=== PATIENT | female | born 1955 | race Caucasian/White ===

== ENCOUNTER 2017-04-30 16:00 | Outpatient (RCR) | payer MEDICAID, SELFPAY ==
[2017-03-31 00:25] VITALS: BP 134/72; PULSE 59; RESP 18; TEMP 36.1
[2017-04-23 16:08] VITALS: BP 136/89; PULSE 63; RESP 16; TEMP 35.7
--- NOTE | 2017-04-23 23:35 | PN.PCM_ITS ---
(1) Localized edema Status: Chronic Code(s): R60.0 - Localized edema (2) Chronic ulcer of left lower extremity with fat layer exposed Status: Resolved Code(s): L97.922 - Non-pressure chronic ulcer of unspecified part of left lower leg with fat layer exposed (3) Venous insufficiency Status: Chronic Code(s): I87.2 - Venous insufficiency (chronic) (peripheral) Type of Wound Date of Service: 04/26/17 Chief Complaint: Chronic ulcer to the left lower extremity History of Wound: This 61 year old patient returns to the wound healing center for follow up of her chronic ulcer to her left ellison that has returned this past week. She has continued bilateral lower extremity edema. She denies fever, chills, nausea, vomiting, leg pain, shortness of breath, chest pain. She had venous ablation procedure performed with . She admits she has not been wearing compression dressing since her last visit. She denies trauma. Progress of Wound: Wound return - Physical Exam Vital Signs Temp Pulse Resp BP 96.2 F L 63 16 136/89 H 04/23/17 16:08 04/23/17 16:08 04/23/17 16:08 04/23/17 16:08 General: Alert, Oriented x3, Cooperative Extremities: No cyanosis, Capillary Refill Less than 3 Seconds, No Calf Tenderness - Negative [place] and Castillo sign bilateral, Diminished Peripheral Pulses, Edema Skin: Ulcer/ Wound - No purulence, no erythema, no streaking, no odor, no infection bilateral. The skin is atrophic bilateral Wound Measurements and Assessment - Nurse 1 - General Ulcer Measurement Start: 04/23/17 16:01 Freq: Status: Active Protocol: Activity Type Activity Date Activity User E-Sign Co-Sign Detail Recorded Client Recorded Date Recorded By Document 04/23/17 16:01 MW [id number] 04/23/17 16:07 MW 04/23/17 16:01 Wound Center Nurse 1 [Ulcer Assessment Protocol: MINDY.WD.LOC] #3 Left [place] -Combined with other wound No -Current Size (cm) - Length 2.5 -Current Size (cm) - Width 2.1 -Current Size (cm) - Depth 0.1 -Total Square Cm 5.25 -Date of Last Picture (Recall this 04/23/17 field) -Photo Taken Yes -Epithelialization None Present -Tunneling No -Undermining/Tunneling No -Circular Undermining No -Exudate Amt Small (1-33%) -Exudate Type Serosanguineous -Wound Margin Flat & Intact -Granulation Amt Medium (34-66%) -Granulation Quality Red -Slough/Fibrin Yes -Necrosis Amt Small (1-33%) -Necrotic Tissue Type Adherent Slough -Structure Exposed N/A -Texture (Jenny-wound Skin Appearance) Assessed Localized Edema Scarring -Moisture (Jenny-wound Skin Appearance Assessed ) Dry/Scaly -Color (Jenny-wound Skin Appearance) Assessed Erythema Hemosiderin Staining -Temperature (Jenny-wound Skin No Abnormality Appearance) (Pt Warm) -Tenderness on Palpation (Jenny-wound No Skin Appearance) -Ulcer Cleansing Rinsed/ Irrigated with Saline -Foul Odor after Cleansing No -Anesthetic Used 4% Lidocaine Solution [Edema Assessment] -Lower Limb Edema Present Yes -Left Calf (cm) 50.2 -Left Ankle (cm) 30.6 WC - Nurse 2 - General Ulcer CM Notes Start: 04/23/17 16:01 Freq: Status: Active Protocol: Activity Type Activity Date Activity User E-Sign Co-Sign Detail Recorded Client Recorded Date Recorded By Document 04/23/17 16:45 [id number] 04/23/17 16:45 04/23/17 16:45 Wound Center Nurse 2 [Procedure/Treatment] #3 Left [place] -Time 16:45 -Correct Patient Yes -Correct Side, Site, Position Yes -Correct Procedure Yes -Procedure Performed Yes -Type of Procedure Debridement -Clinical Debridement Subcutaneous -Post Debridement Size (cm) - Length 2.5 -Post Debridement Size (cm) - Width 2.2 -Post Debridement Size (cm) - Depth 0.1 -Total Square Cm 5.50 -Wound/Ulcer Outcome Not Healed -Ulcer Cleansing Rinsed/ Irrigated with Saline -Foul Odor after Cleansing No -Bioengineered Tissue No -Cetacaine [place] No -Bleeding Controlled with Pressure -Treatment Response Procedure Tolerated Well [See Physician Procedure note for Specifics] Pain Scale: 0-10 Numeric [Pain] -Is Patient Pain Free? Yes Musculoskeletal: No Tenderness to Palpation of Joints or Extremities, Muscle Wasting Neurological: - - Lack of epicritic sensation to light touch bilateral Psych/Mental Status: Normal Affect, Appropriate Debridement Note Post-Debridement Measurements/Treatment WC - Nurse 2 - General Ulcer CM Notes Start: 04/23/17 16:01 Freq: Status: Active Protocol: Activity Type Activity Date Activity User E-Sign Co-Sign Detail Recorded Client Recorded Date Recorded By Document 04/23/17 16:45 JEFF [id number] 04/23/17 16:45 JEFF 04/23/17 16:45 Wound Center Nurse 2 #3 Left [place] -Time 16:45 -Correct Patient Yes -Correct Side, Site, Position Yes -Correct Procedure Yes -Procedure Performed Yes -Type of Procedure Debridement -Clinical Debridement Subcutaneous -Post Debridement Size (cm) - Length 2.5 -Post Debridement Size (cm) - Width 2.2 -Post Debridement Size (cm) - Depth 0.1 -Total Square Cm 5.50 -Wound/Ulcer Outcome Not Healed -Ulcer Cleansing Rinsed/ Irrigated with Saline -Foul Odor after Cleansing No -Bioengineered Tissue No -Cetacaine [place] No -Bleeding Controlled with Pressure -Treatment Response Procedure Tolerated Well Pain Scale: 0-10 Numeric Is Patient Pain Free? Yes Wound debrided: Leg Laterality: Left Type of Debridement: Excisional debridement Anesthesia Used: 4% Lidocaine Solution Depth: in the subcutaneous layer Percentage of wound debrided: 100 Instrument Used: #15 blade Tissue Removed: Fibrous, devitalized subcutaneous, biofilm, slough Severity: Fat Layer Exposed Amount of bleeding with debridement: Mild Bleeding Controlled with: Pressure Patient tolerated procedure well Assessment/Plan Assessment: Chronic ulcer to the left ellison -healed today. Bilateral lower extremity edema / venous insufficiency now status post intervention. acute deep venous thrombosis left lower extremity treated and now resolved Plan: I reviewed and discussed the case with the patient today. Her ulcer site has returned today. The ulcer site was debrided subcutaneously as noted in the clinical panel. A dressing of [place] was applied. An additional compression dressing, 3M2L was applied. To return for a wound center nurse visit midweek to change his compression dressing. Compliance was reiterated today and she has recently been adherent. A new prescription for CircAid compression wraps were provided. . We discussed long-term compression options including compression stockings with zippers, Circaid wraps, or utilizing a compression stocking donning device. She is unable to make a decision at this time and elects to think about it the next week.
[2017-04-30 15:54] VITALS: BP 140/72; PULSE 69; RESP 18; TEMP 36.6
--- NOTE | 2017-04-30 16:07 | PCM.WC.PN ---
(1) Chronic ulcer of left lower extremity with fat layer exposed Status: Chronic Current Visit: Yes Code(s): L97.922 - Non-pressure chronic ulcer of unspecified part of left lower leg with fat layer exposed (2) Localized edema Status: Chronic Current Visit: Yes Code(s): R60.0 - Localized edema (3) Venous insufficiency Status: Chronic Current Visit: Yes Code(s): I87.2 - Venous insufficiency (chronic) (peripheral) Type of Wound Date of Service: 04/30/17 Chief Complaint: Chronic ulcer to the left lower extremity History of Wound: This 61 year old patient returns to the wound healing center for follow up of her chronic ulcer to her left ellison that has returned recently. She has continued bilateral lower extremity edema. She had venous ablation procedure performed with . She admits she has not been wearing compression dressing since her last visit as advised and has difficulty placing his on. She she did think about which type of compression device would work best for her and elects to proceed forward with the CircAid Velcro wraps. She denies fever, chill, nausea, vomiting, loss of appetite. Progress of Wound: Stable - Physical Exam Vital Signs Temp Pulse Resp BP 97.8 F 69 18 140/72 H 04/30/17 15:54 04/30/17 15:54 04/30/17 15:54 04/30/17 15:54 General: Alert, Oriented x3, Cooperative Extremities: No cyanosis, Capillary Refill Less than 3 Seconds, No Calf Tenderness - Negative Castillo sign bilateral, Diminished Peripheral Pulses, Edema - +3 bilateral lower extremities Skin: Ulcer/ Wound - No purulence, no erythema, no streaking, no odor, no infection left lower extremity. The peripheral skin is atrophic. Wound Measurements and Assessment WC - Nurse 1 - General Ulcer Measurement Start: 04/23/17 16:01 Freq: Status: Active Protocol: Activity Type Activity Date Activity User E-Sign Co-Sign Detail Recorded Client Recorded Date Recorded By Document 04/30/17 15:54 RB [id number] 04/30/17 15:57 RB 04/30/17 15:54 Wound Center Nurse 1 [Ulcer Assessment Protocol: MINDY.WD.LOC] #3 Left [place] -Combined with other wound No -Current Size (cm) - Length 3.1 -Current Size (cm) - Width 2.6 -Current Size (cm) - Depth 0.1 -Total Square Cm 8.06 -Photo Taken No -Tunneling No -Undermining/Tunneling No -Circular Undermining No -Classification - Thickness Full Thickness without Exposed Support Structure -Exudate Amt Small (1-33%) -Exudate Type Serosanguineous -Wound Margin Distinct, Outline Attached -Granulation Amt Medium (34-66%) -Granulation Quality Red -Slough/Fibrin Yes -Necrosis Amt Medium (34-66%) -Necrotic Tissue Type Adherent Slough -Structure Exposed N/A -Texture (Jenny-wound Skin Appearance) Assessed -Moisture (Jenny-wound Skin Appearance Assessed ) -Color (Jenny-wound Skin Appearance) Hemosiderin Staining -Temperature (Jenny-wound Skin No Abnormality Appearance) (Pt Warm) -Tenderness on Palpation (Jenny-wound No Skin Appearance) -Ulcer Cleansing Wound Cleanser -Foul Odor after Cleansing No -Anesthetic Used 4% Lidocaine Solution [Edema Assessment] -Lower Limb Edema Present Yes -Left Calf (cm) 45 -Left Ankle (cm) 27 WC - Nurse 2 - General Ulcer CM Notes Start: 04/23/17 16:01 Freq: Status: Active Protocol: Activity Type Activity Date Activity User E-Sign Co-Sign Detail Recorded Client Recorded Date Recorded By Document 04/30/17 16:04 [id number] 04/30/17 16:05 JEFF 04/30/17 16:04 Wound Center Nurse 2 [Procedure/Treatment] #3 Left [place] -Time 16:05 -Correct Patient Yes -Correct Side, Site, Position Yes -Correct Procedure Yes -Procedure Performed Yes -Type of Procedure Debridement -Clinical Debridement Subcutaneous -Post Debridement Size (cm) - Length 3.2 -Post Debridement Size (cm) - Width 2.6 -Post Debridement Size (cm) - Depth 0.1 -Total Square Cm 8.32 -Wound/Ulcer Outcome Not Healed -Ulcer Cleansing Rinsed/ Irrigated with Saline -Foul Odor after Cleansing No -Bioengineered Tissue No -Cetacaine [place] No -Bleeding Controlled with Pressure -Treatment Response Procedure Tolerated Well [See Physician Procedure note for Specifics] Pain Scale: 0-10 Numeric [Pain] -Is Patient Pain Free? Yes Musculoskeletal: No Tenderness to Palpation of Joints or Extremities, Muscle Wasting, Tenderness - Pain with wound manipulation, - - Compartment left lower extremity are soft Neurological: - - Lack of sensation to light touch periwound and intact with wound debridement discomfort Psych/Mental Status: Normal Affect, Appropriate Debridement Note Post-Debridement Measurements/Treatment WC - Nurse 2 - General Ulcer CM Notes Start: 04/23/17 16:01 Freq: Status: Active Protocol: Activity Type Activity Date Activity User E-Sign Co-Sign Detail Recorded Client Recorded Date Recorded By Document 04/23/17 16:45 [id number] 04/23/17 16:45 Document 04/30/17 16:04 [id number] 04/30/17 16:05 04/23/17 04/30/17 16:45 16:04 Wound Center Nurse 2 #3 Left [place] -Time 16:45 16:05 -Correct Patient Yes Yes -Correct Side, Site, Position Yes Yes -Correct Procedure Yes Yes -Procedure Performed Yes Yes -Type of Procedure Debridement Debridement -Clinical Debridement Subcutaneous Subcutaneous -Post Debridement Size (cm) - Length 2.5 3.2 -Post Debridement Size (cm) - Width 2.2 2.6 -Post Debridement Size (cm) - Depth 0.1 0.1 -Total Square Cm 5.50 8.32 -Wound/Ulcer Outcome Not Healed Not Healed -Ulcer Cleansing Rinsed/ Rinsed/ Irrigated with Irrigated with Saline Saline -Foul Odor after Cleansing No No -Bioengineered Tissue No No -Cetacaine [place] No No -Bleeding Controlled with Pressure Pressure -Treatment Response Procedure Procedure Tolerated Well Tolerated Well Pain Scale: 0-10 Numeric Is Patient Pain Free? Yes Yes Wound debrided: Leg Laterality: Left Type of Debridement: Excisional debridement Anesthesia Used: 4% Lidocaine Solution Depth: in the subcutaneous layer Percentage of wound debrided: 100 Instrument Used: 5mm curette Tissue Removed: Fibrous, devitalized subcutaneous, biofilm, slough Severity: Fat Layer Exposed Amount of bleeding with debridement: Mild Bleeding Controlled with: Pressure Patient tolerated procedure well Assessment/Plan Active Problems Localized edema (Chronic) Chronic ulcer of left lower extremity with fat layer exposed (Chronic) Venous insufficiency (Chronic) Assessment: Chronic ulcer to the left ellison. Bilateral lower extremity edema / venous insufficiency now status post intervention. acute deep venous thrombosis left lower extremity treated and now resolved Plan: I reviewed and discussed the case with the patient today. The ulcer site was debrided subcutaneously as noted in the clinical panel. A dressing of [place] was applied. An additional compression dressing, 3M2L was applied. Compliance was reiterated today and she has recently been adherent. A new prescription for CircAid compression wraps were provided today; she elects to proceed forward with this device. . To resume nutritional supplementation to optimize healing. To avoid idle standing and sitting to help reduce fluid collection in the lower extremities. She was reassured no signs of infection noted today. To monitor. To return to clinic in 1 week at the wound care center or call sooner if questions or concerns. I answered all of her questions today.
== END 2017-04-30 23:59 ==
LOC: WC 16:00
PROVIDERS: Family Provider Internal Medicine; PCP Internal Medicine; Visit Provider Podiatrist
DX: I87.2 Venous insufficiency (chronic) (peripheral) (principal); R60.0 Localized edema; L97.822 Non-pressure chronic ulcer of other part of left lower leg with fat layer exposed; Z86.718 Personal history of other venous thrombosis and embolism
CPT/HCPCS: 11042; 29581

== ENCOUNTER 2017-05-28 16:00 | Outpatient (RCR) | payer MEDICAID, SELFPAY ==
[2017-04-30 15:54] VITALS: BP 140/72
[2017-05-01 00:28] VITALS: PULSE 69; RESP 18; TEMP 36.6
[2017-05-07 15:54] VITALS: BP 142/68; PULSE 71; RESP 18; TEMP 36.4
--- NOTE | 2017-05-07 16:53 | PCM.WC.PN ---
(1) Left leg pain Status: Chronic Current Visit: Yes Code(s): M79.605 - Pain in left leg (2) Deep vein thrombosis, lower left extremity Status: Suspected Current Visit: Yes Code(s): I82.402 - Acute embolism and thrombosis of unspecified deep veins of left lower extremity (3) Venous insufficiency of left leg Status: Chronic Current Visit: No Code(s): I87.2 - Venous insufficiency (chronic) (peripheral) (4) Chronic ulcer of left lower extremity with fat layer exposed Status: Chronic Current Visit: Yes Code(s): L97.922 - Non-pressure chronic ulcer of unspecified part of left lower leg with fat layer exposed (5) Venous insufficiency Status: Chronic Current Visit: Yes Code(s): I87.2 - Venous insufficiency (chronic) (peripheral) Type of Wound Date of Service: 05/07/17 Chief Complaint: Chronic ulcer to the left lower extremity History of Wound: This 61 year old patient returns to the wound healing center for follow up of her chronic ulcer to her left ellison that has returned recently. She has continued bilateral lower extremity edema. She had venous ablation procedure performed with . This [employer] compression wrap [employer] has called her and she has not been able to answer return the phone calls. She denies fever, chill, nausea, vomiting, loss of appetite. She does have recent increased left leg discomfort with touch. She denies shortness of breath or chest pain. Progress of Wound: Stable - Physical Exam Vital Signs Temp Pulse Resp BP 97.5 F L 71 18 142/68 H 05/07/17 15:54 05/07/17 15:54 05/07/17 15:54 05/07/17 15:54 General: Alert, Oriented x3, Cooperative Extremities: No cyanosis, Capillary Refill Less than 3 Seconds, Diminished Peripheral Pulses, Edema - Increased left lower extremity, Tenderness - Positive Castillo sign left lower extremity and negative right lower extremity. There is no left leg erythema or calor. Skin: Ulcer/ Wound - No purulence, no erythema, streaking, no necrosis, no infection, no odor left lower extremity. The peripheral skin is atrophic. There is improved and increased granulation tissue to the wound today. Wound Measurements and Assessment WC - Nurse 1 - General Ulcer Measurement Start: 05/07/17 15:54 Freq: Status: Active Protocol: Activity Type Activity Date Activity User E-Sign Co-Sign Detail Recorded Client Recorded Date Recorded By Document 05/07/17 15:54 RB [id number] 05/07/17 16:05 RB 05/07/17 15:54 Wound Center Nurse 1 [Ulcer Assessment Protocol: WC.WD.LOC] #3 Left [place] -Combined with other wound No -Current Size (cm) - Length 3.6 -Current Size (cm) - Width 3 -Current Size (cm) - Depth 0.2 -Total Square Cm 10.8 -Photo Taken No -Epithelialization Small 1-33% -Tunneling No -Undermining/Tunneling No -Circular Undermining No -Classification - Thickness Full Thickness without Exposed Support Structure -Exudate Amt Medium (34-66%) -Exudate Type Serosanguineous -Wound Margin Fibrotic Scar, Thickened Scar -Granulation Amt Large (67-100%) -Granulation Quality [place] Red -Slough/Fibrin Yes -Necrosis Amt Small (1-33%) -Necrotic Tissue Type Adherent Slough -Structure Exposed N/A -Texture (Jenny-wound Skin Appearance) Assessed -Moisture (Jenny-wound Skin Appearance Assessed ) -Color (Jenny-wound Skin Appearance) Hemosiderin Staining -Temperature (Jenny-wound Skin No Abnormality Appearance) (Pt Warm) -Tenderness on Palpation (Jenny-wound No Skin Appearance) -Ulcer Cleansing Wound Cleanser -Foul Odor after Cleansing No -Anesthetic Used 5% Lidocaine Gel [Edema Assessment] -Left Calf (cm) 50 -Left Ankle (cm) 27 - Nurse 2 - General Ulcer CM Notes Start: 05/07/17 15:54 Freq: Status: Active Protocol: Activity Type Activity Date Activity User E-Sign Co-Sign Detail Recorded Client Recorded Date Recorded By Document 05/07/17 16:19 TM [id number] 05/07/17 16:21 05/07/17 16:19 Wound Center Nurse 2 [Procedure/Treatment] #3 Left [place] -Time 16:19 -Correct Patient Yes -Correct Side, Site, Position Yes -Correct Procedure Yes -Procedure Performed Yes -Type of Procedure Debridement -Clinical Debridement Subcutaneous -Post Debridement Size (cm) - Length 3.7 -Post Debridement Size (cm) - Width 3.1 -Post Debridement Size (cm) - Depth 0.2 -Total Square Cm 11.47 -Wound/Ulcer Outcome Not Healed -Ulcer Cleansing Rinsed/ Irrigated with Saline -Foul Odor after Cleansing No -Bioengineered Tissue No -Topical Lidocaine (%) 5 -Bleeding Controlled with Pressure -Treatment Response Procedure Tolerated Well [See Physician Procedure note for Specifics] Pain Scale: 0-10 Numeric [Pain] -Is Patient Pain Free? Yes Musculoskeletal: No Tenderness to Palpation of Joints or Extremities, Muscle Wasting, Tenderness - Scant tenderness with manipulation left leg Neurological: Sensory exam intact to light touch and pain Psych/Mental Status: Normal Affect, Appropriate Debridement Note Post-Debridement Measurements/Treatment WC - Nurse 2 - General Ulcer CM Notes Start: 05/07/17 15:54 Freq: Status: Active Protocol: Activity Type Activity Date Activity User E-Sign Co-Sign Detail Recorded Client Recorded Date Recorded By Document 05/07/17 16:19 [id number] 05/07/17 16:21 05/07/17 16:19 Wound Center Nurse 2 #3 Left [place] -Time 16:19 -Correct Patient Yes -Correct Side, Site, Position Yes -Correct Procedure Yes -Procedure Performed Yes -Type of Procedure Debridement -Clinical Debridement Subcutaneous -Post Debridement Size (cm) - Length 3.7 -Post Debridement Size (cm) - Width 3.1 -Post Debridement Size (cm) - Depth 0.2 -Total Square Cm 11.47 -Wound/Ulcer Outcome Not Healed -Ulcer Cleansing Rinsed/ Irrigated with Saline -Foul Odor after Cleansing No -Bioengineered Tissue No -Topical Lidocaine (%) 5 -Bleeding Controlled with Pressure -Treatment Response Procedure Tolerated Well Pain Scale: 0-10 Numeric Is Patient Pain Free? Yes Wound debrided: anterior leg Laterality: Left Type of Debridement: Excisional debridement Anesthesia Used: 4% Lidocaine Solution Depth: in the subcutaneous layer Percentage of wound debrided: 100 Instrument Used: #15 blade Tissue Removed: Fibers, devitalized subcutaneous, biofilm, slough Severity: Fat Layer Exposed Amount of bleeding with debridement: Mild Bleeding Controlled with: Pressure Patient tolerated procedure well Assessment/Plan Active Problems Left leg pain (Acute) Left leg pain (Chronic) Chronic ulcer of left lower extremity with fat layer exposed (Chronic) Venous insufficiency (Chronic) Assessment: Chronic and recurrent ulcer to the left ellison. Rule out suspected acute on chronic deep venous thrombosis left lower extremity. Left leg pain returned. Bilateral lower extremity edema / venous insufficiency now status post intervention. acute deep venous thrombosis left lower extremity treated and now resolved Plan: I reviewed and discussed the case with the patient today. The ulcer site was debrided subcutaneously as noted in the clinical panel. A dressing of [place] was applied. An additional compression dressing, 3M2L was applied. Compliance was reiterated today. A new prescription for CircAid compression wraps provided at her last visit and CircAid company contact information was provided today. She was urged to return their phone calls to proceed forward with the ordering. . To resume nutritional supplementation to optimize healing. To avoid idle standing and sitting to help reduce fluid collection in the lower extremities. She was reassured no signs of infection noted today. To monitor. Concerned of her increased left leg swelling and return of discomfort with compression of the calf. I ordered a venous Doppler to rule out a deep venous thrombosis to obtain an urgent manner. I will follow-up on the results with her promptly upon completion of the test. Updated labs were also ordered today including CBC and CMP. To return to clinic in 1 week at the wound care center or call sooner if questions or concerns. I answered all of her questions today.
--- NOTE | 2017-05-07 16:59 | PN.PCM_ITS ---
(1) Left leg pain Status: Chronic Current Visit: Yes Code(s): M79.605 - Pain in left leg (2) Deep vein thrombosis, lower left extremity Status: Suspected Current Visit: Yes Code(s): I82.402 - Acute embolism and thrombosis of unspecified deep veins of left lower extremity (3) Venous insufficiency of left leg Status: Chronic Current Visit: No Code(s): I87.2 - Venous insufficiency ( chronic) (peripheral) (4) Chronic ulcer of left lower extremity with fat layer exposed Status: Chronic Current Visit: Yes Code(s): L97.922 - Non-pressure chronic ulcer of unspecified part of left lower leg with fat layer exposed (5) Venous insufficiency Status: Chronic Current Visit: Yes Code(s): I87.2 - Venous insufficiency ( chronic) (peripheral) Type of Wound Date of Service: 05/07/17 Chief Complaint: Chronic ulcer to the left lower extremity History of Wound: This 61 year old patient returns to the wound healing center for follow up of her chronic ulcer to her left ellison that has returned recently. She has continued bilateral lower extremity edema. She had venous ablation procedure performed with . This [email or web address] compression wrap [employer] has called her and she has not been able to answer return the phone calls. She denies fever, chill, nausea, vomiting, loss of appetite. She does have recent increased left leg discomfort with touch. She denies shortness of breath or chest pain. Progress of Wound: Stable - Physical Exam Vital Signs Temp Pulse Resp BP 97.5 F L 71 18 142/68 H 05/07/17 15:54 05/07/17 15:54 05/07/17 15:54 05/07/17 15:54 General: Alert, Oriented x3, Cooperative Extremities: No cyanosis, Capillary Refill Less than 3 Seconds, Diminished Peripheral Pulses, Edema - Increased left lower extremity, Tenderness - Positive Castillo sign left lower extremity and negative right lower extremity. There is no left leg erythema or calor. Skin: Ulcer/ Wound - No purulence, no erythema, streaking, no necrosis, no infection, no odor left lower extremity. The peripheral skin is atrophic. There is improved and increased granulation tissue to the wound today. Wound Measurements and Assessment WC - Nurse 1 - General Ulcer Measurement Start: 05/07/17 15:54 Freq: Status: Active Protocol: Activity Type Activity Date Activity User E-Sign Co-Sign Detail Recorded Client Recorded Date Recorded By Document 05/07/17 15:54 RB [id number] 05/07/17 16:05 RB 05/07/17 15:54 Wound Center Nurse 1 [Ulcer Assessment Protocol: WC.WD.LOC] #3 Left Ellison -Combined with other wound No -Current Size (cm) - Length 3.6 -Current Size (cm) - Width 3 -Current Size (cm) - Depth 0.2 -Total Square Cm 10.8 -Photo Taken No -Epithelialization Small 1-33% -Tunneling No -Undermining/Tunneling No -Circular Undermining No -Classification - Thickness Full Thickness without Exposed Support Structure -Exudate Amt Medium (34-66%) -Exudate Type Serosanguineous -Wound Margin Fibrotic Scar, Thickened Scar -Granulation Amt Large (67-100%) -Granulation Quality [place] Red -Slough/Fibrin Yes -Necrosis Amt Small (1-33%) -Necrotic Tissue Type Adherent Slough -Structure Exposed N/A -Texture (Jenny-wound Skin Appearance) Assessed -Moisture (Jenny-wound Skin Appearance Assessed ) -Color (Jenny-wound Skin Appearance) Hemosiderin Staining -Temperature (Jenny-wound Skin No Abnormality Appearance) (Pt Warm) -Tenderness on Palpation (Jenny-wound No Skin Appearance) -Ulcer Cleansing Wound Cleanser -Foul Odor after Cleansing No -Anesthetic Used 5% Lidocaine Gel [Edema Assessment] -Left Calf (cm) 50 -Left Ankle (cm) 27 - Nurse 2 - General Ulcer CM Notes Start: 05/07/17 15:54 Freq: Status: Active Protocol: Activity Type Activity Date Activity User E-Sign Co-Sign Detail Recorded Client Recorded Date Recorded By Document 05/07/17 16:19 TM [id number] 05/07/17 16:21 05/07/17 16:19 Wound Center Nurse 2 [Procedure/Treatment] #3 Left [place] -Time 16:19 -Correct Patient Yes -Correct Side, Site, Position Yes -Correct Procedure Yes -Procedure Performed Yes -Type of Procedure Debridement -Clinical Debridement Subcutaneous -Post Debridement Size (cm) - Length 3.7 -Post Debridement Size (cm) - Width 3.1 -Post Debridement Size (cm) - Depth 0.2 -Total Square Cm 11.47 -Wound/Ulcer Outcome Not Healed -Ulcer Cleansing Rinsed/ Irrigated with Saline -Foul Odor after Cleansing No -Bioengineered Tissue No -Topical Lidocaine (%) 5 -Bleeding Controlled with Pressure -Treatment Response Procedure Tolerated Well [See Physician Procedure note for Specifics] Pain Scale: 0-10 Numeric [Pain] -Is Patient Pain Free? Yes Musculoskeletal: No Tenderness to Palpation of Joints or Extremities, Muscle Wasting, Tenderness - Scant tenderness with manipulation left leg Neurological: Sensory exam intact to light touch and pain Psych/Mental Status: Normal Affect, Appropriate Debridement Note Post-Debridement Measurements/Treatment WC - Nurse 2 - General Ulcer CM Notes Start: 05/07/17 15:54 Freq: Status: Active Protocol: Activity Type Activity Date Activity User E-Sign Co-Sign Detail Recorded Client Recorded Date Recorded By Document 05/07/17 16:19 [id number] 05/07/17 16:21 05/07/17 16:19 Wound Center Nurse 2 #3 Left Ellison -Time 16:19 -Correct Patient Yes -Correct Side, Site, Position Yes -Correct Procedure Yes -Procedure Performed Yes -Type of Procedure Debridement -Clinical Debridement Subcutaneous -Post Debridement Size (cm) - Length 3.7 -Post Debridement Size (cm) - Width 3.1 -Post Debridement Size (cm) - Depth 0.2 -Total Square Cm 11.47 -Wound/Ulcer Outcome Not Healed -Ulcer Cleansing Rinsed/ Irrigated with Saline -Foul Odor after Cleansing No -Bioengineered Tissue No -Topical Lidocaine (%) 5 -Bleeding Controlled with Pressure -Treatment Response Procedure Tolerated Well Pain Scale: 0-10 Numeric Is Patient Pain Free? Yes Wound debrided: anterior leg Laterality: Left Type of Debridement: Excisional debridement Anesthesia Used: 4% Lidocaine Solution Depth: in the subcutaneous layer Percentage of wound debrided: 100 Instrument Used: #15 blade Tissue Removed: Fibers, devitalized subcutaneous, biofilm, slough Severity: Fat Layer Exposed Amount of bleeding with debridement: Mild Bleeding Controlled with: Pressure Patient tolerated procedure well Assessment/Plan Active Problems Left leg pain (Acute) Left leg pain (Chronic) Chronic ulcer of left lower extremity with fat layer exposed (Chronic) Venous insufficiency (Chronic) Assessment: Chronic and recurrent ulcer to the left ellison. Rule out suspected acute on chronic deep venous thrombosis left lower extremity. Left leg pain returned. Bilateral lower extremity edema / venous insufficiency now status post intervention. acute deep venous thrombosis left lower extremity treated and now resolved Plan: I reviewed and discussed the case with the patient today. The ulcer site was debrided subcutaneously as noted in the clinical panel. A dressing of [place] was applied. An additional compression dressing, 3M2L was applied. Compliance was reiterated today. A new prescription for CircAid compression wraps provided at her last visit and CircA[employer] company contact information was provided today. She was urged to return their phone calls to proceed forward with the ordering. . To resume nutritional supplementation to optimize healing. To avoid idle standing and sitting to help reduce fluid collection in the lower extremities. She was reassured no signs of infection noted today. To monitor. Concerned of her increased left leg swelling and return of discomfort with compression of the calf. I ordered a venous Doppler to rule out a deep venous thrombosis to obtain an urgent manner. I will follow-up on the results with her promptly upon completion of the test. Updated labs were also ordered today including CBC and CMP. To return to clinic in 1 week at the wound care center or call sooner if questions or concerns. I answered all of her questions today.
[2017-05-07 17:55] LABS: Absolute Lymphocyte Count 1.91 X10^3/ul (0.83-4.51); Absolute Neutrophil Count 4.6 X10^3/uL (2.0-7.7); Basophil# 0.05 X10^3/uL; Basophil% 0.7 % (0-1); Eosinophil# 0.27 X10^3/uL; Eosinophils% 3.7 % (0-5); Hematocrit 40.8 % (37-47); Hemoglobin 12.9 g/dl (12.0-15.0); Lymphocyte # 1.91 X10^3/ul (4.0); Mean Corp Hgb Conc 31.6 g/gl (32-36); Mean Corpuscular Hgb 29.1 pg (27.0-32.0); Mean Corpuscular Volume 91.9 fL (81-99); Mean Platelet Vol. 11.2 fl (6.2-12.0); Monocyte# 0.51 X10^3/uL; Monocyte% 6.9 % (0-10); Neutrophil # 4.61 X10^3/uL (2.7-7.7); Neutrophil % 62.6 % (47-70); Platelet Count 234 K/mm3 (150-450); RBC Distribution Width CV 12.9 % (11.6-14.6); RBC Distribution Width SD 43.4 fl (35.1-43.9); Red Blood Count 4.44 M/mm3 (4.2-5.4); White Blood Count 7.4 K/mm3 (4.4-11.0)
[2017-05-07 18:15] LABS: POSITIVE COUNT NO; POSITIVE DIFFERENTIAL NO; POSITIVE MORPHOLOGY NO
[2017-05-07 19:02] LABS: AST(SGOT) 16 U/L (15-37); Alanine Aminotransfer ALT/SGPT 25 U/L (13-56); Albumin, Serum 3.6 g/dL (3.2-5.0); Alkaline Phosphatase 129 U/L (45-117); Anion Gap 8 (5-15); BUN 20 mg/dL (7-18); BUN/Creat Ratio 31.5 RATIO (10-20); Calcium,Total 9.9 mg/dL (8.5-10.1); Chloride 107 mmol/L (98-107); Creatinine, Serum 0.64 mg/dL (0.55-1.02); EST Glomerular Filtration Rate 101 mL/min (>60); Est Glom Filt Rate - Afr Amer 122 mL/min (>60); Globulin 3.6 g/dL (2.2-4.2); Glucose 115 mg/dL (74-106); Potassium 3.7 mmol/L (3.5-5.1); Protein, Total 7.2 g/dL (6.4-8.2); Sodium Level 143 mmol/L (136-145)
--- NOTE | 2017-05-09 08:24 | VDLE_ITS ---
Reason For Study: HX DVT, LLE pain, Venous Insufficiency RIGHT LEFT CFV is compressible, spontaneous, phasic, CFV is compressible, spontaneous, phasic, competent and demonstrates normal competent, and demonstrates normal augmentation. augmentation. FV is compressible, spontaneous, phasic, T/P Trunk is compressible. competent and demonstrates normal PTV is compressible. augmentation. LT PerV is compressible. POP V is compressible, spontaneous, phasic, FV & POP V are compressible, spontaneous, competent and demonstrates normal phasic, incompetent, and demonstrates reflux augmentation. > 1.0 seconds. T/P Trunk is compressible. SFJ is competent. PTV is compressible. GSV is dilated and noncompressible RT PerV is compressible. approximately 1.5 cm from SFJ through SFJ is incompetent > . 5 seconds. proximal calf. PT denies having an EVLA of GSV is incompetent throughout > .5 seconds. GSV. GSV measures 0.618 x 0.658 cm. GSV is compressible from mid calf to ankle. SSV is competent. SSV is competent. Procedure Exam performed in department. The study was technically difficult. The exam was diagnostic. A preliminary report was called and/or faxed to [facility]. Interpretation Summary Deep veins of the lower extremities are bilaterally patent and compressible segmentally. There is no evidence of deep vein thrombosis on either side. Valvular competence appears intact within the proximal deep venous system on the right . The right greater saphenous vein appears patent and compressible segmentally. On the left, the femoral vein and popliteal vein are incompetent. Acute superficial thrombophlebitis is noted in the left greater saphenous vein from 1.5 centimeters from the left sapheno-femoral junction to the left proximal calf. The left greater saphenous vein is patent and compressible from the mid-calf to the ankle. The right sapheno-femoral junction is incompetent. The left sapheno-femoral junction is competent. The right greater saphenous vein is competent. Small saphenous veins are patent and competent bilaterally. Ordering Physician: Honey Mendez Referring Physician: Sarah Barnes Performed By: Nga Carmichael, AVIVA, RVT
[2017-05-09 09:55] VITALS: BP 140/76; PULSE 70; RESP 18; TEMP 36.6
[2017-05-14 15:51] VITALS: BP 147/70; PULSE 78; RESP 18; TEMP 35.7
--- NOTE | 2017-05-14 16:37 | PN.PCM_ITS ---
(1) Left leg pain Status: Chronic Current Visit: Yes Code(s): M79.605 - Pain in left leg (2) Deep vein thrombosis, lower left extremity Status: Ruled-out Current Visit: Yes Code(s): I82.402 - Acute embolism and thrombosis of unspecified deep veins of left lower extremity (3) Venous insufficiency of left leg Status: Chronic Current Visit: Yes Code(s): I87.2 - Venous insufficiency ( chronic) (peripheral) (4) Chronic ulcer of left lower extremity with fat layer exposed Status: Chronic Current Visit: Yes Code(s): L97.922 - Non-pressure chronic ulcer of unspecified part of left lower leg with fat layer exposed (5) Venous insufficiency Status: Chronic Current Visit: Yes Code(s): I87.2 - Venous insufficiency ( chronic) (peripheral) Type of Wound Date of Service: 05/15/17 Chief Complaint: Chronic ulcer to the left lower extremity History of Wound: This 61 year old patient returns to the wound healing center for follow up of her chronic ulcer to her left ellison that has returned recently. She has continued bilateral lower extremity edema. She had venous ablation procedure performed with . This [employer] compression wrap [employer] has called her and she has not been able to answer return the phone calls. She denies fever, chill, nausea, vomiting, loss of appetite. She does have recent increased left leg discomfort with touch. She denies shortness of breath or chest pain.she completed the ordered leg scan. Progress of Wound: Stable - Physical Exam Vital Signs Temp Pulse Resp BP 96.2 F L 78 18 147/70 H 05/14/17 15:51 05/14/17 15:51 05/14/17 15:51 05/14/17 15:51 General: Alert, Oriented x3, Cooperative Extremities: No cyanosis, Capillary Refill Less than 3 Seconds, No Calf Tenderness - Pain with calf compression. Negative [place] left, Diminished Peripheral Pulses, Edema Skin: Ulcer/ Wound - No purulence, no erythema, no streaking, no odor, no infection. Skin is atrophic. No deep tissue exposed. Wound Measurements and Assessment WC - Nurse 1 - General Ulcer Measurement Start: 05/07/17 15:54 Freq: Status: Active Protocol: Activity Type Activity Date Activity User E-Sign Co-Sign Detail Recorded Client Recorded Date Recorded By Document 05/14/17 15:51 [id number] 05/14/17 15:54 RB 05/14/17 15:51 Wound Center Nurse 1 [Ulcer Assessment Protocol: MINDY.WD.LOC] #3 Left Ellison -Combined with other wound No -Current Size (cm) - Length 4 -Current Size (cm) - Width 2.3 -Current Size (cm) - Depth 0.1 -Total Square Cm 9.2 -Photo Taken No -Epithelialization Small 1-33% -Tunneling No -Undermining/Tunneling No -Circular Undermining No -Classification - Thickness Full Thickness without Exposed Support Structure -Exudate Amt Medium (34-66%) -Exudate Type Serosanguineous -Wound Margin Distinct, Outline Attached -Granulation Amt Large (67-100%) -Granulation Quality [place] Red -Slough/Fibrin Yes -Necrosis Amt Small (1-33%) -Necrotic Tissue Type Adherent Slough -Structure Exposed N/A -Texture (Jenny-wound Skin Appearance) Assessed -Moisture (Jenny-wound Skin Appearance Assessed ) -Color (Jenny-wound Skin Appearance) Assessed Hemosiderin Staining -Temperature (Jenny-wound Skin No Abnormality Appearance) (Pt Warm) -Tenderness on Palpation (Jenny-wound No Skin Appearance) -Ulcer Cleansing Wound Cleanser -Foul Odor after Cleansing No -Anesthetic Used 4% Lidocaine Solution [Edema Assessment] -Lower Limb Edema Present Yes -Left Calf (cm) 49.5 -Left Ankle (cm) 27 - Nurse 2 - General Ulcer CM Notes Start: 05/07/17 15:54 Freq: Status: Active Protocol: Activity Type Activity Date Activity User E-Sign Co-Sign Detail Recorded Client Recorded Date Recorded By Document 05/14/17 16:28 [id number] 05/14/17 16:28 05/14/17 16:28 Wound Center Nurse 2 [Procedure/Treatment] #3 Left [place] -Time 16:28 -Correct Patient Yes -Correct Side, Site, Position Yes -Correct Procedure Yes -Procedure Performed Yes -Type of Procedure Debridement -Clinical Debridement Subcutaneous -Post Debridement Size (cm) - Length 4 -Post Debridement Size (cm) - Width 2.4 -Post Debridement Size (cm) - Depth 0.1 -Total Square Cm 9.6 -Wound/Ulcer Outcome Not Healed -Ulcer Cleansing Rinsed/ Irrigated with Saline -Foul Odor after Cleansing No -Bioengineered Tissue No -Bleeding Controlled with Pressure -Treatment Response Procedure Tolerated Well [See Physician Procedure note for Specifics] Pain Scale: 0-10 Numeric [Pain] -Is Patient Pain Free? Yes Musculoskeletal: No Tenderness to Palpation of Joints or Extremities, Muscle Wasting Neurological: - - Abnormal sensation periwound left leg Psych/Mental Status: Normal Affect, Appropriate Debridement Note Post-Debridement Measurements/Treatment WC - Nurse 2 - General Ulcer CM Notes Start: 05/07/17 15:54 Freq: Status: Active Protocol: Activity Type Activity Date Activity User E-Sign Co-Sign Detail Recorded Client Recorded Date Recorded By Document 05/07/17 16:19 TM [id number] 05/07/17 16:21 TM Document 05/14/17 16:28 [id number] 05/14/17 16:28 05/07/17 05/14/17 16:19 16:28 Wound Center Nurse 2 #3 Left Ellison -Time 16:19 16:28 -Correct Patient Yes Yes -Correct Side, Site, Position Yes Yes -Correct Procedure Yes Yes -Procedure Performed Yes Yes -Type of Procedure Debridement Debridement -Clinical Debridement Subcutaneous Subcutaneous -Post Debridement Size (cm) - Length 3.7 4 -Post Debridement Size (cm) - Width 3.1 2.4 -Post Debridement Size (cm) - Depth 0.2 0.1 -Total Square Cm 11.47 9.6 -Wound/Ulcer Outcome Not Healed Not Healed -Ulcer Cleansing Rinsed/ Rinsed/ Irrigated with Irrigated with Saline Saline -Foul Odor after Cleansing No No -Bioengineered Tissue No No -Topical Lidocaine (%) 5 -Bleeding Controlled with Pressure Pressure -Treatment Response Procedure Procedure Tolerated Well Tolerated Well Pain Scale: 0-10 Numeric Is Patient Pain Free? Yes Yes Wound debrided: leg Laterality: Left Wound Grade/Stage: grade 1 Type of Debridement: Excisional debridement Anesthesia Used: 4% Lidocaine Solution Depth: in the subcutaneous layer Percentage of wound debrided: 100 Instrument Used: #15 blade Tissue Removed: Fibrous, devitalized subcutaneous, biofilm, slough Severity: Fat Layer Exposed Amount of bleeding with debridement: Mild Bleeding Controlled with: Pressure Patient tolerated procedure well Assessment/Plan Active Problems Left leg pain (Acute) Left leg pain (Chronic) Venous insufficiency of left leg (Chronic) Chronic ulcer of left lower extremity with fat layer exposed (Chronic) Venous insufficiency (Chronic) Assessment: Chronic and recurrent ulcer to the left ellison. Rule out suspected acute on chronic deep venous thrombosis left lower extremity. Bilateral lower extremity edema / venous insufficiency now status post intervention. acute deep venous thrombosis left lower extremity treated and now resolved - no acute issue on venous duppler noted Plan: I reviewed and discussed the case with the patient today. The ulcer site was debrided subcutaneously as noted in the clinical panel. A dressing of [place] was applied. An additional compression dressing, 3M2L was applied. Compliance was reiterated today. A new prescription for CircAid compression wraps provided and she did not follow up with her phone call. She defers help and will try to remember this upcomign week. She was urged to return their phone calls to proceed forward with the ordering. . To resume nutritional supplementation to optimize healing. To avoid idle standing and sitting to help reduce fluid collection in the lower extremities. She was reassured no signs of infection noted today. To monitor. Concerned of her increased left leg swelling and return of discomfort with compression of the calf. I ordered a venous Doppler last week to rule out a deep venous thrombosis to obtain an urgent manner. This was negative for deep venous thrombosis. There is no reflux at the previous venous surgery site. There is some venous reflux noted at some of the lower extremity sites. The full report is in the electronic health record system. She will consider follow-up with her previous vascular surgeon if there is continued lack of wound healing. . Her CBC and CMP were reviewed. No leukocytosis is noted. Her albumin levels 3.6. To return to clinic in 1 week at the wound care center or call sooner if questions or concerns. I answered all of her questions today.
[2017-05-21 15:56] VITALS: BP 144/82; PULSE 62; RESP 20; TEMP 36.1
--- NOTE | 2017-05-21 16:28 | PN.PCM_ITS ---
(1) Chronic ulcer of left lower extremity with fat layer exposed Status: Chronic Current Visit: Yes Code(s): L97.922 - Non-pressure chronic ulcer of unspecified part of left lower leg with fat layer exposed (2) Left leg pain Status: Chronic Current Visit: Yes Code(s): M79.605 - Pain in left leg (3) Deep vein thrombosis, lower left extremity Status: Ruled-out Current Visit: Yes Code(s): I82.402 - Acute embolism and thrombosis of unspecified deep veins of left lower extremity (4) Venous insufficiency of left leg Status: Chronic Current Visit: Yes Code(s): I87.2 - Venous insufficiency ( chronic) (peripheral) Type of Wound Date of Service: 05/21/17 Chief Complaint: Chronic ulcer to the left lower extremity History of Wound: This 61 year old patient returns to the wound healing center for follow up of her chronic ulcer to her left ellison that has returned recently. She has continued bilateral lower extremity edema. She had venous ablation procedure performed with . This [employer] compression wrap [employer] has called her and she has not been able to answer return the phone calls. She is very frustrated about this however defers help. She relates she needs to talk to her sister. She denies fever, chill, nausea, vomiting, loss of appetite. She does have recent increased left leg discomfort with touch. She denies shortness of breath or chest pain. Progress of Wound: Stable - Physical Exam Vital Signs Temp Pulse Resp BP 96.9 F L 62 20 H 144/82 H 05/21/17 15:56 05/21/17 15:56 05/21/17 15:56 05/21/17 15:56 General: Alert, Oriented x3, Cooperative Extremities: No cyanosis, Capillary Refill Less than 3 Seconds, No Calf Tenderness - Decreased palpation discomfort with posterior calf squeeze left, Diminished Peripheral Pulses, Edema Skin: Ulcer/ Wound - No purulence, no erythema, streaking, no odor, no infection. There is no crepitus on palpation. The compartments of the left lower extremity remain soft., - - Her skin is atrophic with scant hair left lower extremity Wound Measurements and Assessment WC - Nurse 1 - General Ulcer Measurement Start: 05/07/17 15:54 Freq: Status: Active Protocol: Activity Type Activity Date Activity User E-Sign Co-Sign Detail Recorded Client Recorded Date Recorded By Document 05/21/17 15:56 DL [id number] 05/21/17 16:05 DL 05/21/17 15:56 Wound Center Nurse 1 [Ulcer Assessment] #3 Left Ellison -Current Size (cm) - Length 3.8 -Current Size (cm) - Width 2.5 -Current Size (cm) - Depth 0.1 -Total Square Cm 9.50 -Photo Taken No -Exudate Amt Medium (34-66%) -Exudate Type Serosanguineous -Wound Margin Distinct, Outline Attached -Granulation Amt Large (67-100%) -Granulation Quality Red -Necrosis Amt None Present (0 %) -Structure Exposed N/A -Texture (Jenny-wound Skin Appearance) Scarring -Moisture (Jenny-wound Skin Appearance No Abnormality ) -Color (Jenny-wound Skin Appearance) Hemosiderin Staining -Temperature (Jenny-wound Skin No Abnormality Appearance) (Pt Warm) -Tenderness on Palpation (Jenny-wound No Skin Appearance) -Ulcer Cleansing Wound Cleanser -Foul Odor after Cleansing No -Anesthetic Used 4% Lidocaine Solution [Edema Assessment] -Left Calf (cm) 46 -Left Ankle (cm) 26.5 WC - Nurse 2 - General Ulcer CM Notes Start: 05/07/17 15:54 Freq: Status: Active Protocol: Activity Type Activity Date Activity User E-Sign Co-Sign Detail Recorded Client Recorded Date Recorded By Document 05/21/17 16:16 JF [id number] 05/21/17 16:18 05/21/17 16:16 Wound Center Nurse 2 [Procedure/Treatment] #3 Left Ellison -Time 16:17 -Correct Patient Yes -Correct Side, Site, Position Yes -Correct Procedure Yes -Procedure Performed Yes -Type of Procedure Debridement -Clinical Debridement Subcutaneous -Post Debridement Size (cm) - Length 3.8 -Post Debridement Size (cm) - Width 2.6 -Post Debridement Size (cm) - Depth 0.1 -Total Square Cm 9.88 -Wound/Ulcer Outcome Not Healed -Ulcer Cleansing Rinsed/ Irrigated with Saline -Foul Odor after Cleansing No -Bioengineered Tissue No -Bleeding Controlled with Pressure -Treatment Response Procedure Tolerated Well [See Physician Procedure note for Specifics] Pain Scale: 0-10 Numeric [Pain] -Is Patient Pain Free? Yes Musculoskeletal: No Tenderness to Palpation of Joints or Extremities, Muscle Wasting Neurological: - - Lack of epicritic sensation periwound left leg Psych/Mental Status: Normal Affect, Appropriate Debridement Note Post-Debridement Measurements/Treatment WC - Nurse 2 - General Ulcer CM Notes Start: 05/07/17 15:54 Freq: Status: Active Protocol: Activity Type Activity Date Activity User E-Sign Co-Sign Detail Recorded Client Recorded Date Recorded By Document 05/07/17 16:19 TM [id number] 05/07/17 16:21 TM Document 05/14/17 16:28 [id number] 05/14/17 16:28 Document 05/21/17 16:16 [id number] 05/21/17 16:18 05/07/17 05/14/17 05/21/17 16:19 16:28 16:16 Wound Center Nurse 2 #3 Left Ellison -Time 16:19 16:28 16:17 -Correct Patient Yes Yes Yes -Correct Side, Site, Position Yes Yes Yes -Correct Procedure Yes Yes Yes -Procedure Performed Yes Yes Yes -Type of Procedure Debridement Debridement Debridement -Clinical Debridement Subcutaneous Subcutaneous Subcutaneous -Post Debridement Size (cm) - Length 3.7 4 3.8 -Post Debridement Size (cm) - Width 3.1 2.4 2.6 -Post Debridement Size (cm) - Depth 0.2 0.1 0.1 -Total Square Cm 11.47 9.6 9.88 -Wound/Ulcer Outcome Not Healed Not Healed Not Healed -Ulcer Cleansing Rinsed/ Rinsed/ Rinsed/ Irrigated with Irrigated with Irrigated with Saline Saline Saline -Foul Odor after Cleansing No No No -Bioengineered Tissue No No No -Topical Lidocaine (%) 5 -Bleeding Controlled with Pressure Pressure Pressure -Treatment Response Procedure Procedure Procedure Tolerated Well Tolerated Well Tolerated Well Pain Scale: 0-10 Numeric Is Patient Pain Free? Yes Yes Yes Wound debrided: anterior leg Laterality: Left Type of Debridement: Excisional debridement Anesthesia Used: 4% Lidocaine Solution Assessment/Plan Active Problems Left leg pain (Acute) Left leg pain (Chronic) Venous insufficiency of left leg (Chronic) Chronic ulcer of left lower extremity with fat layer exposed (Chronic) Venous insufficiency (Chronic) Assessment: Chronic and recurrent ulcer to the left ellison. Ruled out - acute or chronic deep venous thrombosis left lower extremity. Venous insufficiency left lower extremity Plan: I reviewed and discussed the case with the patient today. The ulcer site was debrided subcutaneously as noted in the clinical panel. A dressing of [place] was applied. An additional compression dressing, 3M2L was applied. Compliance was reiterated today. A new prescription for CircAid compression wraps provided and she did not follow up with her phone call. She defers help and and says she is going to talk to her sister prior to proceeding forward with anything. She was encouraged to return their phone calls to proceed forward with the ordering. . To resume nutritional supplementation to optimize healing. To avoid idle standing and sitting to help reduce fluid collection in the lower extremities. Dr. Barnes suggested Lasix and management per Dr. Barnes will be encouraged. She was reassured no signs of infection noted today. To monitor. . There is no deep venous thrombosis noted in her recent venous Doppler. There is some venous reflux noted at some of the lower extremity sites. To follow-up with Dr. Bella. I offered to help arrange a follow-up. She defers relates she wants to discuss this with her sister prior to proceeding. Her CBC and CMP were reviewed. No leukocytosis is noted. Her albumin levels 3.6. To return to clinic in 1 week at the wound care center or call sooner if questions or concerns. I answered all of her questions today.
[2017-05-28 15:56] VITALS: BP 138/56; PULSE 71; RESP 18; TEMP 36.4
--- NOTE | 2017-05-28 16:34 | PCM.WC.PN ---
(1) Chronic ulcer of left lower extremity with fat layer exposed Status: Chronic Code(s): L97.922 - Non-pressure chronic ulcer of unspecified part of left lower leg with fat layer exposed (2) Left leg pain Status: Chronic Code(s): M79.605 - Pain in left leg (3) Deep vein thrombosis, lower left extremity Status: Ruled-out Code(s): I82.402 - Acute embolism and thrombosis of unspecified deep veins of left lower extremity (4) Venous insufficiency of left leg Status: Chronic Code(s): I87.2 - Venous insufficiency (chronic) (peripheral) Type of Wound Date of Service: 05/29/17 Chief Complaint: Chronic ulcer to the left lower extremity History of Wound: This 61 year old patient returns to the wound healing center for follow up of her chronic ulcer to her left gutierrez that has returned recently. She has continued bilateral lower extremity edema. She had venous ablation procedure performed with previously on the greater saphenous vein of the left lower extremity. She did proceed forward with completing the CircAid compression wrap and this will be mailed to her house soon. She denies fever, chill, nausea, vomiting, loss of appetite. She denies leg pain today. She is with her sister. Progress of Wound: Stable - Physical Exam Vital Signs Temp Pulse Resp BP 97.6 F L 71 18 138/56 H 05/28/17 15:56 05/28/17 15:56 05/28/17 15:56 05/28/17 15:56 General: Alert, Oriented x3, Cooperative Extremities: No cyanosis, Capillary Refill Less than 3 Seconds, No Calf Tenderness - Negative Italo and Castillo sign bilateral, Diminished Peripheral Pulses, Edema - Bilateral lower extremities Skin: Ulcer/ Wound - No purulence, no erythema, no streaking, no necrosis or exposed deep tissue left leg. The peripheral skin is atrophic. Most of the wound bed is healthy beefy granular Wound Measurements and Assessment WC - Nurse 1 - General Ulcer Measurement Start: 05/07/17 15:54 Freq: Status: Active Protocol: Activity Type Activity Date Activity User E-Sign Co-Sign Detail Recorded Client Recorded Date Recorded By Document 05/28/17 15:56 DL [id number] 05/28/17 16:05 DL 05/28/17 15:56 Wound Center Nurse 1 [Ulcer Assessment] #3 Left Gutierrez -Current Size (cm) - Length 3.8 -Current Size (cm) - Width 2.4 -Current Size (cm) - Depth 0.1 -Total Square Cm 9.12 -Photo Taken No -Exudate Amt Large (67-100%) -Exudate Type Serosanguineous -Wound Margin Distinct, Outline Attached -Granulation Amt Large (67-100%) -Granulation Quality Red -Necrosis Amt Small (1-33%) -Necrotic Tissue Type Adherent Slough -Structure Exposed N/A -Texture (Jenny-wound Skin Appearance) Scarring -Moisture (Jenny-wound Skin Appearance No Abnormality ) -Color (Jenny-wound Skin Appearance) Hemosiderin Staining -Temperature (Jenny-wound Skin No Abnormality Appearance) (Pt Warm) -Ulcer Cleansing Wound Cleanser -Foul Odor after Cleansing Yes, Due to Product Use -Anesthetic Used 4% Lidocaine Solution [Edema Assessment] -Left Calf (cm) 43.5 -Left Ankle (cm) 25.8 Musculoskeletal: No Tenderness to Palpation of Joints or Extremities, Muscle Wasting, - - No bogginess or crepitus on palpation periwound Neurological: - - Altered sensation light touch left periwound seems to be diminished Psych/Mental Status: Normal Affect, Appropriate Debridement Note Post-Debridement Measurements/Treatment WC - Nurse 2 - General Ulcer CM Notes Start: 05/07/17 15:54 Freq: Status: Active Protocol: Activity Type Activity Date Activity User E-Sign Co-Sign Detail Recorded Client Recorded Date Recorded By Document 05/07/17 16:19 [id number] 05/07/17 16:21 Document 05/14/17 16:28 [id number] 05/14/17 16:28 Document 05/21/17 16:16 [id number] 05/21/17 16:18 05/07/17 05/14/17 05/21/17 16:19 16:28 16:16 Wound Center Nurse 2 #3 Left Gutierrez -Time 16:19 16:28 16:17 -Correct Patient Yes Yes Yes -Correct Side, Site, Position Yes Yes Yes -Correct Procedure Yes Yes Yes -Procedure Performed Yes Yes Yes -Type of Procedure Debridement Debridement Debridement -Clinical Debridement Subcutaneous Subcutaneous Subcutaneous -Post Debridement Size (cm) - Length 3.7 4 3.8 -Post Debridement Size (cm) - Width 3.1 2.4 2.6 -Post Debridement Size (cm) - Depth 0.2 0.1 0.1 -Total Square Cm 11.47 9.6 9.88 -Wound/Ulcer Outcome Not Healed Not Healed Not Healed -Ulcer Cleansing Rinsed/ Rinsed/ Rinsed/ Irrigated with Irrigated with Irrigated with Saline Saline Saline -Foul Odor after Cleansing No No No -Bioengineered Tissue No No No -Topical Lidocaine (%) 5 -Bleeding Controlled with Pressure Pressure Pressure -Treatment Response Procedure Procedure Procedure Tolerated Well Tolerated Well Tolerated Well Pain Scale: 0-10 Numeric Is Patient Pain Free? Yes Yes Yes Wound debrided: leg Laterality: Left Type of Debridement: Excisional debridement Anesthesia Used: 4% Lidocaine Solution Depth: in the subcutaneous layer Percentage of wound debrided: 100 Instrument Used: #15 blade Tissue Removed: fibrous, devitalized subcutaneous, biofilm, slough Severity: Fat Layer Exposed Amount of bleeding with debridement: Mild Bleeding Controlled with: Pressure Patient tolerated procedure well Assessment/Plan Assessment: Chronic and recurrent ulcer to the left gutierrez. Ruled out - acute or chronic deep venous thrombosis left lower extremity. Venous insufficiency left lower extremity Plan: I reviewed and discussed the case with the patient today. The ulcer site was debrided subcutaneously as noted in the clinical panel. Verbal consent was obtained for application of advanced wound care product, epi fix. The indications, purpose, and anticipated healing time and management were discussed. This product was applied according to standard protocol was further secured in place with the wound veil and Steri-Strips. She tolerated this very well. She was advised to keep this clean, dry, and intact until follow-up visit next week. An additional compression dressing, 3M2L was applied. Compliance was reiterated today. A new prescription for CircAid compression wraps provided and she did complete the ordering process. This is currently being mailed to her home and she is advised to bring it and so we can review proper donning. . To resume nutritional supplementation to optimize healing. To avoid idle standing and sitting to help reduce fluid collection in the lower extremities. Dr. Barnes suggested Lasix and management per Dr. Barnes will be encouraged. She was reassured no signs of infection noted today. To monitor. . There is no deep venous thrombosis noted in her recent venous Doppler. There is some venous reflux noted at some of the lower extremity sites. To follow-up with Dr. Bella. 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 She relates she is ready to proceed and a referral has been made. Her CBC and CMP were reviewed. No leukocytosis is noted. Her albumin levels 3.6. To return to clinic in 1 week at the wound care center or call sooner if questions or concerns. I answered all of her questions today.
== END 2017-05-28 23:59 ==
LOC: WC 16:00
PROVIDERS: Family Provider Internal Medicine; PCP Internal Medicine; Visit Provider Podiatrist
DX: I87.2 Venous insufficiency (chronic) (peripheral) (principal); L97.822 Non-pressure chronic ulcer of other part of left lower leg with fat layer exposed; M79.605 Pain in left leg; R60.0 Localized edema; R09.89 Other specified symptoms and signs involving the circulatory and respiratory systems; M79.89 Other specified soft tissue disorders; Z86.718 Personal history of other venous thrombosis and embolism
CPT/HCPCS: 11042; 15271; 29581; 80053; 85025; 93970; 99213; Q4131; G0463

== ENCOUNTER 2017-06-25 16:00 | Outpatient (RCR) | payer MEDICAID, SELFPAY ==
[2017-05-29 00:27] VITALS: BP 140/76; PULSE 71; RESP 18; TEMP 36.4
[2017-06-04 16:02] VITALS: BP 138/70; PULSE 88; RESP 18; TEMP 36.9
--- NOTE | 2017-06-04 16:43 | PCM.WC.PN ---
(1) Chronic ulcer of left lower extremity with fat layer exposed Status: Chronic Current Visit: Yes Code(s): L97.922 - Non-pressure chronic ulcer of unspecified part of left lower leg with fat layer exposed (2) Delayed wound healing Status: Chronic Current Visit: Yes Code(s): T14.8 - Other injury of unspecified body region (3) Localized edema Status: Chronic Current Visit: Yes Code(s): R60.0 - Localized edema (4) Venous insufficiency of left leg Status: Chronic Current Visit: Yes Code(s): I87.2 - Venous insufficiency (chronic) (peripheral) Type of Wound Date of Service: 06/04/17 Chief Complaint: Chronic ulcer to the left lower extremity History of Wound: This 61 year old patient returns to the wound healing center for follow up of her chronic ulcer to her left gutierrez that has returned recently. She has continued bilateral lower extremity edema. She had venous ablation procedure performed with . This [employer] compression wrap [employer] has called her and she is waiting for the device to arrive in the mail. She denies fever, chill, nausea, vomiting, calf pain, or shortness of breath, or wound redness or odor. Progress of Wound: Stable - Physical Exam Vital Signs Temp Pulse Resp BP 98.4 F 88 18 138/70 H 06/04/17 16:02 06/04/17 16:02 06/04/17 16:02 06/04/17 16:02 General: Alert, Oriented x3, Cooperative Extremities: No cyanosis, Capillary Refill Less than 3 Seconds, No Calf Tenderness - Negative Italo and Castillo left, Diminished Peripheral Pulses, Edema Skin: Ulcer/ Wound - No purulence, no erythema, no streaking, no necrosis, no infection left leg. Her skin is atrophic. Wound Measurements and Assessment WC - Nurse 1 - General Ulcer Measurement Start: 06/04/17 16:02 Freq: Status: Active Protocol: Activity Type Activity Date Activity User E-Sign Co-Sign Detail Recorded Client Recorded Date Recorded By Document 06/04/17 16:02 DL [id number] 06/04/17 16:11 DL 06/04/17 16:02 Wound Center Nurse 1 [Ulcer Assessment] #3 Left Gutierrez -Current Size (cm) - Length 3.8 -Current Size (cm) - Width 2.4 -Current Size (cm) - Depth 0.1 -Total Square Cm 9.12 -Photo Taken No -Exudate Amt Medium (34-66%) -Exudate Type Serosanguineous -Wound Margin Distinct, Outline Attached -Granulation Amt Large (67-100%) -Granulation Quality Red -Necrosis Amt Small (1-33%) -Necrotic Tissue Type Adherent Slough -Structure Exposed N/A -Texture (Jenny-wound Skin Appearance) Scarring -Moisture (Jenny-wound Skin Appearance Maceration ) -Color (Jenny-wound Skin Appearance) Hemosiderin Staining -Temperature (Jenny-wound Skin No Abnormality Appearance) (Pt Warm) -Ulcer Cleansing Wound Cleanser -Foul Odor after Cleansing No -Anesthetic Used 4% Lidocaine Solution [Edema Assessment] -Left Calf (cm) 45.2 -Left Ankle (cm) 27.5 WC - Nurse 2 - General Ulcer CM Notes Start: 06/04/17 16:02 Freq: Status: Active Protocol: Activity Type Activity Date Activity User E-Sign Co-Sign Detail Recorded Client Recorded Date Recorded By Document 06/04/17 16:33 [id number] 06/04/17 16:34 06/04/17 16:33 Wound Center Nurse 2 [Procedure/Treatment] #3 Left Gutierrez -Time 16:33 -Correct Patient Yes -Correct Side, Site, Position Yes -Correct Procedure Yes -Procedure Performed Yes -Type of Procedure Debridement -Clinical Debridement Subcutaneous -Post Debridement Size (cm) - Length 3.8 -Post Debridement Size (cm) - Width 2.5 -Post Debridement Size (cm) - Depth 0.1 -Total Square Cm 9.50 -Wound/Ulcer Outcome Not Healed -Ulcer Cleansing Rinsed/ Irrigated with Saline -Foul Odor after Cleansing No -Bioengineered Tissue Yes -Type of bioengineered Tissue EPIFIX -Expiration Date 02/28/22 -Product Lot Number [id number] -Percent Used 100 -Saline Lot Number [id number] -Bleeding Controlled with Pressure -Treatment Response Procedure Tolerated Well [See Physician Procedure note for Specifics] Pain Scale: 0-10 Numeric [Pain] -Is Patient Pain Free? Yes Musculoskeletal: No Tenderness to Palpation of Joints or Extremities, Muscle Wasting, - - Compartments of the left leg remains soft and there is no crepitus Neurological: Sensory exam intact to light touch and pain Psych/Mental Status: Normal Affect, Appropriate Debridement Note Post-Debridement Measurements/Treatment WC - Nurse 2 - General Ulcer CM Notes Start: 06/04/17 16:02 Freq: Status: Active Protocol: Activity Type Activity Date Activity User E-Sign Co-Sign Detail Recorded Client Recorded Date Recorded By Document 06/04/17 16:33 [id number] 06/04/17 16:34 [id number] 06/04/17 16:33 Wound Center Nurse 2 #3 Left Gutierrez -Time 16:33 -Correct Patient Yes -Correct Side, Site, Position Yes -Correct Procedure Yes -Procedure Performed Yes -Type of Procedure Debridement -Clinical Debridement Subcutaneous -Post Debridement Size (cm) - Length 3.8 -Post Debridement Size (cm) - Width 2.5 -Post Debridement Size (cm) - Depth 0.1 -Total Square Cm 9.50 -Wound/Ulcer Outcome Not Healed -Ulcer Cleansing Rinsed/ Irrigated with Saline -Foul Odor after Cleansing No -Bioengineered Tissue Yes -Type of bioengineered Tissue EPIFIX -Expiration Date 02/28/22 -Product Lot Number [id number] -Percent Used 100 -Saline Lot Number [id number] -Bleeding Controlled with Pressure -Treatment Response Procedure Tolerated Well Pain Scale: 0-10 Numeric Is Patient Pain Free? Yes Wound debrided: Anterior leg Laterality: Left Type of Debridement: Excisional debridement Anesthesia Used: 4% Lidocaine Solution Depth: in the subcutaneous layer Percentage of wound debrided: 100 Instrument Used: 5mm curette Tissue Removed: fibrous, devitalized subcutaneous, biofilm, slough Severity: Fat Layer Exposed Amount of bleeding with debridement: Mild Bleeding Controlled with: Pressure Patient tolerated procedure well Assessment/Plan Active Problems Delayed wound healing (Chronic) Localized edema (Chronic) Venous insufficiency of left leg (Chronic) Chronic ulcer of left lower extremity with fat layer exposed (Chronic) Assessment: Chronic and recurrent ulcer to the left gutierrez. Ruled out - acute or chronic deep venous thrombosis left lower extremity. Venous insufficiency left lower extremity Plan: I reviewed and discussed the case with the patient today. The ulcer site was debrided subcutaneously as noted in the clinical panel. A dressing of [place] was applied. An additional compression dressing, 3M2L was applied. Compliance was reiterated today. A new prescription for CircAid compression wraps provided and the arrival in the mail is pending. She was encouraged to bring the devices and upon receipt so we can educate her on proper use. . To resume nutritional supplementation to optimize healing. To avoid idle standing and sitting to help reduce fluid collection in the lower extremities. Dr. Barnes suggested Lasix and management per Dr. Barnes will be encouraged. She was reassured no signs of infection noted today. To monitor. . There is no deep venous thrombosis noted in her recent venous Doppler. There is some venous reflux noted at some of the lower extremity sites. To follow-up with Dr. Bella. I called him to confirm his office site and availability and recommend a care plan for cath moving forward. He recommended improving compliance with compression dressings with 30-40 mmHg for the next 1-2 months. If delays in healing are noted he recommend following up in the clinical setting to see if additional intervention is appropriate. Teresa is amenable to this plan. Her CBC and CMP were reviewed. No leukocytosis is noted. Her albumin levels 3.6. To return to clinic in 1 week at the wound care center or call sooner if questions or concerns. I answered all of her questions today.
--- NOTE | 2017-06-04 16:47 | PN.PCM_ITS ---
(1) Chronic ulcer of left lower extremity with fat layer exposed Status: Chronic Current Visit: Yes Code(s): L97.922 - Non-pressure chronic ulcer of unspecified part of left lower leg with fat layer exposed (2) Delayed wound healing Status: Chronic Current Visit: Yes Code(s): T14.8 - Other injury of unspecified body region (3) Localized edema Status: Chronic Current Visit: Yes Code(s): R60.0 - Localized edema (4) Venous insufficiency of left leg Status: Chronic Current Visit: Yes Code(s): I87.2 - Venous insufficiency ( chronic) (peripheral) Type of Wound Date of Service: 06/04/17 Chief Complaint: Chronic ulcer to the left lower extremity History of Wound: This 61 year old patient returns to the wound healing center for follow up of her chronic ulcer to her left gutierrez that has returned recently. She has continued bilateral lower extremity edema. She had venous ablation procedure performed with . This [employer] compression wrap [facility] ([facility] has called her and she is waiting for the device to arrive in the mail. She denies fever, chill, nausea, vomiting, calf pain, or shortness of breath, or wound redness or odor. Progress of Wound: Stable - Physical Exam Vital Signs Temp Pulse Resp BP 98.4 F 88 18 138/70 H 06/04/17 16:02 06/04/17 16:02 06/04/17 16:02 06/04/17 16:02 General: Alert, Oriented x3, Cooperative Extremities: No cyanosis, Capillary Refill Less than 3 Seconds, No Calf Tenderness - Negative Italo and Castillo left, Diminished Peripheral Pulses, Edema Skin: Ulcer/ Wound - No purulence, no erythema, no streaking, no necrosis, no infection left leg. Her skin is atrophic. Wound Measurements and Assessment WC - Nurse 1 - General Ulcer Measurement Start: 06/04/17 16:02 Freq: Status: Active Protocol: Activity Type Activity Date Activity User E-Sign Co-Sign Detail Recorded Client Recorded Date Recorded By Document 06/04/17 16:02 DL [id number] 06/04/17 16:11 DL 06/04/17 16:02 Wound Center Nurse 1 [Ulcer Assessment] #3 Left Gutierrez -Current Size (cm) - Length 3.8 -Current Size (cm) - Width 2.4 -Current Size (cm) - Depth 0.1 -Total Square Cm 9.12 -Photo Taken No -Exudate Amt Medium (34-66%) -Exudate Type Serosanguineous -Wound Margin Distinct, Outline Attached -Granulation Amt Large (67-100%) -Granulation Quality Red -Necrosis Amt Small (1-33%) -Necrotic Tissue Type Adherent Slough -Structure Exposed N/A -Texture (Jenny-wound Skin Appearance) Scarring -Moisture (Jenny-wound Skin Appearance Maceration ) -Color (Jenny-wound Skin Appearance) Hemosiderin Staining -Temperature (Jenny-wound Skin No Abnormality Appearance) (Pt Warm) -Ulcer Cleansing Wound Cleanser -Foul Odor after Cleansing No -Anesthetic Used 4% Lidocaine Solution [Edema Assessment] -Left Calf (cm) 45.2 -Left Ankle (cm) 27.5 WC - Nurse 2 - General Ulcer CM Notes Start: 06/04/17 16:02 Freq: Status: Active Protocol: Activity Type Activity Date Activity User E-Sign Co-Sign Detail Recorded Client Recorded Date Recorded By Document 06/04/17 16:33 [id number] 06/04/17 16:34 06/04/17 16:33 Wound Center Nurse 2 [Procedure/Treatment] #3 Left Gutierrez -Time 16:33 -Correct Patient Yes -Correct Side, Site, Position Yes -Correct Procedure Yes -Procedure Performed Yes -Type of Procedure Debridement -Clinical Debridement Subcutaneous -Post Debridement Size (cm) - Length 3.8 -Post Debridement Size (cm) - Width 2.5 -Post Debridement Size (cm) - Depth 0.1 -Total Square Cm 9.50 -Wound/Ulcer Outcome Not Healed -Ulcer Cleansing Rinsed/ Irrigated with Saline -Foul Odor after Cleansing No -Bioengineered Tissue Yes -Type of bioengineered Tissue EPIFIX -Expiration Date 02/28/22 -Product Lot Number [id number] -Percent Used 100 -Saline Lot Number [id number] -Bleeding Controlled with Pressure -Treatment Response Procedure Tolerated Well [See Physician Procedure note for Specifics] Pain Scale: 0-10 Numeric [Pain] -Is Patient Pain Free? Yes Musculoskeletal: No Tenderness to Palpation of Joints or Extremities, Muscle Wasting, - - Compartments of the left leg remains soft and there is no crepitus Neurological: Sensory exam intact to light touch and pain Psych/Mental Status: Normal Affect, Appropriate Debridement Note Post-Debridement Measurements/Treatment WC - Nurse 2 - General Ulcer CM Notes Start: 06/04/17 16:02 Freq: Status: Active Protocol: Activity Type Activity Date Activity User E-Sign Co-Sign Detail Recorded Client Recorded Date Recorded By Document 06/04/17 16:33 [id number] 06/04/17 16:34 [email or web address] 06/04/17 16:33 Wound Center Nurse 2 #3 Left Gutierrez -Time 16:33 -Correct Patient Yes -Correct Side, Site, Position Yes -Correct Procedure Yes -Procedure Performed Yes -Type of Procedure Debridement -Clinical Debridement Subcutaneous -Post Debridement Size (cm) - Length 3.8 -Post Debridement Size (cm) - Width 2.5 -Post Debridement Size (cm) - Depth 0.1 -Total Square Cm 9.50 -Wound/Ulcer Outcome Not Healed -Ulcer Cleansing Rinsed/ Irrigated with Saline -Foul Odor after Cleansing No -Bioengineered Tissue Yes -Type of bioengineered Tissue EPIFIX -Expiration Date 02/28/22 -Product Lot Number [id number] -Percent Used 100 -Saline Lot Number [id number] -Bleeding Controlled with Pressure -Treatment Response Procedure Tolerated Well Pain Scale: 0-10 Numeric Is Patient Pain Free? Yes Wound debrided: Anterior leg Laterality: Left Type of Debridement: Excisional debridement Anesthesia Used: 4% Lidocaine Solution Depth: in the subcutaneous layer Percentage of wound debrided: 100 Instrument Used: 5mm curette Tissue Removed: fibrous, devitalized subcutaneous, biofilm, slough Severity: Fat Layer Exposed Amount of bleeding with debridement: Mild Bleeding Controlled with: Pressure Patient tolerated procedure well Assessment/Plan Active Problems Delayed wound healing (Chronic) Localized edema (Chronic) Venous insufficiency of left leg (Chronic) Chronic ulcer of left lower extremity with fat layer exposed (Chronic) Assessment: Chronic and recurrent ulcer to the left gutierrez. Ruled out - acute or chronic deep venous thrombosis left lower extremity. Venous insufficiency left lower extremity Plan: I reviewed and discussed the case with the patient today. The ulcer site was debrided subcutaneously as noted in the clinical panel. A dressing of [place] was applied. An additional compression dressing, 3M2L was applied. Compliance was reiterated today. A new prescription for CircAid compression wraps provided and the arrival in the mail is pending. She was encouraged to bring the devices and upon receipt so we can educate her on proper use. . To resume nutritional supplementation to optimize healing. To avoid idle standing and sitting to help reduce fluid collection in the lower extremities. Dr. Barnes suggested Lasix and management per Dr. Barnes will be encouraged. She was reassured no signs of infection noted today. To monitor. . There is no deep venous thrombosis noted in her recent venous Doppler. There is some venous reflux noted at some of the lower extremity sites. To follow-up with Dr. Bella. I called him to confirm his office site and availability and recommend a care plan for cath moving forward. He recommended improving compliance with compression dressings with 30-40 mmHg for the next 1-2 months. If delays in healing are noted he recommend following up in the clinical setting to see if additional intervention is appropriate. Teresa is amenable to this plan. Her CBC and CMP were reviewed. No leukocytosis is noted. Her albumin levels 3.6. To return to clinic in 1 week at the wound care center or call sooner if questions or concerns. I answered all of her questions today.
[2017-06-11 16:23] VITALS: BP 142/76; PULSE 63; RESP 16; TEMP 35.9
--- NOTE | 2017-06-11 17:29 | PCM.WC.PN ---
(1) Chronic ulcer of left lower extremity with fat layer exposed Status: Chronic Current Visit: Yes Code(s): L97.922 - Non-pressure chronic ulcer of unspecified part of left lower leg with fat layer exposed (2) Delayed wound healing Status: Chronic Current Visit: Yes Code(s): T14.8 - Other injury of unspecified body region (3) Localized edema Status: Chronic Current Visit: Yes Code(s): R60.0 - Localized edema (4) Venous insufficiency of left leg Status: Chronic Current Visit: Yes Code(s): I87.2 - Venous insufficiency (chronic) (peripheral) Type of Wound Date of Service: 06/14/17 Chief Complaint: Chronic ulcer to the left lower extremity History of Wound: This 61 year old patient returns to the wound healing center for follow up of her chronic ulcer to her left gutierrez that has returned recently. She has continued bilateral lower extremity edema. She had venous ablation procedure performed with . This [employer] compression wrap [employer] has called her and she was waiting for the device to arrive in the mail. She denies their arrival has happened and thinks it may be due to the fact she has not had her bill yet. She was encouraged to complete this process again today. She denies fever, chill, nausea, vomiting, calf pain, or shortness of breath, or wound redness or odor. Progress of Wound: Stable - Physical Exam Vital Signs Temp Pulse Resp BP 96.6 F L 63 16 142/76 H 06/11/17 16:23 06/11/17 16:23 06/11/17 16:23 06/11/17 16:23 General: Alert, Oriented x3, Cooperative Extremities: No cyanosis, Capillary Refill Less than 3 Seconds, No Calf Tenderness - Negative Italo and Castillo sign bilateral, Diminished Peripheral Pulses, Edema - Bilateral lower extremities Skin: Ulcer/ Wound - No purulence, no erythema, no maceration, no odor, no deep tissue exposed, no infection. The peripheral skin is atrophic. Wound Measurements and Assessment WC - Nurse 1 - General Ulcer Measurement Start: 06/04/17 16:02 Freq: Status: Active Protocol: Activity Type Activity Date Activity User E-Sign Co-Sign Detail Recorded Client Recorded Date Recorded By Document 06/11/17 16:23 MW [id number] 06/11/17 16:25 MW 06/11/17 16:23 Wound Center Nurse 1 [Ulcer Assessment] #3 Left Gutierrez -Combined with other wound No -Current Size (cm) - Length 3.6 -Current Size (cm) - Width 2.3 -Current Size (cm) - Depth 0.1 -Total Square Cm 8.28 -Date of Last Picture (Recall this 06/11/17 field) -Photo Taken Yes -Epithelialization Small 1-33% -Tunneling No -Undermining/Tunneling No -Circular Undermining No -Exudate Amt Medium (34-66%) -Exudate Type Serosanguineous -Wound Margin Flat & Intact -Granulation Amt Large (67-100%) -Granulation Quality Red -Slough/Fibrin Yes -Necrosis Amt Small (1-33%) -Necrotic Tissue Type Adherent Slough -Structure Exposed N/A -Texture (Jenny-wound Skin Appearance) Assessed Localized Edema Scarring -Moisture (Jenny-wound Skin Appearance Assessed ) Dry/Scaly -Color (Jenny-wound Skin Appearance) Assessed Hemosiderin Staining -Temperature (Jenny-wound Skin No Abnormality Appearance) (Pt Warm) -Tenderness on Palpation (Jenny-wound No Skin Appearance) -Ulcer Cleansing soap and water -Foul Odor after Cleansing No -Anesthetic Used 4% Lidocaine Solution [Edema Assessment] -Lower Limb Edema Present Yes -Left Calf (cm) 47.0 -Left Ankle (cm) 27.6 WC - Nurse 2 - General Ulcer CM Notes Start: 06/04/17 16:02 Freq: Status: Active Protocol: Activity Type Activity Date Activity User E-Sign Co-Sign Detail Recorded Client Recorded Date Recorded By Document 06/11/17 16:39 [id number] 06/11/17 16:40 06/11/17 16:39 Wound Center Nurse 2 [Procedure/Treatment] #3 Left Gutierrez -Time 16:39 -Correct Patient Yes -Correct Side, Site, Position Yes -Correct Procedure Yes -Procedure Performed Yes -Type of Procedure Debridement -Clinical Debridement Subcutaneous -Post Debridement Size (cm) - Length 3.6 -Post Debridement Size (cm) - Width 2.3 -Post Debridement Size (cm) - Depth 0.1 -Total Square Cm 8.28 -Wound/Ulcer Outcome Not Healed -Ulcer Cleansing Rinsed/ Irrigated with Saline -Foul Odor after Cleansing No -Bioengineered Tissue Yes -Type of bioengineered Tissue EPIFIX -Expiration Date 02/28/22 -Product Lot Number [id number] -Percent Used 100 -Saline Lot Number [id number] -Bleeding Controlled with Pressure -Treatment Response Procedure Tolerated Well [See Physician Procedure note for Specifics] Pain Scale: 0-10 Numeric [Pain] -Is Patient Pain Free? Yes Musculoskeletal: No Tenderness to Palpation of Joints or Extremities, Muscle Wasting, - - No crepitus on palpation Neurological: - - Lack of epicritic sensation light touch Psych/Mental Status: Normal Affect, Appropriate Debridement Note Post-Debridement Measurements/Treatment WC - Nurse 2 - General Ulcer CM Notes Start: 06/04/17 16:02 Freq: Status: Active Protocol: Activity Type Activity Date Activity User E-Sign Co-Sign Detail Recorded Client Recorded Date Recorded By Document 06/04/17 16:33 [id number] 06/04/17 16:34 Document 06/11/17 16:39 [id number] 06/11/17 16:40 06/04/17 06/11/17 16:33 16:39 Wound Center Nurse 2 #3 Left Gutierrez -Time 16:33 16:39 -Correct Patient Yes Yes -Correct Side, Site, Position Yes Yes -Correct Procedure Yes Yes -Procedure Performed Yes Yes -Type of Procedure Debridement Debridement -Clinical Debridement Subcutaneous Subcutaneous -Post Debridement Size (cm) - Length 3.8 3.6 -Post Debridement Size (cm) - Width 2.5 2.3 -Post Debridement Size (cm) - Depth 0.1 0.1 -Total Square Cm 9.50 8.28 -Wound/Ulcer Outcome Not Healed Not Healed -Ulcer Cleansing Rinsed/ Rinsed/ Irrigated with Irrigated with Saline Saline -Foul Odor after Cleansing No No -Bioengineered Tissue Yes Yes -Type of bioengineered Tissue EPIFIX EPIFIX -Expiration Date 02/28/22 02/28/22 -Product Lot Number [id number] -Percent Used 100 100 -Saline Lot Number [id number] -Bleeding Controlled with Pressure Pressure -Treatment Response Procedure Procedure Tolerated Well Tolerated Well Pain Scale: 0-10 Numeric Is Patient Pain Free? Yes Yes Wound debrided: anterior leg Laterality: Left Type of Debridement: Excisional debridement Anesthesia Used: 4% Lidocaine Solution Depth: in the subcutaneous layer Percentage of wound debrided: 100 Instrument Used: #15 blade Tissue Removed: fibrous, devitalized subcutaneous, biofilm, slough Severity: Fat Layer Exposed Amount of bleeding with debridement: Mild Bleeding Controlled with: Pressure Patient tolerated procedure well Assessment/Plan Active Problems Delayed wound healing (Chronic) Localized edema (Chronic) Venous insufficiency of left leg (Chronic) Chronic ulcer of left lower extremity with fat layer exposed (Chronic) Assessment: Chronic and recurrent ulcer to the left gutierrez. Ruled out - acute or chronic deep venous thrombosis left lower extremity. Venous insufficiency left lower extremity Plan: I reviewed and discussed the case with the patient today. The ulcer site was debrided subcutaneously as noted in the clinical panel. An advanced wound care product, epi fix, was applied according to standard protocol after verbal consent was obtained and saline irrigation was performed. She tolerated this well. This was secured in place with Steri-Strips and wound veil. An outer dressing was applied. She was advised to keep this clean and intact until follow-up visit next week. The purpose of the advanced product was discussed and she demonstrates understanding. An additional compression dressing, 3M2L was applied. Compliance was reiterated today. A new prescription for CircAid compression wraps provided and the arrival is pending. She was encouraged to bring the devices and upon receipt so we can educate her on proper use. . To resume nutritional supplementation to optimize healing. To avoid idle standing and sitting to help reduce fluid collection in the lower extremities. Dr. Barnes suggested Lasix and management per Dr. Barnes will be encouraged. She was reassured no signs of infection noted today. To monitor. . There is no deep venous thrombosis noted in her recent venous Doppler. There is some venous reflux noted at some of the lower extremity sites. To follow-up with Dr. Bella. He recommended improving compliance with compression dressings with 30-40 mmHg for the next 1-2 months. If delays in healing are noted he recommend following up in the clinical setting to see if additional intervention is appropriate. Teresa is amenable to this plan. Her CBC and CMP were reviewed. No leukocytosis is noted. Her albumin levels 3.6. To return to clinic in 1 week at the wound care center or call sooner if questions or concerns. I answered all of her questions today.
[2017-06-18 15:48] VITALS: BP 137/70; PULSE 65; RESP 16; TEMP 36.3
--- NOTE | 2017-06-18 16:28 | PCM.WC.PN ---
(1) Chronic ulcer of left lower extremity with fat layer exposed Status: Chronic Current Visit: Yes Code(s): L97.922 - Non-pressure chronic ulcer of unspecified part of left lower leg with fat layer exposed (2) Delayed wound healing Status: Chronic Current Visit: Yes Code(s): T14.8 - Other injury of unspecified body region (3) Localized edema Status: Chronic Current Visit: Yes Code(s): R60.0 - Localized edema (4) Venous insufficiency of left leg Status: Chronic Current Visit: Yes Code(s): I87.2 - Venous insufficiency (chronic) (peripheral) Type of Wound Date of Service: 06/18/17 Chief Complaint: Chronic ulcer to the left lower extremity History of Wound: This 61 year old patient returns to the wound healing center for follow up of her chronic ulcer to her left gutierrez that has returned recently. She has continued bilateral lower extremity edema. She had venous ablation procedure performed with . This [employer] compression wrap [email or web address] has called her and she was waiting for the device to arrive in the mail. She denies their arrival has happened and thinks it may be due to the fact she has not had her bill yet. She relates she did not do this yet this past week and says she has been a 'bad girl'. she was encouraged to complete this process again today. She denies fever, chill, nausea, vomiting, calf pain, or shortness of breath, or wound redness or odor. Progress of Wound: Improving - Physical Exam Vital Signs Temp Pulse Resp BP 97.3 F L 65 16 137/70 H 06/18/17 15:48 06/18/17 15:48 06/18/17 15:48 06/18/17 15:48 General: Alert, Oriented x3, Cooperative Extremities: No edema, Capillary Refill Less than 3 Seconds, No Calf Tenderness - Negative Italo and Castillo sign left lower extremity, Diminished Peripheral Pulses, Edema - Bilateral lower extremities moderate and continued, Tenderness - No tenderness with wound manipulation today noted Skin: Ulcer/ Wound - No purulence, no erythema, no streaking, no acute signs of infection. The distal aspect of the wound has a very thin layer of epithelialization and this is healing. The adjacent skin is atrophic. Wound Measurements and Assessment WC - Nurse 1 - General Ulcer Measurement Start: 06/04/17 16:02 Freq: Status: Active Protocol: Activity Type Activity Date Activity User E-Sign Co-Sign Detail Recorded Client Recorded Date Recorded By Document 06/18/17 15:48 MW [id number] 06/18/17 15:50 MW 06/18/17 15:48 Wound Center Nurse 1 [Ulcer Assessment] #3 Left Gutierrez -Combined with other wound No -Current Size (cm) - Length 2.7 -Current Size (cm) - Width 1.4 -Current Size (cm) - Depth 0.1 -Total Square Cm 3.78 -Photo Taken No -Epithelialization None Present -Tunneling No -Undermining/Tunneling No -Circular Undermining No -Exudate Amt Small (1-33%) -Exudate Type Serosanguineous -Wound Margin Distinct, Outline Attached -Granulation Amt Medium (34-66%) -Granulation Quality Red -Slough/Fibrin Yes -Necrosis Amt Small (1-33%) -Necrotic Tissue Type Adherent Slough -Structure Exposed N/A -Texture (Jenny-wound Skin Appearance) Assessed Localized Edema Scarring -Moisture (Jenny-wound Skin Appearance Assessed ) Dry/Scaly -Color (Jenny-wound Skin Appearance) Assessed Rubor -Temperature (Jenny-wound Skin No Abnormality Appearance) (Pt Warm) -Tenderness on Palpation (Jenny-wound No Skin Appearance) -Ulcer Cleansing soap and water -Foul Odor after Cleansing No -Anesthetic Used 4% Lidocaine Solution [Edema Assessment] -Lower Limb Edema Present Yes -Left Calf (cm) 44.7 -Left Ankle (cm) 26.6 WC - Nurse 2 - General Ulcer CM Notes Start: 06/04/17 16:02 Freq: Status: Active Protocol: Activity Type Activity Date Activity User E-Sign Co-Sign Detail Recorded Client Recorded Date Recorded By Document 06/18/17 16:11 JF [id number] 06/18/17 16:12 06/18/17 16:11 Wound Center Nurse 2 [Procedure/Treatment] #3 Left Gutierrez -Time 16:11 -Correct Patient Yes -Correct Side, Site, Position Yes -Correct Procedure Yes -Procedure Performed Yes -Type of Procedure Debridement -Clinical Debridement Subcutaneous -Post Debridement Size (cm) - Length 2.8 -Post Debridement Size (cm) - Width 1.4 -Post Debridement Size (cm) - Depth 0.1 -Total Square Cm 3.92 -Wound/Ulcer Outcome Not Healed -Ulcer Cleansing Rinsed/ Irrigated with Saline -Foul Odor after Cleansing No -Bioengineered Tissue Yes -Type of bioengineered Tissue EPIFIX -Expiration Date 03/31/22 -Product Lot Number [id number] -Percent Used 100 -Saline Lot Number [id number] -Bleeding Controlled with Pressure -Treatment Response Procedure Tolerated Well [See Physician Procedure note for Specifics] Pain Scale: 0-10 Numeric [Pain] -Is Patient Pain Free? Yes Musculoskeletal: No Tenderness to Palpation of Joints or Extremities, Muscle Wasting, - - Compartment lower extremity soft to touch Neurological: - - Lack of epicritic sensation light touch left lower extremity Psych/Mental Status: Normal Affect, Appropriate Debridement Note Post-Debridement Measurements/Treatment WC - Nurse 2 - General Ulcer CM Notes Start: 06/04/17 16:02 Freq: Status: Active Protocol: Activity Type Activity Date Activity User E-Sign Co-Sign Detail Recorded Client Recorded Date Recorded By Document 06/04/17 16:33 [id number] 06/04/17 16:34 Document 06/11/17 16:39 [id number] 06/11/17 16:40 Document 06/18/17 16:11 [id number] 06/18/17 16:12 06/04/17 06/11/17 06/18/17 16:33 16:39 16:11 Wound Center Nurse 2 #3 Left Gutierrez -Time 16:33 16:39 16:11 -Correct Patient Yes Yes Yes -Correct Side, Site, Position Yes Yes Yes -Correct Procedure Yes Yes Yes -Procedure Performed Yes Yes Yes -Type of Procedure Debridement Debridement Debridement -Clinical Debridement Subcutaneous Subcutaneous Subcutaneous -Post Debridement Size (cm) - Length 3.8 3.6 2.8 -Post Debridement Size (cm) - Width 2.5 2.3 1.4 -Post Debridement Size (cm) - Depth 0.1 0.1 0.1 -Total Square Cm 9.50 8.28 3.92 -Wound/Ulcer Outcome Not Healed Not Healed Not Healed -Ulcer Cleansing Rinsed/ Rinsed/ Rinsed/ Irrigated with Irrigated with Irrigated with Saline Saline Saline -Foul Odor after Cleansing No No No -Bioengineered Tissue Yes Yes Yes -Type of bioengineered Tissue EPIFIX EPIFIX EPIFIX -Expiration Date 02/28/22 02/28/22 03/31/22 -Product Lot Number [id number] -Percent Used 100 100 100 -Saline Lot Number [id number] -Bleeding Controlled with Pressure Pressure Pressure -Treatment Response Procedure Procedure Procedure Tolerated Well Tolerated Well Tolerated Well Pain Scale: 0-10 Numeric Is Patient Pain Free? Yes Yes Yes Wound debrided: leg Laterality: Left Type of Debridement: Excisional debridement Anesthesia Used: 4% Lidocaine Solution Depth: in the subcutaneous layer Percentage of wound debrided: 100 Instrument Used: #15 blade Tissue Removed: fibrous, devitalized subcutaneous tissue, biofilm, slough Severity: Fat Layer Exposed Amount of bleeding with debridement: Mild Bleeding Controlled with: Pressure Patient tolerated procedure well Assessment/Plan Active Problems Delayed wound healing (Chronic) Localized edema (Chronic) Venous insufficiency of left leg (Chronic) Chronic ulcer of left lower extremity with fat layer exposed (Chronic) Assessment: Chronic and recurrent ulcer to the left gutierrez. Ruled out - acute or chronic deep venous thrombosis left lower extremity. Venous insufficiency left lower extremity Plan: I reviewed and discussed the case with the patient today. The ulcer site was debrided subcutaneously as noted in the clinical panel. An advanced wound care product, epi fix, was applied according to standard protocol after verbal consent was obtained and saline irrigation was performed. She tolerated this well. This was secured in place with Steri-Strips and wound veil. An outer dressing was applied. She was advised to keep this clean and intact until follow-up visit next week. The purpose of the advanced product was discussed and she demonstrates understanding. An additional compression dressing, 3M2L was applied. Compliance was reiterated today. A previous prescription for CircAid compression wraps provided and the arrival is pending. She was encouraged to complete the ordering process and to bring the devices and upon receipt so we can educate her on proper use. . To resume nutritional supplementation to optimize healing. To avoid idle standing and sitting to help reduce fluid collection in the lower extremities. Dr. Barnes suggested Lasix and management per Dr. Barnes will be encouraged. She was reassured no signs of infection noted today. To monitor. . There is no deep venous thrombosis noted in her recent venous Doppler. There is some venous reflux noted at some of the lower extremity sites. To follow-up with Dr. Bella. He recommended improving compliance with compression dressings with 30-40 mmHg for the next 1-2 months. If delays in healing are noted he recommend following up in the clinical setting to see if additional intervention is appropriate. Teresa is amenable to this plan. Her CBC and CMP were reviewed. No leukocytosis is noted. Her albumin levels 3.6. To return to clinic in 1 week at the wound care center or call sooner if questions or concerns. I answered all of her questions today.
--- NOTE | 2017-06-18 16:33 | PN.PCM_ITS ---
(1) Chronic ulcer of left lower extremity with fat layer exposed Status: Chronic Current Visit: Yes Code(s): L97.922 - Non-pressure chronic ulcer of unspecified part of left lower leg with fat layer exposed (2) Delayed wound healing Status: Chronic Current Visit: Yes Code(s): T14.8 - Other injury of unspecified body region (3) Localized edema Status: Chronic Current Visit: Yes Code(s): R60.0 - Localized edema (4) Venous insufficiency of left leg Status: Chronic Current Visit: Yes Code(s): I87.2 - Venous insufficiency ( chronic) (peripheral) Type of Wound Date of Service: 06/18/17 Chief Complaint: Chronic ulcer to the left lower extremity History of Wound: This 61 year old patient returns to the wound healing center for follow up of her chronic ulcer to her left gutierrez that has returned recently. She has continued bilateral lower extremity edema. She had venous ablation procedure performed with . This [employer] compression wrap [employer] has called her and she was waiting for the device to arrive in the mail. She denies their arrival has happened and thinks it may be due to the fact she has not had her bill yet. She relates she did not do this yet this past week and says she has been a 'bad girl'. she was encouraged to complete this process again today. She denies fever, chill, nausea, vomiting, calf pain, or shortness of breath, or wound redness or odor. Progress of Wound: Improving - Physical Exam Vital Signs Temp Pulse Resp BP 97.3 F L 65 16 137/70 H 06/18/17 15:48 06/18/17 15:48 06/18/17 15:48 06/18/17 15:48 General: Alert, Oriented x3, Cooperative Extremities: No edema, Capillary Refill Less than 3 Seconds, No Calf Tenderness - Negative Italo and Castillo sign left lower extremity, Diminished Peripheral Pulses, Edema - Bilateral lower extremities moderate and continued, Tenderness - No tenderness with wound manipulation today noted Skin: Ulcer/ Wound - No purulence, no erythema, no streaking, no acute signs of infection. The distal aspect of the wound has a very thin layer of epithelialization and this is healing. The adjacent skin is atrophic. Wound Measurements and Assessment WC - Nurse 1 - General Ulcer Measurement Start: 06/04/17 16:02 Freq: Status: Active Protocol: Activity Type Activity Date Activity User E-Sign Co-Sign Detail Recorded Client Recorded Date Recorded By Document 06/18/17 15:48 MW [id number] 06/18/17 15:50 MW 06/18/17 15:48 Wound Center Nurse 1 [Ulcer Assessment] #3 Left Gutierrez -Combined with other wound No -Current Size (cm) - Length 2.7 -Current Size (cm) - Width 1.4 -Current Size (cm) - Depth 0.1 -Total Square Cm 3.78 -Photo Taken No -Epithelialization None Present -Tunneling No -Undermining/Tunneling No -Circular Undermining No -Exudate Amt Small (1-33%) -Exudate Type Serosanguineous -Wound Margin Distinct, Outline Attached -Granulation Amt Medium (34-66%) -Granulation Quality Red -Slough/Fibrin Yes -Necrosis Amt Small (1-33%) -Necrotic Tissue Type Adherent Slough -Structure Exposed N/A -Texture (Jenny-wound Skin Appearance) Assessed Localized Edema Scarring -Moisture (Jenny-wound Skin Appearance Assessed ) Dry/Scaly -Color (Jenny-wound Skin Appearance) Assessed Rubor -Temperature (Jenny-wound Skin No Abnormality Appearance) (Pt Warm) -Tenderness on Palpation (Jenny-wound No Skin Appearance) -Ulcer Cleansing soap and water -Foul Odor after Cleansing No -Anesthetic Used 4% Lidocaine Solution [Edema Assessment] -Lower Limb Edema Present Yes -Left Calf (cm) 44.7 -Left Ankle (cm) 26.6 WC - Nurse 2 - General Ulcer CM Notes Start: 06/04/17 16:02 Freq: Status: Active Protocol: Activity Type Activity Date Activity User E-Sign Co-Sign Detail Recorded Client Recorded Date Recorded By Document 06/18/17 16:11 JF [id number] 06/18/17 16:12 06/18/17 16:11 Wound Center Nurse 2 [Procedure/Treatment] #3 Left Gutierrez -Time 16:11 -Correct Patient Yes -Correct Side, Site, Position Yes -Correct Procedure Yes -Procedure Performed Yes -Type of Procedure Debridement -Clinical Debridement Subcutaneous -Post Debridement Size (cm) - Length 2.8 -Post Debridement Size (cm) - Width 1.4 -Post Debridement Size (cm) - Depth 0.1 -Total Square Cm 3.92 -Wound/Ulcer Outcome Not Healed -Ulcer Cleansing Rinsed/ Irrigated with Saline -Foul Odor after Cleansing No -Bioengineered Tissue Yes -Type of bioengineered Tissue EPIFIX -Expiration Date 03/31/22 -Product Lot Number [id number] -Percent Used 100 -Saline Lot Number [id number] -Bleeding Controlled with Pressure -Treatment Response Procedure Tolerated Well [See Physician Procedure note for Specifics] Pain Scale: 0-10 Numeric [Pain] -Is Patient Pain Free? Yes Musculoskeletal: No Tenderness to Palpation of Joints or Extremities, Muscle Wasting, - - Compartment lower extremity soft to touch Neurological: - - Lack of epicritic sensation light touch left lower extremity Psych/Mental Status: Normal Affect, Appropriate Debridement Note Post-Debridement Measurements/Treatment WC - Nurse 2 - General Ulcer CM Notes Start: 06/04/17 16:02 Freq: Status: Active Protocol: Activity Type Activity Date Activity User E-Sign Co-Sign Detail Recorded Client Recorded Date Recorded By Document 06/04/17 16:33 [id number] 06/04/17 16:34 Document 06/11/17 16:39 [id number] 06/11/17 16:40 Document 06/18/17 16:11 [id number] 06/18/17 16:12 06/04/17 06/11/17 06/18/17 16:33 16:39 16:11 Wound Center Nurse 2 #3 Left Gutierrez -Time 16:33 16:39 16:11 -Correct Patient Yes Yes Yes -Correct Side, Site, Position Yes Yes Yes -Correct Procedure Yes Yes Yes -Procedure Performed Yes Yes Yes -Type of Procedure Debridement Debridement Debridement -Clinical Debridement Subcutaneous Subcutaneous Subcutaneous -Post Debridement Size (cm) - Length 3.8 3.6 2.8 -Post Debridement Size (cm) - Width 2.5 2.3 1.4 -Post Debridement Size (cm) - Depth 0.1 0.1 0.1 -Total Square Cm 9.50 8.28 3.92 -Wound/Ulcer Outcome Not Healed Not Healed Not Healed -Ulcer Cleansing Rinsed/ Rinsed/ Rinsed/ Irrigated with Irrigated with Irrigated with Saline Saline Saline -Foul Odor after Cleansing No No No -Bioengineered Tissue Yes Yes Yes -Type of bioengineered Tissue EPIFIX EPIFIX EPIFIX -Expiration Date 02/28/22 02/28/22 03/31/22 -Product Lot Number [id number] -Percent Used 100 100 100 -Saline Lot Number [id number] -Bleeding Controlled with Pressure Pressure Pressure -Treatment Response Procedure Procedure Procedure Tolerated Well Tolerated Well Tolerated Well Pain Scale: 0-10 Numeric Is Patient Pain Free? Yes Yes Yes Wound debrided: leg Laterality: Left Type of Debridement: Excisional debridement Anesthesia Used: 4% Lidocaine Solution Depth: in the subcutaneous layer Percentage of wound debrided: 100 Instrument Used: #15 blade Tissue Removed: fibrous, devitalized subcutaneous tissue, biofilm, slough Severity: Fat Layer Exposed Amount of bleeding with debridement: Mild Bleeding Controlled with: Pressure Patient tolerated procedure well Assessment/Plan Active Problems Delayed wound healing (Chronic) Localized edema (Chronic) Venous insufficiency of left leg (Chronic) Chronic ulcer of left lower extremity with fat layer exposed (Chronic) Assessment: Chronic and recurrent ulcer to the left gutierrez. Ruled out - acute or chronic deep venous thrombosis left lower extremity. Venous insufficiency left lower extremity Plan: I reviewed and discussed the case with the patient today. The ulcer site was debrided subcutaneously as noted in the clinical panel. An advanced wound care product, epi fix, was applied according to standard protocol after verbal consent was obtained and saline irrigation was performed. She tolerated this well. This was secured in place with Steri-Strips and wound veil. An outer dressing was applied. She was advised to keep this clean and intact until follow-up visit next week. The purpose of the advanced product was discussed and she demonstrates understanding. An additional compression dressing, 3M2L was applied. Compliance was reiterated today. A previous prescription for CircAid compression wraps provided and the arrival is pending. She was encouraged to complete the ordering process and to bring the devices and upon receipt so we can educate her on proper use. . To resume nutritional supplementation to optimize healing. To avoid idle standing and sitting to help reduce fluid collection in the lower extremities. Dr. Barnes suggested Lasix and management per Dr. Barnes will be encouraged. She was reassured no signs of infection noted today. To monitor. . There is no deep venous thrombosis noted in her recent venous Doppler. There is some venous reflux noted at some of the lower extremity sites. To follow-up with Dr. Bella. He recommended improving compliance with compression dressings with 30-40 mmHg for the next 1-2 months. If delays in healing are noted he recommend following up in the clinical setting to see if additional intervention is appropriate. Teresa is amenable to this plan. Her CBC and CMP were reviewed. No leukocytosis is noted. Her albumin levels 3.6. To return to clinic in 1 week at the wound care center or call sooner if questions or concerns. I answered all of her questions today.
[2017-06-25 16:14] VITALS: BP 153/78; PULSE 70; RESP 18; TEMP 36.6
--- NOTE | 2017-06-25 17:00 | PN.PCM_ITS ---
(1) Chronic ulcer of left lower extremity with fat layer exposed Status: Chronic Current Visit: Yes Code(s): L97.922 - Non-pressure chronic ulcer of unspecified part of left lower leg with fat layer exposed (2) Delayed wound healing Status: Chronic Current Visit: Yes Code(s): T14.8 - Other injury of unspecified body region (3) Localized edema Status: Chronic Current Visit: Yes Code(s): R60.0 - Localized edema (4) Venous insufficiency of left leg Status: Chronic Current Visit: Yes Code(s): I87.2 - Venous insufficiency ( chronic) (peripheral) Type of Wound Date of Service: 06/25/17 Chief Complaint: Chronic ulcer to the left lower extremity History of Wound: This 61 year old patient returns to the wound healing center for follow up of her chronic ulcer to her left gutierrez that has returned recently. She has continued bilateral lower extremity edema. She had venous ablation procedure performed with . She did not obtain the circaid comkpression wrap again. She denies fever, chill, nausea, vomiting, calf pain, or shortness of breath, or wound redness or odor. Progress of Wound: Improving - Physical Exam Vital Signs Temp Pulse Resp BP 97.8 F 70 18 153/78 H 06/25/17 16:14 06/25/17 16:14 06/25/17 16:14 06/25/17 16:14 General: Alert, Oriented x3, Cooperative Extremities: No cyanosis, Capillary Refill Less than 3 Seconds, No Calf Tenderness - Negative Italo and Castillo left, Diminished Peripheral Pulses, Edema Skin: Ulcer/ Wound - No maceration, no purulence, no infection, no odor Wound Measurements and Assessment WC - Nurse 1 - General Ulcer Measurement Start: 06/04/17 16:02 Freq: Status: Active Protocol: Activity Type Activity Date Activity User E-Sign Co-Sign Detail Recorded Client Recorded Date Recorded By Document 06/25/17 16:14 DL [id number] 06/25/17 16:20 DL 06/25/17 16:14 Wound Center Nurse 1 [Ulcer Assessment] #3 Left Gutierrez -Current Size (cm) - Length 2.5 -Current Size (cm) - Width 1.6 -Current Size (cm) - Depth 0.1 -Total Square Cm 4.00 -Photo Taken No -Exudate Amt Small (1-33%) -Exudate Type Serosanguineous -Wound Margin Distinct, Outline Attached -Granulation Amt Medium (34-66%) -Granulation Quality Red -Necrosis Amt Medium (34-66%) -Necrotic Tissue Type Adherent Slough -Structure Exposed N/A -Texture (Jenny-wound Skin Appearance) Scarring -Moisture (Jenny-wound Skin Appearance No Abnormality ) -Color (Jenny-wound Skin Appearance) Hemosiderin Staining Rubor -Temperature (Jenny-wound Skin No Abnormality Appearance) (Pt Warm) -Ulcer Cleansing Wound Cleanser -Foul Odor after Cleansing No -Anesthetic Used 4% Lidocaine Solution [Edema Assessment] -Left Calf (cm) 42.8 -Left Ankle (cm) 25.3 WC - Nurse 2 - General Ulcer CM Notes Start: 06/04/17 16:02 Freq: Status: Active Protocol: Activity Type Activity Date Activity User E-Sign Co-Sign Detail Recorded Client Recorded Date Recorded By Document 06/25/17 16:48 [id number] 06/25/17 16:51 06/25/17 16:48 Wound Center Nurse 2 [Procedure/Treatment] #3 Left Gutierrez -Time 16:49 -Correct Patient Yes -Correct Side, Site, Position Yes -Correct Procedure Yes -Procedure Performed Yes -Type of Procedure Debridement -Clinical Debridement Subcutaneous -Post Debridement Size (cm) - Length 2.6 -Post Debridement Size (cm) - Width 1.7 -Post Debridement Size (cm) - Depth 0.1 -Total Square Cm 4.42 -Wound/Ulcer Outcome Not Healed -Ulcer Cleansing Rinsed/ Irrigated with Saline -Foul Odor after Cleansing No -Bioengineered Tissue Yes -Type of bioengineered Tissue EPIFIX -Expiration Date 03/31/22 -Product Lot Number [id number] -Percent Used 100 -Saline Lot Number [id number] -Topical Lidocaine (%) 5 -Bleeding Controlled with Pressure -Treatment Response Procedure Tolerated Well [See Physician Procedure note for Specifics] Pain Scale: 0-10 Numeric [Pain] -Is Patient Pain Free? Yes Musculoskeletal: No Tenderness to Palpation of Joints or Extremities, Muscle Wasting Neurological: - - Lack of epicritic sensation light touch periwound left leg Psych/Mental Status: Normal Affect, Appropriate Debridement Note Post-Debridement Measurements/Treatment WC - Nurse 2 - General Ulcer CM Notes Start: 06/04/17 16:02 Freq: Status: Active Protocol: Activity Type Activity Date Activity User E-Sign Co-Sign Detail Recorded Client Recorded Date Recorded By Document 06/04/17 16:33 JF [id number] 06/04/17 16:34 JF Document 06/11/17 16:39 JF [id number] 06/11/17 16:40 JF Document 06/18/17 16:11 JF [id number] 06/18/17 16:12 JF Document 06/25/17 16:48 [email or web address] [id number] 06/25/17 16:51 TM 06/04/17 06/11/17 06/18/17 16:33 16:39 16:11 Wound Center Nurse 2 #3 Left Gutierrez -Time 16:33 16:39 16:11 -Correct Patient Yes Yes Yes -Correct Side, Site, Position Yes Yes Yes -Correct Procedure Yes Yes Yes -Procedure Performed Yes Yes Yes -Type of Procedure Debridement Debridement Debridement -Clinical Debridement Subcutaneous Subcutaneous Subcutaneous -Post Debridement Size (cm) - Length 3.8 3.6 2.8 -Post Debridement Size (cm) - Width 2.5 2.3 1.4 -Post Debridement Size (cm) - Depth 0.1 0.1 0.1 -Total Square Cm 9.50 8.28 3.92 -Wound/Ulcer Outcome Not Healed Not Healed Not Healed -Ulcer Cleansing Rinsed/ Rinsed/ Rinsed/ Irrigated with Irrigated with Irrigated with Saline Saline Saline -Foul Odor after Cleansing No No No -Bioengineered Tissue Yes Yes Yes -Type of bioengineered Tissue EPIFIX EPIFIX EPIFIX -Expiration Date 02/28/22 02/28/22 03/31/22 -Product Lot Number [id number] -Percent Used 100 100 100 -Saline Lot Number [id number] -Topical Lidocaine (%) -Bleeding Controlled with Pressure Pressure Pressure -Treatment Response Procedure Procedure Procedure Tolerated Well Tolerated Well Tolerated Well Pain Scale: 0-10 Numeric Is Patient Pain Free? Yes Yes Yes 06/25/17 16:48 Wound Center Nurse 2 #3 Left Gutierrez -Time 16:49 -Correct Patient Yes -Correct Side, Site, Position Yes -Correct Procedure Yes -Procedure Performed Yes -Type of Procedure Debridement -Clinical Debridement Subcutaneous -Post Debridement Size (cm) - Length 2.6 -Post Debridement Size (cm) - Width 1.7 -Post Debridement Size (cm) - Depth 0.1 -Total Square Cm 4.42 -Wound/Ulcer Outcome Not Healed -Ulcer Cleansing Rinsed/ Irrigated with Saline -Foul Odor after Cleansing No -Bioengineered Tissue Yes -Type of bioengineered Tissue EPIFIX -Expiration Date 03/31/22 -Product Lot Number [id number] -Percent Used 100 -Saline Lot Number [id number] -Topical Lidocaine (%) 5 -Bleeding Controlled with Pressure -Treatment Response Procedure Tolerated Well Pain Scale: 0-10 Numeric Is Patient Pain Free? Yes Wound debrided: leg Laterality: Left Wound Grade/Stage: Type of Debridement: Excisional debridement Anesthesia Used: 4% Lidocaine Solution Depth: in the subcutaneous layer Percentage of wound debrided: 100 Instrument Used: #15 blade, 3-12 blade Tissue Removed: fibrous, devitalized subcutaneous, biofilm, slough Severity: Fat Layer Exposed Amount of bleeding with debridement: Mild Bleeding Controlled with: Pressure Patient tolerated procedure well Assessment/Plan Active Problems Delayed wound healing (Chronic) Localized edema (Chronic) Venous insufficiency of left leg (Chronic) Chronic ulcer of left lower extremity with fat layer exposed (Chronic) Assessment: Chronic and recurrent ulcer to the left gutierrez. Venous insufficiency left lower extremity. non compliance. delayed healing Plan: I reviewed and discussed the case with the patient today. The ulcer site was debrided subcutaneously as noted in the clinical panel. An advanced wound care product, epi fix, was applied according to standard protocol after verbal consent was obtained and saline irrigation was performed. She tolerated this well. This was secured in place with Steri-Strips and wound veil. An outer dressing was applied. She was advised to keep this clean and intact until follow-up visit next week. The purpose of the advanced product was discussed and she demonstrates understanding. An additional compression dressing, 3M2L was applied. Compliance was reiterated today. A previous prescription for CircAid compression wraps provided and the arrival is pending. She was encouraged to complete the ordering process and to bring the devices and upon receipt so we can educate her on proper use. . To resume nutritional supplementation to optimize healing. To avoid idle standing and sitting to help reduce fluid collection in the lower extremities. Dr. Barnes suggested Lasix and management per Dr. Barnes will be encouraged. She was reassured no signs of infection noted today. To monitor. . There is no deep venous thrombosis noted in her recent venous Doppler. There is some venous reflux noted at some of the lower extremity sites. To follow-up with Dr. Bella. He recommended improving compliance with compression dressings with 30-40 mmHg for the next 1-2 months. If delays in healing are noted he recommend following up in the clinical setting to see if additional intervention is appropriate. Teresa is amenable to this plan. Her CBC and CMP were reviewed. No leukocytosis is noted. Her albumin levels 3.6. To return to clinic in 1 week at the wound care center or call sooner if questions or concerns. I answered all of her questions today.
== END 2017-06-28 23:59 ==
LOC: WC 16:00
PROVIDERS: Family Provider Internal Medicine; PCP Internal Medicine; Visit Provider Podiatrist
DX: I87.2 Venous insufficiency (chronic) (peripheral) (principal); L97.822 Non-pressure chronic ulcer of other part of left lower leg with fat layer exposed; R60.0 Localized edema; R09.89 Other specified symptoms and signs involving the circulatory and respiratory systems; Z91.19 Patient's noncompliance with other medical treatment and regimen
CPT/HCPCS: 15271; 29581; Q4131

== ENCOUNTER 2017-07-23 16:00 | Outpatient (RCR) | payer MEDICAID, SELFPAY ==
[2017-06-29 00:28] VITALS: BP 140/76; PULSE 70; RESP 18; TEMP 36.6
[2017-07-02 15:58] VITALS: BP 127/70; PULSE 60; RESP 20; TEMP 36.1
--- NOTE | 2017-07-02 22:29 | PN.PCM_ITS ---
(1) Chronic ulcer of left lower extremity with fat layer exposed Status: Chronic Current Visit: Yes Code(s): L97.922 - Non-pressure chronic ulcer of unspecified part of left lower leg with fat layer exposed (2) Delayed wound healing Status: Chronic Current Visit: Yes Code(s): T14.8 - Other injury of unspecified body region (3) Venous insufficiency of left leg Status: Chronic Current Visit: Yes Code(s): I87.2 - Venous insufficiency ( chronic) (peripheral) Type of Wound Date of Service: 07/04/17 Chief Complaint: Chronic ulcer to the left lower extremity History of Wound: This 61 year old patient returns to the wound healing center for follow up of her chronic ulcer to her left gutierrez that has returned recently. She has continued bilateral lower extremity edema. She had venous ablation procedure performed with . She did not obtain the circaid comkpression wrap again. She denies fever, chill, nausea, vomiting, calf pain, or shortness of breath, or wound redness or odor. Progress of Wound: Improving - Physical Exam Vital Signs Temp Pulse Resp BP 97.0 F L 60 20 H 127/70 H 07/02/17 15:58 07/02/17 15:58 07/02/17 15:58 07/02/17 15:58 General: Alert, Oriented x3, Cooperative Extremities: No cyanosis, Capillary Refill Less than 3 Seconds, No Calf Tenderness, Diminished Peripheral Pulses, Edema Skin: Ulcer/ Wound - no purulence, no erythema, no streaking, no infection noted. The wound is stellate shaped and with partial epithelialization noted. Wound Measurements and Assessment WC - Nurse 1 - General Ulcer Measurement Start: 07/02/17 15:57 Freq: Status: Active Protocol: Activity Type Activity Date Activity User E-Sign Co-Sign Detail Recorded Client Recorded Date Recorded By Document 07/02/17 15:58 [email or web address] [id number] 07/02/17 16:09 CECILE 07/02/17 15:58 Wound Center Nurse 1 [Ulcer Assessment] #3 Left Gutierrez -Combined with other wound No -Current Size (cm) - Length 2.5 -Current Size (cm) - Width 1.5 -Current Size (cm) - Depth 0.1 -Total Square Cm 3.75 -Photo Taken No -Epithelialization Small 1-33% -Tunneling No -Undermining/Tunneling No -Circular Undermining No -Classification - Thickness Full Thickness without Exposed Support Structure -Exudate Amt Medium (34-66%) -Exudate Type Serosanguineous -Wound Margin Distinct, Outline Attached -Granulation Amt Small (1-33%) -Granulation Quality Red -Slough/Fibrin Yes -Necrosis Amt None Present (0 %) -Necrotic Tissue Type Adherent Slough -Structure Exposed N/A -Moisture (Jenny-wound Skin Appearance No Abnormality ) -Color (Jenny-wound Skin Appearance) Hemosiderin Staining -Temperature (Jenny-wound Skin No Abnormality Appearance) (Pt Warm) -Tenderness on Palpation (Jenny-wound No Skin Appearance) -Ulcer Cleansing Rinsed/ Irrigated with Saline -Foul Odor after Cleansing No -Anesthetic Used 4% Lidocaine Solution [Edema Assessment] -Lower Limb Edema Present Yes -Left Calf (cm) 50.0 -Left Ankle (cm) 27.7 WC - Nurse 2 - General Ulcer CM Notes Start: 07/02/17 15:57 Freq: Status: Active Protocol: Activity Type Activity Date Activity User E-Sign Co-Sign Detail Recorded Client Recorded Date Recorded By Document 07/02/17 16:29 [id number] 07/02/17 16:31 07/02/17 16:29 Wound Center Nurse 2 [Procedure/Treatment] #3 Left Gutierrez -Time 16:30 -Correct Patient Yes -Correct Side, Site, Position Yes -Correct Procedure Yes -Procedure Performed Yes -Type of Procedure Debridement -Clinical Debridement Subcutaneous -Post Debridement Size (cm) - Length 2.5 -Post Debridement Size (cm) - Width 1.6 -Post Debridement Size (cm) - Depth 0.1 -Total Square Cm 4.00 -Wound/Ulcer Outcome Not Healed -Ulcer Cleansing Rinsed/ Irrigated with Saline -Foul Odor after Cleansing No -Bioengineered Tissue Yes -Type of bioengineered Tissue EPIFIX -Expiration Date 03/31/22 -Product Lot Number [id number] -Percent Used 100 -Saline Lot Number [id number] -Bleeding Controlled with Pressure -Treatment Response Procedure Tolerated Well [See Physician Procedure note for Specifics] Pain Scale: 0-10 Numeric [Pain] -Is Patient Pain Free? Yes Musculoskeletal: No Tenderness to Palpation of Joints or Extremities, Muscle Wasting, - - negative tonya and palencia signs bilateral Neurological: - - lack of sensation with ulcer manipulation Psych/Mental Status: Normal Affect, Appropriate Debridement Note Post-Debridement Measurements/Treatment WC - Nurse 2 - General Ulcer CM Notes Start: 07/02/17 15:57 Freq: Status: Active Protocol: Activity Type Activity Date Activity User E-Sign Co-Sign Detail Recorded Client Recorded Date Recorded By Document 07/02/17 16:29 [id number] 07/02/17 16:31 07/02/17 16:29 Wound Center Nurse 2 #3 Left Gutierrez -Time 16:30 -Correct Patient Yes -Correct Side, Site, Position Yes -Correct Procedure Yes -Procedure Performed Yes -Type of Procedure Debridement -Clinical Debridement Subcutaneous -Post Debridement Size (cm) - Length 2.5 -Post Debridement Size (cm) - Width 1.6 -Post Debridement Size (cm) - Depth 0.1 -Total Square Cm 4.00 -Wound/Ulcer Outcome Not Healed -Ulcer Cleansing Rinsed/ Irrigated with Saline -Foul Odor after Cleansing No -Bioengineered Tissue Yes -Type of bioengineered Tissue EPIFIX -Expiration Date 03/31/22 -Product Lot Number [id number] -Percent Used 100 -Saline Lot Number [id number] -Bleeding Controlled with Pressure -Treatment Response Procedure Tolerated Well Pain Scale: 0-10 Numeric Is Patient Pain Free? Yes Wound debrided: leg Laterality: Left Type of Debridement: Excisional debridement Anesthesia Used: 4% Lidocaine Solution Depth: in the subcutaneous layer Percentage of wound debrided: 100 Instrument Used: #15 blade Tissue Removed: fibrous, devitalized subcutaneous, biofilm, slough Severity: Fat Layer Exposed Amount of bleeding with debridement: Mild Bleeding Controlled with: Pressure Patient tolerated procedure well Assessment/Plan Active Problems Delayed wound healing (Chronic) Venous insufficiency of left leg (Chronic) Chronic ulcer of left lower extremity with fat layer exposed (Chronic) Assessment: Chronic and recurrent ulcer to the left gutierrez. Venous insufficiency left lower extremity. non compliance. delayed healing Plan: I reviewed and discussed the case with the patient today. The ulcer site was debrided subcutaneously as noted in the clinical panel. An advanced wound care product, epi fix, was applied according to standard protocol after verbal consent was obtained and saline irrigation was performed. She tolerated this well. This was secured in place with Steri-Strips and wound veil. An outer dressing was applied. She was advised to keep this clean and intact until follow-up visit next week. The purpose of the advanced product was discussed and she demonstrates understanding. An additional compression dressing, 3M2L was applied. Compliance was reiterated today. A previous prescription for CircAid compression wraps provided and the arrival is pending. She was encouraged to complete the ordering process and to bring the devices and upon receipt so we can educate her on proper use. . To resume nutritional supplementation to optimize healing. To avoid idle standing and sitting to help reduce fluid collection in the lower extremities. Dr. Barnes suggested Lasix and management per Dr. Barnes will be encouraged. She was reassured no signs of infection noted today. To monitor. . There is no deep venous thrombosis noted in her recent venous Doppler. There is some venous reflux noted at some of the lower extremity sites. To follow-up with Dr. Bella. He recommended improving compliance with compression dressings with 30-40 mmHg for the next 1-2 months. If delays in healing are noted he recommend following up in the clinical setting to see if additional intervention is appropriate. Teresa is amenable to this plan. Her CBC and CMP were reviewed. No leukocytosis is noted. Her albumin levels 3.6. To return to clinic in 1 week at the wound care center or call sooner if questions or concerns. I answered all of her questions today.
[2017-07-09 16:37] VITALS: BP 139/76; PULSE 64; RESP 16; TEMP 36.5
--- NOTE | 2017-07-09 17:30 | PCM.WC.PN ---
(1) Chronic ulcer of left lower extremity with fat layer exposed Status: Chronic Code(s): L97.922 - Non-pressure chronic ulcer of unspecified part of left lower leg with fat layer exposed (2) Delayed wound healing Status: Chronic Code(s): T14.8 - Other injury of unspecified body region (3) Venous insufficiency of left leg Status: Chronic Code(s): I87.2 - Venous insufficiency (chronic) (peripheral) Type of Wound Date of Service: 07/09/17 Chief Complaint: Chronic ulcer to the left lower extremity History of Wound: This 61 year old patient returns to the wound healing center for follow up of her chronic ulcer to her left gutierrez that has returned recently. She has continued bilateral lower extremity edema. She had venous ablation procedure performed with . She did not obtain the circaid comkpression wrap again. She denies fever, chill, nausea, vomiting, calf pain, or shortness of breath, or wound redness or odor. She is not able to afford her CircAid wraps and reports she is in a poor financial situation at this. Progress of Wound: Stable - Physical Exam Vital Signs Temp Pulse Resp BP 97.7 F L 64 16 139/76 H 07/09/17 16:37 07/09/17 16:37 07/09/17 16:37 07/09/17 16:37 General: Alert, Oriented x3, Cooperative Extremities: No cyanosis, Capillary Refill Less than 3 Seconds, No Calf Tenderness - Negative Italo and Castillo left, Peripheral Pulses Normal - Dorsalis pedis left Skin: Ulcer/ Wound - No purulence, no erythema, streaking, no odor, no acute infection left lower extremity. There is no deep exposed tissue. The peripheral skin is atrophic and without hair left lower extremity., - - the wound bed is granular with some peripheral epithelialization noted Wound Measurements and Assessment WC - Nurse 1 - General Ulcer Measurement Start: 07/02/17 15:57 Freq: Status: Active Protocol: Activity Type Activity Date Activity User E-Sign Co-Sign Detail Recorded Client Recorded Date Recorded By Document 07/09/17 16:37 DL [id number] 07/09/17 16:41 DL 07/09/17 16:37 Wound Center Nurse 1 [Ulcer Assessment] #3 Left Gutierrez -Current Size (cm) - Length 2.6 -Current Size (cm) - Width 2.1 -Current Size (cm) - Depth 0.1 -Total Square Cm 5.46 -Photo Taken No -Exudate Amt Small (1-33%) -Exudate Type Serosanguineous -Wound Margin Distinct, Outline Attached -Granulation Quality Hyper- granulation -Necrosis Amt Small (1-33%) -Necrotic Tissue Type Adherent Slough -Structure Exposed N/A -Texture (Jenny-wound Skin Appearance) Scarring -Moisture (Jenny-wound Skin Appearance No Abnormality ) -Color (Jenny-wound Skin Appearance) Hemosiderin Staining -Temperature (Jenny-wound Skin No Abnormality Appearance) (Pt Warm) -Ulcer Cleansing Wound Cleanser -Foul Odor after Cleansing No -Anesthetic Used 4% Lidocaine Solution [Edema Assessment] -Left Calf (cm) 46.5 -Left Ankle (cm) 27.3 WC - Nurse 2 - General Ulcer CM Notes Start: 07/02/17 15:57 Freq: Status: Active Protocol: Activity Type Activity Date Activity User E-Sign Co-Sign Detail Recorded Client Recorded Date Recorded By Document 07/09/17 17:07 [id number] 07/09/17 17:09 07/09/17 17:07 Wound Center Nurse 2 [Procedure/Treatment] #3 Left Gutierrez -Time 17:07 -Correct Patient Yes -Correct Side, Site, Position Yes -Correct Procedure Yes -Procedure Performed Yes -Type of Procedure Debridement -Clinical Debridement Subcutaneous -Post Debridement Size (cm) - Length 2.7 -Post Debridement Size (cm) - Width 2.2 -Post Debridement Size (cm) - Depth 0.1 -Total Square Cm 5.94 -Wound/Ulcer Outcome Not Healed -Ulcer Cleansing Rinsed/ Irrigated with Saline -Foul Odor after Cleansing No -Bioengineered Tissue Yes -Type of bioengineered Tissue EPIFIX -Expiration Date 03/31/22 -Product Lot Number [id number] -Percent Used 100 -Saline Lot Number [id number] -Topical Lidocaine (%) 4 -Bleeding Controlled with Pressure -Treatment Response Procedure Tolerated Well [See Physician Procedure note for Specifics] Pain Scale: 0-10 Numeric [Pain] -Is Patient Pain Free? Yes Musculoskeletal: No Tenderness to Palpation of Joints or Extremities, Muscle Wasting, - - Decreased tenderness at wound palpation Neurological: - - Lack of epicritic sensation at wound site left Psych/Mental Status: Normal Affect, Appropriate Debridement Note Post-Debridement Measurements/Treatment WC - Nurse 2 - General Ulcer CM Notes Start: 07/02/17 15:57 Freq: Status: Active Protocol: Activity Type Activity Date Activity User E-Sign Co-Sign Detail Recorded Client Recorded Date Recorded By Document 07/02/17 16:29 [id number] 07/02/17 16:31 Document 07/09/17 17:07 TM [id number] 07/09/17 17:09 07/02/17 07/09/17 16:29 17:07 Wound Center Nurse 2 #3 Left Gutierrez -Time 16:30 17:07 -Correct Patient Yes Yes -Correct Side, Site, Position Yes Yes -Correct Procedure Yes Yes -Procedure Performed Yes Yes -Type of Procedure Debridement Debridement -Clinical Debridement Subcutaneous Subcutaneous -Post Debridement Size (cm) - Length 2.5 2.7 -Post Debridement Size (cm) - Width 1.6 2.2 -Post Debridement Size (cm) - Depth 0.1 0.1 -Total Square Cm 4.00 5.94 -Wound/Ulcer Outcome Not Healed Not Healed -Ulcer Cleansing Rinsed/ Rinsed/ Irrigated with Irrigated with Saline Saline -Foul Odor after Cleansing No No -Bioengineered Tissue Yes Yes -Type of bioengineered Tissue EPIFIX EPIFIX -Expiration Date 03/31/22 03/31/22 -Product Lot Number [id number] -Percent Used 100 100 -Saline Lot Number [id number] -Topical Lidocaine (%) 4 -Bleeding Controlled with Pressure Pressure -Treatment Response Procedure Procedure Tolerated Well Tolerated Well Pain Scale: 0-10 Numeric Is Patient Pain Free? Yes Yes Wound debrided: leg Laterality: Left Type of Debridement: Excisional debridement Anesthesia Used: 4% Lidocaine Solution Depth: in the subcutaneous layer Percentage of wound debrided: 100 Instrument Used: 5mm curette Tissue Removed: fibrous, devitalized subcutaneous, biofilm, slough Severity: Fat Layer Exposed Amount of bleeding with debridement: Mild Bleeding Controlled with: Pressure Patient tolerated procedure well Assessment/Plan Assessment: Chronic and recurrent ulcer to the left gutierrez. Venous insufficiency left lower extremity. non compliance. delayed healing Plan: I reviewed and discussed the case with the patient today. The ulcer site was debrided subcutaneously as noted in the clinical panel. An advanced wound care product, epi fix, was applied according to standard protocol after verbal consent was obtained and saline irrigation was performed. She tolerated this well. This was secured in place with Steri-Strips and wound veil. An outer dressing was applied. She was advised to keep this clean and intact until follow-up visit next week. The purpose of the advanced product was discussed and she demonstrates understanding. An additional compression dressing, 3M2L was applied. Compliance was reiterated today. A previous prescription for CircAid compression wraps provided. She is not able to complete this at this time due to lack of financial support. She reports she is having a current hardship. I offered her a genesis opportunity and she reports she is willing to help out with the needed paperwork to see if she qualifies. . To resume nutritional supplementation to optimize healing. To avoid idle standing and sitting to help reduce fluid collection in the lower extremities. Dr. Barnes suggested Lasix and management per Dr. Barnes will be encouraged. She was reassured no signs of infection noted today. To monitor. . There is no deep venous thrombosis noted in her recent venous Doppler. There is some venous reflux noted at some of the lower extremity sites. To follow-up with Dr. Bella. He recommended improving compliance with compression dressings with 30-40 mmHg for the next 1-2 months. If delays in healing are noted he recommend following up in the clinical setting to see if additional intervention is appropriate. Teresa is amenable to this plan. Her CBC and CMP were reviewed. No leukocytosis is noted. Her albumin levels 3.6. To return to clinic in 1 week at the wound care center or call sooner if questions or concerns. I answered all of her questions today.
[2017-07-16 15:54] VITALS: BP 131/69; PULSE 72; RESP 16; TEMP 36.2
--- NOTE | 2017-07-16 16:33 | PN.PCM_ITS ---
(1) Chronic ulcer of left lower extremity with fat layer exposed Status: Chronic Current Visit: Yes Code(s): L97.922 - Non-pressure chronic ulcer of unspecified part of left lower leg with fat layer exposed (2) Delayed wound healing Status: Chronic Current Visit: Yes Code(s): T14.8 - Other injury of unspecified body region (3) Venous insufficiency of left leg Status: Chronic Current Visit: Yes Code(s): I87.2 - Venous insufficiency ( chronic) (peripheral) (4) Non-compliance Status: Chronic Current Visit: Yes Code(s): Z91.19 - Patient's noncompliance with other medical treatment and regimen Type of Wound Date of Service: 07/17/17 Chief Complaint: Chronic ulcer to the left lower extremity History of Wound: This 61 year old patient returns to the wound healing center for follow up of her chronic ulcer to her left gutierrez that has returned. She has continued bilateral lower extremity edema this is decreased the past week with her multilayer compression dressing. She had venous ablation procedure performed with . She did not complete the paperwork to apply for CircAid compression dressing genesis opportunity. She denies fever, chill, nausea, vomiting, calf pain, or shortness of breath, or wound redness or odor. She relates she is in a poor financial situation at this time and will try to remember to complete the paperwork as advised. Progress of Wound: Stable - Physical Exam Vital Signs Temp Pulse Resp BP 97.1 F L 72 16 131/69 H 07/16/17 15:54 07/16/17 15:54 07/16/17 15:54 07/16/17 15:54 General: Alert, Oriented x3, Cooperative Extremities: No cyanosis, Capillary Refill Less than 3 Seconds, No Calf Tenderness - Negative Italo and Castillo left, Diminished Peripheral Pulses, Edema - Decreased left lower extremity Skin: Ulcer/ Wound - No purulence, no erythema, no streaking, no odor, no infection. There is some distal peripheral wound margin epithelialization migration noted. Her peripheral skin is atrophic. Wound Measurements and Assessment WC - Nurse 1 - General Ulcer Measurement Start: 07/02/17 15:57 Freq: Status: Active Protocol: Activity Type Activity Date Activity User E-Sign Co-Sign Detail Recorded Client Recorded Date Recorded By Document 07/16/17 15:54 MW [id number] 07/16/17 15:57 MW 07/16/17 15:54 Wound Center Nurse 1 [Ulcer Assessment] #3 Left Gutierrez -Combined with other wound No -Current Size (cm) - Length 2.1 -Current Size (cm) - Width 3.0 -Current Size (cm) - Depth 0.1 -Total Square Cm 6.30 -Date of Last Picture (Recall this 07/16/17 field) -Photo Taken Yes -Epithelialization Small 1-33% -Tunneling No -Undermining/Tunneling No -Circular Undermining No -Exudate Amt Small (1-33%) -Exudate Type Serosanguineous -Wound Margin Flat & Intact -Granulation Amt Large (67-100%) -Granulation Quality Red -Slough/Fibrin Yes -Necrosis Amt Small (1-33%) -Necrotic Tissue Type Adherent Slough -Structure Exposed N/A -Texture (Jenny-wound Skin Appearance) Assessed Localized Edema Scarring -Moisture (Jenny-wound Skin Appearance Assessed ) Dry/Scaly -Color (Jenny-wound Skin Appearance) Assessed Rubor -Temperature (Jenny-wound Skin No Abnormality Appearance) (Pt Warm) -Tenderness on Palpation (Jenny-wound Yes Skin Appearance) -Ulcer Cleansing Not Cleansed -Foul Odor after Cleansing No -Anesthetic Used 4% Lidocaine Solution [Edema Assessment] -Lower Limb Edema Present Yes -Left Calf (cm) 46.8 -Left Ankle (cm) 27.0 WC - Nurse 2 - General Ulcer CM Notes Start: 07/02/17 15:57 Freq: Status: Active Protocol: Activity Type Activity Date Activity User E-Sign Co-Sign Detail Recorded Client Recorded Date Recorded By Document 07/16/17 16:15 [id number] 07/16/17 16:17 07/16/17 16:15 Wound Center Nurse 2 [Procedure/Treatment] #3 Left Gutierrez -Time 16:15 -Correct Patient Yes -Correct Side, Site, Position Yes -Correct Procedure Yes -Procedure Performed Yes -Type of Procedure Debridement -Clinical Debridement Subcutaneous -Post Debridement Size (cm) - Length 2.2 -Post Debridement Size (cm) - Width 3.0 -Post Debridement Size (cm) - Depth 0.1 -Total Square Cm 6.60 -Wound/Ulcer Outcome Not Healed -Ulcer Cleansing Rinsed/ Irrigated with Saline -Foul Odor after Cleansing No -Bioengineered Tissue Yes -Type of bioengineered Tissue EPIFIX -Expiration Date 03/31/22 -Product Lot Number [id number] -Percent Used 100 -Saline Lot Number [id number] -Topical Lidocaine (%) 4 -Bleeding Controlled with Pressure -Treatment Response Procedure Tolerated Well [See Physician Procedure note for Specifics] Pain Scale: 0-10 Numeric [Pain] -Is Patient Pain Free? Yes Musculoskeletal: No Tenderness to Palpation of Joints or Extremities, Muscle Wasting, Tenderness - Decreased wound tenderness palpation Neurological: - - Altered sensation at the wound site is decreased Psych/Mental Status: Normal Affect, Appropriate Debridement Note Post-Debridement Measurements/Treatment WC - Nurse 2 - General Ulcer CM Notes Start: 07/02/17 15:57 Freq: Status: Active Protocol: Activity Type Activity Date Activity User E-Sign Co-Sign Detail Recorded Client Recorded Date Recorded By Document 07/02/17 16:29 [id number] 07/02/17 16:31 Document 07/09/17 17:07 [id number] 07/09/17 17:09 Document 07/16/17 16:15 [id number] 07/16/17 16:17 07/02/17 07/09/17 07/16/17 16:29 17:07 16:15 Wound Center Nurse 2 #3 Left Gutierrez -Time 16:30 17:07 16:15 -Correct Patient Yes Yes Yes -Correct Side, Site, Position Yes Yes Yes -Correct Procedure Yes Yes Yes -Procedure Performed Yes Yes Yes -Type of Procedure Debridement Debridement Debridement -Clinical Debridement Subcutaneous Subcutaneous Subcutaneous -Post Debridement Size (cm) - Length 2.5 2.7 2.2 -Post Debridement Size (cm) - Width 1.6 2.2 3.0 -Post Debridement Size (cm) - Depth 0.1 0.1 0.1 -Total Square Cm 4.00 5.94 6.60 -Wound/Ulcer Outcome Not Healed Not Healed Not Healed -Ulcer Cleansing Rinsed/ Rinsed/ Rinsed/ Irrigated with Irrigated with Irrigated with Saline Saline Saline -Foul Odor after Cleansing No No No -Bioengineered Tissue Yes Yes Yes -Type of bioengineered Tissue EPIFIX EPIFIX EPIFIX -Expiration Date 03/31/22 03/31/22 03/31/22 -Product Lot Number [id number] -Percent Used 100 100 100 -Saline Lot Number [id number] -Topical Lidocaine (%) 4 4 -Bleeding Controlled with Pressure Pressure Pressure -Treatment Response Procedure Procedure Procedure Tolerated Well Tolerated Well Tolerated Well Pain Scale: 0-10 Numeric Is Patient Pain Free? Yes Yes Yes Wound debrided: leg Laterality: Left Type of Debridement: Excisional debridement Anesthesia Used: 4% Lidocaine Solution Depth: in the subcutaneous layer Percentage of wound debrided: 100 Instrument Used: #15 blade Tissue Removed: fibrous, devitalized subcutaneous, biofilm, slough Severity: Fat Layer Exposed Amount of bleeding with debridement: Mild Bleeding Controlled with: Pressure Patient tolerated procedure well Assessment/Plan Active Problems Non-compliance (Chronic) Delayed wound healing (Chronic) Venous insufficiency of left leg (Chronic) Chronic ulcer of left lower extremity with fat layer exposed (Chronic) Assessment: Chronic and recurrent ulcer to the left gutierrez. Venous insufficiency left lower extremity. non compliance. delayed healing Plan: I reviewed and discussed the case with the patient today. The ulcer site was debrided subcutaneously as noted in the clinical panel. An advanced wound care product, epi fix, was applied according to standard protocol after verbal consent was obtained and saline irrigation was performed. She tolerated this well. This was secured in place with Steri-Strips and wound veil. An outer dressing was applied. She was advised to keep this clean and intact until follow-up visit next week. The purpose of the advanced product was discussed and she demonstrates understanding. An additional compression dressing, 3M2L was applied. She did well with this last week. Compliance was reiterated today. A previous prescription for CircAid compression wraps provided. She is not able to complete this at this time due to lack of financial support. She reports she is having a current hardship. I offered her a genesis opportunity and she reports she is willing to help out with the needed paperwork to see if she qualifies. She was reminded to complete this paperwork in a timely manner. . To resume nutritional supplementation to optimize healing. To avoid idle standing and sitting to help reduce fluid collection in the lower extremities. Dr. Barnes suggested Lasix and management per Dr. Barnes will be encouraged. She was reassured no signs of infection noted today. To monitor. . There is no deep venous thrombosis noted in her recent venous Doppler. There is some venous reflux noted at some of the lower extremity sites. To follow-up with Dr. Bella. He recommended improving compliance with compression dressings with 30-40 mmHg for the next 1-2 months. If delays in healing are noted he recommend following up in the clinical setting to see if additional intervention is appropriate. Teresa is amenable to this plan. Her CBC and CMP were reviewed. No leukocytosis is noted. Her albumin levels 3.6. To return to clinic in 1 week at the wound care center or call sooner if questions or concerns. I answered all of her questions today.
[2017-07-23 16:36] VITALS: BP 139/68; PULSE 72; RESP 18; TEMP 36.2
--- NOTE | 2017-07-24 12:57 | PN.PCM_ITS ---
(1) Chronic ulcer of left lower extremity with fat layer exposed Status: Chronic Current Visit: Yes Code(s): L97.922 - Non-pressure chronic ulcer of unspecified part of left lower leg with fat layer exposed (2) Delayed wound healing Status: Chronic Current Visit: Yes Code(s): T14.8 - Other injury of unspecified body region (3) Venous insufficiency of left leg Status: Chronic Current Visit: Yes Code(s): I87.2 - Venous insufficiency ( chronic) (peripheral) (4) Non-compliance Status: Chronic Current Visit: Yes Code(s): Z91.19 - Patient's noncompliance with other medical treatment and regimen Type of Wound Date of Service: 07/25/17 Chief Complaint: Chronic ulcer to the left lower extremity History of Wound: This 61 year old patient returns to the wound healing center for follow up of her chronic ulcer to her left gutierrez that has returned. She has continued bilateral lower extremity edema this is decreased the past week with her multilayer compression dressing. She had venous ablation procedure performed with . She did not complete the paperwork to apply for CircAid compression dressing [employer]. She denies fever, chill, nausea, vomiting, calf pain, or shortness of breath, or wound redness or odor. She did not complete her paperwork. Progress of Wound: Improving but delayed - Physical Exam Vital Signs Temp Pulse Resp BP 97.1 F L 72 18 139/68 H 07/23/17 16:36 07/23/17 16:36 07/23/17 16:36 07/23/17 16:36 General: Alert, Oriented x3, Cooperative Extremities: No cyanosis, Capillary Refill Less than 3 Seconds, No Calf Tenderness - Negative Italo and Castillo left, Diminished Peripheral Pulses, Edema Skin: Ulcer/ Wound - No purulence, no erythema, streaking, odor, no infection. There is some peripheral epithelialization noted. Her skin is atrophic. Wound Measurements and Assessment WC - Nurse 1 - General Ulcer Measurement Start: 07/02/17 15:57 Freq: Status: Active Protocol: Activity Type Activity Date Activity User E-Sign Co-Sign Detail Recorded Client Recorded Date Recorded By Document 07/23/17 16:36 RB [id number] 07/23/17 16:49 RB 07/23/17 16:36 Wound Center Nurse 1 [Ulcer Assessment] #3 Left Gutierrez -Combined with other wound No -Current Size (cm) - Length 2.5 -Current Size (cm) - Width 2.7 -Current Size (cm) - Depth 0.1 -Total Square Cm 6.75 -Photo Taken No -Epithelialization Small 1-33% -Tunneling No -Undermining/Tunneling No -Circular Undermining No -Classification - Thickness Full Thickness without Exposed Support Structure -Exudate Amt Small (1-33%) -Exudate Type Serosanguineous -Wound Margin Distinct, Outline Attached -Granulation Amt Medium (34-66%) -Granulation Quality [place] -Slough/Fibrin Yes -Necrosis Amt Medium (34-66%) -Necrotic Tissue Type Adherent Slough -Structure Exposed N/A -Texture (Jenny-wound Skin Appearance) Assessed -Moisture (Jenny-wound Skin Appearance Assessed ) -Color (Jenny-wound Skin Appearance) Assessed -Temperature (Jenny-wound Skin No Abnormality Appearance) (Pt Warm) -Tenderness on Palpation (Jenny-wound No Skin Appearance) -Ulcer Cleansing Rinsed/ Irrigated with Saline -Foul Odor after Cleansing No -Anesthetic Used 5% Lidocaine Gel [Edema Assessment] -Lower Limb Edema Present Yes -Left Calf (cm) 47.5 -Left Ankle (cm) 26.2 WC - Nurse 2 - General Ulcer CM Notes Start: 07/02/17 15:57 Freq: Status: Active Protocol: Activity Type Activity Date Activity User E-Sign Co-Sign Detail Recorded Client Recorded Date Recorded By Document 07/23/17 17:18 JEFF [id number] 07/23/17 17:21 JEFF 07/23/17 17:18 Wound Center Nurse 2 [Procedure/Treatment] #3 Left Gutierrez -Time 17:18 -Correct Patient Yes -Correct Side, Site, Position Yes -Correct Procedure Yes -Procedure Performed Yes -Type of Procedure Debridement -Clinical Debridement Subcutaneous -Post Debridement Size (cm) - Length 2.6 -Post Debridement Size (cm) - Width 2.8 -Post Debridement Size (cm) - Depth 0.1 -Total Square Cm 7.28 -Wound/Ulcer Outcome Not Healed -Ulcer Cleansing Rinsed/ Irrigated with Saline -Foul Odor after Cleansing No -Bioengineered Tissue Yes -Type of bioengineered Tissue EPIFIX -Expiration Date 03/31/22 -Product Lot Number [id number] -Percent Used 100 -Saline Lot Number [id number] -Bleeding Controlled with Pressure -Other 30% debridement of ulcer. -Treatment Response Procedure Tolerated Well [See Physician Procedure note for Specifics] Pain Scale: 0-10 Numeric [Pain] -Is Patient Pain Free? Yes Musculoskeletal: No Tenderness to Palpation of Joints or Extremities, Muscle Wasting Neurological: - - Decreased sensation with wound manipulation palpation Psych/Mental Status: Normal Affect, Appropriate Debridement Note Post-Debridement Measurements/Treatment WC - Nurse 2 - General Ulcer CM Notes Start: 07/02/17 15:57 Freq: Status: Active Protocol: Activity Type Activity Date Activity User E-Sign Co-Sign Detail Recorded Client Recorded Date Recorded By Document 07/02/17 16:29 [id number] 07/02/17 16:31 Document 07/09/17 17:07 [id number] 07/09/17 17:09 TM Document 07/16/17 16:15 [id number] 07/16/17 16:17 Document 07/23/17 17:18 [id number] 07/23/17 17:21 07/02/17 07/09/17 07/16/17 16:29 17:07 16:15 Wound Center Nurse 2 #3 Left Gutierrez -Time 16:30 17:07 16:15 -Correct Patient Yes Yes Yes -Correct Side, Site, Position Yes Yes Yes -Correct Procedure Yes Yes Yes -Procedure Performed Yes Yes Yes -Type of Procedure Debridement Debridement Debridement -Clinical Debridement Subcutaneous Subcutaneous Subcutaneous -Post Debridement Size (cm) - Length 2.5 2.7 2.2 -Post Debridement Size (cm) - Width 1.6 2.2 3.0 -Post Debridement Size (cm) - Depth 0.1 0.1 0.1 -Total Square Cm 4.00 5.94 6.60 -Wound/Ulcer Outcome Not Healed Not Healed Not Healed -Ulcer Cleansing Rinsed/ Rinsed/ Rinsed/ Irrigated with Irrigated with Irrigated with Saline Saline Saline -Foul Odor after Cleansing No No No -Bioengineered Tissue Yes Yes Yes -Type of bioengineered Tissue EPIFIX EPIFIX EPIFIX -Expiration Date 03/31/22 03/31/22 03/31/22 -Product Lot Number [id number] -Percent Used 100 100 100 -Saline Lot Number [id number] -Topical Lidocaine (%) 4 4 -Bleeding Controlled with Pressure Pressure Pressure -Other -Treatment Response Procedure Procedure Procedure Tolerated Well Tolerated Well Tolerated Well Pain Scale: 0-10 Numeric Is Patient Pain Free? Yes Yes Yes 07/23/17 17:18 Wound Center Nurse 2 #3 Left Gutierrez -Time 17:18 -Correct Patient Yes -Correct Side, Site, Position Yes -Correct Procedure Yes -Procedure Performed Yes -Type of Procedure Debridement -Clinical Debridement Subcutaneous -Post Debridement Size (cm) - Length 2.6 -Post Debridement Size (cm) - Width 2.8 -Post Debridement Size (cm) - Depth 0.1 -Total Square Cm 7.28 -Wound/Ulcer Outcome Not Healed -Ulcer Cleansing Rinsed/ Irrigated with Saline -Foul Odor after Cleansing No -Bioengineered Tissue Yes -Type of bioengineered Tissue EPIFIX -Expiration Date 03/31/22 -Product Lot Number [id number] -Percent Used 100 -Saline Lot Number [id number] -Topical Lidocaine (%) -Bleeding Controlled with Pressure -Other 30% debridement of ulcer. -Treatment Response Procedure Tolerated Well Pain Scale: 0-10 Numeric Is Patient Pain Free? Yes Wound debrided: leg Laterality: Left Type of Debridement: Excisional debridement Anesthesia Used: 4% Lidocaine Solution Depth: in the subcutaneous layer Percentage of wound debrided: 100 Instrument Used: #15 blade Tissue Removed: fibrous, devitalized subcutaneous, biofilm, slough Severity: Fat Layer Exposed Amount of bleeding with debridement: Mild Bleeding Controlled with: Pressure Patient tolerated procedure well Assessment/Plan Active Problems Non-compliance (Chronic) Delayed wound healing (Chronic) Venous insufficiency of left leg (Chronic) Chronic ulcer of left lower extremity with fat layer exposed (Chronic) Assessment: Chronic and recurrent ulcer to the left gutierrez. Venous insufficiency left lower extremity. non compliance. delayed healing Plan: I reviewed and discussed the case with the patient today. The ulcer site was debrided subcutaneously as noted in the clinical panel. An advanced wound care product, epi fix, was applied according to standard protocol after verbal consent was obtained and saline irrigation was performed. She tolerated this well. This was secured in place with Steri-Strips and wound veil. An outer dressing was applied. She was advised to keep this clean and intact until follow-up visit next week. The purpose of the advanced product was discussed and she demonstrates understanding. An additional compression dressing, 3M2L was applied. She did well with this last week. Compliance was reiterated today. A previous prescription for CircAid compression wraps provided. She is not able to complete this at this time due to lack of financial support. She reports she is having a current hardship. I offered her a [employer] opportunity and she reports she is willing to help out with the needed paperwork to see if she qualifies. She was reminded to complete this paperwork in a timely manner and has not done this yet. . To resume nutritional supplementation to optimize healing. To avoid idle standing and sitting to help reduce fluid collection in the lower extremities. Dr. Barnes suggested Lasix and management per Dr. Barnes will be encouraged. She was reassured no signs of infection noted today. To monitor. . There is no deep venous thrombosis noted in her recent venous Doppler. There is some venous reflux noted at some of the lower extremity sites. To follow-up with Dr. Bella. He recommended improving compliance with compression dressings with 30- 40 mmHg for the next 1-2 months. If delays in healing are noted he recommend following up in the clinical setting to see if additional intervention is appropriate. Teresa is amenable to this plan. Her CBC and CMP were reviewed. No leukocytosis is noted. Her albumin levels 3.6. To return to clinic in 1 week at the wound care center or call sooner if questions or concerns. I answered all of her questions today.
== END 2017-07-28 23:59 ==
LOC: WC 16:00
PROVIDERS: Family Provider Internal Medicine; PCP Internal Medicine; Visit Provider Podiatrist
DX: I87.2 Venous insufficiency (chronic) (peripheral) (principal); L97.822 Non-pressure chronic ulcer of other part of left lower leg with fat layer exposed; R60.0 Localized edema; Z91.19 Patient's noncompliance with other medical treatment and regimen
CPT/HCPCS: 15271; 29581; Q4131

== ENCOUNTER 2017-08-27 16:00 | Outpatient (RCR) | payer MEDICAID, SELFPAY ==
[2017-07-29 00:26] VITALS: BP 140/76; PULSE 72; RESP 18; TEMP 36.2
[2017-07-30 15:55] VITALS: BP 143/76; PULSE 66; RESP 18; TEMP 36.7
--- NOTE | 2017-07-30 17:38 | PCM.WC.PN ---
(1) Chronic ulcer of left lower extremity with fat layer exposed Status: Chronic Current Visit: Yes Code(s): L97.922 - Non-pressure chronic ulcer of unspecified part of left lower leg with fat layer exposed (2) Lymphedema Status: Acute Current Visit: Yes Code(s): I89.0 - Lymphedema, not elsewhere classified (3) Non-compliance Status: Chronic Current Visit: Yes Code(s): Z91.19 - Patient's noncompliance with other medical treatment and regimen (4) Delayed wound healing Status: Chronic Current Visit: Yes Code(s): T14.8 - Other injury of unspecified body region (5) Localized edema Status: Chronic Current Visit: Yes Code(s): R60.0 - Localized edema (6) Venous insufficiency of left leg Status: Chronic Current Visit: Yes Code(s): I87.2 - Venous insufficiency (chronic) (peripheral) Type of Wound Date of Service: 07/31/17 Chief Complaint: Chronic ulcer to the left lower extremity History of Wound: This 61 year old patient returns to the wound healing center for follow up of her chronic ulcer to her left gutierrez. She has continued bilateral lower extremity edema this is decreased the past week with her multilayer compression dressing. She had venous ablation procedure performed with . She did not complete the paperwork to apply for CircAid compression dressing [employer]. She denies fever, chill, nausea, vomiting, calf pain, or shortness of breath, or wound redness or odor. She did complete her paperwork for circaid wrap coverage through [employer] and has handed this in today. Progress of Wound: Improving - Physical Exam Vital Signs Temp Pulse Resp BP 98.0 F 66 18 143/76 H 07/30/17 15:55 07/30/17 15:55 07/30/17 15:55 07/30/17 15:55 General: Alert, Oriented x3, Cooperative Extremities: No cyanosis, Capillary Refill Less than 3 Seconds, No Calf Tenderness - negative tonya and palencia bilateral, Diminished Peripheral Pulses, Edema - bilateral Skin: Ulcer/ Wound - no purulence, no erythema, no infection, no odor, no acute infection noted, - - atrophic skin noted bilateral Wound Measurements and Assessment WC - Nurse 1 - General Ulcer Measurement Start: 07/30/17 15:55 Freq: Status: Active Protocol: Activity Type Activity Date Activity User E-Sign Co-Sign Detail Recorded Client Recorded Date Recorded By Document 07/30/17 15:55 MW [id number] 07/30/17 16:04 MW 07/30/17 15:55 Wound Center Nurse 1 [Ulcer Assessment] #3 Left Gutierrez -Combined with other wound No -Current Size (cm) - Length 1.7 -Current Size (cm) - Width 1.9 -Current Size (cm) - Depth 0.1 -Total Square Cm 3.23 -Photo Taken No -Epithelialization None Present -Tunneling No -Undermining/Tunneling No -Circular Undermining No -Exudate Amt Small (1-33%) -Exudate Type Serosanguineous -Wound Margin Flat & Intact -Granulation Amt Large (67-100%) -Granulation Quality Hyper- granulation Red -Necrosis Amt Small (1-33%) -Necrotic Tissue Type Adherent Slough -Structure Exposed N/A -Texture (Jenny-wound Skin Appearance) Assessed Localized Edema Scarring -Moisture (Jenny-wound Skin Appearance Assessed ) Dry/Scaly -Color (Jenny-wound Skin Appearance) Assessed Hemosiderin Staining -Temperature (Jenny-wound Skin No Abnormality Appearance) (Pt Warm) -Tenderness on Palpation (Jenny-wound No Skin Appearance) -Ulcer Cleansing soap and water -Foul Odor after Cleansing No -Anesthetic Used 4% Lidocaine Solution [Edema Assessment] -Lower Limb Edema Present Yes -Left Calf (cm) 48.0 -Left Ankle (cm) 28.0 WC - Nurse 2 - General Ulcer CM Notes Start: 07/30/17 15:55 Freq: Status: Active Protocol: Activity Type Activity Date Activity User E-Sign Co-Sign Detail Recorded Client Recorded Date Recorded By Document 07/30/17 16:23 [id number] 07/30/17 16:25 07/30/17 16:23 Wound Center Nurse 2 [Procedure/Treatment] #3 Left Gutierrez -Time 16:23 -Correct Patient Yes -Correct Side, Site, Position Yes -Correct Procedure Yes -Procedure Performed Yes -Type of Procedure Debridement -Clinical Debridement Subcutaneous -Post Debridement Size (cm) - Length 1.7 -Post Debridement Size (cm) - Width 2 -Post Debridement Size (cm) - Depth 0.1 -Total Square Cm 3.4 -Wound/Ulcer Outcome Not Healed -Ulcer Cleansing Rinsed/ Irrigated with Saline -Foul Odor after Cleansing No -Bioengineered Tissue Yes -Type of bioengineered Tissue EPIFIX -Expiration Date 03/31/22 -Product Lot Number [id number] -Percent Used 100 -Bleeding Controlled with Pressure -Treatment Response Procedure Tolerated Well [See Physician Procedure note for Specifics] Pain Scale: 0-10 Numeric [Pain] -Is Patient Pain Free? Yes Musculoskeletal: No Tenderness to Palpation of Joints or Extremities, Muscle Wasting Neurological: Sensory exam intact to light touch and pain Psych/Mental Status: Normal Affect, Appropriate Debridement Note Post-Debridement Measurements/Treatment WC - Nurse 2 - General Ulcer CM Notes Start: 07/30/17 15:55 Freq: Status: Active Protocol: Activity Type Activity Date Activity User E-Sign Co-Sign Detail Recorded Client Recorded Date Recorded By Document 07/30/17 16:23 [id number] 07/30/17 16:25 JEFF 07/30/17 16:23 Wound Center Nurse 2 #3 Left Gutierrez -Time 16:23 -Correct Patient Yes -Correct Side, Site, Position Yes -Correct Procedure Yes -Procedure Performed Yes -Type of Procedure Debridement -Clinical Debridement Subcutaneous -Post Debridement Size (cm) - Length 1.7 -Post Debridement Size (cm) - Width 2 -Post Debridement Size (cm) - Depth 0.1 -Total Square Cm 3.4 -Wound/Ulcer Outcome Not Healed -Ulcer Cleansing Rinsed/ Irrigated with Saline -Foul Odor after Cleansing No -Bioengineered Tissue Yes -Type of bioengineered Tissue EPIFIX -Expiration Date 03/31/22 -Product Lot Number [id number] -Percent Used 100 -Bleeding Controlled with Pressure -Treatment Response Procedure Tolerated Well Pain Scale: 0-10 Numeric Is Patient Pain Free? Yes Wound debrided: leg Laterality: Left Type of Debridement: Excisional debridement Anesthesia Used: 5% Lidocaine Gel Depth: in the subcutaneous layer Percentage of wound debrided: 100 Instrument Used: #15 blade Tissue Removed: fibrous, devitalized subcutaneous, biofilm, slough Severity: Fat Layer Exposed Amount of bleeding with debridement: Mild Bleeding Controlled with: Pressure Patient tolerated procedure well Assessment/Plan Active Problems Non-compliance (Chronic) Lymphedema (Acute) Delayed wound healing (Chronic) Localized edema (Chronic) Venous insufficiency of left leg (Chronic) Chronic ulcer of left lower extremity with fat layer exposed (Chronic) Assessment: Chronic and recurrent ulcer to the left gutierrez. Venous insufficiency left lower extremity. non compliance. delayed healing Plan: I reviewed and discussed the case with the patient today. The ulcer site was debrided subcutaneously as noted in the clinical panel. An advanced wound care product, epi fix, was applied according to standard protocol after verbal consent was obtained and saline irrigation was performed. She tolerated this well. This was secured in place with Steri-Strips and wound veil. An outer dressing was applied. She was advised to keep this clean and intact until follow-up visit next week. The purpose of the advanced product was discussed and she demonstrates understanding. An additional compression dressing, 3M2L was applied. She did well with this last week. Compliance was reiterated today. A previous prescription for CircAid compression wraps provided. She is not able to complete this at this time due to lack of financial support. She reports she is having a current hardship. I offered her a [employer] opportunity and she reports she is willing to help out with the needed paperwork to see if she qualifies. This was completed today and willbe faxed over for consideration. . To resume nutritional supplementation to optimize healing. To avoid idle standing and sitting to help reduce fluid collection in the lower extremities. Dr. Barnes suggested Lasix and management per Dr. Barnes will be encouraged. She was reassured no signs of infection noted today. To monitor. . There is no deep venous thrombosis noted in her recent venous Doppler. There is some venous reflux noted at some of the lower extremity sites. To follow-up with Dr. Bella. He recommended improving compliance with compression dressings with 30-40 mmHg for the next 1-2 months. If delays in healing are noted he recommend following up in the clinical setting to see if additional intervention is appropriate. Teresa is amenable to this plan. Her CBC and CMP were reviewed. No leukocytosis is noted. Her albumin levels 3.6. To return to clinic in 1 week at the wound care center or call sooner if questions or concerns. I answered all of her questions today.
--- NOTE | 2017-07-30 17:42 | PN.PCM_ITS ---
(1) Chronic ulcer of left lower extremity with fat layer exposed Status: Chronic Current Visit: Yes Code(s): L97.922 - Non-pressure chronic ulcer of unspecified part of left lower leg with fat layer exposed (2) Lymphedema Status: Acute Current Visit: Yes Code(s): I89.0 - Lymphedema, not elsewhere classified (3) Non-compliance Status: Chronic Current Visit: Yes Code(s): Z91.19 - Patient's noncompliance with other medical treatment and regimen (4) Delayed wound healing Status: Chronic Current Visit: Yes Code(s): T14.8 - Other injury of unspecified body region (5) Localized edema Status: Chronic Current Visit: Yes Code(s): R60.0 - Localized edema (6) Venous insufficiency of left leg Status: Chronic Current Visit: Yes Code(s): I87.2 - Venous insufficiency ( chronic) (peripheral) Type of Wound Date of Service: 07/31/17 Chief Complaint: Chronic ulcer to the left lower extremity History of Wound: This 61 year old patient returns to the wound healing center for follow up of her chronic ulcer to her left gutierrez. She has continued bilateral lower extremity edema this is decreased the past week with her multilayer compression dressing. She had venous ablation procedure performed with . She did not complete the paperwork to apply for CircAid compression dressing [employer]. She denies fever, chill, nausea, vomiting, calf pain, or shortness of breath, or wound redness or odor. She did complete her paperwork for circaid wrap coverage through [employer] and has handed this in today. Progress of Wound: Improving - Physical Exam Vital Signs Temp Pulse Resp BP 98.0 F 66 18 143/76 H 07/30/17 15:55 07/30/17 15:55 07/30/17 15:55 07/30/17 15:55 General: Alert, Oriented x3, Cooperative Extremities: No cyanosis, Capillary Refill Less than 3 Seconds, No Calf Tenderness - negative tonya and palencia bilateral, Diminished Peripheral Pulses, Edema - bilateral Skin: Ulcer/ Wound - no purulence, no erythema, no infection, no odor, no acute infection noted, - - atrophic skin noted bilateral Wound Measurements and Assessment WC - Nurse 1 - General Ulcer Measurement Start: 07/30/17 15:55 Freq: Status: Active Protocol: Activity Type Activity Date Activity User E-Sign Co-Sign Detail Recorded Client Recorded Date Recorded By Document 07/30/17 15:55 MW [id number] 07/30/17 16:04 MW 07/30/17 15:55 Wound Center Nurse 1 [Ulcer Assessment] #3 Left Gutierrez -Combined with other wound No -Current Size (cm) - Length 1.7 -Current Size (cm) - Width 1.9 -Current Size (cm) - Depth 0.1 -Total Square Cm 3.23 -Photo Taken No -Epithelialization None Present -Tunneling No -Undermining/Tunneling No -Circular Undermining No -Exudate Amt Small (1-33%) -Exudate Type Serosanguineous -Wound Margin Flat & Intact -Granulation Amt Large (67-100%) -Granulation Quality Hyper- granulation Red -Necrosis Amt Small (1-33%) -Necrotic Tissue Type Adherent Slough -Structure Exposed N/A -Texture (Jenny-wound Skin Appearance) Assessed Localized Edema Scarring -Moisture (Jenny-wound Skin Appearance Assessed ) Dry/Scaly -Color (Jenny-wound Skin Appearance) Assessed Hemosiderin Staining -Temperature (Jenny-wound Skin No Abnormality Appearance) (Pt Warm) -Tenderness on Palpation (Jenny-wound No Skin Appearance) -Ulcer Cleansing soap and water -Foul Odor after Cleansing No -Anesthetic Used 4% Lidocaine Solution [Edema Assessment] -Lower Limb Edema Present Yes -Left Calf (cm) 48.0 -Left Ankle (cm) 28.0 WC - Nurse 2 - General Ulcer CM Notes Start: 07/30/17 15:55 Freq: Status: Active Protocol: Activity Type Activity Date Activity User E-Sign Co-Sign Detail Recorded Client Recorded Date Recorded By Document 07/30/17 16:23 [id number] 07/30/17 16:25 07/30/17 16:23 Wound Center Nurse 2 [Procedure/Treatment] #3 Left Gutierrez -Time 16:23 -Correct Patient Yes -Correct Side, Site, Position Yes -Correct Procedure Yes -Procedure Performed Yes -Type of Procedure Debridement -Clinical Debridement Subcutaneous -Post Debridement Size (cm) - Length 1.7 -Post Debridement Size (cm) - Width 2 -Post Debridement Size (cm) - Depth 0.1 -Total Square Cm 3.4 -Wound/Ulcer Outcome Not Healed -Ulcer Cleansing Rinsed/ Irrigated with Saline -Foul Odor after Cleansing No -Bioengineered Tissue Yes -Type of bioengineered Tissue EPIFIX -Expiration Date 03/31/22 -Product Lot Number [id number] -Percent Used 100 -Bleeding Controlled with Pressure -Treatment Response Procedure Tolerated Well [See Physician Procedure note for Specifics] Pain Scale: 0-10 Numeric [Pain] -Is Patient Pain Free? Yes Musculoskeletal: No Tenderness to Palpation of Joints or Extremities, Muscle Wasting Neurological: Sensory exam intact to light touch and pain Psych/Mental Status: Normal Affect, Appropriate Debridement Note Post-Debridement Measurements/Treatment WC - Nurse 2 - General Ulcer CM Notes Start: 07/30/17 15:55 Freq: Status: Active Protocol: Activity Type Activity Date Activity User E-Sign Co-Sign Detail Recorded Client Recorded Date Recorded By Document 07/30/17 16:23 [id number] 07/30/17 16:25 JEFF 07/30/17 16:23 Wound Center Nurse 2 #3 Left Gutierrez -Time 16:23 -Correct Patient Yes -Correct Side, Site, Position Yes -Correct Procedure Yes -Procedure Performed Yes -Type of Procedure Debridement -Clinical Debridement Subcutaneous -Post Debridement Size (cm) - Length 1.7 -Post Debridement Size (cm) - Width 2 -Post Debridement Size (cm) - Depth 0.1 -Total Square Cm 3.4 -Wound/Ulcer Outcome Not Healed -Ulcer Cleansing Rinsed/ Irrigated with Saline -Foul Odor after Cleansing No -Bioengineered Tissue Yes -Type of bioengineered Tissue EPIFIX -Expiration Date 03/31/22 -Product Lot Number [id number] -Percent Used 100 -Bleeding Controlled with Pressure -Treatment Response Procedure Tolerated Well Pain Scale: 0-10 Numeric Is Patient Pain Free? Yes Wound debrided: leg Laterality: Left Type of Debridement: Excisional debridement Anesthesia Used: 5% Lidocaine Gel Depth: in the subcutaneous layer Percentage of wound debrided: 100 Instrument Used: #15 blade Tissue Removed: fibrous, devitalized subcutaneous, biofilm, slough Severity: Fat Layer Exposed Amount of bleeding with debridement: Mild Bleeding Controlled with: Pressure Patient tolerated procedure well Assessment/Plan Active Problems Non-compliance (Chronic) Lymphedema (Acute) Delayed wound healing (Chronic) Localized edema (Chronic) Venous insufficiency of left leg (Chronic) Chronic ulcer of left lower extremity with fat layer exposed (Chronic) Assessment: Chronic and recurrent ulcer to the left gutierrez. Venous insufficiency left lower extremity. non compliance. delayed healing Plan: I reviewed and discussed the case with the patient today. The ulcer site was debrided subcutaneously as noted in the clinical panel. An advanced wound care product, epi fix, was applied according to standard protocol after verbal consent was obtained and saline irrigation was performed. She tolerated this well. This was secured in place with Steri-Strips and wound veil. An outer dressing was applied. She was advised to keep this clean and intact until follow-up visit next week. The purpose of the advanced product was discussed and she demonstrates understanding. An additional compression dressing, 3M2L was applied. She did well with this last week. Compliance was reiterated today. A previous prescription for CircAid compression wraps provided. She is not able to complete this at this time due to lack of financial support. She reports she is having a current hardship. I offered her a [employer] [facility] and she reports she is willing to help out with the needed paperwork to see if she qualifies. This was completed today and willbe faxed over for consideration. . To resume nutritional supplementation to optimize healing. To avoid idle standing and sitting to help reduce fluid collection in the lower extremities. Dr. Barnes suggested Lasix and management per Dr. Barnes will be encouraged. She was reassured no signs of infection noted today. To monitor. . There is no deep venous thrombosis noted in her recent venous Doppler. There is some venous reflux noted at some of the lower extremity sites. To follow-up with Dr. Bella. He recommended improving compliance with compression dressings with 30-40 mmHg for the next 1-2 months. If delays in healing are noted he recommend following up in the clinical setting to see if additional intervention is appropriate. Teresa is amenable to this plan. Her CBC and CMP were reviewed. No leukocytosis is noted. Her albumin levels 3.6. To return to clinic in 1 week at the wound care center or call sooner if questions or concerns. I answered all of her questions today.
[2017-08-05 08:18] VITALS: BP 146/79; PULSE 70; RESP 16; TEMP 35.3
[2017-08-13 15:48] VITALS: BP 135/72; RESP 18; TEMP 36
--- NOTE | 2017-08-13 16:39 | PN.PCM_ITS ---
(1) Chronic ulcer of left lower extremity with fat layer exposed Status: Chronic Current Visit: Yes Code(s): L97.922 - Non-pressure chronic ulcer of unspecified part of left lower leg with fat layer exposed (2) Lymphedema Status: Chronic Current Visit: Yes Code(s): I89.0 - Lymphedema, not elsewhere classified (3) Non-compliance Status: Chronic Current Visit: Yes Code(s): Z91.19 - Patient's noncompliance with other medical treatment and regimen (4) Delayed wound healing Status: Chronic Current Visit: Yes Code(s): T14.8 - Other injury of unspecified body region (5) Localized edema Status: Chronic Current Visit: Yes Code(s): R60.0 - Localized edema (6) Venous insufficiency of left leg Status: Chronic Current Visit: Yes Code(s): I87.2 - Venous insufficiency ( chronic) (peripheral) Type of Wound Date of Service: 08/13/17 Chief Complaint: Chronic ulcer to the left lower extremity History of Wound: This 61 year old patient returns to the wound healing center for follow up of her chronic ulcer to her left gutierrez. She has continued bilateral lower extremity edema this is decreased the past week with her multilayer compression dressing. She had venous ablation procedure performed with . She did complete the paperwork to apply for CircAid compression dressing [employer]. She was notified that this has been approved however she has not received the devices. She reports she will call to follow-up on what she needs to do next. She denies fever, chill, nausea, vomiting, calf pain, or shortness of breath, or wound redness or odor. Progress of Wound: Worsening status - Physical Exam Vital Signs Temp Pulse Resp BP 96.8 F L 70 18 135/72 H 08/13/17 15:48 08/05/17 08:18 08/13/17 15:48 08/13/17 15:48 General: Alert, Oriented x3, Cooperative Extremities: No cyanosis, Capillary Refill Less than 3 Seconds, No Calf Tenderness - Negative Italo and Castillo left, Diminished Peripheral Pulses, Edema Skin: Ulcer/ Wound - No purulence, no erythema, skin, no odor, no infection left. wound size is increased and the skin is atrophic. Wound Measurements and Assessment WC - Nurse 1 - General Ulcer Measurement Start: 07/30/17 15:55 Freq: Status: Active Protocol: Activity Type Activity Date Activity User E-Sign Co-Sign Detail Recorded Client Recorded Date Recorded By Document 08/13/17 15:48 [email or web address] [id number] 08/13/17 16:09 08/13/17 15:48 Wound Center Nurse 1 [Ulcer Assessment] #3 Left Gutierrez -Current Size (cm) - Length 2.9 -Current Size (cm) - Width 2.6 -Current Size (cm) - Depth 0 -Total Square Cm 7.54 -Date of Last Picture (Recall this 08/13/17 field) -Photo Taken Yes -Epithelialization None Present -Tunneling No -Undermining/Tunneling No -Circular Undermining No -Classification - Thickness Full Thickness without Exposed Support Structure -Change in Wound Grade/Stage No Query Text:If change please identify the Stage/Grade in the comment (ie. S2 G3) -Exudate Amt Medium (34-66%) -Exudate Type Serosanguineous -Wound Margin Distinct, Outline Attached -Granulation Amt Large (67-100%) -Granulation Quality Hyper- granulation Red -Slough/Fibrin No -Necrosis Amt None Present (0 %) -Structure Exposed N/A -Texture (Jenny-wound Skin Appearance) Assessed -Moisture (Jenny-wound Skin Appearance No Abnormality ) -Color (Jenny-wound Skin Appearance) Hemosiderin Staining -Temperature (Jenny-wound Skin No Abnormality Appearance) (Pt Warm) -Tenderness on Palpation (Jenny-wound No Skin Appearance) -Ulcer Cleansing Rinsed/ Irrigated with Saline -Foul Odor after Cleansing No -Anesthetic Used 4% Lidocaine Solution [Edema Assessment] -Lower Limb Edema Present Yes -Left Calf (cm) 46.5 -Left Ankle (cm) 27.5 WC - Nurse 2 - General Ulcer CM Notes Start: 07/30/17 15:55 Freq: Status: Active Protocol: Activity Type Activity Date Activity User E-Sign Co-Sign Detail Recorded Client Recorded Date Recorded By Document 08/13/17 16:26 [id number] 08/13/17 16:26 08/13/17 16:26 Wound Center Nurse 2 [Procedure/Treatment] #3 Left Gutierrez -Time 16:26 -Correct Patient Yes -Correct Side, Site, Position Yes -Correct Procedure Yes -Procedure Performed Yes -Type of Procedure Debridement -Clinical Debridement Subcutaneous -Post Debridement Size (cm) - Length 3 -Post Debridement Size (cm) - Width 2.6 -Post Debridement Size (cm) - Depth 0.1 -Total Square Cm 7.8 -Wound/Ulcer Outcome Not Healed -Ulcer Cleansing Rinsed/ Irrigated with Saline -Foul Odor after Cleansing No -Bioengineered Tissue No -Bleeding Controlled with Pressure -Treatment Response Procedure Tolerated Well [See Physician Procedure note for Specifics] Pain Scale: 0-10 Numeric [Pain] -Is Patient Pain Free? Yes Neurological: - - Lack of epicritic sensation light touch left Psych/Mental Status: Normal Affect, Appropriate Debridement Note Post-Debridement Measurements/Treatment WC - Nurse 2 - General Ulcer CM Notes Start: 07/30/17 15:55 Freq: Status: Active Protocol: Activity Type Activity Date Activity User E-Sign Co-Sign Detail Recorded Client Recorded Date Recorded By Document 07/30/17 16:23 [id number] 07/30/17 16:25 Document 08/13/17 16:26 [id number] 08/13/17 16:26 07/30/17 08/13/17 16:23 16:26 Wound Center Nurse 2 #3 Left Gutierrez -Time 16:23 16:26 -Correct Patient Yes Yes -Correct Side, Site, Position Yes Yes -Correct Procedure Yes Yes -Procedure Performed Yes Yes -Type of Procedure Debridement Debridement -Clinical Debridement Subcutaneous Subcutaneous -Post Debridement Size (cm) - Length 1.7 3 -Post Debridement Size (cm) - Width 2 2.6 -Post Debridement Size (cm) - Depth 0.1 0.1 -Total Square Cm 3.4 7.8 -Wound/Ulcer Outcome Not Healed Not Healed -Ulcer Cleansing Rinsed/ Rinsed/ Irrigated with Irrigated with Saline Saline -Foul Odor after Cleansing No No -Bioengineered Tissue Yes No -Type of bioengineered Tissue EPIFIX -Expiration Date 03/31/22 -Product Lot Number [id number] -Percent Used 100 -Bleeding Controlled with Pressure Pressure -Treatment Response Procedure Procedure Tolerated Well Tolerated Well Pain Scale: 0-10 Numeric Is Patient Pain Free? Yes Yes Wound debrided: leg Laterality: Left Type of Debridement: Excisional debridement Anesthesia Used: 4% Lidocaine Solution Depth: in the subcutaneous layer Percentage of wound debrided: 100 Instrument Used: 5mm curette Tissue Removed: fibrous, devitalized subcutaneous tissue, biofilm, slough Severity: Fat Layer Exposed Amount of bleeding with debridement: Mild Bleeding Controlled with: Pressure Patient tolerated procedure well Assessment/Plan Active Problems Non-compliance (Chronic) Lymphedema (Chronic) Delayed wound healing (Chronic) Localized edema (Chronic) Venous insufficiency of left leg (Chronic) Chronic ulcer of left lower extremity with fat layer exposed (Chronic) Assessment: Chronic and recurrent ulcer to the left gutierrez - worse. Venous insufficiency left lower extremity. non compliance. delayed healing Plan: I reviewed and discussed the case with the patient today. The ulcer site was debrided subcutaneously as noted in the clinical panel. She has completed a full course of epi fix and had a recent increase in size. She reports increased activity this past Friday she worked at [employer] on Mother's Day. [place] was applied; to change every 1-2 days. An additional compression dressing, 3M2L was applied. She did well with this last week. Compliance was reiterated today. A previous prescription for CircAid compression wraps provided. . To resume nutritional supplementation to optimize healing. To avoid idle standing and sitting to help reduce fluid collection in the lower extremities. Dr. Barnes suggested Lasix and management per Dr. Barnes will be encouraged. She was reassured no signs of infection noted today. To monitor. . There is no deep venous thrombosis noted in her recent venous Doppler. There is some venous reflux noted at some of the lower extremity sites. To follow-up with Dr. Bella. He recommended improving compliance with compression dressings with 30-40 mmHg for the next 1-2 months. If delays in healing are noted he recommend following up in the clinical setting to see if additional intervention is appropriate. Teresa is amenable to this plan. Her CBC and CMP were reviewed. No leukocytosis is noted. Her albumin levels 3.6. To return to clinic in 1 week at the wound care center or call sooner if questions or concerns. I answered all of her questions today.
[2017-08-20 15:52] VITALS: BP 142/67; PULSE 64; RESP 18; TEMP 36
--- NOTE | 2017-08-20 16:52 | PCM.WC.PN ---
(1) Chronic ulcer of left lower extremity with fat layer exposed Status: Chronic Current Visit: Yes Code(s): L97.922 - Non-pressure chronic ulcer of unspecified part of left lower leg with fat layer exposed (2) Lymphedema Status: Chronic Current Visit: Yes Code(s): I89.0 - Lymphedema, not elsewhere classified (3) Non-compliance Status: Chronic Current Visit: Yes Code(s): Z91.19 - Patient's noncompliance with other medical treatment and regimen (4) Delayed wound healing Status: Chronic Current Visit: Yes Code(s): T14.8 - Other injury of unspecified body region (5) Localized edema Status: Chronic Current Visit: Yes Code(s): R60.0 - Localized edema (6) Venous insufficiency of left leg Status: Chronic Current Visit: Yes Code(s): I87.2 - Venous insufficiency (chronic) (peripheral) Type of Wound Date of Service: 08/20/17 Chief Complaint: Chronic ulcer to the left lower extremity History of Wound: This 61 year old patient returns to the wound healing center for follow up of her chronic ulcer to her left ellison. She has continued bilateral lower extremity edema this is decreased the past week with her multilayer compression dressing. She had venous ablation procedure performed with . She did complete the paperwork to apply for CircAid compression dressing [employer]. She was notified that this has been approved however she has not received the devices yet. She reports she will call to follow-up on what she needs to do next. She denies fever, chill, nausea, vomiting, calf pain, or shortness of breath, or wound redness or odor. Progress of Wound: Improved - Physical Exam Vital Signs Temp Pulse Resp BP 96.8 F L 64 18 142/67 H 08/20/17 15:52 08/20/17 15:52 08/20/17 15:52 08/20/17 15:52 General: Alert, Oriented x3, Cooperative Extremities: No cyanosis, Capillary Refill Less than 3 Seconds, No Calf Tenderness, Diminished Peripheral Pulses, Edema Skin: Ulcer/ Wound - No purulence, erythema, streaking, odor, no infection, no eschar to the leg. Improved granulation tissues noted. The peripheral skin is atrophic. Wound Measurements and Assessment WC - Nurse 1 - General Ulcer Measurement Start: 07/30/17 15:55 Freq: Status: Active Protocol: Activity Type Activity Date Activity User E-Sign Co-Sign Detail Recorded Client Recorded Date Recorded By Document 08/20/17 15:52 RB [id number] 08/20/17 16:00 RB 08/20/17 15:52 Wound Center Nurse 1 [Ulcer Assessment] #3 Left Ellison -Combined with other wound No -Current Size (cm) - Length 2 -Current Size (cm) - Width 2.2 -Current Size (cm) - Depth 0.1 -Total Square Cm 4.4 -Photo Taken No -Epithelialization Small 1-33% -Tunneling No -Undermining/Tunneling No -Circular Undermining No -Classification - Thickness Full Thickness without Exposed Support Structure -Exudate Amt Small (1-33%) -Exudate Type Serosanguineous -Wound Margin Distinct, Outline Attached -Granulation Amt Large (67-100%) -Granulation Quality N/A Red -Necrosis Amt Small (1-33%) -Necrotic Tissue Type Adherent Slough -Structure Exposed N/A -Texture (Jenny-wound Skin Appearance) Assessed -Moisture (Jenny-wound Skin Appearance Assessed ) -Color (Jenny-wound Skin Appearance) Hemosiderin Staining -Temperature (Jenny-wound Skin No Abnormality Appearance) (Pt Warm) -Tenderness on Palpation (Jenny-wound No Skin Appearance) -Ulcer Cleansing Wound Cleanser -Foul Odor after Cleansing No -Anesthetic Used 5% Lidocaine Gel [Edema Assessment] -Lower Limb Edema Present Yes -Left Calf (cm) 44 -Left Ankle (cm) 27.6 WC - Nurse 2 - General Ulcer CM Notes Start: 07/30/17 15:55 Freq: Status: Active Protocol: Activity Type Activity Date Activity User E-Sign Co-Sign Detail Recorded Client Recorded Date Recorded By Document 08/20/17 16:39 [id number] 08/20/17 16:40 08/20/17 16:39 Wound Center Nurse 2 [Procedure/Treatment] #3 Left Ellison -Time 16:40 -Correct Patient Yes -Correct Side, Site, Position Yes -Correct Procedure Yes -Procedure Performed Yes -Type of Procedure Debridement -Clinical Debridement Subcutaneous -Post Debridement Size (cm) - Length 2.1 -Post Debridement Size (cm) - Width 2.2 -Post Debridement Size (cm) - Depth 0.1 -Total Square Cm 4.62 -Wound/Ulcer Outcome Not Healed -Ulcer Cleansing Rinsed/ Irrigated with Saline -Foul Odor after Cleansing No -Bioengineered Tissue No -Bleeding Controlled with Pressure -Treatment Response Procedure Tolerated Well [See Physician Procedure note for Specifics] Pain Scale: 0-10 Numeric [Pain] -Is Patient Pain Free? Yes Musculoskeletal: No Tenderness to Palpation of Joints or Extremities, Muscle Wasting, - - Compartment leg soft Neurological: - - Lack of epicritic sensation light touch Psych/Mental Status: Normal Affect, Appropriate Debridement Note Post-Debridement Measurements/Treatment WC - Nurse 2 - General Ulcer CM Notes Start: 07/30/17 15:55 Freq: Status: Active Protocol: Activity Type Activity Date Activity User E-Sign Co-Sign Detail Recorded Client Recorded Date Recorded By Document 07/30/17 16:23 [id number] 07/30/17 16:25 Document 08/13/17 16:26 [id number] 08/13/17 16:26 Document 08/20/17 16:39 [id number] 08/20/17 16:40 07/30/17 08/13/17 08/20/17 16:23 16:26 16:39 Wound Center Nurse 2 #3 Left Ellison -Time 16:23 16:26 16:40 -Correct Patient Yes Yes Yes -Correct Side, Site, Position Yes Yes Yes -Correct Procedure Yes Yes Yes -Procedure Performed Yes Yes Yes -Type of Procedure Debridement Debridement Debridement -Clinical Debridement Subcutaneous Subcutaneous Subcutaneous -Post Debridement Size (cm) - Length 1.7 3 2.1 -Post Debridement Size (cm) - Width 2 2.6 2.2 -Post Debridement Size (cm) - Depth 0.1 0.1 0.1 -Total Square Cm 3.4 7.8 4.62 -Wound/Ulcer Outcome Not Healed Not Healed Not Healed -Ulcer Cleansing Rinsed/ Rinsed/ Rinsed/ Irrigated with Irrigated with Irrigated with Saline Saline Saline -Foul Odor after Cleansing No No No -Bioengineered Tissue Yes No No -Type of bioengineered Tissue EPIFIX -Expiration Date 03/31/22 -Product Lot Number [id number] -Percent Used 100 -Bleeding Controlled with Pressure Pressure Pressure -Treatment Response Procedure Procedure Procedure Tolerated Well Tolerated Well Tolerated Well Pain Scale: 0-10 Numeric Is Patient Pain Free? Yes Yes Yes Wound debrided: leg Laterality: Left Type of Debridement: Excisional debridement Anesthesia Used: 5% Lidocaine Gel Depth: in the subcutaneous layer Percentage of wound debrided: 100 Instrument Used: #15 blade Tissue Removed: fibrous, devitalized subcutaneous, biofilm, slough Severity: Fat Layer Exposed Amount of bleeding with debridement: Mild Bleeding Controlled with: Pressure Patient tolerated procedure well Assessment/Plan Active Problems Non-compliance (Chronic) Lymphedema (Chronic) Delayed wound healing (Chronic) Localized edema (Chronic) Venous insufficiency of left leg (Chronic) Chronic ulcer of left lower extremity with fat layer exposed (Chronic) Assessment: Chronic and recurrent ulcer to the left ellison - improved quality. Venous insufficiency left lower extremity. non compliance. delayed healing Plan: I reviewed and discussed the case with the patient today. The ulcer site was debrided subcutaneously as noted in the clinical panel. She has completed a full course of epi fix. [place] was applied; to change every 1-2 days. An additional compression dressing, 3M2L was applied. She did well with this last week. Compliance was reiterated today. A previous prescription for CircAid compression wraps provided. She is anticipating a voucher for coverage and the [employer] will be contacted to see what the next step is. She was advised to be on alert to receive the phone calls to help this move forward forward. . To resume nutritional supplementation to optimize healing. To avoid idle standing and sitting to help reduce fluid collection in the lower extremities. Dr. Barnes suggested Lasix and management per Dr. Barnes will be encouraged. She was reassured no signs of infection noted today. To monitor. . There is no deep venous thrombosis noted in her recent venous Doppler. There is some venous reflux noted at some of the lower extremity sites. To follow-up with Dr. Bella. He recommended improving compliance with compression dressings with 30-40 mmHg for the next 1-2 months. If delays in healing are noted he recommend following up in the clinical setting to see if additional intervention is appropriate. Teresa is amenable to this plan. Her CBC and CMP were reviewed. No leukocytosis is noted. Her albumin levels 3.6. To return to clinic in 1 week at the wound care center or call sooner if questions or concerns. I answered all of her questions today.
--- NOTE | 2017-08-20 16:56 | PN.PCM_ITS ---
(1) Chronic ulcer of left lower extremity with fat layer exposed Status: Chronic Current Visit: Yes Code(s): L97.922 - Non-pressure chronic ulcer of unspecified part of left lower leg with fat layer exposed (2) Lymphedema Status: Chronic Current Visit: Yes Code(s): I89.0 - Lymphedema, not elsewhere classified (3) Non-compliance Status: Chronic Current Visit: Yes Code(s): Z91.19 - Patient's noncompliance with other medical treatment and regimen (4) Delayed wound healing Status: Chronic Current Visit: Yes Code(s): T14.8 - Other injury of unspecified body region (5) Localized edema Status: Chronic Current Visit: Yes Code(s): R60.0 - Localized edema (6) Venous insufficiency of left leg Status: Chronic Current Visit: Yes Code(s): I87.2 - Venous insufficiency ( chronic) (peripheral) Type of Wound Date of Service: 08/20/17 Chief Complaint: Chronic ulcer to the left lower extremity History of Wound: This 61 year old patient returns to the wound healing center for follow up of her chronic ulcer to her left ellison. She has continued bilateral lower extremity edema this is decreased the past week with her multilayer compression dressing. She had venous ablation procedure performed with . She did complete the paperwork to apply for CircAid compression dressing [employer]. She was notified that this has been approved however she has not received the devices yet. She reports she will call to follow-up on what she needs to do next. She denies fever, chill, nausea , vomiting, calf pain, or shortness of breath, or wound redness or odor. Progress of Wound: Improved - Physical Exam Vital Signs Temp Pulse Resp BP 96.8 F L 64 18 142/67 H 08/20/17 15:52 08/20/17 15:52 08/20/17 15:52 08/20/17 15:52 General: Alert, Oriented x3, Cooperative Extremities: No cyanosis, Capillary Refill Less than 3 Seconds, No Calf Tenderness, Diminished Peripheral Pulses, Edema Skin: Ulcer/ Wound - No purulence, erythema, streaking, odor, no infection, no eschar to the leg. Improved granulation tissues noted. The peripheral skin is atrophic. Wound Measurements and Assessment WC - Nurse 1 - General Ulcer Measurement Start: 07/30/17 15:55 Freq: Status: Active Protocol: Activity Type Activity Date Activity User E-Sign Co-Sign Detail Recorded Client Recorded Date Recorded By Document 08/20/17 15:52 RB [id number] 08/20/17 16:00 RB 08/20/17 15:52 Wound Center Nurse 1 [Ulcer Assessment] #3 Left Ellison -Combined with other wound No -Current Size (cm) - Length 2 -Current Size (cm) - Width 2.2 -Current Size (cm) - Depth 0.1 -Total Square Cm 4.4 -Photo Taken No -Epithelialization Small 1-33% -Tunneling No -Undermining/Tunneling No -Circular Undermining No -Classification - Thickness Full Thickness without Exposed Support Structure -Exudate Amt Small (1-33%) -Exudate Type Serosanguineous -Wound Margin Distinct, Outline Attached -Granulation Amt Large (67-100%) -Granulation Quality N/A Red -Necrosis Amt Small (1-33%) -Necrotic Tissue Type Adherent Slough -Structure Exposed N/A -Texture (Jenny-wound Skin Appearance) Assessed -Moisture (Jenny-wound Skin Appearance Assessed ) -Color (Jenny-wound Skin Appearance) Hemosiderin Staining -Temperature (Jenny-wound Skin No Abnormality Appearance) (Pt Warm) -Tenderness on Palpation (Jenny-wound No Skin Appearance) -Ulcer Cleansing Wound Cleanser -Foul Odor after Cleansing No -Anesthetic Used 5% Lidocaine Gel [Edema Assessment] -Lower Limb Edema Present Yes -Left Calf (cm) 44 -Left Ankle (cm) 27.6 WC - Nurse 2 - General Ulcer CM Notes Start: 07/30/17 15:55 Freq: Status: Active Protocol: Activity Type Activity Date Activity User E-Sign Co-Sign Detail Recorded Client Recorded Date Recorded By Document 08/20/17 16:39 [id number] 08/20/17 16:40 08/20/17 16:39 Wound Center Nurse 2 [Procedure/Treatment] #3 Left Ellison -Time 16:40 -Correct Patient Yes -Correct Side, Site, Position Yes -Correct Procedure Yes -Procedure Performed Yes -Type of Procedure Debridement -Clinical Debridement Subcutaneous -Post Debridement Size (cm) - Length 2.1 -Post Debridement Size (cm) - Width 2.2 -Post Debridement Size (cm) - Depth 0.1 -Total Square Cm 4.62 -Wound/Ulcer Outcome Not Healed -Ulcer Cleansing Rinsed/ Irrigated with Saline -Foul Odor after Cleansing No -Bioengineered Tissue No -Bleeding Controlled with Pressure -Treatment Response Procedure Tolerated Well [See Physician Procedure note for Specifics] Pain Scale: 0-10 Numeric [Pain] -Is Patient Pain Free? Yes Musculoskeletal: No Tenderness to Palpation of Joints or Extremities, Muscle Wasting, - - Compartment leg soft Neurological: - - Lack of epicritic sensation light touch Psych/Mental Status: Normal Affect, Appropriate Debridement Note Post-Debridement Measurements/Treatment WC - Nurse 2 - General Ulcer CM Notes Start: 07/30/17 15:55 Freq: Status: Active Protocol: Activity Type Activity Date Activity User E-Sign Co-Sign Detail Recorded Client Recorded Date Recorded By Document 07/30/17 16:23 [id number] 07/30/17 16:25 Document 08/13/17 16:26 [id number] 08/13/17 16:26 Document 08/20/17 16:39 [id number] 08/20/17 16:40 07/30/17 08/13/17 08/20/17 16:23 16:26 16:39 Wound Center Nurse 2 #3 Left Ellison -Time 16:23 16:26 16:40 -Correct Patient Yes Yes Yes -Correct Side, Site, Position Yes Yes Yes -Correct Procedure Yes Yes Yes -Procedure Performed Yes Yes Yes -Type of Procedure Debridement Debridement Debridement -Clinical Debridement Subcutaneous Subcutaneous Subcutaneous -Post Debridement Size (cm) - Length 1.7 3 2.1 -Post Debridement Size (cm) - Width 2 2.6 2.2 -Post Debridement Size (cm) - Depth 0.1 0.1 0.1 -Total Square Cm 3.4 7.8 4.62 -Wound/Ulcer Outcome Not Healed Not Healed Not Healed -Ulcer Cleansing Rinsed/ Rinsed/ Rinsed/ Irrigated with Irrigated with Irrigated with Saline Saline Saline -Foul Odor after Cleansing No No No -Bioengineered Tissue Yes No No -Type of bioengineered Tissue EPIFIX -Expiration Date 03/31/22 -Product Lot Number [id number] -Percent Used 100 -Bleeding Controlled with Pressure Pressure Pressure -Treatment Response Procedure Procedure Procedure Tolerated Well Tolerated Well Tolerated Well Pain Scale: 0-10 Numeric Is Patient Pain Free? Yes Yes Yes Wound debrided: leg Laterality: Left Type of Debridement: Excisional debridement Anesthesia Used: 5% Lidocaine Gel Depth: in the subcutaneous layer Percentage of wound debrided: 100 Instrument Used: #15 blade Tissue Removed: fibrous, devitalized subcutaneous, biofilm, slough Severity: Fat Layer Exposed Amount of bleeding with debridement: Mild Bleeding Controlled with: Pressure Patient tolerated procedure well Assessment/Plan Active Problems Non-compliance (Chronic) Lymphedema (Chronic) Delayed wound healing (Chronic) Localized edema (Chronic) Venous insufficiency of left leg (Chronic) Chronic ulcer of left lower extremity with fat layer exposed (Chronic) Assessment: Chronic and recurrent ulcer to the left ellison - improved quality. Venous insufficiency left lower extremity. non compliance. delayed healing Plan: I reviewed and discussed the case with the patient today. The ulcer site was debrided subcutaneously as noted in the clinical panel. She has completed a full course of epi fix. [place] was applied; to change every 1-2 days. An additional compression dressing, 3M2L was applied. She did well with this last week. Compliance was reiterated today. A previous prescription for CircAid compression wraps provided. She is anticipating a voucher for coverage and the [employer] will be contacted to see what the next step is. She was advised to be on alert to receive the phone calls to help this move forward forward. . To resume nutritional supplementation to optimize healing. To avoid idle standing and sitting to help reduce fluid collection in the lower extremities. Dr. Barnes suggested Lasix and management per Dr. Barnes will be encouraged. She was reassured no signs of infection noted today. To monitor. . There is no deep venous thrombosis noted in her recent venous Doppler. There is some venous reflux noted at some of the lower extremity sites. To follow-up with Dr. Bella. He recommended improving compliance with compression dressings with 30-40 mmHg for the next 1-2 months. If delays in healing are noted he recommend following up in the clinical setting to see if additional intervention is appropriate. Teresa is amenable to this plan. Her CBC and CMP were reviewed. No leukocytosis is noted. Her albumin levels 3.6. To return to clinic in 1 week at the wound care center or call sooner if questions or concerns. I answered all of her questions today.
[2017-08-27 16:09] VITALS: BP 130/70; PULSE 70; RESP 18; TEMP 36.6
--- NOTE | 2017-08-27 16:54 | PN.PCM_ITS ---
(1) Chronic ulcer of left lower extremity with fat layer exposed Status: Chronic Current Visit: Yes Code(s): L97.922 - Non-pressure chronic ulcer of unspecified part of left lower leg with fat layer exposed (2) Lymphedema Status: Chronic Current Visit: Yes Code(s): I89.0 - Lymphedema, not elsewhere classified (3) Non-compliance Status: Chronic Current Visit: Yes Code(s): Z91.19 - Patient's noncompliance with other medical treatment and regimen (4) Delayed wound healing Status: Chronic Current Visit: Yes Code(s): T14.8 - Other injury of unspecified body region (5) Localized edema Status: Chronic Current Visit: Yes Code(s): R60.0 - Localized edema (6) Venous insufficiency of left leg Status: Chronic Current Visit: Yes Code(s): I87.2 - Venous insufficiency ( chronic) (peripheral) Type of Wound Date of Service: 08/28/17 Chief Complaint: Chronic ulcer to the left lower extremity History of Wound: This 61 year old patient returns to the wound healing center for follow up of her chronic ulcer to her left gutierrez. She has continued bilateral lower extremity edema this is decreased the past week with her multilayer compression dressing. She had venous ablation procedure performed with . She did complete obtain a CircAid compression garment. She denies fever, chill, nausea, vomiting, calf pain, or shortness of breath, or wound redness or odor. Progress of Wound: Improved - Physical Exam Vital Signs Temp Pulse Resp BP 97.8 F 70 18 130/70 H 08/27/17 16:09 08/27/17 16:09 08/27/17 16:09 08/27/17 16:09 General: Alert, Oriented x3, Cooperative Extremities: No cyanosis, Capillary Refill Less than 3 Seconds, No Calf Tenderness - Negative Castillo left, Diminished Peripheral Pulses, Edema Skin: Ulcer/ Wound - No purulence, no erythema, streaking, no odor, no infection left. Peripheral skin is atrophic. Wound bed is granular Wound Measurements and Assessment WC - Nurse 1 - General Ulcer Measurement Start: 07/30/17 15:55 Freq: Status: Active Protocol: Activity Type Activity Date Activity User E-Sign Co-Sign Detail Recorded Client Recorded Date Recorded By Document 08/27/17 16:09 RB [id number] 08/27/17 16:11 RB 08/27/17 16:09 Wound Center Nurse 1 [Ulcer Assessment] #3 Left Gutierrez -Combined with other wound No -Current Size (cm) - Length 2 -Current Size (cm) - Width 2 -Current Size (cm) - Depth 0.1 -Total Square Cm 4 -Photo Taken No -Tunneling No -Undermining/Tunneling No -Circular Undermining No -Classification - Thickness Full Thickness without Exposed Support Structure -Exudate Amt Small (1-33%) -Exudate Type Serosanguineous -Wound Margin Distinct, Outline Attached -Granulation Amt Large (67-100%) -Granulation Quality Red -Slough/Fibrin Yes -Necrosis Amt Small (1-33%) -Necrotic Tissue Type Adherent Slough -Structure Exposed N/A -Texture (Jenny-wound Skin Appearance) Assessed -Moisture (Jenny-wound Skin Appearance Assessed ) -Color (Jenny-wound Skin Appearance) Assessed -Temperature (Jenny-wound Skin No Abnormality Appearance) (Pt Warm) -Tenderness on Palpation (Jenny-wound No Skin Appearance) -Ulcer Cleansing Rinsed/ Irrigated with Saline -Foul Odor after Cleansing No -Anesthetic Used 5% Lidocaine Gel [Edema Assessment] -Lower Limb Edema Present Yes -Left Calf (cm) 49.5 -Left Ankle (cm) 27 WC - Nurse 2 - General Ulcer CM Notes Start: 07/30/17 15:55 Freq: Status: Active Protocol: Activity Type Activity Date Activity User E-Sign Co-Sign Detail Recorded Client Recorded Date Recorded By Document 08/27/17 16:19 [id number] 08/27/17 16:20 08/27/17 16:19 Wound Center Nurse 2 [Procedure/Treatment] #3 Left Gutierrez -Time 16:20 -Correct Patient Yes -Correct Side, Site, Position Yes -Correct Procedure Yes -Procedure Performed Yes -Type of Procedure Debridement -Clinical Debridement Subcutaneous -Post Debridement Size (cm) - Length 2.1 -Post Debridement Size (cm) - Width 2.0 -Post Debridement Size (cm) - Depth 0.1 -Total Square Cm 4.20 -Wound/Ulcer Outcome Not Healed -Ulcer Cleansing Rinsed/ Irrigated with Saline -Foul Odor after Cleansing No -Bioengineered Tissue No -Bleeding Controlled with Pressure -Treatment Response Procedure Tolerated Well [See Physician Procedure note for Specifics] Pain Scale: 0-10 Numeric [Pain] -Is Patient Pain Free? Yes Musculoskeletal: No Tenderness to Palpation of Joints or Extremities, Muscle Wasting Neurological: - - Lack of sensation to wound manipulation be a light touch Psych/Mental Status: Normal Affect, Appropriate Debridement Note Post-Debridement Measurements/Treatment WC - Nurse 2 - General Ulcer CM Notes Start: 07/30/17 15:55 Freq: Status: Active Protocol: Activity Type Activity Date Activity User E-Sign Co-Sign Detail Recorded Client Recorded Date Recorded By Document 07/30/17 16:23 [id number] 07/30/17 16:25 Document 08/13/17 16:26 [id number] 08/13/17 16:26 Document 08/20/17 16:39 [id number] 08/20/17 16:40 Document 08/27/17 16:19 [id number] 08/27/17 16:20 07/30/17 08/13/17 08/20/17 16:23 16:26 16:39 Wound Center Nurse 2 #3 Left Gutierrez -Time 16:23 16:26 16:40 -Correct Patient Yes Yes Yes -Correct Side, Site, Position Yes Yes Yes -Correct Procedure Yes Yes Yes -Procedure Performed Yes Yes Yes -Type of Procedure Debridement Debridement Debridement -Clinical Debridement Subcutaneous Subcutaneous Subcutaneous -Post Debridement Size (cm) - Length 1.7 3 2.1 -Post Debridement Size (cm) - Width 2 2.6 2.2 -Post Debridement Size (cm) - Depth 0.1 0.1 0.1 -Total Square Cm 3.4 7.8 4.62 -Wound/Ulcer Outcome Not Healed Not Healed Not Healed -Ulcer Cleansing Rinsed/ Rinsed/ Rinsed/ Irrigated with Irrigated with Irrigated with Saline Saline Saline -Foul Odor after Cleansing No No No -Bioengineered Tissue Yes No No -Type of bioengineered Tissue EPIFIX -Expiration Date 03/31/22 -Product Lot Number [id number] -Percent Used 100 -Bleeding Controlled with Pressure Pressure Pressure -Treatment Response Procedure Procedure Procedure Tolerated Well Tolerated Well Tolerated Well Pain Scale: 0-10 Numeric Is Patient Pain Free? Yes Yes Yes 08/27/17 16:19 Wound Center Nurse 2 #3 Left Gutierrez -Time 16:20 -Correct Patient Yes -Correct Side, Site, Position Yes -Correct Procedure Yes -Procedure Performed Yes -Type of Procedure Debridement -Clinical Debridement Subcutaneous -Post Debridement Size (cm) - Length 2.1 -Post Debridement Size (cm) - Width 2.0 -Post Debridement Size (cm) - Depth 0.1 -Total Square Cm 4.20 -Wound/Ulcer Outcome Not Healed -Ulcer Cleansing Rinsed/ Irrigated with Saline -Foul Odor after Cleansing No -Bioengineered Tissue No -Type of bioengineered Tissue -Expiration Date -Product Lot Number -Percent Used -Bleeding Controlled with Pressure -Treatment Response Procedure Tolerated Well Pain Scale: 0-10 Numeric Is Patient Pain Free? Yes Wound debrided: leg Laterality: Left Type of Debridement: Excisional debridement Anesthesia Used: 5% Lidocaine Gel Depth: in the subcutaneous layer Percentage of wound debrided: 100 Instrument Used: #15 blade Tissue Removed: fibrous, devitalized subcutaneous, biofilm, slough Severity: Fat Layer Exposed Amount of bleeding with debridement: Mild Bleeding Controlled with: Pressure Patient tolerated procedure well Assessment/Plan Active Problems Non-compliance (Chronic) Lymphedema (Chronic) Delayed wound healing (Chronic) Localized edema (Chronic) Venous insufficiency of left leg (Chronic) Chronic ulcer of left lower extremity with fat layer exposed (Chronic) Assessment: Chronic and recurrent ulcer to the left gutierrez - improved quality. Venous insufficiency left lower extremity. non compliance. delayed healing Plan: I reviewed and discussed the case with the patient today. The ulcer site was debrided subcutaneously as noted in the clinical panel. She has completed a full course of epi fix. [place] was applied; to change every 1-2 days. An additional compression dressing, 3M2L was applied. She did well with this last week. Compliance was reiterated today. A previous prescription for CircAid compression wraps provided and she received this today. She is amenable to receiving education on how to properly apply these which was performed today. . To resume nutritional supplementation to optimize healing. To avoid idle standing and sitting to help reduce fluid collection in the lower extremities. Dr. Barnes suggested Lasix and management per Dr. Barnes will be encouraged. She was reassured no signs of infection noted today. To monitor. . There is no deep venous thrombosis noted in her recent venous Doppler. There is some venous reflux noted at some of the lower extremity sites. To follow-up with Dr. Bella. He recommended improving compliance with compression dressings with 30-40 mmHg. If delays in healing are noted he recommend following up in the clinical setting to see if additional intervention is appropriate. Teresa is amenable to this plan. Her CBC and CMP were reviewed. No leukocytosis is noted. Her albumin levels 3.6. To return to clinic in 1 week at the wound care center or call sooner if questions or concerns. I answered all of her questions today.
== END 2017-08-28 23:59 ==
LOC: WC 16:00
PROVIDERS: Family Provider Internal Medicine; PCP Internal Medicine; Visit Provider Podiatrist
DX: L97.922 Non-pressure chronic ulcer of unspecified part of left lower leg with fat layer exposed (principal); I89.0 Lymphedema, not elsewhere classified; Z91.19 Patient's noncompliance with other medical treatment and regimen; R60.0 Localized edema; I87.2 Venous insufficiency (chronic) (peripheral)
CPT/HCPCS: 11042; 15271; 29581; Q4131

== ENCOUNTER 2017-09-24 16:00 | Outpatient (RCR) | payer MEDICAID, SELFPAY ==
[2017-08-29 00:28] VITALS: BP 130/70; PULSE 70; RESP 18; TEMP 36.6
[2017-09-10 16:02] VITALS: BP 140/76; PULSE 68; RESP 16; TEMP 36.6
--- NOTE | 2017-09-10 16:54 | PN.PCM_ITS ---
(1) Chronic ulcer of left lower extremity with fat layer exposed Status: Chronic Current Visit: Yes Code(s): L97.922 - Non-pressure chronic ulcer of unspecified part of left lower leg with fat layer exposed (2) Non-compliance Status: Chronic Current Visit: Yes Code(s): Z91.19 - Patient's noncompliance with other medical treatment and regimen (3) Lymphedema Status: Chronic Current Visit: Yes Code(s): I89.0 - Lymphedema, not elsewhere classified (4) Delayed wound healing Status: Chronic Current Visit: Yes Code(s): T14.8 - Other injury of unspecified body region (5) Localized edema Status: Chronic Current Visit: Yes Code(s): R60.0 - Localized edema (6) Venous insufficiency of left leg Status: Chronic Current Visit: Yes Code(s): I87.2 - Venous insufficiency ( chronic) (peripheral) Type of Wound Date of Service: 09/10/17 Chief Complaint: Chronic ulcer to the left lower extremity History of Wound: This 61 year old patient returns to the wound healing center for follow up of her chronic ulcer to her left gutierrez. She has continued bilateral lower extremity edema this is decreased the past week with her multilayer compression dressing. She had venous ablation procedure performed with . She did complete obtain a CircAid compression garment. She denies fever, chill, nausea, vomiting, calf pain, or shortness of breath, or wound redness or odor. She reports the wound has increased in size. She denies trauma this past 2 weeks. Progress of Wound: Worsening status - Physical Exam Vital Signs Temp Pulse Resp BP 98 F 68 16 140/76 H 09/10/17 16:02 09/10/17 16:02 09/10/17 16:02 09/10/17 16:02 General: Alert, Oriented x3, Cooperative Extremities: No cyanosis, Capillary Refill Less than 3 Seconds, No Calf Tenderness - Negative Italo and Castillo left, Diminished Peripheral Pulses, Edema Skin: Ulcer/ Wound - No purulence, no erythema, streaking, odor, no acute signs of infection left lower extremity. The wound bed is 100% beefy red granulation tissue. There is a new wound proximal lateral to the original wound site. There is no exposed deep tissue. The peripheral skin is atrophic. Wound Measurements and Assessment WC - Nurse 1 - General Ulcer Measurement Start: 09/10/17 16:02 Freq: Status: Active Protocol: Activity Type Activity Date Activity User E-Sign Co-Sign Detail Recorded Client Recorded Date Recorded By Document 09/10/17 16:02 [email or web address] [id number] 09/10/17 16:07 DL 09/10/17 16:02 Wound Center Nurse 1 [Ulcer Assessment] #3 Left Gutierrez -Current Size (cm) - Length 6.2 -Current Size (cm) - Width 4 -Current Size (cm) - Depth 0.1 -Total Square Cm 24.8 -Photo Taken No -Exudate Amt Small (1-33%) -Exudate Type Serosanguineous -Wound Margin Distinct, Outline Attached -Granulation Amt Large (67-100%) -Granulation Quality Red -Necrosis Amt Small (1-33%) -Necrotic Tissue Type Adherent Slough -Structure Exposed N/A -Texture (Jenny-wound Skin Appearance) Scarring -Moisture (Jenny-wound Skin Appearance Dry/Scaly ) -Color (Jenny-wound Skin Appearance) Hemosiderin Staining -Temperature (Jenny-wound Skin No Abnormality Appearance) (Pt Warm) -Ulcer Cleansing Wound Cleanser -Foul Odor after Cleansing No -Anesthetic Used 4% Lidocaine Solution [Edema Assessment] -Right Calf (cm) 52.8 -Right Ankle (cm) 32.1 -Left Calf (cm) 53.2 -Left Ankle (cm) 32.5 - Nurse 2 - General Ulcer CM Notes Start: 09/10/17 16:02 Freq: Status: Active Protocol: Activity Type Activity Date Activity User E-Sign Co-Sign Detail Recorded Client Recorded Date Recorded By Document 09/10/17 16:35 JEFF [id number] 09/10/17 16:36 JEFF 09/10/17 16:35 Wound Center Nurse 2 [Procedure/Treatment] #3 Left Gutierrez -Time 16:35 -Correct Patient Yes -Correct Side, Site, Position Yes -Correct Procedure Yes -Procedure Performed Yes -Type of Procedure Debridement -Clinical Debridement Subcutaneous -Post Debridement Size (cm) - Length 6.3 -Post Debridement Size (cm) - Width 4 -Post Debridement Size (cm) - Depth 0.1 -Total Square Cm 25.2 -Wound/Ulcer Outcome Not Healed -Ulcer Cleansing Rinsed/ Irrigated with Saline -Foul Odor after Cleansing No -Bioengineered Tissue No -Bleeding Controlled with Pressure -Treatment Response Procedure Tolerated Well [See Physician Procedure note for Specifics] Pain Scale: 0-10 Numeric [Pain] -Is Patient Pain Free? Yes Musculoskeletal: No Tenderness to Palpation of Joints or Extremities, Muscle Wasting, - - Compartments left lower extremity remain soft Neurological: - - Altered sensation light touch left wound manipulation and limb Psych/Mental Status: Normal Affect, Appropriate Debridement Note Post-Debridement Measurements/Treatment WC - Nurse 2 - General Ulcer CM Notes Start: 09/10/17 16:02 Freq: Status: Active Protocol: Activity Type Activity Date Activity User E-Sign Co-Sign Detail Recorded Client Recorded Date Recorded By Document 09/10/17 16:35 [id number] 09/10/17 16:36 JEFF 09/10/17 16:35 Wound Center Nurse 2 #3 Left Gutierrez -Time 16:35 -Correct Patient Yes -Correct Side, Site, Position Yes -Correct Procedure Yes -Procedure Performed Yes -Type of Procedure Debridement -Clinical Debridement Subcutaneous -Post Debridement Size (cm) - Length 6.3 -Post Debridement Size (cm) - Width 4 -Post Debridement Size (cm) - Depth 0.1 -Total Square Cm 25.2 -Wound/Ulcer Outcome Not Healed -Ulcer Cleansing Rinsed/ Irrigated with Saline -Foul Odor after Cleansing No -Bioengineered Tissue No -Bleeding Controlled with Pressure -Treatment Response Procedure Tolerated Well Pain Scale: 0-10 Numeric Is Patient Pain Free? Yes Wound debrided: leg Laterality: Left Type of Debridement: Excisional debridement Anesthesia Used: 5% Lidocaine Gel Depth: in the subcutaneous layer Percentage of wound debrided: 100 Instrument Used: #15 blade Tissue Removed: fibrous, devitalized subcutaneous, biofilm, slough Severity: Fat Layer Exposed Amount of bleeding with debridement: Mild Bleeding Controlled with: Pressure Patient tolerated procedure well Assessment/Plan Active Problems Non-compliance (Chronic) Lymphedema (Chronic) Delayed wound healing (Chronic) Localized edema (Chronic) Venous insufficiency of left leg (Chronic) Chronic ulcer of left lower extremity with fat layer exposed (Chronic) Assessment: Chronic and recurrent ulcer to the left gutierrez -recent increase in size. Venous insufficiency left lower extremity. non compliance. delayed healing Plan: I reviewed and discussed the case with the patient today. The ulcer site was debrided subcutaneously as noted in the clinical panel. She has completed a full course of epi fix. [place] was applied; to change every 1-2 days. An additional compression dressing, bilateral CircAid was applied. She did well with this last week. Compliance was reiterated today. She demonstrates application knowledge. . To resume nutritional supplementation to optimize healing. To avoid idle standing and sitting to help reduce fluid collection in the lower extremities. Dr. Barnes suggested Lasix and management per Dr. Barnes will be encouraged. She was reassured no signs of infection noted today. To monitor. . There is no deep venous thrombosis noted in her recent venous Doppler. There is some venous reflux noted at some of the lower extremity sites. To follow-up with Dr. Bella. He recommended improving compliance with compression dressings with 30-40 mmHg. At this time delays in healing her parents and I recommend proceeding with vascular surgery referral reinitiation. She would like to see a physician that is in the [place] area and a referral was provided to see Dr. Machado. Her CBC and CMP were reviewed. No leukocytosis is noted. Her albumin levels 3.6. To return to clinic in 1 week at the wound care center or call sooner if questions or concerns. I answered all of her questions today.
[2017-09-17 15:59] VITALS: BP 124/64; PULSE 64; RESP 18; TEMP 36.3
--- NOTE | 2017-09-17 17:41 | PN.PCM_ITS ---
(1) Chronic ulcer of left lower extremity with fat layer exposed Status: Chronic Current Visit: Yes Code(s): L97.922 - Non-pressure chronic ulcer of unspecified part of left lower leg with fat layer exposed (2) Non-compliance Status: Chronic Current Visit: Yes Code(s): Z91.19 - Patient's noncompliance with other medical treatment and regimen (3) Lymphedema Status: Chronic Current Visit: Yes Code(s): I89.0 - Lymphedema, not elsewhere classified (4) Delayed wound healing Status: Chronic Current Visit: Yes Code(s): T14.8 - Other injury of unspecified body region (5) Localized edema Status: Chronic Current Visit: Yes Code(s): R60.0 - Localized edema (6) Venous insufficiency of left leg Status: Chronic Current Visit: Yes Code(s): I87.2 - Venous insufficiency ( chronic) (peripheral) Type of Wound Date of Service: 09/17/17 Chief Complaint: Chronic ulcer to the left lower extremity History of Wound: This 62 year old patient returns to the wound healing center for follow up of her chronic ulcer to her left gutierrez. She has continued bilateral lower extremity edema this is decreased the past week with her multilayer compression dressing. She had venous ablation procedure performed with . She is no longer able to follow-up with his physician. She has scheduled a consultation with Dr. Machado for October 29, 2017 to see if additional intervention is an option. She did complete obtain a CircAid compression garment. She denies fever, chill, nausea, vomiting, calf pain, or shortness of breath, or wound redness or odor. Progress of Wound: Improving - Physical Exam Vital Signs Temp Pulse Resp BP 97.4 F L 64 18 124/64 H 09/17/17 15:59 09/17/17 15:59 09/17/17 15:59 09/17/17 15:59 General: Alert, Oriented x3, Cooperative Extremities: No cyanosis, Capillary Refill Less than 3 Seconds, No Calf Tenderness, Diminished Peripheral Pulses, Edema Skin: Ulcer/ Wound - No purulence, erythema, streaking, no odor, no infection. Wound bed is granular. There is minor hyperpigmentation around the wound. Skin is atrophic. Wound Measurements and Assessment WC - Nurse 1 - General Ulcer Measurement Start: 09/10/17 16:02 Freq: Status: Active Protocol: Activity Type Activity Date Activity User E-Sign Co-Sign Detail Recorded Client Recorded Date Recorded By Document 09/17/17 15:59 DL [id number] 09/17/17 16:01 DL 09/17/17 15:59 Wound Center Nurse 1 [Ulcer Assessment] #3 Left Gutierrez -Current Size (cm) - Length 6.1 -Current Size (cm) - Width 3.3 -Current Size (cm) - Depth 0.1 -Total Square Cm 20.13 -Photo Taken No -Exudate Amt Small (1-33%) -Exudate Type Serosanguineous -Wound Margin Distinct, Outline Attached -Granulation Amt Large (67-100%) -Granulation Quality Red -Necrosis Amt Small (1-33%) -Necrotic Tissue Type Adherent Slough -Structure Exposed N/A -Texture (Jenny-wound Skin Appearance) Scarring -Moisture (Jenny-wound Skin Appearance Dry/Scaly ) -Color (Jenny-wound Skin Appearance) Hemosiderin Staining -Temperature (Jenny-wound Skin No Abnormality Appearance) (Pt Warm) -Ulcer Cleansing Wound Cleanser -Foul Odor after Cleansing No -Anesthetic Used 4% Lidocaine Solution [Edema Assessment] -Left Calf (cm) 51 -Left Ankle (cm) 28 WC - Nurse 2 - General Ulcer CM Notes Start: 09/10/17 16:02 Freq: Status: Active Protocol: Activity Type Activity Date Activity User E-Sign Co-Sign Detail Recorded Client Recorded Date Recorded By Document 09/17/17 16:59 [id number] 09/17/17 17:03 09/17/17 16:59 Wound Center Nurse 2 [Procedure/Treatment] #3 Left Gutierrez -Time 16:59 -Correct Patient Yes -Correct Side, Site, Position Yes -Correct Procedure Yes -Procedure Performed Yes -Type of Procedure Debridement -Clinical Debridement Subcutaneous -Post Debridement Size (cm) - Length 6.2 -Post Debridement Size (cm) - Width 3.3 -Post Debridement Size (cm) - Depth 0.1 -Total Square Cm 20.46 -Wound/Ulcer Outcome Not Healed -Ulcer Cleansing Rinsed/ Irrigated with Saline -Foul Odor after Cleansing No -Bioengineered Tissue No -Bleeding Controlled with Pressure -Treatment Response Procedure Tolerated Well [See Physician Procedure note for Specifics] Pain Scale: 0-10 Numeric [Pain] -Is Patient Pain Free? Yes Musculoskeletal: No Tenderness to Palpation of Joints or Extremities, Muscle Wasting Neurological: - - Lack of epicritic sensation to light touch periwound left leg Psych/Mental Status: Normal Affect, Appropriate Debridement Note Post-Debridement Measurements/Treatment WC - Nurse 2 - General Ulcer CM Notes Start: 09/10/17 16:02 Freq: Status: Active Protocol: Activity Type Activity Date Activity User E-Sign Co-Sign Detail Recorded Client Recorded Date Recorded By Document 09/10/17 16:35 [id number] 09/10/17 16:36 Document 09/17/17 16:59 [id number] 09/17/17 17:03 09/10/17 09/17/17 16:35 16:59 Wound Center Nurse 2 #3 Left Gutierrez -Time 16:35 16:59 -Correct Patient Yes Yes -Correct Side, Site, Position Yes Yes -Correct Procedure Yes Yes -Procedure Performed Yes Yes -Type of Procedure Debridement Debridement -Clinical Debridement Subcutaneous Subcutaneous -Post Debridement Size (cm) - Length 6.3 6.2 -Post Debridement Size (cm) - Width 4 3.3 -Post Debridement Size (cm) - Depth 0.1 0.1 -Total Square Cm 25.2 20.46 -Wound/Ulcer Outcome Not Healed Not Healed -Ulcer Cleansing Rinsed/ Rinsed/ Irrigated with Irrigated with Saline Saline -Foul Odor after Cleansing No No -Bioengineered Tissue No No -Bleeding Controlled with Pressure Pressure -Treatment Response Procedure Procedure Tolerated Well Tolerated Well Pain Scale: 0-10 Numeric Is Patient Pain Free? Yes Yes Wound debrided: leg cluster Laterality: Left Type of Debridement: Excisional debridement Anesthesia Used: 5% Lidocaine Gel Depth: in the subcutaneous layer Percentage of wound debrided: 100 Instrument Used: #15 blade Tissue Removed: fibrous, devitalized subcutaneous, biofilm, slough Severity: Fat Layer Exposed Amount of bleeding with debridement: Mild Bleeding Controlled with: Pressure Patient tolerated procedure well Assessment/Plan Active Problems Non-compliance (Chronic) Lymphedema (Chronic) Delayed wound healing (Chronic) Localized edema (Chronic) Venous insufficiency of left leg (Chronic) Chronic ulcer of left lower extremity with fat layer exposed (Chronic) Assessment: Chronic and recurrent ulcer to the left gutierrez - stable. Venous insufficiency left lower extremity. non compliance. delayed healing Plan: I reviewed and discussed the case with the patient today. The ulcer site was debrided subcutaneously as noted in the clinical panel. She has completed a full course of epi fix. [place] was applied; to change every 1-2 days. An additional compression dressing, bilateral CircAid was applied. She did well with this last week. Compliance was reiterated today. She demonstrates application knowledge. . To resume nutritional supplementation to optimize healing. To avoid idle standing and sitting to help reduce fluid collection in the lower extremities. Dr. Barnes suggested Lasix and management per Dr. Barnes will be encouraged. She was reassured no signs of infection noted today. To monitor. . There is no deep venous thrombosis noted in her recent venous Doppler. There is some venous reflux noted at some of the lower extremity sites. To follow-up with Dr. Bella. He recommended improving compliance with compression dressings with 30-40 mmHg. At this time delays in healing her parents and I recommend proceeding with vascular surgery referral reinitiation. She would like to see a physician that is in the [place] area and a referral was provided to see Dr. Machado. She is scheduled for October 29. I also offered her lymphedema pump referral and she would like to think about this for an additional week prior to placing the order. Her CBC and CMP were reviewed. No leukocytosis is noted. Her albumin levels 3.6. To return to clinic in 1 week at the wound care center or call sooner if questions or concerns. I answered all of her questions today.
[2017-09-24 15:50] VITALS: BP 150/90; PULSE 88; RESP 18; TEMP 37
--- NOTE | 2017-09-24 16:39 | PCM.WC.PN ---
(1) Chronic ulcer of left lower extremity with fat layer exposed Status: Chronic Code(s): L97.922 - Non-pressure chronic ulcer of unspecified part of left lower leg with fat layer exposed (2) Non-compliance Status: Chronic Code(s): Z91.19 - Patient's noncompliance with other medical treatment and regimen (3) Lymphedema Status: Chronic Code(s): I89.0 - Lymphedema, not elsewhere classified (4) Delayed wound healing Status: Chronic Code(s): T14.8 - Other injury of unspecified body region (5) Localized edema Status: Chronic Code(s): R60.0 - Localized edema (6) Venous insufficiency of left leg Status: Chronic Code(s): I87.2 - Venous insufficiency (chronic) (peripheral) Type of Wound Date of Service: 09/28/17 Chief Complaint: Chronic ulcer to the left lower extremity History of Wound: This 62 year old patient returns to the wound healing center for follow up of her chronic ulcer to her left gutierrez. She has continued bilateral lower extremity edema this is decreased the past week with her multilayer compression dressing. She had venous ablation procedure performed. She has scheduled a consultation with Dr. Machado for October 29, 2017 to see if additional intervention is an option. She did complete obtain a CircAid compression garment. She denies fever, chill, nausea, vomiting, calf pain, or shortness of breath, or wound redness or odor. Progress of Wound: Improving - Physical Exam Vital Signs Temp Pulse Resp BP 98.6 F 88 18 150/90 H 09/24/17 15:50 09/24/17 15:50 09/24/17 15:50 09/24/17 15:50 General: Alert, Oriented x3, Cooperative Extremities: No cyanosis, Capillary Refill Less than 3 Seconds, No Calf Tenderness - Negative Italo and Castillo bilateral, Diminished Peripheral Pulses, Edema - Moderate bilateral lower extremities Skin: Ulcer/ Wound - No purulence, no erythema, streaking, odor, no infection. The wound bed is granular and there is some peripheral epithelialization noted. Wound Measurements and Assessment WC - Nurse 1 - General Ulcer Measurement Start: 09/10/17 16:02 Freq: Status: Active Protocol: Activity Type Activity Date Activity User E-Sign Co-Sign Detail Recorded Client Recorded Date Recorded By Document 09/24/17 15:50 [id number] 09/24/17 16:00 09/24/17 15:50 Wound Center Nurse 1 [Ulcer Assessment] #3 Left Gutierrez -Combined with other wound No -Current Size (cm) - Length 4.5 -Current Size (cm) - Width 3.2 -Current Size (cm) - Depth 0.1 -Total Square Cm 14.40 -Epithelialization Small 1-33% -Tunneling No -Undermining/Tunneling No -Circular Undermining No -Classification - Thickness Full Thickness without Exposed Support Structure -Exudate Amt Small (1-33%) -Exudate Type Serosanguineous -Wound Margin Distinct, Outline Attached -Granulation Amt Large (67-100%) -Granulation Quality Red -Slough/Fibrin Yes -Necrosis Amt Small (1-33%) -Necrotic Tissue Type Adherent Slough -Structure Exposed N/A -Texture (Jenny-wound Skin Appearance) Assessed -Moisture (Jenny-wound Skin Appearance Dry/Scaly ) -Color (Jenny-wound Skin Appearance) Assessed -Temperature (Jenny-wound Skin No Abnormality Appearance) (Pt Warm) -Tenderness on Palpation (Jenny-wound No Skin Appearance) -Ulcer Cleansing Rinsed/ Irrigated with Saline -Foul Odor after Cleansing No -Anesthetic Used 4% Lidocaine Solution [Edema Assessment] -Lower Limb Edema Present Yes -Right Calf (cm) 52 -Right Ankle (cm) 30.5 -Left Calf (cm) 55.5 -Left Ankle (cm) 29.2 WC - Nurse 2 - General Ulcer CM Notes Start: 09/10/17 16:02 Freq: Status: Active Protocol: Activity Type Activity Date Activity User E-Sign Co-Sign Detail Recorded Client Recorded Date Recorded By Document 09/24/17 16:25 [id number] 09/24/17 16:35 09/24/17 16:25 Wound Center Nurse 2 [Procedure/Treatment] #3 Left Gutierrez -Correct Patient Yes -Correct Side, Site, Position Yes -Correct Procedure Yes -Procedure Performed Yes -Type of Procedure Debridement -Clinical Debridement Subcutaneous -Post Debridement Size (cm) - Length 4.8 -Post Debridement Size (cm) - Width 3.1 -Post Debridement Size (cm) - Depth 0.1 -Total Square Cm 14.88 -Wound/Ulcer Outcome Not Healed -Ulcer Cleansing Not Cleansed -Foul Odor after Cleansing No -Bioengineered Tissue No -Bleeding Controlled with NA -Treatment Response Procedure Tolerated Well [See Physician Procedure note for Specifics] Pain Scale: 0-10 Numeric [Pain] -Is Patient Pain Free? Yes Musculoskeletal: No Tenderness to Palpation of Joints or Extremities, Muscle Wasting, - - Compartments of bilateral lower extremities remain soft Neurological: - - Lack of epicritic sensation light touch left lower extremity Psych/Mental Status: Normal Affect, Appropriate Debridement Note Post-Debridement Measurements/Treatment WC - Nurse 2 - General Ulcer CM Notes Start: 09/10/17 16:02 Freq: Status: Active Protocol: Activity Type Activity Date Activity User E-Sign Co-Sign Detail Recorded Client Recorded Date Recorded By Document 09/10/17 16:35 [id number] 09/10/17 16:36 Document 09/17/17 16:59 [id number] 09/17/17 17:03 Document 09/24/17 16:25 [id number] 09/24/17 16:35 09/10/17 09/17/17 09/24/17 16:35 16:59 16:25 Wound Center Nurse 2 #3 Left Gutierrez -Time 16:35 16:59 -Correct Patient Yes Yes Yes -Correct Side, Site, Position Yes Yes Yes -Correct Procedure Yes Yes Yes -Procedure Performed Yes Yes Yes -Type of Procedure Debridement Debridement Debridement -Clinical Debridement Subcutaneous Subcutaneous Subcutaneous -Post Debridement Size (cm) - Length 6.3 6.2 4.8 -Post Debridement Size (cm) - Width 4 3.3 3.1 -Post Debridement Size (cm) - Depth 0.1 0.1 0.1 -Total Square Cm 25.2 20.46 14.88 -Wound/Ulcer Outcome Not Healed Not Healed Not Healed -Ulcer Cleansing Rinsed/ Rinsed/ Not Cleansed Irrigated with Irrigated with Saline Saline -Foul Odor after Cleansing No No No -Bioengineered Tissue No No No -Bleeding Controlled with Pressure Pressure NA -Treatment Response Procedure Procedure Procedure Tolerated Well Tolerated Well Tolerated Well Pain Scale: 0-10 Numeric Is Patient Pain Free? Yes Yes Yes Wound debrided: leg Laterality: Left Type of Debridement: Excisional debridement Anesthesia Used: 5% Lidocaine Gel Depth: in the subcutaneous layer Percentage of wound debrided: 100 Instrument Used: #15 blade Tissue Removed: fibrous, devitalized subcutaneous, biofilm, slough Severity: Fat Layer Exposed Amount of bleeding with debridement: Mild Bleeding Controlled with: Pressure Patient tolerated procedure well Assessment/Plan Assessment: Chronic and recurrent ulcer to the left gutierrez - stable. Venous insufficiency left lower extremity. non compliance. delayed healing Plan: I reviewed and discussed the case with the patient today. The ulcer site was debrided subcutaneously as noted in the clinical panel. She has completed a full course of epi fix. [place] was applied; to change every 1-2 days. An additional compression dressing, bilateral CircAid was applied. She did well with this last week again. . To resume nutritional supplementation to optimize healing. To avoid idle standing and sitting to help reduce fluid collection in the lower extremities. Dr. Barnes suggested Lasix and management per Dr. Barnes will be encouraged. She was reassured no signs of infection noted today. To monitor. . There is no deep venous thrombosis noted in her recent venous Doppler. There is some venous reflux noted at some of the lower extremity sites. To follow-up with Dr. Machado. She is scheduled for October 29. I also offered her lymphedema pump referral and she would like to think about this for an additional week prior to placing the order. Her CBC and CMP were reviewed. No leukocytosis is noted. Her albumin levels 3.6. To return to clinic in 1 week at the wound care center with the covering physician or 2 weeks she is unable to make it due to the national holiday. I advised her to call sooner if questions or concerns. I answered all of her questions today.
== END 2017-09-27 23:59 ==
LOC: WC 16:00
PROVIDERS: Family Provider Internal Medicine; PCP Internal Medicine; Visit Provider Podiatrist
DX: I87.2 Venous insufficiency (chronic) (peripheral) (principal); Z91.19 Patient's noncompliance with other medical treatment and regimen; L97.822 Non-pressure chronic ulcer of other part of left lower leg with fat layer exposed; I89.0 Lymphedema, not elsewhere classified; R60.0 Localized edema
CPT/HCPCS: 11042; 11045

== ENCOUNTER 2017-10-22 16:00 | Outpatient (RCR) | payer MEDICAID, SELFPAY ==
[2017-09-28 00:29] VITALS: BP 150/90; PULSE 88; RESP 18; TEMP 37
[2017-10-08 15:43] VITALS: BP 125/71; PULSE 74; RESP 18; TEMP 36
--- NOTE | 2017-10-08 16:43 | PCM.WC.PN ---
(1) Chronic ulcer of left lower extremity with fat layer exposed Status: Chronic Current Visit: Yes Code(s): L97.922 - Non-pressure chronic ulcer of unspecified part of left lower leg with fat layer exposed (2) Lymphedema Status: Chronic Current Visit: Yes Code(s): I89.0 - Lymphedema, not elsewhere classified (3) Delayed wound healing Status: Chronic Current Visit: Yes Code(s): T14.8 - Other injury of unspecified body region (4) Localized edema Status: Chronic Current Visit: Yes Code(s): R60.0 - Localized edema (5) Venous insufficiency of left leg Status: Chronic Current Visit: Yes Code(s): I87.2 - Venous insufficiency (chronic) (peripheral) Type of Wound Date of Service: 10/09/17 Chief Complaint: Chronic ulcer to the left lower extremity History of Wound: This 62 year old patient returns to the wound healing center for follow up of her chronic ulcer to her left gutierrez. She has continued bilateral lower extremity edema this is decreased the past week with her multilayer compression dressing. She had venous ablation procedure performed with . She is no longer able to follow-up with his physician. She has scheduled a consultation with Dr. Machado for October 29, 2017 to see if additional intervention is an option. She continues to wear CircAid compression garment at work and denies problems. She denies fever, chill, nausea, vomiting, calf pain, or shortness of breath, or wound redness or odor. Progress of Wound: Stable - Physical Exam Vital Signs Temp Pulse Resp BP 96.8 F L 74 18 125/71 H 10/08/17 15:43 10/08/17 15:43 10/08/17 15:43 10/08/17 15:43 General: Alert, Oriented x3, Cooperative HEENT: Atraumatic Extremities: No cyanosis, Capillary Refill Less than 3 Seconds, No Calf Tenderness - Negative Italo and Castillo sign bilateral, Diminished Peripheral Pulses, Edema - Moderate bilateral lower extremities Skin: Ulcer/ Wound - No purulence, no erythema, streaking, no odor, no gregg necrosis left leg. The peripheral skin is atrophic. The wound bed is beefy red and granular. There is peripheral hyperpigmentation noted Wound Measurements and Assessment WC - Nurse 1 - General Ulcer Measurement Start: 10/08/17 15:43 Freq: Status: Active Protocol: Activity Type Activity Date Activity User E-Sign Co-Sign Detail Recorded Client Recorded Date Recorded By Document 10/08/17 15:43 [id number] 10/08/17 15:46 DL 10/08/17 15:43 Wound Center Nurse 1 [Ulcer Assessment] #3 Left Gutierrez -Current Size (cm) - Length 4.8 -Current Size (cm) - Width 3.8 -Current Size (cm) - Depth 0.1 -Total Square Cm 18.24 -Photo Taken No -Exudate Amt Medium (34-66%) -Exudate Type Serosanguineous -Wound Margin Distinct, Outline Attached -Granulation Amt Large (67-100%) -Granulation Quality Red -Necrosis Amt Small (1-33%) -Necrotic Tissue Type Adherent Slough -Structure Exposed N/A -Texture (Jenny-wound Skin Appearance) Scarring -Moisture (Jenny-wound Skin Appearance Maceration ) -Color (Jenny-wound Skin Appearance) Rubor -Temperature (Jenny-wound Skin No Abnormality Appearance) (Pt Warm) -Ulcer Cleansing Rinsed/ Irrigated with Saline -Foul Odor after Cleansing No -Anesthetic Used 4% Lidocaine Solution [Edema Assessment] -Left Calf (cm) 49 -Left Ankle (cm) 27.7 WC - Nurse 2 - General Ulcer CM Notes Start: 10/08/17 15:43 Freq: Status: Active Protocol: Activity Type Activity Date Activity User E-Sign Co-Sign Detail Recorded Client Recorded Date Recorded By Document 10/08/17 16:21 [id number] 10/08/17 16:28 DL 10/08/17 16:21 Wound Center Nurse 2 [Procedure/Treatment] #3 Left Gutierrez -Time 03:30 -Correct Patient Yes -Correct Side, Site, Position Yes -Correct Procedure Yes -Procedure Performed Yes -Type of Procedure Debridement -Clinical Debridement Subcutaneous -Post Debridement Size (cm) - Length 4.9 -Post Debridement Size (cm) - Width 3.8 -Post Debridement Size (cm) - Depth 0.1 -Total Square Cm 18.62 -Wound/Ulcer Outcome Not Healed -Ulcer Cleansing Wound Cleanser -Foul Odor after Cleansing No -Bioengineered Tissue No -Bleeding Controlled with NA -Treatment Response Procedure Tolerated Well [See Physician Procedure note for Specifics] Pain Scale: 0-10 Numeric [Pain] -Is Patient Pain Free? Yes Debridement Note Post-Debridement Measurements/Treatment WC - Nurse 2 - General Ulcer CM Notes Start: 10/08/17 15:43 Freq: Status: Active Protocol: Activity Type Activity Date Activity User E-Sign Co-Sign Detail Recorded Client Recorded Date Recorded By Document 10/08/17 16:21 DL [id number] 10/08/17 16:28 DL 10/08/17 16:21 Wound Center Nurse 2 #3 Left Gutierrez -Time 03:30 -Correct Patient Yes -Correct Side, Site, Position Yes -Correct Procedure Yes -Procedure Performed Yes -Type of Procedure Debridement -Clinical Debridement Subcutaneous -Post Debridement Size (cm) - Length 4.9 -Post Debridement Size (cm) - Width 3.8 -Post Debridement Size (cm) - Depth 0.1 -Total Square Cm 18.62 -Wound/Ulcer Outcome Not Healed -Ulcer Cleansing Wound Cleanser -Foul Odor after Cleansing No -Bioengineered Tissue No -Bleeding Controlled with NA -Treatment Response Procedure Tolerated Well Pain Scale: 0-10 Numeric Is Patient Pain Free? Yes Wound debrided: leg Laterality: Left Type of Debridement: Excisional debridement Anesthesia Used: 5% Lidocaine Gel Depth: in the subcutaneous layer Percentage of wound debrided: 100 Instrument Used: 7mm curette Tissue Removed: fibrous, devitalized subcutaneous, biofilm, slough Severity: Fat Layer Exposed Amount of bleeding with debridement: Mild Bleeding Controlled with: Pressure Patient tolerated procedure well Assessment/Plan Active Problems Lymphedema (Chronic) Delayed wound healing (Chronic) Localized edema (Chronic) Venous insufficiency of left leg (Chronic) Chronic ulcer of left lower extremity with fat layer exposed (Chronic) Assessment: Chronic and recurrent ulcer to the left gutierrez - stable. Venous insufficiency left lower extremity. non compliance. delayed healing Plan: I reviewed and discussed the case with the patient today. The ulcer site was debrided subcutaneously as noted in the clinical panel. She has completed a full course of epi fix. [place] was applied; to change every 1-2 days. An additional compression dressing, bilateral CircAid was applied. She did well with this last week. Compliance was reiterated today. She demonstrates application knowledge. . To resume nutritional supplementation to optimize healing. To avoid idle standing and sitting to help reduce fluid collection in the lower extremities. Dr. Barnes suggested Lasix and management per Dr. Barnes will be encouraged. She was reassured no signs of infection noted today. To monitor. . There is no deep venous thrombosis noted in her recent venous Doppler. I recommend proceeding with vascular surgery referral reinitiation. She would like to see a physician that is in the [place] area and a referral was provided to see Dr. Machado. She is scheduled for October 29. I also offered her lymphedema pump referral and she is ready to proceed with this order at this time. It is noted that she has failed other conservative and advanced compression therapy is for over 6 months including elevation, Mikhail wrap, compression stockings, CircAid, and venous ablation. I am concerned his chronic venous insufficiency is now lymphedema and this is getting challenging to treat. Her CBC and CMP were reviewed. No leukocytosis is noted. Her albumin levels 3.6. To return to clinic in 1 week at the wound care center or call sooner if questions or concerns. I answered all of her questions today.
[2017-10-15 15:58] VITALS: BP 147/68; PULSE 68; RESP 16; TEMP 36.9
--- NOTE | 2017-10-15 20:39 | PN.PCM_ITS ---
(1) Chronic ulcer of left lower extremity with fat layer exposed Status: Chronic Current Visit: Yes Code(s): L97.922 - Non-pressure chronic ulcer of unspecified part of left lower leg with fat layer exposed (2) Lymphedema Status: Chronic Current Visit: Yes Code(s): I89.0 - Lymphedema, not elsewhere classified (3) Delayed wound healing Status: Chronic Current Visit: Yes Code(s): T14.8 - Other injury of unspecified body region (4) Localized edema Status: Chronic Current Visit: Yes Code(s): R60.0 - Localized edema (5) Venous insufficiency of left leg Status: Chronic Current Visit: Yes Code(s): I87.2 - Venous insufficiency ( chronic) (peripheral) Type of Wound Date of Service: 10/15/17 Chief Complaint: Chronic ulcer to the left lower extremity History of Wound: This 62 year old patient returns to the wound healing center for follow up of her chronic ulcer to her left ellison. She has continued bilateral lower extremity edema this is decreased the past week with her multilayer compression dressing. She had venous ablation procedure performed with . She is no longer able to follow-up with his physician. She has scheduled a consultation with Dr. Machado for October 29, 2017 to see if additional intervention is an option. She continues to wear CircAid compression garment at work and denies problems. She denies fever, chill, nausea, vomiting, calf pain, or shortness of breath, or wound redness or odor. Progress of Wound: Stable - Physical Exam Vital Signs Temp Pulse Resp BP 98.4 F 68 16 147/68 H 10/15/17 15:58 10/15/17 15:58 10/15/17 15:58 10/15/17 15:58 General: Alert, Oriented x3, Cooperative HEENT: Atraumatic Extremities: Capillary Refill Less than 3 Seconds, No Calf Tenderness - negative tonya and palencia left, Edema, Peripheral Pulses Normal - dp Skin: Ulcer/ Wound - No purulence, no erythema, streaking, odor, no infection Wound Measurements and Assessment WC - Nurse 1 - General Ulcer Measurement Start: 10/08/17 15:43 Freq: Status: Active Protocol: Activity Type Activity Date Activity User E-Sign Co-Sign Detail Recorded Client Recorded Date Recorded By Document 07/18/18 15:58 [id number] 10/15/17 16:01 10/15/17 15:58 Wound Center Nurse 1 [Ulcer Assessment] #3 Left Ellison -Combined with other wound No -Current Size (cm) - Length 5.5 -Current Size (cm) - Width 3.0 -Current Size (cm) - Depth 0.1 -Total Square Cm 16.50 -Photo Taken No -Epithelialization None Present -Tunneling No -Undermining/Tunneling No -Circular Undermining No -Exudate Amt Medium (34-66%) -Exudate Type Yellow/Green -Wound Margin Flat & Intact -Granulation Amt Large (67-100%) -Granulation Quality [place] Red -Slough/Fibrin No -Necrosis Amt None Present (0 %) -Texture (Jenny-wound Skin Appearance) Assessed Localized Edema -Moisture (Jenny-wound Skin Appearance Assessed ) -Color (Jenny-wound Skin Appearance) Assessed -Temperature (Jenny-wound Skin No Abnormality Appearance) (Pt Warm) -Tenderness on Palpation (Jenny-wound No Skin Appearance) -Ulcer Cleansing Rinsed/ Irrigated with Saline -Foul Odor after Cleansing No -Anesthetic Used 4% Lidocaine Solution [Edema Assessment] -Lower Limb Edema Present Yes -Right Calf (cm) 49 -Right Ankle (cm) 32.5 -Left Calf (cm) 52 -Point of Measurement (cm from the 28 medial instep) WC - Nurse 2 - General Ulcer CM Notes Start: 10/08/17 15:43 Freq: Status: Active Protocol: Activity Type Activity Date Activity User E-Sign Co-Sign Detail Recorded Client Recorded Date Recorded By Document 10/15/17 16:10 [id number] 10/15/17 16:16 10/15/17 16:10 Wound Center Nurse 2 [Procedure/Treatment] #3 Left Ellison -Time 16:10 -Correct Patient Yes -Correct Side, Site, Position Yes -Correct Procedure Yes -Procedure Performed Yes -Type of Procedure Debridement -Clinical Debridement Subcutaneous -Post Debridement Size (cm) - Length 5.6 -Post Debridement Size (cm) - Width 3.1 -Post Debridement Size (cm) - Depth 0.1 -Total Square Cm 17.36 -Wound/Ulcer Outcome Not Healed -Ulcer Cleansing Rinsed/ Irrigated with Saline -Foul Odor after Cleansing No -Bioengineered Tissue No -Topical Lidocaine (%) 4 -Bleeding Controlled with Pressure -Treatment Response Procedure Tolerated Well [See Physician Procedure note for Specifics] Pain Scale: 0-10 Numeric [Pain] -Is Patient Pain Free? Yes Musculoskeletal: No Tenderness to Palpation of Joints or Extremities, Muscle Wasting, - - Compartment soft left Neurological: - - Diminished wound palpation light touch and sharp debridement Psych/Mental Status: Normal Affect, Appropriate Debridement Note Post-Debridement Measurements/Treatment WC - Nurse 2 - General Ulcer CM Notes Start: 10/08/17 15:43 Freq: Status: Active Protocol: Activity Type Activity Date Activity User E-Sign Co-Sign Detail Recorded Client Recorded Date Recorded By Document 10/08/17 16:21 DL [id number] 10/08/17 16:28 DL Document 10/15/17 16:10 TM [id number] 10/15/17 16:16 TM 10/08/17 10/15/17 16:21 16:10 Wound Center Nurse 2 #3 Left Ellison -Time 03:30 16:10 -Correct Patient Yes Yes -Correct Side, Site, Position Yes Yes -Correct Procedure Yes Yes -Procedure Performed Yes Yes -Type of Procedure Debridement Debridement -Clinical Debridement Subcutaneous Subcutaneous -Post Debridement Size (cm) - Length 4.9 5.6 -Post Debridement Size (cm) - Width 3.8 3.1 -Post Debridement Size (cm) - Depth 0.1 0.1 -Total Square Cm 18.62 17.36 -Wound/Ulcer Outcome Not Healed Not Healed -Ulcer Cleansing Wound Cleanser Rinsed/ Irrigated with Saline -Foul Odor after Cleansing No No -Bioengineered Tissue No No -Topical Lidocaine (%) 4 -Bleeding Controlled with NA Pressure -Treatment Response Procedure Procedure Tolerated Well Tolerated Well Pain Scale: 0-10 Numeric Is Patient Pain Free? Yes Yes Wound debrided: leg Laterality: Left Type of Debridement: Excisional debridement Anesthesia Used: 5% Lidocaine Gel Depth: in the subcutaneous layer Percentage of wound debrided: 100 Instrument Used: #15 blade Tissue Removed: fibrous, devitalized subcutaneous, biofilm, slough Severity: Fat Layer Exposed Amount of bleeding with debridement: Mild Bleeding Controlled with: Pressure Patient tolerated procedure well Assessment/Plan Active Problems Lymphedema (Chronic) Delayed wound healing (Chronic) Localized edema (Chronic) Venous insufficiency of left leg (Chronic) Chronic ulcer of left lower extremity with fat layer exposed (Chronic) Assessment: Chronic and recurrent ulcer to the left ellison - stable. Venous insufficiency left lower extremity. non compliance. delayed healing Plan: I reviewed and discussed the case with the patient today. The ulcer site was debrided subcutaneously as noted in the clinical panel. She has completed a full course of epi fix. [place] was applied; to change every 1-2 days. An additional compression dressing, bilateral CircAid was applied. She did well with this last week. Compliance was reiterated today. She demonstrates application knowledge. . To resume nutritional supplementation to optimize healing. To avoid idle standing and sitting to help reduce fluid collection in the lower extremities. She was reassured no signs of infection noted today. To monitor. I recommend proceeding with vascular surgery referral reinitiation. She would like to see a physician that is in the [place] area and a referral was provided to see Dr. Machado. She is scheduled for October 29. I also offered her lymphedema pump referral and she is ready to proceed with this order at this time. It is noted that she has failed other conservative and advanced compression therapy is for over 6 months including elevation, Mikhail wrap, compression stockings, CircAid, and venous ablation. I am concerned his chronic venous insufficiency is now lymphedema and this is getting challenging to treat. A compression pump was ordered and the approval status is still pending. This was ordered through the [employer]. Her CBC and CMP were reviewed. No leukocytosis is noted. Her albumin levels 3.6. To return to clinic in 1 week at the wound care center or call sooner if questions or concerns. I answered all of her questions today.
[2017-10-22 15:53] VITALS: BP 133/81; PULSE 75; RESP 16; TEMP 35.8
--- NOTE | 2017-10-22 17:01 | PN.PCM_ITS ---
(1) Chronic ulcer of left lower extremity with fat layer exposed Status: Chronic Current Visit: Yes Code(s): L97.922 - Non-pressure chronic ulcer of unspecified part of left lower leg with fat layer exposed (2) Lymphedema Status: Chronic Current Visit: Yes Code(s): I89.0 - Lymphedema, not elsewhere classified (3) Delayed wound healing Status: Chronic Current Visit: Yes Code(s): T14.8 - Other injury of unspecified body region (4) Localized edema Status: Chronic Current Visit: Yes Code(s): R60.0 - Localized edema (5) Venous insufficiency of left leg Status: Chronic Current Visit: Yes Code(s): I87.2 - Venous insufficiency ( chronic) (peripheral) Type of Wound Date of Service: 10/22/17 Chief Complaint: Chronic ulcer to the left lower extremity History of Wound: This 62 year old patient returns to the wound healing center for follow up of her chronic ulcer to her left ellison. She has continued bilateral lower extremity edema this is decreased the past week with her multilayer compression dressing. She had venous ablation procedure performed with . She is no longer able to follow-up with his physician. She has scheduled a consultation with Dr. Machado for October 29, 2017 to see if additional intervention is an option. I also recommend lymphedema pump use; an order through [employer] has been initiated several weeks ago and the prior authorization is still pending. She has been contacted by the [employer]. To elevate limbs at rest and avoid idle sitting or standing. She continues to wear CircAid compression garment at work and denies problems. She denies fever, chill, nausea, vomiting, calf pain, or shortness of breath, or wound redness or odor. Progress of Wound: Stable - Physical Exam Vital Signs Temp Pulse Resp BP 96.4 F L 75 16 133/81 H 10/22/17 15:53 10/22/17 15:53 10/22/17 15:53 10/22/17 15:53 General: Alert, Oriented x3, Cooperative Extremities: No cyanosis, Capillary Refill Less than 3 Seconds, No Calf Tenderness - negative tonya and palencia signs bilateral, Diminished Peripheral Pulses, Edema - moderate bilateral lower extremities Skin: Ulcer/ Wound - no purulence, no erythema, no infection, no streaking, no acute signs of infection noted bilateral. peripheral skin is atrophic with some hyperpigmentation. there are increased wrinkes noted jenny wound suggesting some reduction in edema Wound Measurements and Assessment WC - Nurse 1 - General Ulcer Measurement Start: 10/08/17 15:43 Freq: Status: Active Protocol: Activity Type Activity Date Activity User E-Sign Co-Sign Detail Recorded Client Recorded Date Recorded By Document 10/22/17 15:53 CS [id number] 10/22/17 15:59 CS 10/22/17 15:53 Wound Center Nurse 1 [Ulcer Assessment] #3 Left Ellison -Combined with other wound No -Current Size (cm) - Length 5.2 -Current Size (cm) - Width 2 -Current Size (cm) - Depth 0.1 -Total Square Cm 10.4 -Date of Last Picture (Recall this 10/22/17 field) -Photo Taken Yes -Epithelialization None Present -Tunneling No -Undermining/Tunneling No -Circular Undermining No -Exudate Amt Small (1-33%) -Exudate Type Serosanguineous -Wound Margin Distinct, Outline Attached -Granulation Amt Medium (34-66%) -Granulation Quality [place] Red -Slough/Fibrin No -Necrosis Amt None Present (0 %) -Necrotic Tissue Type Adherent Slough -Structure Exposed None/Limited to Skin Breakdown -Texture (Jenny-wound Skin Appearance) Assessed Localized Edema -Moisture (Jenny-wound Skin Appearance Assessed ) Maceration -Color (Jenny-wound Skin Appearance) Assessed Erythema -Temperature (Jenny-wound Skin No Abnormality Appearance) (Pt Warm) -Tenderness on Palpation (Jenny-wound No Skin Appearance) -Ulcer Cleansing Rinsed/ Irrigated with Saline -Foul Odor after Cleansing No -Anesthetic Used 4% Lidocaine Solution [Edema Assessment] -Lower Limb Edema Present Yes -Left Calf (cm) 46.8 -Left Ankle (cm) 30.5 WC - Nurse 2 - General Ulcer CM Notes Start: 10/08/17 15:43 Freq: Status: Active Protocol: Activity Type Activity Date Activity User E-Sign Co-Sign Detail Recorded Client Recorded Date Recorded By Document 10/22/17 16:37 DL [id number] 10/22/17 16:38 DL 10/22/17 16:37 Wound Center Nurse 2 [Procedure/Treatment] #3 Left Ellison -Time 16:00 -Correct Patient Yes -Correct Side, Site, Position Yes -Correct Procedure Yes -Procedure Performed Yes -Type of Procedure Debridement -Clinical Debridement Subcutaneous -Post Debridement Size (cm) - Length 5.3 -Post Debridement Size (cm) - Width 2.1 -Post Debridement Size (cm) - Depth 0.1 -Total Square Cm 11.13 -Wound/Ulcer Outcome Not Healed -Ulcer Cleansing Rinsed/ Irrigated with Saline -Foul Odor after Cleansing No -Bioengineered Tissue No -Bleeding Controlled with NA -Treatment Response Procedure Tolerated Well [See Physician Procedure note for Specifics] Pain Scale: 0-10 Numeric [Pain] -Is Patient Pain Free? Yes Musculoskeletal: No Tenderness to Palpation of Joints or Extremities, Muscle Wasting, - - compartment remains soft left lower extremity Neurological: - - lack of epicritic sensation via light touch to wound and jenny- wound Psych/Mental Status: Normal Affect, Appropriate Debridement Note Post-Debridement Measurements/Treatment WC - Nurse 2 - General Ulcer CM Notes Start: 10/08/17 15:43 Freq: Status: Active Protocol: Activity Type Activity Date Activity User E-Sign Co-Sign Detail Recorded Client Recorded Date Recorded By Document 10/08/17 16:21 DL [id number] 10/08/17 16:28 DL Document 10/15/17 16:10 TM [id number] 10/15/17 16:16 TM Document 10/22/17 16:37 DL [id number] 10/22/17 16:38 DL 10/08/17 10/15/17 10/22/17 16:21 16:10 16:37 Wound Center Nurse 2 #3 Left Ellison -Time 03:30 16:10 16:00 -Correct Patient Yes Yes Yes -Correct Side, Site, Position Yes Yes Yes -Correct Procedure Yes Yes Yes -Procedure Performed Yes Yes Yes -Type of Procedure Debridement Debridement Debridement -Clinical Debridement Subcutaneous Subcutaneous Subcutaneous -Post Debridement Size (cm) - Length 4.9 5.6 5.3 -Post Debridement Size (cm) - Width 3.8 3.1 2.1 -Post Debridement Size (cm) - Depth 0.1 0.1 0.1 -Total Square Cm 18.62 17.36 11.13 -Wound/Ulcer Outcome Not Healed Not Healed Not Healed -Ulcer Cleansing Wound Cleanser Rinsed/ Rinsed/ Irrigated with Irrigated with Saline Saline -Foul Odor after Cleansing No No No -Bioengineered Tissue No No No -Topical Lidocaine (%) 4 -Bleeding Controlled with NA Pressure NA -Treatment Response Procedure Procedure Procedure Tolerated Well Tolerated Well Tolerated Well Pain Scale: 0-10 Numeric Is Patient Pain Free? Yes Yes Yes Wound debrided: leg Laterality: Left Type of Debridement: Excisional debridement Anesthesia Used: 4% Lidocaine Solution Depth: in the subcutaneous layer Percentage of wound debrided: 100 Instrument Used: #15 blade Tissue Removed: fibrous, devitalized subcutaneous, biofilm, slough Severity: Fat Layer Exposed Amount of bleeding with debridement: Mild Bleeding Controlled with: Pressure Patient tolerated procedure well Assessment/Plan Active Problems Lymphedema (Chronic) Delayed wound healing (Chronic) Localized edema (Chronic) Venous insufficiency of left leg (Chronic) Chronic ulcer of left lower extremity with fat layer exposed (Chronic) Assessment: Chronic and recurrent ulcer to the left ellison - stable, no infection. Venous insufficiency left lower extremity. lyphedema. non compliance. delayed healing Plan: I reviewed and discussed the case with the patient today. The ulcer site was debrided subcutaneously as noted in the clinical panel. She has completed a full course of epi fix. [place] was applied; to change every 1-2 days. An additional compression dressing, bilateral CircAid was applied. She did well with this last week. Compliance was reiterated today. She demonstrates application knowledge. . To resume nutritional supplementation to optimize healing. To avoid idle standing and sitting to help reduce fluid collection in the lower extremities. She was reassured no signs of infection noted today. To monitor. I recommend proceeding with vascular surgery referral reinitiation. She would like to see a physician that is in the [place] area and a referral was provided to see Dr. Machado. She is scheduled for October 29. I also offered her lymphedema pump referral and the prior authorization is still pending. It is noted that she has failed other conservative and advanced compression therapy is for over 6 months including elevation, Mikhail wrap, compression stockings, CircAid, and venous ablation. I am concerned her chronic venous insufficiency is now lymphedema and this is getting challenging to treat. A compression pump was ordered and the approval status is still pending. This was ordered through the [employer]. Her CBC and CMP were reviewed. No leukocytosis is noted. Her albumin levels 3.6. To return to clinic in 1 week at the wound care center or call sooner if questions or concerns. I answered all of her questions today.
== END 2017-10-28 23:59 ==
LOC: WC 16:00
PROVIDERS: Family Provider Internal Medicine; PCP Internal Medicine; Visit Provider Podiatrist
DX: I87.2 Venous insufficiency (chronic) (peripheral) (principal); R60.0 Localized edema; I89.0 Lymphedema, not elsewhere classified; L97.822 Non-pressure chronic ulcer of other part of left lower leg with fat layer exposed; Z91.19 Patient's noncompliance with other medical treatment and regimen
CPT/HCPCS: 11042

== ENCOUNTER → 2017-11-10 08:40 | Outpatient (CLI) | payer MEDICAID, SELFPAY | PROVIDERS: Family Provider Internal Medicine; PCP Internal Medicine; Visit Provider Surgery Vascular Surgery | DX: I87.309 Chronic venous hypertension (idiopathic) without complications of unspecified lower extremity (principal); I83.009 Varicose veins of unspecified lower extremity with ulcer of unspecified site; M79.609 Pain in unspecified limb; M79.89 Other specified soft tissue disorders | CPT/HCPCS: 93971 ==

== ENCOUNTER 2017-11-26 16:00 | Outpatient (RCR) | payer MEDICAID, SELFPAY ==
[2017-10-29 00:33] VITALS: BP 133/81; PULSE 75; RESP 16; TEMP 35.8
[2017-10-29 16:01] VITALS: BP 153/83; PULSE 65; RESP 18; TEMP 36.6
--- NOTE | 2017-10-30 21:37 | PCM.WC.PN ---
(1) Chronic ulcer of left lower extremity with fat layer exposed Status: Chronic Current Visit: Yes Code(s): L97.922 - Non-pressure chronic ulcer of unspecified part of left lower leg with fat layer exposed (2) Lymphedema Status: Chronic Current Visit: Yes Code(s): I89.0 - Lymphedema, not elsewhere classified (3) Delayed wound healing Status: Chronic Current Visit: Yes Code(s): T14.8 - Other injury of unspecified body region (4) Localized edema Status: Chronic Current Visit: Yes Code(s): R60.0 - Localized edema (5) Venous insufficiency of left leg Status: Chronic Current Visit: Yes Code(s): I87.2 - Venous insufficiency (chronic) (peripheral) (6) Malnutrition Status: Chronic Current Visit: Yes Code(s): E46 - Unspecified protein-calorie malnutrition Type of Wound Date of Service: 10/29/17 Chief Complaint: Chronic ulcer to the left lower extremity History of Wound: This 62 year old patient returns to the wound healing center for follow up of her chronic ulcer to her left ellison. She has continued bilateral lower extremity edema this is decreased the past week with her multilayer compression dressing. She had venous ablation procedure performed with . She is no longer able to follow-up with his physician. She has scheduled a consultation with Dr. Machado for October 29, 2017 and there is no planned venous ablation scheduled. I also recommend lymphedema pump use; an order through [employer] has been initiated several weeks ago and this has been approved. She plans to call a follow-up to obtain this device is recommended. To elevate limbs at rest and avoid idle sitting or standing. She continues to wear CircAid compression garment at work and denies problems. She denies fever, chill, nausea, vomiting, calf pain, or shortness of breath, or wound redness or odor. Progress of Wound: Stable - Physical Exam Vital Signs Temp Pulse Resp BP 98 F 65 18 153/83 H 10/29/17 16:01 10/29/17 16:01 10/29/17 16:10/29/17 16:01 General: Alert, Oriented x3, Cooperative Extremities: No cyanosis, Capillary Refill Less than 3 Seconds, No Calf Tenderness - Negative Italo and Castillo sign bilateral, Diminished Peripheral Pulses, Edema - Moderate bilateral lower extremities without induration Skin: Ulcer/ Wound - No purulence, no erythema, streaking, no odor, no infection bilateral. There is peripheral epithelialization noted to the wound and peripheral hyperpigmentation also noted with increased skin wrinkle lines, - - The peripheral skin is atrophic and hairless left Wound Measurements and Assessment WC - Nurse 1 - General Ulcer Measurement Start: 10/29/17 16:01 Freq: Status: Active Protocol: Activity Type Activity Date Activity User E-Sign Co-Sign Detail Recorded Client Recorded Date Recorded By Document 10/29/17 16:01 RB [id number] 10/29/17 16:03 RB 10/29/17 16:01 Wound Center Nurse 1 [Ulcer Assessment] #3 Left Ellison -Combined with other wound No -Current Size (cm) - Length 5.2 -Current Size (cm) - Width 3 -Current Size (cm) - Depth 0.1 -Total Square Cm 15.6 -Epithelialization Small 1-33% -Tunneling No -Undermining/Tunneling No -Circular Undermining No -Classification - Thickness Full Thickness without Exposed Support Structure -Exudate Amt Small (1-33%) -Exudate Type Serosanguineous -Wound Margin Distinct, Outline Attached -Granulation Amt Large (67-100%) -Granulation Quality Red -Slough/Fibrin Yes -Necrosis Amt Small (1-33%) -Necrotic Tissue Type Adherent Slough -Structure Exposed N/A -Texture (Jenny-wound Skin Appearance) Assessed -Moisture (Jenny-wound Skin Appearance Assessed ) -Color (Jenny-wound Skin Appearance) Assessed Hemosiderin Staining -Temperature (Jenny-wound Skin No Abnormality Appearance) (Pt Warm) -Tenderness on Palpation (Jenny-wound No Skin Appearance) -Ulcer Cleansing Wound Cleanser -Foul Odor after Cleansing No -Anesthetic Used 5% Lidocaine Gel [Edema Assessment] -Lower Limb Edema Present Yes -Left Calf (cm) 53 -Left Ankle (cm) 28.5 - Nurse 2 - General Ulcer CM Notes Start: 10/29/17 16:01 Freq: Status: Active Protocol: Activity Type Activity Date Activity User E-Sign Co-Sign Detail Recorded Client Recorded Date Recorded By Document 10/29/17 16:34 TM [id number] 10/29/17 16:40 TM 10/29/17 16:34 Wound Center Nurse 2 [Procedure/Treatment] #3 Left Ellison -Time 16:34 -Correct Patient Yes -Correct Side, Site, Position Yes -Correct Procedure Yes -Procedure Performed Yes -Type of Procedure Debridement -Clinical Debridement Subcutaneous -Post Debridement Size (cm) - Length 5.3 -Post Debridement Size (cm) - Width 3.1 -Post Debridement Size (cm) - Depth 0.1 -Total Square Cm 16.43 -Wound/Ulcer Outcome Not Healed -Ulcer Cleansing Rinsed/ Irrigated with Saline -Foul Odor after Cleansing No -Bioengineered Tissue No -Topical Lidocaine (%) 4 -Bleeding Controlled with Pressure -Treatment Response Procedure Tolerated Well [See Physician Procedure note for Specifics] Pain Scale: 0-10 Numeric [Pain] -Is Patient Pain Free? Yes Musculoskeletal: No Tenderness to Palpation of Joints or Extremities, Muscle Wasting Neurological: - - Lack of epicritic sensation light touch with wound manipulation and debridement left lower extremity Psych/Mental Status: Normal Affect, Appropriate Debridement Note Post-Debridement Measurements/Treatment WC - Nurse 2 - General Ulcer CM Notes Start: 10/29/17 16:01 Freq: Status: Active Protocol: Activity Type Activity Date Activity User E-Sign Co-Sign Detail Recorded Client Recorded Date Recorded By Document 10/29/17 16:34 [id number] 10/29/17 16:40 TM 10/29/17 16:34 Wound Center Nurse 2 #3 Left Ellison -Time 16:34 -Correct Patient Yes -Correct Side, Site, Position Yes -Correct Procedure Yes -Procedure Performed Yes -Type of Procedure Debridement -Clinical Debridement Subcutaneous -Post Debridement Size (cm) - Length 5.3 -Post Debridement Size (cm) - Width 3.1 -Post Debridement Size (cm) - Depth 0.1 -Total Square Cm 16.43 -Wound/Ulcer Outcome Not Healed -Ulcer Cleansing Rinsed/ Irrigated with Saline -Foul Odor after Cleansing No -Bioengineered Tissue No -Topical Lidocaine (%) 4 -Bleeding Controlled with Pressure -Treatment Response Procedure Tolerated Well Pain Scale: 0-10 Numeric Is Patient Pain Free? Yes Wound debrided: leg Laterality: Left Anesthesia Used: 4% Lidocaine Solution Depth: in the subcutaneous layer Percentage of wound debrided: 100 Instrument Used: #15 blade Tissue Removed: fibrous, devitalized subcutaneous, biofilm, slough Severity: Fat Layer Exposed Amount of bleeding with debridement: Mild Bleeding Controlled with: Pressure Patient tolerated procedure well Assessment/Plan Active Problems Lymphedema (Chronic) Delayed wound healing (Chronic) Localized edema (Chronic) Venous insufficiency of left leg (Chronic) Chronic ulcer of left lower extremity with fat layer exposed (Chronic) Malnutrition (Chronic) Assessment: Chronic and recurrent ulcer to the left ellison - stable, no infection. Venous insufficiency left lower extremity. lyphedema. non compliance. delayed healing Plan: I reviewed and discussed the case with the patient today. The ulcer site was debrided subcutaneously as noted in the clinical panel. She has completed a full course of epi fix. [place] was applied; to change every 1-2 days. An additional compression dressing, bilateral CircAid was applied. She did well with this last week. Compliance was reiterated today. She demonstrates application knowledge. She has been recently approved for lymphedema pump and I recommend she follows through with calling the company and arranging a dispersal appointment. . To resume nutritional supplementation to optimize healing. To avoid idle standing and sitting to help reduce fluid collection in the lower extremities. She was reassured no signs of infection noted today. To monitor. I recommend proceeding with vascular surgery referral reinitiation. She is scheduled for venous testing and surgical intervention with Dr. Machado this upcoming month. It is noted that she has failed other conservative and advanced compression therapy is for over 6 months including elevation, Mikhail wrap, compression stockings, CircAid, and venous ablation. I am concerned her chronic venous insufficiency is now lymphedema and this is getting challenging to treat. Her CBC and CMP were reviewed. No leukocytosis is noted. Her albumin levels 3.6. To return to clinic in 1 week at the wound care center or call sooner if questions or concerns. I answered all of her questions today.
--- NOTE | 2017-10-30 21:41 | PN.PCM_ITS ---
(1) Chronic ulcer of left lower extremity with fat layer exposed Status: Chronic Current Visit: Yes Code(s): L97.922 - Non-pressure chronic ulcer of unspecified part of left lower leg with fat layer exposed (2) Lymphedema Status: Chronic Current Visit: Yes Code(s): I89.0 - Lymphedema, not elsewhere classified (3) Delayed wound healing Status: Chronic Current Visit: Yes Code(s): T14.8 - Other injury of unspecified body region (4) Localized edema Status: Chronic Current Visit: Yes Code(s): R60.0 - Localized edema (5) Venous insufficiency of left leg Status: Chronic Current Visit: Yes Code(s): I87.2 - Venous insufficiency ( chronic) (peripheral) (6) Malnutrition Status: Chronic Current Visit: Yes Code(s): E46 - Unspecified protein- calorie malnutrition Type of Wound Date of Service: 10/29/17 Chief Complaint: Chronic ulcer to the left lower extremity History of Wound: This 62 year old patient returns to the wound healing center for follow up of her chronic ulcer to her left ellison. She has continued bilateral lower extremity edema this is decreased the past week with her multilayer compression dressing. She had venous ablation procedure performed with . She is no longer able to follow-up with his physician. She has scheduled a consultation with Dr. Mahcado for October 29, 2017 and there is no planned venous ablation scheduled. I also recommend lymphedema pump use; an order through [employer] has been initiated several weeks ago and this has been approved. She plans to call a follow-up to obtain this device is recommended. To elevate limbs at rest and avoid idle sitting or standing. She continues to wear CircAid compression garment at work and denies problems. She denies fever, chill, nausea, vomiting, calf pain, or shortness of breath, or wound redness or odor. Progress of Wound: Stable - Physical Exam Vital Signs Temp Pulse Resp BP 98 F 65 18 153/83 H 10/29/17 16:01 10/29/17 16:01 10/29/17 16:10/29/17 16:01 General: Alert, Oriented x3, Cooperative Extremities: No cyanosis, Capillary Refill Less than 3 Seconds, No Calf Tenderness - Negative Italo and Castillo sign bilateral, Diminished Peripheral Pulses, Edema - Moderate bilateral lower extremities without induration Skin: Ulcer/ Wound - No purulence, no erythema, streaking, no odor, no infection bilateral. There is peripheral epithelialization noted to the wound and peripheral hyperpigmentation also noted with increased skin wrinkle lines, - - The peripheral skin is atrophic and hairless left Wound Measurements and Assessment WC - Nurse 1 - General Ulcer Measurement Start: 10/29/17 16:01 Freq: Status: Active Protocol: Activity Type Activity Date Activity User E-Sign Co-Sign Detail Recorded Client Recorded Date Recorded By Document 10/29/17 16:01 RB [id number] 10/29/17 16:03 RB 10/29/17 16:01 Wound Center Nurse 1 [Ulcer Assessment] #3 Left Ellison -Combined with other wound No -Current Size (cm) - Length 5.2 -Current Size (cm) - Width 3 -Current Size (cm) - Depth 0.1 -Total Square Cm 15.6 -Epithelialization Small 1-33% -Tunneling No -Undermining/Tunneling No -Circular Undermining No -Classification - Thickness Full Thickness without Exposed Support Structure -Exudate Amt Small (1-33%) -Exudate Type Serosanguineous -Wound Margin Distinct, Outline Attached -Granulation Amt Large (67-100%) -Granulation Quality Red -Slough/Fibrin Yes -Necrosis Amt Small (1-33%) -Necrotic Tissue Type Adherent Slough -Structure Exposed N/A -Texture (Jenny-wound Skin Appearance) Assessed -Moisture (Jenny-wound Skin Appearance Assessed ) -Color (Jenny-wound Skin Appearance) Assessed Hemosiderin Staining -Temperature (Jenny-wound Skin No Abnormality Appearance) (Pt Warm) -Tenderness on Palpation (Jenny-wound No Skin Appearance) -Ulcer Cleansing Wound Cleanser -Foul Odor after Cleansing No -Anesthetic Used 5% Lidocaine Gel [Edema Assessment] -Lower Limb Edema Present Yes -Left Calf (cm) 53 -Left Ankle (cm) 28.5 - Nurse 2 - General Ulcer CM Notes Start: 10/29/17 16:01 Freq: Status: Active Protocol: Activity Type Activity Date Activity User E-Sign Co-Sign Detail Recorded Client Recorded Date Recorded By Document 10/29/17 16:34 TM [id number] 10/29/17 16:40 TM 10/29/17 16:34 Wound Center Nurse 2 [Procedure/Treatment] #3 Left Ellison -Time 16:34 -Correct Patient Yes -Correct Side, Site, Position Yes -Correct Procedure Yes -Procedure Performed Yes -Type of Procedure Debridement -Clinical Debridement Subcutaneous -Post Debridement Size (cm) - Length 5.3 -Post Debridement Size (cm) - Width 3.1 -Post Debridement Size (cm) - Depth 0.1 -Total Square Cm 16.43 -Wound/Ulcer Outcome Not Healed -Ulcer Cleansing Rinsed/ Irrigated with Saline -Foul Odor after Cleansing No -Bioengineered Tissue No -Topical Lidocaine (%) 4 -Bleeding Controlled with Pressure -Treatment Response Procedure Tolerated Well [See Physician Procedure note for Specifics] Pain Scale: 0-10 Numeric [Pain] -Is Patient Pain Free? Yes Musculoskeletal: No Tenderness to Palpation of Joints or Extremities, Muscle Wasting Neurological: - - Lack of epicritic sensation light touch with wound manipulation and debridement left lower extremity Psych/Mental Status: Normal Affect, Appropriate Debridement Note Post-Debridement Measurements/Treatment WC - Nurse 2 - General Ulcer CM Notes Start: 10/29/17 16:01 Freq: Status: Active Protocol: Activity Type Activity Date Activity User E-Sign Co-Sign Detail Recorded Client Recorded Date Recorded By Document 10/29/17 16:34 [id number] 10/29/17 16:40 TM 10/29/17 16:34 Wound Center Nurse 2 #3 Left Ellison -Time 16:34 -Correct Patient Yes -Correct Side, Site, Position Yes -Correct Procedure Yes -Procedure Performed Yes -Type of Procedure Debridement -Clinical Debridement Subcutaneous -Post Debridement Size (cm) - Length 5.3 -Post Debridement Size (cm) - Width 3.1 -Post Debridement Size (cm) - Depth 0.1 -Total Square Cm 16.43 -Wound/Ulcer Outcome Not Healed -Ulcer Cleansing Rinsed/ Irrigated with Saline -Foul Odor after Cleansing No -Bioengineered Tissue No -Topical Lidocaine (%) 4 -Bleeding Controlled with Pressure -Treatment Response Procedure Tolerated Well Pain Scale: 0-10 Numeric Is Patient Pain Free? Yes Wound debrided: leg Laterality: Left Anesthesia Used: 4% Lidocaine Solution Depth: in the subcutaneous layer Percentage of wound debrided: 100 Instrument Used: #15 blade Tissue Removed: fibrous, devitalized subcutaneous, biofilm, slough Severity: Fat Layer Exposed Amount of bleeding with debridement: Mild Bleeding Controlled with: Pressure Patient tolerated procedure well Assessment/Plan Active Problems Lymphedema (Chronic) Delayed wound healing (Chronic) Localized edema (Chronic) Venous insufficiency of left leg (Chronic) Chronic ulcer of left lower extremity with fat layer exposed (Chronic) Malnutrition (Chronic) Assessment: Chronic and recurrent ulcer to the left ellison - stable, no infection. Venous insufficiency left lower extremity. lyphedema. non compliance. delayed healing Plan: I reviewed and discussed the case with the patient today. The ulcer site was debrided subcutaneously as noted in the clinical panel. She has completed a full course of epi fix. [place] was applied; to change every 1-2 days. An additional compression dressing, bilateral CircAid was applied. She did well with this last week. Compliance was reiterated today. She demonstrates application knowledge. She has been recently approved for lymphedema pump and I recommend she follows through with calling the company and arranging a dispersal appointment. . To resume nutritional supplementation to optimize healing. To avoid idle standing and sitting to help reduce fluid collection in the lower extremities. She was reassured no signs of infection noted today. To monitor. I recommend proceeding with vascular surgery referral reinitiation. She is scheduled for venous testing and surgical intervention with Dr. Machado this upcoming month. It is noted that she has failed other conservative and advanced compression therapy is for over 6 months including elevation, Mikhail wrap, compression stockings, CircAid, and venous ablation. I am concerned her chronic venous insufficiency is now lymphedema and this is getting challenging to treat. Her CBC and CMP were reviewed. No leukocytosis is noted. Her albumin levels 3.6. To return to clinic in 1 week at the wound care center or call sooner if questions or concerns. I answered all of her questions today.
[2017-11-05 15:57] VITALS: BP 137/78; PULSE 70; RESP 18; TEMP 37.1
--- NOTE | 2017-11-05 17:07 | PCM.WC.PN ---
(1) Chronic ulcer of left lower extremity with fat layer exposed Status: Chronic Code(s): L97.922 - Non-pressure chronic ulcer of unspecified part of left lower leg with fat layer exposed (2) Lymphedema Status: Chronic Code(s): I89.0 - Lymphedema, not elsewhere classified (3) Delayed wound healing Status: Chronic Code(s): T14.8 - Other injury of unspecified body region (4) Localized edema Status: Chronic Code(s): R60.0 - Localized edema (5) Venous insufficiency of left leg Status: Chronic Code(s): I87.2 - Venous insufficiency (chronic) (peripheral) (6) Malnutrition Status: Chronic Code(s): E46 - Unspecified protein-calorie malnutrition Type of Wound Date of Service: 11/08/17 Chief Complaint: Chronic ulcer to the left lower extremity History of Wound: This 62 year old patient returns to the wound healing center for follow up of her chronic ulcer to her left ellison. She has continued bilateral lower extremity edema this is decreased the past week with her multilayer compression dressing. She had venous ablation procedure performed with . She is no longer able to follow-up with his physician. She has scheduled a consultation with Dr. Machado for October 29, 2017 and there is no planned venous ablation scheduled. I also recommend lymphedema pump use; an order through [facility] [employer] has been initiated several weeks ago and this has been approved. She plans to call a follow-up to obtain this device is recommended. To elevate limbs at rest and avoid idle sitting or standing. She continues to wear CircAid compression garment at work and denies problems. She denies fever, chill, nausea, vomiting, calf pain, or shortness of breath, or wound redness or odor. Progress of Wound: Stable - Physical Exam Vital Signs Temp Pulse Resp BP 98.7 F 70 18 137/78 H 11/05/17 15:57 11/05/17 15:57 11/05/17 15:57 11/05/17 15:57 General: Alert, Oriented x3, Cooperative Extremities: No cyanosis, Capillary Refill Less than 3 Seconds, No Calf Tenderness - Negative Italo and Castillo sign left, Edema Skin: Ulcer/ Wound - No purulence, no erythema, streaking, no odor, no infection left. Peripheral skin is atrophic Wound Measurements and Assessment WC - Nurse 1 - General Ulcer Measurement Start: 10/29/17 16:01 Freq: Status: Active Protocol: Activity Type Activity Date Activity User E-Sign Co-Sign Detail Recorded Client Recorded Date Recorded By Document 11/05/17 15:57 RB [id number] 11/05/17 15:58 RB 11/05/17 15:57 Wound Center Nurse 1 [Ulcer Assessment] #3 Left Ellison -Combined with other wound No -Current Size (cm) - Length 5 -Current Size (cm) - Width 2.7 -Current Size (cm) - Depth 0.1 -Total Square Cm 13.5 -Photo Taken No -Tunneling No -Undermining/Tunneling No -Circular Undermining No -Classification - Thickness Full Thickness without Exposed Support Structure -Exudate Amt Small (1-33%) -Exudate Type Serosanguineous -Wound Margin Distinct, Outline Attached -Granulation Amt Large (67-100%) -Granulation Quality Red -Slough/Fibrin Yes -Necrosis Amt Small (1-33%) -Necrotic Tissue Type Adherent Slough -Structure Exposed N/A -Texture (Jenny-wound Skin Appearance) Assessed -Moisture (Jenny-wound Skin Appearance Assessed ) -Color (Jenny-wound Skin Appearance) Assessed -Temperature (Jenny-wound Skin No Abnormality Appearance) (Pt Warm) -Tenderness on Palpation (Jenny-wound No Skin Appearance) -Ulcer Cleansing Wound Cleanser -Foul Odor after Cleansing No -Anesthetic Used 4% Lidocaine Solution [Edema Assessment] -Lower Limb Edema Present Yes -Left Calf (cm) 50 -Left Ankle (cm) 29.3 - Nurse 2 - General Ulcer CM Notes Start: 10/29/17 16:01 Freq: Status: Active Protocol: Activity Type Activity Date Activity User E-Sign Co-Sign Detail Recorded Client Recorded Date Recorded By Document 11/05/17 16:12 TM [id number] 11/05/17 16:13 TM 11/05/17 16:12 Wound Center Nurse 2 [Procedure/Treatment] #3 Left Ellison -Time 16:13 -Correct Patient Yes -Correct Side, Site, Position Yes -Correct Procedure Yes -Procedure Performed Yes -Type of Procedure Debridement -Clinical Debridement Subcutaneous -Post Debridement Size (cm) - Length 5.1 -Post Debridement Size (cm) - Width 2.8 -Post Debridement Size (cm) - Depth 0.1 -Total Square Cm 14.28 -Wound/Ulcer Outcome Not Healed -Ulcer Cleansing Rinsed/ Irrigated with Saline -Foul Odor after Cleansing No -Bioengineered Tissue No -Topical Lidocaine (%) 4 -Bleeding Controlled with Pressure -Treatment Response Procedure Tolerated Well [See Physician Procedure note for Specifics] Pain Scale: 0-10 Numeric [Pain] -Is Patient Pain Free? Yes Musculoskeletal: No Tenderness to Palpation of Joints or Extremities, Muscle Wasting Neurological: - - Lack of epicritic sensation wound manipulation debridement left leg Psych/Mental Status: Normal Affect, Appropriate Debridement Note Post-Debridement Measurements/Treatment WC - Nurse 2 - General Ulcer CM Notes Start: 10/29/17 16:01 Freq: Status: Active Protocol: Activity Type Activity Date Activity User E-Sign Co-Sign Detail Recorded Client Recorded Date Recorded By Document 10/29/17 16:34 TM [id number] 10/29/17 16:40 TM Document 11/05/17 16:12 [id number] 11/05/17 16:13 TM 10/29/17 11/05/17 16:34 16:12 Wound Center Nurse 2 #3 Left Ellison -Time 16:34 16:13 -Correct Patient Yes Yes -Correct Side, Site, Position Yes Yes -Correct Procedure Yes Yes -Procedure Performed Yes Yes -Type of Procedure Debridement Debridement -Clinical Debridement Subcutaneous Subcutaneous -Post Debridement Size (cm) - Length 5.3 5.1 -Post Debridement Size (cm) - Width 3.1 2.8 -Post Debridement Size (cm) - Depth 0.1 0.1 -Total Square Cm 16.43 14.28 -Wound/Ulcer Outcome Not Healed Not Healed -Ulcer Cleansing Rinsed/ Rinsed/ Irrigated with Irrigated with Saline Saline -Foul Odor after Cleansing No No -Bioengineered Tissue No No -Topical Lidocaine (%) 4 4 -Bleeding Controlled with Pressure Pressure -Treatment Response Procedure Procedure Tolerated Well Tolerated Well Pain Scale: 0-10 Numeric Is Patient Pain Free? Yes Yes Wound debrided: leg anterior Laterality: Left Type of Debridement: Excisional debridement Anesthesia Used: 4% Lidocaine Solution Depth: in the subcutaneous layer Percentage of wound debrided: 100 Instrument Used: #15 blade Tissue Removed: fibrous, devitalized subcutaneous, biofilm, slough Severity: Fat Layer Exposed Amount of bleeding with debridement: Mild Bleeding Controlled with: Pressure Patient tolerated procedure well Assessment/Plan Assessment: Chronic and recurrent ulcer to the left ellison - stable, no infection. Venous insufficiency left lower extremity. lyphedema. non compliance. delayed healing Plan: I reviewed and discussed the case with the patient today. The ulcer site was debrided subcutaneously as noted in the clinical panel. She has completed a full course of epi fix. [place] was applied; to change every 1-2 days. An additional compression dressing, bilateral CircAid was applied. She did well with this last week. Compliance was reiterated today. She demonstrates application knowledge. She has been recently approved for lymphedema pump and I recommend she follows through with calling the company and arranging a dispersal appointment. . To resume nutritional supplementation to optimize healing. To avoid idle standing and sitting to help reduce fluid collection in the lower extremities. She was reassured no signs of infection noted today. To monitor. I recommend proceeding with vascular surgery referral reinitiation. She is scheduled for venous testing and surgical intervention with Dr. Machado this upcoming month. This procedure has been scheduled for next Friday and she will further follow-up next Friday the post procedure evaluation with Dr. Machado. It is noted that she has failed other conservative and advanced compression therapy is for over 6 months including elevation, Mikhail wrap, compression stockings, CircAid, and venous ablation. I am concerned her chronic venous insufficiency is now lymphedema and this is getting challenging to treat. Her CBC and CMP were reviewed. No leukocytosis is noted. Her albumin levels 3.6. To return to clinic in 1 week at the wound care center or call sooner if questions or concerns. I answered all of her questions today.
[2017-11-12 15:41] VITALS: BP 147/87; PULSE 66; RESP 18; TEMP 35.4
--- NOTE | 2017-11-12 16:38 | PCM.WC.PN ---
(1) Chronic ulcer of left lower extremity with fat layer exposed Status: Chronic Current Visit: Yes Code(s): L97.922 - Non-pressure chronic ulcer of unspecified part of left lower leg with fat layer exposed (2) Lymphedema Status: Chronic Current Visit: Yes Code(s): I89.0 - Lymphedema, not elsewhere classified (3) Delayed wound healing Status: Chronic Current Visit: Yes Code(s): T14.8 - Other injury of unspecified body region (4) Localized edema Status: Chronic Current Visit: Yes Code(s): R60.0 - Localized edema (5) Venous insufficiency of left leg Status: Chronic Current Visit: Yes Code(s): I87.2 - Venous insufficiency (chronic) (peripheral) (6) Malnutrition Status: Chronic Current Visit: Yes Code(s): E46 - Unspecified protein-calorie malnutrition Type of Wound Date of Service: 11/12/17 Chief Complaint: Chronic ulcer to the left lower extremity History of Wound: This 62 year old patient returns to the wound healing center for follow up of her chronic ulcer to her left ellison. She has continued bilateral lower extremity edema this is decreased the past week with her multilayer compression dressing. She had venous ablation procedure performed with . She is no longer able to follow-up with his physician. She has scheduled a consultation with Dr. Machado and is gone for consultation. Vascular surgery recommends additional venous ablations and intervention and this can be done in the [place] area. Eloina elects to seek transportation options through her insurance and will make some phone calls to arrange this. I also recommend lymphedema pump use; she started use last week and is doing well. To elevate limbs at rest and avoid idle sitting or standing. She continues to wear CircAid compression garment at work and denies problems. She denies fever, chill, nausea, vomiting, calf pain, or shortness of breath, or wound redness or odor. Progress of Wound: Stable - Physical Exam Vital Signs Temp Pulse Resp BP 95.7 F L 66 18 147/87 H 11/12/17 15:41 11/12/17 15:41 11/12/17 15:41 11/12/17 15:41 General: Alert, Oriented x3, Cooperative Extremities: No cyanosis, Capillary Refill Less than 3 Seconds, No Calf Tenderness - Negative Italo and Castillo signs left, Diminished Peripheral Pulses, Edema - Moderate bilateral lower extremities Skin: Ulcer/ Wound - No purulence, erythema, streaking, odor, no infection left. The peripheral skin is atrophic and hairless Wound Measurements and Assessment - Nurse 1 - General Ulcer Measurement Start: 10/29/17 16:01 Freq: Status: Active Protocol: Activity Type Activity Date Activity User E-Sign Co-Sign Detail Recorded Client Recorded Date Recorded By Document 11/12/17 15:41 [id number] 11/12/17 15:44 11/12/17 15:41 Wound Center Nurse 1 [Ulcer Assessment] #3 Left Ellison -Combined with other wound No -Current Size (cm) - Length 4.7 -Current Size (cm) - Width 2.4 -Current Size (cm) - Depth 0.1 -Total Square Cm 11.28 -Photo Taken Yes -Epithelialization Medium 34-66% -Tunneling No -Undermining/Tunneling No -Circular Undermining No -Exudate Amt Medium (34-66%) -Exudate Type Serosanguineous -Wound Margin Flat & Intact -Granulation Amt Large (67-100%) -Granulation Quality Red -Slough/Fibrin Yes -Necrosis Amt Medium (34-66%) -Necrotic Tissue Type Adherent Slough -Structure Exposed N/A -Texture (Jenny-wound Skin Appearance) Assessed Localized Edema -Moisture (Jenny-wound Skin Appearance Assessed ) Dry/Scaly -Color (Jenny-wound Skin Appearance) Assessed Hemosiderin Staining -Temperature (Jenny-wound Skin No Abnormality Appearance) (Pt Warm) -Tenderness on Palpation (Jenny-wound No Skin Appearance) -Ulcer Cleansing Rinsed/ Irrigated with Saline -Foul Odor after Cleansing No -Anesthetic Used 4% Lidocaine Solution [Edema Assessment] -Lower Limb Edema Present Yes -Left Calf (cm) 48.8 -Left Ankle (cm) 29.4 - Nurse 2 - General Ulcer CM Notes Start: 10/29/17 16:01 Freq: Status: Active Protocol: Activity Type Activity Date Activity User E-Sign Co-Sign Detail Recorded Client Recorded Date Recorded By Document 11/12/17 15:49 [id number] 11/12/17 15:52 11/12/17 15:49 Wound Center Nurse 2 [Procedure/Treatment] #3 Left Ellison -Time 15:49 -Correct Patient Yes -Correct Side, Site, Position Yes -Correct Procedure Yes -Procedure Performed Yes -Type of Procedure Debridement -Clinical Debridement Subcutaneous -Post Debridement Size (cm) - Length 4.8 -Post Debridement Size (cm) - Width 2.4 -Post Debridement Size (cm) - Depth 0.1 -Total Square Cm 11.52 -Wound/Ulcer Outcome Not Healed -Ulcer Cleansing Rinsed/ Irrigated with Saline -Foul Odor after Cleansing No -Bleeding Controlled with Pressure -Treatment Response Procedure Tolerated Well [See Physician Procedure note for Specifics] Pain Scale: 0-10 Numeric [Pain] -Is Patient Pain Free? Yes Musculoskeletal: No Tenderness to Palpation of Joints or Extremities, Muscle Wasting, - - Compartments of left lower extremity remain soft Neurological: - - Altered and diminished sensation with wound manipulation debridement left lower extremity Psych/Mental Status: Normal Affect, Appropriate Debridement Note Post-Debridement Measurements/Treatment WC - Nurse 2 - General Ulcer CM Notes Start: 10/29/17 16:01 Freq: Status: Active Protocol: Activity Type Activity Date Activity User E-Sign Co-Sign Detail Recorded Client Recorded Date Recorded By Document 10/29/17 16:34 [id number] 10/29/17 16:40 Document 11/05/17 16:12 [id number] 11/05/17 16:13 Document 11/12/17 15:49 [id number] 11/12/17 15:52 10/29/17 11/05/17 11/12/17 16:34 16:12 15:49 Wound Center Nurse 2 #3 Left Ellison -Time 16:34 16:13 15:49 -Correct Patient Yes Yes Yes -Correct Side, Site, Position Yes Yes Yes -Correct Procedure Yes Yes Yes -Procedure Performed Yes Yes Yes -Type of Procedure Debridement Debridement Debridement -Clinical Debridement Subcutaneous Subcutaneous Subcutaneous -Post Debridement Size (cm) - Length 5.3 5.1 4.8 -Post Debridement Size (cm) - Width 3.1 2.8 2.4 -Post Debridement Size (cm) - Depth 0.1 0.1 0.1 -Total Square Cm 16.43 14.28 11.52 -Wound/Ulcer Outcome Not Healed Not Healed Not Healed -Ulcer Cleansing Rinsed/ Rinsed/ Rinsed/ Irrigated with Irrigated with Irrigated with Saline Saline Saline -Foul Odor after Cleansing No No No -Bioengineered Tissue No No -Topical Lidocaine (%) 4 4 -Bleeding Controlled with Pressure Pressure Pressure -Treatment Response Procedure Procedure Procedure Tolerated Well Tolerated Well Tolerated Well Pain Scale: 0-10 Numeric Is Patient Pain Free? Yes Yes Yes Wound debrided: leg Laterality: Left Type of Debridement: Excisional debridement Anesthesia Used: 4% Lidocaine Solution Depth: in the subcutaneous layer Percentage of wound debrided: 100 Instrument Used: #15 blade Tissue Removed: fibrous, devitalized subcutaneous, biofilm, slough Severity: Fat Layer Exposed Amount of bleeding with debridement: Mild Bleeding Controlled with: Pressure Patient tolerated procedure well Assessment/Plan Active Problems Lymphedema (Chronic) Delayed wound healing (Chronic) Localized edema (Chronic) Venous insufficiency of left leg (Chronic) Chronic ulcer of left lower extremity with fat layer exposed (Chronic) Malnutrition (Chronic) Assessment: Chronic and recurrent ulcer to the left ellison - stable, no infection. Venous insufficiency left lower extremity. lyphedema. non compliance. delayed healing Plan: I reviewed and discussed the case with the patient today. The ulcer site was debrided subcutaneously as noted in the clinical panel. She has completed a full course of epi fix. [place] was applied; to change every 1-2 days. An additional compression dressing, bilateral CircAid was applied. She did well with this last week. Compliance was reiterated today. She demonstrates application knowledge. She has been recently approved for lymphedema pump and I recommend continued use that she is already started this past week. . To resume nutritional supplementation to optimize healing. To avoid idle standing and sitting to help reduce fluid collection in the lower extremities. She was reassured no signs of infection noted today. To monitor. I recommend proceeding with vascular surgery referral reinitiation. Intervention has been recommended and she will proceed with setting this up with vascular surgery office as well as her transportation. It is noted that she has failed other conservative and advanced compression therapy is for over 6 months including elevation, Mikhail wrap, compression stockings, CircAid, and venous ablation. I am concerned her chronic venous insufficiency is now lymphedema and this is getting challenging to treat. Her CBC and CMP were reviewed. No leukocytosis is noted. Her albumin levels 3.6. To return to clinic in 1 week at the wound care center or call sooner if questions or concerns. I answered all of her questions today.
[2017-11-19 15:45] VITALS: BP 139/69; PULSE 68; RESP 18; TEMP 35.4
--- NOTE | 2017-11-19 16:55 | PCM.WC.PN ---
(1) Chronic ulcer of left lower extremity with fat layer exposed Status: Chronic Code(s): L97.922 - Non-pressure chronic ulcer of unspecified part of left lower leg with fat layer exposed (2) Lymphedema Status: Chronic Code(s): I89.0 - Lymphedema, not elsewhere classified (3) Delayed wound healing Status: Chronic Code(s): T14.8 - Other injury of unspecified body region (4) Localized edema Status: Chronic Code(s): R60.0 - Localized edema (5) Venous insufficiency of left leg Status: Chronic Code(s): I87.2 - Venous insufficiency (chronic) (peripheral) (6) Malnutrition Status: Chronic Code(s): E46 - Unspecified protein-calorie malnutrition Type of Wound Date of Service: 11/23/17 Chief Complaint: Chronic ulcer to the left lower extremity History of Wound: This 62 year old patient returns to the wound healing center for follow up of her chronic ulcer to her left ellison. She has continued bilateral lower extremity edema this is decreased the past week with her multilayer compression dressing. She did see vascular surgeon, Dr. Machado, and has venous intervention planned. The scheduling is pending her insurance prior authorization. I also recommend continued lymphedema pump use; she is doing well with this so far. To elevate limbs at rest and avoid idle sitting or standing. She continues to wear CircAid compression garment at work and denies problems. She denies fever, chill, nausea, vomiting, calf pain, or shortness of breath, or wound redness or odor. Progress of Wound: Stable - Physical Exam Vital Signs Temp Pulse Resp BP 95.7 F L 68 18 139/69 H 11/19/17 15:45 11/19/17 15:45 11/19/17 15:45 11/19/17 15:45 General: Alert, Oriented x3, Cooperative Extremities: No cyanosis, Capillary Refill Less than 3 Seconds, No Calf Tenderness - Negative Italo and Castillo sign bilateral, Diminished Peripheral Pulses, Edema - Bilateral lower extremity moderate with lymphedema type changes Skin: Ulcer/ Wound - No purulence, no erythema, streaking, odor, no infection, - - The peripheral skin is atrophic and hairless. The wound bed is granular Wound Measurements and Assessment WC - Nurse 1 - General Ulcer Measurement Start: 10/29/17 16:01 Freq: Status: Active Protocol: Activity Type Activity Date Activity User E-Sign Co-Sign Detail Recorded Client Recorded Date Recorded By Document 11/19/17 15:45 [id number] 11/19/17 16:04 CS 11/19/17 15:45 Wound Center Nurse 1 [Ulcer Assessment] #3 Left Ellison -Combined with other wound No -Current Size (cm) - Length 4.5 -Current Size (cm) - Width 1.8 -Current Size (cm) - Depth 0.1 -Total Square Cm 8.10 -Photo Taken No -Epithelialization Small 1-33% -Tunneling No -Undermining/Tunneling No -Circular Undermining No -Exudate Amt Medium (34-66%) -Exudate Type Serosanguineous -Wound Margin Flat & Intact -Granulation Amt Large (67-100%) -Granulation Quality Red -Slough/Fibrin Yes -Necrosis Amt Small (1-33%) -Necrotic Tissue Type Adherent Slough -Structure Exposed N/A -Texture (Jenny-wound Skin Appearance) Assessed Localized Edema Scarring -Moisture (Jenny-wound Skin Appearance Assessed ) Dry/Scaly -Color (Jenny-wound Skin Appearance) Assessed Hemosiderin Staining -Temperature (Jenyn-wound Skin No Abnormality Appearance) (Pt Warm) -Tenderness on Palpation (Jenny-wound No Skin Appearance) -Ulcer Cleansing Rinsed/ Irrigated with Saline -Foul Odor after Cleansing No -Anesthetic Used 4% Lidocaine Solution [Edema Assessment] -Lower Limb Edema Present Yes -Left Calf (cm) 50.7 -Left Ankle (cm) 28.7 WC - Nurse 2 - General Ulcer CM Notes Start: 10/29/17 16:01 Freq: Status: Active Protocol: Activity Type Activity Date Activity User E-Sign Co-Sign Detail Recorded Client Recorded Date Recorded By Document 11/19/17 16:25 [id number] 11/19/17 16:26 11/19/17 16:25 Wound Center Nurse 2 [Procedure/Treatment] #3 Left Ellison -Time 16:25 -Correct Patient Yes -Correct Side, Site, Position Yes -Correct Procedure Yes -Procedure Performed Yes -Type of Procedure Debridement -Clinical Debridement Subcutaneous -Post Debridement Size (cm) - Length 4.5 -Post Debridement Size (cm) - Width 1.9 -Post Debridement Size (cm) - Depth 0.1 -Total Square Cm 8.55 -Wound/Ulcer Outcome Not Healed -Ulcer Cleansing Rinsed/ Irrigated with Saline -Foul Odor after Cleansing No -Bioengineered Tissue No -Bleeding Controlled with Pressure -Treatment Response Procedure Tolerated Well [See Physician Procedure note for Specifics] Pain Scale: 0-10 Numeric [Pain] -Is Patient Pain Free? Yes Musculoskeletal: No Tenderness to Palpation of Joints or Extremities, Muscle Wasting Neurological: - - Lack of normal epicritic sensation light touch periwound left Psych/Mental Status: Normal Affect, Appropriate Debridement Note Post-Debridement Measurements/Treatment WC - Nurse 2 - General Ulcer CM Notes Start: 10/29/17 16:01 Freq: Status: Active Protocol: Activity Type Activity Date Activity User E-Sign Co-Sign Detail Recorded Client Recorded Date Recorded By Document 10/29/17 16:34 [id number] 10/29/17 16:40 Document 11/05/17 16:12 [id number] 11/05/17 16:13 Document 11/12/17 15:49 [id number] 11/12/17 15:52 Document 11/19/17 16:25 [id number] 11/19/17 16:26 10/29/17 11/05/17 11/12/17 16:34 16:12 15:49 Wound Center Nurse 2 #3 Left Ellison -Time 16:34 16:13 15:49 -Correct Patient Yes Yes Yes -Correct Side, Site, Position Yes Yes Yes -Correct Procedure Yes Yes Yes -Procedure Performed Yes Yes Yes -Type of Procedure Debridement Debridement Debridement -Clinical Debridement Subcutaneous Subcutaneous Subcutaneous -Post Debridement Size (cm) - Length 5.3 5.1 4.8 -Post Debridement Size (cm) - Width 3.1 2.8 2.4 -Post Debridement Size (cm) - Depth 0.1 0.1 0.1 -Total Square Cm 16.43 14.28 11.52 -Wound/Ulcer Outcome Not Healed Not Healed Not Healed -Ulcer Cleansing Rinsed/ Rinsed/ Rinsed/ Irrigated with Irrigated with Irrigated with Saline Saline Saline -Foul Odor after Cleansing No No No -Bioengineered Tissue No No -Topical Lidocaine (%) 4 4 -Bleeding Controlled with Pressure Pressure Pressure -Treatment Response Procedure Procedure Procedure Tolerated Well Tolerated Well Tolerated Well Pain Scale: 0-10 Numeric Is Patient Pain Free? Yes Yes Yes 11/19/17 16:25 Wound Center Nurse 2 #3 Left Ellison -Time 16:25 -Correct Patient Yes -Correct Side, Site, Position Yes -Correct Procedure Yes -Procedure Performed Yes -Type of Procedure Debridement -Clinical Debridement Subcutaneous -Post Debridement Size (cm) - Length 4.5 -Post Debridement Size (cm) - Width 1.9 -Post Debridement Size (cm) - Depth 0.1 -Total Square Cm 8.55 -Wound/Ulcer Outcome Not Healed -Ulcer Cleansing Rinsed/ Irrigated with Saline -Foul Odor after Cleansing No -Bioengineered Tissue No -Topical Lidocaine (%) -Bleeding Controlled with Pressure -Treatment Response Procedure Tolerated Well Pain Scale: 0-10 Numeric Is Patient Pain Free? Yes Wound debrided: leg Laterality: Left Type of Debridement: Excisional debridement Anesthesia Used: 4% Lidocaine Solution Depth: in the subcutaneous layer Percentage of wound debrided: 100 Instrument Used: #15 blade Tissue Removed: fibrous, devitalized subcutaneous tissue, biofilm, slough Severity: Fat Layer Exposed Amount of bleeding with debridement: Mild Bleeding Controlled with: Pressure Patient tolerated procedure well Assessment/Plan Assessment: Chronic and recurrent ulcer to the left ellison - stable, no infection. Venous insufficiency left lower extremity. lyphedema. non compliance. delayed healing Plan: I reviewed and discussed the case with the patient today. The ulcer site was debrided subcutaneously as noted in the clinical panel. She has completed a full course of epi fix. [place] was applied; to change every 1-2 days. An additional compression dressing, bilateral CircAid was applied. She demonstrates application knowledge. To continue lymphedema pumps as advised. . To resume nutritional supplementation to optimize healing. To avoid idle standing and sitting to help reduce fluid collection in the lower extremities. She was reassured no signs of infection noted today. To monitor. I recommend proceeding with vascular surgery intervention in the scheduling processes still pending. It is noted that she has failed other conservative and advanced compression therapy is for over 6 months including elevation, Mikhail wrap, compression stockings, CircAid, and venous ablation. I am concerned her chronic venous insufficiency is now lymphedema and this is getting challenging to treat. Her CBC and CMP were reviewed. No leukocytosis is noted. Her albumin levels 3.6. To return to clinic in 1 week at the wound care center or call sooner if questions or concerns. I answered all of her questions today.
[2017-11-26 16:16] VITALS: BP 148/74; PULSE 67; RESP 18; TEMP 36.6
--- NOTE | 2017-11-26 18:54 | PCM.WC.PN ---
(1) Chronic ulcer of left lower extremity with fat layer exposed Status: Chronic Current Visit: Yes Code(s): L97.922 - Non-pressure chronic ulcer of unspecified part of left lower leg with fat layer exposed (2) Lymphedema Status: Chronic Current Visit: Yes Code(s): I89.0 - Lymphedema, not elsewhere classified (3) Delayed wound healing Status: Chronic Current Visit: Yes Code(s): T14.8 - Other injury of unspecified body region (4) Localized edema Status: Chronic Current Visit: Yes Code(s): R60.0 - Localized edema (5) Venous insufficiency of left leg Status: Chronic Current Visit: Yes Code(s): I87.2 - Venous insufficiency (chronic) (peripheral) (6) Malnutrition Status: Chronic Current Visit: Yes Code(s): E46 - Unspecified protein-calorie malnutrition Type of Wound Date of Service: 11/26/17 Chief Complaint: Chronic ulcer to the left lower extremity History of Wound: This 62 year old patient returns to the wound healing center for follow up of her chronic ulcer to her left ellison. She has continued bilateral lower extremity edema this is decreased the past week with her multilayer compression dressing. She did see vascular surgeon, Dr. Machado, and has venous intervention planned for December 17 in [facility]. I also recommend continued lymphedema pump use; she is doing well with this so far. To elevate limbs at rest and avoid idle sitting or standing. She continues to wear CircAid compression garment at work and denies problems. She denies fever, chill, nausea, vomiting, calf pain, or shortness of breath, or wound redness or odor. Progress of Wound: Improving - Physical Exam Vital Signs Temp Pulse Resp BP 97.8 F 67 18 148/74 H 11/26/17 16:16 11/26/17 16:16 11/26/17 16:16 11/26/17 16:16 General: Alert, Oriented x3, Cooperative HEENT: Atraumatic Extremities: No cyanosis, Capillary Refill Less than 3 Seconds, No Calf Tenderness - Negative Italo and Castillo left, Edema, Peripheral Pulses Normal Skin: Ulcer/ Wound - No purulence, no erythema, streaking, no odor, no infection. The granular base is noted. Peripheral skin is atrophic and hairless and atrophic left lower extremity Wound Measurements and Assessment WC - Nurse 1 - General Ulcer Measurement Start: 10/29/17 16:01 Freq: Status: Active Protocol: Activity Type Activity Date Activity User E-Sign Co-Sign Detail Recorded Client Recorded Date Recorded By Document 11/26/17 16:16 DL [id number] 11/26/17 16:21 DL 11/26/17 16:16 Wound Center Nurse 1 [Ulcer Assessment] #3 Left Ellison -Current Size (cm) - Length 4.6 -Current Size (cm) - Width 2.2 -Current Size (cm) - Depth 0.1 -Total Square Cm 10.12 -Photo Taken No -Exudate Amt Medium (34-66%) -Exudate Type Serosanguineous -Wound Margin Distinct, Outline Attached -Granulation Amt Large (67-100%) -Granulation Quality Red -Necrosis Amt Small (1-33%) -Necrotic Tissue Type Adherent Slough -Structure Exposed N/A -Texture (Jenny-wound Skin Appearance) Scarring -Moisture (Jenny-wound Skin Appearance Dry/Scaly ) -Color (Jenny-wound Skin Appearance) Rubor -Temperature (Jenny-wound Skin No Abnormality Appearance) (Pt Warm) -Ulcer Cleansing Rinsed/ Irrigated with Saline -Foul Odor after Cleansing No -Anesthetic Used 4% Lidocaine Solution [Edema Assessment] -Left Calf (cm) 47 -Left Ankle (cm) 27.5 - Nurse 2 - General Ulcer CM Notes Start: 10/29/17 16:01 Freq: Status: Active Protocol: Activity Type Activity Date Activity User E-Sign Co-Sign Detail Recorded Client Recorded Date Recorded By Document 11/26/17 16:48 JEFF [id number] 11/26/17 16:49 11/26/17 16:48 Wound Center Nurse 2 [Procedure/Treatment] #3 Left Ellison -Time 16:48 -Correct Patient Yes -Correct Side, Site, Position Yes -Correct Procedure Yes -Procedure Performed Yes -Type of Procedure Debridement -Clinical Debridement Subcutaneous -Post Debridement Size (cm) - Length 4.6 -Post Debridement Size (cm) - Width 2.3 -Post Debridement Size (cm) - Depth 0.1 -Total Square Cm 10.58 -Wound/Ulcer Outcome Not Healed -Ulcer Cleansing Rinsed/ Irrigated with Saline -Foul Odor after Cleansing No -Bioengineered Tissue No -Bleeding Controlled with Pressure -Treatment Response Procedure Tolerated Well [See Physician Procedure note for Specifics] Pain Scale: 0-10 Numeric [Pain] -Is Patient Pain Free? Yes Musculoskeletal: No Tenderness to Palpation of Joints or Extremities, Muscle Wasting, - - Compartments remain soft her left leg. Lymphedema changes noted bilateral lower extremities Neurological: - - Lack of epicritic sensation light touch periwound left leg Psych/Mental Status: Normal Affect, Appropriate Debridement Note Post-Debridement Measurements/Treatment WC - Nurse 2 - General Ulcer CM Notes Start: 10/29/17 16:01 Freq: Status: Active Protocol: Activity Type Activity Date Activity User E-Sign Co-Sign Detail Recorded Client Recorded Date Recorded By Document 10/29/17 16:34 [id number] 10/29/17 16:40 TM Document 11/05/17 16:12 [id number] 11/05/17 16:13 TM Document 11/12/17 15:49 [id number] 11/12/17 15:52 Document 11/19/17 16:25 [id number] 11/19/17 16:26 Document 11/26/17 16:48 [id number] 11/26/17 16:49 10/29/17 11/05/17 11/12/17 16:34 16:12 15:49 Wound Center Nurse 2 #3 Left Ellison -Time 16:34 16:13 15:49 -Correct Patient Yes Yes Yes -Correct Side, Site, Position Yes Yes Yes -Correct Procedure Yes Yes Yes -Procedure Performed Yes Yes Yes -Type of Procedure Debridement Debridement Debridement -Clinical Debridement Subcutaneous Subcutaneous Subcutaneous -Post Debridement Size (cm) - Length 5.3 5.1 4.8 -Post Debridement Size (cm) - Width 3.1 2.8 2.4 -Post Debridement Size (cm) - Depth 0.1 0.1 0.1 -Total Square Cm 16.43 14.28 11.52 -Wound/Ulcer Outcome Not Healed Not Healed Not Healed -Ulcer Cleansing Rinsed/ Rinsed/ Rinsed/ Irrigated with Irrigated with Irrigated with Saline Saline Saline -Foul Odor after Cleansing No No No -Bioengineered Tissue No No -Topical Lidocaine (%) 4 4 -Bleeding Controlled with Pressure Pressure Pressure -Treatment Response Procedure Procedure Procedure Tolerated Well Tolerated Well Tolerated Well Pain Scale: 0-10 Numeric Is Patient Pain Free? Yes Yes Yes 11/19/17 11/26/17 16:25 16:48 Wound Center Nurse 2 #3 Left Ellison -Time 16:25 16:48 -Correct Patient Yes Yes -Correct Side, Site, Position Yes Yes -Correct Procedure Yes Yes -Procedure Performed Yes Yes -Type of Procedure Debridement Debridement -Clinical Debridement Subcutaneous Subcutaneous -Post Debridement Size (cm) - Length 4.5 4.6 -Post Debridement Size (cm) - Width 1.9 2.3 -Post Debridement Size (cm) - Depth 0.1 0.1 -Total Square Cm 8.55 10.58 -Wound/Ulcer Outcome Not Healed Not Healed -Ulcer Cleansing Rinsed/ Rinsed/ Irrigated with Irrigated with Saline Saline -Foul Odor after Cleansing No No -Bioengineered Tissue No No -Topical Lidocaine (%) -Bleeding Controlled with Pressure Pressure -Treatment Response Procedure Procedure Tolerated Well Tolerated Well Pain Scale: 0-10 Numeric Is Patient Pain Free? Yes Yes Wound debrided: leg Laterality: Left Type of Debridement: Excisional debridement Anesthesia Used: 4% Lidocaine Solution Depth: in the subcutaneous layer Percentage of wound debrided: 100 Instrument Used: #15 blade Tissue Removed: fibrous, devitalized subcutaneous, biofilm, slough Severity: Fat Layer Exposed Amount of bleeding with debridement: Mild Bleeding Controlled with: Pressure Patient tolerated procedure well Assessment/Plan Active Problems Lymphedema (Chronic) Delayed wound healing (Chronic) Localized edema (Chronic) Venous insufficiency of left leg (Chronic) Chronic ulcer of left lower extremity with fat layer exposed (Chronic) Malnutrition (Chronic) Assessment: Chronic and recurrent ulcer to the left ellison - stable, no infection. Venous insufficiency left lower extremity. lyphedema. non compliance. delayed healing Plan: I reviewed and discussed the case with the patient today. The ulcer site was debrided subcutaneously as noted in the clinical panel. She has completed a full course of epi fix. [place] was applied; to change every 1-2 days. An additional compression dressing, bilateral CircAid was applied. She demonstrates application knowledge. To continue lymphedema pumps as advised. . To resume nutritional supplementation to optimize healing. To avoid idle standing and sitting to help reduce fluid collection in the lower extremities. She was reassured no signs of infection noted today. To monitor. I recommend proceeding with vascular surgery intervention in this is scheduled in November with Dr. Machado at [facility]. It is noted that she has failed other conservative and advanced compression therapy is for over 6 months including elevation, Mikhail wrap, compression stockings, CircAid, and venous ablation. I am concerned her chronic venous insufficiency is now lymphedema and this is getting challenging to treat. Her CBC and CMP were reviewed. No leukocytosis is noted. Her albumin levels 3.6. To return to clinic in 1 week at the wound care center or call sooner if questions or concerns. I answered all of her questions today.
== END 2017-11-28 23:59 ==
LOC: WC 16:00
PROVIDERS: Family Provider Internal Medicine; PCP Internal Medicine; Visit Provider Podiatrist
DX: I87.2 Venous insufficiency (chronic) (peripheral) (principal); L97.822 Non-pressure chronic ulcer of other part of left lower leg with fat layer exposed; I89.0 Lymphedema, not elsewhere classified; R60.0 Localized edema; Z91.19 Patient's noncompliance with other medical treatment and regimen
CPT/HCPCS: 11042

== ENCOUNTER 2017-12-17 15:45 | Outpatient (RCR) | payer MEDICAID, SELFPAY ==
[2017-11-29 00:44] VITALS: BP 148/74; PULSE 67; RESP 18; TEMP 36.6
[2017-12-03 16:04] VITALS: BP 122/72; PULSE 67; RESP 20; TEMP 35.9
--- NOTE | 2017-12-03 16:42 | PN.PCM_ITS ---
(1) Chronic ulcer of left lower extremity with fat layer exposed Status: Chronic Code(s): L97.922 - Non-pressure chronic ulcer of unspecified part of left lower leg with fat layer exposed (2) Lymphedema Status: Chronic Code(s): I89.0 - Lymphedema, not elsewhere classified (3) Delayed wound healing Status: Chronic Code(s): T14.8 - Other injury of unspecified body region (4) Localized edema Status: Chronic Code(s): R60.0 - Localized edema (5) Venous insufficiency of left leg Status: Chronic Code(s): I87.2 - Venous insufficiency (chronic) (peripheral) Type of Wound Date of Service: 12/03/17 Chief Complaint: Chronic ulcer to the left lower extremity History of Wound: This 62 year old patient returns to the wound healing center for follow up of her chronic ulcer to her left ellison. She has continued bilateral lower extremity edema this is decreased the past week with her multilayer compression dressing. She did see vascular surgeon, Dr. Machado, and has venous intervention planned for December 17 in [facility]. I also recommend continued lymphedema pump use; she is doing well with this so far. To elevate limbs at rest and avoid idle sitting or standing. She continues to wear CircAid compression garment at work and denies problems. She denies fever, chill, nausea, vomiting, calf pain, or shortness of breath, or wound redness or odor. Progress of Wound: Improving - Physical Exam Vital Signs Temp Pulse Resp BP 96.6 F L 67 20 H 122/72 H 12/03/17 16:04 12/03/17 16:04 12/03/17 16:04 12/03/17 16:04 General: Alert, Oriented x3, Cooperative Extremities: No cyanosis, Capillary Refill Less than 3 Seconds, No Calf Tenderness, Diminished Peripheral Pulses, Edema Skin: Ulcer/ Wound - no purulence, no erythema, no streaking, no infection. atrophic peripheral skin noted Wound Measurements and Assessment WC - Nurse 1 - General Ulcer Measurement Start: 12/03/17 16:03 Freq: Status: Active Protocol: Activity Type Activity Date Activity User E-Sign Co-Sign Detail Recorded Client Recorded Date Recorded By Document 12/03/17 16:04 [email or web address] [id number] 12/03/17 16:08 JEFF 09/05/18 16:04 Wound Center Nurse 1 [Ulcer Assessment] #3 Left Ellison -Combined with other wound No -Current Size (cm) - Length 4.7 -Current Size (cm) - Width 3.0 -Current Size (cm) - Depth 0.1 -Total Square Cm 14.10 -Photo Taken No -Epithelialization Small 1-33% -Tunneling No -Undermining/Tunneling No -Circular Undermining No -Exudate Amt Medium (34-66%) -Exudate Type Serosanguineous -Wound Margin Flat & Intact -Granulation Amt Large (67-100%) -Granulation Quality Red -Slough/Fibrin Yes -Necrosis Amt Small (1-33%) -Necrotic Tissue Type Adherent Slough -Structure Exposed N/A -Texture (Jenny-wound Skin Appearance) Assessed Localized Edema Scarring -Moisture (Jenny-wound Skin Appearance Assessed ) Dry/Scaly -Color (Jenny-wound Skin Appearance) Assessed Hemosiderin Staining -Temperature (Jenny-wound Skin No Abnormality Appearance) (Pt Warm) -Tenderness on Palpation (Jenny-wound No Skin Appearance) -Ulcer Cleansing Rinsed/ Irrigated with Saline -Foul Odor after Cleansing No -Anesthetic Used 4% Lidocaine Solution [Edema Assessment] -Lower Limb Edema Present Yes -Left Calf (cm) 50.0 -Left Ankle (cm) 28.3 - Nurse 2 - General Ulcer CM Notes Start: 12/03/17 16:03 Freq: Status: Active Protocol: Activity Type Activity Date Activity User E-Sign Co-Sign Detail Recorded Client Recorded Date Recorded By Document 12/03/17 16:12 [id number] 12/03/17 16:14 12/03/17 16:12 Wound Center Nurse 2 [Procedure/Treatment] #3 Left Ellison -Time 16:13 -Correct Patient Yes -Correct Side, Site, Position Yes -Correct Procedure Yes -Procedure Performed Yes -Type of Procedure Debridement -Clinical Debridement Subcutaneous -Post Debridement Size (cm) - Length 4.8 -Post Debridement Size (cm) - Width 3.0 -Post Debridement Size (cm) - Depth 0.1 -Total Square Cm 14.40 -Wound/Ulcer Outcome Not Healed -Ulcer Cleansing Rinsed/ Irrigated with Saline -Foul Odor after Cleansing No -Bioengineered Tissue No -Bleeding Controlled with Pressure -Treatment Response Procedure Tolerated Well [See Physician Procedure note for Specifics] Pain Scale: 0-10 Numeric [Pain] -Is Patient Pain Free? Yes Musculoskeletal: No Tenderness to Palpation of Joints or Extremities, Muscle Wasting, - - lyphedema noted left Neurological: - - altered sensation to touch and debridement left ulcer site Psych/Mental Status: Normal Affect, Appropriate Debridement Note Post-Debridement Measurements/Treatment WC - Nurse 2 - General Ulcer CM Notes Start: 12/03/17 16:03 Freq: Status: Active Protocol: Activity Type Activity Date Activity User E-Sign Co-Sign Detail Recorded Client Recorded Date Recorded By Document 12/03/17 16:12 [id number] 12/03/17 16:14 JEFF 12/03/17 16:12 Wound Center Nurse 2 #3 Left Ellison -Time 16:13 -Correct Patient Yes -Correct Side, Site, Position Yes -Correct Procedure Yes -Procedure Performed Yes -Type of Procedure Debridement -Clinical Debridement Subcutaneous -Post Debridement Size (cm) - Length 4.8 -Post Debridement Size (cm) - Width 3.0 -Post Debridement Size (cm) - Depth 0.1 -Total Square Cm 14.40 -Wound/Ulcer Outcome Not Healed -Ulcer Cleansing Rinsed/ Irrigated with Saline -Foul Odor after Cleansing No -Bioengineered Tissue No -Bleeding Controlled with Pressure -Treatment Response Procedure Tolerated Well Pain Scale: 0-10 Numeric Is Patient Pain Free? Yes Wound debrided: leg Laterality: Left Type of Debridement: Excisional debridement Anesthesia Used: 4% Lidocaine Solution Depth: in the subcutaneous layer Percentage of wound debrided: 100 Instrument Used: #15 blade Tissue Removed: fibrous, devitalized subcutaneous, biofilm, slough Severity: Fat Layer Exposed Amount of bleeding with debridement: Mild Bleeding Controlled with: Pressure Patient tolerated procedure well Assessment/Plan Assessment: Chronic and recurrent ulcer to the left ellison - stable, no infection. Venous insufficiency left lower extremity. lyphedema. non compliance. delayed healing Plan: I reviewed and discussed the case with the patient today. The ulcer site was debrided subcutaneously as noted in the clinical panel. She has completed a full course of epi fix. [place] was applied; to change every 1-2 days. An additional compression dressing, bilateral CircAid was applied. She demonstrates application knowledge. To continue lymphedema pumps as advised. . To resume nutritional supplementation to optimize healing. To avoid idle standing and sitting to help reduce fluid collection in the lower extremities. She was reassured no signs of infection noted today. To monitor. I recommend proceeding with vascular surgery intervention in this is scheduled in November with Dr. Machado at [facility]. It is noted that she has failed other conservative and advanced compression therapy is for over 6 months including elevation, Mikhail wrap, compression stockings, CircAid, and venous ablation. I am concerned her chronic venous insufficiency is now lymphedema and this is getting challenging to treat. Her CBC and CMP were reviewed. No leukocytosis is noted. Her albumin levels 3.6. To return to clinic in 1 week at the wound care center or call sooner if questions or concerns. I answered all of her questions today.
[2017-12-10 16:02] VITALS: BP 135/73; PULSE 63; RESP 16; TEMP 36.6
--- NOTE | 2017-12-10 17:00 | PN.PCM_ITS ---
(1) Chronic ulcer of left lower extremity with fat layer exposed Status: Chronic Current Visit: Yes Code(s): L97.922 - Non-pressure chronic ulcer of unspecified part of left lower leg with fat layer exposed (2) Lymphedema Status: Chronic Current Visit: Yes Code(s): I89.0 - Lymphedema, not elsewhere classified (3) Delayed wound healing Status: Chronic Current Visit: Yes Code(s): T14.8 - Other injury of unspecified body region (4) Localized edema Status: Chronic Current Visit: Yes Code(s): R60.0 - Localized edema (5) Venous insufficiency of left leg Status: Chronic Current Visit: Yes Code(s): I87.2 - Venous insufficiency ( chronic) (peripheral) Type of Wound Date of Service: 12/10/17 Chief Complaint: Chronic ulcer to the left lower extremity History of Wound: This 62 year old patient returns to the wound healing center for follow up of her chronic ulcer to her left ellison. She has continued bilateral lower extremity edema this is decreased the past week with her multilayer compression dressing. She did see vascular surgeon, Dr. Machado, and has venous intervention planned for December 17 in [facility]. I also recommend continued lymphedema pump use; she is doing well with this so far. To elevate limbs at rest and avoid idle sitting or standing. She continues to wear CircAid compression garment at work and denies problems. She denies fever, chill, nausea, vomiting, calf pain, or shortness of breath, or wound redness or odor. Progress of Wound: Improving - Physical Exam Vital Signs Temp Pulse Resp BP 97.8 F 63 16 135/73 H 12/10/17 16:02 12/10/17 16:02 12/10/17 16:02 12/10/17 16:02 General: Alert, Oriented x3, Cooperative HEENT: Atraumatic Extremities: No cyanosis, Capillary Refill Less than 3 Seconds, No Calf Tenderness - Negative Italo and Castillo bilateral, Diminished Peripheral Pulses - Palpable DP left, Edema - Mild to moderate bilateral Skin: Ulcer/ Wound - No purulence, no erythema, streaking, odor, no infection, no exposed deep tissue left. The peripheral skin is atrophic Wound Measurements and Assessment WC - Nurse 1 - General Ulcer Measurement Start: 12/03/17 16:03 Freq: Status: Active Protocol: Activity Type Activity Date Activity User E-Sign Co-Sign Detail Recorded Client Recorded Date Recorded By Document 12/10/17 16:02 [id number] 12/10/17 16:04 CS 12/10/17 16:02 Wound Center Nurse 1 [Ulcer Assessment] #3 Left Ellison -Combined with other wound No -Current Size (cm) - Length 4.6 -Current Size (cm) - Width 2.9 -Current Size (cm) - Depth 0.1 -Total Square Cm 13.34 -Photo Taken No -Epithelialization Medium 34-66% -Tunneling No -Undermining/Tunneling No -Circular Undermining No -Exudate Amt Medium (34-66%) -Exudate Type Serosanguineous -Wound Margin Distinct, Outline Attached -Granulation Amt Medium (34-66%) -Granulation Quality Myrtle Red -Slough/Fibrin Yes -Necrosis Amt None Present (0 %) -Necrotic Tissue Type Adherent Slough -Structure Exposed None/Limited to Skin Breakdown -Texture (Jenny-wound Skin Appearance) No Abnormality Assessed -Moisture (Jenny-wound Skin Appearance No Abnormality ) Assessed -Color (Jenny-wound Skin Appearance) No Abnormality Assessed -Temperature (Jenny-wound Skin No Abnormality Appearance) (Pt Warm) -Tenderness on Palpation (Jenny-wound Yes Skin Appearance) -Ulcer Cleansing Rinsed/ Irrigated with Saline -Foul Odor after Cleansing No -Anesthetic Used 4% Lidocaine Solution [Edema Assessment] -Lower Limb Edema Present Yes -Left Calf (cm) 48 -Left Ankle (cm) 29 WC - Nurse 2 - General Ulcer CM Notes Start: 12/03/17 16:03 Freq: Status: Active Protocol: Activity Type Activity Date Activity User E-Sign Co-Sign Detail Recorded Client Recorded Date Recorded By Document 12/10/17 16:57 [id number] 12/10/17 16:59 12/10/17 16:57 Wound Center Nurse 2 [Procedure/Treatment] #3 Left Ellison -Time 16:58 -Correct Patient Yes -Correct Side, Site, Position Yes -Correct Procedure Yes -Procedure Performed Yes -Type of Procedure Debridement -Clinical Debridement Subcutaneous -Post Debridement Size (cm) - Length 4.6 -Post Debridement Size (cm) - Width 3 -Post Debridement Size (cm) - Depth 0.1 -Total Square Cm 13.8 -Wound/Ulcer Outcome Not Healed -Ulcer Cleansing Rinsed/ Irrigated with Saline -Foul Odor after Cleansing No -Bioengineered Tissue No -Bleeding Controlled with Pressure -Treatment Response Procedure Tolerated Well [See Physician Procedure note for Specifics] Pain Scale: 0-10 Numeric [Pain] -Is Patient Pain Free? Yes Musculoskeletal: No Tenderness to Palpation of Joints or Extremities, Muscle Wasting Neurological: - - Lack of epicritic sensation periwound left Psych/Mental Status: Normal Affect, Appropriate Debridement Note Post-Debridement Measurements/Treatment WC - Nurse 2 - General Ulcer CM Notes Start: 12/03/17 16:03 Freq: Status: Active Protocol: Activity Type Activity Date Activity User E-Sign Co-Sign Detail Recorded Client Recorded Date Recorded By Document 12/03/17 16:12 [id number] 12/03/17 16:14 Document 12/10/17 16:57 [id number] 12/10/17 16:59 12/03/17 12/10/17 16:12 16:57 Wound Center Nurse 2 #3 Left Ellison -Time 16:13 16:58 -Correct Patient Yes Yes -Correct Side, Site, Position Yes Yes -Correct Procedure Yes Yes -Procedure Performed Yes Yes -Type of Procedure Debridement Debridement -Clinical Debridement Subcutaneous Subcutaneous -Post Debridement Size (cm) - Length 4.8 4.6 -Post Debridement Size (cm) - Width 3.0 3 -Post Debridement Size (cm) - Depth 0.1 0.1 -Total Square Cm 14.40 13.8 -Wound/Ulcer Outcome Not Healed Not Healed -Ulcer Cleansing Rinsed/ Rinsed/ Irrigated with Irrigated with Saline Saline -Foul Odor after Cleansing No No -Bioengineered Tissue No No -Bleeding Controlled with Pressure Pressure -Treatment Response Procedure Procedure Tolerated Well Tolerated Well Pain Scale: 0-10 Numeric Is Patient Pain Free? Yes Yes Wound debrided: leg Laterality: Left Type of Debridement: Excisional debridement Anesthesia Used: 4% Lidocaine Solution Depth: in the subcutaneous layer Percentage of wound debrided: 100 Instrument Used: #15 blade Tissue Removed: fibrous , devitalized subcutaneous, biofilm, slough Severity: Fat Layer Exposed Amount of bleeding with debridement: Mild Bleeding Controlled with: Pressure Patient tolerated procedure well Assessment/Plan Active Problems Lymphedema (Chronic) Delayed wound healing (Chronic) Localized edema (Chronic) Venous insufficiency of left leg (Chronic) Chronic ulcer of left lower extremity with fat layer exposed (Chronic) Assessment: Chronic and recurrent ulcer to the left ellison - stable, no infection. Venous insufficiency left lower extremity. lyphedema. non compliance. delayed healing Plan: I reviewed and discussed the case with the patient today. The ulcer site was debrided subcutaneously as noted in the clinical panel. She has completed a full course of epi fix. [place] was applied; to change every 1-2 days. An additional compression dressing, bilateral CircAid was applied. She demonstrates application knowledge. To continue lymphedema pumps as advised. . To resume nutritional supplementation to optimize healing. To avoid idle standing and sitting to help reduce fluid collection in the lower extremities. She was reassured no signs of infection noted today. To monitor. I recommend proceeding with vascular surgery intervention in this is scheduled in November with Dr. Machado at [facility]. It is noted that she has failed other conservative and advanced compression therapy is for over 6 months including elevation, Mikhail wrap, compression stockings, CircAid, and venous ablation. I am concerned her chronic venous insufficiency is now lymphedema and this is getting challenging to treat. Her CBC and CMP were reviewed. No leukocytosis is noted. Her albumin levels 3.6. To return to clinic in 1 week at the wound care center or call sooner if questions or concerns. I answered all of her questions today.
[2017-12-17 15:41] VITALS: BP 128/71; PULSE 63; RESP 16; TEMP 36.6
--- NOTE | 2017-12-17 16:55 | PCM.WC.PN ---
(1) Chronic ulcer of left lower extremity with fat layer exposed Status: Chronic Code(s): L97.922 - Non-pressure chronic ulcer of unspecified part of left lower leg with fat layer exposed (2) Lymphedema Status: Chronic Code(s): I89.0 - Lymphedema, not elsewhere classified (3) Delayed wound healing Status: Chronic Code(s): T14.8 - Other injury of unspecified body region (4) Localized edema Status: Chronic Code(s): R60.0 - Localized edema (5) Venous insufficiency of left leg Status: Chronic Code(s): I87.2 - Venous insufficiency (chronic) (peripheral) Type of Wound Date of Service: 12/20/17 Chief Complaint: Chronic ulcer to the left lower extremity History of Wound: This 62 year old patient returns to the wound healing center for follow up of her chronic ulcer to her left ellison. She has continued bilateral lower extremity edema this is decreased the past week with her multilayer compression dressing. She did see vascular surgeon, Dr. Machado, and has venous intervention planned for next week in [facility]. I also recommend continued lymphedema pump use; she is doing well with this so far. To elevate limbs at rest and avoid idle sitting or standing. She continues to wear CircAid compression garment at work and denies problems. She denies fever, chill, nausea, vomiting, calf pain, or shortness of breath, or wound redness or odor. Progress of Wound: Improving - Physical Exam Vital Signs Temp Pulse Resp BP 97.8 F 63 16 128/71 H 12/17/17 15:41 12/17/17 15:41 12/17/17 15:41 12/17/17 15:41 General: Alert, Oriented x3, Cooperative Extremities: No cyanosis, Capillary Refill Less than 3 Seconds, No Calf Tenderness - negative tonya and palencia signs bilateral, Diminished Peripheral Pulses, Edema Skin: Ulcer/ Wound - no purulence, no erythema, no eschar, no deep tissue exposed left. atrophic skin peripherally is noted Wound Measurements and Assessment WC - Nurse 1 - General Ulcer Measurement Start: 12/03/17 16:03 Freq: Status: Active Protocol: Activity Type Activity Date Activity User E-Sign Co-Sign Detail Recorded Client Recorded Date Recorded By Document 12/17/17 15:41 DL [id number] 12/17/17 15:51 DL 12/17/17 15:41 Wound Center Nurse 1 [Ulcer Assessment] #3 Left Ellison -Combined with other wound No -Current Size (cm) - Length 3.8 -Current Size (cm) - Width 2.7 -Current Size (cm) - Depth 0.2 -Total Square Cm 10.26 -Date of Last Picture (Recall this 12/17/17 field) -Photo Taken Yes -Epithelialization Small 1-33% -Tunneling No -Undermining/Tunneling No -Circular Undermining No -Exudate Amt Medium (34-66%) -Exudate Type Serosanguineous -Wound Margin Distinct, Outline Attached -Granulation Amt Large (67-100%) -Granulation Quality Red -Slough/Fibrin Yes -Necrosis Amt Small (1-33%) -Necrotic Tissue Type Adherent Slough -Texture (Jenny-wound Skin Appearance) Scarring -Moisture (Jenny-wound Skin Appearance Maceration ) Dry/Scaly -Color (Jenny-wound Skin Appearance) Erythema Palor -Temperature (Jenny-wound Skin No Abnormality Appearance) (Pt Warm) -Tenderness on Palpation (Jenny-wound No Skin Appearance) -Ulcer Cleansing Rinsed/ Irrigated with Saline -Foul Odor after Cleansing No -Anesthetic Used 4% Lidocaine Solution [Edema Assessment] -Lower Limb Edema Present Yes -Left Calf (cm) 47.9 -Left Ankle (cm) 29.5 WC - Nurse 2 - General Ulcer CM Notes Start: 12/03/17 16:03 Freq: Status: Active Protocol: Activity Type Activity Date Activity User E-Sign Co-Sign Detail Recorded Client Recorded Date Recorded By Document 12/17/17 16:14 [id number] 12/17/17 16:14 12/17/17 16:14 Wound Center Nurse 2 [Procedure/Treatment] #3 Left Ellison -Time 16:14 -Correct Patient Yes -Correct Side, Site, Position Yes -Correct Procedure Yes -Procedure Performed Yes -Type of Procedure Debridement -Clinical Debridement Subcutaneous -Post Debridement Size (cm) - Length 3.8 -Post Debridement Size (cm) - Width 2.8 -Post Debridement Size (cm) - Depth 0.2 -Total Square Cm 10.64 -Wound/Ulcer Outcome Not Healed -Ulcer Cleansing Rinsed/ Irrigated with Saline -Foul Odor after Cleansing No -Bioengineered Tissue No -Bleeding Controlled with Pressure -Treatment Response Procedure Tolerated Well [See Physician Procedure note for Specifics] Pain Scale: 0-10 Numeric [Pain] -Is Patient Pain Free? Yes Musculoskeletal: No Tenderness to Palpation of Joints or Extremities, Muscle Wasting Neurological: - - lack of epicritic sensation via light touch Psych/Mental Status: Normal Affect, Appropriate Debridement Note Post-Debridement Measurements/Treatment WC - Nurse 2 - General Ulcer CM Notes Start: 12/03/17 16:03 Freq: Status: Active Protocol: Activity Type Activity Date Activity User E-Sign Co-Sign Detail Recorded Client Recorded Date Recorded By Document 12/03/17 16:12 [id number] 12/03/17 16:14 Document 12/10/17 16:57 [id number] 12/10/17 16:59 Document 12/17/17 16:14 [id number] 12/17/17 16:14 12/03/17 12/10/17 12/17/17 16:12 16:57 16:14 Wound Center Nurse 2 #3 Left Ellison -Time 16:13 16:58 16:14 -Correct Patient Yes Yes Yes -Correct Side, Site, Position Yes Yes Yes -Correct Procedure Yes Yes Yes -Procedure Performed Yes Yes Yes -Type of Procedure Debridement Debridement Debridement -Clinical Debridement Subcutaneous Subcutaneous Subcutaneous -Post Debridement Size (cm) - Length 4.8 4.6 3.8 -Post Debridement Size (cm) - Width 3.0 3 2.8 -Post Debridement Size (cm) - Depth 0.1 0.1 0.2 -Total Square Cm 14.40 13.8 10.64 -Wound/Ulcer Outcome Not Healed Not Healed Not Healed -Ulcer Cleansing Rinsed/ Rinsed/ Rinsed/ Irrigated with Irrigated with Irrigated with Saline Saline Saline -Foul Odor after Cleansing No No No -Bioengineered Tissue No No No -Bleeding Controlled with Pressure Pressure Pressure -Treatment Response Procedure Procedure Procedure Tolerated Well Tolerated Well Tolerated Well Pain Scale: 0-10 Numeric Is Patient Pain Free? Yes Yes Yes Wound debrided: leg Laterality: Left Type of Debridement: Excisional debridement Anesthesia Used: 4% Lidocaine Solution Depth: in the subcutaneous layer Percentage of wound debrided: 100 Instrument Used: #15 blade Tissue Removed: fibrous, devitalized subcutaneous, biofilm, slough Severity: Fat Layer Exposed Amount of bleeding with debridement: Mild Bleeding Controlled with: Pressure Patient tolerated procedure well Assessment/Plan Assessment: Chronic and recurrent ulcer to the left ellison - stable, no infection. Venous insufficiency left lower extremity. lyphedema. non compliance. delayed healing Plan: I reviewed and discussed the case with the patient today. The ulcer site was debrided subcutaneously as noted in the clinical panel. She has completed a full course of epi fix. [place] was applied; to change every 1-2 days. An additional compression dressing, bilateral CircAid was applied. She demonstrates application knowledge. To continue lymphedema pumps as advised. . To resume nutritional supplementation to optimize healing. To avoid idle standing and sitting to help reduce fluid collection in the lower extremities. She was reassured no signs of infection noted today. To monitor. I recommend proceeding with vascular surgery intervention in this is scheduled in November with Dr. Machado at [facility]. It is noted that she has failed other conservative and advanced compression therapy is for over 6 months including elevation, Mikhail wrap, compression stockings, CircAid, and venous ablation. I am concerned her chronic venous insufficiency is now lymphedema and this is getting challenging to treat. Her CBC and CMP were reviewed. No leukocytosis is noted. Her albumin levels 3.6. To return to clinic in 1 week at the wound care center or call sooner if questions or concerns. I answered all of her questions today.
== END 2017-12-28 23:59 ==
LOC: WC 15:45
PROVIDERS: Family Provider Internal Medicine; PCP Internal Medicine; Visit Provider Podiatrist
DX: I87.2 Venous insufficiency (chronic) (peripheral) (principal); L97.822 Non-pressure chronic ulcer of other part of left lower leg with fat layer exposed; I89.0 Lymphedema, not elsewhere classified; R60.0 Localized edema; Z91.19 Patient's noncompliance with other medical treatment and regimen
CPT/HCPCS: 11042

== ENCOUNTER 2018-01-28 16:00 | Outpatient (RCR) | payer MEDICAID, SELFPAY ==
[2017-12-29 00:38] VITALS: BP 128/71; PULSE 63; RESP 16; TEMP 36.6
[2017-12-31 15:58] VITALS: BP 153/81; PULSE 66; RESP 18; TEMP 36.2
--- NOTE | 2017-12-31 17:15 | PCM.WC.PN ---
(1) Chronic ulcer of left lower extremity with fat layer exposed Status: Chronic Code(s): L97.922 - Non-pressure chronic ulcer of unspecified part of left lower leg with fat layer exposed (2) Lymphedema Status: Chronic Code(s): I89.0 - Lymphedema, not elsewhere classified (3) Delayed wound healing Status: Chronic Code(s): T14.8 - Other injury of unspecified body region (4) Localized edema Status: Chronic Code(s): R60.0 - Localized edema (5) Malnutrition Status: Chronic Code(s): E46 - Unspecified protein-calorie malnutrition Type of Wound Date of Service: 12/31/17 Chief Complaint: Chronic ulcer to the left lower extremity History of Wound: This 62 year old patient returns to the wound healing center for follow up of her chronic ulcer to her left ellison. She has continued bilateral lower extremity edema this is decreased the past week with her multilayer compression dressing. She did see vascular surgeon, Dr. Machado, and has venous intervention planned for next week in [facility]. I also recommend continued lymphedema pump use; she is doing well with this so far. To elevate limbs at rest and avoid idle sitting or standing. She continues to wear CircAid compression garment at work and denies problems. She denies fever, chill, nausea, vomiting, calf pain, or shortness of breath, or wound redness or odor. Progress of Wound: Improving - Physical Exam Vital Signs Temp Pulse Resp BP 97.1 F L 66 18 153/81 H 12/31/17 15:58 12/31/17 15:58 12/31/17 15:58 12/31/17 15:58 General: Alert, Oriented x3, Cooperative Extremities: No cyanosis, Capillary Refill Less than 3 Seconds, No Calf Tenderness - negative tonya and palencia bilateral, Diminished Peripheral Pulses, Edema Skin: Ulcer/ Wound - no purluence, no erythema, no streaking, no infection, no deep tissue exposed, - - peripheral skin is hyperpigmented, hairless, atrophic Wound Measurements and Assessment WC - Nurse 1 - General Ulcer Measurement Start: 12/31/17 15:58 Freq: Status: Active Protocol: Activity Type Activity Date Activity User E-Sign Co-Sign Detail Recorded Client Recorded Date Recorded By Document 12/31/17 15:58 [id number] 12/31/17 15:59 12/31/17 15:58 Wound Center Nurse 1 [Ulcer Assessment] #3 Left Ellison -Combined with other wound No -Current Size (cm) - Length 3.3 -Current Size (cm) - Width 2.4 -Current Size (cm) - Depth 0.1 -Total Square Cm 7.92 -Photo Taken No -Epithelialization Medium 34-66% -Tunneling No -Undermining/Tunneling No -Circular Undermining No -Exudate Amt Small (1-33%) -Exudate Type Serosanguineous -Wound Margin Flat & Intact -Granulation Amt Large (67-100%) -Granulation Quality Red -Slough/Fibrin Yes -Necrosis Amt Small (1-33%) -Necrotic Tissue Type Adherent Slough -Structure Exposed N/A -Texture (Jenny-wound Skin Appearance) Assessed Localized Edema Scarring -Moisture (Jenny-wound Skin Appearance Assessed ) Dry/Scaly -Color (Jenny-wound Skin Appearance) Ecchymosis -Temperature (Jenny-wound Skin No Abnormality Appearance) (Pt Warm) -Tenderness on Palpation (Jenny-wound No Skin Appearance) -Ulcer Cleansing Rinsed/ Irrigated with Saline -Foul Odor after Cleansing No -Anesthetic Used 5% Lidocaine Gel [Edema Assessment] -Lower Limb Edema Present Yes -Left Calf (cm) 49.6 -Left Ankle (cm) 27.8 WC - Nurse 2 - General Ulcer CM Notes Start: 12/31/17 15:58 Freq: Status: Active Protocol: Activity Type Activity Date Activity User E-Sign Co-Sign Detail Recorded Client Recorded Date Recorded By Document 12/31/17 16:21 [id number] 12/31/17 16:22 12/31/17 16:21 Wound Center Nurse 2 [Procedure/Treatment] #3 Left Ellison -Time 16:21 -Correct Patient Yes -Correct Side, Site, Position Yes -Correct Procedure Yes -Procedure Performed Yes -Type of Procedure Debridement -Clinical Debridement Subcutaneous -Post Debridement Size (cm) - Length 3.4 -Post Debridement Size (cm) - Width 2.4 -Post Debridement Size (cm) - Depth 0.2 -Total Square Cm 8.16 -Wound/Ulcer Outcome Not Healed -Ulcer Cleansing Rinsed/ Irrigated with Saline -Foul Odor after Cleansing No -Bioengineered Tissue No -Topical Lidocaine (%) 5 -Bleeding Controlled with Pressure -Treatment Response Procedure Tolerated Well [See Physician Procedure note for Specifics] Pain Scale: 0-10 Numeric [Pain] -Is Patient Pain Free? Yes Musculoskeletal: No Tenderness to Palpation of Joints or Extremities, Muscle Wasting Neurological: - - decreased sensation to light touch noted Psych/Mental Status: Normal Affect, Appropriate Debridement Note Post-Debridement Measurements/Treatment WC - Nurse 2 - General Ulcer CM Notes Start: 12/31/17 15:58 Freq: Status: Active Protocol: Activity Type Activity Date Activity User E-Sign Co-Sign Detail Recorded Client Recorded Date Recorded By Document 12/31/17 16:21 [id number] 12/31/17 16:22 TM 12/31/17 16:21 Wound Center Nurse 2 #3 Left Ellison -Time 16:21 -Correct Patient Yes -Correct Side, Site, Position Yes -Correct Procedure Yes -Procedure Performed Yes -Type of Procedure Debridement -Clinical Debridement Subcutaneous -Post Debridement Size (cm) - Length 3.4 -Post Debridement Size (cm) - Width 2.4 -Post Debridement Size (cm) - Depth 0.2 -Total Square Cm 8.16 -Wound/Ulcer Outcome Not Healed -Ulcer Cleansing Rinsed/ Irrigated with Saline -Foul Odor after Cleansing No -Bioengineered Tissue No -Topical Lidocaine (%) 5 -Bleeding Controlled with Pressure -Treatment Response Procedure Tolerated Well Pain Scale: 0-10 Numeric Is Patient Pain Free? Yes Wound debrided: leg Laterality: Left Type of Debridement: Excisional debridement Anesthesia Used: 4% Lidocaine Solution Depth: in the subcutaneous layer Percentage of wound debrided: 100 Instrument Used: #15 blade Tissue Removed: fibrous, devitalized subcutaneous, biofilm, slough Severity: Fat Layer Exposed Amount of bleeding with debridement: Mild Bleeding Controlled with: Pressure Patient tolerated procedure well Assessment/Plan Assessment: Chronic and recurrent ulcer to the left ellison - stable, no infection. Venous insufficiency left lower extremity. lyphedema. non compliance. delayed healing Plan: I reviewed and discussed the case with the patient today. The ulcer site was debrided subcutaneously as noted in the clinical panel. She has completed a full course of epi fix. [place] was applied; to change every 1-2 days. An additional compression dressing, bilateral CircAid was applied. She demonstrates application knowledge. To continue lymphedema pumps as advised. . To continue nutritional supplementation to optimize healing. To avoid idle standing and sitting to help reduce fluid collection in the lower extremities. She was reassured no signs of infection noted today. To monitor. I recommend proceeding with vascular surgery intervention in this is scheduled in November with Dr. Machado at [facility]. It is noted that she has failed other conservative and advanced compression therapy is for over 6 months including elevation, Mikhail wrap, compression stockings, CircAid, and venous ablation. I am concerned her chronic venous insufficiency is now lymphedema and this is getting challenging to treat. Her CBC and CMP were reviewed. No leukocytosis is noted. Her albumin levels 3.6. To return to clinic in 1 week at the wound care center or call sooner if questions or concerns. I answered all of her questions today.
[2018-01-07 15:44] VITALS: BP 137/75; PULSE 69; RESP 18; TEMP 36.6
--- NOTE | 2018-01-07 17:06 | PCM.WC.PN ---
(1) Chronic ulcer of left lower extremity with fat layer exposed Status: Chronic Current Visit: No Code(s): L97.922 - Non-pressure chronic ulcer of unspecified part of left lower leg with fat layer exposed (2) Lymphedema Status: Chronic Current Visit: No Code(s): I89.0 - Lymphedema, not elsewhere classified (3) Delayed wound healing Status: Chronic Current Visit: No Code(s): T14.8 - Other injury of unspecified body region (4) Localized edema Status: Chronic Current Visit: No Code(s): R60.0 - Localized edema (5) Malnutrition Status: Chronic Current Visit: No Code(s): E46 - Unspecified protein-calorie malnutrition (6) Venous insufficiency (chronic) (peripheral) Status: Chronic Current Visit: Yes Code(s): I87.2 - Venous insufficiency (chronic) (peripheral) Type of Wound Date of Service: 01/07/18 Chief Complaint: Chronic ulcer to the left lower extremity History of Wound: This 62 year old patient returns to the wound healing center for follow up of her chronic ulcer to her left ellison. She has continued bilateral lower extremity edema this is decreased the past week with her multilayer compression dressing. She did see vascular surgeon, Dr. Machado, and has venous intervention planned for next week in [facility]. I also recommend continued lymphedema pump use; she is doing well with this so far. To elevate limbs at rest and avoid idle sitting or standing. She continues to wear CircAid compression garment at work and denies problems. She denies fever, chill, nausea, vomiting, calf pain, or shortness of breath, or wound redness or odor. Progress of Wound: Improving - Physical Exam Vital Signs Temp Pulse Resp BP 97.8 F 69 18 137/75 H 01/07/18 15:44 01/07/18 15:44 01/07/18 15:44 01/07/18 15:44 General: Alert, Oriented x3, Cooperative Extremities: No cyanosis, Capillary Refill Less than 3 Seconds, No Calf Tenderness - Negative Italo and Castillo sign left, Diminished Peripheral Pulses, Edema - Left lower extremity continued with hyperpigmentation. Ulcer site Skin: Ulcer/ Wound - No purulence, erythema, streaking, odor, eschar, or deep tissue exposure noted. There is some central ulcer site epithelialization bridging noted. The peripheral skin is hairless and atrophic Wound Measurements and Assessment - Nurse 1 - General Ulcer Measurement Start: 12/31/17 15:58 Freq: Status: Active Protocol: Activity Type Activity Date Activity User E-Sign Co-Sign Detail Recorded Client Recorded Date Recorded By Document 01/07/18 15:44 [id number] 01/07/18 15:49 01/07/18 15:44 Wound Center Nurse 1 [Ulcer Assessment] #3 Left Ellison -Combined with other wound No -Current Size (cm) - Length 3.6 -Current Size (cm) - Width 2.5 -Current Size (cm) - Depth 0.1 -Total Square Cm 9.00 -Photo Taken No -Epithelialization Small 1-33% -Tunneling No -Undermining/Tunneling No -Circular Undermining No -Exudate Amt Medium (34-66%) -Exudate Type Serosanguineous -Wound Margin Flat & Intact -Granulation Amt Large (67-100%) -Granulation Quality Red -Slough/Fibrin Yes -Necrosis Amt Small (1-33%) -Necrotic Tissue Type Adherent Slough -Structure Exposed N/A -Texture (Jenny-wound Skin Appearance) Assessed Scarring -Moisture (Jenny-wound Skin Appearance Assessed ) Dry/Scaly -Color (Jenny-wound Skin Appearance) Assessed Hemosiderin Staining -Temperature (Jenny-wound Skin No Abnormality Appearance) (Pt Warm) -Tenderness on Palpation (Jenny-wound No Skin Appearance) -Ulcer Cleansing Rinsed/ Irrigated with Saline -Foul Odor after Cleansing No -Anesthetic Used 4% Lidocaine Solution [Edema Assessment] -Lower Limb Edema Present Yes -Left Calf (cm) 47.6 -Left Ankle (cm) 30.0 - Nurse 2 - General Ulcer CM Notes Start: 12/31/17 15:58 Freq: Status: Active Protocol: Activity Type Activity Date Activity User E-Sign Co-Sign Detail Recorded Client Recorded Date Recorded By Document 01/07/18 15:55 [id number] 01/07/18 15:56 01/07/18 15:55 Wound Center Nurse 2 [Procedure/Treatment] #3 Left Ellison -Time 15:55 -Correct Patient Yes -Correct Side, Site, Position Yes -Correct Procedure Yes -Procedure Performed Yes -Type of Procedure Debridement -Clinical Debridement Subcutaneous -Post Debridement Size (cm) - Length 3.6 -Post Debridement Size (cm) - Width 2.6 -Post Debridement Size (cm) - Depth 0.1 -Total Square Cm 9.36 -Wound/Ulcer Outcome Not Healed -Ulcer Cleansing Rinsed/ Irrigated with Saline -Foul Odor after Cleansing No -Bioengineered Tissue No -Bleeding Controlled with Pressure -Treatment Response Procedure Tolerated Well [See Physician Procedure note for Specifics] Pain Scale: 0-10 Numeric [Pain] -Is Patient Pain Free? Yes Musculoskeletal: No Tenderness to Palpation of Joints or Extremities, Muscle Wasting, - - Compartments left lower extremity remains soft Neurological: Sensory exam intact to light touch and pain Psych/Mental Status: Normal Affect, Appropriate Debridement Note Post-Debridement Measurements/Treatment WC - Nurse 2 - General Ulcer CM Notes Start: 12/31/17 15:58 Freq: Status: Active Protocol: Activity Type Activity Date Activity User E-Sign Co-Sign Detail Recorded Client Recorded Date Recorded By Document 12/31/17 16:21 [id number] 12/31/17 16:22 Document 01/07/18 15:55 [id number] 01/07/18 15:56 12/31/17 01/07/18 16:21 15:55 Wound Center Nurse 2 #3 Left Ellison -Time 16:21 15:55 -Correct Patient Yes Yes -Correct Side, Site, Position Yes Yes -Correct Procedure Yes Yes -Procedure Performed Yes Yes -Type of Procedure Debridement Debridement -Clinical Debridement Subcutaneous Subcutaneous -Post Debridement Size (cm) - Length 3.4 3.6 -Post Debridement Size (cm) - Width 2.4 2.6 -Post Debridement Size (cm) - Depth 0.2 0.1 -Total Square Cm 8.16 9.36 -Wound/Ulcer Outcome Not Healed Not Healed -Ulcer Cleansing Rinsed/ Rinsed/ Irrigated with Irrigated with Saline Saline -Foul Odor after Cleansing No No -Bioengineered Tissue No No -Topical Lidocaine (%) 5 -Bleeding Controlled with Pressure Pressure -Treatment Response Procedure Procedure Tolerated Well Tolerated Well Pain Scale: 0-10 Numeric Is Patient Pain Free? Yes Yes Wound debrided: leg Laterality: Left Type of Debridement: Excisional debridement Anesthesia Used: 4% Lidocaine Solution Depth: in the subcutaneous layer Percentage of wound debrided: 100 Instrument Used: #15 blade Tissue Removed: fibrous, devitalized subcutaneous, biofilm, slough Severity: Fat Layer Exposed Amount of bleeding with debridement: Mild Bleeding Controlled with: Pressure Patient tolerated procedure well Assessment/Plan Active Problems Venous insufficiency (chronic) (peripheral) (Chronic) Assessment: Chronic and recurrent ulcer to the left ellison - stable, no infection. Venous insufficiency left lower extremity. lyphedema. non compliance. delayed healing Plan: I reviewed and discussed the case with the patient today. The ulcer site was debrided subcutaneously as noted in the clinical panel. She has completed a full course of epi fix. Alexandria was applied; to change every 1-2 days. An additional compression dressing, bilateral CircAid was applied. She demonstrates application knowledge. To continue lymphedema pumps as advised. . To continue nutritional supplementation to optimize healing. To avoid idle standing and sitting to help reduce fluid collection in the lower extremities. She was reassured no signs of infection noted today. To monitor. I recommend proceeding with vascular surgery intervention in this is scheduled in November with Dr. Machado at [facility]. It is noted that she has failed other conservative and advanced compression therapy is for over 6 months including elevation, Mikhail wrap, compression stockings, CircAid, and venous ablation. I am concerned her chronic venous insufficiency is now lymphedema and this is getting challenging to treat. Her CBC and CMP were reviewed. No leukocytosis is noted. Her albumin levels 3.6. To return to clinic in 1 week at the wound care center or call sooner if questions or concerns. I answered all of her questions today.
--- NOTE | 2018-01-07 17:09 | PN.PCM_ITS ---
(1) Chronic ulcer of left lower extremity with fat layer exposed Status: Chronic Current Visit: No Code(s): L97.922 - Non-pressure chronic ulcer of unspecified part of left lower leg with fat layer exposed (2) Lymphedema Status: Chronic Current Visit: No Code(s): I89.0 - Lymphedema, not elsewhere classified (3) Delayed wound healing Status: Chronic Current Visit: No Code(s): T14.8 - Other injury of unspecified body region (4) Localized edema Status: Chronic Current Visit: No Code(s): R60.0 - Localized edema (5) Malnutrition Status: Chronic Current Visit: No Code(s): E46 - Unspecified protein-calorie malnutrition (6) Venous insufficiency (chronic) (peripheral) Status: Chronic Current Visit: Yes Code(s): I87.2 - Venous insufficiency (chronic) (peripheral) Type of Wound Date of Service: 01/07/18 Chief Complaint: Chronic ulcer to the left lower extremity History of Wound: This 62 year old patient returns to the wound healing center for follow up of her chronic ulcer to her left ellison. She has continued bilateral lower extremity edema this is decreased the past week with her multilayer compression dressing. She did see vascular surgeon, Dr. Machado, and has venous intervention planned for next week in [facility]. I also recommend continued lymphedema pump use; she is doing well with this so far. To elevate limbs at rest and avoid idle sitting or standing. She continues to wear CircAid compression garment at work and denies problems. She denies fever, chill, nausea, vomiting, calf pain, or shortness of breath, or wound redness or odor. Progress of Wound: Improving - Physical Exam Vital Signs Temp Pulse Resp BP 97.8 F 69 18 137/75 H 01/07/18 15:44 01/07/18 15:44 01/07/18 15:44 01/07/18 15:44 General: Alert, Oriented x3, Cooperative Extremities: No cyanosis, Capillary Refill Less than 3 Seconds, No Calf Tenderness - Negative Italo and Castillo sign left, Diminished Peripheral Pulses, Edema - Left lower extremity continued with hyperpigmentation. Ulcer site Skin: Ulcer/ Wound - No purulence, erythema, streaking, odor, eschar, or deep tissue exposure noted. There is some central ulcer site epithelialization bridging noted. The peripheral skin is hairless and atrophic Wound Measurements and Assessment - Nurse 1 - General Ulcer Measurement Start: 12/31/17 15:58 Freq: Status: Active Protocol: Activity Type Activity Date Activity User E-Sign Co-Sign Detail Recorded Client Recorded Date Recorded By Document 01/07/18 15:44 [id number] 01/07/18 15:49 01/07/18 15:44 Wound Center Nurse 1 [Ulcer Assessment] #3 Left Ellison -Combined with other wound No -Current Size (cm) - Length 3.6 -Current Size (cm) - Width 2.5 -Current Size (cm) - Depth 0.1 -Total Square Cm 9.00 -Photo Taken No -Epithelialization Small 1-33% -Tunneling No -Undermining/Tunneling No -Circular Undermining No -Exudate Amt Medium (34-66%) -Exudate Type Serosanguineous -Wound Margin Flat & Intact -Granulation Amt Large (67-100%) -Granulation Quality Red -Slough/Fibrin Yes -Necrosis Amt Small (1-33%) -Necrotic Tissue Type Adherent Slough -Structure Exposed N/A -Texture (Jenny-wound Skin Appearance) Assessed Scarring -Moisture (Jenny-wound Skin Appearance Assessed ) Dry/Scaly -Color (Jenny-wound Skin Appearance) Assessed Hemosiderin Staining -Temperature (Jenny-wound Skin No Abnormality Appearance) (Pt Warm) -Tenderness on Palpation (Jenny-wound No Skin Appearance) -Ulcer Cleansing Rinsed/ Irrigated with Saline -Foul Odor after Cleansing No -Anesthetic Used 4% Lidocaine Solution [Edema Assessment] -Lower Limb Edema Present Yes -Left Calf (cm) 47.6 -Left Ankle (cm) 30.0 - Nurse 2 - General Ulcer CM Notes Start: 12/31/17 15:58 Freq: Status: Active Protocol: Activity Type Activity Date Activity User E-Sign Co-Sign Detail Recorded Client Recorded Date Recorded By Document 01/07/18 15:55 [id number] 01/07/18 15:56 01/07/18 15:55 Wound Center Nurse 2 [Procedure/Treatment] #3 Left Ellison -Time 15:55 -Correct Patient Yes -Correct Side, Site, Position Yes -Correct Procedure Yes -Procedure Performed Yes -Type of Procedure Debridement -Clinical Debridement Subcutaneous -Post Debridement Size (cm) - Length 3.6 -Post Debridement Size (cm) - Width 2.6 -Post Debridement Size (cm) - Depth 0.1 -Total Square Cm 9.36 -Wound/Ulcer Outcome Not Healed -Ulcer Cleansing Rinsed/ Irrigated with Saline -Foul Odor after Cleansing No -Bioengineered Tissue No -Bleeding Controlled with Pressure -Treatment Response Procedure Tolerated Well [See Physician Procedure note for Specifics] Pain Scale: 0-10 Numeric [Pain] -Is Patient Pain Free? Yes Musculoskeletal: No Tenderness to Palpation of Joints or Extremities, Muscle Wasting, - - Compartments left lower extremity remains soft Neurological: Sensory exam intact to light touch and pain Psych/Mental Status: Normal Affect, Appropriate Debridement Note Post-Debridement Measurements/Treatment WC - Nurse 2 - General Ulcer CM Notes Start: 12/31/17 15:58 Freq: Status: Active Protocol: Activity Type Activity Date Activity User E-Sign Co-Sign Detail Recorded Client Recorded Date Recorded By Document 12/31/17 16:21 [id number] 12/31/17 16:22 Document 01/07/18 15:55 [id number] 01/07/18 15:56 12/31/17 01/07/18 16:21 15:55 Wound Center Nurse 2 #3 Left Ellison -Time 16:21 15:55 -Correct Patient Yes Yes -Correct Side, Site, Position Yes Yes -Correct Procedure Yes Yes -Procedure Performed Yes Yes -Type of Procedure Debridement Debridement -Clinical Debridement Subcutaneous Subcutaneous -Post Debridement Size (cm) - Length 3.4 3.6 -Post Debridement Size (cm) - Width 2.4 2.6 -Post Debridement Size (cm) - Depth 0.2 0.1 -Total Square Cm 8.16 9.36 -Wound/Ulcer Outcome Not Healed Not Healed -Ulcer Cleansing Rinsed/ Rinsed/ Irrigated with Irrigated with Saline Saline -Foul Odor after Cleansing No No -Bioengineered Tissue No No -Topical Lidocaine (%) 5 -Bleeding Controlled with Pressure Pressure -Treatment Response Procedure Procedure Tolerated Well Tolerated Well Pain Scale: 0-10 Numeric Is Patient Pain Free? Yes Yes Wound debrided: leg Laterality: Left Type of Debridement: Excisional debridement Anesthesia Used: 4% Lidocaine Solution Depth: in the subcutaneous layer Percentage of wound debrided: 100 Instrument Used: #15 blade Tissue Removed: fibrous, devitalized subcutaneous, biofilm, slough Severity: Fat Layer Exposed Amount of bleeding with debridement: Mild Bleeding Controlled with: Pressure Patient tolerated procedure well Assessment/Plan Active Problems Venous insufficiency (chronic) (peripheral) (Chronic) Assessment: Chronic and recurrent ulcer to the left ellison - stable, no infection. Venous insufficiency left lower extremity. lyphedema. non compliance. delay ed healing Plan: I reviewed and discussed the case with the patient today. The ulcer site was debrided subcutaneously as noted in the clinical panel. She has completed a full course of epi fix. Alexandria was applied; to change every 1-2 days. An additional compression dressing, bilateral CircAid was applied. She demonstrates application knowledge. To continue lymphedema pumps as advised. . To continue nutritional supplementation to optimize healing. To avoid idle standing and sitting to help reduce fluid collection in the lower extremities. She was reassured no signs of infection noted today. To monitor. I recommend proceeding with vascular surgery intervention in this is scheduled in November with Dr. Machado at [facility]. It is noted that she has failed other conservative and advanced compression therapy is for over 6 months including elevation, Mikhail wrap, compression stockings, CircAid, and venous ablation. I am concerned her chronic venous insufficiency is now lymphedema and this is getting challenging to treat. Her CBC and CMP were reviewed. No leukocytosis is noted. Her albumin levels 3.6. To return to clinic in 1 week at the wound care center or call sooner if questions or concerns. I answered all of her questions today.
[2018-01-14 15:46] VITALS: BP 140/80; PULSE 60; RESP 20; TEMP 36.1
--- NOTE | 2018-01-14 16:30 | PN.PCM_ITS ---
(1) Chronic ulcer of left lower extremity with fat layer exposed Status: Chronic Current Visit: Yes Code(s): L97.922 - Non-pressure chronic ulcer of unspecified part of left lower leg with fat layer exposed (2) Lymphedema Status: Chronic Current Visit: Yes Code(s): I89.0 - Lymphedema, not elsewhere classified (3) Delayed wound healing Status: Chronic Current Visit: Yes Code(s): T14.8 - Other injury of unspecified body region (4) Localized edema Status: Chronic Current Visit: Yes Code(s): R60.0 - Localized edema (5) Malnutrition Status: Chronic Current Visit: Yes Code(s): E46 - Unspecified protein- calorie malnutrition (6) Venous insufficiency (chronic) (peripheral) Status: Chronic Current Visit: Yes Code(s): I87.2 - Venous insufficiency (chronic) (peripheral) Type of Wound Date of Service: 01/14/18 Chief Complaint: Chronic ulcer to the left lower extremity History of Wound: This 62 year old patient returns to the wound healing center for follow up of her chronic ulcer to her left ellison. She has continued bilateral lower extremity edema this is decreased the past week with her multilayer compression dressing. She did see vascular surgeon, Dr. Machado, and has venous intervention planned for February 03, 2018. I also recommend continued lymphedema pump use; she is doing well with this so far. To elevate limbs at rest and avoid idle sitting or standing. She continues to wear CircAid compression garment at work and denies problems. She denies fever, chill, nausea, vomiting, calf pain, or shortness of breath, or wound redness or odor. Progress of Wound: Improving - Physical Exam Vital Signs Temp Pulse Resp BP 96.9 F L 60 20 H 140/80 H 01/14/18 15:46 01/14/18 15:46 01/14/18 15:46 01/14/18 15:46 General: Alert, Oriented x3, Cooperative Extremities: No cyanosis, Capillary Refill Less than 3 Seconds, No Calf Tenderness - Negative Italo and Castillo sign left, Diminished Peripheral Pulses, Edema - Decreased left lower extremity compared to last week Skin: Ulcer/ Wound - No purulence, erythema, streaking, odor, or acute infection. There is continued peripheral epithelialization noted. The peripheral wound bed is hairless, atrophic, and with hyperpigmentation that is unchanged compared to previous visit. There is no deep tissue exposed. Wound Measurements and Assessment WC - Nurse 1 - General Ulcer Measurement Start: 12/31/17 15:58 Freq: Status: Active Protocol: Activity Type Activity Date Activity User E-Sign Co-Sign Detail Recorded Client Recorded Date Recorded By Document 01/14/18 15:46 [id number] 01/14/18 15:54 01/14/18 15:46 Wound Center Nurse 1 [Ulcer Assessment] #3 Left Ellison -Current Size (cm) - Length 3.7 -Current Size (cm) - Width 3.5 -Current Size (cm) - Depth 0.1 -Total Square Cm 12.95 -Photo Taken No -Exudate Amt Small (1-33%) -Exudate Type Serosanguineous -Wound Margin Distinct, Outline Attached -Granulation Amt Large (67-100%) -Granulation Quality Red -Necrosis Amt Small (1-33%) -Necrotic Tissue Type Adherent Slough -Structure Exposed N/A -Texture (Jenny-wound Skin Appearance) Scarring -Moisture (Jenny-wound Skin Appearance Dry/Scaly ) -Color (Jenny-wound Skin Appearance) Hemosiderin Staining Rubor -Temperature (Jenny-wound Skin No Abnormality Appearance) (Pt Warm) -Ulcer Cleansing Wound Cleanser -Foul Odor after Cleansing No -Anesthetic Used 4% Lidocaine Solution [Edema Assessment] -Left Calf (cm) 44 -Left Ankle (cm) 27.2 - Nurse 2 - General Ulcer CM Notes Start: 12/31/17 15:58 Freq: Status: Active Protocol: Activity Type Activity Date Activity User E-Sign Co-Sign Detail Recorded Client Recorded Date Recorded By Document 01/14/18 16:01 [id number] 01/14/18 16:01 01/14/18 16:01 Wound Center Nurse 2 [Procedure/Treatment] #3 Left Ellison -Time 16:01 -Correct Patient Yes -Correct Side, Site, Position Yes -Correct Procedure Yes -Procedure Performed Yes -Type of Procedure Debridement -Clinical Debridement Subcutaneous -Post Debridement Size (cm) - Length 3.8 -Post Debridement Size (cm) - Width 3.5 -Post Debridement Size (cm) - Depth 0.1 -Total Square Cm 13.30 -Wound/Ulcer Outcome Not Healed -Ulcer Cleansing Rinsed/ Irrigated with Saline -Foul Odor after Cleansing No -Bioengineered Tissue No -Bleeding Controlled with Pressure -Treatment Response Procedure Tolerated Well [See Physician Procedure note for Specifics] Pain Scale: 0-10 Numeric [Pain] -Is Patient Pain Free? Yes Musculoskeletal: No Tenderness to Palpation of Joints or Extremities, Muscle Wasting, - Neurological: Sensory exam intact to light touch and pain Psych/Mental Status: Normal Affect, Appropriate Debridement Note Post-Debridement Measurements/Treatment WC - Nurse 2 - General Ulcer CM Notes Start: 12/31/17 15:58 Freq: Status: Active Protocol: Activity Type Activity Date Activity User E-Sign Co-Sign Detail Recorded Client Recorded Date Recorded By Document 12/31/17 16:21 [id number] 12/31/17 16:22 Document 01/07/18 15:55 [id number] 01/07/18 15:56 Document 01/14/18 16:01 [id number] 01/14/18 16:01 12/31/17 01/07/18 01/14/18 16:21 15:55 16:01 Wound Center Nurse 2 #3 Left Ellison -Time 16:21 15:55 16:01 -Correct Patient Yes Yes Yes -Correct Side, Site, Position Yes Yes Yes -Correct Procedure Yes Yes Yes -Procedure Performed Yes Yes Yes -Type of Procedure Debridement Debridement Debridement -Clinical Debridement Subcutaneous Subcutaneous Subcutaneous -Post Debridement Size (cm) - Length 3.4 3.6 3.8 -Post Debridement Size (cm) - Width 2.4 2.6 3.5 -Post Debridement Size (cm) - Depth 0.2 0.1 0.1 -Total Square Cm 8.16 9.36 13.30 -Wound/Ulcer Outcome Not Healed Not Healed Not Healed -Ulcer Cleansing Rinsed/ Rinsed/ Rinsed/ Irrigated with Irrigated with Irrigated with Saline Saline Saline -Foul Odor after Cleansing No No No -Bioengineered Tissue No No No -Topical Lidocaine (%) 5 -Bleeding Controlled with Pressure Pressure Pressure -Treatment Response Procedure Procedure Procedure Tolerated Well Tolerated Well Tolerated Well Pain Scale: 0-10 Numeric Is Patient Pain Free? Yes Yes Yes Wound debrided: leg Laterality: Left Type of Debridement: Excisional debridement Anesthesia Used: 4% Lidocaine Solution Depth: in the subcutaneous layer Percentage of wound debrided: 100 Instrument Used: #15 blade Tissue Removed: fibrous, devitalized subcutaneous, biofilm, slough Severity: Fat Layer Exposed Amount of bleeding with debridement: Mild Bleeding Controlled with: Pressure Patient tolerated procedure well Assessment/Plan Active Problems Lymphedema (Chronic) Venous insufficiency (chronic) (peripheral) (Chronic) Delayed wound healing (Chronic) Localized edema (Chronic) Chronic ulcer of left lower extremity with fat layer exposed (Chronic) Malnutrition (Chronic) Assessment: Chronic and recurrent ulcer to the left ellison - stable, no infection. Venous insufficiency left lower extremity. lyphedema. non compliance. delayed healing Plan: I reviewed and discussed the case with the patient today. The ulcer site was debrided subcutaneously as noted in the clinical panel. She has completed a full course of epi fix. [place] was applied; to change every 1-2 days. An additional compression dressing, bilateral CircAid was applied. She demonstrates application knowledge. To continue lymphedema pumps as advised. . To continue nutritional supplementation to optimize healing. To avoid idle standing and sitting to help reduce fluid collection in the lower extremities. She was reassured no signs of infection noted today. To monitor. I recommend proceeding with vascular surgery intervention and this is scheduled for February 03, [address] Machado. It is noted that she has failed other conservative and advanced compression therapy is for over 6 months including elevation, Mikhail wrap, compression stockings, CircAid, and venous ablation. I am concerned her chronic venous insufficiency is now lymphedema and this is getting challenging to treat. Her CBC and CMP were reviewed. No leukocytosis is noted. Her albumin levels 3.6. To return to clinic in 1 week at the wound care center or call sooner if questions or concerns. I answered all of her questions today.
[2018-01-21 15:48] VITALS: BP 137/71; PULSE 64; RESP 18; TEMP 36.1
--- NOTE | 2018-01-21 16:55 | PCM.WC.PN ---
(1) Chronic ulcer of left lower extremity with fat layer exposed Status: Chronic Code(s): L97.922 - Non-pressure chronic ulcer of unspecified part of left lower leg with fat layer exposed (2) Lymphedema Status: Chronic Code(s): I89.0 - Lymphedema, not elsewhere classified (3) Delayed wound healing Status: Chronic Code(s): T14.8 - Other injury of unspecified body region (4) Localized edema Status: Chronic Code(s): R60.0 - Localized edema (5) Malnutrition Status: Chronic Code(s): E46 - Unspecified protein-calorie malnutrition (6) Venous insufficiency (chronic) (peripheral) Status: Chronic Code(s): I87.2 - Venous insufficiency (chronic) (peripheral) Type of Wound Date of Service: 01/21/18 Chief Complaint: Chronic ulcer to the left lower extremity History of Wound: This 62 year old patient returns to the wound healing center for follow up of her chronic ulcer to her left ellison. She has continued bilateral lower extremity edema this is decreased the past week with her multilayer compression dressing. She did see vascular surgeon, Dr. Machado, and has venous intervention planned for February 03, 2018. I also recommend continued lymphedema pump use; she is doing well with this so far. To elevate limbs at rest and avoid idle sitting or standing. She continues to wear CircAid compression garment at work and denies problems. She denies fever, chill, nausea, vomiting, calf pain, or shortness of breath, or wound redness or odor. Progress of Wound: Improving - Physical Exam Vital Signs Temp Pulse Resp BP 96.9 F L 64 18 137/71 H 01/21/18 15:48 01/21/18 15:48 01/21/18 15:48 01/21/18 15:48 General: Alert, Oriented x3, Cooperative Extremities: No cyanosis, Capillary Refill Less than 3 Seconds, No Calf Tenderness - Negative Italo and Castillo sign bilateral, Diminished Peripheral Pulses, Edema - Moderate bilateral lower extremities Skin: Ulcer/ Wound - No purulence, erythema, streaking, odor, or infection. Peripheral skin is hairless and atrophic. There is minor hyperpigmentation around the ulcer wound bed. Wound Measurements and Assessment WC - Nurse 1 - General Ulcer Measurement Start: 12/31/17 15:58 Freq: Status: Active Protocol: Activity Type Activity Date Activity User E-Sign Co-Sign Detail Recorded Client Recorded Date Recorded By Document 01/21/18 15:48 DL [id number] 01/21/18 15:54 DL 01/21/18 15:48 Wound Center Nurse 1 [Ulcer Assessment] #3 Left Ellison -Current Size (cm) - Length 2 -Current Size (cm) - Width 1.5 -Current Size (cm) - Depth 0.1 -Total Square Cm 3.0 -Photo Taken No -Exudate Amt Small (1-33%) -Exudate Type Serosanguineous -Wound Margin Distinct, Outline Attached -Granulation Amt Medium (34-66%) -Granulation Quality Red -Necrosis Amt Medium (34-66%) -Necrotic Tissue Type Adherent Slough -Structure Exposed N/A -Texture (Jenny-wound Skin Appearance) Scarring -Moisture (Jenny-wound Skin Appearance Maceration ) -Color (Jenny-wound Skin Appearance) Hemosiderin Staining Rubor -Temperature (Jenny-wound Skin No Abnormality Appearance) (Pt Warm) -Ulcer Cleansing Wound Cleanser -Foul Odor after Cleansing No -Anesthetic Used 4% Lidocaine Solution [Edema Assessment] -Left Calf (cm) 50.5 -Left Ankle (cm) 26.5 WC - Nurse 2 - General Ulcer CM Notes Start: 12/31/17 15:58 Freq: Status: Active Protocol: Activity Type Activity Date Activity User E-Sign Co-Sign Detail Recorded Client Recorded Date Recorded By Document 01/21/18 16:33 DL [id number] 01/21/18 16:34 DL 01/21/18 16:33 Wound Center Nurse 2 [Procedure/Treatment] #3 Left Ellison -Correct Patient Yes -Correct Side, Site, Position Yes -Correct Procedure Yes -Procedure Performed Yes -Type of Procedure Debridement -Clinical Debridement Subcutaneous -Post Debridement Size (cm) - Length 2.1 -Post Debridement Size (cm) - Width 1.6 -Post Debridement Size (cm) - Depth 0.1 -Total Square Cm 3.36 -Wound/Ulcer Outcome Not Healed -Ulcer Cleansing Wound Cleanser -Foul Odor after Cleansing No -Bioengineered Tissue No -Bleeding Controlled with NA -Treatment Response Procedure Tolerated Well [See Physician Procedure note for Specifics] Pain Scale: 0-10 Numeric [Pain] -Is Patient Pain Free? Yes Musculoskeletal: No Tenderness to Palpation of Joints or Extremities, Muscle Wasting, Tenderness - No ulcer palpation pain noted today, - Neurological: - - Lack of normal epicritic sensation around the ulcer site left leg Psych/Mental Status: Normal Affect, Appropriate Debridement Note Post-Debridement Measurements/Treatment WC - Nurse 2 - General Ulcer CM Notes Start: 12/31/17 15:58 Freq: Status: Active Protocol: Activity Type Activity Date Activity User E-Sign Co-Sign Detail Recorded Client Recorded Date Recorded By Document 12/31/17 16:21 TM [id number] 12/31/17 16:22 TM Document 01/07/18 15:55 JF [id number] 01/07/18 15:56 JF Document 01/14/18 16:01 JF [id number] 01/14/18 16:01 JF Document 01/21/18 16:33 DL [id number] 01/21/18 16:34 DL 12/31/17 01/07/18 01/14/18 16:21 15:55 16:01 Wound Center Nurse 2 #3 Left Ellison -Time 16:21 15:55 16:01 -Correct Patient Yes Yes Yes -Correct Side, Site, Position Yes Yes Yes -Correct Procedure Yes Yes Yes -Procedure Performed Yes Yes Yes -Type of Procedure Debridement Debridement Debridement -Clinical Debridement Subcutaneous Subcutaneous Subcutaneous -Post Debridement Size (cm) - Length 3.4 3.6 3.8 -Post Debridement Size (cm) - Width 2.4 2.6 3.5 -Post Debridement Size (cm) - Depth 0.2 0.1 0.1 -Total Square Cm 8.16 9.36 13.30 -Wound/Ulcer Outcome Not Healed Not Healed Not Healed -Ulcer Cleansing Rinsed/ Rinsed/ Rinsed/ Irrigated with Irrigated with Irrigated with Saline Saline Saline -Foul Odor after Cleansing No No No -Bioengineered Tissue No No No -Topical Lidocaine (%) 5 -Bleeding Controlled with Pressure Pressure Pressure -Treatment Response Procedure Procedure Procedure Tolerated Well Tolerated Well Tolerated Well Pain Scale: 0-10 Numeric Is Patient Pain Free? Yes Yes Yes 01/21/18 16:33 Wound Center Nurse 2 #3 Left Ellison -Time -Correct Patient Yes -Correct Side, Site, Position Yes -Correct Procedure Yes -Procedure Performed Yes -Type of Procedure Debridement -Clinical Debridement Subcutaneous -Post Debridement Size (cm) - Length 2.1 -Post Debridement Size (cm) - Width 1.6 -Post Debridement Size (cm) - Depth 0.1 -Total Square Cm 3.36 -Wound/Ulcer Outcome Not Healed -Ulcer Cleansing Wound Cleanser -Foul Odor after Cleansing No -Bioengineered Tissue No -Topical Lidocaine (%) -Bleeding Controlled with NA -Treatment Response Procedure Tolerated Well Pain Scale: 0-10 Numeric Is Patient Pain Free? Yes Wound debrided: leg Laterality: Left Type of Debridement: Excisional debridement Anesthesia Used: 4% Lidocaine Solution Depth: in the subcutaneous layer Percentage of wound debrided: 100 Instrument Used: #15 blade Tissue Removed: fibrous, devitalized subcutaneous, biofilm, slough Severity: Fat Layer Exposed Amount of bleeding with debridement: Mild Bleeding Controlled with: Pressure Patient tolerated procedure well Assessment/Plan Assessment: Chronic and recurrent ulcer to the left ellison - stable, no infection. Venous insufficiency left lower extremity. lyphedema. non compliance. delayed healing Plan: I reviewed and discussed the case with the patient today. The ulcer site was debrided subcutaneously as noted in the clinical panel. She has completed a full course of epi fix. [place] was applied; to change every 1-2 days. An additional compression dressing, bilateral CircAid was applied. She demonstrates application knowledge. To continue lymphedema pumps as advised. . To continue nutritional supplementation to optimize healing. To avoid idle standing and sitting to help reduce fluid collection in the lower extremities. She was reassured no signs of infection noted today. To monitor. I recommend proceeding with vascular surgery intervention and this is scheduled for February 03, [address] Machado. It is noted that she has failed other conservative and advanced compression therapy is for over 6 months including elevation, Mikhail wrap, compression stockings, CircAid, and venous ablation. I am concerned her chronic venous insufficiency is now lymphedema and this is getting challenging to treat. Her CBC and CMP were reviewed. No leukocytosis is noted. Her albumin levels 3.6. To return to clinic in 1 week at the wound care center or call sooner if questions or concerns. I answered all of her questions today.
[2018-01-28 15:46] VITALS: BP 129/66; PULSE 57; RESP 18; TEMP 36.2
--- NOTE | 2018-01-28 16:17 | PCM.WC.PN ---
(1) Chronic ulcer of left lower extremity with fat layer exposed Status: Chronic Code(s): L97.922 - Non-pressure chronic ulcer of unspecified part of left lower leg with fat layer exposed (2) Lymphedema Status: Chronic Code(s): I89.0 - Lymphedema, not elsewhere classified (3) Delayed wound healing Status: Chronic Code(s): T14.8 - Other injury of unspecified body region (4) Localized edema Status: Chronic Code(s): R60.0 - Localized edema (5) Malnutrition Status: Chronic Code(s): E46 - Unspecified protein-calorie malnutrition (6) Venous insufficiency (chronic) (peripheral) Status: Chronic Code(s): I87.2 - Venous insufficiency (chronic) (peripheral) Type of Wound Date of Service: 01/28/18 Chief Complaint: Chronic ulcer to the left lower extremity History of Wound: This 62 year old patient returns to the wound healing center for follow up of her chronic ulcer to her left ellison. She has continued bilateral lower extremity edema this is decreased the past week with her multilayer compression dressing. She did see vascular surgeon, Dr. Machado, and has venous intervention planned for February 03, 2018. I also recommend continued lymphedema pump use; she is doing well with this so far. To elevate limbs at rest and avoid idle sitting or standing. She continues to wear CircAid compression garment at work and relates a small new opening is present. She denies fever, chill, nausea, vomiting, calf pain, or shortness of breath, or wound redness or odor. Progress of Wound: new ulcer - Physical Exam Vital Signs Temp Pulse Resp BP 97.1 F L 57 L 18 129/66 H 01/28/18 15:46 01/28/18 15:46 01/28/18 15:46 01/28/18 15:46 General: Alert, Oriented x3, Cooperative Extremities: No cyanosis, Capillary Refill Less than 3 Seconds, No Calf Tenderness - Negative Italo and Castillo sign bilateral, Diminished Peripheral Pulses, Edema - Moderate bilateral lower extremities Skin: Ulcer/ Wound - No purulence, erythema, streaking, odor, or infection. The peripheral skin is hairless and atrophic. There is a new skin discontinuity to the lateral cluster site with granular base. There is no deep tissue exposed. Wound Measurements and Assessment WC - Nurse 1 - General Ulcer Measurement Start: 12/31/17 15:58 Freq: Status: Active Protocol: Activity Type Activity Date Activity User E-Sign Co-Sign Detail Recorded Client Recorded Date Recorded By Document 01/28/18 15:46 DL [id number] 01/28/18 15:49 DL 01/28/18 15:46 Wound Center Nurse 1 [Ulcer Assessment] #3 Left Ellison -Current Size (cm) - Length 3.5 -Current Size (cm) - Width 5 -Current Size (cm) - Depth 0.2 -Total Square Cm 17.5 -Photo Taken No -Exudate Amt Medium (34-66%) -Exudate Type Serosanguineous -Wound Margin Distinct, Outline Attached -Granulation Amt Medium (34-66%) -Granulation Quality Red -Necrosis Amt Medium (34-66%) -Necrotic Tissue Type Adherent Slough -Structure Exposed N/A -Texture (Jenny-wound Skin Appearance) Localized Edema Scarring -Moisture (Jenny-wound Skin Appearance Dry/Scaly ) -Color (Jenny-wound Skin Appearance) Hemosiderin Staining Rubor -Tenderness on Palpation (Jenny-wound No Skin Appearance) -Ulcer Cleansing Rinsed/ Irrigated with Saline -Foul Odor after Cleansing No -Anesthetic Used 4% Lidocaine Solution [Edema Assessment] -Left Calf (cm) 47.5 -Left Ankle (cm) 26 WC - Nurse 2 - General Ulcer CM Notes Start: 12/31/17 15:58 Freq: Status: Active Protocol: Activity Type Activity Date Activity User E-Sign Co-Sign Detail Recorded Client Recorded Date Recorded By Document 01/28/18 16:07 [id number] 01/28/18 16:09 01/28/18 16:07 Wound Center Nurse 2 [Procedure/Treatment] #3 Left Ellison -Time 16:08 -Correct Patient Yes -Correct Side, Site, Position Yes -Correct Procedure Yes -Procedure Performed Yes -Type of Procedure Debridement -Clinical Debridement Subcutaneous -Post Debridement Size (cm) - Length 3.1 -Post Debridement Size (cm) - Width 5.0 -Post Debridement Size (cm) - Depth 0.1 -Total Square Cm 15.50 -Wound/Ulcer Outcome Not Healed -Ulcer Cleansing Rinsed/ Irrigated with Saline -Foul Odor after Cleansing No -Bioengineered Tissue No -Topical Lidocaine (%) 5 -Bleeding Controlled with Pressure -Treatment Response Procedure Tolerated Well [See Physician Procedure note for Specifics] Pain Scale: 0-10 Numeric [Pain] -Is Patient Pain Free? Yes Musculoskeletal: No Tenderness to Palpation of Joints or Extremities, Muscle Wasting, - - Compartments soft to palpate left lower extremity Neurological: - - Lack of normal epicritic sensation light touch to the ulcer site Psych/Mental Status: Normal Affect, Appropriate Debridement Note Post-Debridement Measurements/Treatment WC - Nurse 2 - General Ulcer CM Notes Start: 12/31/17 15:58 Freq: Status: Active Protocol: Activity Type Activity Date Activity User E-Sign Co-Sign Detail Recorded Client Recorded Date Recorded By Document 12/31/17 16:21 TM [id number] 12/31/17 16:22 TM Document 01/07/18 15:55 JF [id number] 01/07/18 15:56 JF Document 01/14/18 16:01 JF [id number] 01/14/18 16:01 JF Document 01/21/18 16:33 DL [id number] 01/21/18 16:34 DL Document 01/28/18 16:07 [id number] 01/28/18 16:09 TM 12/31/17 01/07/18 01/14/18 16:21 15:55 16:01 Wound Center Nurse 2 #3 Left Ellison -Time 16:21 15:55 16:01 -Correct Patient Yes Yes Yes -Correct Side, Site, Position Yes Yes Yes -Correct Procedure Yes Yes Yes -Procedure Performed Yes Yes Yes -Type of Procedure Debridement Debridement Debridement -Clinical Debridement Subcutaneous Subcutaneous Subcutaneous -Post Debridement Size (cm) - Length 3.4 3.6 3.8 -Post Debridement Size (cm) - Width 2.4 2.6 3.5 -Post Debridement Size (cm) - Depth 0.2 0.1 0.1 -Total Square Cm 8.16 9.36 13.30 -Wound/Ulcer Outcome Not Healed Not Healed Not Healed -Ulcer Cleansing Rinsed/ Rinsed/ Rinsed/ Irrigated with Irrigated with Irrigated with Saline Saline Saline -Foul Odor after Cleansing No No No -Bioengineered Tissue No No No -Topical Lidocaine (%) 5 -Bleeding Controlled with Pressure Pressure Pressure -Treatment Response Procedure Procedure Procedure Tolerated Well Tolerated Well Tolerated Well Pain Scale: 0-10 Numeric Is Patient Pain Free? Yes Yes Yes 01/21/18 01/28/18 16:33 16:07 Wound Center Nurse 2 #3 Left Ellison -Time 16:08 -Correct Patient Yes Yes -Correct Side, Site, Position Yes Yes -Correct Procedure Yes Yes -Procedure Performed Yes Yes -Type of Procedure Debridement Debridement -Clinical Debridement Subcutaneous Subcutaneous -Post Debridement Size (cm) - Length 2.1 3.1 -Post Debridement Size (cm) - Width 1.6 5.0 -Post Debridement Size (cm) - Depth 0.1 0.1 -Total Square Cm 3.36 15.50 -Wound/Ulcer Outcome Not Healed Not Healed -Ulcer Cleansing Wound Cleanser Rinsed/ Irrigated with Saline -Foul Odor after Cleansing No No -Bioengineered Tissue No No -Topical Lidocaine (%) 5 -Bleeding Controlled with NA Pressure -Treatment Response Procedure Procedure Tolerated Well Tolerated Well Pain Scale: 0-10 Numeric Is Patient Pain Free? Yes Yes Wound debrided: leg cluster Laterality: Left Type of Debridement: Excisional debridement Anesthesia Used: 4% Lidocaine Solution Depth: in the subcutaneous layer Percentage of wound debrided: - - 35% Instrument Used: #15 blade Tissue Removed: fibrous, devitalized subcutaneous, biofilm, slough Severity: Fat Layer Exposed Amount of bleeding with debridement: Mild Bleeding Controlled with: Pressure Patient tolerated procedure well Assessment/Plan Assessment: Chronic and recurrent ulcer to the left ellison - stable, no infection. Venous insufficiency left lower extremity. lyphedema. non compliance. delayed healing Plan: I reviewed and discussed the case with the patient today. The ulcer site was debrided subcutaneously as noted in the clinical panel. She has completed a full course of epi fix. [place] was applied; to change every 1-2 days. An additional compression it is noted she has a new small ulcer to the lateral aspect of the leg cluster dressing, bilateral CircAid was applied. She demonstrates application knowledge. To continue lymphedema pumps as advised. . To continue nutritional supplementation to optimize healing. To avoid idle standing and sitting to help reduce fluid collection in the lower extremities. She was reassured no signs of infection noted today. To monitor. I recommend proceeding with vascular surgery intervention and this is scheduled for February 03, [address] Machado. It is noted that she has failed other conservative and advanced compression therapy is for over 6 months including elevation, Mikhail wrap, compression stockings, CircAid, and venous ablation. I am concerned her chronic venous insufficiency is now lymphedema and this is getting challenging to treat. Her CBC and CMP were reviewed. No leukocytosis is noted. Her albumin levels 3.6. It is noted she has a new ulcer to the lateral cluster site and this is likely secondary to her chronic edema and possibly from her compression dressing strap. To return to clinic in 2 weeks at the wound care center or call sooner if questions or concerns. It is noted next Friday she will be undergoing vascular surgery intervention. I answered all of her questions today.
== END 2018-01-28 23:59 ==
LOC: WC 16:00
PROVIDERS: Family Provider Internal Medicine; PCP Internal Medicine; Visit Provider Podiatrist
DX: I87.2 Venous insufficiency (chronic) (peripheral) (principal); L97.822 Non-pressure chronic ulcer of other part of left lower leg with fat layer exposed; I89.0 Lymphedema, not elsewhere classified; R60.0 Localized edema; Z91.19 Patient's noncompliance with other medical treatment and regimen
CPT/HCPCS: 11042

== ENCOUNTER 2018-02-25 16:00 | Outpatient (RCR) | payer MEDICAID, SELFPAY ==
[2018-01-29 00:43] VITALS: BP 129/66; PULSE 57; RESP 18; TEMP 36.2
[2018-02-11 16:01] VITALS: BP 154/91; PULSE 63; RESP 18; TEMP 36.4
--- NOTE | 2018-02-11 17:22 | PCM.WC.PN ---
(1) Chronic ulcer of left lower extremity with fat layer exposed Status: Chronic Current Visit: Yes Code(s): L97.922 - Non-pressure chronic ulcer of unspecified part of left lower leg with fat layer exposed (2) Lymphedema Status: Chronic Current Visit: Yes Code(s): I89.0 - Lymphedema, not elsewhere classified (3) Venous insufficiency (chronic) (peripheral) Status: Chronic Current Visit: Yes Code(s): I87.2 - Venous insufficiency (chronic) (peripheral) (4) Delayed wound healing Status: Chronic Current Visit: Yes Code(s): T14.8 - Other injury of unspecified body region (5) Localized edema Status: Chronic Current Visit: Yes Code(s): R60.0 - Localized edema Type of Wound Date of Service: 02/11/18 Chief Complaint: Chronic ulcer to the left lower extremity History of Wound: This 62 year old patient returns to the wound healing center for follow up of her chronic ulcer to her left ellison. She has continued bilateral lower extremity edema this is decreased the past week with her multilayer compression dressing. She did have her venous procedure completed with vascular surgeon, Dr. Machado and relates her leg feels like it has less tension applied to it. I also recommend continued lymphedema pump use; she is doing well with this so far. To elevate limbs at rest and avoid idle sitting or standing. She continues to wear CircAid compression garment at work and denies problems. She denies fever, chill, nausea, vomiting, calf pain, or shortness of breath, or wound redness or odor. Progress of Wound: Improving - Physical Exam Vital Signs Temp Pulse Resp BP 97.5 F L 63 18 154/91 H 02/11/18 16:01 02/11/18 16:01 02/11/18 16:01 02/11/18 16:01 General: Alert, Oriented x3, Cooperative Extremities: No cyanosis, Capillary Refill Less than 3 Seconds, No Calf Tenderness - Negative Italo and Castillo sign bilateral, Edema - biLateral lower extremity, Peripheral Pulses Normal, Tenderness - No ulcer manipulation discomfort left leg Skin: Ulcer/ Wound - No purulence, erythema, streaking, odor, or acute signs of infection. There is peripheral epithelialization noted. There is no eschar Wound Measurements and Assessment WC - Nurse 1 - General Ulcer Measurement Start: 02/11/18 16:01 Freq: Status: Active Protocol: Activity Type Activity Date Activity User E-Sign Co-Sign Detail Recorded Client Recorded Date Recorded By Document 02/11/18 16:01 RB [id number] 02/11/18 16:03 RB 02/11/18 16:01 Wound Center Nurse 1 [Ulcer Assessment] #3 Left Ellison -Combined with other wound No -Current Size (cm) - Length 1.7 -Current Size (cm) - Width 1.2 -Current Size (cm) - Depth 0.1 -Total Square Cm 2.04 -Photo Taken No -Tunneling No -Undermining/Tunneling No -Circular Undermining No -Exudate Amt Small (1-33%) -Exudate Type Serosanguineous -Wound Margin Distinct, Outline Attached -Granulation Amt Large (67-100%) -Granulation Quality [place] Red -Slough/Fibrin Yes -Necrosis Amt Small (1-33%) -Necrotic Tissue Type Adherent Slough -Structure Exposed N/A -Texture (Jenny-wound Skin Appearance) Assessed -Moisture (Jenny-wound Skin Appearance Dry/Scaly ) -Color (Jenny-wound Skin Appearance) Assessed Hemosiderin Staining -Temperature (Jenny-wound Skin No Abnormality Appearance) (Pt Warm) -Tenderness on Palpation (Jenny-wound No Skin Appearance) -Ulcer Cleansing Rinsed/ Irrigated with Saline -Foul Odor after Cleansing No -Anesthetic Used 4% Lidocaine Solution [Edema Assessment] -Lower Limb Edema Present Yes -Left Calf (cm) 51.5 -Left Ankle (cm) 28.7 WC - Nurse 2 - General Ulcer CM Notes Start: 02/11/18 16:01 Freq: Status: Active Protocol: Activity Type Activity Date Activity User E-Sign Co-Sign Detail Recorded Client Recorded Date Recorded By Document 02/11/18 16:27 [id number] 02/11/18 16:30 02/11/18 16:27 Wound Center Nurse 2 [Procedure/Treatment] #3 Left Ellison -Time 16:30 -Correct Patient Yes -Correct Side, Site, Position Yes -Correct Procedure Yes -Procedure Performed Yes -Type of Procedure Debridement -Clinical Debridement Subcutaneous -Post Debridement Size (cm) - Length 3 -Post Debridement Size (cm) - Width 2 -Post Debridement Size (cm) - Depth 0.1 -Total Square Cm 6 -Wound/Ulcer Outcome Not Healed -Ulcer Cleansing Rinsed/ Irrigated with Saline -Foul Odor after Cleansing No -Bioengineered Tissue No -Bleeding Controlled with Pressure -Treatment Response Procedure Tolerated Well [See Physician Procedure note for Specifics] Pain Scale: 0-10 Numeric [Pain] -Is Patient Pain Free? Yes Musculoskeletal: No Tenderness to Palpation of Joints or Extremities, Muscle Wasting Neurological: Sensory exam intact to light touch and pain Psych/Mental Status: Normal Affect, Appropriate Debridement Note Post-Debridement Measurements/Treatment WC - Nurse 2 - General Ulcer CM Notes Start: 02/11/18 16:01 Freq: Status: Active Protocol: Activity Type Activity Date Activity User E-Sign Co-Sign Detail Recorded Client Recorded Date Recorded By Document 02/11/18 16:27 [id number] 02/11/18 16:30 JEFF 02/11/18 16:27 Wound Center Nurse 2 #3 Left Ellison -Time 16:30 -Correct Patient Yes -Correct Side, Site, Position Yes -Correct Procedure Yes -Procedure Performed Yes -Type of Procedure Debridement -Clinical Debridement Subcutaneous -Post Debridement Size (cm) - Length 3 -Post Debridement Size (cm) - Width 2 -Post Debridement Size (cm) - Depth 0.1 -Total Square Cm 6 -Wound/Ulcer Outcome Not Healed -Ulcer Cleansing Rinsed/ Irrigated with Saline -Foul Odor after Cleansing No -Bioengineered Tissue No -Bleeding Controlled with Pressure -Treatment Response Procedure Tolerated Well Pain Scale: 0-10 Numeric Is Patient Pain Free? Yes Wound debrided: leg Laterality: Left Type of Debridement: Excisional debridement Anesthesia Used: 4% Lidocaine Solution Depth: in the subcutaneous layer Percentage of wound debrided: 100 Instrument Used: #15 blade Tissue Removed: fibrous, devitalized subcutaneous, biofilm, slough Severity: Fat Layer Exposed Amount of bleeding with debridement: Mild Bleeding Controlled with: Pressure Patient tolerated procedure well Assessment/Plan Active Problems Lymphedema (Chronic) Venous insufficiency (chronic) (peripheral) (Chronic) Delayed wound healing (Chronic) Localized edema (Chronic) Chronic ulcer of left lower extremity with fat layer exposed (Chronic) Assessment: Chronic and recurrent ulcer to the left ellison - stable, no infection. Venous insufficiency left lower extremity. lyphedema. non compliance. delayed healing Plan: I reviewed and discussed the case with the patient today. The ulcer site was debrided subcutaneously as noted in the clinical panel. She has completed a full course of epi fix. [place] was applied; to change every 1-2 days. An additional compression dressing, bilateral CircAid was applied. She demonstrates application knowledge. To continue lymphedema pumps as advised. . To continue nutritional supplementation to optimize healing. To avoid idle standing and sitting to help reduce fluid collection in the lower extremities. She was reassured no signs of infection noted today. To monitor. . It is noted that she did have her additional venous surgery completed with Dr. Machado; to follow-up with him as advised. To return to clinic in 1 week at the wound care center or call sooner if questions or concerns. I answered all of her questions today.
[2018-02-18 16:01] VITALS: BP 133/73; PULSE 60; RESP 18; TEMP 37
--- NOTE | 2018-02-18 17:45 | PN.PCM_ITS ---
(1) Chronic ulcer of left lower extremity with fat layer exposed Status: Chronic Current Visit: Yes Code(s): L97.922 - Non-pressure chronic ulcer of unspecified part of left lower leg with fat layer exposed (2) Lymphedema Status: Chronic Current Visit: Yes Code(s): I89.0 - Lymphedema, not elsewhere classified (3) Venous insufficiency (chronic) (peripheral) Status: Chronic Current Visit: Yes Code(s): I87.2 - Venous insufficiency (chronic) (peripheral) (4) Delayed wound healing Status: Chronic Current Visit: Yes Code(s): T14.8 - Other injury of unspecified body region (5) Localized edema Status: Chronic Current Visit: Yes Code(s): R60.0 - Localized edema Type of Wound Date of Service: 02/18/18 Chief Complaint: Chronic ulcer to the left lower extremity History of Wound: This 62 year old patient returns to the wound healing center for follow up of her chronic ulcer to her left ellison. She has continued bilateral lower extremity edema this is decreased the past week with her multilayer compression dressing. She did have her venous procedure completed with vascular surgeon, Dr. Machado and relates her leg feels like it has less tension applied to it. I also recommend continued lymphedema pump use; she is doing well with this so far. To elevate limbs at rest and avoid idle sitting or standing. She continues to wear CircAid compression garment at work and denies problems. She denies fever, chill, nausea, vomiting, calf pain, or shortness of breath, or wound redness or odor. Progress of Wound: Improving - Physical Exam Vital Signs Temp Pulse Resp BP 98.6 F 60 18 133/73 H 02/18/18 16:01 02/18/18 16:01 02/18/18 16:01 02/18/18 16:01 General: Alert, Oriented x3, Cooperative Extremities: No cyanosis, Capillary Refill Less than 3 Seconds, No Calf Tenderness - negative tonya and palencia left, Edema - moderate bilateral legs, Peripheral Pulses Normal - dp palpable, left Wound Measurements and Assessment WC - Nurse 1 - General Ulcer Measurement Start: 02/11/18 16:01 Freq: Status: Active Protocol: Activity Type Activity Date Activity User E-Sign Co-Sign Detail Recorded Client Recorded Date Recorded By Document 02/18/18 16:01 [email or web address] [id number] 02/18/18 16:07 DL 02/18/18 16:01 Wound Center Nurse 1 [Ulcer Assessment] #3 Left Ellison -Current Size (cm) - Length 3 -Current Size (cm) - Width 2 -Current Size (cm) - Depth 0.1 -Total Square Cm 6 -Photo Taken No -Exudate Amt Small (1-33%) -Exudate Type Serosanguineous -Wound Margin Distinct, Outline Attached -Granulation Amt Medium (34-66%) -Granulation Quality Red -Necrosis Amt Medium (34-66%) -Necrotic Tissue Type Adherent Slough -Structure Exposed N/A -Texture (Jenny-wound Skin Appearance) Scarring -Moisture (Jenny-wound Skin Appearance Dry/Scaly ) -Color (Jenny-wound Skin Appearance) Hemosiderin Staining Rubor -Temperature (Jenny-wound Skin No Abnormality Appearance) (Pt Warm) -Tenderness on Palpation (Jenny-wound No Skin Appearance) -Ulcer Cleansing Rinsed/ Irrigated with Saline -Foul Odor after Cleansing No -Anesthetic Used 4% Lidocaine Solution [Edema Assessment] -Left Calf (cm) 48.5 -Left Ankle (cm) 27.2 WC - Nurse 2 - General Ulcer CM Notes Start: 02/11/18 16:01 Freq: Status: Active Protocol: Activity Type Activity Date Activity User E-Sign Co-Sign Detail Recorded Client Recorded Date Recorded By Document 02/18/18 16:28 [id number] 02/18/18 16:35 02/18/18 16:28 Wound Center Nurse 2 [Procedure/Treatment] #3 Left Ellison -Time 16:34 -Correct Patient Yes -Correct Side, Site, Position Yes -Correct Procedure Yes -Procedure Performed Yes -Type of Procedure Debridement -Clinical Debridement Subcutaneous -Post Debridement Size (cm) - Length 3.1 -Post Debridement Size (cm) - Width 2.1 -Post Debridement Size (cm) - Depth 0.1 -Total Square Cm 6.51 -Wound/Ulcer Outcome Not Healed -Ulcer Cleansing Rinsed/ Irrigated with Saline -Foul Odor after Cleansing No -Bioengineered Tissue No -Topical Lidocaine (%) 4 -Bleeding Controlled with Pressure -Treatment Response Procedure Tolerated Well [See Physician Procedure note for Specifics] Pain Scale: 0-10 Numeric [Pain] -Is Patient Pain Free? Yes Musculoskeletal: No Tenderness to Palpation of Joints or Extremities, Muscle Wasting Neurological: - - lack of normal epicritic sensation via light touch left jenny ulcer site Psych/Mental Status: Normal Affect, Appropriate Debridement Note Post-Debridement Measurements/Treatment WC - Nurse 2 - General Ulcer CM Notes Start: 02/11/18 16:01 Freq: Status: Active Protocol: Activity Type Activity Date Activity User E-Sign Co-Sign Detail Recorded Client Recorded Date Recorded By Document 02/11/18 16:27 [id number] 02/11/18 16:30 Document 02/18/18 16:28 [id number] 02/18/18 16:35 02/11/18 02/18/18 16:27 16:28 Wound Center Nurse 2 #3 Left Ellison -Time 16:30 16:34 -Correct Patient Yes Yes -Correct Side, Site, Position Yes Yes -Correct Procedure Yes Yes -Procedure Performed Yes Yes -Type of Procedure Debridement Debridement -Clinical Debridement Subcutaneous Subcutaneous -Post Debridement Size (cm) - Length 3 3.1 -Post Debridement Size (cm) - Width 2 2.1 -Post Debridement Size (cm) - Depth 0.1 0.1 -Total Square Cm 6 6.51 -Wound/Ulcer Outcome Not Healed Not Healed -Ulcer Cleansing Rinsed/ Rinsed/ Irrigated with Irrigated with Saline Saline -Foul Odor after Cleansing No No -Bioengineered Tissue No No -Topical Lidocaine (%) 4 -Bleeding Controlled with Pressure Pressure -Treatment Response Procedure Procedure Tolerated Well Tolerated Well Pain Scale: 0-10 Numeric Is Patient Pain Free? Yes Yes Wound debrided: leg Laterality: Left Type of Debridement: Excisional debridement Anesthesia Used: 4% Lidocaine Solution Depth: in the subcutaneous layer Percentage of wound debrided: 100 Instrument Used: #15 blade Tissue Removed: fibrous, devitalized subcutaneous, biofilm, slough Severity: Fat Layer Exposed Amount of bleeding with debridement: Mild Bleeding Controlled with: Pressure Patient tolerated procedure well Assessment/Plan Active Problems Lymphedema (Chronic) Venous insufficiency (chronic) (peripheral) (Chronic) Delayed wound healing (Chronic) Localized edema (Chronic) Chronic ulcer of left lower extremity with fat layer exposed (Chronic) Assessment: Chronic and recurrent ulcer to the left ellison - stable, no infection. Venous insufficiency left lower extremity. lyphedema. non compliance. delayed healing Plan: I reviewed and discussed the case with the patient today. The ulcer site was debrided subcutaneously as noted in the clinical panel. She has completed a full course of epi fix. [place] was applied; to change every 1-2 days. An additional compression dressing, bilateral CircAid was applied. She demonstrates application knowledge. To continue lymphedema pumps as advised. . To continue nutritional supplementation to optimize healing. To avoid idle standi ng and sitting to help reduce fluid collection in the lower extremities. She was reassured no signs of infection noted today. To monitor. . It is noted that she did have her additional venous surgery completed with Dr. Machado; to follow-up with him as advised. To return to clinic in 1 week at the wound care center or call sooner if questions or concerns. I answered all of her questions today.
[2018-02-25 15:46] VITALS: BP 155/80; PULSE 64; RESP 20; TEMP 36.4
--- NOTE | 2018-02-25 17:01 | PCM.WC.PN ---
(1) Chronic ulcer of left lower extremity with fat layer exposed Status: Chronic Current Visit: Yes Code(s): L97.922 - Non-pressure chronic ulcer of unspecified part of left lower leg with fat layer exposed (2) Lymphedema Status: Chronic Current Visit: Yes Code(s): I89.0 - Lymphedema, not elsewhere classified (3) Venous insufficiency (chronic) (peripheral) Status: Chronic Current Visit: Yes Code(s): I87.2 - Venous insufficiency (chronic) (peripheral) (4) Delayed wound healing Status: Chronic Current Visit: Yes Code(s): T14.8 - Other injury of unspecified body region (5) Localized edema Status: Chronic Current Visit: Yes Code(s): R60.0 - Localized edema Type of Wound Date of Service: 02/25/18 Chief Complaint: Chronic ulcer to the left lower extremity History of Wound: This 62 year old patient returns to the wound healing center for follow up of her chronic ulcer to her left ellison. She has continued bilateral lower extremity edema this is decreased the past week with her multilayer compression dressing. She did have her venous procedure completed with vascular surgeon, Dr. Machado. I also recommend continued lymphedema pump use; she is doing well with this so far. To elevate limbs at rest and avoid idle sitting or standing. She continues to wear CircAid compression garment at work and denies problems. She denies fever, chill, nausea, vomiting, calf pain, or shortness of breath, or wound redness or odor. Progress of Wound: Improving - Physical Exam Vital Signs Temp Pulse Resp BP 97.5 F L 64 20 H 155/80 H 02/25/18 15:46 02/25/18 15:46 02/25/18 15:46 02/25/18 15:46 General: Alert, Oriented x3, Cooperative Extremities: No cyanosis, Capillary Refill Less than 3 Seconds, No Calf Tenderness - Negative Italo and Castillo sign left, Diminished Peripheral Pulses, Edema - Left lower extremity Skin: Ulcer/ Wound - No purulence, erythema, streaking, odor, or acute signs of infection. There is no periwound hyperpigmentation or fluctuance on palpation Wound Measurements and Assessment WC - Nurse 1 - General Ulcer Measurement Start: 02/11/18 16:01 Freq: Status: Active Protocol: Activity Type Activity Date Activity User E-Sign Co-Sign Detail Recorded Client Recorded Date Recorded By Document 02/25/18 15:46 DL [id number] 02/25/18 15:52 DL 02/25/18 15:46 Wound Center Nurse 1 [Ulcer Assessment] #3 Left Ellison -Current Size (cm) - Length 3.4 -Current Size (cm) - Width 2 -Current Size (cm) - Depth 0.1 -Total Square Cm 6.8 -Photo Taken No -Exudate Amt Small (1-33%) -Exudate Type Serosanguineous -Wound Margin Distinct, Outline Attached -Granulation Amt Large (67-100%) -Granulation Quality Red -Necrosis Amt Small (1-33%) -Necrotic Tissue Type Adherent Slough -Structure Exposed N/A -Texture (Jenny-wound Skin Appearance) Localized Edema Scarring -Moisture (Jenny-wound Skin Appearance Dry/Scaly ) -Color (Jenny-wound Skin Appearance) Rubor -Temperature (Jenny-wound Skin No Abnormality Appearance) (Pt Warm) -Ulcer Cleansing Wound Cleanser -Foul Odor after Cleansing No -Anesthetic Used 4% Lidocaine Solution [Edema Assessment] -Left Calf (cm) 50.5 -Left Ankle (cm) 28.3 WC - Nurse 2 - General Ulcer CM Notes Start: 02/11/18 16:01 Freq: Status: Active Protocol: Activity Type Activity Date Activity User E-Sign Co-Sign Detail Recorded Client Recorded Date Recorded By Document 02/25/18 16:13 DV [id number] 02/25/18 16:17 DV 02/25/18 16:13 Wound Center Nurse 2 [Procedure/Treatment] #3 Left Ellison -Time 16:13 -Correct Patient Yes -Correct Side, Site, Position Yes -Correct Procedure Yes -Procedure Performed Yes -Type of Procedure Debridement -Clinical Debridement Subcutaneous -Post Debridement Size (cm) - Length 3.5 -Post Debridement Size (cm) - Width 2.2 -Post Debridement Size (cm) - Depth 0.1 -Total Square Cm 7.70 -Wound/Ulcer Outcome Not Healed -Ulcer Cleansing Rinsed/ Irrigated with Saline -Foul Odor after Cleansing No -Bioengineered Tissue No -Bleeding Controlled with Pressure -Treatment Response Procedure Tolerated Well [See Physician Procedure note for Specifics] Pain Scale: 0-10 Numeric [Pain] -Is Patient Pain Free? Yes Musculoskeletal: No Tenderness to Palpation of Joints or Extremities, Muscle Wasting Neurological: - - Lack of normal epicritic sensation light touch left lower extremity Psych/Mental Status: Normal Affect, Appropriate Debridement Note Post-Debridement Measurements/Treatment WC - Nurse 2 - General Ulcer CM Notes Start: 02/11/18 16:01 Freq: Status: Active Protocol: Activity Type Activity Date Activity User E-Sign Co-Sign Detail Recorded Client Recorded Date Recorded By Document 02/11/18 16:27 [id number] 02/11/18 16:30 Document 02/18/18 16:28 TM [id number] 02/18/18 16:35 TM Document 02/25/18 16:13 DV [id number] 02/25/18 16:17 DV 02/11/18 02/18/18 02/25/18 16:27 16:28 16:13 Wound Center Nurse 2 #3 Left Ellison -Time 16:30 16:34 16:13 -Correct Patient Yes Yes Yes -Correct Side, Site, Position Yes Yes Yes -Correct Procedure Yes Yes Yes -Procedure Performed Yes Yes Yes -Type of Procedure Debridement Debridement Debridement -Clinical Debridement Subcutaneous Subcutaneous Subcutaneous -Post Debridement Size (cm) - Length 3 3.1 3.5 -Post Debridement Size (cm) - Width 2 2.1 2.2 -Post Debridement Size (cm) - Depth 0.1 0.1 0.1 -Total Square Cm 6 6.51 7.70 -Wound/Ulcer Outcome Not Healed Not Healed Not Healed -Ulcer Cleansing Rinsed/ Rinsed/ Rinsed/ Irrigated with Irrigated with Irrigated with Saline Saline Saline -Foul Odor after Cleansing No No No -Bioengineered Tissue No No No -Topical Lidocaine (%) 4 -Bleeding Controlled with Pressure Pressure Pressure -Treatment Response Procedure Procedure Procedure Tolerated Well Tolerated Well Tolerated Well Pain Scale: 0-10 Numeric Is Patient Pain Free? Yes Yes Yes Wound debrided: anterior leg Laterality: Left Type of Debridement: Excisional debridement Anesthesia Used: 5% Lidocaine Gel Depth: in the subcutaneous layer Percentage of wound debrided: 100 Instrument Used: #15 blade Tissue Removed: fibrous, devitalized subcutaneous, biofilm, slough Severity: Fat Layer Exposed Amount of bleeding with debridement: Mild Bleeding Controlled with: Pressure Patient tolerated procedure well Assessment/Plan Active Problems Lymphedema (Chronic) Venous insufficiency (chronic) (peripheral) (Chronic) Delayed wound healing (Chronic) Localized edema (Chronic) Chronic ulcer of left lower extremity with fat layer exposed (Chronic) Assessment: Chronic and recurrent ulcer to the left ellison - stable, no infection. Venous insufficiency left lower extremity. lyphedema. non compliance. delayed healing Plan: I reviewed and discussed the case with the patient today. The ulcer site was debrided subcutaneously as noted in the clinical panel. She has completed a full course of epi fix. [place] was applied; to change every 1-2 days. An additional compression dressing, bilateral CircAid was applied. She demonstrates application knowledge. To continue lymphedema pumps as advised. . To continue nutritional supplementation to optimize healing. To avoid idle standing and sitting to help reduce fluid collection in the lower extremities. She was reassured no signs of infection noted today. To monitor. . It is noted that she did have her additional venous surgery completed with Dr. Machado; to follow-up with him as advised. To return to clinic in 1 week at the wound care center or call sooner if questions or concerns. I answered all of her questions today.
== END 2018-02-27 23:59 ==
LOC: WC 16:00
PROVIDERS: Family Provider Internal Medicine; PCP Internal Medicine; Visit Provider Podiatrist
DX: I87.2 Venous insufficiency (chronic) (peripheral) (principal); L97.822 Non-pressure chronic ulcer of other part of left lower leg with fat layer exposed; I89.0 Lymphedema, not elsewhere classified; R60.0 Localized edema; Z91.19 Patient's noncompliance with other medical treatment and regimen
CPT/HCPCS: 11042

== ENCOUNTER 2018-03-25 16:00 | Outpatient (RCR) | payer MEDICAID, SELFPAY ==
[2018-02-28 00:44] VITALS: BP 155/80; PULSE 64; RESP 20; TEMP 36.4
[2018-03-04 15:58] VITALS: BP 133/70; PULSE 61; RESP 20; TEMP 36.2
--- NOTE | 2018-03-04 17:00 | PN.PCM_ITS ---
(1) Chronic ulcer of left lower extremity with fat layer exposed Status: Chronic Code(s): L97.922 - Non-pressure chronic ulcer of unspecified part of left lower leg with fat layer exposed (2) Lymphedema Status: Chronic Code(s): I89.0 - Lymphedema, not elsewhere classified (3) Venous insufficiency (chronic) (peripheral) Status: Chronic Code(s): I87.2 - Venous insufficiency (chronic) (peripheral) (4) Delayed wound healing Status: Chronic Code(s): T14.8 - Other injury of unspecified body region (5) Localized edema Status: Chronic Code(s): R60.0 - Localized edema Type of Wound Date of Service: 03/04/18 Chief Complaint: Chronic ulcer to the left lower extremity History of Wound: This 62 year old patient returns to the wound healing center for follow up of her chronic ulcer to her left ellison. She has continued bilateral lower extremity edema this is decreased the past week with her multilayer compression dressing. She did have her venous procedure completed with vascular surgeon, Dr. Machado. I also recommend continued lymphedema pump use; she is doing well with this so far. To elevate limbs at rest and avoid idle sitting or standing. She continues to wear CircAid compression garment at work and denies problems. She denies fever, chill, nausea, vomiting, calf pain, or shortness of breath, or wound redness or odor. Progress of Wound: Improving - Physical Exam Vital Signs Temp Pulse Resp BP 97.1 F L 61 20 H 133/70 H 03/04/18 15:58 03/04/18 15:58 03/04/18 15:58 03/04/18 15:58 General: Alert, Oriented x3, Cooperative Extremities: No cyanosis, Capillary Refill Less than 3 Seconds, No Calf Tenderness - Negative Italo and Castillo sign left lower extremity, Diminished Peripheral Pulses, Edema - Mild Skin: Ulcer/ Wound - No purulence, erythema hamstring, odor, or infection. The peripheral skin is atrophic and hairless left. Wound Measurements and Assessment WC - Nurse 1 - General Ulcer Measurement Start: 03/04/18 15:58 Freq: Status: Active Protocol: Activity Type Activity Date Activity User E-Sign Co-Sign Detail Recorded Client Recorded Date Recorded By Document 03/04/18 15:58 DL [id number] 03/04/18 16:04 DL 03/04/18 15:58 Wound Center Nurse 1 [Ulcer Assessment] #3 Left Ellison -Current Size (cm) - Length 2.2 -Current Size (cm) - Width 1.2 -Current Size (cm) - Depth 0.1 -Total Square Cm 2.64 -Photo Taken No -Exudate Amt Small (1-33%) -Exudate Type Serosanguineous -Wound Margin Thickened -Granulation Amt Large (67-100%) -Granulation Quality Red -Necrosis Amt Small (1-33%) -Necrotic Tissue Type Adherent Slough -Structure Exposed N/A -Texture (Jenny-wound Skin Appearance) Scarring -Moisture (Jenny-wound Skin Appearance Maceration ) -Color (Jenny-wound Skin Appearance) Rubor -Temperature (Jenny-wound Skin No Abnormality Appearance) (Pt Warm) -Ulcer Cleansing Rinsed/ Irrigated with Saline -Foul Odor after Cleansing No -Anesthetic Used 4% Lidocaine Solution [Edema Assessment] -Left Calf (cm) 47 -Left Ankle (cm) 27 - Nurse 2 - General Ulcer CM Notes Start: 03/04/18 15:58 Freq: Status: Active Protocol: Activity Type Activity Date Activity User E-Sign Co-Sign Detail Recorded Client Recorded Date Recorded By Document 03/04/18 16:45 JF [id number] 03/04/18 16:46 03/04/18 16:45 Wound Center Nurse 2 [Procedure/Treatment] #3 Left Ellison -Time 16:45 -Correct Patient Yes -Correct Side, Site, Position Yes -Correct Procedure Yes -Procedure Performed Yes -Type of Procedure Debridement -Clinical Debridement Subcutaneous -Post Debridement Size (cm) - Length 2.3 -Post Debridement Size (cm) - Width 1.2 -Post Debridement Size (cm) - Depth 0.1 -Total Square Cm 2.76 -Wound/Ulcer Outcome Not Healed -Ulcer Cleansing Rinsed/ Irrigated with Saline -Foul Odor after Cleansing No -Bioengineered Tissue No -Bleeding Controlled with Pressure -Offloading No -Treatment Response Procedure Tolerated Well [See Physician Procedure note for Specifics] Pain Scale: 0-10 Numeric [Pain] -Is Patient Pain Free? Yes Musculoskeletal: No Tenderness to Palpation of Joints or Extremities, Muscle Wasting Neurological: Sensory exam intact to light touch and pain Psych/Mental Status: Normal Affect, Appropriate Debridement Note Post-Debridement Measurements/Treatment - Nurse 2 - General Ulcer CM Notes Start: 03/04/18 15:58 Freq: Status: Active Protocol: Activity Type Activity Date Activity User E-Sign Co-Sign Detail Recorded Client Recorded Date Recorded By Document 03/04/18 16:45 JF [id number] 03/04/18 16:46 JF 03/04/18 16:45 Wound Center Nurse 2 #3 Left Ellison -Time 16:45 -Correct Patient Yes -Correct Side, Site, Position Yes -Correct Procedure Yes -Procedure Performed Yes -Type of Procedure Debridement -Clinical Debridement Subcutaneous -Post Debridement Size (cm) - Length 2.3 -Post Debridement Size (cm) - Width 1.2 -Post Debridement Size (cm) - Depth 0.1 -Total Square Cm 2.76 -Wound/Ulcer Outcome Not Healed -Ulcer Cleansing Rinsed/ Irrigated with Saline -Foul Odor after Cleansing No -Bioengineered Tissue No -Bleeding Controlled with Pressure -Offloading No -Treatment Response Procedure Tolerated Well Pain Scale: 0-10 Numeric Is Patient Pain Free? Yes Wound debrided: leg Laterality: Left Type of Debridement: Excisional debridement Anesthesia Used: 5% Lidocaine Gel Depth: in the subcutaneous layer Percentage of wound debrided: 100 Instrument Used: #15 blade Tissue Removed: devitalized subcutaneous, biofilm, slough, fibrous Severity: Fat Layer Exposed Amount of bleeding with debridement: Mild Bleeding Controlled with: Pressure Patient tolerated procedure well Assessment/Plan Assessment: Chronic and recurrent ulcer to the left ellison - stable, no infection. Venous insufficiency left lower extremity. lyphedema. non compliance. delayed healing Plan: I reviewed and discussed the case with the patient today. The ulcer site was debrided subcutaneously as noted in the clinical panel. She has completed a full course of epi fix. [place] was applied; to change every 1-2 days. An additional compression dressing, bilateral CircAid was applied. She demonstrates application knowledge. To continue lymphedema pumps as advised. . To continue nutritional supplementation to optimize healing. To avoid idle standing and sitting to help reduce fluid collection in the lower extremities. She was reassured no signs of infection noted today. To monitor. . It is noted that she did have her additional venous surgery completed with Dr. Machado; to follow-up with him as advised. To return to clinic in 1 week at the wound care center or call sooner if questions or concerns. I answered all of her que stions today.
[2018-03-11 15:57] VITALS: BP 151/81; PULSE 71; RESP 16; TEMP 35.9
--- NOTE | 2018-03-11 18:25 | PCM.WC.PN ---
(1) Chronic ulcer of left lower extremity with fat layer exposed Status: Chronic Current Visit: Yes Code(s): L97.922 - Non-pressure chronic ulcer of unspecified part of left lower leg with fat layer exposed (2) Lymphedema Status: Chronic Current Visit: Yes Code(s): I89.0 - Lymphedema, not elsewhere classified (3) Venous insufficiency (chronic) (peripheral) Status: Chronic Current Visit: Yes Code(s): I87.2 - Venous insufficiency (chronic) (peripheral) (4) Delayed wound healing Status: Chronic Current Visit: Yes Code(s): T14.8 - Other injury of unspecified body region (5) Localized edema Status: Chronic Current Visit: Yes Code(s): R60.0 - Localized edema Type of Wound Date of Service: 03/11/18 Chief Complaint: Chronic ulcer to the left lower extremity History of Wound: This 62 year old patient returns to the wound healing center for follow up of her chronic ulcer to her left ellison. She did have her venous procedure completed with vascular surgeon, Dr. Machado. She denies pain, fever, chill, nausea, vomiting. Progress of Wound: Improving - Physical Exam Vital Signs Temp Pulse Resp BP 96.6 F L 71 16 151/81 H 03/11/18 15:57 03/11/18 15:57 03/11/18 15:57 03/11/18 15:57 General: Alert, Oriented x3, Cooperative Extremities: No cyanosis, Capillary Refill Less than 3 Seconds, No Calf Tenderness - Negative Italo and Castillo sign bilateral, Diminished Peripheral Pulses, Edema - Bilateral lower extremities controlled Skin: Ulcer/ Wound - No purulence, erythema, streaking, odor, or acute signs of infection bilateral. Peripheral skin is hairless and atrophic. Wound Measurements and Assessment WC - Nurse 1 - General Ulcer Measurement Start: 03/04/18 15:58 Freq: Status: Active Protocol: Activity Type Activity Date Activity User E-Sign Co-Sign Detail Recorded Client Recorded Date Recorded By Document 03/11/18 15:57 CS [id number] 03/11/18 15:58 CS 03/11/18 15:57 Wound Center Nurse 1 [Ulcer Assessment] #3 Left Ellison -Combined with other wound No -Current Size (cm) - Length 3.1 -Current Size (cm) - Width 1.7 -Current Size (cm) - Depth 0.1 -Total Square Cm 5.27 -Photo Taken No -Epithelialization None Present -Tunneling No -Undermining/Tunneling No -Circular Undermining No -Exudate Amt Medium (34-66%) -Exudate Type Serosanguineous -Wound Margin Distinct, Outline Attached -Granulation Amt Medium (34-66%) -Granulation Quality Pale [place] -Slough/Fibrin Yes -Necrosis Amt Medium (34-66%) -Necrotic Tissue Type Adherent Slough -Structure Exposed None/Limited to Skin Breakdown -Texture (Jenny-wound Skin Appearance) Scarring -Moisture (Jenny-wound Skin Appearance No Abnormality ) Assessed -Color (Jenny-wound Skin Appearance) No Abnormality Assessed -Temperature (Jenny-wound Skin No Abnormality Appearance) (Pt Warm) -Tenderness on Palpation (Jenny-wound No Skin Appearance) -Ulcer Cleansing Rinsed/ Irrigated with Saline -Foul Odor after Cleansing No -Anesthetic Used 4% Lidocaine Solution [Edema Assessment] -Lower Limb Edema Present No -Left Calf (cm) 52 -Left Ankle (cm) 29.5 WC - Nurse 2 - General Ulcer CM Notes Start: 03/04/18 15:58 Freq: Status: Active Protocol: Activity Type Activity Date Activity User E-Sign Co-Sign Detail Recorded Client Recorded Date Recorded By Document 03/11/18 16:13 JF [id number] 03/11/18 16:14 03/11/18 16:13 Wound Center Nurse 2 [Procedure/Treatment] #3 Left Ellison -Time 16:14 -Correct Patient Yes -Correct Side, Site, Position Yes -Correct Procedure Yes -Procedure Performed Yes -Type of Procedure Debridement -Clinical Debridement Subcutaneous -Post Debridement Size (cm) - Length 3.2 -Post Debridement Size (cm) - Width 1.7 -Post Debridement Size (cm) - Depth 0.1 -Total Square Cm 5.44 -Wound/Ulcer Outcome Not Healed -Ulcer Cleansing Rinsed/ Irrigated with Saline -Foul Odor after Cleansing No -Bioengineered Tissue No -Bleeding Controlled with Pressure -Offloading No -Treatment Response Procedure Tolerated Well [See Physician Procedure note for Specifics] Pain Scale: 0-10 Numeric [Pain] -Is Patient Pain Free? Yes Debridement Note Post-Debridement Measurements/Treatment WC - Nurse 2 - General Ulcer CM Notes Start: 03/04/18 15:58 Freq: Status: Active Protocol: Activity Type Activity Date Activity User E-Sign Co-Sign Detail Recorded Client Recorded Date Recorded By Document 03/04/18 16:45 [id number] 03/04/18 16:46 Document 03/11/18 16:13 [id number] 03/11/18 16:14 03/04/18 03/11/18 16:45 16:13 Wound Center Nurse 2 #3 Left Ellison -Time 16:45 16:14 -Correct Patient Yes Yes -Correct Side, Site, Position Yes Yes -Correct Procedure Yes Yes -Procedure Performed Yes Yes -Type of Procedure Debridement Debridement -Clinical Debridement Subcutaneous Subcutaneous -Post Debridement Size (cm) - Length 2.3 3.2 -Post Debridement Size (cm) - Width 1.2 1.7 -Post Debridement Size (cm) - Depth 0.1 0.1 -Total Square Cm 2.76 5.44 -Wound/Ulcer Outcome Not Healed Not Healed -Ulcer Cleansing Rinsed/ Rinsed/ Irrigated with Irrigated with Saline Saline -Foul Odor after Cleansing No No -Bioengineered Tissue No No -Bleeding Controlled with Pressure Pressure -Offloading No No -Treatment Response Procedure Procedure Tolerated Well Tolerated Well Pain Scale: 0-10 Numeric Is Patient Pain Free? Yes Yes Wound debrided: anterior leg Laterality: Left Type of Debridement: Excisional debridement Anesthesia Used: 5% Lidocaine Gel Depth: in the subcutaneous layer Percentage of wound debrided: 100 Instrument Used: #15 blade Tissue Removed: fibrous, devitalized subcutaneous, biofilm, slough Severity: Fat Layer Exposed Amount of bleeding with debridement: Mild Bleeding Controlled with: Pressure Patient tolerated procedure well Assessment/Plan Active Problems Lymphedema (Chronic) Venous insufficiency (chronic) (peripheral) (Chronic) Delayed wound healing (Chronic) Localized edema (Chronic) Chronic ulcer of left lower extremity with fat layer exposed (Chronic) Assessment: Chronic and recurrent ulcer to the left ellison - stable, no infection. Venous insufficiency left lower extremity. lyphedema. non compliance. delayed healing Plan: I reviewed and discussed the case with the patient today. The ulcer site was debrided subcutaneously as noted in the clinical panel. She has completed a full course of epi fix. [place] was applied; to change every 1-2 days. An additional compression dressing, bilateral CircAid was applied. She demonstrates application knowledge. To continue lymphedema pumps as advised. . To continue nutritional supplementation to optimize healing. To avoid idle standing and sitting to help reduce fluid collection in the lower extremities. She was reassured no signs of infection noted today. To monitor. It is noted that she did have her additional venous surgery completed with Dr. Machado; to follow-up with him as advised. To return to clinic in 1 week at the wound care center or call sooner if questions or concerns. I answered all of her questions today.
[2018-03-18 15:54] VITALS: BP 138/79; PULSE 61; RESP 16; TEMP 35.8
--- NOTE | 2018-03-18 16:51 | PCM.WC.PN ---
(1) Chronic ulcer of left lower extremity with fat layer exposed Status: Chronic Current Visit: Yes Code(s): L97.922 - Non-pressure chronic ulcer of unspecified part of left lower leg with fat layer exposed (2) Lymphedema Status: Chronic Current Visit: Yes Code(s): I89.0 - Lymphedema, not elsewhere classified (3) Venous insufficiency (chronic) (peripheral) Status: Chronic Current Visit: Yes Code(s): I87.2 - Venous insufficiency (chronic) (peripheral) (4) Delayed wound healing Status: Chronic Current Visit: Yes Code(s): T14.8 - Other injury of unspecified body region (5) Localized edema Status: Chronic Current Visit: Yes Code(s): R60.0 - Localized edema Type of Wound Date of Service: 03/18/18 Chief Complaint: Chronic ulcer to the left lower extremity History of Wound: This 62 year old patient returns to the wound healing center for follow up of her chronic ulcer to her left ellison. She did have her venous procedure completed with vascular surgeon, Dr. Machado. She denies pain, fever, chill, nausea, vomiting. Progress of Wound: Improving - Physical Exam Vital Signs Temp Pulse Resp BP 96.4 F L 61 16 138/79 H 03/18/18 15:54 03/18/18 15:54 03/18/18 15:54 03/18/18 15:54 General: Alert, Oriented x3, Cooperative Extremities: No cyanosis, Capillary Refill Less than 3 Seconds, No Calf Tenderness - negative tonya and palencia signs bilateral, Diminished Peripheral Pulses, Edema - bilateral lower extremities Skin: Ulcer/ Wound - no purulence, no erythema, no streaking, odor noted. granular base noted. peripheral skin is hairless and atrophic left Wound Measurements and Assessment WC - Nurse 1 - General Ulcer Measurement Start: 03/04/18 15:58 Freq: Status: Active Protocol: Activity Type Activity Date Activity User E-Sign Co-Sign Detail Recorded Client Recorded Date Recorded By Document 03/18/18 15:54 [id number] 03/18/18 15:56 03/18/18 15:54 Wound Center Nurse 1 [Ulcer Assessment] #3 Left Ellison -Combined with other wound No -Current Size (cm) - Length 3.1 -Current Size (cm) - Width 1.3 -Current Size (cm) - Depth 0.1 -Total Square Cm 4.03 -Photo Taken No -Epithelialization Small 1-33% -Tunneling No -Undermining/Tunneling No -Circular Undermining No -Exudate Amt Medium (34-66%) -Exudate Type Serosanguineous -Wound Margin Distinct, Outline Attached -Granulation Amt Medium (34-66%) -Granulation Quality Red -Slough/Fibrin Yes -Necrosis Amt Small (1-33%) -Necrotic Tissue Type Eschar -Structure Exposed None/Limited to Skin Breakdown -Texture (Jenny-wound Skin Appearance) Assessed Scarring -Moisture (Jenny-wound Skin Appearance Dry/Scaly ) -Color (Jenny-wound Skin Appearance) Hemosiderin Staining -Temperature (Jenny-wound Skin No Abnormality Appearance) (Pt Warm) -Tenderness on Palpation (Jenny-wound No Skin Appearance) -Ulcer Cleansing Rinsed/ Irrigated with Saline -Foul Odor after Cleansing No -Anesthetic Used 4% Lidocaine Solution WC - Nurse 2 - General Ulcer CM Notes Start: 03/04/18 15:58 Freq: Status: Active Protocol: Activity Type Activity Date Activity User E-Sign Co-Sign Detail Recorded Client Recorded Date Recorded By Document 03/18/18 16:23 JEFF [id number] 03/18/18 16:24 JEFF 03/18/18 16:23 Wound Center Nurse 2 [Procedure/Treatment] -Time 16:23 -Correct Patient Yes -Correct Side, Site, Position Yes -Correct Procedure Yes -Procedure Performed Yes -Type of Procedure Debridement -Clinical Debridement Subcutaneous -Post Debridement Size (cm) - Length 3.2 -Post Debridement Size (cm) - Width 1.3 -Post Debridement Size (cm) - Depth 0.1 -Total Square Cm 4.16 -Wound/Ulcer Outcome Not Healed -Ulcer Cleansing Rinsed/ Irrigated with Saline -Foul Odor after Cleansing No -Bioengineered Tissue No -Bleeding Controlled with Pressure -Offloading No -Treatment Response Procedure Tolerated Well [See Physician Procedure note for Specifics] Pain Scale: 0-10 Numeric [Pain] -Is Patient Pain Free? Yes Musculoskeletal: No Tenderness to Palpation of Joints or Extremities, Muscle Wasting Neurological: - - lack of normal epicritic sensation is noted via light touch left jenny ulcer site Psych/Mental Status: Normal Affect, Appropriate Debridement Note Post-Debridement Measurements/Treatment WC - Nurse 2 - General Ulcer CM Notes Start: 03/04/18 15:58 Freq: Status: Active Protocol: Activity Type Activity Date Activity User E-Sign Co-Sign Detail Recorded Client Recorded Date Recorded By Document 03/04/18 16:45 [id number] 03/04/18 16:46 Document 03/11/18 16:13 [id number] 03/11/18 16:14 Document 03/18/18 16:23 [id number] 03/18/18 16:24 03/04/18 03/11/18 03/18/18 16:45 16:13 16:23 Wound Center Nurse 2 #3 Left Ellison -Time 16:45 16:14 16:23 -Correct Patient Yes Yes Yes -Correct Side, Site, Position Yes Yes Yes -Correct Procedure Yes Yes Yes -Procedure Performed Yes Yes Yes -Type of Procedure Debridement Debridement Debridement -Clinical Debridement Subcutaneous Subcutaneous Subcutaneous -Post Debridement Size (cm) - Length 2.3 3.2 3.2 -Post Debridement Size (cm) - Width 1.2 1.7 1.3 -Post Debridement Size (cm) - Depth 0.1 0.1 0.1 -Total Square Cm 2.76 5.44 4.16 -Wound/Ulcer Outcome Not Healed Not Healed Not Healed -Ulcer Cleansing Rinsed/ Rinsed/ Rinsed/ Irrigated with Irrigated with Irrigated with Saline Saline Saline -Foul Odor after Cleansing No No No -Bioengineered Tissue No No No -Bleeding Controlled with Pressure Pressure Pressure -Offloading No No No -Treatment Response Procedure Procedure Procedure Tolerated Well Tolerated Well Tolerated Well Pain Scale: 0-10 Numeric Is Patient Pain Free? Yes Yes Yes Wound debrided: leg Laterality: Left Type of Debridement: Excisional debridement Anesthesia Used: 4% Lidocaine Solution Depth: in the subcutaneous layer Percentage of wound debrided: 100 Instrument Used: #15 blade Tissue Removed: fibrous, devitalized subcutaneous, biofilm, slough Severity: Fat Layer Exposed Amount of bleeding with debridement: Mild Bleeding Controlled with: Pressure Patient tolerated procedure well Assessment/Plan Active Problems Lymphedema (Chronic) Venous insufficiency (chronic) (peripheral) (Chronic) Delayed wound healing (Chronic) Localized edema (Chronic) Chronic ulcer of left lower extremity with fat layer exposed (Chronic) Assessment: Chronic and recurrent ulcer to the left ellison - stable, no infection. Venous insufficiency left lower extremity. lyphedema. non compliance. delayed healing Plan: I reviewed and discussed the case with the patient today. The ulcer site was debrided subcutaneously as noted in the clinical panel. She has completed a full course of epi fix and other advanced wound healing products. [place] was applied; to change every 1-2 days. I recommend advanced wound product, regranex for her to apply at home daily for 12 hours. The indications, planned application, and anticipated healing time and management were discussed. She is amendable to this plan and prior authorization will be completed. This is medically necessary and will optimize her healing time and completion. An additional compression dressing, bilateral CircAid was applied. She demonstrates application knowledge. To continue lymphedema pumps as advised. . To continue nutritional supplementation to optimize healing. To avoid idle standing and sitting to help reduce fluid collection in the lower extremities. She was reassured no signs of infection noted today. To monitor. It is noted that she did have her additional venous surgery completed with Dr. Machado; to follow-up with him as advised. To return to clinic in 1 week at the wound care center or call sooner if questions or concerns. I answered all of her questions today.
[2018-03-25 16:01] VITALS: BP 140/81; PULSE 64; RESP 18; TEMP 36.3
--- NOTE | 2018-03-25 16:41 | PCM.WC.PN ---
(1) Chronic ulcer of left lower extremity with fat layer exposed Status: Chronic Current Visit: Yes Code(s): L97.922 - Non-pressure chronic ulcer of unspecified part of left lower leg with fat layer exposed (2) Lymphedema Status: Chronic Current Visit: Yes Code(s): I89.0 - Lymphedema, not elsewhere classified (3) Venous insufficiency (chronic) (peripheral) Status: Chronic Current Visit: Yes Code(s): I87.2 - Venous insufficiency (chronic) (peripheral) (4) Delayed wound healing Status: Chronic Current Visit: Yes Code(s): T14.8 - Other injury of unspecified body region (5) Localized edema Status: Chronic Current Visit: Yes Code(s): R60.0 - Localized edema Type of Wound Date of Service: 03/25/18 Chief Complaint: Chronic ulcer to the left lower extremity History of Wound: This 62 year old patient returns to the wound healing center for follow up of her chronic ulcer to her left ellison. She did have her venous procedure completed with vascular surgeon, Dr. Machado. She denies pain, fever, chill, nausea, vomiting. She is waiting for a regranex approval. It is noted she has tried other advanced therapies and has failed to complete ulcer healing. Progress of Wound: Stable - Physical Exam Vital Signs Temp Pulse Resp BP 97.4 F L 64 18 140/81 H 03/25/18 16:01 03/25/18 16:01 03/25/18 16:01 03/25/18 16:01 General: Alert, Oriented x3, Cooperative Extremities: No cyanosis, Capillary Refill Less than 3 Seconds, No Calf Tenderness - Negative Italo and Castillo sign left, Diminished Peripheral Pulses, Edema Skin: Ulcer/ Wound - No purulence, erythema, streaking, odor, or infection. There is no peripheral hyperpigmentation. The ulcer bed is granular. The peripheral skin is hairless and atrophic. Wound Measurements and Assessment WC - Nurse 1 - General Ulcer Measurement Start: 03/04/18 15:58 Freq: Status: Active Protocol: Activity Type Activity Date Activity User E-Sign Co-Sign Detail Recorded Client Recorded Date Recorded By Document 03/25/18 16:01 RB [id number] 03/25/18 16:03 RB 03/25/18 16:01 Wound Center Nurse 1 [Ulcer Assessment] #3 Left Ellison -Combined with other wound No -Current Size (cm) - Length 2.4 -Current Size (cm) - Width 1.3 -Current Size (cm) - Depth 0.1 -Total Square Cm 3.12 -Photo Taken No -Tunneling No -Undermining/Tunneling No -Circular Undermining No -Exudate Amt Small (1-33%) -Exudate Type Serosanguineous -Wound Margin Distinct, Outline Attached -Granulation Amt Large (67-100%) -Granulation Quality Red -Slough/Fibrin Yes -Necrosis Amt Small (1-33%) -Necrotic Tissue Type Adherent Slough -Structure Exposed N/A -Texture (Chaya-wound Skin Appearance) Assessed -Moisture (Chaya-wound Skin Appearance Assessed ) -Color (Chaya-wound Skin Appearance) Assessed -Temperature (Chaya-wound Skin No Abnormality Appearance) (Pt Warm) -Tenderness on Palpation (Chaya-wound No Skin Appearance) -Ulcer Cleansing Rinsed/ Irrigated with Saline -Foul Odor after Cleansing No -Anesthetic Used 4% Lidocaine Solution [Edema Assessment] -Lower Limb Edema Present Yes -Left Calf (cm) 50.8 -Left Ankle (cm) 29 WC - Nurse 2 - General Ulcer CM Notes Start: 03/04/18 15:58 Freq: Status: Active Protocol: Activity Type Activity Date Activity User E-Sign Co-Sign Detail Recorded Client Recorded Date Recorded By Document 03/25/18 16:16 JF [id number] 03/25/18 16:17 JF 03/25/18 16:16 Wound Center Nurse 2 [Procedure/Treatment] #3 Left Ellison -Time 16:16 -Correct Patient Yes -Correct Side, Site, Position Yes -Correct Procedure Yes -Procedure Performed Yes -Type of Procedure Debridement -Clinical Debridement Subcutaneous -Post Debridement Size (cm) - Length 2.5 -Post Debridement Size (cm) - Width 1.3 -Post Debridement Size (cm) - Depth 0.1 -Total Square Cm 3.25 -Wound/Ulcer Outcome Not Healed -Ulcer Cleansing Rinsed/ Irrigated with Saline -Foul Odor after Cleansing No -Bioengineered Tissue No -Bleeding Controlled with Pressure -Offloading No -Treatment Response Procedure Tolerated Well [See Physician Procedure note for Specifics] Pain Scale: 0-10 Numeric [Pain] -Is Patient Pain Free? Yes Musculoskeletal: No Tenderness to Palpation of Joints or Extremities, Muscle Wasting, - - Compartment soft to palpate left lower extremity Neurological: - - Lack of normal epicritic sensation light touch left lower extremity chaya Ulcer Psych/Mental Status: Normal Affect, Appropriate Debridement Note Post-Debridement Measurements/Treatment WC - Nurse 2 - General Ulcer CM Notes Start: 03/04/18 15:58 Freq: Status: Active Protocol: Activity Type Activity Date Activity User E-Sign Co-Sign Detail Recorded Client Recorded Date Recorded By Document 03/04/18 16:45 [id number] 03/04/18 16:46 Document 03/11/18 16:13 [id number] 03/11/18 16:14 Document 03/18/18 16:23 [id number] 03/18/18 16:24 Document 03/25/18 16:16 [id number] 03/25/18 16:17 03/04/18 03/11/18 03/18/18 16:45 16:13 16:23 Wound Center Nurse 2 #3 Left Ellison -Time 16:45 16:14 16:23 -Correct Patient Yes Yes Yes -Correct Side, Site, Position Yes Yes Yes -Correct Procedure Yes Yes Yes -Procedure Performed Yes Yes Yes -Type of Procedure Debridement Debridement Debridement -Clinical Debridement Subcutaneous Subcutaneous Subcutaneous -Post Debridement Size (cm) - Length 2.3 3.2 3.2 -Post Debridement Size (cm) - Width 1.2 1.7 1.3 -Post Debridement Size (cm) - Depth 0.1 0.1 0.1 -Total Square Cm 2.76 5.44 4.16 -Wound/Ulcer Outcome Not Healed Not Healed Not Healed -Ulcer Cleansing Rinsed/ Rinsed/ Rinsed/ Irrigated with Irrigated with Irrigated with Saline Saline Saline -Foul Odor after Cleansing No No No -Bioengineered Tissue No No No -Bleeding Controlled with Pressure Pressure Pressure -Offloading No No No -Treatment Response Procedure Procedure Procedure Tolerated Well Tolerated Well Tolerated Well Pain Scale: 0-10 Numeric Is Patient Pain Free? Yes Yes Yes 03/25/18 16:16 Wound Center Nurse 2 #3 Left Ellison -Time 16:16 -Correct Patient Yes -Correct Side, Site, Position Yes -Correct Procedure Yes -Procedure Performed Yes -Type of Procedure Debridement -Clinical Debridement Subcutaneous -Post Debridement Size (cm) - Length 2.5 -Post Debridement Size (cm) - Width 1.3 -Post Debridement Size (cm) - Depth 0.1 -Total Square Cm 3.25 -Wound/Ulcer Outcome Not Healed -Ulcer Cleansing Rinsed/ Irrigated with Saline -Foul Odor after Cleansing No -Bioengineered Tissue No -Bleeding Controlled with Pressure -Offloading No -Treatment Response Procedure Tolerated Well Pain Scale: 0-10 Numeric Is Patient Pain Free? Yes Wound debrided: leg Laterality: Left Type of Debridement: Excisional debridement Anesthesia Used: 5% Lidocaine Gel Depth: in the subcutaneous layer Percentage of wound debrided: 100 Instrument Used: #15 blade Tissue Removed: fibrous, devitalized subcutaneous, biofilm, slough Severity: Fat Layer Exposed Amount of bleeding with debridement: Mild Bleeding Controlled with: Pressure Patient tolerated procedure well Assessment/Plan Active Problems Lymphedema (Chronic) Venous insufficiency (chronic) (peripheral) (Chronic) Delayed wound healing (Chronic) Localized edema (Chronic) Chronic ulcer of left lower extremity with fat layer exposed (Chronic) Assessment: Chronic and recurrent ulcer to the left ellison - stable, no infection. Venous insufficiency left lower extremity. lyphedema. non compliance. delayed healing Plan: I reviewed and discussed the case with the patient today. The ulcer site was debrided subcutaneously as noted in the clinical panel. She has completed a full course of epi fix and other advanced wound healing products. [place] was applied; to change every 1-2 days. I recommend advanced wound product, regranex for her to apply at home daily for 12 hours. The indications, planned application, and anticipated healing time and management were discussed. She is amendable to this plan and prior authorization will be completed. Additional paperwork was completed for this today. This is medically necessary and will optimize her healing time and completion. It is noted she has therapeutically failed other traditional wound healing so far. An additional compression dressing, bilateral CircAid was applied. She demonstrates application knowledge. To continue lymphedema pumps as advised. . To continue nutritional supplementation to optimize healing. To avoid idle standing and sitting to help reduce fluid collection in the lower extremities. She was reassured no signs of infection noted today. To monitor. It is noted that she did have her additional venous surgery completed with Dr. Machdao; to follow-up with him as advised. To return to clinic in 1 week at the wound care center or call sooner if questions or concerns. I answered all of her questions today.
== END 2018-03-30 23:59 ==
LOC: WC 16:00
PROVIDERS: Family Provider Internal Medicine; PCP Internal Medicine; Visit Provider Podiatrist
DX: I87.2 Venous insufficiency (chronic) (peripheral) (principal); R60.0 Localized edema; L97.822 Non-pressure chronic ulcer of other part of left lower leg with fat layer exposed; I89.0 Lymphedema, not elsewhere classified; Z91.19 Patient's noncompliance with other medical treatment and regimen
CPT/HCPCS: 11042

== ENCOUNTER 2018-04-29 16:00 | Outpatient (RCR) | payer MEDICAID, SELFPAY ==
[2018-03-31 00:37] VITALS: BP 140/81; PULSE 64; RESP 18; TEMP 36.3
[2018-04-01 16:07] VITALS: BP 146/79; PULSE 62; RESP 18; TEMP 36.6
--- NOTE | 2018-04-01 16:39 | PCM.WC.PN ---
(1) Chronic ulcer of left lower extremity with fat layer exposed Status: Chronic Current Visit: Yes Code(s): L97.922 - Non-pressure chronic ulcer of unspecified part of left lower leg with fat layer exposed (2) Venous insufficiency (chronic) (peripheral) Status: Chronic Current Visit: Yes Code(s): I87.2 - Venous insufficiency (chronic) (peripheral) Type of Wound Date of Service: 04/01/18 Chief Complaint: Chronic ulcer to the left lower extremity History of Wound: This 62 year old patient returns to the wound healing center for follow up of her chronic ulcer to her left ellison. She did have her venous procedure completed with vascular surgeon, Dr. Machado. She denies pain, fever, chill, nausea, vomiting. She is waiting for a regranex approval and asked about this today. It is noted she has tried other advanced therapies and has failed to complete ulcer healing. Progress of Wound: Improving - Physical Exam Vital Signs Temp Pulse Resp BP 97.8 F 62 18 146/79 H 04/01/18 16:07 04/01/18 16:07 04/01/18 16:07 04/01/18 16:07 General: Alert, Oriented x3, Cooperative Extremities: No cyanosis, Capillary Refill Less than 3 Seconds, No Calf Tenderness - Negative Italo and Castillo sign bilateral, Diminished Peripheral Pulses, Edema - Moderate bilateral lower extremities with lymphedema Skin: Ulcer/ Wound - No purulence, erythema, streaking, odor, or acute signs of infection. Peripheral skin is atrophic. There is scant hyperpigmentation around the ulcer site. Wound Measurements and Assessment WC - Nurse 1 - General Ulcer Measurement Start: 04/01/18 16:07 Freq: Status: Active Protocol: Activity Type Activity Date Activity User E-Sign Co-Sign Detail Recorded Client Recorded Date Recorded By Document 04/01/18 16:07 DL [id number] 04/01/18 16:14 DL 04/01/18 16:07 Wound Center Nurse 1 [Ulcer Assessment] #3 Left Ellison -Current Size (cm) - Length 2.2 -Current Size (cm) - Width 1.2 -Current Size (cm) - Depth 0.1 -Total Square Cm 2.64 -Photo Taken No -Exudate Amt Small (1-33%) -Exudate Type Serosanguineous -Wound Margin Distinct, Outline Attached -Granulation Amt Large (67-100%) -Granulation Quality Red -Necrosis Amt Small (1-33%) -Necrotic Tissue Type Adherent Slough -Structure Exposed N/A -Texture (Jenny-wound Skin Appearance) Scarring -Moisture (Jenny-wound Skin Appearance Dry/Scaly ) -Color (Jenny-wound Skin Appearance) Hemosiderin Staining Rubor -Temperature (Jenny-wound Skin No Abnormality Appearance) (Pt Warm) -Ulcer Cleansing Rinsed/ Irrigated with Saline -Foul Odor after Cleansing No -Anesthetic Used 4% Lidocaine Solution [Edema Assessment] -Left Calf (cm) 44 -Left Ankle (cm) 28.3 WC - Nurse 2 - General Ulcer CM Notes Start: 04/01/18 16:07 Freq: Status: Active Protocol: Activity Type Activity Date Activity User E-Sign Co-Sign Detail Recorded Client Recorded Date Recorded By Document 04/01/18 16:22 DL [id number] 04/01/18 16:25 DL 04/01/18 16:22 Wound Center Nurse 2 [Procedure/Treatment] #3 Left Ellison -Time 16:25 -Correct Patient Yes -Correct Side, Site, Position Yes -Correct Procedure Yes -Procedure Performed Yes -Type of Procedure Debridement -Clinical Debridement Subcutaneous -Post Debridement Size (cm) - Length 2.5 -Post Debridement Size (cm) - Width 1.2 -Post Debridement Size (cm) - Depth 0.1 -Total Square Cm 3.00 -Wound/Ulcer Outcome Not Healed -Ulcer Cleansing Rinsed/ Irrigated with Saline -Foul Odor after Cleansing No -Bioengineered Tissue No -Bleeding Controlled with Pressure -Offloading No -Treatment Response Procedure Tolerated Well [See Physician Procedure note for Specifics] Pain Scale: 0-10 Numeric [Pain] -Is Patient Pain Free? Yes Musculoskeletal: No Tenderness to Palpation of Joints or Extremities, Muscle Wasting, - - Compartments remain soft to palpate left lower extremity Neurological: - - Lack of epicritic sensation jenny-ulcer site Psych/Mental Status: Normal Affect, Appropriate Debridement Note Post-Debridement Measurements/Treatment [id number] - Nurse 2 - General Ulcer CM Notes Start: 04/01/18 16:07 Freq: Status: Active Protocol: Activity Type Activity Date Activity User E-Sign Co-Sign Detail Recorded Client Recorded Date Recorded By Document 04/01/18 16:22 DL [id number] 04/01/18 16:25 DL 04/01/18 16:22 Wound Center Nurse 2 #3 Left Ellison -Time 16:25 -Correct Patient Yes -Correct Side, Site, Position Yes -Correct Procedure Yes -Procedure Performed Yes -Type of Procedure Debridement -Clinical Debridement Subcutaneous -Post Debridement Size (cm) - Length 2.5 -Post Debridement Size (cm) - Width 1.2 -Post Debridement Size (cm) - Depth 0.1 -Total Square Cm 3.00 -Wound/Ulcer Outcome Not Healed -Ulcer Cleansing Rinsed/ Irrigated with Saline -Foul Odor after Cleansing No -Bioengineered Tissue No -Bleeding Controlled with Pressure -Offloading No -Treatment Response Procedure Tolerated Well Pain Scale: 0-10 Numeric Is Patient Pain Free? Yes Wound debrided: leg Laterality: Left Type of Debridement: Excisional debridement Anesthesia Used: 5% Lidocaine Gel Depth: in the subcutaneous layer Percentage of wound debrided: 100 Instrument Used: #15 blade Tissue Removed: fibrous, devitalized subcutaneous, biofilm, slough Severity: Fat Layer Exposed Amount of bleeding with debridement: Mild Bleeding Controlled with: Pressure Patient tolerated procedure well Assessment/Plan Active Problems Venous insufficiency (chronic) (peripheral) (Chronic) Chronic ulcer of left lower extremity with fat layer exposed (Chronic) Assessment: Chronic and recurrent ulcer to the left ellison - stable, no infection. Venous insufficiency left lower extremity. lyphedema. non compliance. delayed healing Plan: This is currently denied I will contact her if an appeal process I reviewed and discussed the case with the patient today. The ulcer site was debrided subcutaneously as noted in the clinical panel. She has completed a full course of epi fix and other advanced wound healing products. [place] was applied; to change every 1-2 days. I recommend advanced wound product, regranex for her to apply at home daily for 12 hours. The indications, planned application, and anticipated healing time and management were discussed. She is amendable to this plan and prior authorization will be completed. Is available or accepted. This is medically necessary and will optimize her healing time and completion. It is noted she has therapeutically failed other traditional wound healing so far. An additional compression dressing, bilateral CircAid was applied. She demonstrates application knowledge. To continue lymphedema pumps as advised. I discussed with her the opportunity to go to lymphedema clinic after the ulcer site [facility]. She will consider this upon ulcer closure. . To continue nutritional supplementation to optimize healing. To avoid idle standing and sitting to help reduce fluid collection in the lower extremities. She was reassured no signs of infection noted today. To monitor. It is noted that she did have her additional venous surgery completed with Dr. Machado; to follow-up with him as advised. To return to clinic in 1 week at the wound care center or call sooner if questions or concerns. I answered all of her questions today.
[2018-04-08 15:35] VITALS: BP 139/79; PULSE 68; RESP 16; TEMP 35.7
--- NOTE | 2018-04-08 16:41 | PCM.WC.PN ---
(1) Chronic ulcer of left lower extremity with fat layer exposed Status: Chronic Current Visit: Yes Code(s): L97.922 - Non-pressure chronic ulcer of unspecified part of left lower leg with fat layer exposed (2) Venous insufficiency (chronic) (peripheral) Status: Chronic Current Visit: Yes Code(s): I87.2 - Venous insufficiency (chronic) (peripheral) Type of Wound Date of Service: 04/08/18 Chief Complaint: Chronic ulcer to the left lower extremity History of Wound: This 62 year old patient returns to the wound healing center for follow up of her chronic ulcer to her left ellison. She did have her venous procedure completed with vascular surgeon, Dr. Machado. She denies pain, fever, chill, nausea, vomiting. Progress of Wound: Improving - Physical Exam Vital Signs Temp Pulse Resp BP 96.2 F L 68 16 139/79 H 04/08/18 15:35 04/08/18 15:35 04/08/18 15:35 04/08/18 15:35 General: Alert, Oriented x3, Cooperative Extremities: No cyanosis, Capillary Refill Less than 3 Seconds, No Calf Tenderness - Negative Italo and Castillo left, Diminished Peripheral Pulses, Edema - Bilateral lower extremities Skin: Ulcer/ Wound - No purulence, erythema, streaking, odor, or infection left. Peripheral skin is mild hyperpigmentation consistent with previous exams and is atrophic and hairless Wound Measurements and Assessment WC - Nurse 1 - General Ulcer Measurement Start: 04/01/18 16:07 Freq: Status: Active Protocol: Activity Type Activity Date Activity User E-Sign Co-Sign Detail Recorded Client Recorded Date Recorded By Document 04/08/18 15:35 [facility] [id number] 04/08/18 15:39 [facility] 04/08/18 15:35 Wound Center Nurse 1 [Ulcer Assessment] #3 Left Ellison -Current Size (cm) - Length 3.1 -Current Size (cm) - Width 1.3 -Current Size (cm) - Depth 0.1 -Total Square Cm 4.03 -Photo Taken No -Exudate Amt Medium -Exudate Type Serosanguineous -Wound Margin Distinct, Outline Attached -Granulation Amt Large (67-100%) -Granulation Quality Red -Necrosis Amt None Present (0 %) -Structure Exposed N/A -Texture (Chaya-wound Skin Appearance) Scarring -Moisture (Chaya-wound Skin Appearance Dry/Scaly ) -Color (Chaya-wound Skin Appearance) Hemosiderin Staining -Ulcer Cleansing Wound Cleanser -Foul Odor after Cleansing No -Anesthetic Used 4% Lidocaine Solution [Edema Assessment] -Left Calf (cm) 47.8 -Left Ankle (cm) 29.2 - Nurse 2 - General Ulcer CM Notes Start: 04/01/18 16:07 Freq: Status: Active Protocol: Activity Type Activity Date Activity User E-Sign Co-Sign Detail Recorded Client Recorded Date Recorded By Document 04/08/18 15:51 [id number] 04/08/18 15:52 04/08/18 15:51 Wound Center Nurse 2 [Procedure/Treatment] #3 Left Ellison -Time 15:51 -Correct Patient Yes -Correct Side, Site, Position Yes -Correct Procedure Yes -Procedure Performed Yes -Type of Procedure Debridement -Clinical Debridement Subcutaneous -Post Debridement Size (cm) - Length 2.3 -Post Debridement Size (cm) - Width 1.3 -Post Debridement Size (cm) - Depth 0.1 -Total Square Cm 2.99 -Wound/Ulcer Outcome Not Healed -Ulcer Cleansing Rinsed/ Irrigated with Saline -Foul Odor after Cleansing No -Bioengineered Tissue No -Bleeding Controlled with Pressure -Offloading No -Treatment Response Procedure Tolerated Well [See Physician Procedure note for Specifics] Pain Scale: 0-10 Numeric [Pain] -Is Patient Pain Free? Yes Musculoskeletal: No Tenderness to Palpation of Joints or Extremities, Muscle Wasting Neurological: - - Lack of normal epicritic sensation light touch left lower extremity chaya ulcer site Psych/Mental Status: Normal Affect, Appropriate Debridement Note Post-Debridement Measurements/Treatment - Nurse 2 - General Ulcer CM Notes Start: 04/01/18 16:07 Freq: Status: Active Protocol: Activity Type Activity Date Activity User E-Sign Co-Sign Detail Recorded Client Recorded Date Recorded By Document 04/01/18 16:22 DL [id number] 04/01/18 16:25 DL Document 04/08/18 15:51 [id number] 04/08/18 15:52 04/01/18 04/08/18 16:22 15:51 Wound Center Nurse 2 #3 Left Ellison -Time 16:25 15:51 -Correct Patient Yes Yes -Correct Side, Site, Position Yes Yes -Correct Procedure Yes Yes -Procedure Performed Yes Yes -Type of Procedure Debridement Debridement -Clinical Debridement Subcutaneous Subcutaneous -Post Debridement Size (cm) - Length 2.5 2.3 -Post Debridement Size (cm) - Width 1.2 1.3 -Post Debridement Size (cm) - Depth 0.1 0.1 -Total Square Cm 3.00 2.99 -Wound/Ulcer Outcome Not Healed Not Healed -Ulcer Cleansing Rinsed/ Rinsed/ Irrigated with Irrigated with Saline Saline -Foul Odor after Cleansing No No -Bioengineered Tissue No No -Bleeding Controlled with Pressure Pressure -Offloading No No -Treatment Response Procedure Procedure Tolerated Well Tolerated Well Pain Scale: 0-10 Numeric Is Patient Pain Free? Yes Yes Wound debrided: leg Laterality: Left Type of Debridement: Excisional debridement Anesthesia Used: 5% Lidocaine Gel Depth: in the subcutaneous layer Percentage of wound debrided: 100 Instrument Used: #15 blade Tissue Removed: fibrous, devitalized subcutaneous, biofilm, slough Severity: Fat Layer Exposed Amount of bleeding with debridement: Mild Bleeding Controlled with: Pressure Patient tolerated procedure well Assessment/Plan Active Problems Venous insufficiency (chronic) (peripheral) (Chronic) Chronic ulcer of left lower extremity with fat layer exposed (Chronic) Assessment: Chronic and recurrent ulcer to the left ellison - stable, no infection. Venous insufficiency left lower extremity. lyphedema. non compliance. delayed healing Plan: I reviewed and discussed her case. The ulcer site was debrided subcutaneously as noted in the clinical panel. [place] was applied; to change every 1-2 days. I recommend advanced wound product, epi fix and prior authorization for this new 2018 year will be initiated. The indications, planned application, and anticipated healing time and management were discussed. She is amendable to this plan and prior authorization will be completed. This is medically necessary and will optimize her healing time and completion. It is noted she has therapeutically failed other traditional wound healing so far. An additional compression dressing, bilateral CircAid was applied. She demonstrates application knowledge. To continue lymphedema pumps as advised. I discussed with her the opportunity to go to lymphedema clinic after the ulcer site has [facility]. She will consider this upon ulcer closure. . To continue nutritional supplementation to optimize healing. To avoid idle standing and sitting to help reduce fluid collection in the lower extremities. She was reassured no signs of infection noted today. To monitor. It is noted that she did have her additional venous surgery completed with Dr. Machado; to follow-up with him as advised. To return to clinic in 1 week at the wound care center or call sooner if questions or concerns. I answered all of her questions today.
[2018-04-15 15:35] VITALS: BP 139/74; PULSE 68; RESP 16; TEMP 35.7
--- NOTE | 2018-04-15 16:39 | PCM.WC.PN ---
(1) Chronic ulcer of left lower extremity with fat layer exposed Status: Chronic Current Visit: Yes Code(s): L97.922 - Non-pressure chronic ulcer of unspecified part of left lower leg with fat layer exposed (2) Venous insufficiency (chronic) (peripheral) Status: Chronic Current Visit: Yes Code(s): I87.2 - Venous insufficiency (chronic) (peripheral) Type of Wound Date of Service: 04/15/18 Chief Complaint: Chronic ulcer to the left lower extremity History of Wound: This 62 year old patient returns to the wound healing center for follow up of her chronic ulcer to her left ellison. She did have her venous procedure completed with vascular surgeon, Dr. Machado. She denies pain, fever, chill, nausea, vomiting. Progress of Wound: Improving - Physical Exam Vital Signs Temp Pulse Resp BP 96.2 F L 68 16 139/74 H 04/15/18 15:35 04/15/18 15:35 04/15/18 15:35 04/15/18 15:35 General: Alert, Oriented x3, Cooperative Extremities: Capillary Refill Less than 3 Seconds, No Calf Tenderness - Negative Italo and Castillo sign bilateral, Diminished Peripheral Pulses, Edema - Bilateral lower extremities Skin: Ulcer/ Wound - No purulence, erythema, streaking, odor, or infection. The ulcer bed is granular and fibrous. The peripheral skin is hairless and atrophic with some mild hyperpigmentation Wound Measurements and Assessment WC - Nurse 1 - General Ulcer Measurement Start: 04/01/18 16:07 Freq: Status: Active Protocol: Activity Type Activity Date Activity User E-Sign Co-Sign Detail Recorded Client Recorded Date Recorded By Document 04/15/18 15:35 [facility] [id number] 04/15/18 15:41 [facility] 04/15/18 15:35 Wound Center Nurse 1 [Ulcer Assessment] #3 Left Ellison -Combined with other wound No -Current Size (cm) - Length 2 -Current Size (cm) - Width 1.4 -Current Size (cm) - Depth 0.1 -Total Square Cm 2.8 -Date of Last Picture (Recall this 04/15/18 field) -Photo Taken Yes -Epithelialization Small 1-33% -Tunneling No -Undermining/Tunneling No -Circular Undermining No -Exudate Amt Small -Exudate Type Serosanguineous -Wound Margin Flat & Intact -Granulation Amt Large (67-100%) -Granulation Quality Red -Slough/Fibrin Yes -Necrosis Amt Small (1-33%) -Necrotic Tissue Type Adherent Slough -Texture (Jenny-wound Skin Appearance) Scarring -Moisture (Jenny-wound Skin Appearance Dry/Scaly ) -Color (Jenny-wound Skin Appearance) Assessed -Temperature (Jenny-wound Skin No Abnormality Appearance) (Pt Warm) -Tenderness on Palpation (Jenny-wound No Skin Appearance) -Ulcer Cleansing Rinsed/ Irrigated with Saline -Foul Odor after Cleansing No -Anesthetic Used 5% Lidocaine Gel [Edema Assessment] -Lower Limb Edema Present Yes -Left Calf (cm) 50.3 -Left Ankle (cm) 29.3 WC - Nurse 2 - General Ulcer CM Notes Start: 04/01/18 16:07 Freq: Status: Active Protocol: Activity Type Activity Date Activity User E-Sign Co-Sign Detail Recorded Client Recorded Date Recorded By Document 04/15/18 15:52 JEFF [id number] 04/15/18 15:53 JEFF 04/15/18 15:52 Wound Center Nurse 2 [Procedure/Treatment] #3 Left Ellison -Time 15:52 -Correct Patient Yes -Correct Side, Site, Position Yes -Correct Procedure Yes -Procedure Performed Yes -Type of Procedure Debridement -Clinical Debridement Subcutaneous -Post Debridement Size (cm) - Length 2 -Post Debridement Size (cm) - Width 1.5 -Post Debridement Size (cm) - Depth 0.1 -Total Square Cm 3.0 -Wound/Ulcer Outcome Not Healed -Ulcer Cleansing Rinsed/ Irrigated with Saline -Foul Odor after Cleansing No -Bioengineered Tissue No -Bleeding Controlled with Pressure -Offloading No -Treatment Response Procedure Tolerated Well [See Physician Procedure note for Specifics] Pain Scale: 0-10 Numeric [Pain] -Is Patient Pain Free? Yes Musculoskeletal: No Tenderness to Palpation of Joints or Extremities, Muscle Wasting Neurological: - - Lack of normal epicritic sensation to. Ulcer site palpation Psych/Mental Status: Normal Affect, Appropriate Debridement Note Post-Debridement Measurements/Treatment - Nurse 2 - General Ulcer CM Notes Start: 04/01/18 16:07 Freq: Status: Active Protocol: Activity Type Activity Date Activity User E-Sign Co-Sign Detail Recorded Client Recorded Date Recorded By Document 04/01/18 16:22 DL [id number] 04/01/18 16:25 DL Document 04/08/18 15:51 [id number] 04/08/18 15:52 JF Document 04/15/18 15:52 [id number] 04/15/18 15:53 04/01/18 04/08/18 04/15/18 16:22 15:51 15:52 Wound Center Nurse 2 #3 Left Ellison -Time 16:25 15:51 15:52 -Correct Patient Yes Yes Yes -Correct Side, Site, Position Yes Yes Yes -Correct Procedure Yes Yes Yes -Procedure Performed Yes Yes Yes -Type of Procedure Debridement Debridement Debridement -Clinical Debridement Subcutaneous Subcutaneous Subcutaneous -Post Debridement Size (cm) - Length 2.5 2.3 2 -Post Debridement Size (cm) - Width 1.2 1.3 1.5 -Post Debridement Size (cm) - Depth 0.1 0.1 0.1 -Total Square Cm 3.00 2.99 3.0 -Wound/Ulcer Outcome Not Healed Not Healed Not Healed -Ulcer Cleansing Rinsed/ Rinsed/ Rinsed/ Irrigated with Irrigated with Irrigated with Saline Saline Saline -Foul Odor after Cleansing No No No -Bioengineered Tissue No No No -Bleeding Controlled with Pressure Pressure Pressure -Offloading No No No -Treatment Response Procedure Procedure Procedure Tolerated Well Tolerated Well Tolerated Well Pain Scale: 0-10 Numeric Is Patient Pain Free? Yes Yes Yes Wound debrided: leg Laterality: Left Type of Debridement: Excisional debridement Anesthesia Used: 5% Lidocaine Gel Depth: in the subcutaneous layer Percentage of wound debrided: 100 Instrument Used: #15 blade Tissue Removed: fibrous, devitalized subcutaneous, biofilm, slough Severity: Fat Layer Exposed Amount of bleeding with debridement: Mild Bleeding Controlled with: Pressure Patient tolerated procedure well Assessment/Plan Active Problems Venous insufficiency (chronic) (peripheral) (Chronic) Chronic ulcer of left lower extremity with fat layer exposed (Chronic) Assessment: Chronic and recurrent ulcer to the left ellison - stable, no infection. Venous insufficiency left lower extremity. lyphedema. non compliance. delayed healing Plan: I reviewed and discussed her case. The ulcer site was debrided subcutaneously as noted in the clinical panel. [place] was applied; to change every 1-2 days. I recommend advanced wound product, epi fix and prior authorization for this new 2019 year is still pending. The indications, planned application, and anticipated healing time and management were discussed. She is amendable to this plan and prior authorization will be completed. This is medically necessary and will optimize her healing time and completion. It is noted she has therapeutically failed other traditional wound healing so far. An additional compression dressing, bilateral CircAid was applied. She demonstrates application knowledge. To continue lymphedema pumps as advised. I discussed with her the opportunity to go to lymphedema clinic after the ulcer site has [facility]. She will consider this upon ulcer closure. . To continue nutritional supplementation to optimize healing. To avoid idle standing and sitting to help reduce fluid collection in the lower extremities. She was reassured no signs of infection noted today. To monitor. It is noted that she did have her additional venous surgery completed with Dr. Machado; to follow-up with him as advised. To return to clinic in 1 week at the wound care center or call sooner if questions or concerns. I answered all of her questions today.
[2018-04-22 15:41] VITALS: BP 137/72; PULSE 66; RESP 18; TEMP 35.7
--- NOTE | 2018-04-22 17:30 | PCM.WC.PN ---
(1) Chronic ulcer of left lower extremity with fat layer exposed Status: Chronic Current Visit: Yes Code(s): L97.922 - Non-pressure chronic ulcer of unspecified part of left lower leg with fat layer exposed (2) Venous insufficiency (chronic) (peripheral) Status: Chronic Current Visit: Yes Code(s): I87.2 - Venous insufficiency (chronic) (peripheral) (3) Delayed wound healing Status: Chronic Current Visit: Yes Code(s): T14.8XXD - Other injury of unspecified body region, subsequent encounter Type of Wound Date of Service: 04/22/18 Chief Complaint: Chronic ulcer to the left lower extremity History of Wound: This 62 year old patient returns to the wound healing center for follow up of her chronic ulcer to her left ellison. She did have her venous procedure completed with vascular surgeon, Dr. Machado. She denies pain, fever, chill, nausea, vomiting. She was preapproved for application of advanced wound care product, epi fix and she is amenable for application today. She continues with aggressive compression therapy as advised. Progress of Wound: Improving - Physical Exam Vital Signs Temp Pulse Resp BP 96.2 F L 66 18 137/72 H 04/22/18 15:41 04/22/18 15:41 04/22/18 15:41 04/22/18 15:41 General: Alert, Oriented x3, Cooperative Extremities: No cyanosis, Capillary Refill Less than 3 Seconds, No Calf Tenderness - Negative Italo and Castillo left, Diminished Peripheral Pulses, Edema - Left lower extremity Skin: Ulcer/ Wound - No purulence, erythema, streaking, odor noted. There is a central epithelialization island noted in the wound bed is granular. Wound Measurements and Assessment WC - Nurse 1 - General Ulcer Measurement Start: 04/01/18 16:07 Freq: Status: Active Protocol: Activity Type Activity Date Activity User E-Sign Co-Sign Detail Recorded Client Recorded Date Recorded By Document 04/22/18 15:41 AN [id number] 04/22/18 15:45 AN 04/22/18 15:41 Wound Center Nurse 1 [Ulcer Assessment] #3 Left Ellison -Current Size (cm) - Length 1.8 -Current Size (cm) - Width 1.2 -Current Size (cm) - Depth 0.1 -Total Square Cm 2.16 -Photo Taken No -Epithelialization None Present -Tunneling No -Undermining/Tunneling No -Circular Undermining No -Exudate Amt Medium -Exudate Type Serosanguineous -Wound Margin Distinct, Outline Attached -Granulation Amt Medium (34-66%) -Granulation Quality Red -Slough/Fibrin Yes -Necrosis Amt Medium (34-66%) -Necrotic Tissue Type Adherent Slough -Texture (Chaya-wound Skin Appearance) Assessed Localized Edema -Moisture (Chaya-wound Skin Appearance Assessed ) -Color (Chaya-wound Skin Appearance) Assessed Hemosiderin Staining -Temperature (Chaya-wound Skin No Abnormality Appearance) (Pt Warm) -Tenderness on Palpation (Chaya-wound No Skin Appearance) -Ulcer Cleansing Rinsed/ Irrigated with Saline -Foul Odor after Cleansing No -Anesthetic Used 5% Lidocaine Gel [Edema Assessment] -Left Calf (cm) 50 -Left Ankle (cm) 28.3 WC - Nurse 2 - General Ulcer CM Notes Start: 04/01/18 16:07 Freq: Status: Active Protocol: Activity Type Activity Date Activity User E-Sign Co-Sign Detail Recorded Client Recorded Date Recorded By Document 04/22/18 16:03 JEFF [id number] 04/22/18 16:04 JEFF 04/22/18 16:03 Wound Center Nurse 2 [Procedure/Treatment] #3 Left Ellison -Time 16:03 -Correct Patient Yes -Correct Side, Site, Position Yes -Correct Procedure Yes -Procedure Performed Yes -Type of Procedure Debridement -Clinical Debridement Subcutaneous -Post Debridement Size (cm) - Length 1.8 -Post Debridement Size (cm) - Width 1.3 -Post Debridement Size (cm) - Depth 0.1 -Total Square Cm 2.34 -Wound/Ulcer Outcome Not Healed -Ulcer Cleansing Rinsed/ Irrigated with Saline -Foul Odor after Cleansing No -Bioengineered Tissue Yes -Type of bioengineered Tissue EPIFIX -Expiration Date 10/29/22 -Product Lot Number [id number] -Percent Used 100 -Saline Lot Number [id number] -Bleeding Controlled with Pressure -Offloading No -Treatment Response Procedure Tolerated Well [See Physician Procedure note for Specifics] Pain Scale: 0-10 Numeric [Pain] -Is Patient Pain Free? Yes Musculoskeletal: No Tenderness to Palpation of Joints or Extremities, Muscle Wasting, - - Compartments soft to palpate left lower extremity Neurological: - - Lack of normal epicritic sensation to light touch left lower extremity chaya Ulcer site Psych/Mental Status: Normal Affect, Appropriate Debridement Note Post-Debridement Measurements/Treatment WC - Nurse 2 - General Ulcer CM Notes Start: 04/01/18 16:07 Freq: Status: Active Protocol: Activity Type Activity Date Activity User E-Sign Co-Sign Detail Recorded Client Recorded Date Recorded By Document 04/01/18 16:22 DL [id number] 04/01/18 16:25 DL Document 04/08/18 15:51 JF [id number] 04/08/18 15:52 JF Document 04/15/18 15:52 JF [id number] 04/15/18 15:53 JF Document 04/22/18 16:03 JF [id number] 04/22/18 16:04 JF 04/01/18 04/08/18 04/15/18 16:22 15:51 15:52 Wound Center Nurse 2 #3 Left Ellison -Time 16:25 15:51 15:52 -Correct Patient Yes Yes Yes -Correct Side, Site, Position Yes Yes Yes -Correct Procedure Yes Yes Yes -Procedure Performed Yes Yes Yes -Type of Procedure Debridement Debridement Debridement -Clinical Debridement Subcutaneous Subcutaneous Subcutaneous -Post Debridement Size (cm) - Length 2.5 2.3 2 -Post Debridement Size (cm) - Width 1.2 1.3 1.5 -Post Debridement Size (cm) - Depth 0.1 0.1 0.1 -Total Square Cm 3.00 2.99 3.0 -Wound/Ulcer Outcome Not Healed Not Healed Not Healed -Ulcer Cleansing Rinsed/ Rinsed/ Rinsed/ Irrigated with Irrigated with Irrigated with Saline Saline Saline -Foul Odor after Cleansing No No No -Bioengineered Tissue No No No -Type of bioengineered Tissue -Expiration Date -Product Lot Number -Percent Used -Saline Lot Number -Bleeding Controlled with Pressure Pressure Pressure -Offloading No No No -Treatment Response Procedure Procedure Procedure Tolerated Well Tolerated Well Tolerated Well Pain Scale: 0-10 Numeric Is Patient Pain Free? Yes Yes Yes 04/22/18 16:03 Wound Center Nurse 2 #3 Left Ellison -Time 16:03 -Correct Patient Yes -Correct Side, Site, Position Yes -Correct Procedure Yes -Procedure Performed Yes -Type of Procedure Debridement -Clinical Debridement Subcutaneous -Post Debridement Size (cm) - Length 1.8 -Post Debridement Size (cm) - Width 1.3 -Post Debridement Size (cm) - Depth 0.1 -Total Square Cm 2.34 -Wound/Ulcer Outcome Not Healed -Ulcer Cleansing Rinsed/ Irrigated with Saline -Foul Odor after Cleansing No -Bioengineered Tissue Yes -Type of bioengineered Tissue EPIFIX -Expiration Date 10/29/22 -Product Lot Number [id number] -Percent Used 100 -Saline Lot Number [id number] -Bleeding Controlled with Pressure -Offloading No -Treatment Response Procedure Tolerated Well Pain Scale: 0-10 Numeric Is Patient Pain Free? Yes Wound debrided: leg anterior Laterality: Left Type of Debridement: Excisional debridement Anesthesia Used: 5% Lidocaine Gel Depth: in the subcutaneous layer Percentage of wound debrided: 100 Instrument Used: #15 blade Tissue Removed: fibrous, devitalized subcutaneous, biofilm, slough Severity: Fat Layer Exposed Amount of bleeding with debridement: Mild Bleeding Controlled with: Pressure Patient tolerated procedure well Assessment/Plan Active Problems Venous insufficiency (chronic) (peripheral) (Chronic) Delayed wound healing (Chronic) Chronic ulcer of left lower extremity with fat layer exposed (Chronic) Assessment: Chronic and recurrent ulcer to the left ellison - stable, no infection. Venous insufficiency left lower extremity. lyphedema. non compliance. delayed healing Plan: I reviewed and discussed her case. The ulcer site was debrided subcutaneously as noted in the clinical panel. Prior authorization was obtained for epi fix and this was applied today after verbal consent according to standard protocol. She did tolerate this very well. This was secured in place with wound veil and Steri-Strips. The indications, planned application, and anticipated healing time and management were discussed. She is amendable to this plan and prior authorization will be completed. This is medically necessary and will optimize her healing time and completion. It is noted she has therapeutically failed other traditional wound healing so far. An additional compression dressing, bilateral CircAid was applied. She demonstrates application knowledge. To continue lymphedema pumps as advised. I discussed with her the opportunity to go to lymphedema clinic after the ulcer site [facility]. She will consider this upon ulcer closure. . To continue nutritional supplementation to optimize healing. To avoid idle standing and sitting to help reduce fluid collection in the lower extremities. She was reassured no signs of infection noted today. To monitor. It is noted that she did have her additional venous surgery completed with Dr. Machado; to follow-up with him as advised. To return to clinic in 1 week at the wound care center or call sooner if questions or concerns. I answered all of her questions today.
--- NOTE | 2018-04-22 17:33 | PN.PCM_ITS ---
(1) Chronic ulcer of left lower extremity with fat layer exposed Status: Chronic Current Visit: Yes Code(s): L97.922 - Non-pressure chronic ulcer of unspecified part of left lower leg with fat layer exposed (2) Venous insufficiency (chronic) (peripheral) Status: Chronic Current Visit: Yes Code(s): I87.2 - Venous insufficiency (chronic) (peripheral) (3) Delayed wound healing Status: Chronic Current Visit: Yes Code(s): T14.8XXD - Other injury of unspecified body region, subsequent encounter Type of Wound Date of Service: 04/22/18 Chief Complaint: Chronic ulcer to the left lower extremity History of Wound: This 62 year old patient returns to the wound healing center for follow up of her chronic ulcer to her left ellison. She did have her venous procedure completed with vascular surgeon, Dr. Machado. She denies pain, fever, chill, nausea, vomiting. She was preapproved for application of advanced wound care product, epi fix and she is amenable for application today. She continues with aggressive compression therapy as advised. Progress of Wound: Improving - Physical Exam Vital Signs Temp Pulse Resp BP 96.2 F L 66 18 137/72 H 04/22/18 15:41 04/22/18 15:41 04/22/18 15:41 04/22/18 15:41 General: Alert, Oriented x3, Cooperative Extremities: No cyanosis, Capillary Refill Less than 3 Seconds, No Calf Tenderness - Negative Italo and Castillo left, Diminished Peripheral Pulses, Edema - Left lower extremity Skin: Ulcer/ Wound - No purulence, erythema, streaking, odor noted. There is a central epithelialization island noted in the wound bed is granular. Wound Measurements and Assessment WC - Nurse 1 - General Ulcer Measurement Start: 04/01/18 16:07 Freq: Status: Active Protocol: Activity Type Activity Date Activity User E-Sign Co-Sign Detail Recorded Client Recorded Date Recorded By Document 04/22/18 15:41 AN [id number] 04/22/18 15:45 AN 04/22/18 15:41 Wound Center Nurse 1 [Ulcer Assessment] #3 Left Ellison -Current Size (cm) - Length 1.8 -Current Size (cm) - Width 1.2 -Current Size (cm) - Depth 0.1 -Total Square Cm 2.16 -Photo Taken No -Epithelialization None Present -Tunneling No -Undermining/Tunneling No -Circular Undermining No -Exudate Amt Medium -Exudate Type Serosanguineous -Wound Margin Distinct, Outline Attached -Granulation Amt Medium (34-66%) -Granulation Quality Red -Slough/Fibrin Yes -Necrosis Amt Medium (34-66%) -Necrotic Tissue Type Adherent Slough -Texture (Chaya-wound Skin Appearance) Assessed Localized Edema -Moisture (Chaya-wound Skin Appearance Assessed ) -Color (Chaya-wound Skin Appearance) Assessed Hemosiderin Staining -Temperature (Chaya-wound Skin No Abnormality Appearance) (Pt Warm) -Tenderness on Palpation (Chaya-wound No Skin Appearance) -Ulcer Cleansing Rinsed/ Irrigated with Saline -Foul Odor after Cleansing No -Anesthetic Used 5% Lidocaine Gel [Edema Assessment] -Left Calf (cm) 50 -Left Ankle (cm) 28.3 WC - Nurse 2 - General Ulcer CM Notes Start: 04/01/18 16:07 Freq: Status: Active Protocol: Activity Type Activity Date Activity User E-Sign Co-Sign Detail Recorded Client Recorded Date Recorded By Document 04/22/18 16:03 JEFF [id number] 04/22/18 16:04 JEFF 04/22/18 16:03 Wound Center Nurse 2 [Procedure/Treatment] #3 Left Ellison -Time 16:03 -Correct Patient Yes -Correct Side, Site, Position Yes -Correct Procedure Yes -Procedure Performed Yes -Type of Procedure Debridement -Clinical Debridement Subcutaneous -Post Debridement Size (cm) - Length 1.8 -Post Debridement Size (cm) - Width 1.3 -Post Debridement Size (cm) - Depth 0.1 -Total Square Cm 2.34 -Wound/Ulcer Outcome Not Healed -Ulcer Cleansing Rinsed/ Irrigated with Saline -Foul Odor after Cleansing No -Bioengineered Tissue Yes -Type of bioengineered Tissue EPIFIX -Expiration Date 10/29/22 -Product Lot Number [id number] -Percent Used 100 -Saline Lot Number [id number] -Bleeding Controlled with Pressure -Offloading No -Treatment Response Procedure Tolerated Well [See Physician Procedure note for Specifics] Pain Scale: 0-10 Numeric [Pain] -Is Patient Pain Free? Yes Musculoskeletal: No Tenderness to Palpation of Joints or Extremities, Muscle Wasting, - - Compartments soft to palpate left lower extremity Neurological: - - Lack of normal epicritic sensation to light touch left lower extremity chaya Ulcer site Psych/Mental Status: Normal Affect, Appropriate Debridement Note Post-Debridement Measurements/Treatment WC - Nurse 2 - General Ulcer CM Notes Start: 04/01/18 16:07 Freq: Status: Active Protocol: Activity Type Activity Date Activity User E-Sign Co-Sign Detail Recorded Client Recorded Date Recorded By Document 04/01/18 16:22 DL [id number] 04/01/18 16:25 DL Document 04/08/18 15:51 JF [id number] 04/08/18 15:52 JF Document 04/15/18 15:52 JF [id number] 04/15/18 15:53 JF Document 04/22/18 16:03 JF [id number] 04/22/18 16:04 JF 04/01/18 04/08/18 04/15/18 16:22 15:51 15:52 Wound Center Nurse 2 #3 Left Ellison -Time 16:25 15:51 15:52 -Correct Patient Yes Yes Yes -Correct Side, Site, Position Yes Yes Yes -Correct Procedure Yes Yes Yes -Procedure Performed Yes Yes Yes -Type of Procedure Debridement Debridement Debridement -Clinical Debridement Subcutaneous Subcutaneous Subcutaneous -Post Debridement Size (cm) - Length 2.5 2.3 2 -Post Debridement Size (cm) - Width 1.2 1.3 1.5 -Post Debridement Size (cm) - Depth 0.1 0.1 0.1 -Total Square Cm 3.00 2.99 3.0 -Wound/Ulcer Outcome Not Healed Not Healed Not Healed -Ulcer Cleansing Rinsed/ Rinsed/ Rinsed/ Irrigated with Irrigated with Irrigated with Saline Saline Saline -Foul Odor after Cleansing No No No -Bioengineered Tissue No No No -Type of bioengineered Tissue -Expiration Date -Product Lot Number -Percent Used -Saline Lot Number -Bleeding Controlled with Pressure Pressure Pressure -Offloading No No No -Treatment Response Procedure Procedure Procedure Tolerated Well Tolerated Well Tolerated Well Pain Scale: 0-10 Numeric Is Patient Pain Free? Yes Yes Yes 04/22/18 16:03 Wound Center Nurse 2 #3 Left Ellison -Time 16:03 -Correct Patient Yes -Correct Side, Site, Position Yes -Correct Procedure Yes -Procedure Performed Yes -Type of Procedure Debridement -Clinical Debridement Subcutaneous -Post Debridement Size (cm) - Length 1.8 -Post Debridement Size (cm) - Width 1.3 -Post Debridement Size (cm) - Depth 0.1 -Total Square Cm 2.34 -Wound/Ulcer Outcome Not Healed -Ulcer Cleansing Rinsed/ Irrigated with Saline -Foul Odor after Cleansing No -Bioengineered Tissue Yes -Type of bioengineered Tissue EPIFIX -Expiration Date 10/29/22 -Product Lot Number [id number] -Percent Used 100 -Saline Lot Number [id number] -Bleeding Controlled with Pressure -Offloading No -Treatment Response Procedure Tolerated Well Pain Scale: 0-10 Numeric Is Patient Pain Free? Yes Wound debrided: leg anterior Laterality: Left Type of Debridement: Excisional debridement Anesthesia Used: 5% Lidocaine Gel Depth: in the subcutaneous layer Percentage of wound debrided: 100 Instrument Used: #15 blade Tissue Removed: fibrous, devitalized subcutaneous, biofilm, slough Severity: Fat Layer Exposed Amount of bleeding with debridement: Mild Bleeding Controlled with: Pressure Patient tolerated procedure well Assessment/Plan Active Problems Venous insufficiency (chronic) (peripheral) (Chronic) Delayed wound healing (Chronic) Chronic ulcer of left lower extremity with fat layer exposed (Chronic) Assessment: Chronic and recurrent ulcer to the left ellison - stable, no infection. Venous insufficiency left lower extremity. lyphedema. non compliance. delayed healing Plan: I reviewed and discussed her case. The ulcer site was debrided subcutaneously as noted in the clinical panel. Prior authorization was obtained for epi fix and this was applied today after verbal consent according to standard protocol. She did tolerate this very well. This was secured in place with wound veil and Steri-Strips. The indications, planned application, and anticipated healing time and management were discussed. She is amendable to this plan and prior authorization will be completed. This is medically necessary and will optimize her healing time and completion. It is noted she has therapeutically failed other traditional wound healing so far. An additional compression dressing, bilateral CircAid was applied. She demonstrates application knowledge. To continue lymphedema pumps as advised. I discussed with her the opportunity to go to lymphedema clinic after the ulcer site has healed [facility]. She will consider this upon ulcer closure. . To continue nutritional supplementation to optimize healing. To avoid idle standing and sitting to help reduce fluid collection in the lower extremities. She was reassured no signs of infection noted today. To monitor. It is noted that she did have her additional venous surgery completed with Dr. Machado; to follow-up with him as advised. To return to clinic in 1 week at the wound care center or call sooner if questions or concerns. I answered all of her questions today.
[2018-04-29 15:40] VITALS: BP 154/100; PULSE 69; RESP 16; TEMP 35.8
--- NOTE | 2018-04-30 12:02 | PCM.WC.PN ---
(1) Chronic ulcer of left lower extremity with fat layer exposed Status: Resolved Current Visit: Yes Code(s): L97.922 - Non-pressure chronic ulcer of unspecified part of left lower leg with fat layer exposed (2) Venous insufficiency (chronic) (peripheral) Status: Chronic Current Visit: Yes Code(s): I87.2 - Venous insufficiency (chronic) (peripheral) (3) Delayed wound healing Status: Chronic Current Visit: Yes Code(s): T14.8XXD - Other injury of unspecified body region, subsequent encounter Type of Wound Date of Service: 04/29/18 Chief Complaint: Chronic ulcer to the left lower extremity History of Wound: This 62 year old patient returns to the wound healing center for follow up of her chronic ulcer to her left ellison. She did have her venous procedure completed with vascular surgeon, Dr. Machado. She denies pain, fever, chill, nausea, vomiting. She did have advanced wound care product, epi fix, applied last week and denies drainage. She continues with aggressive compression therapy as advised. Progress of Wound: Healed - Physical Exam Vital Signs Temp Pulse Resp BP 96.4 F L 69 16 154/100 H 04/29/18 15:40 04/29/18 15:40 04/29/18 15:40 04/29/18 15:40 General: Alert, Oriented x3, Cooperative Extremities: No cyanosis, Capillary Refill Less than 3 Seconds, No Calf Tenderness - Negative Italo and Castillo left, Diminished Peripheral Pulses, Edema Skin: Ulcer/ Wound - No purulence, erythema, streaking, odor, or infection left leg. There is full epithelialization noted to the previous chronic ulceration site and the site is healed. The peripheral skin is hairless, atrophic, and with some hyperpigmentation Wound Measurements and Assessment WC - Nurse 1 - General Ulcer Measurement Start: 04/01/18 16:07 Freq: Status: Active Protocol: Activity Type Activity Date Activity User E-Sign Co-Sign Detail Recorded Client Recorded Date Recorded By Document 04/29/18 15:40 [facility] [id number] 04/29/18 15:46 [facility] 04/29/18 15:40 Wound Center Nurse 1 [Ulcer Assessment] #3 Left Ellison -Combined with other wound No -Current Size (cm) - Length 1.8 -Current Size (cm) - Width 1.1 -Current Size (cm) - Depth 0.1 -Total Square Cm 1.98 -Photo Taken No -Epithelialization Small 1-33% -Tunneling No -Undermining/Tunneling No -Circular Undermining No -Exudate Amt Medium -Exudate Type Serosanguineous -Wound Margin Flat & Intact -Granulation Amt Medium (34-66%) -Granulation Quality Red -Slough/Fibrin Yes -Necrosis Amt Medium (34-66%) -Necrotic Tissue Type Adherent Slough -Texture (Jenny-wound Skin Appearance) Assessed Scarring -Moisture (Jenny-wound Skin Appearance Assessed ) Dry/Scaly -Color (Jenny-wound Skin Appearance) Assessed Hemosiderin Staining -Temperature (Jenny-wound Skin No Abnormality Appearance) (Pt Warm) -Tenderness on Palpation (Jenny-wound No Skin Appearance) -Ulcer Cleansing Rinsed/ Irrigated with Saline -Foul Odor after Cleansing No -Anesthetic Used 5% Lidocaine Gel [Edema Assessment] -Lower Limb Edema Present Yes -Left Calf (cm) 51.7 -Left Ankle (cm) 28 WC - Nurse 2 - General Ulcer CM Notes Start: 04/01/18 16:07 Freq: Status: Active Protocol: Activity Type Activity Date Activity User E-Sign Co-Sign Detail Recorded Client Recorded Date Recorded By Document 04/29/18 15:53 [id number] 04/29/18 15:56 04/29/18 15:53 Wound Center Nurse 2 [Procedure/Treatment] #3 Left Ellison -Correct Patient No -Correct Side, Site, Position No -Correct Procedure No -Procedure Performed No -Post Debridement Size (cm) - Length 0 -Post Debridement Size (cm) - Width 0 -Post Debridement Size (cm) - Depth 0 -Total Square Cm 0 -Wound/Ulcer Outcome Healed- Epithelialized [See Physician Procedure note for Specifics] Pain Scale: 0-10 Numeric [Pain] -Is Patient Pain Free? Yes Musculoskeletal: No Tenderness to Palpation of Joints or Extremities, Muscle Wasting, - - Compartments soft to palpate left lower extremity Neurological: Sensory exam intact to light touch and pain Psych/Mental Status: Normal Affect, Appropriate Debridement Note Post-Debridement Measurements/Treatment WC - Nurse 2 - General Ulcer CM Notes Start: 04/01/18 16:07 Freq: Status: Active Protocol: Activity Type Activity Date Activity User E-Sign Co-Sign Detail Recorded Client Recorded Date Recorded By Document 04/01/18 16:22 DL [id number] 04/01/18 16:25 DL Document 04/08/18 15:51 JF [id number] 04/08/18 15:52 JF Document 04/15/18 15:52 [id number] 04/15/18 15:53 JF Document 04/22/18 16:03 JF [id number] 04/22/18 16:04 JF Document 04/29/18 15:53 [id number] 04/29/18 15:56 JF 04/01/18 04/08/18 04/15/18 16:22 15:51 15:52 Wound Center Nurse 2 #3 Left Ellison -Time 16:25 15:51 15:52 -Correct Patient Yes Yes Yes -Correct Side, Site, Position Yes Yes Yes -Correct Procedure Yes Yes Yes -Procedure Performed Yes Yes Yes -Type of Procedure Debridement Debridement Debridement -Clinical Debridement Subcutaneous Subcutaneous Subcutaneous -Post Debridement Size (cm) - Length 2.5 2.3 2 -Post Debridement Size (cm) - Width 1.2 1.3 1.5 -Post Debridement Size (cm) - Depth 0.1 0.1 0.1 -Total Square Cm 3.00 2.99 3.0 -Wound/Ulcer Outcome Not Healed Not Healed Not Healed -Ulcer Cleansing Rinsed/ Rinsed/ Rinsed/ Irrigated with Irrigated with Irrigated with Saline Saline Saline -Foul Odor after Cleansing No No No -Bioengineered Tissue No No No -Type of bioengineered Tissue -Expiration Date -Product Lot Number -Percent Used -Saline Lot Number -Bleeding Controlled with Pressure Pressure Pressure -Offloading No No No -Treatment Response Procedure Procedure Procedure Tolerated Well Tolerated Well Tolerated Well Pain Scale: 0-10 Numeric Is Patient Pain Free? Yes Yes Yes 04/22/18 04/29/18 16:03 15:53 Wound Center Nurse 2 #3 Left Ellison -Time 16:03 -Correct Patient Yes No -Correct Side, Site, Position Yes No -Correct Procedure Yes No -Procedure Performed Yes No -Type of Procedure Debridement -Clinical Debridement Subcutaneous -Post Debridement Size (cm) - Length 1.8 0 -Post Debridement Size (cm) - Width 1.3 0 -Post Debridement Size (cm) - Depth 0.1 0 -Total Square Cm 2.34 0 -Wound/Ulcer Outcome Not Healed Healed- Epithelialized -Ulcer Cleansing Rinsed/ Irrigated with Saline -Foul Odor after Cleansing No -Bioengineered Tissue Yes -Type of bioengineered Tissue EPIFIX -Expiration Date 10/29/22 -Product Lot Number [id number] -Percent Used 100 -Saline Lot Number [id number] -Bleeding Controlled with Pressure -Offloading No -Treatment Response Procedure Tolerated Well Pain Scale: 0-10 Numeric Is Patient Pain Free? Yes Yes No debridement was completed today - The ulcer site has healed Assessment/Plan Active Problems Venous insufficiency (chronic) (peripheral) (Chronic) Delayed wound healing (Chronic) Assessment: Chronic and recurrent ulcer to the left ellison -healed today. Venous insufficiency left lower extremity. lyphedema. non compliance. delayed healing Plan: I reviewed and discussed her case. The ulcer site was not debrided because it is healed today. She can discontinue formal wound dressing. Do recommend covering the site with a wound veil and gauze to allow continued skin remodeling because it is noted this is very friable and she is at risk for recurrence. She responded well to her wound healing plan and advance wound care product application last week. To continue with long-term compression therapy including CircAid compression wrap. She demonstrates application knowledge. To continue lymphedema pumps as advised. I discussed with her the opportunity to go to lymphedema clinic after the ulcer site has healed [facility]. She will consider this next week. It is okay to DC nutritional supplementation. To avoid idle standing and sitting to help reduce fluid collection in the lower extremities. She was reassured no signs of infection noted today. To monitor. It is noted that she did have her additional venous surgery completed with Dr. Machado; to follow-up with him as advised. To return to clinic in 1 week at the wound care center or call sooner if questions or concerns. I answered all of her questions today.
--- NOTE | 2018-04-30 12:05 | PN.PCM_ITS ---
(1) Chronic ulcer of left lower extremity with fat layer exposed Status: Resolved Current Visit: Yes Code(s): L97.922 - Non-pressure chronic ulcer of unspecified part of left lower leg with fat layer exposed (2) Venous insufficiency (chronic) (peripheral) Status: Chronic Current Visit: Yes Code(s): I87.2 - Venous insufficiency (chronic) (peripheral) (3) Delayed wound healing Status: Chronic Current Visit: Yes Code(s): T14.8XXD - Other injury of unspecified body region, subsequent encounter Type of Wound Date of Service: 04/29/18 Chief Complaint: Chronic ulcer to the left lower extremity History of Wound: This 62 year old patient returns to the wound healing center for follow up of her chronic ulcer to her left ellison. She did have her venous procedure completed with vascular surgeon, Dr. Machado. She denies pain, fever, chill, nausea, vomiting. She did have advanced wound care product, epi fix, applied last week and denies drainage. She continues with aggressive compression therapy as advised. Progress of Wound: Healed - Physical Exam Vital Signs Temp Pulse Resp BP 96.4 F L 69 16 154/100 H 04/29/18 15:40 04/29/18 15:40 04/29/18 15:40 04/29/18 15:40 General: Alert, Oriented x3, Cooperative Extremities: No cyanosis, Capillary Refill Less than 3 Seconds, No Calf Tenderness - Negative Italo and Castillo left, Diminished Peripheral Pulses, Edema Skin: Ulcer/ Wound - No purulence, erythema, streaking, odor, or infection left leg. There is full epithelialization noted to the previous chronic ulceration site and the site is healed. The peripheral skin is hairless, atrophic, and with some hyperpigmentation Wound Measurements and Assessment WC - Nurse 1 - General Ulcer Measurement Start: 04/01/18 16:07 Freq: Status: Active Protocol: Activity Type Activity Date Activity User E-Sign Co-Sign Detail Recorded Client Recorded Date Recorded By Document 04/29/18 15:40 [facility] [id number] 04/29/18 15:46 [facility] 04/29/18 15:40 Wound Center Nurse 1 [Ulcer Assessment] #3 Left Ellison -Combined with other wound No -Current Size (cm) - Length 1.8 -Current Size (cm) - Width 1.1 -Current Size (cm) - Depth 0.1 -Total Square Cm 1.98 -Photo Taken No -Epithelialization Small 1-33% -Tunneling No -Undermining/Tunneling No -Circular Undermining No -Exudate Amt Medium -Exudate Type Serosanguineous -Wound Margin Flat & Intact -Granulation Amt Medium (34-66%) -Granulation Quality Red -Slough/Fibrin Yes -Necrosis Amt Medium (34-66%) -Necrotic Tissue Type Adherent Slough -Texture (Jenny-wound Skin Appearance) Assessed Scarring -Moisture (Jenny-wound Skin Appearance Assessed ) Dry/Scaly -Color (Jenny-wound Skin Appearance) Assessed Hemosiderin Staining -Temperature (Jenny-wound Skin No Abnormality Appearance) (Pt Warm) -Tenderness on Palpation (Jenny-wound No Skin Appearance) -Ulcer Cleansing Rinsed/ Irrigated with Saline -Foul Odor after Cleansing No -Anesthetic Used 5% Lidocaine Gel [Edema Assessment] -Lower Limb Edema Present Yes -Left Calf (cm) 51.7 -Left Ankle (cm) 28 WC - Nurse 2 - General Ulcer CM Notes Start: 04/01/18 16:07 Freq: Status: Active Protocol: Activity Type Activity Date Activity User E-Sign Co-Sign Detail Recorded Client Recorded Date Recorded By Document 04/29/18 15:53 [id number] 04/29/18 15:56 04/29/18 15:53 Wound Center Nurse 2 [Procedure/Treatment] #3 Left Ellison -Correct Patient No -Correct Side, Site, Position No -Correct Procedure No -Procedure Performed No -Post Debridement Size (cm) - Length 0 -Post Debridement Size (cm) - Width 0 -Post Debridement Size (cm) - Depth 0 -Total Square Cm 0 -Wound/Ulcer Outcome Healed- Epithelialized [See Physician Procedure note for Specifics] Pain Scale: 0-10 Numeric [Pain] -Is Patient Pain Free? Yes Musculoskeletal: No Tenderness to Palpation of Joints or Extremities, Muscle Wasting, - - Compartments soft to palpate left lower extremity Neurological: Sensory exam intact to light touch and pain Psych/Mental Status: Normal Affect, Appropriate Debridement Note Post-Debridement Measurements/Treatment WC - Nurse 2 - General Ulcer CM Notes Start: 04/01/18 16:07 Freq: Status: Active Protocol: Activity Type Activity Date Activity User E-Sign Co-Sign Detail Recorded Client Recorded Date Recorded By Document 04/01/18 16:22 DL [id number] 04/01/18 16:25 DL Document 04/08/18 15:51 JF [id number] 04/08/18 15:52 JF Document 04/15/18 15:52 [id number] 04/15/18 15:53 JF Document 04/22/18 16:03 JF [id number] 04/22/18 16:04 JF Document 04/29/18 15:53 [id number] 04/29/18 15:56 JF 04/01/18 04/08/18 04/15/18 16:22 15:51 15:52 Wound Center Nurse 2 #3 Left Ellison -Time 16:25 15:51 15:52 -Correct Patient Yes Yes Yes -Correct Side, Site, Position Yes Yes Yes -Correct Procedure Yes Yes Yes -Procedure Performed Yes Yes Yes -Type of Procedure Debridement Debridement Debridement -Clinical Debridement Subcutaneous Subcutaneous Subcutaneous -Post Debridement Size (cm) - Length 2.5 2.3 2 -Post Debridement Size (cm) - Width 1.2 1.3 1.5 -Post Debridement Size (cm) - Depth 0.1 0.1 0.1 -Total Square Cm 3.00 2.99 3.0 -Wound/Ulcer Outcome Not Healed Not Healed Not Healed -Ulcer Cleansing Rinsed/ Rinsed/ Rinsed/ Irrigated with Irrigated with Irrigated with Saline Saline Saline -Foul Odor after Cleansing No No No -Bioengineered Tissue No No No -Type of bioengineered Tissue -Expiration Date -Product Lot Number -Percent Used -Saline Lot Number -Bleeding Controlled with Pressure Pressure Pressure -Offloading No No No -Treatment Response Procedure Procedure Procedure Tolerated Well Tolerated Well Tolerated Well Pain Scale: 0-10 Numeric Is Patient Pain Free? Yes Yes Yes 04/22/18 04/29/18 16:03 15:53 Wound Center Nurse 2 #3 Left Ellison -Time 16:03 -Correct Patient Yes No -Correct Side, Site, Position Yes No -Correct Procedure Yes No -Procedure Performed Yes No -Type of Procedure Debridement -Clinical Debridement Subcutaneous -Post Debridement Size (cm) - Length 1.8 0 -Post Debridement Size (cm) - Width 1.3 0 -Post Debridement Size (cm) - Depth 0.1 0 -Total Square Cm 2.34 0 -Wound/Ulcer Outcome Not Healed Healed- Epithelialized -Ulcer Cleansing Rinsed/ Irrigated with Saline -Foul Odor after Cleansing No -Bioengineered Tissue Yes -Type of bioengineered Tissue EPIFIX -Expiration Date 10/29/22 -Product Lot Number [id number] -Percent Used 100 -Saline Lot Number [id number] -Bleeding Controlled with Pressure -Offloading No -Treatment Response Procedure Tolerated Well Pain Scale: 0-10 Numeric Is Patient Pain Free? Yes Yes No debridement was completed today - The ulcer site has healed Assessment/Plan Active Problems Venous insufficiency (chronic) (peripheral) (Chronic) Delayed wound healing (Chronic) Assessment: Chronic and recurrent ulcer to the left ellison -healed today. Venous insufficiency left lower extremity. lyphedema. non compliance. delayed healing Plan: I reviewed and discussed her case. The ulcer site was not debrided because it is healed today. She can discontinue formal wound dressing. Do recommend covering the site with a wound veil and gauze to allow continued skin remodeling because it is noted this is very friable and she is at risk for rec urrence. She responded well to her wound healing plan and advance wound care product application last week. To continue with long-term compression therapy including CircAid compression wrap. She demonstrates application knowledge. To continue lymphedema pumps as advised. I discussed with her the opportunity to go to lymphedema clinic after the ulcer site has [facility]. She will consider this next week. It is okay to DC nutritional supplementation. To avoid idle standing and sitting to help reduce fluid collection in the lower extremities. She was reassured no signs of infection noted today. To monitor. It is noted that she did have her additional venous surgery completed with Dr. Machado; to follow-up with him as advised. To return to clinic in 1 week at the wound care center or call sooner if questions or concerns. I answered all of her questions today.
== END 2018-04-30 23:59 ==
LOC: WC 16:00
PROVIDERS: Family Provider Internal Medicine; PCP Internal Medicine; Visit Provider Podiatrist
DX: I87.2 Venous insufficiency (chronic) (peripheral) (principal); L97.822 Non-pressure chronic ulcer of other part of left lower leg with fat layer exposed; Z91.19 Patient's noncompliance with other medical treatment and regimen; I89.0 Lymphedema, not elsewhere classified; R60.0 Localized edema
CPT/HCPCS: 11042; 15271; 99213; Q4186; G0463

== ENCOUNTER 2018-05-27 16:00 | Outpatient (RCR) | payer MEDICAID, SELFPAY ==
[2018-05-01 01:00] VITALS: BP 154/100; PULSE 69; RESP 16; TEMP 35.8
[2018-05-06 15:41] VITALS: BP 125/69; PULSE 58; RESP 18; TEMP 36.2
--- NOTE | 2018-05-08 22:29 | PN.PCM_ITS ---
(1) Chronic ulcer of left lower extremity with fat layer exposed Status: Chronic Current Visit: Yes Code(s): L97.922 - Non-pressure chronic ulcer of unspecified part of left lower leg with fat layer exposed (2) Lymphedema Status: Chronic Current Visit: Yes Code(s): I89.0 - Lymphedema, not elsewhere classified (3) Venous insufficiency (chronic) (peripheral) Status: Chronic Current Visit: Yes Code(s): I87.2 - Venous insufficiency (chronic) (peripheral) (4) Delayed wound healing Status: Chronic Current Visit: Yes Code(s): T14.8XXD - Other injury of unspecified body region, subsequent encounter (5) Left leg pain Status: Acute Current Visit: Yes Code(s): M79.605 - Pain in left leg (6) Delayed wound healing Status: Chronic Current Visit: Yes Code(s): T14.8 - Other injury of unspecified body region Type of Wound Date of Service: 05/06/18 Chief Complaint: Chronic ulcer to the left lower extremity History of Wound: This 62 year old patient returns to the wound healing center for follow up of her chronic ulcer to her left ellison. She did have her venous procedure completed with vascular surgeon, Dr. Machado. She denies pain, fever, chill, nausea, vomiting. She continues with aggressive compression therapy as advised. Her ulcer was healed out last week, she reports return of small drainage; she is concerned that has reopened. She denies redness or odor. Progress of Wound: Returned leg ulcer - Physical Exam Vital Signs Temp Pulse Resp BP 97.1 F L 58 L 18 125/69 H 05/06/18 15:41 05/06/18 15:41 05/06/18 15:41 05/06/18 15:41 General: Alert, Oriented x3, Cooperative Extremities: No cyanosis, Capillary Refill Less than 3 Seconds, No Calf Tenderness - Negative Italo and Castillo sign bilateral, Diminished Peripheral Pulses, Edema Skin: Ulcer/ Wound - No purulence, erythema, streaking, odor, or infection. There is return skin discontinuity to the left leg with no signs of infection or deep tissue exposure noted. The peripheral skin is hairless and atrophic. Wound Measurements and Assessment WC - Nurse 1 - General Ulcer Measurement Start: 05/06/18 15:39 Freq: Status: Active Protocol: Activity Type Activity Date Activity User E-Sign Co-Sign Detail Recorded Client Recorded Date Recorded By Document 05/06/18 15:41 [facility] [id number] 05/06/18 15:49 [facility] 05/06/18 15:41 Wound Center Nurse 1 [Ulcer Assessment] #3 Left Ellison cluster -Combined with other wound No -Current Size (cm) - Length 1.6 -Current Size (cm) - Width 1.7 -Current Size (cm) - Depth 0.1 -Total Square Cm 2.72 -Date of Last Picture (Recall this 05/06/18 field) -Photo Taken Yes -Epithelialization None Present -Tunneling No -Undermining/Tunneling No -Circular Undermining No -Exudate Amt Small -Exudate Type Serosanguineous -Wound Margin Flat & Intact -Granulation Amt Large (67-100%) -Granulation Quality Red -Slough/Fibrin Yes -Necrosis Amt Small (1-33%) -Necrotic Tissue Type Adherent Slough -Structure Exposed None/Limited to Skin Breakdown -Texture (Jenny-wound Skin Appearance) Scarring -Moisture (Jenny-wound Skin Appearance Dry/Scaly ) -Color (Jenny-wound Skin Appearance) Erythema -Temperature (Jenny-wound Skin No Abnormality Appearance) (Pt Warm) -Tenderness on Palpation (Jenny-wound No Skin Appearance) -Ulcer Cleansing Rinsed/ Irrigated with Saline -Foul Odor after Cleansing No -Anesthetic Used 5% Lidocaine Gel [Edema Assessment] -Lower Limb Edema Present Yes -Left Calf (cm) 52.5 -Left Ankle (cm) 29.1 WC - Nurse 2 - General Ulcer CM Notes Start: 05/06/18 15:39 Freq: Status: Active Protocol: Activity Type Activity Date Activity User E-Sign Co-Sign Detail Recorded Client Recorded Date Recorded By Document 05/06/18 16:15 [id number] 05/06/18 16:16 05/06/18 16:15 Wound Center Nurse 2 [Procedure/Treatment] #3 Left Ellison cluster -Time 16:15 -Correct Patient Yes -Correct Side, Site, Position Yes -Correct Procedure Yes -Procedure Performed Yes -Type of Procedure Debridement -Clinical Debridement Subcutaneous -Post Debridement Size (cm) - Length 1.7 -Post Debridement Size (cm) - Width 1.7 -Post Debridement Size (cm) - Depth 0.1 -Total Square Cm 2.89 -Wound/Ulcer Outcome Not Healed -Ulcer Cleansing Rinsed/ Irrigated with Saline -Foul Odor after Cleansing No -Bioengineered Tissue No -Bleeding Controlled with Pressure -Offloading No -Treatment Response Procedure Tolerated Well [See Physician Procedure note for Specifics] Pain Scale: 0-10 Numeric [Pain] -Is Patient Pain Free? Yes Musculoskeletal: No Tenderness to Palpation of Joints or Extremities, Muscle Wasting Neurological: - - Lack of normal epicritic sensation to the ulcer site and adjacent area left leg Psych/Mental Status: Normal Affect, Appropriate Debridement Note Post-Debridement Measurements/Treatment WC - Nurse 2 - General Ulcer CM Notes Start: 05/06/18 15:39 Freq: Status: Active Protocol: Activity Type Activity Date Activity User E-Sign Co-Sign Detail Recorded Client Recorded Date Recorded By Document 05/06/18 16:15 JEFF [id number] 05/06/18 16:16 JEFF 05/06/18 16:15 Wound Center Nurse 2 #3 Left Ellison cluster -Time 16:15 -Correct Patient Yes -Correct Side, Site, Position Yes -Correct Procedure Yes -Procedure Performed Yes -Type of Procedure Debridement -Clinical Debridement Subcutaneous -Post Debridement Size (cm) - Length 1.7 -Post Debridement Size (cm) - Width 1.7 -Post Debridement Size (cm) - Depth 0.1 -Total Square Cm 2.89 -Wound/Ulcer Outcome Not Healed -Ulcer Cleansing Rinsed/ Irrigated with Saline -Foul Odor after Cleansing No -Bioengineered Tissue No -Bleeding Controlled with Pressure -Offloading No -Treatment Response Procedure Tolerated Well Pain Scale: 0-10 Numeric Is Patient Pain Free? Yes Wound debrided: leg Laterality: Left Type of Debridement: Excisional debridement Anesthesia Used: 5% Lidocaine Gel Depth: in the subcutaneous layer Percentage of wound debrided: 100 Instrument Used: #15 blade Tissue Removed: fibrous, devitalized subcutaneous, biofilm, slough Severity: Fat Layer Exposed Amount of bleeding with debridement: Mild Bleeding Controlled with: Pressure Patient tolerated procedure well Assessment/Plan Active Problems Lymphedema (Chronic) Venous insufficiency (chronic) (peripheral) (Chronic) Delayed wound healing (Chronic) Left leg pain (Acute) Delayed wound healing (Chronic) Chronic ulcer of left lower extremity with fat layer exposed (Chronic) Assessment: Chronic and recurrent ulcer to the left ellison -healed today. Venous insufficiency left lower extremity. lyphedema. non compliance. delayed healing Plan: I reviewed and discussed her case. The ulcer site was debrided as noted in the clinical panel; the site has reopened. Advance wound care product, epi fix was applied according to standard protocol after verbal consent was obtained. The purpose and indication was discussed again today. She tolerated this well. This was secured in place with a wound veil and Steri-Strips. To keep clean dry and intact until follow-up visit next week. She responded well to her wound healing plan and advance wound care product application last week. To continue with long-term compression therapy including CircAid compression wrap. To continue lymphedema pumps as advised. I discussed with her the opportunity to go to lymphedema clinic after the ulcer site has [facility]. To resume nutritional supplementation optimize healing. To avoid idle standing and sitting to help reduce fluid collection in the lower extremities. She was reassured no signs of infection noted today. To monitor. It is noted that she did have her additional venous surgery completed with Dr. Machado; to follow-up with him as advised. To return to clinic in 1 week at the wound care center or call sooner if questions or concerns. I answered all of her questions today.
[2018-05-13 15:40] VITALS: BP 135/70; PULSE 66; RESP 18; TEMP 35.7
--- NOTE | 2018-05-13 16:36 | PCM.WC.PN ---
(1) Chronic ulcer of left lower extremity with fat layer exposed Status: Chronic Current Visit: Yes Code(s): L97.922 - Non-pressure chronic ulcer of unspecified part of left lower leg with fat layer exposed (2) Lymphedema Status: Chronic Current Visit: Yes Code(s): I89.0 - Lymphedema, not elsewhere classified (3) Venous insufficiency (chronic) (peripheral) Status: Chronic Current Visit: Yes Code(s): I87.2 - Venous insufficiency (chronic) (peripheral) (4) Delayed wound healing Status: Chronic Current Visit: Yes Code(s): T14.8XXD - Other injury of unspecified body region, subsequent encounter (5) Left leg pain Status: Acute Current Visit: Yes Code(s): M79.605 - Pain in left leg (6) Delayed wound healing Status: Chronic Current Visit: Yes Code(s): T14.8 - Other injury of unspecified body region Type of Wound Date of Service: 05/13/18 Chief Complaint: Chronic ulcer to the left lower extremity History of Wound: This 62 year old patient returns to the wound healing center for follow up of her chronic ulcer to her left ellison. She did have her venous procedure completed with vascular surgeon, Dr. Machado. She denies pain, fever, chill, nausea, vomiting. She continues with aggressive compression therapy as advised. She denies redness or odor. She kept her dressing intact this past week as advised. She continues to use compression pumps. Progress of Wound: Improving - Physical Exam Vital Signs Temp Pulse Resp BP 96.2 F L 66 18 135/70 H 05/13/18 15:40 05/13/18 15:40 05/13/18 15:40 05/13/18 15:40 General: Alert, Oriented x3, Cooperative Extremities: No cyanosis, Capillary Refill Less than 3 Seconds, No Calf Tenderness - Negative Italo and Castillo sign left, Diminished Peripheral Pulses, Edema - Bilateral lower extremities moderate Skin: Ulcer/ Wound - No purulence, erythema, streaking, odor, or infection. Peripheral skin is hairless, atrophic, and some hyperpigmentation Wound Measurements and Assessment WC - Nurse 1 - General Ulcer Measurement Start: 05/06/18 15:39 Freq: Status: Active Protocol: Activity Type Activity Date Activity User E-Sign Co-Sign Detail Recorded Client Recorded Date Recorded By Document 05/13/18 15:40 AN [id number] 05/13/18 15:56 AN 05/13/18 15:40 Wound Center Nurse 1 [Ulcer Assessment] #3 Left Ellison cluster -Current Size (cm) - Length 1.5 -Current Size (cm) - Width 0.8 -Current Size (cm) - Depth 0 -Total Square Cm 1.20 -Exudate Amt Small -Exudate Type Serosanguineous -Wound Margin Flat & Intact -Granulation Amt Large (67-100%) -Granulation Quality Red -Necrosis Amt Small (1-33%) -Texture (Jenny-wound Skin Appearance) Assessed -Moisture (Jenny-wound Skin Appearance Assessed ) -Color (Jenny-wound Skin Appearance) Assessed -Temperature (Jenny-wound Skin No Abnormality Appearance) (Pt Warm) -Tenderness on Palpation (Jenny-wound No Skin Appearance) -Ulcer Cleansing Rinsed/ Irrigated with Saline -Foul Odor after Cleansing No -Anesthetic Used 4% Lidocaine Solution [Edema Assessment] -Left Calf (cm) 52.5 -Left Ankle (cm) 28.5 WC - Nurse 2 - General Ulcer CM Notes Start: 05/06/18 15:39 Freq: Status: Active Protocol: Activity Type Activity Date Activity User E-Sign Co-Sign Detail Recorded Client Recorded Date Recorded By Document 05/13/18 16:10 JEFF [id number] 05/13/18 16:11 05/13/18 16:10 Wound Center Nurse 2 [Procedure/Treatment] #3 Left Ellison cluster -Time 16:11 -Correct Patient Yes -Correct Side, Site, Position Yes -Correct Procedure Yes -Procedure Performed Yes -Type of Procedure Debridement -Clinical Debridement Subcutaneous -Post Debridement Size (cm) - Length 0.1 -Post Debridement Size (cm) - Width 0.1 -Post Debridement Size (cm) - Depth 0.1 -Total Square Cm 0.01 -Wound/Ulcer Outcome Not Healed -Ulcer Cleansing Rinsed/ Irrigated with Saline -Foul Odor after Cleansing No -Bioengineered Tissue No -Bleeding Controlled with Pressure -Offloading No -Treatment Response Procedure Tolerated Well [See Physician Procedure note for Specifics] Pain Scale: 0-10 Numeric [Pain] -Is Patient Pain Free? Yes Musculoskeletal: No Tenderness to Palpation of Joints or Extremities, Muscle Wasting Neurological: Sensory exam intact to light touch and pain Psych/Mental Status: Normal Affect, Appropriate Debridement Note Post-Debridement Measurements/Treatment WC - Nurse 2 - General Ulcer CM Notes Start: 05/06/18 15:39 Freq: Status: Active Protocol: Activity Type Activity Date Activity User E-Sign Co-Sign Detail Recorded Client Recorded Date Recorded By Document 05/06/18 16:15 [id number] 05/06/18 16:16 Document 05/13/18 16:10 [id number] 05/13/18 16:11 05/06/18 05/13/18 16:15 16:10 Wound Center Nurse 2 #3 Left Ellison cluster -Time 16:15 16:11 -Correct Patient Yes Yes -Correct Side, Site, Position Yes Yes -Correct Procedure Yes Yes -Procedure Performed Yes Yes -Type of Procedure Debridement Debridement -Clinical Debridement Subcutaneous Subcutaneous -Post Debridement Size (cm) - Length 1.7 0.1 -Post Debridement Size (cm) - Width 1.7 0.1 -Post Debridement Size (cm) - Depth 0.1 0.1 -Total Square Cm 2.89 0.01 -Wound/Ulcer Outcome Not Healed Not Healed -Ulcer Cleansing Rinsed/ Rinsed/ Irrigated with Irrigated with Saline Saline -Foul Odor after Cleansing No No -Bioengineered Tissue No No -Bleeding Controlled with Pressure Pressure -Offloading No No -Treatment Response Procedure Procedure Tolerated Well Tolerated Well Pain Scale: 0-10 Numeric Is Patient Pain Free? Yes Yes Wound debrided: leg Laterality: Left Type of Debridement: Excisional debridement Anesthesia Used: 5% Lidocaine Gel Depth: in the subcutaneous layer Percentage of wound debrided: 100 Instrument Used: #15 blade Tissue Removed: fibrous, devitalized subcutaneous, biofilm, slough Severity: Fat Layer Exposed Amount of bleeding with debridement: Mild Bleeding Controlled with: Pressure Patient tolerated procedure well Assessment/Plan Active Problems Lymphedema (Chronic) Venous insufficiency (chronic) (peripheral) (Chronic) Delayed wound healing (Chronic) Left leg pain (Acute) Delayed wound healing (Chronic) Chronic ulcer of left lower extremity with fat layer exposed (Chronic) Assessment: Chronic and recurrent ulcer to the left ellison -return. Venous insufficiency left lower extremity. lyphedema. non compliance. delayed healing Plan: I reviewed and discussed her case. The ulcer site was debrided as noted in the clinical panel; the site has reopened. [place] was applied: To change every other day. To continue with long-term compression therapy including CircAid compression wrap. To continue lymphedema pumps as advised. I discussed with her the opportunity to go to lymphedema clinic after the ulcer site has healed [facility]. To resume nutritional supplementation optimize healing. To avoid idle standing and sitting to help reduce fluid collection in the lower extremities. She was reassured no signs of infection noted today. To monitor. It is noted that she did have her additional venous surgery completed with Dr. Machado; to follow-up with him as advised. To return to clinic in 1 week at the wound care center or call sooner if questions or concerns. I answered all of her questions today.
[2018-05-20 15:43] VITALS: BP 144/80; PULSE 71; RESP 18; TEMP 36.5
--- NOTE | 2018-05-20 16:42 | PN.PCM_ITS ---
(1) Chronic ulcer of left lower extremity with fat layer exposed Status: Chronic Current Visit: Yes Code(s): L97.922 - Non-pressure chronic ulcer of unspecified part of left lower leg with fat layer exposed (2) Lymphedema Status: Chronic Current Visit: Yes Code(s): I89.0 - Lymphedema, not elsewhere classified (3) Venous insufficiency (chronic) (peripheral) Status: Chronic Current Visit: Yes Code(s): I87.2 - Venous insufficiency (chronic) (peripheral) (4) Delayed wound healing Status: Chronic Current Visit: Yes Code(s): T14.8XXD - Other injury of unspecified body region, subsequent encounter Type of Wound Date of Service: 05/20/18 Chief Complaint: Chronic ulcer to the left lower extremity History of Wound: This 62 year old patient returns to the wound healing center for follow up of her chronic ulcer to her left ellison. She did have her venous procedure completed with vascular surgeon, Dr. Machado. She denies pain, fever, chill, nausea, vomiting. She continues with aggressive compression therapy as advised. She denies redness or odor. She kept her dressing intact this past week as advised. She continues to use compression pumps. Progress of Wound: stable - Physical Exam Vital Signs Temp Pulse Resp BP 97.7 F L 71 18 144/80 H 05/20/18 15:43 05/20/18 15:43 05/20/18 15:43 05/20/18 15:43 General: Alert, Oriented x3, Cooperative Extremities: No cyanosis, Capillary Refill Less than 3 Seconds, No Calf Tenderness, Diminished Peripheral Pulses, Edema Skin: Ulcer/ Wound - No purulence, erythema, streaking, odor, or infection Wound Measurements and Assessment WC - Nurse 1 - General Ulcer Measurement Start: 05/06/18 15:39 Freq: Status: Active Protocol: Activity Type Activity Date Activity User E-Sign Co-Sign Detail Recorded Client Recorded Date Recorded By Document 05/20/18 15:43 DL [id number] 05/20/18 15:49 DL 05/20/18 15:43 Wound Center Nurse 1 [Ulcer Assessment] #3 Left Ellison cluster -Current Size (cm) - Length 2.5 -Current Size (cm) - Width 1.1 -Current Size (cm) - Depth 0.1 -Total Square Cm 2.75 -Photo Taken No -Exudate Amt Small -Exudate Type Serosanguineous -Wound Margin Distinct, Outline Attached -Granulation Amt Large (67-100%) -Granulation Quality Red -Necrosis Amt Small (1-33%) -Necrotic Tissue Type Adherent Slough -Structure Exposed N/A -Texture (Chaya-wound Skin Appearance) Scarring -Moisture (Chaya-wound Skin Appearance Dry/Scaly ) -Color (Chaya-wound Skin Appearance) Rubor -Temperature (Chaya-wound Skin No Abnormality Appearance) (Pt Warm) -Tenderness on Palpation (Chaya-wound No Skin Appearance) -Ulcer Cleansing Rinsed/ Irrigated with Saline -Foul Odor after Cleansing No -Anesthetic Used 4% Lidocaine Solution [Edema Assessment] -Left Calf (cm) 48 -Left Ankle (cm) 27 WC - Nurse 2 - General Ulcer CM Notes Start: 05/06/18 15:39 Freq: Status: Active Protocol: Activity Type Activity Date Activity User E-Sign Co-Sign Detail Recorded Client Recorded Date Recorded By Document 05/20/18 16:39 [id number] 05/20/18 16:40 05/20/18 16:39 Wound Center Nurse 2 [Procedure/Treatment] #3 Left Ellison cluster -Time 16:39 -Correct Patient Yes -Correct Side, Site, Position Yes -Correct Procedure Yes -Procedure Performed Yes -Type of Procedure Debridement -Clinical Debridement Subcutaneous -Post Debridement Size (cm) - Length 2.5 -Post Debridement Size (cm) - Width 1.2 -Post Debridement Size (cm) - Depth 0.1 -Total Square Cm 3.00 -Wound/Ulcer Outcome Not Healed -Ulcer Cleansing Rinsed/ Irrigated with Saline -Foul Odor after Cleansing No -Bioengineered Tissue Yes -Type of bioengineered Tissue EPIFIX -Expiration Date 10/29/22 -Product Lot Number [id number] -Percent Used 100 -Saline Lot Number [id number] -Bleeding Controlled with Pressure -Offloading No -Treatment Response Procedure Tolerated Well [See Physician Procedure note for Specifics] Pain Scale: 0-10 Numeric [Pain] -Is Patient Pain Free? Yes Musculoskeletal: No Tenderness to Palpation of Joints or Extremities, Muscle Wa sting Neurological: - - Normal epicritic sensation light touch chaya Ulcer site Psych/Mental Status: Normal Affect, Appropriate Debridement Note Post-Debridement Measurements/Treatment WC - Nurse 2 - General Ulcer CM Notes Start: 05/06/18 15:39 Freq: Status: Active Protocol: Activity Type Activity Date Activity User E-Sign Co-Sign Detail Recorded Client Recorded Date Recorded By Document 05/06/18 16:15 [id number] 05/06/18 16:16 Document 05/13/18 16:10 [id number] 05/13/18 16:11 Document 05/20/18 16:39 [id number] 05/20/18 16:40 05/06/18 05/13/18 05/20/18 16:15 16:10 16:39 Wound Center Nurse 2 #3 Left Ellison cluster -Time 16:15 16:11 16:39 -Correct Patient Yes Yes Yes -Correct Side, Site, Position Yes Yes Yes -Correct Procedure Yes Yes Yes -Procedure Performed Yes Yes Yes -Type of Procedure Debridement Debridement Debridement -Clinical Debridement Subcutaneous Subcutaneous Subcutaneous -Post Debridement Size (cm) - Length 1.7 0.1 2.5 -Post Debridement Size (cm) - Width 1.7 0.1 1.2 -Post Debridement Size (cm) - Depth 0.1 0.1 0.1 -Total Square Cm 2.89 0.01 3.00 -Wound/Ulcer Outcome Not Healed Not Healed Not Healed -Ulcer Cleansing Rinsed/ Rinsed/ Rinsed/ Irrigated with Irrigated with Irrigated with Saline Saline Saline -Foul Odor after Cleansing No No No -Bioengineered Tissue No No Yes -Type of bioengineered Tissue EPIFIX -Expiration Date 10/29/22 -Product Lot Number [id number] -Percent Used 100 -Saline Lot Number [id number] -Bleeding Controlled with Pressure Pressure Pressure -Offloading No No No -Treatment Response Procedure Procedure Procedure Tolerated Well Tolerated Well Tolerated Well Pain Scale: 0-10 Numeric Is Patient Pain Free? Yes Yes Yes Wound debrided: leg Laterality: Left Type of Debridement: Excisional debridement Anesthesia Used: 5% Lidocaine Gel Depth: in the subcutaneous layer Percentage of wound debrided: 100 Instrument Used: #15 blade Tissue Removed: fibrous, devitalized subcutaneous, biofilm, slough Severity: Fat Layer Exposed Amount of bleeding with debridement: Mild Bleeding Controlled with: Pressure Patient tolerated procedure well Assessment/Plan Active Problems Lymphedema (Chronic) Venous insufficiency (chronic) (peripheral) (Chronic) Delayed wound healing (Chronic) Left leg pain (Acute) Delayed wound healing (Chronic) Chronic ulcer of left lower extremity with fat layer exposed (Chronic) Assessment: Chronic and recurrent ulcer to the left ellison -returned. Venous insufficiency left lower extremity. lyphedema. non compliance. delayed healing Plan: I reviewed and discussed her case. The ulcer site was debrided as noted in the clinical panel; the site has reopened. Advance wound care product application, epi fix, was recommended today. The purpose, indication, planned procedures, and anticipated healing time management were discussed. She is verbally consenting to this today and this applied according to standard protocol. This was moistened with saline, and secured in place with a wound veil and Steri-Strips. She tolerated this well. To keep this clean, dry, and intact until follow-up next week. To continue with long-term compression therapy including CircAid compression wrap. To continue lymphedema pumps as advised. I discussed with her the opportunity to go to lymphedema clinic after the ulcer site has healed [facility]. To resume nutritional supplementation optimize healing. To avoid idle standing and sitting to help reduce fluid collection in the lower extremities. She was reassured no signs of infection noted today. To monitor. It is noted that she did have her additional venous surgery completed with Dr. Machado; to follow-up with him as advised. To return to clinic in 1 week at the wound care center or call sooner if questions or concerns. I answered all of her questions today.
[2018-05-27 15:45] VITALS: BP 141/82; PULSE 67; RESP 20; TEMP 36.6
--- NOTE | 2018-05-27 17:06 | PN.PCM_ITS ---
(1) Chronic ulcer of left lower extremity with fat layer exposed Status: Resolved Current Visit: Yes Code(s): L97.922 - Non-pressure chronic ulcer of unspecified part of left lower leg with fat layer exposed (2) Lymphedema Status: Chronic Current Visit: Yes Code(s): I89.0 - Lymphedema, not elsewhere classified (3) Venous insufficiency (chronic) (peripheral) Status: Chronic Current Visit: Yes Code(s): I87.2 - Venous insufficiency (chronic) (peripheral) (4) Delayed wound healing Status: Chronic Current Visit: Yes Code(s): T14.8XXD - Other injury of unspecified body region, subsequent encounter Type of Wound Date of Service: 05/27/18 Chief Complaint: Chronic ulcer to the left lower extremity History of Wound: This 62 year old patient returns to the wound healing center for follow up of her chronic ulcer to her left ellison. She did have her venous procedure completed with vascular surgeon, Dr. Machado. She denies pain, fever, chill, nausea, vomiting. She continues with aggressive compression therapy as advised. She denies redness or odor. She kept her dressing intact this past week as advised. She continues to use compression pumps. Progress of Wound: Healed - Physical Exam Vital Signs Temp Pulse Resp BP 98 F 67 20 H 141/82 H 05/27/18 15:45 05/27/18 15:45 05/27/18 15:45 05/27/18 15:45 General: Alert, Oriented x3, Cooperative Extremities: No cyanosis, Capillary Refill Less than 3 Seconds, No Calf Tenderness - Negative Italo and Castillo left, Diminished Peripheral Pulses, Edema Skin: Ulcer/ Wound - No purulence, erythema, streaking, odor, infection, necrosis, or exposed deep tissue left leg. There is full epithelialization and the ulcer site has healed. The skin is very atrophic and hairless to this limb Wound Measurements and Assessment WC - Nurse 1 - General Ulcer Measurement Start: 05/06/18 15:39 Freq: Status: Active Protocol: Activity Type Activity Date Activity User E-Sign Co-Sign Detail Recorded Client Recorded Date Recorded By Document 05/27/18 15:45 DL [id number] 05/27/18 15:54 DL 05/27/18 15:45 Wound Center Nurse 1 [Ulcer Assessment] #3 Left Ellison cluster -Current Size (cm) - Length 0.1 -Current Size (cm) - Width 0.1 -Current Size (cm) - Depth 0.1 -Total Square Cm 0.01 -Photo Taken No -Exudate Amt Small -Exudate Type Serosanguineous -Wound Margin Flat & Intact -Granulation Amt Large (67-100%) -Granulation Quality [place] -Necrosis Amt None Present (0 %) -Structure Exposed N/A -Texture (Jenny-wound Skin Appearance) Excoriation Localized Edema Scarring -Moisture (Jenny-wound Skin Appearance No Abnormality ) -Color (Jenny-wound Skin Appearance) Rubor -Temperature (Jenny-wound Skin No Abnormality Appearance) (Pt Warm) -Tenderness on Palpation (Jenny-wound No Skin Appearance) -Ulcer Cleansing Rinsed/ Irrigated with Saline -Foul Odor after Cleansing No -Anesthetic Used 4% Lidocaine Solution [Edema Assessment] -Left Calf (cm) 48.5 -Left Ankle (cm) 26.5 Musculoskeletal: No Tenderness to Palpation of Joints or Extremities, Muscle Wasting, - - Prior compartments soft and no fluctuance or bogginess noted left lower extremity Neurological: Sensory exam intact to light touch and pain Psych/Mental Status: Normal Affect, Appropriate Debridement Note Post-Debridement Measurements/Treatment WC - Nurse 2 - General Ulcer CM Notes Start: 05/06/18 15:39 Freq: Status: Active Protocol: Activity Type Activity Date Activity User E-Sign Co-Sign Detail Recorded Client Recorded Date Recorded By Document 05/06/18 16:15 [id number] 05/06/18 16:16 Document 05/13/18 16:10 [id number] 05/13/18 16:11 Document 05/20/18 16:39 [id number] 05/20/18 16:40 05/06/18 05/13/18 05/20/18 16:15 16:10 16:39 Wound Center Nurse 2 #3 Left Ellison cluster -Time 16:15 16:11 16:39 -Correct Patient Yes Yes Yes -Correct Side, Site, Position Yes Yes Yes -Correct Procedure Yes Yes Yes -Procedure Performed Yes Yes Yes -Type of Procedure Debridement Debridement Debridement -Clinical Debridement Subcutaneous Subcutaneous Subcutaneous -Post Debridement Size (cm) - Length 1.7 0.1 2.5 -Post Debridement Size (cm) - Width 1.7 0.1 1.2 -Post Debridement Size (cm) - Depth 0.1 0.1 0.1 -Total Square Cm 2.89 0.01 3.00 -Wound/Ulcer Outcome Not Healed Not Healed Not Healed -Ulcer Cleansing Rinsed/ Rinsed/ Rinsed/ Irrigated with Irrigated with Irrigated with Saline Saline Saline -Foul Odor after Cleansing No No No -Bioengineered Tissue No No Yes -Type of bioengineered Tissue EPIFIX -Expiration Date 10/29/22 -Product Lot Number [id number] -Percent Used 100 -Saline Lot Number [id number] -Bleeding Controlled with Pressure Pressure Pressure -Offloading No No No -Treatment Response Procedure Procedure Procedure Tolerated Well Tolerated Well Tolerated Well Pain Scale: 0-10 Numeric Is Patient Pain Free? Yes Yes Yes No debridement was completed today - the ulcer site healed Assessment/Plan Active Problems Lymphedema (Chronic) Venous insufficiency (chronic) (peripheral) (Chronic) Delayed wound healing (Chronic) Left leg pain (Acute) Delayed wound healing (Chronic) Assessment: Chronic and recurrent ulcer to the left ellison -healed today. Venous insufficiency left lower extremity. lyphedema. non compliance. delayed healing Plan: I reviewed and discussed her case. The ulcer site was not debrided because of wound healing. To discontinue nutritional supplementation dressing care. To monitor this close very cautiously and to prevent tight compression dressing application to avoid reopening this friable site. An abdominal pad was applied for additional protection. She is reassured there are no signs of infection. Her previous venous intervention with Dr. Machado is noted and appreciated. To return to clinic in 2 weeks at the wound care center or call sooner if questions or concerns to confirm this site remains healed.. I answered all of her questions today.
== END 2018-05-28 23:59 ==
LOC: WC 16:00
PROVIDERS: Family Provider Internal Medicine; PCP Internal Medicine; Visit Provider Podiatrist
DX: I87.2 Venous insufficiency (chronic) (peripheral) (principal); L97.822 Non-pressure chronic ulcer of other part of left lower leg with fat layer exposed; I89.0 Lymphedema, not elsewhere classified; Z91.19 Patient's noncompliance with other medical treatment and regimen
CPT/HCPCS: 11042; 15271; 99213; Q4186; G0463

== ENCOUNTER 2018-06-24 16:00 | Outpatient (RCR) | payer MEDICAID, SELFPAY ==
[2018-05-29 00:49] VITALS: BP 141/82; PULSE 67; RESP 20; TEMP 36.6
[2018-06-10 15:52] VITALS: BP 166/72; PULSE 77; RESP 18; TEMP 35.5
--- NOTE | 2018-06-10 16:37 | PCM.WC.PN ---
(1) Chronic ulcer of left lower extremity with fat layer exposed Status: Resolved Current Visit: Yes Code(s): L97.922 - Non-pressure chronic ulcer of unspecified part of left lower leg with fat layer exposed (2) Lymphedema Status: Chronic Current Visit: Yes Code(s): I89.0 - Lymphedema, not elsewhere classified (3) Venous insufficiency (chronic) (peripheral) Status: Chronic Current Visit: Yes Code(s): I87.2 - Venous insufficiency (chronic) (peripheral) (4) Delayed wound healing Status: Chronic Current Visit: Yes Code(s): T14.8XXD - Other injury of unspecified body region, subsequent encounter (5) Venous insufficiency Status: Chronic Current Visit: Yes Code(s): I87.2 - Venous insufficiency (chronic) (peripheral) (6) Malnutrition Status: Chronic Current Visit: Yes Code(s): E46 - Unspecified protein-calorie malnutrition Type of Wound Date of Service: 06/10/18 Chief Complaint: Chronic ulcer to the left lower extremity History of Wound: This 62 year old patient returns to the wound healing center for follow up of her chronic ulcer to her left ellison. She relates this is reopen this past week. She did have her venous procedure completed with vascular surgeon, Dr. Machado. She denies pain, fever, chill, nausea, vomiting. She continues with aggressive compression therapy as advised. She denies redness or odor. Progress of Wound: Reopened - Physical Exam Vital Signs Temp Pulse Resp BP 96 F L 77 18 166/72 H 06/10/18 15:52 06/10/18 15:52 06/10/18 15:52 06/10/18 15:52 General: Alert, Oriented x3, Cooperative Extremities: No cyanosis, Capillary Refill Less than 3 Seconds, No Calf Tenderness - Negative Italo and Castillo, Diminished Peripheral Pulses, Edema Skin: Ulcer/ Wound - Returned skin discontinuity to anterior ellison with no erythema, streaking, odor, purulence, or infection. The peripheral skin is hairless and atrophic Wound Measurements and Assessment WC - Nurse 1 - General Ulcer Measurement Start: 06/10/18 15:52 Freq: Status: Active Protocol: Activity Type Activity Date Activity User E-Sign Co-Sign Detail Recorded Client Recorded Date Recorded By Document 06/10/18 15:52 [facility] [id number] 06/10/18 15:57 [facility] 06/10/18 15:52 Wound Center Nurse 1 [Ulcer Assessment] #3 Left Ellison cluster -Combined with other wound No -Current Size (cm) - Length 2 -Current Size (cm) - Width 1.5 -Current Size (cm) - Depth 0.1 -Total Square Cm 3.0 -Date of Last Picture (Recall this 06/10/18 field) -Photo Taken Yes -Epithelialization None Present -Tunneling No -Undermining/Tunneling No -Circular Undermining No -Exudate Amt Small -Exudate Type Serosanguineous -Wound Margin Flat & Intact -Granulation Amt Medium (34-66%) -Granulation Quality Red -Slough/Fibrin Yes -Necrosis Amt Medium (34-66%) -Necrotic Tissue Type Adherent Slough -Texture (Chaya-wound Skin Appearance) Fluctuance Scarring -Moisture (Chaya-wound Skin Appearance Dry/Scaly ) -Color (Chaya-wound Skin Appearance) Erythema Hemosiderin Staining -Temperature (Chaya-wound Skin No Abnormality Appearance) (Pt Warm) -Tenderness on Palpation (Chaya-wound No Skin Appearance) -Ulcer Cleansing Rinsed/ Irrigated with Saline -Foul Odor after Cleansing No -Anesthetic Used 5% Lidocaine Gel [Edema Assessment] -Lower Limb Edema Present Yes -Left Calf (cm) 48.5 -Left Ankle (cm) 28.5 WC - Nurse 2 - General Ulcer CM Notes Start: 06/10/18 15:52 Freq: Status: Active Protocol: Activity Type Activity Date Activity User E-Sign Co-Sign Detail Recorded Client Recorded Date Recorded By Document 06/10/18 16:28 [id number] 06/10/18 16:34 AN 06/10/18 16:28 Wound Center Nurse 2 [Procedure/Treatment] #3 Left Ellison cluster -Time 16:31 -Correct Patient Yes -Correct Side, Site, Position Yes -Correct Procedure Yes -Procedure Performed Yes -Type of Procedure Debridement -Clinical Debridement Subcutaneous -Post Debridement Size (cm) - Length 2.1 -Post Debridement Size (cm) - Width 1.5 -Post Debridement Size (cm) - Depth 0.1 -Total Square Cm 3.15 -Wound/Ulcer Outcome Not Healed -Ulcer Cleansing Rinsed/ Irrigated with Saline -Foul Odor after Cleansing No -Bioengineered Tissue No -Bleeding Controlled with Pressure -Offloading No -Treatment Response Procedure Tolerated Well [See Physician Procedure note for Specifics] Pain Scale: 0-10 Numeric [Pain] -Is Patient Pain Free? Yes Musculoskeletal: No Tenderness to Palpation of Joints or Extremities, Muscle Wasting Neurological: - - Lack of epicritic sensation chaya-ulcer site Psych/Mental Status: Normal Affect, Appropriate Debridement Note Post-Debridement Measurements/Treatment WC - Nurse 2 - General Ulcer CM Notes Start: 06/10/18 15:52 Freq: Status: Active Protocol: Activity Type Activity Date Activity User E-Sign Co-Sign Detail Recorded Client Recorded Date Recorded By Document 06/10/18 16:28 AN [id number] 06/10/18 16:34 AN 06/10/18 16:28 Wound Center Nurse 2 #3 Left Ellison cluster -Time 16:31 -Correct Patient Yes -Correct Side, Site, Position Yes -Correct Procedure Yes -Procedure Performed Yes -Type of Procedure Debridement -Clinical Debridement Subcutaneous -Post Debridement Size (cm) - Length 2.1 -Post Debridement Size (cm) - Width 1.5 -Post Debridement Size (cm) - Depth 0.1 -Total Square Cm 3.15 -Wound/Ulcer Outcome Not Healed -Ulcer Cleansing Rinsed/ Irrigated with Saline -Foul Odor after Cleansing No -Bioengineered Tissue No -Bleeding Controlled with Pressure -Offloading No -Treatment Response Procedure Tolerated Well Pain Scale: 0-10 Numeric Is Patient Pain Free? Yes Wound debrided: leg Laterality: Left Type of Debridement: Excisional debridement Anesthesia Used: 5% Lidocaine Gel Depth: in the subcutaneous layer Percentage of wound debrided: 100 Instrument Used: #15 blade Tissue Removed: fibrous, devitalized subcutaneous, biofilm, slough Severity: Fat Layer Exposed Amount of bleeding with debridement: Mild Bleeding Controlled with: Pressure Patient tolerated procedure well Assessment/Plan Active Problems Lymphedema (Chronic) Venous insufficiency (chronic) (peripheral) (Chronic) Delayed wound healing (Chronic) Venous insufficiency (Chronic) Malnutrition (Chronic) Assessment: Chronic and recurrent ulcer to the left ellison -healed today. Venous insufficiency left lower extremity. lyphedema. non compliance. delayed healing Plan: I reviewed and discussed her case. The ulcer site was debrided today as noted in the clinical panel. To resume nutritional supplementation. She is reassured there are no signs of infection. Her previous venous intervention with Dr. Machado is noted and appreciated. To resume daily dressing with hydrogel or Aquacel Ag. To resume periodic elevation on a routine basis throughout the day. I recommend a nutrition referral to optimize wound healing and reduce edema and weight. She is adamant she does not want to attend. I explained the purpose and the benefits of this and she will consider this over the next week. To return to clinic in 1 week at the wound care center or call sooner if questions or concerns. I answered all of her questions today.
[2018-06-17 15:50] VITALS: BP 126/72; PULSE 77; RESP 16; TEMP 35.9
--- NOTE | 2018-06-17 16:41 | PN.PCM_ITS ---
(1) Chronic ulcer of left lower extremity with fat layer exposed Status: Chronic Code(s): L97.922 - Non-pressure chronic ulcer of unspecified part of left lower leg with fat layer exposed (2) Lymphedema Status: Chronic Code(s): I89.0 - Lymphedema, not elsewhere classified (3) Venous insufficiency (chronic) (peripheral) Status: Chronic Code(s): I87.2 - Venous insufficiency (chronic) (peripheral) (4) Delayed wound healing Status: Chronic Code(s): T14.8XXD - Other injury of unspecified body region, subsequent encounter (5) Malnutrition Status: Chronic Code(s): E46 - Unspecified protein-calorie malnutrition Type of Wound Date of Service: 06/17/18 Chief Complaint: Chronic ulcer to the left lower extremity History of Wound: This 62 year old patient returns to the wound healing center for follow up of her chronic ulcer to her left ellison. She did have her venous procedure completed with vascular surgeon, Dr. Machado. She denies pain, fever, chill, nausea, vomiting. She continues with aggressive compression therapy as advised. She denies redness or odor. Progress of Wound: Stable - Physical Exam Vital Signs Temp Pulse Resp BP 96.6 F L 77 16 126/72 H 06/17/18 15:50 06/17/18 15:50 06/17/18 15:50 06/17/18 15:50 General: Alert, Oriented x3, Cooperative HEENT: Atraumatic Extremities: No cyanosis, Capillary Refill Less than 3 Seconds, No Calf Tenderness - Negative Italo and Castillo sign bilateral, Diminished Peripheral Pulses, Edema - Bilateral lower extremities stable Skin: Ulcer/ Wound - No purulence, erythema, streaking, odor, or infection. Her peripheral skin is hairless and atrophic with minor hyperpigmentation Wound Measurements and Assessment WC - Nurse 1 - General Ulcer Measurement Start: 06/10/18 15:52 Freq: Status: Active Protocol: Activity Type Activity Date Activity User E-Sign Co-Sign Detail Recorded Client Recorded Date Recorded By Document 06/17/18 15:50 BMF [id number] 06/17/18 15:56 BMF 06/17/18 15:50 Wound Center Nurse 1 [Ulcer Assessment] #3 Left Ellison cluster -Combined with other wound No -Current Size (cm) - Length 2.3 -Current Size (cm) - Width 1.6 -Current Size (cm) - Depth 0.1 -Total Square Cm 3.68 -Photo Taken No -Epithelialization Small 1-33% -Tunneling No -Undermining/Tunneling No -Circular Undermining No -Exudate Amt Small -Exudate Type Serosanguineous -Wound Margin Flat & Intact -Granulation Amt Large (67-100%) -Granulation Quality Red -Slough/Fibrin Yes -Necrosis Amt Small (1-33%) -Necrotic Tissue Type Adherent Slough -Texture (Jenny-wound Skin Appearance) Assessed Scarring -Moisture (Jenny-wound Skin Appearance Assessed ) Dry/Scaly -Color (Jenny-wound Skin Appearance) Assessed -Temperature (Jenny-wound Skin No Abnormality Appearance) (Pt Warm) -Tenderness on Palpation (Jenny-wound No Skin Appearance) -Ulcer Cleansing Rinsed/ Irrigated with Saline -Foul Odor after Cleansing No -Anesthetic Used 5% Lidocaine Gel [Edema Assessment] -Lower Limb Edema Present Yes -Left Calf (cm) 52.1 -Left Ankle (cm) 28 WC - Nurse 2 - General Ulcer CM Notes Start: 06/10/18 15:52 Freq: Status: Active Protocol: Activity Type Activity Date Activity User E-Sign Co-Sign Detail Recorded Client Recorded Date Recorded By Document 06/17/18 16:11 JEFF [id number] 06/17/18 16:14 06/17/18 16:11 Wound Center Nurse 2 [Procedure/Treatment] #3 Left Ellison cluster -Time 16:11 -Correct Patient Yes -Correct Side, Site, Position Yes -Correct Procedure Yes -Procedure Performed Yes -Type of Procedure Debridement -Clinical Debridement Subcutaneous -Post Debridement Size (cm) - Length 2.3 -Post Debridement Size (cm) - Width 1.7 -Post Debridement Size (cm) - Depth 0.1 -Total Square Cm 3.91 -Wound/Ulcer Outcome Not Healed -Ulcer Cleansing Rinsed/ Irrigated with Saline -Foul Odor after Cleansing No -Bioengineered Tissue Yes -Type of bioengineered Tissue EPIFIX -Expiration Date 10/29/22 -Product Lot Number [id number] -Percent Used 100 -Saline Lot Number [id number] -Bleeding Controlled with Pressure -Offloading No -Treatment Response Procedure Tolerated Well [See Physician Procedure note for Specifics] Pain Scale: 0-10 Numeric [Pain] -Is Patient Pain Free? Yes Musculoskeletal: No Tenderness to Palpation of Joints or Extremities, Muscle Wasting Neurological: - - Lack of normal epicritic sensation around the ulcer site of the left leg Psych/Mental Status: Normal Affect, Appropriate Debridement Note Post-Debridement Measurements/Treatment WC - Nurse 2 - General Ulcer CM Notes Start: 06/10/18 15:52 Freq: Status: Active Protocol: Activity Type Activity Date Activity User E-Sign Co-Sign Detail Recorded Client Recorded Date Recorded By Document 06/10/18 16:28 AN [id number] 06/10/18 16:34 AN Document 06/17/18 16:11 JF [id number] 06/17/18 16:14 JF 06/10/18 06/17/18 16:28 16:11 Wound Center Nurse 2 #3 Left Ellison cluster -Time 16:31 16:11 -Correct Patient Yes Yes -Correct Side, Site, Position Yes Yes -Correct Procedure Yes Yes -Procedure Performed Yes Yes -Type of Procedure Debridement Debridement -Clinical Debridement Subcutaneous Subcutaneous -Post Debridement Size (cm) - Length 2.1 2.3 -Post Debridement Size (cm) - Width 1.5 1.7 -Post Debridement Size (cm) - Depth 0.1 0.1 -Total Square Cm 3.15 3.91 -Wound/Ulcer Outcome Not Healed Not Healed -Ulcer Cleansing Rinsed/ Rinsed/ Irrigated with Irrigated with Saline Saline -Foul Odor after Cleansing No No -Bioengineered Tissue No Yes -Type of bioengineered Tissue EPIFIX -Expiration Date 10/29/22 -Product Lot Number [id number] -Percent Used 100 -Saline Lot Number [id number] -Bleeding Controlled with Pressure Pressure -Offloading No No -Treatment Response Procedure Procedure Tolerated Well Tolerated Well Pain Scale: 0-10 Numeric Is Patient Pain Free? Yes Yes Wound debrided: anterior leg Laterality: Left Type of Debridement: Excisional debridement Anesthesia Used: 5% Lidocaine Gel Depth: in the subcutaneous layer Percentage of wound debrided: 100 Instrument Used: #15 blade Tissue Removed: fibrous, devitalized subcutaneous, biofilm, slough Severity: Fat Layer Exposed Amount of bleeding with debridement: Mild Bleeding Controlled with: Pressure Patient tolerated procedure well Assessment/Plan Assessment: Chronic and recurrent ulcer to the left ellison -healed today. Venous insufficiency left lower extremity. lymphedema. non compliance. delayed healing Plan: I reviewed and discussed her case. The ulcer site was debrided today as noted in the clinical panel. To resume nutritional supplementation. She is r eassured there are no signs of infection. Her previous venous intervention with Dr. Machado is noted and appreciated. I recommended application of advanced wound care product, epi fix. This is recommended to optimize healing and is medically necessary. It is necessary for limb salvage. She is amenable after we discussed the indications, planned application, benefits, risks, and anticipated healing time and management. Verbal consent was obtained and the product was applied according to standard protocol. The epi fix was moistened with saline and secured in place with a wound veil and Steri-Strips. A secondary dressing was applied and she was advised to leave this clean and intact until follow-up visit next week. To continue periodic hourly elevation throughout the day. I recommend a nutrition referral to optimize wound healing and reduce edema and weight. She is adamant that she will not attend; this is consistent with noncompliance. I explained the purpose and the benefits of this referral. To return to clinic in 1 week at the wound care center or call sooner if questions or concerns. I answered all of her questions today.
[2018-06-24 15:40] VITALS: BP 155/70; PULSE 68; RESP 16; TEMP 35.5
--- NOTE | 2018-06-24 16:52 | PCM.WC.PN ---
(1) Chronic ulcer of left lower extremity with fat layer exposed Status: Chronic Code(s): L97.922 - Non-pressure chronic ulcer of unspecified part of left lower leg with fat layer exposed (2) Lymphedema Status: Chronic Code(s): I89.0 - Lymphedema, not elsewhere classified (3) Venous insufficiency (chronic) (peripheral) Status: Chronic Code(s): I87.2 - Venous insufficiency (chronic) (peripheral) (4) Delayed wound healing Status: Chronic Code(s): T14.8XXD - Other injury of unspecified body region, subsequent encounter (5) Malnutrition Status: Chronic Code(s): E46 - Unspecified protein-calorie malnutrition Type of Wound Date of Service: 06/24/18 Chief Complaint: Chronic ulcer to the left lower extremity History of Wound: This 62 year old patient returns to the wound healing center for follow up of her chronic ulcer to her left ellison. She did have her venous procedure completed with vascular surgeon, Dr. Machado. She denies pain, fever, chill, nausea, vomiting. She continues with aggressive compression therapy as advised. She denies redness or odor. She continues to use compression pumps. She adamantly refuses nutrition consultation. Progress of Wound: Improving - Physical Exam Vital Signs Temp Pulse Resp BP 95.9 F L 68 16 155/70 H 06/24/18 15:40 06/24/18 15:40 06/24/18 15:40 06/24/18 15:40 General: Alert, Oriented x3, Cooperative HEENT: Atraumatic Extremities: No cyanosis, Capillary Refill Less than 3 Seconds, No Calf Tenderness - Negative Italo and Castillo bilateral, Diminished Peripheral Pulses, Edema - Moderate left consistent with previous exams, - - No ulcer manipulation pain Skin: Ulcer/ Wound - No purulence, erythema, streaking, odor, or infection left. The peripheral skin is hairless and atrophic Wound Measurements and Assessment WC - Nurse 1 - General Ulcer Measurement Start: 06/10/18 15:52 Freq: Status: Active Protocol: Activity Type Activity Date Activity User E-Sign Co-Sign Detail Recorded Client Recorded Date Recorded By Document 06/24/18 15:40 BMF [id number] 06/24/18 15:47 BMF 06/24/18 15:40 Wound Center Nurse 1 [Ulcer Assessment] #3 Left Ellison cluster -Combined with other wound No -Current Size (cm) - Length 1.5 -Current Size (cm) - Width 1.5 -Current Size (cm) - Depth 0.1 -Total Square Cm 2.25 -Photo Taken No -Epithelialization Small 1-33% -Tunneling No -Undermining/Tunneling No -Circular Undermining No -Exudate Amt Small -Exudate Type Serosanguineous -Wound Margin Flat & Intact -Granulation Amt Large (67-100%) -Granulation Quality Red -Slough/Fibrin Yes -Necrosis Amt Small (1-33%) -Necrotic Tissue Type Adherent Slough -Texture (Jenny-wound Skin Appearance) Assessed Scarring -Moisture (Jenny-wound Skin Appearance Assessed ) Dry/Scaly -Color (Jenny-wound Skin Appearance) Assessed Hemosiderin Staining -Temperature (Jenny-wound Skin No Abnormality Appearance) (Pt Warm) -Tenderness on Palpation (Jenny-wound No Skin Appearance) -Ulcer Cleansing Wound Cleanser -Foul Odor after Cleansing No -Anesthetic Used 5% Lidocaine Gel [Edema Assessment] -Lower Limb Edema Present Yes -Left Calf (cm) 52.8 -Left Ankle (cm) 30.1 WC - Nurse 2 - General Ulcer CM Notes Start: 06/10/18 15:52 Freq: Status: Active Protocol: Activity Type Activity Date Activity User E-Sign Co-Sign Detail Recorded Client Recorded Date Recorded By Document 06/24/18 15:59 AN [id number] 06/24/18 16:02 AN 06/24/18 15:59 Wound Center Nurse 2 [Procedure/Treatment] #3 Left Ellison cluster -Time 16:01 -Correct Patient Yes -Correct Side, Site, Position Yes -Correct Procedure Yes -Procedure Performed Yes -Type of Procedure Debridement -Clinical Debridement Subcutaneous -Post Debridement Size (cm) - Length 1.6 -Post Debridement Size (cm) - Width 1.6 -Post Debridement Size (cm) - Depth 0.1 -Total Square Cm 2.56 -Type of bioengineered Tissue EPIFIX -Expiration Date 11/29/22 -Product Lot Number [id number] -Percent Used 100 [See Physician Procedure note for Specifics] Pain Scale: 0-10 Numeric [Pain] -Is Patient Pain Free? Yes Musculoskeletal: No Tenderness to Palpation of Joints or Extremities, Muscle Wasting, - - Compartments soft to palpate left lower extremity Neurological: - - Lack of normal epicritic sensation light touch Psych/Mental Status: Normal Affect, Appropriate Debridement Note Post-Debridement Measurements/Treatment WC - Nurse 2 - General Ulcer CM Notes Start: 06/10/18 15:52 Freq: Status: Active Protocol: Activity Type Activity Date Activity User E-Sign Co-Sign Detail Recorded Client Recorded Date Recorded By Document 06/10/18 16:28 AN [id number] 06/10/18 16:34 AN Document 06/17/18 16:11 [id number] 06/17/18 16:14 Document 06/24/18 15:59 AN [id number] 06/24/18 16:02 AN 06/10/18 06/17/18 06/24/18 16:28 16:11 15:59 Wound Center Nurse 2 #3 Left Ellison cluster -Time 16:31 16:11 16:01 -Correct Patient Yes Yes Yes -Correct Side, Site, Position Yes Yes Yes -Correct Procedure Yes Yes Yes -Procedure Performed Yes Yes Yes -Type of Procedure Debridement Debridement Debridement -Clinical Debridement Subcutaneous Subcutaneous Subcutaneous -Post Debridement Size (cm) - Length 2.1 2.3 1.6 -Post Debridement Size (cm) - Width 1.5 1.7 1.6 -Post Debridement Size (cm) - Depth 0.1 0.1 0.1 -Total Square Cm 3.15 3.91 2.56 -Wound/Ulcer Outcome Not Healed Not Healed -Ulcer Cleansing Rinsed/ Rinsed/ Irrigated with Irrigated with Saline Saline -Foul Odor after Cleansing No No -Bioengineered Tissue No Yes -Type of bioengineered Tissue EPIFIX EPIFIX -Expiration Date 10/29/22 11/29/22 -Product Lot Number [id number] -Percent Used 100 100 -Saline Lot Number [id number] -Bleeding Controlled with Pressure Pressure -Offloading No No -Treatment Response Procedure Procedure Tolerated Well Tolerated Well Pain Scale: 0-10 Numeric Is Patient Pain Free? Yes Yes Yes Wound debrided: anterior leg Laterality: Left Type of Debridement: Excisional debridement Anesthesia Used: 5% Lidocaine Gel Depth: in the subcutaneous layer Percentage of wound debrided: 100 Instrument Used: #15 blade Tissue Removed: fibrous, devitalized subcutaneous, biofilm, slough Severity: Fat Layer Exposed Amount of bleeding with debridement: Mild Bleeding Controlled with: Pressure Patient tolerated procedure well Assessment/Plan Assessment: Chronic and recurrent ulcer to the left ellison. venous insufficiency. h/o DVT to left lower extremity, already treated. lymphedema. non compliance. delayed healing Plan: I reviewed and discussed her case. The ulcer site was debrided today as noted in the clinical panel. To resume nutritional supplementation. She is reassured there are no signs of infection. Her previous venous intervention with Dr. Machado is noted and appreciated. I recommended application of advanced wound care product, epi fix. This is recommended to optimize healing and is medically necessary. It is necessary for limb salvage. She is amenable after we discussed the indications, planned application, benefits, risks, and anticipated healing time and management. Verbal consent was obtained and the product was applied according to standard protocol. The epi fix was moistened with saline and secured in place with a wound veil and Steri-Strips. A secondary dressing was applied and she was advised to leave this clean and intact until follow-up visit next week. To continue periodic hourly elevation throughout the day. I recommend a nutrition referral to optimize wound healing and reduce edema and weight. She is adamant that she will not attend; this is consistent with noncompliance. I explained the purpose and the benefits of this referral. To return to clinic in 1 week at the wound care center or call sooner if questions or concerns. I answered all of her questions today.
== END 2018-06-28 23:59 ==
LOC: WC 16:00
PROVIDERS: Family Provider Internal Medicine; PCP Internal Medicine; Visit Provider Podiatrist
DX: I87.2 Venous insufficiency (chronic) (peripheral) (principal); I89.0 Lymphedema, not elsewhere classified; L97.822 Non-pressure chronic ulcer of other part of left lower leg with fat layer exposed; Z91.19 Patient's noncompliance with other medical treatment and regimen
CPT/HCPCS: 11042; 15271; Q4186

== ENCOUNTER 2018-07-22 16:00 | Outpatient (RCR) | payer MEDICAID, SELFPAY ==
[2018-06-29 00:44] VITALS: BP 155/70; PULSE 68; RESP 16; TEMP 35.5
[2018-07-01 15:50] VITALS: BP 133/75; PULSE 63; RESP 16; TEMP 35.9
--- NOTE | 2018-07-01 16:11 | PN.PCM_ITS ---
(1) Chronic ulcer of left lower extremity with fat layer exposed Status: Chronic Current Visit: Yes Code(s): L97.922 - Non-pressure chronic ulcer of unspecified part of left lower leg with fat layer exposed (2) Lymphedema Status: Chronic Current Visit: Yes Code(s): I89.0 - Lymphedema, not elsewhere classified (3) Venous insufficiency (chronic) (peripheral) Status: Chronic Current Visit: Yes Code(s): I87.2 - Venous insufficiency (chronic) (peripheral) (4) Delayed wound healing Status: Chronic Current Visit: Yes Code(s): T14.8XXD - Other injury of unspecified body region, subsequent encounter Type of Wound Date of Service: 07/01/18 Chief Complaint: Chronic ulcer to the left lower extremity History of Wound: This 62 year old patient returns to the wound healing center for follow up of her chronic ulcer to her left ellison. She did have her venous procedure completed with vascular surgeon, Dr. Machado. She denies pain, fever, chill, nausea, vomiting. She continues with aggressive compression therapy as advised. She denies redness or odor. She continues to use compression pumps. She refused nutrition consultation. Progress of Wound: Stable - Physical Exam Vital Signs Temp Pulse Resp BP 96.6 F L 63 16 133/75 H 07/01/18 15:50 07/01/18 15:50 07/01/18 15:50 07/01/18 15:50 General: Alert, Oriented x3, Cooperative Extremities: No cyanosis, Capillary Refill Less than 3 Seconds, No Calf Tenderness - Negative Italo and Castillo left, Diminished Peripheral Pulses, Edema Skin: Ulcer/ Wound - No purulence, erythema, streaking, odor, or infection. The peripheral scale does have chronic hyperpigmentation and is atrophic and hairless. There is no exposed deep tissue necrosis. Wound Measurements and Assessment WC - Nurse 1 - General Ulcer Measurement Start: 07/01/18 15:49 Freq: Status: Active Protocol: Activity Type Activity Date Activity User E-Sign Co-Sign Detail Recorded Client Recorded Date Recorded By Document 07/01/18 15:50 BMF [id number] 07/01/18 15:53 BMF 07/01/18 15:50 Wound Center Nurse 1 [Ulcer Assessment] #3 Left Ellison cluster -Combined with other wound No -Current Size (cm) - Length 1.6 -Current Size (cm) - Width 1.1 -Current Size (cm) - Depth 0.1 -Total Square Cm 1.76 -Photo Taken No -Tunneling No -Undermining/Tunneling No -Circular Undermining No -Exudate Amt Medium -Exudate Type Serosanguineous -Wound Margin Flat & Intact -Granulation Amt Small (1-33%) -Granulation Quality Red -Slough/Fibrin Yes -Necrosis Amt Large (67-100%) -Necrotic Tissue Type Adherent Slough -Texture (Jenny-wound Skin Appearance) Assessed Scarring -Moisture (Jenny-wound Skin Appearance Dry/Scaly ) -Color (Jenny-wound Skin Appearance) Assessed -Temperature (Jenny-wound Skin No Abnormality Appearance) (Pt Warm) -Tenderness on Palpation (Jenny-wound No Skin Appearance) -Ulcer Cleansing Rinsed/ Irrigated with Saline -Foul Odor after Cleansing No -Anesthetic Used 5% Lidocaine Gel [Edema Assessment] -Lower Limb Edema Present Yes -Left Calf (cm) 50.6 -Left Ankle (cm) 27 WC - Nurse 2 - General Ulcer CM Notes Start: 07/01/18 15:49 Freq: Status: Active Protocol: Activity Type Activity Date Activity User E-Sign Co-Sign Detail Recorded Client Recorded Date Recorded By Document 07/01/18 16:01 JEFF [id number] 07/01/18 16:02 JEFF 07/01/18 16:01 Wound Center Nurse 2 [Procedure/Treatment] #3 Left Ellison cluster -Time 16:01 -Correct Patient Yes -Correct Side, Site, Position Yes -Correct Procedure Yes -Procedure Performed Yes -Type of Procedure Debridement -Clinical Debridement Subcutaneous -Post Debridement Size (cm) - Length 1.6 -Post Debridement Size (cm) - Width 1.2 -Post Debridement Size (cm) - Depth 0.1 -Total Square Cm 1.92 -Wound/Ulcer Outcome Not Healed -Ulcer Cleansing Rinsed/ Irrigated with Saline -Foul Odor after Cleansing No -Bioengineered Tissue Yes -Type of bioengineered Tissue EPIFIX -Expiration Date 11/29/22 -Product Lot Number [id number] -Percent Used 100 -Saline Lot Number [id number] -Bleeding Controlled with Pressure -Offloading No -Treatment Response Procedure Tolerated Well [See Physician Procedure note for Specifics] Pain Scale: 0-10 Numeric [Pain] -Is Patient Pain Free? Yes Musculoskeletal: No Tenderness to Palpation of Joints or Extremities, Muscle Wasting, - - Compartments soft to palpate left lower extremity Neurological: - - Lack of epicritic sensation light touch around the ulcer site Psych/Mental Status: Normal Affect, Appropriate Debridement Note Post-Debridement Measurements/Treatment WC - Nurse 2 - General Ulcer CM Notes Start: 07/01/18 15:49 Freq: Status: Active Protocol: Activity Type Activity Date Activity User E-Sign Co-Sign Detail Recorded Client Recorded Date Recorded By Document 07/01/18 16:01 JF [id number] 07/01/18 16:02 JEFF 07/01/18 16:01 Wound Center Nurse 2 #3 Left Ellison cluster -Time 16:01 -Correct Patient Yes -Correct Side, Site, Position Yes -Correct Procedure Yes -Procedure Performed Yes -Type of Procedure Debridement -Clinical Debridement Subcutaneous -Post Debridement Size (cm) - Length 1.6 -Post Debridement Size (cm) - Width 1.2 -Post Debridement Size (cm) - Depth 0.1 -Total Square Cm 1.92 -Wound/Ulcer Outcome Not Healed -Ulcer Cleansing Rinsed/ Irrigated with Saline -Foul Odor after Cleansing No -Bioengineered Tissue Yes -Type of bioengineered Tissue EPIFIX -Expiration Date 11/29/22 -Product Lot Number [id number] -Percent Used 100 -Saline Lot Number [id number] -Bleeding Controlled with Pressure -Offloading No -Treatment Response Procedure Tolerated Well Pain Scale: 0-10 Numeric Is Patient Pain Free? Yes Wound debrided: anterior leg Laterality: Left Type of Debridement: Excisional debridement Anesthesia Used: 5% Lidocaine Gel Depth: in the subcutaneous layer Percentage of wound debrided: 100 Instrument Used: #15 blade Tissue Removed: fibrous, devitalized subcutaneous, biofilm, slough Severity: Fat Layer Exposed Amount of bleeding with debridement: Mild Bleeding Controlled with: Pressure Patient tolerated procedure well Assessment/Plan Active Problems Lymphedema (Chronic) Venous insufficiency (chronic) (peripheral) (Chronic) Delayed wound healing (Chronic) Chronic ulcer of left lower extremity with fat layer exposed (Chronic) Assessment: Chronic and recurrent ulcer to the left ellison. venous insufficiency. h/o DVT to left lower extremity, already treated. lymphedema. non compliance. delayed healing Plan: I reviewed and discussed her case. The ulcer site was debrided today as noted in the clinical panel. To resume nutritional supplementation. She is reassured there are no signs of infection. Her previous venous intervention with Dr. Machado is noted and appreciated. To continue surgery compression dressing; to avoid over tightening strap directly over the ulcer site to avoid pressure. To continue with lymphedema pumps up to twice daily and periodic elevation. To avoid idle standing or sitting. I recommended application of advanced wound care product, epi fix. This is recommended to optimize healing and is medically necessary. It is necessary for limb salvage. She is amenable after we discussed the indications, planned application, benefits, risks, and anticipated healing time and management. Verbal consent was obtained and the product was applied according to standard protocol. The epi fix was moistened with saline and secured in place with a wound veil and Steri-Strips. A secondary dressing was applied and she was advised to leave this clean and int act until follow-up visit next week. To continue periodic hourly elevation throughout the day. I recommend a nutrition referral to optimize wound healing and reduce edema and weight. She is adamant that she will not attend; this is consistent with noncompliance. I explained the purpose and the benefits of this referral. To return to clinic in 1 week at the wound care center or call sooner if questions or concerns. I answered all of her questions today.
[2018-07-09 15:36] VITALS: BP 126/70; PULSE 72; RESP 20; TEMP 36.6
--- NOTE | 2018-07-09 18:00 | PCM.WC.PN ---
(1) Chronic ulcer of left lower extremity with fat layer exposed Status: Chronic Current Visit: Yes Code(s): L97.922 - Non-pressure chronic ulcer of unspecified part of left lower leg with fat layer exposed (2) Lymphedema Status: Chronic Current Visit: Yes Code(s): I89.0 - Lymphedema, not elsewhere classified (3) Venous insufficiency (chronic) (peripheral) Status: Chronic Current Visit: Yes Code(s): I87.2 - Venous insufficiency (chronic) (peripheral) (4) Delayed wound healing Status: Chronic Current Visit: Yes Code(s): T14.8XXD - Other injury of unspecified body region, subsequent encounter Type of Wound Date of Service: 07/09/18 Chief Complaint: Chronic ulcer to the left lower extremity History of Wound: This 62 year old patient returns to the wound healing center for follow up of her chronic ulcer to her left ellison. She did have her venous procedure completed with vascular surgeon, Dr. Machado. She denies pain, fever, chill, nausea, vomiting. She continues with aggressive compression therapy as advised. She denies redness or odor. She continues to use compression pumps. She refused nutrition consultation. Progress of Wound: improving - Physical Exam Vital Signs Temp Pulse Resp BP 97.9 F 72 20 H 126/70 H 07/09/18 15:36 07/09/18 15:36 07/09/18 15:36 07/09/18 15:36 General: Alert, Oriented x3, Cooperative Extremities: No cyanosis, Capillary Refill Less than 3 Seconds, No Calf Tenderness - neg palencia, left, Diminished Peripheral Pulses, Edema Skin: Ulcer/ Wound - no purulence, no erythema, no streaking, no infection or necrosis. atrophic adjacent skin with lack of hair Wound Measurements and Assessment WC - Nurse 1 - General Ulcer Measurement Start: 07/01/18 15:49 Freq: Status: Active Protocol: Activity Type Activity Date Activity User E-Sign Co-Sign Detail Recorded Client Recorded Date Recorded By Document 07/09/18 15:36 DL [id number] 07/09/18 15:45 DL 07/09/18 15:36 Wound Center Nurse 1 [Ulcer Assessment] #3 Left Ellison cluster -Current Size (cm) - Length 0.4 -Current Size (cm) - Width 0.6 -Current Size (cm) - Depth 0.1 -Total Square Cm 0.24 -Photo Taken No -Exudate Amt None Present -Wound Margin Distinct, Outline Attached -Granulation Amt Small (1-33%) -Granulation Quality [place] -Necrosis Amt Small (1-33%) -Necrotic Tissue Type Adherent Slough -Structure Exposed N/A -Texture (Jenny-wound Skin Appearance) Scarring -Moisture (Jenny-wound Skin Appearance Dry/Scaly ) -Color (Jenny-wound Skin Appearance) Rubor -Temperature (Jenny-wound Skin No Abnormality Appearance) (Pt Warm) -Tenderness on Palpation (Jenny-wound No Skin Appearance) -Ulcer Cleansing Wound Cleanser -Foul Odor after Cleansing No -Anesthetic Used 5% Lidocaine Gel [Edema Assessment] -Left Calf (cm) 47 -Left Ankle (cm) 28 WC - Nurse 2 - General Ulcer CM Notes Start: 07/01/18 15:49 Freq: Status: Active Protocol: Activity Type Activity Date Activity User E-Sign Co-Sign Detail Recorded Client Recorded Date Recorded By Document 07/09/18 16:18 AN [id number] 07/09/18 16:22 AN 07/09/18 16:18 Wound Center Nurse 2 [Procedure/Treatment] #3 Left Ellison cluster -Time 16:19 -Correct Patient Yes -Correct Side, Site, Position Yes -Correct Procedure Yes -Procedure Performed Yes -Type of Procedure Debridement -Clinical Debridement Subcutaneous -Post Debridement Size (cm) - Length 0.5 -Post Debridement Size (cm) - Width 0.7 -Post Debridement Size (cm) - Depth 0.1 -Total Square Cm 0.35 -Wound/Ulcer Outcome Not Healed -Ulcer Cleansing Rinsed/ Irrigated with Saline -Foul Odor after Cleansing No -Bioengineered Tissue Yes -Type of bioengineered Tissue EPIFIX -Expiration Date 11/29/22 -Product Lot Number [id number] -Percent Used 100 -Saline Lot Number [id number] -Topical Lidocaine (%) 4 -Bleeding Controlled with Pressure -Offloading No -Treatment Response Procedure Tolerated Well [See Physician Procedure note for Specifics] Pain Scale: 0-10 Numeric [Pain] -Is Patient Pain Free? Yes Musculoskeletal: No Tenderness to Palpation of Joints or Extremities, Muscle Wasting Neurological: Sensory exam intact to light touch and pain Psych/Mental Status: Normal Affect, Appropriate Debridement Note Post-Debridement Measurements/Treatment WC - Nurse 2 - General Ulcer CM Notes Start: 07/01/18 15:49 Freq: Status: Active Protocol: Activity Type Activity Date Activity User E-Sign Co-Sign Detail Recorded Client Recorded Date Recorded By Document 07/01/18 16:01 JEFF [id number] 07/01/18 16:02 Document 07/09/18 16:18 AN [id number] 07/09/18 16:22 AN 07/01/18 07/09/18 16:01 16:18 Wound Center Nurse 2 #3 Left Ellison cluster -Time 16:01 16:19 -Correct Patient Yes Yes -Correct Side, Site, Position Yes Yes -Correct Procedure Yes Yes -Procedure Performed Yes Yes -Type of Procedure Debridement Debridement -Clinical Debridement Subcutaneous Subcutaneous -Post Debridement Size (cm) - Length 1.6 0.5 -Post Debridement Size (cm) - Width 1.2 0.7 -Post Debridement Size (cm) - Depth 0.1 0.1 -Total Square Cm 1.92 0.35 -Wound/Ulcer Outcome Not Healed Not Healed -Ulcer Cleansing Rinsed/ Rinsed/ Irrigated with Irrigated with Saline Saline -Foul Odor after Cleansing No No -Bioengineered Tissue Yes Yes -Type of bioengineered Tissue EPIFIX EPIFIX -Expiration Date 11/29/22 11/29/22 -Product Lot Number [id number] -Percent Used 100 100 -Saline Lot Number [id number] -Topical Lidocaine (%) 4 -Bleeding Controlled with Pressure Pressure -Offloading No No -Treatment Response Procedure Procedure Tolerated Well Tolerated Well Pain Scale: 0-10 Numeric Is Patient Pain Free? Yes Yes Wound debrided: anterior leg Laterality: Left Type of Debridement: Excisional debridement Anesthesia Used: 5% Lidocaine Gel Depth: in the subcutaneous layer Percentage of wound debrided: 100 Instrument Used: #15 blade Tissue Removed: fibrous, devitalized subcutaneous, biofilm, slough Severity: Fat Layer Exposed Amount of bleeding with debridement: Mild Bleeding Controlled with: Pressure Patient tolerated procedure well Assessment/Plan Active Problems Lymphedema (Chronic) Venous insufficiency (chronic) (peripheral) (Chronic) Delayed wound healing (Chronic) Chronic ulcer of left lower extremity with fat layer exposed (Chronic) Assessment: Chronic and recurrent ulcer to the left ellison. venous insufficiency. h/o DVT to left lower extremity, already treated. lymphedema. non compliance. delayed healing Plan: I reviewed and discussed her case. The ulcer site was debrided today as noted in the clinical panel. To resume nutritional supplementation. She is reassured there are no signs of infection. Her previous venous intervention with Dr. Machado is noted and appreciated. To continue surgery compression dressing; to avoid over tightening strap directly over the ulcer site to avoid pressure. To continue with lymphedema pumps up to twice daily and periodic elevation. To avoid idle standing or sitting. I recommended application of advanced wound care product, epi fix. This is recommended to optimize healing and is medically necessary. It is necessary for limb salvage. She is amenable after we discussed the indications, planned application, benefits, risks, and anticipated healing time and management. Verbal consent was obtained and the product was applied according to standard protocol. The epi fix was moistened with saline and secured in place with a wound veil and Steri-Strips. A secondary dressing was applied and she was advised to leave this clean and intact until follow-up visit next week. To continue periodic hourly elevation throughout the day. I recommend a nutrition referral to optimize wound healing and reduce edema and weight. She is adamant that she will not attend; this is consistent with noncompliance. I explained the purpose and the benefits of this referral. To return to clinic in 1 week at the wound care center or call sooner if questions or concerns. I answered all of her questions today.
[2018-07-15 15:43] VITALS: BP 136/73; PULSE 73; RESP 18; TEMP 36.6
--- NOTE | 2018-07-15 16:25 | PN.PCM_ITS ---
(1) Chronic ulcer of left lower extremity with fat layer exposed Status: Chronic Code(s): L97.922 - Non-pressure chronic ulcer of unspecified part of left lower leg with fat layer exposed (2) Lymphedema Status: Chronic Code(s): I89.0 - Lymphedema, not elsewhere classified (3) Venous insufficiency (chronic) (peripheral) Status: Chronic Code(s): I87.2 - Venous insufficiency (chronic) (peripheral) (4) Delayed wound healing Status: Chronic Code(s): T14.8XXD - Other injury of unspecified body region, subsequent encounter Type of Wound Date of Service: 07/15/18 Chief Complaint: Chronic ulcer to the left lower extremity History of Wound: This 62 year old patient returns to the wound healing center for follow up of her chronic ulcer to her left ellison. She did have her venous procedure completed with vascular surgeon, Dr. Machado. She denies pain, fever, chill, nausea, vomiting. She continues with aggressive compression therapy as advised. She denies redness or odor. She uses lymphedema compression pumps as advised. Progress of Wound: improving - Physical Exam Vital Signs Temp Pulse Resp BP 97.8 F 73 18 136/73 H 07/15/18 15:43 07/15/18 15:43 07/15/18 15:43 07/15/18 15:43 General: Alert, Oriented x3, Cooperative HEENT: Atraumatic Extremities: No cyanosis, Capillary Refill Less than 3 Seconds, No Calf Tenderness - Negative Italo and Castillo sign left, Diminished Peripheral Pulses, Edema - Moderate bilateral lower extremities, - - Compartments soft to palpate left lower extremity. No pain with ulcer manipulation of debridement left Skin: Ulcer/ Wound - No purulence, erythema, streaking, odor, or infection left. Peripheral skin is hairless and atrophic. There is very minimal hyperpigmentation noted Wound Measurements and Assessment WC - Nurse 1 - General Ulcer Measurement Start: 07/01/18 15:49 Freq: Status: Active Protocol: Activity Type Activity Date Activity User E-Sign Co-Sign Detail Recorded Client Recorded Date Recorded By Document 07/15/18 15:43 DL [id number] 07/15/18 15:53 DL 07/15/18 15:43 Wound Center Nurse 1 [Ulcer Assessment] #3 Left Ellison cluster -Current Size (cm) - Length 0.6 -Current Size (cm) - Width 0.7 -Current Size (cm) - Depth 0.1 -Total Square Cm 0.42 -Photo Taken No -Exudate Amt Small -Exudate Type Serosanguineous -Wound Margin Distinct, Outline Attached -Granulation Amt Small (1-33%) -Granulation Quality [place] -Necrosis Amt Small (1-33%) -Necrotic Tissue Type Adherent Slough -Structure Exposed N/A -Texture (Chaya-wound Skin Appearance) Scarring -Moisture (Chaya-wound Skin Appearance Dry/Scaly ) -Color (Chaya-wound Skin Appearance) Hemosiderin Staining -Temperature (Chaya-wound Skin No Abnormality Appearance) (Pt Warm) -Tenderness on Palpation (Chaya-wound No Skin Appearance) -Ulcer Cleansing Rinsed/ Irrigated with Saline -Foul Odor after Cleansing No -Anesthetic Used 5% Lidocaine Gel [Edema Assessment] -Left Calf (cm) 48 -Left Ankle (cm) 25.8 WC - Nurse 2 - General Ulcer CM Notes Start: 07/01/18 15:49 Freq: Status: Active Protocol: Activity Type Activity Date Activity User E-Sign Co-Sign Detail Recorded Client Recorded Date Recorded By Document 07/15/18 16:18 [id number] 07/15/18 16:19 JEFF 07/15/18 16:18 Wound Center Nurse 2 [Procedure/Treatment] #3 Left Ellison cluster -Correct Patient Yes -Correct Side, Site, Position Yes -Correct Procedure Yes -Procedure Performed Yes -Type of Procedure Debridement -Clinical Debridement Subcutaneous -Post Debridement Size (cm) - Length 0.7 -Post Debridement Size (cm) - Width 0.7 -Post Debridement Size (cm) - Depth 0.1 -Total Square Cm 0.49 -Wound/Ulcer Outcome Not Healed -Ulcer Cleansing Rinsed/ Irrigated with Saline -Foul Odor after Cleansing No -Bioengineered Tissue Yes -Type of bioengineered Tissue EPIFIX -Expiration Date 11/29/22 -Product Lot Number [id number] -Percent Used 100 -Saline Lot Number [id number] -Bleeding Controlled with Pressure -Offloading No -Treatment Response Procedure Tolerated Well [See Physician Procedure note for Specifics] Pain Scale: 0-10 Numeric [Pain] -Is Patient Pain Free? Yes Musculoskeletal: No Tenderness to Palpation of Joints or Extremities, Muscle Wasting Neurological: - - Lack of normal epicritic sensation to light touch chaya-ulcer site lower extremity Psych/Mental Status: Normal Affect, Appropriate Debridement Note Post-Debridement Measurements/Treatment WC - Nurse 2 - General Ulcer CM Notes Start: 07/01/18 15:49 Freq: Status: Active Protocol: Activity Type Activity Date Activity User E-Sign Co-Sign Detail Recorded Client Recorded Date Recorded By Document 07/01/18 16:01 JF [id number] 07/01/18 16:02 JF Document 07/09/18 16:18 AN [id number] 07/09/18 16:22 AN Document 07/15/18 16:18 JF [id number] 07/15/18 16:19 JF 07/01/18 07/09/18 07/15/18 16:01 16:18 16:18 Wound Center Nurse 2 #3 Left Ellison cluster -Time 16:01 16:19 -Correct Patient Yes Yes Yes -Correct Side, Site, Position Yes Yes Yes -Correct Procedure Yes Yes Yes -Procedure Performed Yes Yes Yes -Type of Procedure Debridement Debridement Debridement -Clinical Debridement Subcutaneous Subcutaneous Subcutaneous -Post Debridement Size (cm) - Length 1.6 0.5 0.7 -Post Debridement Size (cm) - Width 1.2 0.7 0.7 -Post Debridement Size (cm) - Depth 0.1 0.1 0.1 -Total Square Cm 1.92 0.35 0.49 -Wound/Ulcer Outcome Not Healed Not Healed Not Healed -Ulcer Cleansing Rinsed/ Rinsed/ Rinsed/ Irrigated with Irrigated with Irrigated with Saline Saline Saline -Foul Odor after Cleansing No No No -Bioengineered Tissue Yes Yes Yes -Type of bioengineered Tissue EPIFIX EPIFIX EPIFIX -Expiration Date 11/29/22 11/29/22 11/29/22 -Product Lot Number [id number] -Percent Used 100 100 100 -Saline Lot Number [id number] -Topical Lidocaine (%) 4 -Bleeding Controlled with Pressure Pressure Pressure -Offloading No No No -Treatment Response Procedure Procedure Procedure Tolerated Well Tolerated Well Tolerated Well Pain Scale: 0-10 Numeric Is Patient Pain Free? Yes Yes Yes Wound debrided: leg Laterality: Left Type of Debridement: Excisional debridement Anesthesia Used: 5% Lidocaine Gel Depth: in the subcutaneous layer Percentage of wound debrided: 100 Instrument Used: #15 blade Tissue Removed: fibrous, devitalized subcutaneous, biofilm, slough Severity: Fat Layer Exposed Amount of bleeding with debridement: Mild Bleeding Controlled with: Pressure Patient tolerated procedure well Assessment/Plan Assessment: Chronic and recurrent ulcer to the left ellison. venous insufficiency. h/o DVT to left lower extremity, already treated. lymphedema. non compliance. delayed healing Plan: I reviewed and discussed her case. The ulcer site was debrided today as noted in the clinical panel. To resume nutritional supplementation. She is reassured there are no signs of infection. Her previous venous intervention with Dr. Machado is noted and appreciated. To continue surgery compression dressing; to avoid over tightening strap directly over the ulcer site to avoid pressure. To continue with lymphedema pumps up to twice daily and periodic elevation. To avoid idle standing or sitting. I recommended application of advanced wound care product, epi fix. This is recommended to optimize healing and is medically necessary. It is necessary for limb salvage. She is amenable after we discussed the indications, planned application, benefits, risks, and anticipated healing time and management. Verbal consent was obtained and the product was applied according to standard protocol. The epi fix was moistened with saline and secured in place with a wound veil and Steri-Strips. A secondary dressing was applied and she was advised to leave this clean and intact until follow-up visit next week. To continue periodic hourly elevation throughout the day. I recommend a nutrition referral to optimize wound healing and reduce edema and weight. She was previously adamant that she will not attend; this is consistent with noncompliance. I explained the purpose and the benefits of this referral. To return to clinic in 1 week at the wound care center or call sooner if questions or concerns. I answered all of her questions today.
[2018-07-22 15:51] VITALS: BP 135/68; PULSE 78; RESP 16; TEMP 36.5
--- NOTE | 2018-07-22 17:10 | PCM.WC.PN ---
(1) Chronic ulcer of left lower extremity with fat layer exposed Status: Chronic Current Visit: Yes Code(s): L97.922 - Non-pressure chronic ulcer of unspecified part of left lower leg with fat layer exposed (2) Lymphedema Status: Chronic Current Visit: Yes Code(s): I89.0 - Lymphedema, not elsewhere classified (3) Venous insufficiency (chronic) (peripheral) Status: Chronic Current Visit: Yes Code(s): I87.2 - Venous insufficiency (chronic) (peripheral) (4) Delayed wound healing Status: Chronic Current Visit: Yes Code(s): T14.8XXD - Other injury of unspecified body region, subsequent encounter Type of Wound Date of Service: 07/22/18 Chief Complaint: Chronic ulcer to the left lower extremity History of Wound: This 62 year old patient returns to the wound healing center for follow up of her chronic ulcer to her left ellison. She did have her venous procedure completed with vascular surgeon, Dr. Machado. She denies pain, fever, chill, nausea, vomiting. She continues with aggressive compression therapy as advised. She denies redness or odor. She uses lymphedema compression pumps as advised. She has been permitted to take more breaks at work and thinks this has significantly helped with swelling reduction. Progress of Wound: improving - Physical Exam Vital Signs Temp Pulse Resp BP 97.7 F L 78 16 135/68 H 07/22/18 15:51 07/22/18 15:51 07/22/18 15:51 07/22/18 15:51 General: Alert, Oriented x3, Cooperative HEENT: Atraumatic Extremities: No cyanosis, Capillary Refill Less than 3 Seconds, No Calf Tenderness - Negative Castillo sign left, Edema, Peripheral Pulses Normal Skin: Ulcer/ Wound - No purulence, erythema, streaking, odor, or infection. Peripheral epithelialization is noted. There is some mild unchanged hyperpigmentation around the ulcer site. The skin is hairless and atrophic. Wound Measurements and Assessment WC - Nurse 1 - General Ulcer Measurement Start: 07/01/18 15:49 Freq: Status: Active Protocol: Activity Type Activity Date Activity User E-Sign Co-Sign Detail Recorded Client Recorded Date Recorded By Document 07/22/18 15:51 [facility] [id number] 07/22/18 15:56 BMF 07/22/18 15:51 Wound Center Nurse 1 [Ulcer Assessment] #3 Left Ellison cluster -Combined with other wound No -Current Size (cm) - Length 1 -Current Size (cm) - Width 0.6 -Current Size (cm) - Depth 0.1 -Total Square Cm 0.6 -Date of Last Picture (Recall this 07/22/18 field) -Photo Taken Yes -Epithelialization Small 1-33% -Tunneling No -Undermining/Tunneling No -Circular Undermining No -Exudate Amt Medium -Exudate Type Serosanguineous -Wound Margin Flat & Intact -Granulation Amt Small (1-33%) -Granulation Quality Red -Slough/Fibrin Yes -Necrosis Amt Large (67-100%) -Necrotic Tissue Type Eschar -Texture (Jenny-wound Skin Appearance) Assessed Scarring -Moisture (Jenny-wound Skin Appearance Assessed ) Dry/Scaly -Color (Jenny-wound Skin Appearance) Assessed -Temperature (Jenny-wound Skin No Abnormality Appearance) (Pt Warm) -Tenderness on Palpation (Jenny-wound No Skin Appearance) -Ulcer Cleansing Wound Cleanser -Foul Odor after Cleansing No [Edema Assessment] -Lower Limb Edema Present Yes -Left Calf (cm) 52.2 -Left Ankle (cm) 28.5 WC - Nurse 2 - General Ulcer CM Notes Start: 07/01/18 15:49 Freq: Status: Active Protocol: Activity Type Activity Date Activity User E-Sign Co-Sign Detail Recorded Client Recorded Date Recorded By Document 07/22/18 16:12 JEFF [id number] 07/22/18 16:14 JEFF 07/22/18 16:12 Wound Center Nurse 2 [Procedure/Treatment] #3 Left Ellison cluster -Time 16:13 -Correct Patient Yes -Correct Side, Site, Position Yes -Correct Procedure Yes -Procedure Performed Yes -Type of Procedure Debridement -Clinical Debridement Subcutaneous -Post Debridement Size (cm) - Length 1.0 -Post Debridement Size (cm) - Width 0.7 -Post Debridement Size (cm) - Depth 0.1 -Total Square Cm 0.70 -Wound/Ulcer Outcome Not Healed -Ulcer Cleansing Rinsed/ Irrigated with Saline -Foul Odor after Cleansing No -Bioengineered Tissue Yes -Type of bioengineered Tissue EPIFIX -Expiration Date 12/29/22 -Product Lot Number [id number] -Percent Used 100 -Saline Lot Number [id number] -Bleeding Controlled with Pressure -Offloading No -Treatment Response Procedure Tolerated Well [See Physician Procedure note for Specifics] Pain Scale: 0-10 Numeric [Pain] -Is Patient Pain Free? Yes Musculoskeletal: No Tenderness to Palpation of Joints or Extremities, Muscle Wasting Neurological: Sensory exam intact to light touch and pain Psych/Mental Status: Normal Affect, Appropriate Debridement Note Post-Debridement Measurements/Treatment WC - Nurse 2 - General Ulcer CM Notes Start: 07/01/18 15:49 Freq: Status: Active Protocol: Activity Type Activity Date Activity User E-Sign Co-Sign Detail Recorded Client Recorded Date Recorded By Document 07/01/18 16:01 JF [id number] 07/01/18 16:02 JF Document 07/09/18 16:18 AN [id number] 07/09/18 16:22 AN Document 07/15/18 16:18 [id number] 07/15/18 16:19 JF Document 07/22/18 16:12 [id number] 07/22/18 16:14 07/01/18 07/09/18 07/15/18 16:01 16:18 16:18 Wound Center Nurse 2 #3 Left Ellison cluster -Time 16:01 16:19 -Correct Patient Yes Yes Yes -Correct Side, Site, Position Yes Yes Yes -Correct Procedure Yes Yes Yes -Procedure Performed Yes Yes Yes -Type of Procedure Debridement Debridement Debridement -Clinical Debridement Subcutaneous Subcutaneous Subcutaneous -Post Debridement Size (cm) - Length 1.6 0.5 0.7 -Post Debridement Size (cm) - Width 1.2 0.7 0.7 -Post Debridement Size (cm) - Depth 0.1 0.1 0.1 -Total Square Cm 1.92 0.35 0.49 -Wound/Ulcer Outcome Not Healed Not Healed Not Healed -Ulcer Cleansing Rinsed/ Rinsed/ Rinsed/ Irrigated with Irrigated with Irrigated with Saline Saline Saline -Foul Odor after Cleansing No No No -Bioengineered Tissue Yes Yes Yes -Type of bioengineered Tissue EPIFIX EPIFIX EPIFIX -Expiration Date 11/29/22 11/29/22 11/29/22 -Product Lot Number [id number] -Percent Used 100 100 100 -Saline Lot Number [id number] -Topical Lidocaine (%) 4 -Bleeding Controlled with Pressure Pressure Pressure -Offloading No No No -Treatment Response Procedure Procedure Procedure Tolerated Well Tolerated Well Tolerated Well Pain Scale: 0-10 Numeric Is Patient Pain Free? Yes Yes Yes 07/22/18 16:12 Wound Center Nurse 2 #3 Left Ellison cluster -Time 16:13 -Correct Patient Yes -Correct Side, Site, Position Yes -Correct Procedure Yes -Procedure Performed Yes -Type of Procedure Debridement -Clinical Debridement Subcutaneous -Post Debridement Size (cm) - Length 1.0 -Post Debridement Size (cm) - Width 0.7 -Post Debridement Size (cm) - Depth 0.1 -Total Square Cm 0.70 -Wound/Ulcer Outcome Not Healed -Ulcer Cleansing Rinsed/ Irrigated with Saline -Foul Odor after Cleansing No -Bioengineered Tissue Yes -Type of bioengineered Tissue EPIFIX -Expiration Date 12/29/22 -Product Lot Number [id number] -Percent Used 100 -Saline Lot Number [id number] -Topical Lidocaine (%) -Bleeding Controlled with Pressure -Offloading No -Treatment Response Procedure Tolerated Well Pain Scale: 0-10 Numeric Is Patient Pain Free? Yes Wound debrided: anterior leg Laterality: Left Type of Debridement: Excisional debridement Anesthesia Used: 5% Lidocaine Gel Depth: in the subcutaneous layer Percentage of wound debrided: 100 Instrument Used: #15 blade Tissue Removed: fibrous, devitalized subcutaneous, biofilm, slough Severity: Fat Layer Exposed Amount of bleeding with debridement: Mild Bleeding Controlled with: Pressure Patient tolerated procedure well Assessment/Plan Active Problems Lymphedema (Chronic) Venous insufficiency (chronic) (peripheral) (Chronic) Delayed wound healing (Chronic) Chronic ulcer of left lower extremity with fat layer exposed (Chronic) Assessment: Chronic and recurrent ulcer to the left ellison. venous insufficiency. h/o DVT to left lower extremity, already treated. lymphedema. non compliance. delayed healing Plan: I reviewed and discussed her case. The ulcer site was debrided today as noted in the clinical panel. To resume nutritional supplementation. She is reassured there are no signs of infection. Her previous venous intervention with Dr. Machado is noted and appreciated. To continue surgery compression dressing; to avoid over tightening strap directly over the ulcer site to avoid pressure. To continue with lymphedema pumps up to twice daily and periodic elevation. To avoid idle standing or sitting. To continue elevation during work breaks; I agree this has helped with ulcer size reduction and edema as well. I recommended application of advanced wound care product, epi fix. This is recommended to optimize healing and is medically necessary. It is necessary for limb salvage. She is amenable after we discussed the indications, planned application, benefits, risks, and anticipated healing time and management. Verbal consent was obtained and the product was applied according to standard protocol. The epi fix was moistened with saline and secured in place with a wound veil and Steri-Strips. A secondary dressing was applied and she was advised to leave this clean and intact until follow-up visit next week. To continue periodic hourly elevation throughout the day. I recommend a nutrition referral to optimize wound healing and reduce edema and weight. She was previously adamant that she will not attend; this is consistent with noncompliance. I explained the purpose and the benefits of this referral. To return to clinic in 1 week at the wound care center or call sooner if questions or concerns. I answered all of her questions today.
--- NOTE | 2018-07-22 17:16 | PN.PCM_ITS ---
(1) Chronic ulcer of left lower extremity with fat layer exposed Status: Chronic Current Visit: Yes Code(s): L97.922 - Non-pressure chronic ulcer of unspecified part of left lower leg with fat layer exposed (2) Lymphedema Status: Chronic Current Visit: Yes Code(s): I89.0 - Lymphedema, not elsewhere classified (3) Venous insufficiency (chronic) (peripheral) Status: Chronic Current Visit: Yes Code(s): I87.2 - Venous insufficiency (chronic) (peripheral) (4) Delayed wound healing Status: Chronic Current Visit: Yes Code(s): T14.8XXD - Other injury of unspecified body region, subsequent encounter Type of Wound Date of Service: 07/22/18 Chief Complaint: Chronic ulcer to the left lower extremity History of Wound: This 62 year old patient returns to the wound healing center for follow up of her chronic ulcer to her left ellison. She did have her venous procedure completed with vascular surgeon, Dr. Machado. She denies pain, fever, chill, nausea, vomiting. She continues with aggressive compression therapy as advised. She denies redness or odor. She uses lymphedema compression pumps as advised. She has been permitted to take more breaks at work and thinks this has significantly helped with swelling reduction. Progress of Wound: improving - Physical Exam Vital Signs Temp Pulse Resp BP 97.7 F L 78 16 135/68 H 07/22/18 15:51 07/22/18 15:51 07/22/18 15:51 07/22/18 15:51 General: Alert, Oriented x3, Cooperative HEENT: Atraumatic Extremities: No cyanosis, Capillary Refill Less than 3 Seconds, No Calf Tenderness - Negative Castillo sign left, Edema, Peripheral Pulses Normal Skin: Ulcer/ Wound - No purulence, erythema, streaking, odor, or infection. Peripheral epithelialization is noted. There is some mild unchanged hyperpigmentation around the ulcer site. The skin is hairless and atrophic. Wound Measurements and Assessment WC - Nurse 1 - General Ulcer Measurement Start: 07/01/18 15:49 Freq: Status: Active Protocol: Activity Type Activity Date Activity User E-Sign Co-Sign Detail Recorded Client Recorded Date Recorded By Document 07/22/18 15:51 [facility] [id number] 07/22/18 15:56 BMF 07/22/18 15:51 Wound Center Nurse 1 [Ulcer Assessment] #3 Left Ellison cluster -Combined with other wound No -Current Size (cm) - Length 1 -Current Size (cm) - Width 0.6 -Current Size (cm) - Depth 0.1 -Total Square Cm 0.6 -Date of Last Picture (Recall this 07/22/18 field) -Photo Taken Yes -Epithelialization Small 1-33% -Tunneling No -Undermining/Tunneling No -Circular Undermining No -Exudate Amt Medium -Exudate Type Serosanguineous -Wound Margin Flat & Intact -Granulation Amt Small (1-33%) -Granulation Quality Red -Slough/Fibrin Yes -Necrosis Amt Large (67-100%) -Necrotic Tissue Type Eschar -Texture (Jenny-wound Skin Appearance) Assessed Scarring -Moisture (Jenny-wound Skin Appearance Assessed ) Dry/Scaly -Color (Jenny-wound Skin Appearance) Assessed -Temperature (Jenny-wound Skin No Abnormality Appearance) (Pt Warm) -Tenderness on Palpation (Jenny-wound No Skin Appearance) -Ulcer Cleansing Wound Cleanser -Foul Odor after Cleansing No [Edema Assessment] -Lower Limb Edema Present Yes -Left Calf (cm) 52.2 -Left Ankle (cm) 28.5 WC - Nurse 2 - General Ulcer CM Notes Start: 07/01/18 15:49 Freq: Status: Active Protocol: Activity Type Activity Date Activity User E-Sign Co-Sign Detail Recorded Client Recorded Date Recorded By Document 07/22/18 16:12 JEFF [id number] 07/22/18 16:14 JEFF 07/22/18 16:12 Wound Center Nurse 2 [Procedure/Treatment] #3 Left Ellison cluster -Time 16:13 -Correct Patient Yes -Correct Side, Site, Position Yes -Correct Procedure Yes -Procedure Performed Yes -Type of Procedure Debridement -Clinical Debridement Subcutaneous -Post Debridement Size (cm) - Length 1.0 -Post Debridement Size (cm) - Width 0.7 -Post Debridement Size (cm) - Depth 0.1 -Total Square Cm 0.70 -Wound/Ulcer Outcome Not Healed -Ulcer Cleansing Rinsed/ Irrigated with Saline -Foul Odor after Cleansing No -Bioengineered Tissue Yes -Type of bioengineered Tissue EPIFIX -Expiration Date 12/29/22 -Product Lot Number [id number] -Percent Used 100 -Saline Lot Number [id number] -Bleeding Controlled with Pressure -Offloading No -Treatment Response Procedure Tolerated Well [See Physician Procedure note for Specifics] Pain Scale: 0-10 Numeric [Pain] -Is Patient Pain Free? Yes Musculoskeletal: No Tenderness to Palpation of Joints or Extremities, Muscle Wasting Neurological: Sensory exam intact to light touch and pain Psych/Mental Status: Normal Affect, Appropriate Debridement Note Post-Debridement Measurements/Treatment WC - Nurse 2 - General Ulcer CM Notes Start: 07/01/18 15:49 Freq: Status: Active Protocol: Activity Type Activity Date Activity User E-Sign Co-Sign Detail Recorded Client Recorded Date Recorded By Document 07/01/18 16:01 JF [id number] 07/01/18 16:02 JF Document 07/09/18 16:18 AN [id number] 07/09/18 16:22 AN Document 07/15/18 16:18 [id number] 07/15/18 16:19 JF Document 07/22/18 16:12 [id number] 07/22/18 16:14 07/01/18 07/09/18 07/15/18 16:01 16:18 16:18 Wound Center Nurse 2 #3 Left Ellison cluster -Time 16:01 16:19 -Correct Patient Yes Yes Yes -Correct Side, Site, Position Yes Yes Yes -Correct Procedure Yes Yes Yes -Procedure Performed Yes Yes Yes -Type of Procedure Debridement Debridement Debridement -Clinical Debridement Subcutaneous Subcutaneous Subcutaneous -Post Debridement Size (cm) - Length 1.6 0.5 0.7 -Post Debridement Size (cm) - Width 1.2 0.7 0.7 -Post Debridement Size (cm) - Depth 0.1 0.1 0.1 -Total Square Cm 1.92 0.35 0.49 -Wound/Ulcer Outcome Not Healed Not Healed Not Healed -Ulcer Cleansing Rinsed/ Rinsed/ Rinsed/ Irrigated with Irrigated with Irrigated with Saline Saline Saline -Foul Odor after Cleansing No No No -Bioengineered Tissue Yes Yes Yes -Type of bioengineered Tissue EPIFIX EPIFIX EPIFIX -Expiration Date 11/29/22 11/29/22 11/29/22 -Product Lot Number [id number] -Percent Used 100 100 100 -Saline Lot Number [id number] -Topical Lidocaine (%) 4 -Bleeding Controlled with Pressure Pressure Pressure -Offloading No No No -Treatment Response Procedure Procedure Procedure Tolerated Well Tolerated Well Tolerated Well Pain Scale: 0-10 Numeric Is Patient Pain Free? Yes Yes Yes 07/22/18 16:12 Wound Center Nurse 2 #3 Left Ellison cluster -Time 16:13 -Correct Patient Yes -Correct Side, Site, Position Yes -Correct Procedure Yes -Procedure Performed Yes -Type of Procedure Debridement -Clinical Debridement Subcutaneous -Post Debridement Size (cm) - Length 1.0 -Post Debridement Size (cm) - Width 0.7 -Post Debridement Size (cm) - Depth 0.1 -Total Square Cm 0.70 -Wound/Ulcer Outcome Not Healed -Ulcer Cleansing Rinsed/ Irrigated with Saline -Foul Odor after Cleansing No -Bioengineered Tissue Yes -Type of bioengineered Tissue EPIFIX -Expiration Date 12/29/22 -Product Lot Number [id number] -Percent Used 100 -Saline Lot Number [id number] -Topical Lidocaine (%) -Bleeding Controlled with Pressure -Offloading No -Treatment Response Procedure Tolerated Well Pain Scale: 0-10 Numeric Is Patient Pain Free? Yes Wound debrided: anterior leg Laterality: Left Type of Debridement: Excisional debridement Anesthesia Used: 5% Lidocaine Gel Depth: in the subcutaneous layer Percentage of wound debrided: 100 Instrument Used: #15 blade Tissue Removed: fibrous, devitalized subcutaneous, biofilm, slough Severity: Fat Layer Exposed Amount of bleeding with debridement: Mild Bleeding Controlled with: Pressure Patient tolerated procedure well Assessment/Plan Active Problems Lymphedema (Chronic) Venous insufficiency (chronic) (peripheral) (Chronic) Delayed wound healing (Chronic) Chronic ulcer of left lower extremity with fat layer exposed (Chronic) Assessment: Chronic and recurrent ulcer to the left ellison. venous insufficiency. h/o DVT to left lower extremity, already treated. lymphedema. non compliance. delayed healing Plan: I reviewed and discussed her case. The ulcer site was debrided today as noted in the clinical panel. To resume nutritional supplementation. She is reassured there are no signs of infection. Her previous venous intervention with Dr. Machado is noted and appreciated. To continue surgery compression dressing; to avoid over tightening strap directly over the ulcer site to avoid pressure. To continue with lymphedema pumps up to twice daily and periodic elevation. To avoid idle standing or sitting. To continue elevation during work breaks; I agree this has helped with ulcer size reduction and edema as well. I recommended application of advanced wound care product, epi fix. This is recommended to optimize healing and is medically necessary. It is necessary for limb salvage. She is amenable after we discussed the indications, planned application, benefits, risks, and anticipated healing time and management. Verbal consent was obtained and the product was applied according to standard protocol. The epi fix was moistened with saline and secured in place with a wound veil and Steri-Strips. A secondary dressing was applied and she was advised to leave this clean and intact until follow-up visit next week. To continue periodic hourly elevation throughout the day. I recommend a nutrition referral to optimize wound healing and reduce edema and weight. She was previously adamant that she will not attend; this is consistent with noncompliance. I explained the purpose and the benefits of this referral. To return to clinic in 1 week at the wound care center or call sooner if questions or concerns. I answered all of her questions today.
== END 2018-07-28 23:59 ==
LOC: WC 16:00
PROVIDERS: Family Provider Internal Medicine; PCP Internal Medicine; Visit Provider Podiatrist
DX: I87.2 Venous insufficiency (chronic) (peripheral) (principal); I89.0 Lymphedema, not elsewhere classified; L97.822 Non-pressure chronic ulcer of other part of left lower leg with fat layer exposed; Z86.718 Personal history of other venous thrombosis and embolism; Z91.19 Patient's noncompliance with other medical treatment and regimen
CPT/HCPCS: 15271; Q4186

== ENCOUNTER 2018-08-26 16:00 | Outpatient (RCR) | payer MEDICAID, SELFPAY ==
[2018-07-29 00:55] VITALS: BP 135/68; PULSE 78; RESP 16; TEMP 36.5
[2018-07-29 15:45] VITALS: BP 149/72; PULSE 84; RESP 16; TEMP 37
--- NOTE | 2018-07-29 16:21 | PCM.WC.PN ---
(1) Chronic ulcer of left lower extremity with fat layer exposed Status: Chronic Current Visit: Yes Code(s): L97.922 - Non-pressure chronic ulcer of unspecified part of left lower leg with fat layer exposed (2) Lymphedema Status: Chronic Current Visit: Yes Code(s): I89.0 - Lymphedema, not elsewhere classified (3) Venous insufficiency (chronic) (peripheral) Status: Chronic Current Visit: Yes Code(s): I87.2 - Venous insufficiency (chronic) (peripheral) (4) Localized edema Status: Chronic Current Visit: Yes Code(s): R60.0 - Localized edema Type of Wound Date of Service: 07/29/18 Chief Complaint: Chronic ulcer to the left lower extremity History of Wound: This 62 year old patient returns to the wound healing center for follow up of her chronic ulcer to her left ellison. She did have her venous procedure completed with vascular surgeon, Dr. Machado. She denies pain, fever, chill, nausea, vomiting. She continues with aggressive compression therapy as advised. She denies redness or odor. She uses lymphedema compression pumps as advised. Her dressing has applied pressure to a new spot on the front of her left leg and there is a new area of drainage. She kept her advance wound care product clean and intact last week. Progress of Wound: improving - Physical Exam Vital Signs Temp Pulse Resp BP 98.6 F 84 16 149/72 H 07/29/18 15:45 07/29/18 15:45 07/29/18 15:45 07/29/18 15:45 General: Alert, Oriented x3, Cooperative Extremities: No cyanosis, Capillary Refill Less than 3 Seconds, No Calf Tenderness - Negative Italo and Castillo left, Diminished Peripheral Pulses, Edema Skin: Ulcer/ Wound - No purulence, erythema measuring, odor, or infection. Peripheral skin is hairless, atrophic, hyperpigmented Wound Measurements and Assessment WC - Nurse 1 - General Ulcer Measurement Start: 07/29/18 15:45 Freq: Status: Active Protocol: Activity Type Activity Date Activity User E-Sign Co-Sign Detail Recorded Client Recorded Date Recorded By Document 07/29/18 15:45 BM [id number] 07/29/18 15:51 BMF 07/29/18 15:45 Wound Center Nurse 1 [Ulcer Assessment] #3 Left Ellison cluster -Combined with other wound No -Current Size (cm) - Length 1.3 -Current Size (cm) - Width 0.8 -Current Size (cm) - Depth 0.1 -Total Square Cm 1.04 -Photo Taken No -Epithelialization None Present -Tunneling No -Undermining/Tunneling No -Circular Undermining No -Exudate Amt Small -Exudate Type Serosanguineous -Wound Margin Distinct, Outline Attached -Granulation Amt None Present (0 %) -Slough/Fibrin Yes -Necrosis Amt Large (67-100%) -Necrotic Tissue Type Eschar -Texture (Chaya-wound Skin Appearance) Assessed Scarring -Moisture (Chaya-wound Skin Appearance Assessed ) Dry/Scaly -Color (Chaya-wound Skin Appearance) Assessed -Temperature (Chaya-wound Skin No Abnormality Appearance) (Pt Warm) -Tenderness on Palpation (Chaya-wound No Skin Appearance) -Ulcer Cleansing Rinsed/ Irrigated with Saline -Foul Odor after Cleansing No -Anesthetic Used 5% Lidocaine Gel [Edema Assessment] -Lower Limb Edema Present Yes -Left Calf (cm) 53.9 -Left Ankle (cm) 28.6 WC - Nurse 2 - General Ulcer CM Notes Start: 07/29/18 15:45 Freq: Status: Active Protocol: Activity Type Activity Date Activity User E-Sign Co-Sign Detail Recorded Client Recorded Date Recorded By Document 07/29/18 16:06 AN [id number] 07/29/18 16:10 AN 07/29/18 16:06 Wound Center Nurse 2 [Procedure/Treatment] #4 left lower leg medial -Time 16:10 -Correct Patient Yes -Correct Side, Site, Position Yes -Correct Procedure Yes -Procedure Performed Yes -Type of Procedure Debridement -Clinical Debridement Subcutaneous -Post Debridement Size (cm) - Length 1.4 -Post Debridement Size (cm) - Width 0.9 -Post Debridement Size (cm) - Depth 0.1 -Total Square Cm 1.26 -Wound/Ulcer Outcome Not Healed -Ulcer Cleansing Rinsed/ Irrigated with Saline -Foul Odor after Cleansing No -Bleeding Controlled with Pressure -Treatment Response Procedure Tolerated Well [See Physician Procedure note for Specifics] Pain Scale: 0-10 Numeric [Pain] -Is Patient Pain Free? Yes Musculoskeletal: No Tenderness to Palpation of Joints or Extremities, Muscle Wasting Neurological: - - Lack of sensation light touch chaya-ulcer site Psych/Mental Status: Normal Affect, Appropriate Debridement Note Post-Debridement Measurements/Treatment WC - Nurse 2 - General Ulcer CM Notes Start: 07/29/18 15:45 Freq: Status: Active Protocol: Activity Type Activity Date Activity User E-Sign Co-Sign Detail Recorded Client Recorded Date Recorded By Document 07/29/18 16:06 AN [id number] 07/29/18 16:10 AN 07/29/18 16:06 Wound Center Nurse 2 #4 left lower leg medial -Time 16:10 -Correct Patient Yes -Correct Side, Site, Position Yes -Correct Procedure Yes -Procedure Performed Yes -Type of Procedure Debridement -Clinical Debridement Subcutaneous -Post Debridement Size (cm) - Length 1.4 -Post Debridement Size (cm) - Width 0.9 -Post Debridement Size (cm) - Depth 0.1 -Total Square Cm 1.26 -Wound/Ulcer Outcome Not Healed -Ulcer Cleansing Rinsed/ Irrigated with Saline -Foul Odor after Cleansing No -Bleeding Controlled with Pressure -Treatment Response Procedure Tolerated Well Pain Scale: 0-10 Numeric Is Patient Pain Free? Yes Wound debrided: leg anterior (new ulcer) more medial location anterior leg Laterality: Left Type of Debridement: Excisional debridement Anesthesia Used: 5% Lidocaine Gel Depth: in the subcutaneous layer Percentage of wound debrided: 100 Instrument Used: #15 blade Tissue Removed: fibrous, devitalized subcutaneous, biofilm, slough Severity: Fat Layer Exposed Amount of bleeding with debridement: Mild Bleeding Controlled with: Pressure Patient tolerated procedure well Assessment/Plan Active Problems Lymphedema (Chronic) Venous insufficiency (chronic) (peripheral) (Chronic) Localized edema (Chronic) Chronic ulcer of left lower extremity with fat layer exposed (Chronic) Assessment: Chronic and recurrent ulcer to the left ellison -healed. New ulcer with fat layer exposed anterior central medial left ellison, no infection. venous insufficiency. h/o DVT to left lower extremity, already treated. lymphedema. non compliance. delayed healing Plan: I reviewed and discussed her case. The ulcer site was debrided today as noted in the clinical panel. To resume nutritional supplementation. She is reassured there are no signs of infection. Her previous venous intervention with Dr. Machado is noted and appreciated. To continue surgery compression dressing; to avoid over tightening strap directly over the ulcer site to avoid pressure. We will also plan additional abdominal pad over this area to protect this fragile skin. To continue with lymphedema pumps up to twice daily and periodic elevation. To avoid idle standing or sitting. To continue elevation during work breaks; I agree this has helped with ulcer size reduction and edema as well. To change dressing daily with hydrogel and Adaptic. To continue periodic hourly elevation throughout the day. I recommend a nutrition referral to optimize wound healing and reduce edema and weight. She was previously adamant that she will not attend; this is consistent with noncompliance. I explained the purpose and the benefits of this referral. To return to clinic in 1 week at the wound care center or call sooner if questions or concerns. I answered all of her questions today.
[2018-08-05 15:48] VITALS: BP 127/67; PULSE 64; RESP 18; TEMP 36.1
--- NOTE | 2018-08-05 17:20 | PCM.WC.PN ---
(1) Chronic ulcer of left lower extremity with fat layer exposed Status: Chronic Current Visit: Yes Code(s): L97.922 - Non-pressure chronic ulcer of unspecified part of left lower leg with fat layer exposed (2) Lymphedema Status: Chronic Current Visit: Yes Code(s): I89.0 - Lymphedema, not elsewhere classified (3) Venous insufficiency (chronic) (peripheral) Status: Chronic Current Visit: Yes Code(s): I87.2 - Venous insufficiency (chronic) (peripheral) (4) Localized edema Status: Chronic Current Visit: Yes Code(s): R60.0 - Localized edema Type of Wound Date of Service: 08/05/18 Chief Complaint: Chronic ulcer to the left lower extremity History of Wound: This 62 year old patient returns to the wound healing center for follow up of her chronic ulcer to her left ellison. She did have her venous procedure completed with vascular surgeon, Dr. Machado. She denies pain, fever, chill, nausea, vomiting. She continues with aggressive compression therapy as advised. She denies redness or odor. She uses lymphedema compression pumps as advised. She kept her advance wound care product clean and intact last week. Progress of Wound: improving - Physical Exam Vital Signs Temp Pulse Resp BP 97 F L 64 18 127/67 H 08/05/18 15:48 08/05/18 15:48 08/05/18 15:48 08/05/18 15:48 General: Alert, Oriented x3, Cooperative Extremities: No cyanosis, Capillary Refill Less than 3 Seconds, No Calf Tenderness - Negative palencia sign left, Diminished Peripheral Pulses, Edema - Bilateral lower extremities Skin: Ulcer/ Wound - No purulence, erythema nursing, odor, or acute infection. The skin is very atrophic and hypopigmented around the ulcer site. Wound Measurements and Assessment WC - Nurse 1 - General Ulcer Measurement Start: 07/29/18 15:45 Freq: Status: Active Protocol: Activity Type Activity Date Activity User E-Sign Co-Sign Detail Recorded Client Recorded Date Recorded By Document 08/05/18 15:48 RB [id number] 08/05/18 15:50 RB 08/05/18 15:48 Wound Center Nurse 1 [Ulcer Assessment] #4 left lower leg medial -Combined with other wound No -Current Size (cm) - Length 0.4 -Current Size (cm) - Width 0.3 -Current Size (cm) - Depth 0.1 -Total Square Cm 0.12 -Tunneling No -Undermining/Tunneling No -Circular Undermining No -Exudate Amt Small -Exudate Type Serosanguineous -Wound Margin Distinct, Outline Attached -Granulation Amt Large (67-100%) -Granulation Quality [place] -Slough/Fibrin Yes -Necrosis Amt Small (1-33%) -Necrotic Tissue Type Adherent Slough -Structure Exposed N/A -Texture (Jenny-wound Skin Appearance) Assessed -Moisture (Jenny-wound Skin Appearance Assessed ) -Color (Jenny-wound Skin Appearance) Hemosiderin Staining -Temperature (Jenny-wound Skin No Abnormality Appearance) (Pt Warm) -Tenderness on Palpation (Jenny-wound No Skin Appearance) -Ulcer Cleansing Wound Cleanser -Foul Odor after Cleansing No -Anesthetic Used 5% Lidocaine Gel [Edema Assessment] -Lower Limb Edema Present Yes -Left Calf (cm) 51.8 -Left Ankle (cm) 28.5 WC - Nurse 2 - General Ulcer CM Notes Start: 07/29/18 15:45 Freq: Status: Active Protocol: Activity Type Activity Date Activity User E-Sign Co-Sign Detail Recorded Client Recorded Date Recorded By Document 08/05/18 16:59 JF [id number] 08/05/18 17:01 08/05/18 16:59 Wound Center Nurse 2 [Procedure/Treatment] #4 left lower leg medial -Time 17:00 -Correct Patient Yes -Correct Side, Site, Position Yes -Correct Procedure Yes -Procedure Performed Yes -Type of Procedure Debridement -Clinical Debridement Subcutaneous -Post Debridement Size (cm) - Length 0.4 -Post Debridement Size (cm) - Width 0.4 -Post Debridement Size (cm) - Depth 0.1 -Total Square Cm 0.16 -Wound/Ulcer Outcome Not Healed -Ulcer Cleansing Rinsed/ Irrigated with Saline -Foul Odor after Cleansing No -Bioengineered Tissue Yes -Type of bioengineered Tissue EPIFIX -Expiration Date 01/29/23 -Product Lot Number [id number] -Percent Used 100 -Saline Lot Number [id number] -Bleeding Controlled with Pressure -Offloading No -Treatment Response Procedure Tolerated Well [See Physician Procedure note for Specifics] Pain Scale: 0-10 Numeric [Pain] -Is Patient Pain Free? Yes Musculoskeletal: No Tenderness to Palpation of Joints or Extremities, Muscle Wasting Neurological: - - Ulcer sensation ulcer site with light touch and debridement Psych/Mental Status: Normal Affect, Appropriate Debridement Note Post-Debridement Measurements/Treatment WC - Nurse 2 - General Ulcer CM Notes Start: 07/29/18 15:45 Freq: Status: Active Protocol: Activity Type Activity Date Activity User E-Sign Co-Sign Detail Recorded Client Recorded Date Recorded By Document 07/29/18 16:06 AN [id number] 07/29/18 16:10 AN Document 08/05/18 16:59 JF [id number] 08/05/18 17:01 JF 07/29/18 08/05/18 16:06 16:59 Wound Center Nurse 2 #4 left lower leg medial -Time 16:10 17:00 -Correct Patient Yes Yes -Correct Side, Site, Position Yes Yes -Correct Procedure Yes Yes -Procedure Performed Yes Yes -Type of Procedure Debridement Debridement -Clinical Debridement Subcutaneous Subcutaneous -Post Debridement Size (cm) - Length 1.4 0.4 -Post Debridement Size (cm) - Width 0.9 0.4 -Post Debridement Size (cm) - Depth 0.1 0.1 -Total Square Cm 1.26 0.16 -Wound/Ulcer Outcome Not Healed Not Healed -Ulcer Cleansing Rinsed/ Rinsed/ Irrigated with Irrigated with Saline Saline -Foul Odor after Cleansing No No -Bioengineered Tissue Yes -Type of bioengineered Tissue EPIFIX -Expiration Date 01/29/23 -Product Lot Number [id number] -Percent Used 100 -Saline Lot Number [id number] -Bleeding Controlled with Pressure Pressure -Offloading No -Treatment Response Procedure Procedure Tolerated Well Tolerated Well Pain Scale: 0-10 Numeric Is Patient Pain Free? Yes Yes Wound debrided: anterior leg Laterality: Left Type of Debridement: Excisional debridement Anesthesia Used: 5% Lidocaine Gel Depth: in the subcutaneous layer Percentage of wound debrided: 100 Instrument Used: #15 blade Tissue Removed: fibrous, devitalized subcutaneous, biofilm, slough Severity: Fat Layer Exposed Amount of bleeding with debridement: Mild Bleeding Controlled with: Pressure Patient tolerated procedure well Assessment/Plan Active Problems Lymphedema (Chronic) Venous insufficiency (chronic) (peripheral) (Chronic) Localized edema (Chronic) Chronic ulcer of left lower extremity with fat layer exposed (Chronic) Assessment: Chronic and recurrent ulcer to the left ellison -healed. New ulcer with fat layer exposed anterior central medial left ellison, no infection and improving. venous insufficiency. h/o DVT to left lower extremity, already treated. lymphedema. non compliance. delayed healing Plan: I reviewed and discussed her case. The ulcer site was debrided today as noted in the clinical panel. To resume nutritional supplementation. She is reassured there are no signs of infection. Her previous venous intervention with Dr. Machado is noted and appreciated. To continue surgery compression dressing; to avoid over tightening strap directly over the ulcer site to avoid pressure. A new application technique was reviewed with Raegan because she has been placing this circumferentially which could be contributing to her recurrent new ulcer formation in this zone. Recommend taper over a larger location and incorporating an abdominal pad and this to avoid dressing singletary. To continue with lymphedema pumps up to twice daily and periodic elevation. To avoid idle standing or sitting. To continue elevation during work breaks; I agree this has helped with ulcer size reduction and edema as well. Advance wound care product, epi fix was applied according to standard protocol today. Indications were discussed. Verbal consent was obtained and she tolerated this well. Epi fix was secured with a wound veil and Steri-Strips. She will keep this clean dry and intact until follow-up next week. To continue periodic hourly elevation throughout the day. I recommend a nutrition referral to optimize wound healing and reduce edema and weight. She was previously adamant that she will not attend; this is consistent with noncompliance. I explained the purpose and the benefits of this referral. To return to clinic in 1 week at the wound care center or call sooner if questions or concerns. I answered all of her questions today.
[2018-08-12 16:01] VITALS: BP 154/78; PULSE 70; RESP 18; TEMP 36.6
--- NOTE | 2018-08-12 17:37 | PCM.WC.PN ---
(1) Chronic ulcer of left lower extremity with fat layer exposed Status: Chronic Code(s): L97.922 - Non-pressure chronic ulcer of unspecified part of left lower leg with fat layer exposed (2) Lymphedema Status: Chronic Code(s): I89.0 - Lymphedema, not elsewhere classified (3) Venous insufficiency (chronic) (peripheral) Status: Chronic Code(s): I87.2 - Venous insufficiency (chronic) (peripheral) (4) Localized edema Status: Chronic Code(s): R60.0 - Localized edema Type of Wound Date of Service: 08/12/18 Chief Complaint: Chronic ulcer to the left lower extremity History of Wound: This 63 year old patient returns to the wound healing center for follow up of her chronic ulcer to her left ellison. She did have her venous procedure completed with vascular surgeon, Dr. Machado. She denies pain, fever, chill, nausea, vomiting. She continues with aggressive compression therapy as advised. She denies redness or odor. She uses lymphedema compression pumps as advised. Progress of Wound: improving - Physical Exam Vital Signs Temp Pulse Resp BP 97.8 F 70 18 154/78 H 08/12/18 16:01 08/12/18 16:01 08/12/18 16:01 08/12/18 16:01 General: Alert, Oriented x3, Cooperative Extremities: No cyanosis, Capillary Refill Less than 3 Seconds, No Calf Tenderness - negative tonya and palencia signs, Diminished Peripheral Pulses, Edema Skin: Ulcer/ Wound - no purulence, no erythema, no streaking, no odor, no infection noted. peripheral skin is hairless and atrophic with hyperpigmentation Wound Measurements and Assessment WC - Nurse 1 - General Ulcer Measurement Start: 07/29/18 15:45 Freq: Status: Active Protocol: Activity Type Activity Date Activity User E-Sign Co-Sign Detail Recorded Client Recorded Date Recorded By Document 08/12/18 16:01 KEITH [id number] 08/12/18 16:05 DL 08/12/18 16:01 Wound Center Nurse 1 [Ulcer Assessment] #4 left lower leg medial -Current Size (cm) - Length 0.4 -Current Size (cm) - Width 0.3 -Current Size (cm) - Depth 0.1 -Total Square Cm 0.12 -Photo Taken No -Exudate Amt Small -Exudate Type Serosanguineous -Wound Margin Distinct, Outline Attached -Granulation Amt Large (67-100%) -Granulation Quality [place] -Necrosis Amt None Present (0 %) -Structure Exposed N/A -Texture (Jenny-wound Skin Appearance) Scarring -Moisture (Jenny-wound Skin Appearance Dry/Scaly ) -Color (Jenny-wound Skin Appearance) Hemosiderin Staining -Temperature (Jenny-wound Skin No Abnormality Appearance) (Pt Warm) -Tenderness on Palpation (Jenny-wound No Skin Appearance) -Ulcer Cleansing Wound Cleanser -Foul Odor after Cleansing No -Anesthetic Used 5% Lidocaine Gel [Edema Assessment] -Left Calf (cm) 47.4 -Left Ankle (cm) 27 WC - Nurse 2 - General Ulcer CM Notes Start: 07/29/18 15:45 Freq: Status: Active Protocol: Activity Type Activity Date Activity User E-Sign Co-Sign Detail Recorded Client Recorded Date Recorded By Document 08/12/18 17:20 AN [id number] 08/12/18 17:21 AN 08/12/18 17:20 Wound Center Nurse 2 [Procedure/Treatment] #4 left lower leg medial -Time 17:21 -Correct Patient Yes -Correct Side, Site, Position Yes -Correct Procedure Yes -Procedure Performed Yes -Type of Procedure Debridement -Clinical Debridement Subcutaneous -Post Debridement Size (cm) - Length 0.5 -Post Debridement Size (cm) - Width 0.4 -Post Debridement Size (cm) - Depth 0.1 -Total Square Cm 0.20 -Wound/Ulcer Outcome Not Healed -Ulcer Cleansing Rinsed/ Irrigated with Saline -Foul Odor after Cleansing No -Bleeding Controlled with Pressure -Offloading Yes -Type of Offloading Surgical Shoe -Treatment Response Procedure Tolerated Well [See Physician Procedure note for Specifics] Musculoskeletal: No Tenderness to Palpation of Joints or Extremities, Muscle Wasting Neurological: Sensory exam intact to light touch and pain Psych/Mental Status: Normal Affect, Appropriate Debridement Note Post-Debridement Measurements/Treatment WC - Nurse 2 - General Ulcer CM Notes Start: 07/29/18 15:45 Freq: Status: Active Protocol: Activity Type Activity Date Activity User E-Sign Co-Sign Detail Recorded Client Recorded Date Recorded By Document 07/29/18 16:06 AN [id number] 07/29/18 16:10 AN Document 08/05/18 16:59 JF [id number] 08/05/18 17:01 JF Document 08/12/18 17:20 AN [id number] 08/12/18 17:21 AN 07/29/18 08/05/18 08/12/18 16:06 16:59 17:20 Wound Center Nurse 2 #4 left lower leg medial -Time 16:10 17:00 17:21 -Correct Patient Yes Yes Yes -Correct Side, Site, Position Yes Yes Yes -Correct Procedure Yes Yes Yes -Procedure Performed Yes Yes Yes -Type of Procedure Debridement Debridement Debridement -Clinical Debridement Subcutaneous Subcutaneous Subcutaneous -Post Debridement Size (cm) - Length 1.4 0.4 0.5 -Post Debridement Size (cm) - Width 0.9 0.4 0.4 -Post Debridement Size (cm) - Depth 0.1 0.1 0.1 -Total Square Cm 1.26 0.16 0.20 -Wound/Ulcer Outcome Not Healed Not Healed Not Healed -Ulcer Cleansing Rinsed/ Rinsed/ Rinsed/ Irrigated with Irrigated with Irrigated with Saline Saline Saline -Foul Odor after Cleansing No No No -Bioengineered Tissue Yes -Type of bioengineered Tissue EPIFIX -Expiration Date 01/29/23 -Product Lot Number [id number] -Percent Used 100 -Saline Lot Number [id number] -Bleeding Controlled with Pressure Pressure Pressure -Offloading No Yes -Type of Offloading Surgical Shoe -Treatment Response Procedure Procedure Procedure Tolerated Well Tolerated Well Tolerated Well Pain Scale: 0-10 Numeric Is Patient Pain Free? Yes Yes Wound debrided: antrerior ellison Laterality: Left Type of Debridement: Excisional debridement Anesthesia Used: 5% Lidocaine Gel Depth: in the subcutaneous layer Percentage of wound debrided: 100 Instrument Used: #15 blade Tissue Removed: fibrous, devitalized subcutaneous, biofillm ,slough Severity: Fat Layer Exposed Amount of bleeding with debridement: Mild Bleeding Controlled with: Pressure Patient tolerated procedure well Assessment/Plan Assessment: Chronic and recurrent ulcer to the left ellison -healed. New ulcer with fat layer exposed anterior central medial left ellison, no infection and improving. venous insufficiency. h/o DVT to left lower extremity, already treated. lymphedema. non compliance. delayed healing Plan: I reviewed and discussed her case. The ulcer site was debrided today as noted in the clinical panel. To resume nutritional supplementation. She is reassured there are no signs of infection. Her previous venous intervention with Dr. Machado is noted and appreciated. To continue surgery compression dressing; to avoid over tightening strap directly over the ulcer site to avoid pressure. A new application technique was reviewed with Raegan because she has been placing this circumferentially which could be contributing to her recurrent new ulcer formation in this zone. Recommend taper over a larger location and incorporating an abdominal pad and this to avoid dressing singletary. To continue with lymphedema pumps up to twice daily and periodic elevation. To avoid idle standing or sitting. To continue elevation during work breaks; I agree this has helped with ulcer size reduction and edema as well. Advance wound care product, epi fix was applied according to standard protocol today. Indications were discussed. Verbal consent was obtained and she tolerated this well. Epi fix was secured with a wound veil and Steri-Strips. She will keep this clean dry and intact until follow-up next week. To continue periodic hourly elevation throughout the day. I recommend a nutrition referral to optimize wound healing and reduce edema and weight. She was previously adamant that she will not attend; this is consistent with noncompliance. I explained the purpose and the benefits of this referral. To return to clinic in 1 week at the wound care center or call sooner if questions or concerns. I answered all of her questions today.
[2018-08-19 15:37] VITALS: BP 139/69; PULSE 74; RESP 18; TEMP 36.4
--- NOTE | 2018-08-19 16:28 | PCM.WC.PN ---
(1) Chronic ulcer of left lower extremity with fat layer exposed Status: Chronic Current Visit: Yes Code(s): L97.922 - Non-pressure chronic ulcer of unspecified part of left lower leg with fat layer exposed (2) Lymphedema Status: Chronic Current Visit: Yes Code(s): I89.0 - Lymphedema, not elsewhere classified (3) Venous insufficiency (chronic) (peripheral) Status: Chronic Current Visit: Yes Code(s): I87.2 - Venous insufficiency (chronic) (peripheral) (4) Localized edema Status: Chronic Current Visit: Yes Code(s): R60.0 - Localized edema Type of Wound Date of Service: 08/19/18 Chief Complaint: Chronic ulcer to the left lower extremity History of Wound: This 63 year old patient returns to the wound healing center for follow up of her chronic ulcer to her left ellison. She did have her venous procedure completed with vascular surgeon, Dr. Machado. She denies pain, fever, chill, nausea, vomiting. She continues with aggressive compression therapy as advised. She denies redness or odor. She uses lymphedema compression pumps as advised. Progress of Wound: Stable - Physical Exam Vital Signs Temp Pulse Resp BP 97.6 F L 74 18 139/69 H 08/19/18 15:37 08/19/18 15:37 08/19/18 15:37 08/19/18 15:37 General: Alert, Oriented x3, Cooperative Extremities: No cyanosis, Capillary Refill Less than 3 Seconds, No Calf Tenderness - Negative Italo and Castillo, Diminished Peripheral Pulses, Edema - Lymphedema lower extremities Skin: Ulcer/ Wound - No purulence, erythema, streaking, odor, or infection. No deep tissue exposure. Wound Measurements and Assessment WC - Nurse 1 - General Ulcer Measurement Start: 07/29/18 15:45 Freq: Status: Active Protocol: Activity Type Activity Date Activity User E-Sign Co-Sign Detail Recorded Client Recorded Date Recorded By Document 08/19/18 15:37 MI [id number] 08/19/18 15:41 MI 08/19/18 15:37 Wound Center Nurse 1 [Ulcer Assessment] #4 left lower leg medial -Current Size (cm) - Length 1.2 -Current Size (cm) - Width 0.7 -Current Size (cm) - Depth 0.1 -Total Square Cm 0.84 -Exudate Amt Small -Exudate Type Serosanguineous -Wound Margin Flat & Intact -Granulation Amt Large (67-100%) -Granulation Quality Pale [place] -Slough/Fibrin No -Texture (Jenny-wound Skin Appearance) Assessed -Moisture (Jenny-wound Skin Appearance Assessed ) -Color (Jenny-wound Skin Appearance) Assessed Hemosiderin Staining -Temperature (Jenny-wound Skin No Abnormality Appearance) (Pt Warm) -Tenderness on Palpation (Jenny-wound No Skin Appearance) -Ulcer Cleansing Rinsed/ Irrigated with Saline -Foul Odor after Cleansing No -Anesthetic Used 4% Lidocaine Solution [Edema Assessment] -Left Calf (cm) 50.5 -Left Ankle (cm) 28 WC - Nurse 2 - General Ulcer CM Notes Start: 07/29/18 15:45 Freq: Status: Active Protocol: Activity Type Activity Date Activity User E-Sign Co-Sign Detail Recorded Client Recorded Date Recorded By Document 08/19/18 16:24 JEFF [id number] 08/19/18 16:25 08/19/18 16:24 Wound Center Nurse 2 [Procedure/Treatment] #4 left lower leg medial -Time 16:25 -Correct Patient Yes -Correct Side, Site, Position Yes -Correct Procedure Yes -Procedure Performed Yes -Type of Procedure Debridement -Clinical Debridement Subcutaneous -Post Debridement Size (cm) - Length 1.0 -Post Debridement Size (cm) - Width 0.8 -Post Debridement Size (cm) - Depth 0.1 -Total Square Cm 0.80 -Wound/Ulcer Outcome Not Healed -Ulcer Cleansing Rinsed/ Irrigated with Saline -Foul Odor after Cleansing No -Bioengineered Tissue No -Bleeding Controlled with Pressure -Offloading No -Treatment Response Procedure Tolerated Well [See Physician Procedure note for Specifics] Pain Scale: 0-10 Numeric [Pain] -Is Patient Pain Free? Yes Musculoskeletal: No Tenderness to Palpation of Joints or Extremities, Muscle Wasting Neurological: - - Lack of normal epicritic sensation to light touch at ulcer site Psych/Mental Status: Normal Affect, Appropriate Debridement Note Post-Debridement Measurements/Treatment - Nurse 2 - General Ulcer CM Notes Start: 07/29/18 15:45 Freq: Status: Active Protocol: Activity Type Activity Date Activity User E-Sign Co-Sign Detail Recorded Client Recorded Date Recorded By Document 07/29/18 16:06 AN [id number] 07/29/18 16:10 AN Document 08/05/18 16:59 JF [id number] 08/05/18 17:01 JF Document 08/12/18 17:20 AN [id number] 08/12/18 17:21 AN Document 08/19/18 16:24 JF [id number] 08/19/18 16:25 JF 07/29/18 08/05/18 08/12/18 16:06 16:59 17:20 Wound Center Nurse 2 #4 left lower leg medial -Time 16:10 17:00 17:21 -Correct Patient Yes Yes Yes -Correct Side, Site, Position Yes Yes Yes -Correct Procedure Yes Yes Yes -Procedure Performed Yes Yes Yes -Type of Procedure Debridement Debridement Debridement -Clinical Debridement Subcutaneous Subcutaneous Subcutaneous -Post Debridement Size (cm) - Length 1.4 0.4 0.5 -Post Debridement Size (cm) - Width 0.9 0.4 0.4 -Post Debridement Size (cm) - Depth 0.1 0.1 0.1 -Total Square Cm 1.26 0.16 0.20 -Wound/Ulcer Outcome Not Healed Not Healed Not Healed -Ulcer Cleansing Rinsed/ Rinsed/ Rinsed/ Irrigated with Irrigated with Irrigated with Saline Saline Saline -Foul Odor after Cleansing No No No -Bioengineered Tissue Yes -Type of bioengineered Tissue EPIFIX -Expiration Date 01/29/23 -Product Lot Number [id number] -Percent Used 100 -Saline Lot Number [id number] -Bleeding Controlled with Pressure Pressure Pressure -Offloading No No -Treatment Response Procedure Procedure Procedure Tolerated Well Tolerated Well Tolerated Well Pain Scale: 0-10 Numeric Is Patient Pain Free? Yes Yes 08/19/18 16:24 Wound Center Nurse 2 #4 left lower leg medial -Time 16:25 -Correct Patient Yes -Correct Side, Site, Position Yes -Correct Procedure Yes -Procedure Performed Yes -Type of Procedure Debridement -Clinical Debridement Subcutaneous -Post Debridement Size (cm) - Length 1.0 -Post Debridement Size (cm) - Width 0.8 -Post Debridement Size (cm) - Depth 0.1 -Total Square Cm 0.80 -Wound/Ulcer Outcome Not Healed -Ulcer Cleansing Rinsed/ Irrigated with Saline -Foul Odor after Cleansing No -Bioengineered Tissue No -Type of bioengineered Tissue -Expiration Date -Product Lot Number -Percent Used -Saline Lot Number -Bleeding Controlled with Pressure -Offloading No -Treatment Response Procedure Tolerated Well Pain Scale: 0-10 Numeric Is Patient Pain Free? Yes Wound debrided: anterior leg Laterality: Left Type of Debridement: Excisional debridement Anesthesia Used: 5% Lidocaine Gel Depth: in the subcutaneous layer Percentage of wound debrided: 100 Instrument Used: #15 blade Tissue Removed: fibrous, devitalized subcutaneous, biofilm, slough Severity: Fat Layer Exposed Amount of bleeding with debridement: Mild Bleeding Controlled with: Pressure Patient tolerated procedure well Assessment/Plan Active Problems Lymphedema (Chronic) Venous insufficiency (chronic) (peripheral) (Chronic) Localized edema (Chronic) Chronic ulcer of left lower extremity with fat layer exposed (Chronic) Assessment: Chronic and recurrent ulcer to the left ellison -healed. Newer ulcer with fat layer exposed anterior central medial left ellison, no infection and improving. venous insufficiency. h/o DVT to left lower extremity, already treated. lymphedema. non compliance. delayed healing Plan: I reviewed and discussed her case. The ulcer site was debrided today as noted in the clinical panel. To resume nutritional supplementation. She is reassured there are no signs of infection. Her previous venous intervention with Dr. Machado is noted and appreciated. To continue surgery compression dressing; to avoid over tightening strap directly over the ulcer site to avoid pressure. To continue with lymphedema pumps up to twice daily and periodic elevation. To avoid idle standing or sitting. To continue elevation during work breaks; I agree this has helped with ulcer size reduction and edema as well. It is noted she is completed a course of advanced wound healing product, epi fix. She was also previously denied coverage for other advanced wound healing product, reGranix. Indications were discussed. She will change her dressing daily at home. To continue periodic hourly elevation throughout the day. I recommend a nutrition referral to optimize wound healing and reduce edema and weight. She was previously adamant that she will not attend; this is consistent with noncompliance. I explained the purpose and the benefits of this referral. To return to clinic in 1 week at the wound care center or call sooner if questions or concerns. I answered all of her questions today.
[2018-09-23 16:42] VITALS: BP 144/82; PULSE 77; RESP 18; TEMP 36.4
== END 2018-08-28 23:59 ==
LOC: WC 16:00
PROVIDERS: Family Provider Internal Medicine; PCP Internal Medicine; Visit Provider Podiatrist
DX: I87.2 Venous insufficiency (chronic) (peripheral) (principal); I89.0 Lymphedema, not elsewhere classified; L97.822 Non-pressure chronic ulcer of other part of left lower leg with fat layer exposed; R60.0 Localized edema; Z86.718 Personal history of other venous thrombosis and embolism; Z91.19 Patient's noncompliance with other medical treatment and regimen
CPT/HCPCS: 11042; 15271; Q4186

== ENCOUNTER 2018-09-23 17:16 | Outpatient (RCR) | payer MEDICAID, SELFPAY ==
[2018-08-29 00:41] VITALS: BP 139/69; PULSE 74; RESP 18; TEMP 36.4
--- NOTE | 2018-09-23 16:42 | PN.PCM_ITS ---
(1) Chronic ulcer of left lower extremity with fat layer exposed Status: Chronic Code(s): L97.922 - Non-pressure chronic ulcer of unspecified part of left lower leg with fat layer exposed (2) Lymphedema Status: Chronic Code(s): I89.0 - Lymphedema, not elsewhere classified (3) Venous insufficiency (chronic) (peripheral) Status: Chronic Code(s): I87.2 - Venous insufficiency (chronic) (peripheral) (4) Delayed wound healing Status: Chronic Code(s): T14.8 - Other injury of unspecified body region (5) Malnutrition Status: Chronic Code(s): E46 - Unspecified protein-calorie malnutrition Type of Wound Date of Service: 09/23/18 Chief Complaint: Chronic ulcer to the left lower extremity History of Wound: This 63 year old patient returns to the wound healing center for follow up of her chronic ulcer to her left ellison. she has missed several appointments. She did have her venous procedure completed with vascular surgeon, Dr. Machado. She denies pain, fever, chill, nausea, vomiting. She continues with aggressive compression therapy as advised. She denies redness or odor. She uses lymphedema compression pumps as advised. Progress of Wound: worse - Physical Exam Vital Signs Temp Pulse Resp BP 97.6 F L 74 18 139/69 H 08/29/18 00:41 08/29/18 00:41 08/29/18 00:41 08/29/18 00:41 General: Alert, Oriented x3, Cooperative, No apparent distress Extremities: No cyanosis, Capillary Refill Less than 3 Seconds, No Calf Tenderness - negative tonya and palencia signs bilateral, Diminished Peripheral Pulses, Edema Skin: Ulcer/ Wound - no purulence, no erythema, no streaking, no infection noted , - - atrophic peripheral skin Wound Measurements and Assessment WC - Nurse 1 - General Ulcer Measurement Start: 09/23/18 16:17 Freq: Status: Active Protocol: Activity Type Activity Date Activity User E-Sign Co-Sign Detail Recorded Client Recorded Date Recorded By Document 09/23/18 16:40 JEFF [id number] 09/23/18 16:41 JEFF 09/23/18 16:40 Wound Center Nurse 1 [Edema Assessment] -Lower Limb Edema Present Yes -Left Calf (cm) 52.5 -Left Ankle (cm) 28.0 WC - Nurse 2 - General Ulcer CM Notes Start: 09/23/18 16:17 Freq: Status: Active Protocol: Activity Type Activity Date Activity User E-Sign Co-Sign Detail Recorded Client Recorded Date Recorded By Document 09/23/18 16:38 [id number] 09/23/18 16:39 09/23/18 16:38 Wound Center Nurse 2 [Procedure/Treatment] #4 left lower leg medial -Time 16:39 -Correct Patient Yes -Correct Side, Site, Position Yes -Correct Procedure Yes -Procedure Performed Yes -Type of Procedure Debridement -Clinical Debridement Subcutaneous -Post Debridement Size (cm) - Length 2.5 -Post Debridement Size (cm) - Width 2 -Post Debridement Size (cm) - Depth 0.2 -Total Square Cm 5.0 -Wound/Ulcer Outcome Not Healed -Ulcer Cleansing Rinsed/ Irrigated with Saline -Foul Odor after Cleansing No -Bioengineered Tissue No -Bleeding Controlled with Pressure -Offloading No -Treatment Response Procedure Tolerated Well [See Physician Procedure note for Specifics] Pain Scale: 0-10 Numeric [Pain] -Is Patient Pain Free? Yes Musculoskeletal: No Tenderness to Palpation of Joints or Extremities, Muscle Wasting Neurological: Sensory exam intact to light touch and pain Psych/Mental Status: Normal Affect, Appropriate Debridement Note Post-Debridement Measurements/Treatment WC - Nurse 2 - General Ulcer CM Notes Start: 09/23/18 16:17 Freq: Status: Active Protocol: Activity Type Activity Date Activity User E-Sign Co-Sign Detail Recorded Client Recorded Date Recorded By Document 09/23/18 16:38 [id number] 09/23/18 16:39 09/23/18 16:38 Wound Center Nurse 2 #4 left lower leg medial -Time 16:39 -Correct Patient Yes -Correct Side, Site, Position Yes -Correct Procedure Yes -Procedure Performed Yes -Type of Procedure Debridement -Clinical Debridement Subcutaneous -Post Debridement Size (cm) - Length 2.5 -Post Debridement Size (cm) - Width 2 -Post Debridement Size (cm) - Depth 0.2 -Total Square Cm 5.0 -Wound/Ulcer Outcome Not Healed -Ulcer Cleansing Rinsed/ Irrigated with Saline -Foul Odor after Cleansing No -Bioengineered Tissue No -Bleeding Controlled with Pressure -Offloading No -Treatment Response Procedure Tolerated Well Pain Scale: 0-10 Numeric Is Patient Pain Free? Yes Wound debrided: anterior leg Laterality: Left Type of Debridement: Excisional debridement Anesthesia Used: 5% Lidocaine Gel Depth: in the subcutaneous layer Percentage of wound debrided: 100 Instrument Used: #15 blade Tissue Removed: fibrous, devitalized subcutaneous, biofilm, slough Severity: Fat Layer Exposed Amount of bleeding with debridement: Mild Bleeding Controlled with: Pressure Patient tolerated procedure well Assessment/Plan Assessment: Chronic and recurrent ulcer to the left ellison, returned. venous insufficiency. h/o DVT to left lower extremity, already treated. lymphedema. non compliance. delayed healing Plan: I reviewed and discussed her case. The ulcer site was debrided today as noted in the clinical panel. To resume nutritional supplementation. She is reassured there are no signs of infection. Her previous venous intervention with Dr. Machado is noted and appreciated. To continue surgery compression dressing; to avoid over tightening strap directly over the ulcer site to avoid pressure. To continue with lymphedema pumps up to twice daily and periodic elevation. To avoid idle standing or sitting. To continue elevation during work breaks; I agree this has helped with ulcer size reduction and edema as well. She will change her dressing daily at home. To continue periodic hourly elevation throughout the day. I recommend replacing the specialized compression garments with an updated pair of farrow wraps and this order will be placed at this time. I recommend a nutrition referral to optimize wound healing and reduce edema and weight. She was previously adamant that she will not attend; this is consistent with noncompliance. I explained the purpose and the benefits of this referral. To return to clinic in 1 week at the wound care center or call sooner if questions or concerns. I answered all of her questions today.
== END 2018-09-27 23:59 ==
LOC: WC 17:16
PROVIDERS: Family Provider Internal Medicine; PCP Internal Medicine; Visit Provider Podiatrist
DX: I87.2 Venous insufficiency (chronic) (peripheral) (principal); I89.0 Lymphedema, not elsewhere classified; L97.822 Non-pressure chronic ulcer of other part of left lower leg with fat layer exposed; Z86.718 Personal history of other venous thrombosis and embolism; Z91.19 Patient's noncompliance with other medical treatment and regimen
CPT/HCPCS: 11042; 29581

== ENCOUNTER 2018-10-28 16:00 | Outpatient (RCR) | payer MEDICAID, SELFPAY ==
[2018-09-28 00:28] VITALS: BP 139/69; PULSE 74; RESP 18; TEMP 36.4
[2018-09-30 16:05] VITALS: BP 116/60; PULSE 73; RESP 18; TEMP 36.1
--- NOTE | 2018-09-30 16:26 | PN.PCM_ITS ---
(1) Chronic ulcer of left lower extremity with fat layer exposed Status: Chronic Current Visit: Yes Code(s): L97.922 - Non-pressure chronic ulcer of unspecified part of left lower leg with fat layer exposed (2) Delayed wound healing Status: Chronic Current Visit: Yes Code(s): T14.8 - Other injury of unspecified body region (3) Venous insufficiency of left leg Status: Chronic Current Visit: Yes Code(s): I87.2 - Venous insufficiency (chronic) (peripheral) (4) Bilateral lower extremity edema Status: Chronic Current Visit: Yes Code(s): R60.0 - Localized edema (5) Malnutrition Status: Chronic Current Visit: Yes Code(s): E46 - Unspecified protein- calorie malnutrition Type of Wound Date of Service: 10/02/18 Chief Complaint: Chronic ulcer to the left lower extremity History of Wound: This 63 year old patient returns to the wound healing center for follow up of her chronic ulcer to her left ellison. She did have her venous procedure completed with vascular surgeon, Dr. Machado. She is waiting for continued approval of her new [place] wrap order to replace her previous other compression garments that are worn out. She denies pain, fever, chill, nausea, vomiting. She continues with aggressive compression therapy as advised. She denies redness or odor. She uses lymphedema compression pumps as advised. Progress of Wound: Improving quality - Physical Exam Vital Signs Temp Pulse Resp BP 96.9 F L 73 18 116/60 09/30/18 16:05 09/30/18 16:05 09/30/18 16:05 09/30/18 16:05 General: Alert, Oriented x3, Cooperative, No apparent distress Extremities: No cyanosis, Capillary Refill Less than 3 Seconds, No Calf Tenderness - Negative Italo and Castillo signs and compartments remain soft to palpate left lower extremity, Diminished Peripheral Pulses, Edema Skin: Ulcer/ Wound - No purulence, erythema hamstring, odor, infection left. There is improved cannulation tissue and decreased fibrous tissue noted to the ulcer bed. The peripheral skin is hairless and atrophic with hyperpigmentation Wound Measurements and Assessment WC - Nurse 1 - General Ulcer Measurement Start: 09/30/18 16:05 Freq: Status: Active Protocol: Activity Type Activity Date Activity User E-Sign Co-Sign Detail Recorded Client Recorded Date Recorded By Document 09/30/18 16:05 JF [id number] 09/30/18 16:07 JF 09/30/18 16:05 Wound Center Nurse 1 [Ulcer Assessment] #5 left lower leg medial -Combined with other wound No -Current Size (cm) - Length 3.1 -Current Size (cm) - Width 3 -Current Size (cm) - Depth 0.3 -Total Square Cm 9.3 -Photo Taken No -Epithelialization Small 1-33% -Tunneling No -Undermining/Tunneling No -Circular Undermining No -Exudate Amt Medium -Exudate Type Serosanguineous -Wound Margin Flat & Intact -Granulation Amt Large (67-100%) -Granulation Quality Red -Slough/Fibrin Yes -Necrosis Amt Small (1-33%) -Necrotic Tissue Type Adherent Slough -Structure Exposed N/A -Texture (Jenny-wound Skin Appearance) Assessed, Localized Edema -Moisture (Jenny-wound Skin Appearance Assessed,Dry/ ) Scaly -Color (Jenny-wound Skin Appearance) Assessed, Hemosiderin Staining -Temperature (Jenny-wound Skin No Abnormality Appearance) (Pt Warm) -Tenderness on Palpation (Jenny-wound No Skin Appearance) -Ulcer Cleansing Wound Cleanser -Foul Odor after Cleansing No -Anesthetic Used 4% Lidocaine Solution [Edema Assessment] -Lower Limb Edema Present Yes -Left Calf (cm) 47.5 -Left Ankle (cm) 28 WC - Nurse 2 - General Ulcer CM Notes Start: 09/30/18 16:05 Freq: Status: Active Protocol: Activity Type Activity Date Activity User E-Sign Co-Sign Detail Recorded Client Recorded Date Recorded By Document 09/30/18 16:05 JF [id number] 09/30/18 16:07 09/30/18 16:05 Pain Scale: 0-10 Numeric [Pain] -Is Patient Pain Free? Yes Wound Center Nurse 2 [Procedure/Treatment] #5 left lower leg medial -Time 16:06 -Correct Patient Yes -Correct Side, Site, Position Yes -Correct Procedure Yes -Procedure Performed Yes -Type of Procedure Debridement -Clinical Debridement Subcutaneous -Post Debridement Size (cm) - Length 3.2 -Post Debridement Size (cm) - Width 3 -Post Debridement Size (cm) - Depth 0.3 -Total Square Cm 9.6 -Wound/Ulcer Outcome Not Healed -Ulcer Cleansing Rinsed/ Irrigated with Saline -Foul Odor after Cleansing No -Bioengineered Tissue No -Bleeding Controlled with Pressure -Offloading No -Treatment Response Procedure Tolerated Well [See Physician Procedure note for Specifics] Musculoskeletal: No Tenderness to Palpation of Joints or Extremities, Muscle Wasting Neurological: Sensory exam intact to light touch and pain Psych/Mental Status: Normal Affect, Appropriate Debridement Note Post-Debridement Measurements/Treatment WC - Nurse 2 - General Ulcer CM Notes Start: 09/30/18 16:05 Freq: Status: Active Protocol: Activity Type Activity Date Activity User E-Sign Co-Sign Detail Recorded Client Recorded Date Recorded By Document 09/30/18 16:05 JF [id number] 09/30/18 16:07 JEFF 09/30/18 16:05 Pain Scale: 0-10 Numeric Is Patient Pain Free? Yes Wound Center Nurse 2 #5 left lower leg medial -Time 16:06 -Correct Patient Yes -Correct Side, Site, Position Yes -Correct Procedure Yes -Procedure Performed Yes -Type of Procedure Debridement -Clinical Debridement Subcutaneous -Post Debridement Size (cm) - Length 3.2 -Post Debridement Size (cm) - Width 3 -Post Debridement Size (cm) - Depth 0.3 -Total Square Cm 9.6 -Wound/Ulcer Outcome Not Healed -Ulcer Cleansing Rinsed/ Irrigated with Saline -Foul Odor after Cleansing No -Bioengineered Tissue No -Bleeding Controlled with Pressure -Offloading No -Treatment Response Procedure Tolerated Well Wound debrided: leg Laterality: Left Type of Debridement: Excisional debridement Anesthesia Used: 5% Lidocaine Gel Depth: in the subcutaneous layer Percentage of wound debrided: 100 Instrument Used: #15 blade Tissue Removed: fibrous, devitalized subcutaneous, biofilm, slough Severity: Fat Layer Exposed Amount of bleeding with debridement: Mild Bleeding Controlled with: Pressure Patient tolerated procedure well Assessment/Plan Active Problems Delayed wound healing (Chronic) Venous insufficiency of left leg (Chronic) Chronic ulcer of left lower extremity with fat layer exposed (Chronic) Bilateral lower extremity edema (Chronic) Malnutrition (Chronic) Assessment: Chronic and recurrent ulcer to the left ellison, returned. venous insufficiency. h/o DVT to left lower extremity, already treated. lymphedema. non compliance. delayed healing Plan: I reviewed and discussed her case. The ulcer site was debrided today as noted in the clinical panel. To resume nutritional supplementation. She is reassured there are no signs of infection. Her previous venous intervention with Dr. Machado is noted and appreciated. To continue surgery compression dressing; to avoid over tightening strap directly over the ulcer site to avoid pressure. To continue with lymphedema pumps up to twice daily and periodic elevation. To avoid idle standing or sitting. To continue elevation during work breaks; I agree this has helped with ulcer size reduction and edema as well. She will change her dressing daily at home. To continue periodic hourly elevation throughout the day. I recommend replacing the specialized compression garments with an updated pair of farrow wraps and this order will be placed at this time. I recommend a nutrition referral to optimize wound healing and reduce edema and weight. She was previously adamant that she will not attend; this is consistent with noncompliance. I explained the purpose and the benefits of this referral. To return to clinic in 1 week at the wound care [facility] or call sooner if questions or concerns. I answered all of her questions today.
[2018-10-07 14:54] VITALS: BP 138/73; PULSE 65; RESP 20; TEMP 36.7
--- NOTE | 2018-10-07 15:45 | PN.PCM_ITS ---
(1) Chronic ulcer of left lower extremity with fat layer exposed Status: Chronic Current Visit: Yes Code(s): L97.922 - Non-pressure chronic ulcer of unspecified part of left lower leg with fat layer exposed (2) Delayed wound healing Status: Chronic Current Visit: Yes Code(s): T14.8 - Other injury of unspecified body region (3) Venous insufficiency of left leg Status: Chronic Current Visit: Yes Code(s): I87.2 - Venous insufficiency (chronic) (peripheral) (4) Bilateral lower extremity edema Status: Chronic Current Visit: Yes Code(s): R60.0 - Localized edema (5) Malnutrition Status: Chronic Current Visit: Yes Code(s): E46 - Unspecified protein- calorie malnutrition Type of Wound Date of Service: 10/07/18 Chief Complaint: Chronic ulcer to the left lower extremity History of Wound: This 63 year old patient returns to the wound healing center for follow up of her chronic ulcer to her left ellison that has been present for over 1 month. She did have her venous procedure completed with vascular surgeon, Dr. Machado. She is waiting for continued approval of her new Farrow wrap order to replace her previous other compression garments that are worn out. She denies pain, fever, chill, nausea, vomiting. She continues with aggressive compression therapy as advised. She denies redness or odor. She uses lymphedema compression pumps as advised. She denies redness or odor coming from the leg. Progress of Wound: Stable with delayed healing - Physical Exam Vital Signs Temp Pulse Resp BP 98.1 F 65 20 H 138/73 H 10/07/18 14:54 10/07/18 14:54 10/07/18 14:54 10/07/18 14:54 General: Alert, Oriented x3, Cooperative, No apparent distress Extremities: No cyanosis, Capillary Refill Less than 3 Seconds, No Calf Tenderness - Negative Italo and Castillo sign left lower extremity, Diminished Peripheral Pulses, Edema Skin: Ulcer/ Wound - No purulence, erythema hamstring, odor, or infection. There is lack of clinical improvement noted in the ulcer side is fairly consistent with the last several visits. There is peripheral ulcer site hyperpigmentation and the ulcer bed is granular with devitalized tissue noted. There is no deep tissue exposed. The peripheral skin is also hairless and atrophic. Wound Measurements and Assessment WC - Nurse 1 - General Ulcer Measurement Start: 09/30/18 16:05 Freq: Status: Active Protocol: Activity Type Activity Date Activity User E-Sign Co-Sign Detail Recorded Client Recorded Date Recorded By Document 10/07/18 14:54 DL [id number] 10/07/18 15:02 DL 10/07/18 14:54 Wound Center Nurse 1 [Ulcer Assessment] #5 left lower leg medial -Current Size (cm) - Length 3.1 -Current Size (cm) - Width 3 -Current Size (cm) - Depth 0.1 -Total Square Cm 9.3 -Photo Taken No -Exudate Amt Small -Exudate Type Yellow/Green -Wound Margin Distinct, Outline Attached -Granulation Amt Large (67-100%) -Granulation Quality Red -Necrosis Amt Small (1-33%) -Necrotic Tissue Type Adherent Slough -Structure Exposed N/A -Texture (Jenny-wound Skin Appearance) Scarring -Moisture (Jenny-wound Skin Appearance No Abnormality ) -Color (Jenny-wound Skin Appearance) Rubor -Temperature (Jenny-wound Skin No Abnormality Appearance) (Pt Warm) -Tenderness on Palpation (Jenny-wound No Skin Appearance) -Ulcer Cleansing Wound Cleanser -Foul Odor after Cleansing No -Anesthetic Used 5% Lidocaine Gel [Edema Assessment] -Left Calf (cm) 45 -Left Ankle (cm) 25.6 - Nurse 2 - General Ulcer CM Notes Start: 09/30/18 16:05 Freq: Status: Active Protocol: Activity Type Activity Date Activity User E-Sign Co-Sign Detail Recorded Client Recorded Date Recorded By Document 10/07/18 15:37 JEFF [id number] 10/07/18 15:39 10/07/18 15:37 Wound Center Nurse 2 [Procedure/Treatment] #5 left lower leg medial -Time 15:38 -Correct Patient Yes -Correct Side, Site, Position Yes -Correct Procedure Yes -Procedure Performed Yes -Type of Procedure Debridement -Clinical Debridement Subcutaneous -Post Debridement Size (cm) - Length 3.1 -Post Debridement Size (cm) - Width 3.1 -Post Debridement Size (cm) - Depth 0.1 -Total Square Cm 9.61 -Wound/Ulcer Outcome Not Healed -Ulcer Cleansing Rinsed/ Irrigated with Saline -Foul Odor after Cleansing No -Bioengineered Tissue No -Bleeding Controlled with Pressure -Offloading No -Treatment Response Procedure Tolerated Well [See Physician Procedure note for Specifics] Pain Scale: 0-10 Numeric [Pain] -Is Patient Pain Free? Yes Musculoskeletal: No Tenderness to Palpation of Joints or Extremities, Muscle Wasting, - - Compartment soft to palpate left lower extremity Neurological: - - Altered and lack of epicritic sensation light touch around the ulcer site on the left leg Psych/Mental Status: Normal Affect, Appropriate Debridement Note Post-Debridement Measurements/Treatment WC - Nurse 2 - General Ulcer CM Notes Start: 09/30/18 16:05 Freq: Status: Active Protocol: Activity Type Activity Date Activity User E-Sign Co-Sign Detail Recorded Client Recorded Date Recorded By Document 09/30/18 16:05 [id number] 09/30/18 16:07 Document 10/07/18 15:37 [id number] 10/07/18 15:39 09/30/18 10/07/18 16:05 15:37 Pain Scale: 0-10 Numeric Is Patient Pain Free? Yes Yes Wound Center Nurse 2 #5 left lower leg medial -Time 16:06 15:38 -Correct Patient Yes Yes -Correct Side, Site, Position Yes Yes -Correct Procedure Yes Yes -Procedure Performed Yes Yes -Type of Procedure Debridement Debridement -Clinical Debridement Subcutaneous Subcutaneous -Post Debridement Size (cm) - Length 3.2 3.1 -Post Debridement Size (cm) - Width 3 3.1 -Post Debridement Size (cm) - Depth 0.3 0.1 -Total Square Cm 9.6 9.61 -Wound/Ulcer Outcome Not Healed Not Healed -Ulcer Cleansing Rinsed/ Rinsed/ Irrigated with Irrigated with Saline Saline -Foul Odor after Cleansing No No -Bioengineered Tissue No No -Bleeding Controlled with Pressure Pressure -Offloading No No -Treatment Response Procedure Procedure Tolerated Well Tolerated Well Wound debrided: leg Laterality: Left Type of Debridement: Excisional debridement Anesthesia Used: 5% Lidocaine Gel Depth: in the subcutaneous layer Percentage of wound debrided: 100 Instrument Used: #15 blade Tissue Removed: fibrous, devitalized subcutaneous, biofilm, slough Severity: Fat Layer Exposed Amount of bleeding with debridement: Mild Bleeding Controlled with: Pressure Patient tolerated procedure well Assessment/Plan Active Problems Delayed wound healing (Chronic) Venous insufficiency of left leg (Chronic) Chronic ulcer of left lower extremity with fat layer exposed (Chronic) Bilateral lower extremity edema (Chronic) Malnutrition (Chronic) Assessment: Chronic and recurrent ulcer to the left ellison, returned. Bacterial c ontamination is suspected and is being worked up right now with culture. venous insufficiency. h/o DVT to left lower extremity, already treated. lymphedema. non compliance. delayed healing Plan: I reviewed and discussed her case. The ulcer site was debrided today as noted in the clinical panel. After debridement and saline irrigation, aerobic and anaerobic cultures were obtained to evaluate for potential bacterial colonization that may be contributing to delayed ulcer healing. The results are pending. Aquacel Ag was applied and she is advised changes daily. I do also recommend application of advanced wound healing product, epi fix. The purpose and indication, planned application, anticipated healing time and management were discussed in detail with the patient. This is medically necessary for limb salvage. It is noted that she is not a smoker and there is minimal fibrous tissue noted in the ulcer bed. There is no ulcer slough. An adequate arterial perfusion is present to support ulcer healing. She is failed other conservative standard of care wound healing plans. To continue nutritional supplementation. It is noted she cannot afford Trevor supplementation and this is not covered under her insurance at this time. She is reassured there are no signs of infection. Her previous venous intervention with Dr. Machado is noted and appreciated. To continue surgery compression dressing; to avoid over tightening strap directly over the ulcer site to avoid pressure. To continue with lymphedema pumps up to twice daily and periodic elevation. To avoid idle standing or sitting. To continue elevation during work breaks; I agree this has helped with ulcer size reduction and edema as well. She will change her dressing daily at home. To continue periodic hourly elevation throughout the day. I recommend replacing the specialized compression garments with an updated pair of farrow wraps and this order will be placed at this time. I recommend a nutrition referral to optimize wound healing and reduce edema and weight. She was previously adamant that she will not attend; this is consistent with noncompliance. I explained the purpose and the benefits of this referral. To return to clinic in 1 week at the wound care center or call sooner if questions or concerns. I answered all of her questions today.
[2018-10-14 15:51] VITALS: BP 141/74; PULSE 62; RESP 18; TEMP 36.1
--- NOTE | 2018-10-14 16:26 | PN.PCM_ITS ---
(1) Chronic ulcer of left lower extremity with fat layer exposed Status: Chronic Code(s): L97.922 - Non-pressure chronic ulcer of unspecified part of left lower leg with fat layer exposed (2) Delayed wound healing Status: Chronic Code(s): T14.8 - Other injury of unspecified body region (3) Venous insufficiency of left leg Status: Chronic Code(s): I87.2 - Venous insufficiency (chronic) (peripheral) (4) Bilateral lower extremity edema Status: Chronic Code(s): R60.0 - Localized edema (5) Malnutrition Status: Chronic Code(s): E46 - Unspecified protein-calorie malnutrition (6) MRSA (methicillin resistant staph aureus) culture positive Status: Acute Code(s): Z22.322 - Carrier or suspected carrier of Methicillin resistant Staphylococcus aureus Type of Wound Date of Service: 10/18/18 Chief Complaint: Chronic ulcer to the left lower extremity History of Wound: This 63 year old patient returns to the wound healing center for follow up of her chronic ulcer to her left ellison that has been present for over 1 month. She did have her venous procedure completed with vascular surgeon, Dr. Machado. She is waiting for continued approval of her new [place] wrap order to replace her previous other compression garments that are worn out. She denies pain, fever, chill, nausea, vomiting. She continues with aggressive compression therapy as advised. She denies redness or odor. She uses lymphedema compression pumps as advised. She denies redness or odor coming from the leg. She has a culture of her also performed last week to check for contamination and I left her message with the results on her phone. She has reviewed these today. Progress of Wound: Stable with delayed healing - Physical Exam Vital Signs Temp Pulse Resp BP 97 F L 62 18 141/74 H 10/14/18 15:51 10/14/18 15:51 10/14/18 15:51 10/14/18 15:51 General: Alert, Oriented x3, Cooperative, No apparent distress HEENT: Atraumatic Extremities: No cyanosis, Capillary Refill Less than 3 Seconds, No Calf Tenderness - Negative pulmonary prep bilateral, Diminished Peripheral Pulses, Edema, - - The adjacent skin is hairless and atrophic. The ulcer bed is granular and fibrous Skin: Ulcer/ Wound - No purulence, erythema, streaking, odor, gross signs of infection. Peripheral hyperpigmentation noted in the ulcer bed appears dev italized Wound Measurements and Assessment WC - Nurse 1 - General Ulcer Measurement Start: 09/30/18 16:05 Freq: Status: Active Protocol: Activity Type Activity Date Activity User E-Sign Co-Sign Detail Recorded Client Recorded Date Recorded By Document 10/14/18 15:51 RB [id number] 10/14/18 16:00 RB 10/14/18 15:51 Wound Center Nurse 1 [Ulcer Assessment] #5 left lower leg medial -Combined with other wound No -Current Size (cm) - Length 4 -Current Size (cm) - Width 3.2 -Current Size (cm) - Depth 0.1 -Total Square Cm 12.8 -Tunneling No -Undermining/Tunneling No -Circular Undermining No -Exudate Amt Small -Exudate Type Serosanguineous -Wound Margin Flat & Intact -Granulation Amt Large (67-100%) -Granulation Quality Red -Slough/Fibrin Yes -Necrosis Amt Small (1-33%) -Necrotic Tissue Type Adherent Slough -Structure Exposed N/A -Texture (Jenny-wound Skin Appearance) Assessed -Moisture (Jenny-wound Skin Appearance Assessed ) -Color (Jenny-wound Skin Appearance) Hemosiderin Staining -Temperature (Jenny-wound Skin No Abnormality Appearance) (Pt Warm) -Tenderness on Palpation (Jenny-wound No Skin Appearance) -Ulcer Cleansing Wound Cleanser -Foul Odor after Cleansing No -Anesthetic Used 4% Lidocaine Solution [Edema Assessment] -Lower Limb Edema Present Yes -Left Calf (cm) 49.3 -Left Ankle (cm) 27.5 WC - Nurse 2 - General Ulcer CM Notes Start: 09/30/18 16:05 Freq: Status: Active Protocol: Activity Type Activity Date Activity User E-Sign Co-Sign Detail Recorded Client Recorded Date Recorded By Document 10/14/18 16:19 AN [id number] 10/14/18 16:25 AN 10/14/18 16:19 Wound Center Nurse 2 [Procedure/Treatment] #5 left lower leg medial -Time 16:24 -Correct Patient Yes -Correct Side, Site, Position Yes -Correct Procedure Yes -Procedure Performed Yes -Type of Procedure Debridement -Clinical Debridement Subcutaneous -Post Debridement Size (cm) - Length 4.1 -Post Debridement Size (cm) - Width 3.2 -Post Debridement Size (cm) - Depth 0.1 -Total Square Cm 13.12 -Wound/Ulcer Outcome Not Healed -Ulcer Cleansing Rinsed/ Irrigated with Saline -Foul Odor after Cleansing No -Bioengineered Tissue No -Bleeding Controlled with Pressure -Treatment Response Procedure Tolerated Well [See Physician Procedure note for Specifics] Pain Scale: 0-10 Numeric [Pain] -Is Patient Pain Free? Yes Musculoskeletal: No Tenderness to Palpation of Joints or Extremities, Muscle Wasting, - - Compartment soft to palpate left lower extremity Neurological: - - Altered sensation around palpation of the ulcer site left leg Psych/Mental Status: Normal Affect, Appropriate Debridement Note Post-Debridement Measurements/Treatment WC - Nurse 2 - General Ulcer CM Notes Start: 09/30/18 16:05 Freq: Status: Active Protocol: Activity Type Activity Date Activity User E-Sign Co-Sign Detail Recorded Client Recorded Date Recorded By Document 09/30/18 16:05 [id number] 09/30/18 16:07 Document 10/07/18 15:37 [id number] 10/07/18 15:39 Document 10/14/18 16:19 AN [id number] 10/14/18 16:25 AN 09/30/18 10/07/18 10/14/18 16:05 15:37 16:19 Pain Scale: 0-10 Numeric Is Patient Pain Free? Yes Yes Yes Wound Center Nurse 2 #5 left lower leg medial -Time 16:06 15:38 16:24 -Correct Patient Yes Yes Yes -Correct Side, Site, Position Yes Yes Yes -Correct Procedure Yes Yes Yes -Procedure Performed Yes Yes Yes -Type of Procedure Debridement Debridement Debridement -Clinical Debridement Subcutaneous Subcutaneous Subcutaneous -Post Debridement Size (cm) - Length 3.2 3.1 4.1 -Post Debridement Size (cm) - Width 3 3.1 3.2 -Post Debridement Size (cm) - Depth 0.3 0.1 0.1 -Total Square Cm 9.6 9.61 13.12 -Wound/Ulcer Outcome Not Healed Not Healed Not Healed -Ulcer Cleansing Rinsed/ Rinsed/ Rinsed/ Irrigated with Irrigated with Irrigated with Saline Saline Saline -Foul Odor after Cleansing No No No -Bioengineered Tissue No No No -Bleeding Controlled with Pressure Pressure Pressure -Offloading No No -Treatment Response Procedure Procedure Procedure Tolerated Well Tolerated Well Tolerated Well Wound debrided: leg Laterality: Left Type of Debridement: Excisional debridement Anesthesia Used: 5% Lidocaine Gel Depth: in the subcutaneous layer Percentage of wound debrided: 100 Instrument Used: #15 blade Tissue Removed: fibrous, devitalized subcutaneous, biofilm, slough Severity: Fat Layer Exposed Amount of bleeding with debridement: Mild Bleeding Controlled with: Pressure Patient tolerated procedure well Assessment/Plan Assessment: Chronic and recurrent ulcer to the left ellison, returned. Bacterial contamination is noted with MRSA. venous insufficiency. h/o DVT to left lower extremity, already treated. lymphedema. non compliance. delayed healing Plan: I reviewed and discussed her case. The ulcer site was debrided today as noted in the clinical panel. After debridement and saline irrigation, aerobic and anaerobic cultures were obtained to evaluate for potential bacterial colonization that may be contributing to delayed ulcer healing. This was positive for MRSA and is considered a contamination. She has lack of gross local or systemic signs of illness. I do recommend cleaning the ulcer site daily with Hibiclens antimicrobial wound wash and this was provided today. If lack of progress with noted oral antibiotics or an infectious disease consultation will be considered. Aquacel Ag was applied and she is advised changes daily. I do also recommend application of advanced wound healing product, epi fix. The purpose and indication, planned application, anticipated healing time and management were discussed in detail with the patient. This is medically necessary for limb salvage. It is noted that she is not a smoker and there is minimal fibrous tissue noted in the ulcer bed. There is no ulcer slough. An adequate arterial perfusion is present to support ulcer healing. She is failed other conservative standard of care wound healing plans. Additionally, antimicrobial collagen dressing, pure apply, can be considered if contamination continues to be an issue. Her condition will be reassessed next week and a decision on which product to use will be made at that time. To continue nutritional supplementation. It is noted she cannot afford Trevor supplementation and this is not covered under her insurance at this time. She is reassured there are no signs of infection. Her previous venous intervention with Dr. Machado is noted and appreciated. To continue surgery compression dressing; to avoid over tightening strap directly over the ulcer site to avoid pressure. To continue with lymphedema pumps up to twice daily and periodic elevation. To avoid idle standing or sitting. To continue elevation during work breaks; I agree this has helped with ulcer size reduction and edema as well . She will change her dressing daily at home. To continue periodic hourly elevation throughout the day. I recommend replacing the specialized compression garments with an updated pair of farrow wraps and this order will be placed at this time. I recommend a nutrition referral to optimize wound healing and reduce edema and weight. She was previously adamant that she will not attend; this is consistent with noncompliance. I explained the purpose and the benefits of this referral. To return to clinic in 1 week at the wound care center or call sooner if questions or concerns. I answered all of her questions today.
[2018-10-21 15:44] VITALS: BP 140/103; PULSE 71; RESP 16; TEMP 36.4
--- NOTE | 2018-10-21 16:59 | PN.PCM_ITS ---
(1) Chronic ulcer of left lower extremity with fat layer exposed Status: Chronic Current Visit: Yes Code(s): L97.922 - Non-pressure chronic ulcer of unspecified part of left lower leg with fat layer exposed (2) Delayed wound healing Status: Chronic Current Visit: Yes Code(s): T14.8 - Other injury of unspecified body region (3) Venous insufficiency of left leg Status: Chronic Current Visit: Yes Code(s): I87.2 - Venous insufficiency (chronic) (peripheral) (4) Bilateral lower extremity edema Status: Chronic Current Visit: Yes Code(s): R60.0 - Localized edema (5) Malnutrition Status: Chronic Current Visit: Yes Code(s): E46 - Unspecified protein- calorie malnutrition (6) MRSA (methicillin resistant staph aureus) culture positive Status: Resolved Current Visit: Yes Code(s): Z22.322 - Carrier or suspected carrier of Methicillin resistant Staphylococcus aureus Type of Wound Date of Service: 10/23/18 Chief Complaint: Chronic ulcer to the left lower extremity History of Wound: This 63 year old patient returns to the wound healing center for follow up of her chronic ulcer to her left ellison that has been present for we ll over 1 month. She did have her venous procedure completed with vascular surgeon, Dr. Machado. She is waiting for continued approval of her new Farrow wrap order to replace her previous other compression garments that are worn out. She denies pain, fever, chill, nausea, vomiting. She continues with aggressive compression therapy as advised. She denies redness or odor. She uses lymphedema compression pumps as advised. She denies redness or odor coming from the leg. She has a culture of her also performed last week to check for contamination. This was positive for abnormal bacterial growth. She was compliant with washing her leg including the ulcer with Hibiclens antimicrobial soap and it appears less inflamed today. Progress of Wound: Stable with delayed healing - Physical Exam Vital Signs Temp Pulse Resp BP 97.5 F L 71 16 140/103 H 10/21/18 15:44 10/21/18 15:44 10/21/18 15:44 10/21/18 15:44 General: Alert, Oriented x3, Cooperative, No apparent distress Extremities: No cyanosis, Capillary Refill Less than 3 Seconds, No Calf Tenderness, Diminished Peripheral Pulses, Edema Skin: Ulcer/ Wound - Negative Italo and Castillo sign left lower extremity. No purulence, erythema, streaking, odor, infection. There is less chaya-ulcer site inflammation. The ulcer bed has improved granulation tissue and decreased biofilm and fibrous tissue. There is peripheral hyperpigmentation and the adjacent skin is atrophic and hairless Wound Measurements and Assessment WC - Nurse 1 - General Ulcer Measurement Start: 09/30/18 16:05 Freq: Status: Active Protocol: Activity Type Activity Date Activity User E-Sign Co-Sign Detail Recorded Client Recorded Date Recorded By Document 10/21/18 15:44 [facility] [id number] 10/21/18 15:51 [facility] 10/21/18 15:44 Wound Center Nurse 1 [Ulcer Assessment] #5 left lower leg medial -Combined with other wound No -Current Size (cm) - Length 3.4 -Current Size (cm) - Width 2.9 -Current Size (cm) - Depth 0.2 -Total Square Cm 9.86 -Photo Taken No -Epithelialization None Present -Tunneling No -Undermining/Tunneling No -Circular Undermining No -Exudate Amt Medium -Exudate Type Serosanguineous -Wound Margin Distinct, Outline Attached -Granulation Amt Large (67-100%) -Granulation Quality Red -Slough/Fibrin No -Necrosis Amt None Present (0 %) -Necrotic Tissue Type Adherent Slough -Texture (Chaya-wound Skin Appearance) Assessed, Scarring -Moisture (Chaya-wound Skin Appearance Assessed,Dry/ ) Scaly -Color (Chaya-wound Skin Appearance) Assessed, Erythema, Hemosiderin Staining -Temperature (Chaya-wound Skin No Abnormality Appearance) (Pt Warm) -Tenderness on Palpation (Chaya-wound No Skin Appearance) -Ulcer Cleansing Rinsed/ Irrigated with Saline -Foul Odor after Cleansing No -Anesthetic Used 4% Lidocaine Solution [Edema Assessment] -Lower Limb Edema Present Yes -Left Calf (cm) 51.2 -Left Ankle (cm) 30 Musculoskeletal: No Tenderness to Palpation of Joints or Extremities, Muscle Wasting Neurological: Sensory exam intact to light touch and pain Psych/Mental Status: Normal Affect, Appropriate Debridement Note Post-Debridement Measurements/Treatment WC - Nurse 2 - General Ulcer CM Notes Start: 09/30/18 16:05 Freq: Status: Active Protocol: Activity Type Activity Date Activity User E-Sign Co-Sign Detail Recorded Client Recorded Date Recorded By Document 09/30/18 16:05 [id number] 09/30/18 16:07 Document 10/07/18 15:37 [id number] 10/07/18 15:39 Document 10/14/18 16:19 AN [id number] 10/14/18 16:25 AN 09/30/18 10/07/18 10/14/18 16:05 15:37 16:19 Pain Scale: 0-10 Numeric Is Patient Pain Free? Yes Yes Yes Wound Center Nurse 2 #5 left lower leg medial -Time 16:06 15:38 16:24 -Correct Patient Yes Yes Yes -Correct Side, Site, Position Yes Yes Yes -Correct Procedure Yes Yes Yes -Procedure Performed Yes Yes Yes -Type of Procedure Debridement Debridement Debridement -Clinical Debridement Subcutaneous Subcutaneous Subcutaneous -Post Debridement Size (cm) - Length 3.2 3.1 4.1 -Post Debridement Size (cm) - Width 3 3.1 3.2 -Post Debridement Size (cm) - Depth 0.3 0.1 0.1 -Total Square Cm 9.6 9.61 13.12 -Wound/Ulcer Outcome Not Healed Not Healed Not Healed -Ulcer Cleansing Rinsed/ Rinsed/ Rinsed/ Irrigated with Irrigated with Irrigated with Saline Saline Saline -Foul Odor after Cleansing No No No -Bioengineered Tissue No No No -Bleeding Controlled with Pressure Pressure Pressure -Offloading No No -Treatment Response Procedure Procedure Procedure Tolerated Well Tolerated Well Tolerated Well Wound debrided: leg Laterality: Left Type of Debridement: Excisional debridement Anesthesia Used: 5% Lidocaine Gel Depth: in the subcutaneous layer Percentage of wound debrided: 100 Instrument Used: #15 blade Tissue Removed: fibrous, devitalized subcutaneous, biofilm, slough Severity: Fat Layer Exposed Amount of bleeding with debridement: Mild Bleeding Controlled with: Pressure Patient tolerated procedure well Assessment/Plan Active Problems Delayed wound healing (Chronic) Venous insufficiency of left leg (Chronic) Chronic ulcer of left lower extremity with fat layer exposed (Chronic) Bilateral lower extremity edema (Chronic) Malnutrition (Chronic) Assessment: Chronic and recurrent ulcer to the left ellison, returned. Bacterial contamination is noted with MRSA. venous insufficiency. h/o DVT to left lower extremity, already treated. lymphedema. non compliance. delayed healing Plan: I reviewed and discussed her case. The ulcer site was debrided today as noted in the clinical panel. She has addressed her positive MRSA contamination with Hibiclens wash for 1 week and this is improved. She has lack of gross local or systemic signs of illness. To discontinue the wash protocol at this time. I do also recommend application of advanced wound healing product, epi fix. The purpose and indication, planned application, anticipated healing time and management were discussed in detail with the patient. This is medically necessary for limb salvage. An adequate arterial perfusion is present to support ulcer healing. She is failed other conservative standard of care wound healing plans. Verbal consent was obtained and this was applied according center protocol. This was secured in place with wound veil and Steri-Strips. She was advised to keep this clean, dry, and intact until follow-up visit next week. She tolerated this well. To continue nutritional supplementation. It is noted she cannot afford Trevor supplementation and this is not covered under her insurance at this time. She is reassured there are no signs of infection. Her previous venous intervention with Dr. Machado is noted and appreciated. To continue surgery compression dressing; to avoid over tightening strap directly over the ulcer site to avoid pressure. To continue with lymphedema pumps up to twice daily and periodic elevation. To avoid idle standing or sitting. To continue elevation during work breaks; I agree this has helped with ulcer size reduction and edema as well. She will change her dressing daily at home. To continue periodic hourly elevation throughout the day. I recommend replacing the specialized compression garments with an updated pair of farrow wraps and this order will be placed at this time. I recommend a nutrition referral to optimize wound healing and reduce edema and weight. She was previously adamant that she will not attend; this is consistent with noncompliance. I explained the purpose and the benefits of this referral. To return to clinic in 1 week at the wound care center or call sooner if questions or concerns. I answered all of her questions today.
[2018-10-28 15:46] VITALS: BP 122/72; PULSE 66; RESP 16; TEMP 36.2
--- NOTE | 2018-10-28 16:19 | PCM.WC.PN ---
(1) Chronic ulcer of left lower extremity with fat layer exposed Status: Chronic Code(s): L97.922 - Non-pressure chronic ulcer of unspecified part of left lower leg with fat layer exposed (2) Delayed wound healing Status: Chronic Code(s): T14.8 - Other injury of unspecified body region (3) Venous insufficiency of left leg Status: Chronic Code(s): I87.2 - Venous insufficiency (chronic) (peripheral) (4) Bilateral lower extremity edema Status: Chronic Code(s): R60.0 - Localized edema (5) Malnutrition Status: Chronic Code(s): E46 - Unspecified protein-calorie malnutrition Type of Wound Date of Service: 10/31/18 Chief Complaint: Chronic ulcer to the left lower extremity History of Wound: This 63 year old patient returns to the wound healing center for follow up of her chronic ulcer to her left ellison that has been present for well over 1 month. She did have her venous procedure completed with vascular surgeon, Dr. Machado. She is waiting for continued approval of her new Farrow wrap order to replace her previous other compression garments that are worn out. She denies pain, fever, chill, nausea, vomiting. She continues with aggressive compression therapy as advised. She denies redness or odor. She uses lymphedema compression pumps as advised. She denies redness or odor coming from the leg. she kept epi-fix in place last week as advised. Progress of Wound: Improving - Physical Exam Vital Signs Temp Pulse Resp BP 97.2 F L 66 16 122/72 H 10/28/18 15:46 10/28/18 15:46 10/28/18 15:46 10/28/18 15:46 General: Alert, Oriented x3, Cooperative, No apparent distress Extremities: No cyanosis, Capillary Refill Less than 3 Seconds, No Calf Tenderness, Diminished Peripheral Pulses, Edema Skin: Ulcer/ Wound - No infection. Improved granulation tissue. Peripheral skin is atrophic Wound Measurements and Assessment WC - Nurse 1 - General Ulcer Measurement Start: 09/30/18 16:05 Freq: Status: Active Protocol: Activity Type Activity Date Activity User E-Sign Co-Sign Detail Recorded Client Recorded Date Recorded By Document 10/28/18 15:46 CS [id number] 10/28/18 15:49 CS 10/28/18 15:46 Wound Center Nurse 1 [Ulcer Assessment] #5 left lower leg medial -Combined with other wound No -Current Size (cm) - Length 3.5 -Current Size (cm) - Width 2.6 -Current Size (cm) - Depth 0.1 -Total Square Cm 9.10 -Photo Taken No -Epithelialization Small 1-33% -Tunneling No -Undermining/Tunneling No -Circular Undermining No -Exudate Amt Large -Exudate Type Serosanguineous -Wound Margin Distinct, Outline Attached -Granulation Amt Large (67-100%) -Granulation Quality Red -Slough/Fibrin Yes -Necrosis Amt None Present (0 %) -Necrotic Tissue Type Adherent Slough -Structure Exposed None/Limited to Skin Breakdown -Texture (Jenny-wound Skin Appearance) Scarring -Moisture (Jenny-wound Skin Appearance No Abnormality, ) Assessed -Color (Jenny-wound Skin Appearance) Hemosiderin Staining -Temperature (Jenny-wound Skin No Abnormality Appearance) (Pt Warm) -Tenderness on Palpation (Jenny-wound No Skin Appearance) -Ulcer Cleansing Rinsed/ Irrigated with Saline -Foul Odor after Cleansing No -Anesthetic Used 4% Lidocaine Solution [Edema Assessment] -Lower Limb Edema Present Yes -Left Calf (cm) 51 -Left Ankle (cm) 29.5 WC - Nurse 2 - General Ulcer CM Notes Start: 09/30/18 16:05 Freq: Status: Active Protocol: Activity Type Activity Date Activity User E-Sign Co-Sign Detail Recorded Client Recorded Date Recorded By Document 10/28/18 16:12 AN [id number] 10/28/18 16:14 AN 10/28/18 16:12 Wound Center Nurse 2 [Procedure/Treatment] #5 left lower leg medial -Time 16:13 -Correct Patient Yes -Correct Side, Site, Position Yes -Correct Procedure Yes -Procedure Performed Yes -Type of Procedure Debridement -Clinical Debridement Subcutaneous -Post Debridement Size (cm) - Length 3.6 -Post Debridement Size (cm) - Width 2.7 -Post Debridement Size (cm) - Depth 0.1 -Total Square Cm 9.72 -Wound/Ulcer Outcome Not Healed -Ulcer Cleansing Rinsed/ Irrigated with Saline -Foul Odor after Cleansing No -Bioengineered Tissue Yes -Type of bioengineered Tissue EPIFIX -Bleeding Controlled with Pressure -Offloading Yes -Treatment Response Procedure Tolerated Well [See Physician Procedure note for Specifics] Pain Scale: 0-10 Numeric [Pain] -Is Patient Pain Free? Yes Musculoskeletal: No Tenderness to Palpation of Joints or Extremities, Muscle Wasting Neurological: - - Lack of normal sensation Psych/Mental Status: Normal Affect, Appropriate Debridement Note Post-Debridement Measurements/Treatment WC - Nurse 2 - General Ulcer CM Notes Start: 09/30/18 16:05 Freq: Status: Active Protocol: Activity Type Activity Date Activity User E-Sign Co-Sign Detail Recorded Client Recorded Date Recorded By Document 09/30/18 16:05 JF [id number] 09/30/18 16:07 Document 10/07/18 15:37 JF [id number] 10/07/18 15:39 JF Document 10/14/18 16:19 AN [id number] 10/14/18 16:25 AN Document 10/21/18 16:56 AN [id number] 10/21/18 17:00 AN Document 10/28/18 16:12 AN [id number] 10/28/18 16:14 AN 09/30/18 10/07/18 10/14/18 16:05 15:37 16:19 Pain Scale: 0-10 Numeric Is Patient Pain Free? Yes Yes Yes Wound Center Nurse 2 #5 left lower leg medial -Time 16:06 15:38 16:24 -Correct Patient Yes Yes Yes -Correct Side, Site, Position Yes Yes Yes -Correct Procedure Yes Yes Yes -Procedure Performed Yes Yes Yes -Type of Procedure Debridement Debridement Debridement -Clinical Debridement Subcutaneous Subcutaneous Subcutaneous -Post Debridement Size (cm) - Length 3.2 3.1 4.1 -Post Debridement Size (cm) - Width 3 3.1 3.2 -Post Debridement Size (cm) - Depth 0.3 0.1 0.1 -Total Square Cm 9.6 9.61 13.12 -Wound/Ulcer Outcome Not Healed Not Healed Not Healed -Ulcer Cleansing Rinsed/ Rinsed/ Rinsed/ Irrigated with Irrigated with Irrigated with Saline Saline Saline -Foul Odor after Cleansing No No No -Bioengineered Tissue No No No -Type of bioengineered Tissue -Bleeding Controlled with Pressure Pressure Pressure -Offloading No No -Treatment Response Procedure Procedure Procedure Tolerated Well Tolerated Well Tolerated Well 10/21/18 10/28/18 16:56 16:12 Pain Scale: 0-10 Numeric Is Patient Pain Free? Yes Yes Wound Center Nurse 2 #5 left lower leg medial -Time 16:59 16:13 -Correct Patient Yes Yes -Correct Side, Site, Position Yes Yes -Correct Procedure Yes Yes -Procedure Performed Yes Yes -Type of Procedure Debridement Debridement -Clinical Debridement Subcutaneous Subcutaneous -Post Debridement Size (cm) - Length 3.5 3.6 -Post Debridement Size (cm) - Width 3.0 2.7 -Post Debridement Size (cm) - Depth 0.2 0.1 -Total Square Cm 10.50 9.72 -Wound/Ulcer Outcome Not Healed Not Healed -Ulcer Cleansing Rinsed/ Irrigated with Saline -Foul Odor after Cleansing No -Bioengineered Tissue Yes Yes -Type of bioengineered Tissue EPIFIX EPIFIX -Bleeding Controlled with Pressure Pressure -Offloading Yes Yes -Treatment Response Procedure Procedure Tolerated Well Tolerated Well Wound debrided: leg Laterality: Left Type of Debridement: Excisional debridement Anesthesia Used: 5% Lidocaine Gel Depth: in the subcutaneous layer Percentage of wound debrided: 100 Instrument Used: #15 blade Tissue Removed: fibrous, devitalized subcutaneous, biofilm, slough Severity: Fat Layer Exposed Amount of bleeding with debridement: Mild Bleeding Controlled with: Pressure Patient tolerated procedure well Assessment/Plan Assessment: Chronic and recurrent ulcer to the left ellison, returned. Bacterial contamination is noted with MRSA -resolved. venous insufficiency. h/o DVT to left lower extremity, already treated. lymphedema. non compliance. delayed healing Plan: I reviewed and discussed her case. The ulcer site was debrided today as noted in the clinical panel. She has addressed her positive MRSA contamination with Hibiclens wash for 1 week and this is improved. She has lack of gross local or systemic signs of illness. To discontinue the wash protocol at this time. I do also recommend application of advanced wound healing product, epi fix. The purpose and indication, planned application, anticipated healing time and management were discussed in detail with the patient. This is medically necessary for limb salvage. An adequate arterial perfusion is present to support ulcer healing. She is failed other conservative standard of care wound healing plans. Verbal consent was obtained and this was applied according center protocol. This was secured in place with wound veil and Steri-Strips. She was advised to keep this clean, dry, and intact until follow-up visit next week. She tolerated this well. To continue nutritional supplementation. It is noted she cannot afford Trevor supplementation and this is not covered under her insurance at this time. She is reassured there are no signs of infection. Her previous venous intervention with Dr. Machado is noted and appreciated. To continue surgery compression dressing; to avoid over tightening strap directly over the ulcer site to avoid pressure. To continue with lymphedema pumps up to twice daily and periodic elevation. To avoid idle standing or sitting. To continue elevation during work breaks; I agree this has helped with ulcer size reduction and edema as well. She will change her dressing daily at home. To continue periodic hourly elevation throughout the day. I recommend replacing the specialized compression garments with an updated pair of farrow wraps and this order will be placed at this time. I recommend a nutrition referral to optimize wound healing and reduce edema and weight. She was previously adamant that she will not attend; this is consistent with noncompliance. I explained the purpose and the benefits of this referral. To return to clinic in 1 week at the wound care center or call sooner if questions or concerns. I answered all of her questions today.
== END 2018-10-28 23:59 ==
LOC: WC 16:00
PROVIDERS: Family Provider Internal Medicine; PCP Internal Medicine; Visit Provider Podiatrist
DX: I87.2 Venous insufficiency (chronic) (peripheral) (principal); L97.822 Non-pressure chronic ulcer of other part of left lower leg with fat layer exposed; R60.0 Localized edema; I89.0 Lymphedema, not elsewhere classified; Z86.718 Personal history of other venous thrombosis and embolism; Z91.19 Patient's noncompliance with other medical treatment and regimen
CPT/HCPCS: 11042; 15271; 29581; 87070; 87075; 87077; 87186; 87205; Q4186

== ENCOUNTER 2018-11-25 16:00 | Outpatient (RCR) | payer MEDICAID, SELFPAY ==
[2018-10-29 00:33] VITALS: BP 122/72; PULSE 66; RESP 16; TEMP 36.2
[2018-11-04 15:49] VITALS: BP 132/70; PULSE 65; RESP 18; TEMP 35.9
--- NOTE | 2018-11-04 16:31 | PN.PCM_ITS ---
(1) Chronic ulcer of left lower extremity with fat layer exposed Status: Chronic Current Visit: Yes Code(s): L97.922 - Non-pressure chronic ulcer of unspecified part of left lower leg with fat layer exposed (2) Lymphedema Status: Chronic Current Visit: Yes Code(s): I89.0 - Lymphedema, not elsewhere classified (3) Venous insufficiency (chronic) (peripheral) Status: Chronic Current Visit: Yes Code(s): I87.2 - Venous insufficiency (chronic) (peripheral) (4) Delayed wound healing Status: Chronic Current Visit: Yes Code(s): T14.8XXD - Other injury of unspecified body region, subsequent encounter Type of Wound Date of Service: 11/05/18 Chief Complaint: Chronic ulcer to the left lower extremity History of Wound: This 63 year old patient returns to the wound healing center for follow up of her chronic ulcer to her left ellison that has been present for well over 1 month. She did have her venous procedure completed with vascular surgeon, Dr. Machado. She is waiting for continued approval of her new [place] wrap order to replace her previous other compression garments that are worn out. She denies pain, fever, chill, nausea, vomiting. She continues with aggressive compression therapy as advised. She denies redness or odor. She uses lymphedema compression pumps as advised. She denies redness or odor coming from the leg. she kept epi-fix in place last week as advised. Progress of Wound: Improving - Physical Exam Vital Signs Temp Pulse Resp BP 96.6 F L 65 18 132/70 H 11/04/18 15:49 11/04/18 15:49 11/04/18 15:49 11/04/18 15:49 General: Alert, Oriented x3, Cooperative, No apparent distress Extremities: No cyanosis, Capillary Refill Less than 3 Seconds, No Calf Tenderness - Negative Italo and Castillo sign left, Diminished Peripheral Pulses, Edema Skin: Ulcer/ Wound - No purulence, erythema, streaking, odor, infection. Discontinue hyperpigmentation around the ulcer site. There is no necrosis or deep tissue exposure. The peripheral skin is hairless and atrophic. Wound Measurements and Assessment WC - Nurse 1 - General Ulcer Measurement Start: 11/04/18 15:48 Freq: Status: Active Protocol: Activity Type Activity Date Activity User E-Sign Co-Sign Detail Recorded Client Recorded Date Recorded By Document 11/04/18 15:49 RB [id number] 11/04/18 15:51 RB 11/04/18 15:49 Wound Center Nurse 1 [Ulcer Assessment] #5 left lower leg medial -Combined with other wound No -Current Size (cm) - Length 2.7 -Current Size (cm) - Width 2 -Current Size (cm) - Depth 0.1 -Total Square Cm 5.4 -Photo Taken No -Tunneling No -Undermining/Tunneling No -Circular Undermining No -Exudate Amt Small -Exudate Type Serosanguineous -Wound Margin Flat & Intact -Granulation Amt Large (67-100%) -Granulation Quality [place],Red -Necrosis Amt Small (1-33%) -Necrotic Tissue Type Adherent Slough -Structure Exposed N/A -Texture (Jenny-wound Skin Appearance) Assessed -Moisture (Jenny-wound Skin Appearance Assessed ) -Color (Jenny-wound Skin Appearance) Hemosiderin Staining -Temperature (Jenny-wound Skin No Abnormality Appearance) (Pt Warm) -Tenderness on Palpation (Jenny-wound No Skin Appearance) -Ulcer Cleansing Wound Cleanser -Foul Odor after Cleansing No -Anesthetic Used 4% Lidocaine Solution [Edema Assessment] -Lower Limb Edema Present Yes -Left Calf (cm) 49.5 -Left Ankle (cm) 27 Musculoskeletal: No Tenderness to Palpation of Joints or Extremities, Muscle Wasting Neurological: - - Altered sensation noted to light touch left lower extremity Psych/Mental Status: Normal Affect, Appropriate Debridement Note Wound debrided: leg Laterality: Left Type of Debridement: Excisional debridement Anesthesia Used: 5% Lidocaine Gel Depth: in the subcutaneous layer Percentage of wound debrided: 100 Instrument Used: #15 blade Tissue Removed: fibrous, devitalized subcutaneous, biofilm, slough Severity: Fat Layer Exposed Amount of bleeding with debridement: Mild Bleeding Controlled with: Pressure Patient tolerated procedure well Assessment/Plan Active Problems Lymphedema (Chronic) Venous insufficiency (chronic) (peripheral) (Chronic) Delayed wound healing (Chronic) Chronic ulcer of left lower extremity with fat layer exposed (Chronic) Assessment: Chronic and recurrent ulcer to the left ellison, returned. Bacterial contamination is noted with MRSA -resolved. venous insufficiency. h/o DVT to left lower extremity, already treated. lymphedema. non compliance. delayed healing Plan: I reviewed and discussed her case. The ulcer site was debrided today as noted in the clinical panel. She has lack of gross local or systemic signs of illness. I do also recommend application of advanced wound healing product, epi fix. The purpose and indication, planned application, anticipated healing time and management were discussed in detail with the patient. This is medically nec essary for limb salvage. An adequate arterial perfusion is present to support ulcer healing. She is failed other conservative standard of care wound healing plans. Verbal consent was obtained and this was applied according center protocol. This was secured in place with wound veil and Steri-Strips. She was advised to keep this clean, dry, and intact until follow-up visit next week. She tolerated this well. To continue nutritional supplementation. It is noted she cannot afford Trevor supplementation and this is not covered under her insurance at this time. She is reassured there are no signs of infection. Her previous venous intervention with Dr. Machado is noted and appreciated. To continue surgery compression dressing; to avoid over tightening strap directly over the ulcer site to avoid pressure. To continue with lymphedema pumps up to twice daily and periodic elevation. To avoid idle standing or sitting. To continue elevation during work breaks; I agree this has helped with ulcer size reduction and edema as well. She will change her dressing daily at home. To continue periodic hourly elevation throughout the day. I recommend replacing the specialized compression garments with an updated pair of farrow wraps and this order will be placed at this time. I recommend a nutrition referral to optimize wound healing and reduce edema and weight. She was previously adamant that she will not attend; this is consistent with noncompliance. I explained the purpose and the benefits of this referral. To return to clinic in 1 week at the wound care center or call sooner if questions or concerns. I answered all of her questions today.
[2018-11-13 15:44] VITALS: BP 132/68; PULSE 67; RESP 16; TEMP 35.7
--- NOTE | 2018-11-13 16:57 | PN.PCM_ITS ---
(1) Chronic ulcer of left lower extremity with fat layer exposed Status: Chronic Current Visit: Yes Code(s): L97.922 - Non-pressure chronic ulcer of unspecified part of left lower leg with fat layer exposed (2) Lymphedema Status: Chronic Current Visit: Yes Code(s): I89.0 - Lymphedema, not elsewhere classified (3) Venous insufficiency (chronic) (peripheral) Status: Chronic Current Visit: Yes Code(s): I87.2 - Venous insufficiency (chronic) (peripheral) (4) Delayed wound healing Status: Chronic Current Visit: Yes Code(s): T14.8XXD - Other injury of unspecified body region, subsequent encounter Type of Wound Date of Service: 11/13/18 Chief Complaint: Chronic ulcer to the left lower extremity History of Wound: This 63 year old patient returns to the wound healing center for follow up of her chronic ulcer to her left ellison that has been present for well over 1 month. She did have her venous procedure completed with vascular surgeon, Dr. Machado. She uses circaid wrap shelter and compression pumps. She denies pain, fever, chill, nausea, vomiting. She continues with aggressive compression therapy as advised. She denies redness or odor. She denies redness or odor coming from the leg. she kept epi-fix in place last week as advised. Progress of Wound: Improving - Physical Exam Vital Signs Temp Pulse Resp BP 96.2 F L 67 16 132/68 H 11/13/18 15:44 11/13/18 15:44 11/13/18 15:44 11/13/18 15:44 General: Alert, Oriented x3, Cooperative, No apparent distress HEENT: Atraumatic Extremities: No cyanosis, Capillary Refill Less than 3 Seconds, No Calf Tenderness - Negative Italo and Castillo sign, Diminished Peripheral Pulses, Edema Skin: Ulcer/ Wound - No purulence, erythema, streaking, odor, infection Wound Measurements and Assessment WC - Nurse 1 - General Ulcer Measurement Start: 11/04/18 15:48 Freq: Status: Active Protocol: Activity Type Activity Date Activity User E-Sign Co-Sign Detail Recorded Client Recorded Date Recorded By Document 11/13/18 15:[address] [facility] [id number] 11/13/18 15:[address] [facility] 11/13/18 15:44 Wound Center Nurse 1 [Ulcer Assessment] #5 left lower leg medial -Combined with other wound No -Current Size (cm) - Length 3.2 -Current Size (cm) - Width 2.1 -Current Size (cm) - Depth 0.1 -Total Square Cm 6.72 -Photo Taken No -Epithelialization None Present -Tunneling No -Undermining/Tunneling No -Circular Undermining No -Exudate Amt Medium -Exudate Type Serosanguineous -Wound Margin Distinct, Outline Attached -Granulation Amt Medium (34-66%) -Granulation Quality Red -Slough/Fibrin Yes -Necrosis Amt Medium (34-66%) -Necrotic Tissue Type Adherent Slough -Texture (Jenny-wound Skin Appearance) Assessed, Scarring -Moisture (Jenny-wound Skin Appearance Assessed,Dry/ ) Scaly -Color (Jenny-wound Skin Appearance) Assessed -Temperature (Jenny-wound Skin No Abnormality Appearance) (Pt Warm) -Tenderness on Palpation (Jenny-wound No Skin Appearance) -Ulcer Cleansing SOAP AND WATER -Foul Odor after Cleansing No -Anesthetic Used 5% Lidocaine Gel [Edema Assessment] -Lower Limb Edema Present Yes -Left Calf (cm) 45.6 -Left Ankle (cm) 27.2 WC - Nurse 2 - General Ulcer CM Notes Start: 11/04/18 15:48 Freq: Status: Active Protocol: Activity Type Activity Date Activity User E-Sign Co-Sign Detail Recorded Client Recorded Date Recorded By Document 11/13/18 16:47 DV [id number] 11/13/18 16:51 DV 11/13/18 16:47 Wound Center Nurse 2 [Procedure/Treatment] #5 left lower leg medial -Time 16:47 -Correct Patient Yes -Correct Side, Site, Position Yes -Correct Procedure Yes -Procedure Performed Yes -Type of Procedure Debridement -Clinical Debridement Subcutaneous -Post Debridement Size (cm) - Length 3.5 -Post Debridement Size (cm) - Width 2.5 -Post Debridement Size (cm) - Depth 0.1 -Total Square Cm 8.75 -Wound/Ulcer Outcome Not Healed -Ulcer Cleansing Rinsed/ Irrigated with Saline -Foul Odor after Cleansing No -Bioengineered Tissue Yes -Type of bioengineered Tissue EPIFIX -Expiration Date 03/31/23 -Product Lot Number [id number] -Percent Used 100 -Saline Lot Number [id number] -Topical Lidocaine (%) 5 -Bleeding Controlled with Pressure -Offloading No -Treatment Response Procedure Tolerated Well [See Physician Procedure note for Specifics] Pain Scale: 0-10 Numeric [Pain] -Is Patient Pain Free? Yes Musculoskeletal: No Tenderness to Palpation of Joints or Extremities, Muscle Wasting, - - Compartment soft to palpate Neurological: - - Lack of normal epicritic sensation at ulcer site Psych/Mental Status: Normal Affect, Appropriate Debridement Note Post-Debridement Measurements/Treatment WC - Nurse 2 - General Ulcer CM Notes Start: 11/04/18 15:48 Freq: Status: Active Protocol: Activity Type Activity Date Activity User E-Sign Co-Sign Detail Recorded Client Recorded Date Recorded By Document 11/13/18 16:47 DV [id number] 11/13/18 16:51 DV 11/13/18 16:47 Wound Center Nurse 2 #5 left lower leg medial -Time 16:47 -Correct Patient Yes -Correct Side, Site, Position Yes -Correct Procedure Yes -Procedure Performed Yes -Type of Procedure Debridement -Clinical Debridement Subcutaneous -Post Debridement Size (cm) - Length 3.5 -Post Debridement Size (cm) - Width 2.5 -Post Debridement Size (cm) - Depth 0.1 -Total Square Cm 8.75 -Wound/Ulcer Outcome Not Healed -Ulcer Cleansing Rinsed/ Irrigated with Saline -Foul Odor after Cleansing No -Bioengineered Tissue Yes -Type of bioengineered Tissue EPIFIX -Expiration Date 03/31/23 -Product Lot Number [id number] -Percent Used 100 -Saline Lot Number [id number] -Topical Lidocaine (%) 5 -Bleeding Controlled with Pressure -Offloading No -Treatment Response Procedure Tolerated Well Pain Scale: 0-10 Numeric Is Patient Pain Free? Yes Wound debrided: anterior leg Laterality: Left Type of Debridement: Excisional debridement Anesthesia Used: 5% Lidocaine Gel Depth: in the subcutaneous layer Percentage of wound debrided: 100 Instrument Used: #15 blade Tissue Removed: fibrous, devitalized subcutaneous, biofilm, slough Severity: Fat Layer Exposed Amount of bleeding with debridement: Mild Bleeding Controlled with: Pressure Patient tolerated procedure well Assessment/Plan Active Problems Lymphedema (Chronic) Venous insufficiency (chronic) (peripheral) (Chronic) Delayed wound healing (Chronic) Chronic ulcer of left lower extremity with fat layer exposed (Chronic) Assessment: Chronic and recurrent ulcer to the left ellison, returned. Bacterial contamination is noted with MRSA -resolved. venous insufficiency. h/o DVT to left lower extremity, already treated. lymphedema. non compliance. delayed healing Plan: I reviewed and discussed her case. The ulcer site was debrided today as noted in the clinical panel. She has lack of gross local or systemic signs of illness. I do also recommend application of advanced wound healing product, epi fix. The purpose and indication, planned application, anticipated healing time and management were discussed in detail with the patient. This is medically necessary for limb salvage. An adequate arterial perfusion is present to support ulcer healing. She is failed other conservative standard of care wound healing plans. Verbal consent was obtained and this was applied according center protocol. This was secured in place with self-adhesive Adaptic touch. She was advised to keep this clean, dry, and intact until follow-up visit next week. She tolerated this well. To continue nutritional supplementation. It is noted she cannot afford Trevor supplementation and this is not covered under her insurance at this time. She is reassured there are no signs of infection. Her previous venous intervention with Dr. Machado is noted and appreciated. To continue surgery compression dressing; to avoid over tightening strap directly over the ulcer site to avoid pressure. To continue with lymphedema pumps up to twice daily and periodic elevation. To avoid idle standing or sitting. To continue elevation during work breaks; I agree this has helped with ulcer size reduction and edema as well. She will change her dressing daily at home. To continue periodic hourly elevation throughout the day. I recommend replacing the specialized compression garments with an updated pair of farrow wraps and this order will be placed at this time. I recommend a nutrition referral to optimize wound healing and reduce edema and weight. She was previously adamant that she will not attend; this is consistent with noncompliance. I explained the purpose and the benefits of this referral. To return to clinic in 1 week at the wound care center or call sooner if questions or concerns. I answered all of her questions today.
[2018-11-18 15:42] VITALS: BP 141/72; PULSE 74; RESP 16; TEMP 37
--- NOTE | 2018-11-18 17:04 | PCM.WC.PN ---
(1) Chronic ulcer of left lower extremity with fat layer exposed Status: Chronic Current Visit: Yes Code(s): L97.922 - Non-pressure chronic ulcer of unspecified part of left lower leg with fat layer exposed (2) Lymphedema Status: Chronic Current Visit: Yes Code(s): I89.0 - Lymphedema, not elsewhere classified (3) Venous insufficiency (chronic) (peripheral) Status: Chronic Current Visit: Yes Code(s): I87.2 - Venous insufficiency (chronic) (peripheral) (4) Delayed wound healing Status: Chronic Current Visit: Yes Code(s): T14.8XXD - Other injury of unspecified body region, subsequent encounter Type of Wound Date of Service: 11/18/18 Chief Complaint: Chronic ulcer to the left lower extremity History of Wound: This 63 year old patient returns to the wound healing center for follow up of her chronic ulcer to her left ellison that has been present for well over 1 month. She did have her venous procedure completed with vascular surgeon, Dr. Machado. She uses circaid wrap snf and compression pumps. She denies pain, fever, chill, nausea, vomiting. She continues with aggressive compression therapy as advised. She denies redness or odor. She denies redness or odor coming from the leg. she kept epi-fix in place last week as advised. Progress of Wound: Improving - Physical Exam Vital Signs Temp Pulse Resp BP 98.6 F 74 16 141/72 H 11/18/18 15:42 11/18/18 15:42 11/18/18 15:42 11/18/18 15:42 General: Alert, Oriented x3, Cooperative, No apparent distress Extremities: No cyanosis, Capillary Refill Less than 3 Seconds, No Calf Tenderness - Negative Homans and Castillo sign left, Diminished Peripheral Pulses, Edema Skin: Ulcer/ Wound - No purulence, erythema, odor, infection, left. peripheral skin is hairless, atrophic, and without inflammation. significant peripheral epithelialization is noted Wound Measurements and Assessment WC - Nurse 1 - General Ulcer Measurement Start: 11/04/18 15:48 Freq: Status: Active Protocol: Activity Type Activity Date Activity User E-Sign Co-Sign Detail Recorded Client Recorded Date Recorded By Document 11/18/18 15:42 [facility] [id number] 11/18/18 15:45 [facility] 11/18/18 15:42 Wound Center Nurse 1 [Ulcer Assessment] #5 left lower leg medial -Combined with other wound No -Current Size (cm) - Length 2.3 -Current Size (cm) - Width 1.4 -Current Size (cm) - Depth 0.1 -Total Square Cm 3.22 -Photo Taken No -Epithelialization Small 1-33% -Tunneling No -Undermining/Tunneling No -Circular Undermining No -Exudate Amt Small -Exudate Type Serosanguineous -Wound Margin Flat & Intact -Granulation Amt Medium (34-66%) -Granulation Quality Red -Slough/Fibrin Yes -Necrosis Amt Medium (34-66%) -Necrotic Tissue Type Adherent Slough -Texture (Chaya-wound Skin Appearance) Assessed, Scarring -Moisture (Chaya-wound Skin Appearance Assessed ) -Color (Chaya-wound Skin Appearance) Assessed, Hemosiderin Staining -Temperature (Chaya-wound Skin No Abnormality Appearance) (Pt Warm) -Tenderness on Palpation (Chaya-wound No Skin Appearance) -Ulcer Cleansing soap and water -Foul Odor after Cleansing No -Anesthetic Used 5% Lidocaine Gel [Edema Assessment] -Lower Limb Edema Present Yes -Left Calf (cm) 45.5 -Left Ankle (cm) 27.9 WC - Nurse 2 - General Ulcer CM Notes Start: 11/04/18 15:48 Freq: Status: Active Protocol: Activity Type Activity Date Activity User E-Sign Co-Sign Detail Recorded Client Recorded Date Recorded By Document 11/18/18 16:05 AN [id number] 11/18/18 16:06 AN 11/18/18 16:05 Wound Center Nurse 2 [Procedure/Treatment] #5 left lower leg medial -Time 16:05 -Correct Patient Yes -Correct Side, Site, Position Yes -Correct Procedure Yes -Procedure Performed Yes -Type of Procedure Debridement -Clinical Debridement Subcutaneous -Post Debridement Size (cm) - Length 2.4 -Post Debridement Size (cm) - Width 1.5 -Post Debridement Size (cm) - Depth 0.1 -Total Square Cm 3.60 -Wound/Ulcer Outcome Not Healed -Ulcer Cleansing Rinsed/ Irrigated with Saline -Foul Odor after Cleansing No -Bioengineered Tissue No -Bleeding Controlled with Pressure -Offloading No -Treatment Response Procedure Tolerated Well [See Physician Procedure note for Specifics] Pain Scale: 0-10 Numeric [Pain] -Is Patient Pain Free? Yes Musculoskeletal: No Tenderness to Palpation of Joints or Extremities, Muscle Wasting, - - Compartment soft left Neurological: - - Lack of sensation chaya Ulcer site left Psych/Mental Status: Normal Affect, Appropriate Debridement Note Post-Debridement Measurements/Treatment WC - Nurse 2 - General Ulcer CM Notes Start: 11/04/18 15:48 Freq: Status: Active Protocol: Activity Type Activity Date Activity User E-Sign Co-Sign Detail Recorded Client Recorded Date Recorded By Document 11/13/18 16:47 DV [id number] 11/13/18 16:51 DV Document 11/18/18 16:05 AN [id number] 11/18/18 16:06 AN 11/13/18 11/18/18 16:47 16:05 Wound Center Nurse 2 #5 left lower leg medial -Time 16:47 16:05 -Correct Patient Yes Yes -Correct Side, Site, Position Yes Yes -Correct Procedure Yes Yes -Procedure Performed Yes Yes -Type of Procedure Debridement Debridement -Clinical Debridement Subcutaneous Subcutaneous -Post Debridement Size (cm) - Length 3.5 2.4 -Post Debridement Size (cm) - Width 2.5 1.5 -Post Debridement Size (cm) - Depth 0.1 0.1 -Total Square Cm 8.75 3.60 -Wound/Ulcer Outcome Not Healed Not Healed -Ulcer Cleansing Rinsed/ Rinsed/ Irrigated with Irrigated with Saline Saline -Foul Odor after Cleansing No No -Bioengineered Tissue Yes No -Type of bioengineered Tissue EPIFIX -Expiration Date 03/31/23 -Product Lot Number [id number] -Percent Used 100 -Saline Lot Number [id number] -Topical Lidocaine (%) 5 -Bleeding Controlled with Pressure Pressure -Offloading No No -Treatment Response Procedure Procedure Tolerated Well Tolerated Well Pain Scale: 0-10 Numeric Is Patient Pain Free? Yes Yes Wound debrided: leg Laterality: Left Type of Debridement: Excisional debridement Anesthesia Used: 5% Lidocaine Gel Depth: in the subcutaneous layer Percentage of wound debrided: 100 Instrument Used: #15 blade Tissue Removed: fibrous, devitalized subcutaneous, biofilm, slough Severity: Fat Layer Exposed Amount of bleeding with debridement: Mild Bleeding Controlled with: Pressure Patient tolerated procedure well Assessment/Plan Active Problems Lymphedema (Chronic) Venous insufficiency (chronic) (peripheral) (Chronic) Delayed wound healing (Chronic) Chronic ulcer of left lower extremity with fat layer exposed (Chronic) Assessment: Chronic and recurrent ulcer to the left ellison, returned. venous insufficiency. h/o DVT to left lower extremity, already treated. lymphedema. non compliance. delayed healing Plan: I reviewed and discussed her case. The ulcer site was debrided today as noted in the clinical panel. She has lack of gross local or systemic signs of illness. I do also recommend application of advanced wound healing product, epi fix. The purpose and indication, planned application, anticipated healing time and management were discussed in detail with the patient. This is medically necessary for limb salvage. An adequate arterial perfusion is present to support ulcer healing. She is failed other conservative standard of care wound healing plans. Verbal consent was obtained and this was applied according center protocol. This was secured in place with self-adhesive Adaptic touch. She was advised to keep this clean, dry, and intact until follow-up visit next week. She tolerated this well. To continue nutritional supplementation. It is noted she cannot afford Trevor supplementation and this is not covered under her insurance at this time. She is reassured there are no signs of infection. Her previous venous intervention with Dr. Machado is noted and appreciated. To continue surgery compression dressing; to avoid over tightening strap directly over the ulcer site to avoid pressure. To continue with lymphedema pumps up to twice daily and periodic elevation. To avoid idle standing or sitting. To continue elevation during work breaks; I agree this has helped with ulcer size reduction and edema as well. She will change her dressing daily at home. To continue periodic hourly elevation throughout the day. I recommend replacing the specialized compression garments with an updated pair of farrow wraps and this order will be placed at this time. I recommend a nutrition referral to optimize wound healing and reduce edema and weight. She was previously adamant that she will not attend; this is consistent with noncompliance. I explained the purpose and the benefits of this referral. To return to clinic in 1 week at the wound care center or call sooner if questions or concerns. I answered all of her questions today.
[2018-11-25 15:39] VITALS: BP 149/80; PULSE 67; RESP 18; TEMP 36.1
--- NOTE | 2018-11-25 16:37 | PCM.WC.PN ---
(1) Chronic ulcer of left lower extremity with fat layer exposed Status: Chronic Current Visit: Yes Code(s): L97.922 - Non-pressure chronic ulcer of unspecified part of left lower leg with fat layer exposed (2) Lymphedema Status: Chronic Current Visit: Yes Code(s): I89.0 - Lymphedema, not elsewhere classified (3) Venous insufficiency (chronic) (peripheral) Status: Chronic Current Visit: Yes Code(s): I87.2 - Venous insufficiency (chronic) (peripheral) (4) Delayed wound healing Status: Chronic Current Visit: Yes Code(s): T14.8XXD - Other injury of unspecified body region, subsequent encounter Type of Wound Date of Service: 11/25/18 Chief Complaint: Chronic ulcer to the left lower extremity History of Wound: This 63 year old patient returns to the wound healing center for follow up of her chronic ulcer to her left ellison. She did have her venous procedure completed with vascular surgeon, Dr. Machado. She uses circaid wrap nursing home and compression pumps. She denies pain, fever, chill, nausea, vomiting. She continues with aggressive compression therapy as advised. She denies redness or odor. She denies redness or odor coming from the leg. she kept epi-fix in place last week as advised. Progress of Wound: Improving - Physical Exam Vital Signs Temp Pulse Resp BP 96.9 F L 67 18 149/80 H 11/25/18 15:39 11/25/18 15:39 11/25/18 15:39 11/25/18 15:39 General: Alert, Oriented x3, Cooperative, No apparent distress Extremities: No cyanosis, Capillary Refill Less than 3 Seconds, No Calf Tenderness, Diminished Peripheral Pulses, Edema Skin: Ulcer/ Wound - No purulence, erythema, string, odor, or infection. Peripheral epithelialization is noted in the ulcer bed is granular. The skin is hairless, atrophic, and hyperpigmented Wound Measurements and Assessment WC - Nurse 1 - General Ulcer Measurement Start: 11/04/18 15:48 Freq: Status: Active Protocol: Activity Type Activity Date Activity User E-Sign Co-Sign Detail Recorded Client Recorded Date Recorded By Document 11/25/18 15:39 DL [id number] 11/25/18 15:44 DL 11/25/18 15:39 Wound Center Nurse 1 [Ulcer Assessment] #5 left lower leg medial -Current Size (cm) - Length 1.3 -Current Size (cm) - Width 0.6 -Current Size (cm) - Depth 0.1 -Total Square Cm 0.78 -Photo Taken No -Epithelialization Medium 34-66% -Tunneling No -Undermining/Tunneling No -Circular Undermining No -Exudate Amt Small -Exudate Type Serosanguineous -Wound Margin Flat & Intact -Granulation Amt Medium (34-66%) -Granulation Quality Red -Slough/Fibrin Yes -Necrosis Amt Medium (34-66%) -Necrotic Tissue Type Adherent Slough -Structure Exposed N/A -Texture (Jenny-wound Skin Appearance) Assessed, Localized Edema -Moisture (Jenny-wound Skin Appearance Assessed,Dry/ ) Scaly -Color (Jenny-wound Skin Appearance) Assessed, Hemosiderin Staining -Temperature (Jenny-wound Skin No Abnormality Appearance) (Pt Warm) -Tenderness on Palpation (Ejnny-wound No Skin Appearance) -Ulcer Cleansing Wound Cleanser -Foul Odor after Cleansing No -Anesthetic Used 5% Lidocaine Gel [Edema Assessment] -Lower Limb Edema Present Yes -Left Calf (cm) 47 -Left Ankle (cm) 26.5 WC - Nurse 2 - General Ulcer CM Notes Start: 11/04/18 15:48 Freq: Status: Active Protocol: Activity Type Activity Date Activity User E-Sign Co-Sign Detail Recorded Client Recorded Date Recorded By Document 11/25/18 16:18 AN [id number] 11/25/18 16:21 AN 11/25/18 16:18 Wound Center Nurse 2 [Procedure/Treatment] #5 left lower leg medial -Time 16:19 -Correct Patient Yes -Correct Side, Site, Position Yes -Correct Procedure Yes -Procedure Performed Yes -Type of Procedure Debridement -Clinical Debridement Subcutaneous -Post Debridement Size (cm) - Length 1.4 -Post Debridement Size (cm) - Width 0.7 -Post Debridement Size (cm) - Depth 0.1 -Total Square Cm 0.98 -Wound/Ulcer Outcome Not Healed -Ulcer Cleansing Rinsed/ Irrigated with Saline -Foul Odor after Cleansing No -Bioengineered Tissue Yes -Type of bioengineered Tissue EPIFIX -Bleeding Controlled with Pressure -Offloading Yes -Treatment Response Procedure Tolerated Well [See Physician Procedure note for Specifics] Pain Scale: 0-10 Numeric [Pain] -Is Patient Pain Free? Yes Musculoskeletal: No Tenderness to Palpation of Joints or Extremities, Muscle Wasting Neurological: - - Lack of normal epicritic sensation light touch at the ulcer site Psych/Mental Status: Normal Affect, Appropriate Debridement Note Post-Debridement Measurements/Treatment WC - Nurse 2 - General Ulcer CM Notes Start: 11/04/18 15:48 Freq: Status: Active Protocol: Activity Type Activity Date Activity User E-Sign Co-Sign Detail Recorded Client Recorded Date Recorded By Document 11/13/18 16:47 DV [id number] 11/13/18 16:51 DV Document 11/18/18 16:05 AN [id number] 11/18/18 16:06 AN Document 11/25/18 16:18 AN [id number] 11/25/18 16:21 AN 11/13/18 11/18/18 11/25/18 16:47 16:05 16:18 Wound Center Nurse 2 #5 left lower leg medial -Time 16:47 16:05 16:19 -Correct Patient Yes Yes Yes -Correct Side, Site, Position Yes Yes Yes -Correct Procedure Yes Yes Yes -Procedure Performed Yes Yes Yes -Type of Procedure Debridement Debridement Debridement -Clinical Debridement Subcutaneous Subcutaneous Subcutaneous -Post Debridement Size (cm) - Length 3.5 2.4 1.4 -Post Debridement Size (cm) - Width 2.5 1.5 0.7 -Post Debridement Size (cm) - Depth 0.1 0.1 0.1 -Total Square Cm 8.75 3.60 0.98 -Wound/Ulcer Outcome Not Healed Not Healed Not Healed -Ulcer Cleansing Rinsed/ Rinsed/ Rinsed/ Irrigated with Irrigated with Irrigated with Saline Saline Saline -Foul Odor after Cleansing No No No -Bioengineered Tissue Yes No Yes -Type of bioengineered Tissue EPIFIX EPIFIX -Expiration Date 03/31/23 -Product Lot Number [id number] -Percent Used 100 -Saline Lot Number [id number] -Topical Lidocaine (%) 5 -Bleeding Controlled with Pressure Pressure Pressure -Offloading No No Yes -Treatment Response Procedure Procedure Procedure Tolerated Well Tolerated Well Tolerated Well Pain Scale: 0-10 Numeric Is Patient Pain Free? Yes Yes Yes Wound debrided: leg Laterality: Left Type of Debridement: Excisional debridement Anesthesia Used: 5% Lidocaine Gel Depth: in the subcutaneous layer Percentage of wound debrided: 100 Instrument Used: #15 blade Tissue Removed: fibrous, devitalized subcutaneous, biofilm, slough Severity: Fat Layer Exposed Amount of bleeding with debridement: Mild Bleeding Controlled with: Pressure Patient tolerated procedure well Assessment/Plan Active Problems Lymphedema (Chronic) Venous insufficiency (chronic) (peripheral) (Chronic) Delayed wound healing (Chronic) Chronic ulcer of left lower extremity with fat layer exposed (Chronic) Assessment: Chronic and recurrent ulcer to the left ellison, returned. venous insufficiency. h/o DVT to left lower extremity, already treated. lymphedema. non compliance. delayed healing Plan: I reviewed and discussed her case. The ulcer site was debrided today as noted in the clinical panel. She has lack of gross local or systemic signs of illness. I do also recommend application of advanced wound healing product, epi fix. The purpose and indication, planned application, anticipated healing time and management were discussed in detail with the patient. This is medically necessary for limb salvage. An adequate arterial perfusion is present to support ulcer healing. She is failed other conservative standard of care wound healing plans. Verbal consent was obtained and this was applied according center protocol. This was secured in place with self-adhesive Adaptic touch. She was advised to keep this clean, dry, and intact until follow-up visit next week. She tolerated this well. To continue nutritional supplementation. It is noted she cannot afford Trevor supplementation and this is not covered under her insurance at this time. She is reassured there are no signs of infection. Her previous venous intervention with Dr. Machado is noted and appreciated. To continue surgery compression dressing; to avoid over tightening strap directly over the ulcer site to avoid pressure. To continue with lymphedema pumps up to twice daily and periodic elevation. To avoid idle standing or sitting. To continue elevation during work breaks; I agree this has helped with ulcer size reduction and edema as well. She will change her dressing daily at home. To continue periodic hourly elevation throughout the day. I recommend replacing the specialized compression garments with an updated pair of farrow wraps and this order will be placed at this time. I recommend a nutrition referral to optimize wound healing and reduce edema and weight. She was previously adamant that she will not attend; this is consistent with noncompliance. I explained the purpose and the benefits of this referral. To return to clinic in 1 week at the wound care center or call sooner if questions or concerns. I answered all of her questions today.
== END 2018-11-28 23:59 ==
LOC: WC 16:00
PROVIDERS: Family Provider Internal Medicine; PCP Internal Medicine; Visit Provider Podiatrist
DX: I87.2 Venous insufficiency (chronic) (peripheral) (principal); I89.0 Lymphedema, not elsewhere classified; L97.822 Non-pressure chronic ulcer of other part of left lower leg with fat layer exposed; Z86.718 Personal history of other venous thrombosis and embolism; Z91.19 Patient's noncompliance with other medical treatment and regimen
CPT/HCPCS: 15271; 29581; Q4186

== ENCOUNTER 2018-12-16 16:00 | Outpatient (RCR) | payer MEDICAID, SELFPAY ==
[2018-11-29 00:28] VITALS: BP 149/80; PULSE 67; RESP 18; TEMP 36.1
[2018-12-02 15:43] VITALS: BP 133/65; PULSE 75; RESP 18; TEMP 36.7
--- NOTE | 2018-12-02 16:49 | PN.PCM_ITS ---
(1) Chronic ulcer of left lower extremity with fat layer exposed Status: Chronic Current Visit: Yes Code(s): L97.922 - Non-pressure chronic ulcer of unspecified part of left lower leg with fat layer exposed (2) Lymphedema Status: Chronic Current Visit: Yes Code(s): I89.0 - Lymphedema, not elsewhere classified (3) Venous insufficiency (chronic) (peripheral) Status: Chronic Current Visit: Yes Code(s): I87.2 - Venous insufficiency (chronic) (peripheral) (4) Delayed wound healing Status: Chronic Current Visit: Yes Code(s): T14.8 - Other injury of unspecified body region Type of Wound Date of Service: 12/02/18 Chief Complaint: Chronic ulcer to the left lower extremity History of Wound: This 63 year old patient returns to the wound healing center for follow up of her chronic ulcer to her left ellison. She did have her venous procedure completed with vascular surgeon, Dr. Machado. She uses circaid wrap long term care pharmacist and compression pumps. She denies pain, fever, chill, nausea, vomiting. She continues with aggressive compression therapy as advised. She denies redness or odor. She denies redness or odor coming from the leg. she kept epi-fix in place last week as advised. Progress of Wound: Improving - Physical Exam Vital Signs Temp Pulse Resp BP 98.0 F 75 18 133/65 H 12/02/18 15:43 12/02/18 15:43 12/02/18 15:43 12/02/18 15:43 General: Alert, Oriented x3, Cooperative, No apparent distress Extremities: No cyanosis, Capillary Refill Less than 3 Seconds, No Calf Tenderness - Negative Castillo sign left, Diminished Peripheral Pulses, Edema Skin: Ulcer/ Wound - No purulence, erythema, streaking, odor, infection. There is significant peripheral epithelialization noted and there is now only a small distal granular base healthy ulcer noted. Wound Measurements and Assessment WC - Nurse 1 - General Ulcer Measurement Start: 12/02/18 15:43 Freq: Status: Active Protocol: Activity Type Activity Date Activity User E-Sign Co-Sign Detail Recorded Client Recorded Date Recorded By Document 12/02/18 15:43 JF [id number] 12/02/18 15:44 JEFF 12/02/18 15:43 Wound Center Nurse 1 [Ulcer Assessment] #5 left lower leg medial -Combined with other wound No -Current Size (cm) - Length 0.8 -Current Size (cm) - Width 0.4 -Current Size (cm) - Depth 0.2 -Total Square Cm 0.32 -Photo Taken Yes -Epithelialization Medium 34-66% -Tunneling No -Undermining/Tunneling No -Circular Undermining No -Exudate Amt Small -Exudate Type Serosanguineous -Wound Margin Indistinct, Non -Visible -Granulation Amt Medium (34-66%) -Granulation Quality Red -Slough/Fibrin Yes -Necrosis Amt Small (1-33%) -Necrotic Tissue Type Adherent Slough -Structure Exposed N/A -Texture (Jenny-wound Skin Appearance) Assessed, Localized Edema -Moisture (Jenny-wound Skin Appearance Assessed,Dry/ ) Scaly -Color (Jenny-wound Skin Appearance) Assessed, Hemosiderin Staining -Temperature (Jenny-wound Skin No Abnormality Appearance) (Pt Warm) -Tenderness on Palpation (Jenny-wound No Skin Appearance) -Ulcer Cleansing Wound Cleanser -Foul Odor after Cleansing No -Anesthetic Used 4% Lidocaine Solution,5% Lidocaine Gel [Edema Assessment] -Lower Limb Edema Present Yes -Left Calf (cm) 46 -Left Ankle (cm) 26 WC - Nurse 2 - General Ulcer CM Notes Start: 12/02/18 15:43 Freq: Status: Active Protocol: Activity Type Activity Date Activity User E-Sign Co-Sign Detail Recorded Client Recorded Date Recorded By Document 12/02/18 16:36 AN [id number] 12/02/18 16:39 AN 12/02/18 16:36 Wound Center Nurse 2 [Procedure/Treatment] #5 left lower leg medial -Time 16:37 -Correct Patient Yes -Correct Side, Site, Position Yes -Correct Procedure Yes -Procedure Performed Yes -Type of Procedure Debridement -Clinical Debridement Subcutaneous -Post Debridement Size (cm) - Length 0.2 -Post Debridement Size (cm) - Width 0.2 -Post Debridement Size (cm) - Depth 0.1 -Total Square Cm 0.04 -Wound/Ulcer Outcome Not Healed -Ulcer Cleansing Rinsed/ Irrigated with Saline -Foul Odor after Cleansing No -Bioengineered Tissue No -Bleeding Controlled with Pressure -Offloading Yes -Treatment Response Procedure Tolerated Well [See Physician Procedure note for Specifics] Pain Scale: 0-10 Numeric [Pain] -Is Patient Pain Free? Yes Musculoskeletal: No Tenderness to Palpation of Joints or Extremities, Muscle Wasting Lymphatic: - - Lymphedema noted bilateral lower extremities Neurological: - - Lack of normal sensation with ulcer manipulation Psych/Mental Status: Normal Affect, Appropriate Debridement Note Post-Debridement Measurements/Treatment WC - Nurse 2 - General Ulcer CM Notes Start: 12/02/18 15:43 Freq: Status: Active Protocol: Activity Type Activity Date Activity User E-Sign Co-Sign Detail Recorded Client Recorded Date Recorded By Document 12/02/18 16:36 AN [id number] 12/02/18 16:39 AN 12/02/18 16:36 Wound Center Nurse 2 #5 left lower leg medial -Time 16:37 -Correct Patient Yes -Correct Side, Site, Position Yes -Correct Procedure Yes -Procedure Performed Yes -Type of Procedure Debridement -Clinical Debridement Subcutaneous -Post Debridement Size (cm) - Length 0.2 -Post Debridement Size (cm) - Width 0.2 -Post Debridement Size (cm) - Depth 0.1 -Total Square Cm 0.04 -Wound/Ulcer Outcome Not Healed -Ulcer Cleansing Rinsed/ Irrigated with Saline -Foul Odor after Cleansing No -Bioengineered Tissue No -Bleeding Controlled with Pressure -Offloading Yes -Treatment Response Procedure Tolerated Well Pain Scale: 0-10 Numeric Is Patient Pain Free? Yes Wound debrided: anterior leg Laterality: Left Type of Debridement: Excisional debridement Anesthesia Used: 5% Lidocaine Gel Depth: in the subcutaneous layer Percentage of wound debrided: 100 Instrument Used: #15 blade Tissue Removed: fibrous, devitalized subcutaneous, biofilm, slough Severity: Fat Layer Exposed Amount of bleeding with debridement: Mild Bleeding Controlled with: Pressure Patient tolerated procedure well Assessment/Plan Active Problems Lymphedema (Chronic) Venous insufficiency (chronic) (peripheral) (Chronic) Delayed wound healing (Chronic) Chronic ulcer of left lower extremity with fat layer exposed (Chronic) Assessment: Chronic and recurrent ulcer to the left ellison. venous insufficiency. h/o DVT to left lower extremity, already treated. lymphedema. non compliance. delayed healing Plan: I reviewed and discussed her case. The ulcer site was debrided today as noted in the clinical panel. She has lack of gross local or systemic signs of illness. She is done well with advanced wound healing product application, epi- fix. I recommend changing the dressing daily at this upcoming week with Adaptic and hydrogel; this was applied today. An adequate arterial perfusion is present to support ulcer healing. To continue nutritional supplementation. It is noted she cannot afford Trevor supplementation and this is not covered under her insurance at this time. She is reassured there are no signs of infection. Her previous venous intervention with Dr. Machado is noted and appreciated. To continue surgery compression dressing; to avoid over tightening strap directly over the ulcer site to avoid pressure. To continue with lymphedema pumps up to twice daily and periodic elevation. To avoid idle standing or sitting. To continue elevation during work breaks; I agree this has helped with ulcer size reduction and edema as well. She will change her dressing daily at home. To continue periodic hourly elevation throughout the day. I recommend replacing the specialized compression garments with an updated pair of farrow wraps and this order will be placed at this time. I recommend a nutrition referral to optimize wound healing and reduce edema and weight. She was previously adamant that she will not attend; this is consistent with noncompliance. I explained the purpose and the benefits of this referral. To return to clinic in 1 week at the wound care center or call sooner if questions or concerns. I answered all of her questions today.
[2018-12-09 15:54] VITALS: BP 138/71; PULSE 79; RESP 18; TEMP 36.5
--- NOTE | 2018-12-09 17:06 | PCM.WC.PN ---
(1) Chronic ulcer of left lower extremity with fat layer exposed Status: Chronic Current Visit: Yes Code(s): L97.922 - Non-pressure chronic ulcer of unspecified part of left lower leg with fat layer exposed Comment: new on 12/09 visit (2) Lymphedema Status: Chronic Current Visit: Yes Code(s): I89.0 - Lymphedema, not elsewhere classified (3) Venous insufficiency (chronic) (peripheral) Status: Chronic Current Visit: Yes Code(s): I87.2 - Venous insufficiency (chronic) (peripheral) (4) Delayed wound healing Status: Chronic Current Visit: Yes Code(s): T14.8 - Other injury of unspecified body region Type of Wound Date of Service: 12/09/18 Chief Complaint: Chronic ulcer to the left lower extremity History of Wound: This 63 year old patient returns to the wound healing center for follow up of her chronic ulcer to her left ellison. She did have her venous procedure completed with vascular surgeon, Dr. Machado. 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 She denies pain, fever, chill, nausea, vomiting. She continues with aggressive compression therapy as advised. She denies redness or odor. She has a new ulcer noted today above the previous ulcer site. Her legs been swelling more when she is busy at work. Progress of Wound: Improving - Physical Exam Vital Signs Temp Pulse Resp BP 97.7 F L 79 18 138/71 H 12/09/18 15:54 12/09/18 15:54 12/09/18 15:54 12/09/18 15:54 General: Alert, Oriented x3, Cooperative, No apparent distress Extremities: No cyanosis, Capillary Refill Less than 3 Seconds, No Calf Tenderness - Negative Italo and Castillo sign bilateral, Diminished Peripheral Pulses, Edema - Lymphedema bilateral Skin: Ulcer/ Wound - No purulence, erythema, streaking, odor, infection. Peripheral skin is atrophic. New skin discontinuity superiorly located to the previous anterior leg ulcer site without deep exposure of tendon or bone, maceration, or infection Wound Measurements and Assessment WC - Nurse 1 - General Ulcer Measurement Start: 12/02/18 15:43 Freq: Status: Active Protocol: Activity Type Activity Date Activity User E-Sign Co-Sign Detail Recorded Client Recorded Date Recorded By Document 12/09/18 15:54 RB [id number] 12/09/18 15:59 RB 12/09/18 15:54 Wound Center Nurse 1 [Ulcer Assessment] #6 LLE ellison superior -Combined with other wound No -Current Size (cm) - Length 1.6 -Current Size (cm) - Width 0.8 -Current Size (cm) - Depth 0.1 -Total Square Cm 1.28 -Tunneling No -Undermining/Tunneling No -Circular Undermining No -Exudate Amt Small -Exudate Type Serosanguineous -Wound Margin Distinct, Outline Attached -Granulation Amt Medium (34-66%) -Granulation Quality [place],Red -Necrosis Amt Small (1-33%) -Necrotic Tissue Type Adherent Slough -Structure Exposed N/A -Texture (Jenny-wound Skin Appearance) Assessed -Moisture (Jenny-wound Skin Appearance Assessed ) -Color (Jenny-wound Skin Appearance) Assessed, Hemosiderin Staining -Temperature (Jenny-wound Skin No Abnormality Appearance) (Pt Warm) -Tenderness on Palpation (Jenny-wound No Skin Appearance) -Ulcer Cleansing Wound Cleanser -Foul Odor after Cleansing No -Anesthetic Used 5% Lidocaine Gel #5 left lower leg medial -Combined with other wound No -Current Size (cm) - Length 1.5 -Current Size (cm) - Width 0.6 -Current Size (cm) - Depth 0.1 -Total Square Cm 0.90 -Tunneling No -Undermining/Tunneling No -Circular Undermining No -Exudate Amt Small -Exudate Type Serosanguineous -Wound Margin Flat & Intact -Granulation Amt Large (67-100%) -Granulation Quality [place],Red -Slough/Fibrin Yes -Necrosis Amt Small (1-33%) -Necrotic Tissue Type Adherent Slough -Structure Exposed N/A -Texture (Jenny-wound Skin Appearance) Assessed -Moisture (Jenny-wound Skin Appearance Assessed ) -Color (Jenny-wound Skin Appearance) Hemosiderin Staining -Temperature (Jenny-wound Skin No Abnormality Appearance) (Pt Warm) -Tenderness on Palpation (Jenny-wound No Skin Appearance) -Ulcer Cleansing Wound Cleanser -Foul Odor after Cleansing No -Anesthetic Used 5% Lidocaine Gel [Edema Assessment] -Lower Limb Edema Present Yes -Left Calf (cm) 55 -Left Ankle (cm) 28.5 WC - Nurse 2 - General Ulcer CM Notes Start: 12/02/18 15:43 Freq: Status: Active Protocol: Activity Type Activity Date Activity User E-Sign Co-Sign Detail Recorded Client Recorded Date Recorded By Document 12/09/18 16:37 JEFF [id number] 12/09/18 16:39 12/09/18 16:37 Wound Center Nurse 2 [Procedure/Treatment] #6 LLE ellison superior -Time 16:37 -Correct Patient Yes -Correct Side, Site, Position Yes -Correct Procedure Yes -Procedure Performed Yes -Type of Procedure Debridement -Clinical Debridement Subcutaneous -Post Debridement Size (cm) - Length 1.6 -Post Debridement Size (cm) - Width 0.9 -Post Debridement Size (cm) - Depth 0.1 -Total Square Cm 1.44 -Wound/Ulcer Outcome Not Healed -Ulcer Cleansing Rinsed/ Irrigated with Saline -Foul Odor after Cleansing No -Bioengineered Tissue No -Bleeding Controlled with Pressure -Offloading No -Treatment Response Procedure Tolerated Well #5 left lower leg medial -Time 16:38 -Correct Patient Yes -Correct Side, Site, Position Yes -Correct Procedure Yes -Procedure Performed Yes -Type of Procedure Debridement -Clinical Debridement Subcutaneous -Post Debridement Size (cm) - Length 1.6 -Post Debridement Size (cm) - Width 0.6 -Post Debridement Size (cm) - Depth 0.1 -Total Square Cm 0.96 -Wound/Ulcer Outcome Not Healed -Ulcer Cleansing Rinsed/ Irrigated with Saline -Foul Odor after Cleansing No -Bioengineered Tissue No -Bleeding Controlled with Pressure -Offloading No -Treatment Response Procedure Tolerated Well [See Physician Procedure note for Specifics] Pain Scale: 0-10 Numeric [Pain] -Is Patient Pain Free? Yes Musculoskeletal: No Tenderness to Palpation of Joints or Extremities, Muscle Wasting Neurological: - - Lack of normal sensation via light touch left leg Psych/Mental Status: Normal Affect, Appropriate Debridement Note Post-Debridement Measurements/Treatment WC - Nurse 2 - General Ulcer CM Notes Start: 12/02/18 15:43 Freq: Status: Active Protocol: Activity Type Activity Date Activity User E-Sign Co-Sign Detail Recorded Client Recorded Date Recorded By Document 12/02/18 16:36 AN [id number] 12/02/18 16:39 AN Document 12/09/18 16:37 [id number] 12/09/18 16:39 12/02/18 12/09/18 16:36 16:37 Wound Center Nurse 2 #6 LLE ellison superior -Time 16:37 -Correct Patient Yes -Correct Side, Site, Position Yes -Correct Procedure Yes -Procedure Performed Yes -Type of Procedure Debridement -Clinical Debridement Subcutaneous -Post Debridement Size (cm) - Length 1.6 -Post Debridement Size (cm) - Width 0.9 -Post Debridement Size (cm) - Depth 0.1 -Total Square Cm 1.44 -Wound/Ulcer Outcome Not Healed -Ulcer Cleansing Rinsed/ Irrigated with Saline -Foul Odor after Cleansing No -Bioengineered Tissue No -Bleeding Controlled with Pressure -Offloading No -Treatment Response Procedure Tolerated Well #5 left lower leg medial -Time 16:37 16:38 -Correct Patient Yes Yes -Correct Side, Site, Position Yes Yes -Correct Procedure Yes Yes -Procedure Performed Yes Yes -Type of Procedure Debridement Debridement -Clinical Debridement Subcutaneous Subcutaneous -Post Debridement Size (cm) - Length 0.2 1.6 -Post Debridement Size (cm) - Width 0.2 0.6 -Post Debridement Size (cm) - Depth 0.1 0.1 -Total Square Cm 0.04 0.96 -Wound/Ulcer Outcome Not Healed Not Healed -Ulcer Cleansing Rinsed/ Rinsed/ Irrigated with Irrigated with Saline Saline -Foul Odor after Cleansing No No -Bioengineered Tissue No No -Bleeding Controlled with Pressure Pressure -Offloading Yes No -Treatment Response Procedure Procedure Tolerated Well Tolerated Well Pain Scale: 0-10 Numeric Is Patient Pain Free? Yes Yes Wound debrided: anterior leg (superior) Laterality: Left Type of Debridement: Excisional debridement Anesthesia Used: 5% Lidocaine Gel Depth: in the subcutaneous layer Percentage of wound debrided: 100 Instrument Used: #15 blade Tissue Removed: fibrous, devitalized subcutaneous, biofilm, slough Severity: Fat Layer Exposed Amount of bleeding with debridement: Mild Bleeding Controlled with: Pressure Patient tolerated procedure well - Additional Wound Wound debrided: anterior leg (inferior) Laterality: Left Type of Debridement: Excisional debridement Anesthesia Used: 5% Lidocaine Gel Depth: in the subcutaneous layer Percentage of wound debrided: 100 Instrument Used: #15 blade Tissue Removed: fibrous, devitalized subcutaneous, biofilm, slough Severity: Fat Layer Exposed Amount of bleeding with debridement: Mild Bleeding Controlled with: Pressure Patient tolerated procedure: Patient tolerated procedure well Assessment/Plan Active Problems Lymphedema (Chronic) Venous insufficiency (chronic) (peripheral) (Chronic) Delayed wound healing (Chronic) Chronic ulcer of left lower extremity with fat layer exposed (Chronic) new on 12/09 visit Assessment: Chronic and recurrent ulcer to the left ellison. venous insufficiency. h/o DVT to left lower extremity, already treated. lymphedema. non compliance. delayed healing Plan: I reviewed and discussed her case. The ulcer site was debrided today as noted in the clinical panel. The new ulcer site is noted. She has lack of gross local or systemic signs of illness. She is completed a course of epi fix, advanced wound healing product. I recommend changing the dressing daily at this upcoming week with Adaptic and hydrogel; this was applied today. An adequate arterial perfusion is present to support ulcer healing. To continue nutritional supplementation. It is noted she cannot afford Trevor supplementation and this is not covered under her insurance at this time. She is reassured there are no signs of infection. Her previous venous intervention with Dr. Machado is noted and appreciated. To continue surgery compression dressing; to avoid over tightening strap directly over the ulcer site to avoid pressure. To continue with lymphedema pumps up to twice daily and periodic elevation. To avoid idle standing or sitting. To continue elevation during work breaks; I agree this has helped with ulcer size reduction and edema as well. She will change her dressing daily at home. To continue periodic hourly elevation throughout the day. I recommend replacing the specialized compression garments with an updated pair of farrow wraps and this order was placed and she was not approved. I recommend a nutrition referral to optimize wound healing and reduce edema and weight. She was previously adamant that she will not attend; this is consistent with noncompliance. I explained the purpose and the benefits of this referral. To return to clinic in 1 week at the wound care center or call sooner if questions or concerns. I answered all of her questions today.
[2018-12-16 15:59] VITALS: BP 140/62; PULSE 75; RESP 16; TEMP 36.2
--- NOTE | 2018-12-16 16:35 | PN.PCM_ITS ---
(1) Chronic ulcer of left lower extremity with fat layer exposed Status: Chronic Current Visit: Yes Code(s): L97.922 - Non-pressure chronic ulcer of unspecified part of left lower leg with fat layer exposed Comment: new on 12/09 visit (2) Lymphedema Status: Chronic Current Visit: Yes Code(s): I89.0 - Lymphedema, not elsewhere classified (3) Venous insufficiency (chronic) (peripheral) Status: Chronic Current Visit: Yes Code(s): I87.2 - Venous insufficiency (chronic) (peripheral) (4) Delayed wound healing Status: Chronic Current Visit: Yes Code(s): T14.8 - Other injury of unsp ecified body region Type of Wound Date of Service: 12/16/18 Chief Complaint: Chronic ulcer to the left lower extremity History of Wound: This 63 year old patient returns to the wound healing center for follow up of her chronic ulcer to her left ellison. She did have her venous procedure completed with vascular surgeon, Dr. Machado. She uses circaid wrap terminal superintendent and compression pumps. She denies pain, fever, chill, nausea, vomiting. She continues with aggressive compression therapy as advised. She denies redness or odor. Her hours at work have recently been reduced to approximately 25/week and she thinks this is helping reduce her leg swelling. Progress of Wound: Improving - Physical Exam Vital Signs Temp Pulse Resp BP 97.1 F L 75 16 140/62 H 12/16/18 15:59 12/16/18 15:59 12/16/18 15:59 12/16/18 15:59 General: Alert, Oriented x3, Cooperative, No apparent distress Extremities: No cyanosis, Capillary Refill Less than 3 Seconds, No Calf Tenderness - Negative Castillo sign and compartments are soft left lower extremity, Diminished Peripheral Pulses, Edema Skin: Ulcer/ Wound - No purulence, erythema, streaking, odor, infection. The peripheral skin is hairless, atrophic, and hyperpigmented Wound Measurements and Assessment WC - Nurse 1 - General Ulcer Measurement Start: 12/02/18 15:43 Freq: Status: Active Protocol: Activity Type Activity Date Activity User E-Sign Co-Sign Detail Recorded Client Recorded Date Recorded By Document 12/16/18 15:59 [facility] [id number] 12/16/18 16:01 [facility] 09/18/19 15:59 Wound Center Nurse 1 [Ulcer Assessment] #6 LLE ellison superior -Combined with other wound No -Current Size (cm) - Length 1.8 -Current Size (cm) - Width 1 -Current Size (cm) - Depth 0.1 -Total Square Cm 1.8 -Photo Taken No -Epithelialization Small 1-33% -Tunneling No -Undermining/Tunneling No -Circular Undermining No -Exudate Amt Small -Exudate Type Serosanguineous -Wound Margin Flat & Intact -Granulation Amt Large (67-100%) -Granulation Quality Red -Slough/Fibrin Yes -Necrosis Amt Small (1-33%) -Necrotic Tissue Type Adherent Slough -Texture (Jenny-wound Skin Appearance) Assessed, Scarring -Moisture (Jenny-wound Skin Appearance Assessed,Dry/ ) Scaly -Color (Jenny-wound Skin Appearance) Assessed -Temperature (Jenny-wound Skin No Abnormality Appearance) (Pt Warm) -Tenderness on Palpation (Jenny-wound No Skin Appearance) -Ulcer Cleansing Rinsed/ Irrigated with Saline -Foul Odor after Cleansing No -Anesthetic Used 4% Lidocaine Solution #5 left lower leg medial -Combined with other wound No -Current Size (cm) - Length 1.6 -Current Size (cm) - Width 1.6 -Current Size (cm) - Depth 0.1 -Total Square Cm 2.56 -Photo Taken No -Epithelialization Small 1-33% -Tunneling No -Undermining/Tunneling No -Circular Undermining No -Exudate Amt Small -Exudate Type Serosanguineous -Wound Margin Flat & Intact -Granulation Amt Large (67-100%) -Granulation Quality Red -Slough/Fibrin Yes -Necrosis Amt Small (1-33%) -Necrotic Tissue Type Adherent Slough -Texture (Jenny-wound Skin Appearance) Assessed, Scarring -Moisture (Jenny-wound Skin Appearance Assessed,Dry/ ) Scaly -Color (Jenny-wound Skin Appearance) Assessed -Temperature (Jenny-wound Skin No Abnormality Appearance) (Pt Warm) -Tenderness on Palpation (Jenny-wound No Skin Appearance) -Ulcer Cleansing Rinsed/ Irrigated with Saline -Foul Odor after Cleansing No -Anesthetic Used 4% Lidocaine Solution [Edema Assessment] -Lower Limb Edema Present Yes -Left Calf (cm) 52 -Left Ankle (cm) 29 WC - Nurse 2 - General Ulcer CM Notes Start: 12/02/18 15:43 Freq: Status: Active Protocol: Activity Type Activity Date Activity User E-Sign Co-Sign Detail Recorded Client Recorded Date Recorded By Document 12/16/18 16:10 JF [id number] 12/16/18 16:11 JF 12/16/18 16:10 Wound Center Nurse 2 [Procedure/Treatment] #6 LLE ellison superior -Time 16:10 -Correct Patient Yes -Correct Side, Site, Position Yes -Correct Procedure Yes -Procedure Performed Yes -Type of Procedure Debridement -Clinical Debridement Subcutaneous -Post Debridement Size (cm) - Length 1.8 -Post Debridement Size (cm) - Width 1.1 -Post Debridement Size (cm) - Depth 0.1 -Total Square Cm 1.98 -Wound/Ulcer Outcome Not Healed -Ulcer Cleansing Rinsed/ Irrigated with Saline -Foul Odor after Cleansing No -Bioengineered Tissue No -Bleeding Controlled with Pressure -Offloading No -Treatment Response Procedure Tolerated Well #5 left lower leg medial -Time 16:10 -Correct Patient Yes -Correct Side, Site, Position Yes -Correct Procedure Yes -Procedure Performed Yes -Type of Procedure Debridement -Clinical Debridement Subcutaneous -Post Debridement Size (cm) - Length 1.6 -Post Debridement Size (cm) - Width 1.7 -Post Debridement Size (cm) - Depth 0.1 -Total Square Cm 2.72 -Wound/Ulcer Outcome Not Healed -Ulcer Cleansing Rinsed/ Irrigated with Saline -Foul Odor after Cleansing No -Bioengineered Tissue No -Bleeding Controlled with Pressure -Offloading No -Treatment Response Procedure Tolerated Well [See Physician Procedure note for Specifics] Pain Scale: 0-10 Numeric [Pain] -Is Patient Pain Free? Yes Musculoskeletal: No Tenderness to Palpation of Joints or Extremities, Muscle Wasting Neurological: - - Lack of epicritic sensation to light touch around the ulcer site Psych/Mental Status: Normal Affect, Appropriate Debridement Note Post-Debridement Measurements/Treatment WC - Nurse 2 - General Ulcer CM Notes Start: 12/02/18 15:43 Freq: Status: Active Protocol: Activity Type Activity Date Activity User E-Sign Co-Sign Detail Recorded Client Recorded Date Recorded By Document 12/02/18 16:36 AN [id number] 12/02/18 16:39 AN Document 12/09/18 16:37 [id number] 12/09/18 16:39 Document 12/16/18 16:10 JF [id number] 12/16/18 16:11 12/02/18 12/09/18 12/16/18 16:36 16:37 16:10 Wound Center Nurse 2 #6 [id number] ellison superior -Time 16:37 16:10 -Correct Patient Yes Yes -Correct Side, Site, Position Yes Yes -Correct Procedure Yes Yes -Procedure Performed Yes Yes -Type of Procedure Debridement Debridement -Clinical Debridement Subcutaneous Subcutaneous -Post Debridement Size (cm) - Length 1.6 1.8 -Post Debridement Size (cm) - Width 0.9 1.1 -Post Debridement Size (cm) - Depth 0.1 0.1 -Total Square Cm 1.44 1.98 -Wound/Ulcer Outcome Not Healed Not Healed -Ulcer Cleansing Rinsed/ Rinsed/ Irrigated with Irrigated with Saline Saline -Foul Odor after Cleansing No No -Bioengineered Tissue No No -Bleeding Controlled with Pressure Pressure -Offloading No No -Treatment Response Procedure Procedure Tolerated Well Tolerated Well #5 left lower leg medial -Time 16:37 16:38 16:10 -Correct Patient Yes Yes Yes -Correct Side, Site, Position Yes Yes Yes -Correct Procedure Yes Yes Yes -Procedure Performed Yes Yes Yes -Type of Procedure Debridement Debridement Debridement -Clinical Debridement Subcutaneous Subcutaneous Subcutaneous -Post Debridement Size (cm) - Length 0.2 1.6 1.6 -Post Debridement Size (cm) - Width 0.2 0.6 1.7 -Post Debridement Size (cm) - Depth 0.1 0.1 0.1 -Total Square Cm 0.04 0.96 2.72 -Wound/Ulcer Outcome Not Healed Not Healed Not Healed -Ulcer Cleansing Rinsed/ Rinsed/ Rinsed/ Irrigated with Irrigated with Irrigated with Saline Saline Saline -Foul Odor after Cleansing No No No -Bioengineered Tissue No No No -Bleeding Controlled with Pressure Pressure Pressure -Offloading Yes No No -Treatment Response Procedure Procedure Procedure Tolerated Well Tolerated Well Tolerated Well Pain Scale: 0-10 Numeric Is Patient Pain Free? Yes Yes Yes Wound debrided: anterior leg Laterality: Left Type of Debridement: Excisional debridement Anesthesia Used: 5% Lidocaine Gel Depth: in the subcutaneous layer Percentage of wound debrided: 100 Instrument Used: #15 blade Tissue Removed: fibrous, devitalized subcutaneous, biofilm, slough Severity: Fat Layer Exposed Amount of bleeding with debridement: Mild Bleeding Controlled with: Pressure Patient tolerated procedure well Assessment/Plan Active Problems Lymphedema (Chronic) Venous insufficiency (chronic) (peripheral) (Chronic) Delayed wound healing (Chronic) Chronic ulcer of left lower extremity with fat layer exposed (Chronic) new on 12/09 visit Assessment: Chronic and recurrent ulcer to the left ellison. venous insufficiency. h/o DVT to left lower extremity, already treated. lymphedema. non compliance. delayed healing Plan: I reviewed and discussed her case. The ulcer site was debrided today as noted in the clinical panel. She has lack of gross local or systemic signs of illness. She is completed a course of epi fix, advanced wound healing product. I recommend changing the dressing daily at this upcoming week with Adaptic and hydrogel; this was applied today. An adequate arterial perfusion is present to support ulcer healing. To continue nutritional supplementation. It is noted she cannot afford Trevor supplementation and this is not covered under her insurance at this time. She is reassured there are no signs of infection. Her previous venous intervention with Dr. Machado is noted and appreciated. To continue surgery compression dressing; to avoid over tightening strap directly over the ulcer site to avoid pressure. To continue with lymphedema pumps up to twice daily and periodic elevation. To avoid idle standing or sitting. To continue elevation during work breaks; I agree this has helped with ulcer size reduction and edema as well. She will change her dressing daily at home. To continue periodic hourly elevation throughout the day. I recommend replacing the specialized compression garments with an updated pair of farrow wraps and this order was placed and she was not approved. I recommend a nutrition referral to optimize wound healing and reduce edema and weight. She was previously adamant that she will not attend; this is consistent with noncompliance. I explained the purpose and the benefits of this referral. To return to clinic in 2 weeks at the wound care center or call sooner if questions or concerns. I answered all of her questions today.
== END 2018-12-28 23:59 ==
LOC: WC 16:00
PROVIDERS: Family Provider Internal Medicine; PCP Internal Medicine; Visit Provider Podiatrist
DX: I87.2 Venous insufficiency (chronic) (peripheral) (principal); I89.0 Lymphedema, not elsewhere classified; L97.822 Non-pressure chronic ulcer of other part of left lower leg with fat layer exposed; Z86.718 Personal history of other venous thrombosis and embolism; Z91.19 Patient's noncompliance with other medical treatment and regimen
CPT/HCPCS: 11042

== ENCOUNTER 2019-01-27 16:00 | Outpatient (RCR) | payer MEDICAID, SELFPAY ==
[2018-12-29 00:31] VITALS: BP 140/62; PULSE 75; RESP 16; TEMP 36.2
[2018-12-30 15:40] VITALS: BP 135/70; PULSE 66; RESP 18; TEMP 36.2
--- NOTE | 2018-12-30 21:19 | PN.PCM_ITS ---
(1) Chronic ulcer of left lower extremity with fat layer exposed Status: Chronic Current Visit: Yes Code(s): L97.922 - Non-pressure chronic ulcer of unspecified part of left lower leg with fat layer exposed Comment: new on 12/09 visit (2) Lymphedema Status: Chronic Current Visit: Yes Code(s): I89.0 - Lymphedema, not elsewhere classified (3) Venous insufficiency (chronic) (peripheral) Status: Chronic Current Visit: Yes Code(s): I87.2 - Venous insufficiency (chronic) (peripheral) (4) Delayed wound healing Status: Chronic Current Visit: Yes Code(s): T14.8XXD - Other injury of u nspecified body region, subsequent encounter Type of Wound Date of Service: 12/30/18 Chief Complaint: Chronic ulcer to the left lower extremity History of Wound: This 63 year old patient returns to the wound healing center for follow up of her chronic ulcer to her left ellison. She did have her venous procedure completed with vascular surgeon, Dr. Machado. She uses circaid wrap terminal carman and compression pumps. She denies pain, fever, chill, nausea, vomiting. She continues with aggressive compression therapy as advised. She denies redness or odor. Her hours at work continue to be reduced to approximately 25/week and she thinks this is helping reduce her leg swelling. Progress of Wound: Improving - Physical Exam Vital Signs Temp Pulse Resp BP 97.1 F L 66 18 135/70 H 12/30/18 15:40 12/30/18 15:40 12/30/18 15:40 12/30/18 15:40 General: Alert, Oriented x3, Cooperative, No apparent distress Extremities: No cyanosis, Capillary Refill Less than 3 Seconds, No Calf Tenderness, Diminished Peripheral Pulses, Edema Skin: Ulcer/ Wound - No purulence, erythema, string, odor, infection. Peripheral skin is hairless and atrophic and hyperpigmented Wound Measurements and Assessment WC - Nurse 1 - General Ulcer Measurement Start: 12/30/18 15:40 Freq: Status: Active Protocol: Activity Type Activity Date Activity User E-Sign Co-Sign Detail Recorded Client Recorded Date Recorded By Document 12/30/18 15:40 RB [id number] 12/30/18 15:45 RB 12/30/18 15:40 Wound Center Nurse 1 [Ulcer Assessment] #6 LLE ellison superior -Combined with other wound No -Current Size (cm) - Length 1.4 -Current Size (cm) - Width 1.2 -Current Size (cm) - Depth 0.1 -Total Square Cm 1.68 -Tunneling No -Undermining/Tunneling No -Circular Undermining No -Exudate Amt Small -Exudate Type Serosanguineous -Wound Margin Distinct, Outline Attached -Granulation Amt Large (67-100%) -Granulation Quality Red -Slough/Fibrin Yes -Necrosis Amt Small (1-33%) -Necrotic Tissue Type Adherent Slough -Structure Exposed N/A -Texture (Chaya-wound Skin Appearance) Assessed -Moisture (Chaya-wound Skin Appearance Assessed ) -Color (Chaya-wound Skin Appearance) Assessed -Temperature (Chaya-wound Skin No Abnormality Appearance) (Pt Warm) -Tenderness on Palpation (Chaya-wound No Skin Appearance) -Ulcer Cleansing Wound Cleanser -Foul Odor after Cleansing No -Anesthetic Used 4% Lidocaine Solution #5 left lower leg medial -Combined with other wound No -Current Size (cm) - Length 1.5 -Current Size (cm) - Width 1.6 -Current Size (cm) - Depth 0.1 -Total Square Cm 2.40 -Photo Taken No -Tunneling No -Undermining/Tunneling No -Circular Undermining No -Exudate Amt Small -Exudate Type Serosanguineous -Wound Margin Flat & Intact -Granulation Amt Large (67-100%) -Granulation Quality Red -Slough/Fibrin Yes -Necrosis Amt Small (1-33%) -Necrotic Tissue Type Adherent Slough -Structure Exposed N/A -Texture (Chaya-wound Skin Appearance) Assessed -Moisture (Chaya-wound Skin Appearance Assessed ) -Color (Chaya-wound Skin Appearance) Assessed -Temperature (Chaya-wound Skin No Abnormality Appearance) (Pt Warm) -Tenderness on Palpation (Chaya-wound No Skin Appearance) -Ulcer Cleansing Wound Cleanser -Foul Odor after Cleansing No -Anesthetic Used 4% Lidocaine Solution [Edema Assessment] -Lower Limb Edema Present Yes -Left Calf (cm) 51.6 -Left Ankle (cm) 28.5 WC - Nurse 2 - General Ulcer CM Notes Start: 12/30/18 15:40 Freq: Status: Active Protocol: Activity Type Activity Date Activity User E-Sign Co-Sign Detail Recorded Client Recorded Date Recorded By Document 12/30/18 17:55 AN [id number] 12/30/18 17:57 AN 12/30/18 17:55 Wound Center Nurse 2 [Procedure/Treatment] #6 KWADWO ellison superior -Time 16:00 -Correct Patient Yes -Correct Side, Site, Position Yes -Correct Procedure Yes -Procedure Performed Yes -Type of Procedure Debridement -Clinical Debridement Subcutaneous -Post Debridement Size (cm) - Length 1.5 -Post Debridement Size (cm) - Width 1.3 -Post Debridement Size (cm) - Depth 0.1 -Total Square Cm 1.95 -Wound/Ulcer Outcome Not Healed -Ulcer Cleansing Rinsed/ Irrigated with Saline -Foul Odor after Cleansing No -Bioengineered Tissue No -Bleeding Controlled with Pressure -Offloading No -Treatment Response Procedure Tolerated Well #5 left lower leg medial -Time 16:00 -Correct Patient Yes -Correct Side, Site, Position Yes -Correct Procedure Yes -Procedure Performed Yes -Type of Procedure Debridement -Clinical Debridement Subcutaneous -Post Debridement Size (cm) - Length 1.6 -Post Debridement Size (cm) - Width 1.7 -Post Debridement Size (cm) - Depth 0.1 -Total Square Cm 2.72 -Wound/Ulcer Outcome Not Healed -Bleeding Controlled with Pressure -Offloading No -Treatment Response Procedure Tolerated Well [See Physician Procedure note for Specifics] Pain Scale: 0-10 Numeric [Pain] -Is Patient Pain Free? Yes Musculoskeletal: No Tenderness to Palpation of Joints or Extremities, Muscle Wasting, - - Compartment soft to palpate Neurological: - - Lack of normal epicritic sensation to the ulcer and chaya-ulcer site left leg Psych/Mental Status: Normal Affect, Appropriate Debridement Note Post-Debridement Measurements/Treatment WC - Nurse 2 - General Ulcer CM Notes Start: 12/30/18 15:40 Freq: Status: Active Protocol: Activity Type Activity Date Activity User E-Sign Co-Sign Detail Recorded Client Recorded Date Recorded By Document 12/30/18 17:55 AN [id number] 12/30/18 17:57 AN 12/30/18 17:55 Wound Center Nurse 2 #6 KWADWO ellison superior -Time 16:00 -Correct Patient Yes -Correct Side, Site, Position Yes -Correct Procedure Yes -Procedure Performed Yes -Type of Procedure Debridement -Clinical Debridement Subcutaneous -Post Debridement Size (cm) - Length 1.5 -Post Debridement Size (cm) - Width 1.3 -Post Debridement Size (cm) - Depth 0.1 -Total Square Cm 1.95 -Wound/Ulcer Outcome Not Healed -Ulcer Cleansing Rinsed/ Irrigated with Saline -Foul Odor after Cleansing No -Bioengineered Tissue No -Bleeding Controlled with Pressure -Offloading No -Treatment Response Procedure Tolerated Well #5 left lower leg medial -Time 16:00 -Correct Patient Yes -Correct Side, Site, Position Yes -Correct Procedure Yes -Procedure Performed Yes -Type of Procedure Debridement -Clinical Debridement Subcutaneous -Post Debridement Size (cm) - Length 1.6 -Post Debridement Size (cm) - Width 1.7 -Post Debridement Size (cm) - Depth 0.1 -Total Square Cm 2.72 -Wound/Ulcer Outcome Not Healed -Bleeding Controlled with Pressure -Offloading No -Treatment Response Procedure Tolerated Well Pain Scale: 0-10 Numeric Is Patient Pain Free? Yes Wound debrided: anterior leg Laterality: Left Type of Debridement: Excisional debridement Anesthesia Used: 5% Lidocaine Gel Depth: in the subcutaneous layer Percentage of wound debrided: 100 Instrument Used: #15 blade Tissue Removed: fibrous, devitalized subcutaneous, biofilm, slough Severity: Fat Layer Exposed Amount of bleeding with debridement: Mild Bleeding Controlled with: Pressure Patient tolerated procedure well Assessment/Plan Active Problems Lymphedema (Chronic) Venous insufficiency (chronic) (peripheral) (Chronic) Delayed wound healing (Chronic) Chronic ulcer of left lower extremity with fat layer exposed (Chronic) new on 12/09 visit Assessment: Chronic and recurrent ulcer to the left ellison. venous insufficiency. h/o DVT to left lower extremity, already treated. lymphedema. non compliance. delayed healing Plan: I reviewed and discussed her case. The ulcer site was debrided today as noted in the clinical panel. She has lack of gross local or systemic signs of illness. She is completed a course of epi fix, advanced wound healing product. I recommend changing the dressing daily at this upcoming week with Adaptic and hydrogel; this was applied today. An adequate arterial perfusion is present to support ulcer healing. To continue nutritional supplementation. It is noted she cannot afford Trevor supplementation and this is not covered under her insurance at this time. She is reassured there are no signs of infection. Her previous venous intervention with Dr. Machado is noted and appreciated. To continue surgery compression dressing; to avoid over tightening strap directly over the ulcer site to avoid pressure. To continue with lymphedema pumps up to twice daily and periodic elevation. To avoid idle standing or sitting. To continue elevation during work breaks; I agree this has helped with ulcer size reduction and edema as well. She will change her dressing daily at home. To continue periodic hourly elevation throughout the day. I recommend replacing the specialized compression garments with an updated pair of farrow wraps and this order was placed and she was not approved. I recommend a nutrition referral to optimize wound healing and reduce edema and weight. She was previously adamant that she will not attend; this is consistent with noncompliance. I explained the purpose and the benefits of this referral. To return to clinic in 1 week at the wound care center or call sooner if questions or concerns. I answered all of her questions today.
[2019-01-06 15:38] VITALS: BP 115/61; PULSE 70; RESP 18; TEMP 36.4
--- NOTE | 2019-01-06 16:01 | PN.PCM_ITS ---
(1) Chronic ulcer of left lower extremity with fat layer exposed Status: Chronic Current Visit: Yes Code(s): L97.922 - Non-pressure chronic ulcer of unspecified part of left lower leg with fat layer exposed Comment: new on 12/09 visit (2) Lymphedema Status: Chronic Current Visit: Yes Code(s): I89.0 - Lymphedema, not elsewhere classified (3) Venous insufficiency (chronic) (peripheral) Status: Chronic Current Visit: Yes Code(s): I87.2 - Venous insufficiency (chronic) (peripheral) (4) Delayed wound healing Status: Chronic Current Visit: Yes Code(s): T14.8XXD - Other injury of u nspecified body region, subsequent encounter Type of Wound Date of Service: 01/06/19 Chief Complaint: Chronic ulcer to the left lower extremity History of Wound: This 63 year old patient returns to the wound healing center for follow up of her chronic ulcer to her left ellison. She uses circaid wrap long-term and compression pumps. She denies pain, fever, chill, nausea, vomiting. She continues with aggressive compression therapy as advised. She denies redness or odor. Progress of Wound: Improving - Physical Exam Vital Signs Temp Pulse Resp BP 97.5 F L 70 18 115/61 01/06/19 15:38 01/06/19 15:38 01/06/19 15:38 01/06/19 15:38 General: Alert, Oriented x3, Cooperative, No apparent distress Extremities: No cyanosis, Capillary Refill Less than 3 Seconds, No Calf Tenderness - Negative Italo and Castillo sign bilateral. Compartments are soft to palpate bilateral., Diminished Peripheral Pulses, Edema Skin: Ulcer/ Wound - No purulence, erythema, string, odor, infection. Ulcer bed is granular and there is no deep tissue exposure maceration. The peripheral skin is hairless, atrophic, and hypopigmented Wound Measurements and Assessment WC - Nurse 1 - General Ulcer Measurement Start: 12/30/18 15:40 Freq: Status: Active Protocol: Activity Type Activity Date Activity User E-Sign Co-Sign Detail Recorded Client Recorded Date Recorded By Document 01/06/19 15:38 JF [id number] 01/06/19 15:40 JEFF 01/06/19 15:38 Wound Center Nurse 1 [Ulcer Assessment] #6 LLE ellison superior -Combined with other wound No -Current Size (cm) - Length 2.2 -Current Size (cm) - Width 1.7 -Current Size (cm) - Depth 0.1 -Total Square Cm 3.74 -Photo Taken No -Epithelialization Small 1-33% -Tunneling No -Undermining/Tunneling No -Circular Undermining No -Exudate Amt Small -Exudate Type Serosanguineous -Wound Margin Flat & Intact -Granulation Amt Large (67-100%) -Granulation Quality Red -Slough/Fibrin Yes -Necrosis Amt Small (1-33%) -Necrotic Tissue Type Adherent Slough -Structure Exposed N/A -Texture (Jenny-wound Skin Appearance) Assessed, Localized Edema ,Scarring -Moisture (Jenny-wound Skin Appearance Assessed,Dry/ ) Scaly -Color (Jenny-wound Skin Appearance) Assessed -Temperature (Jenny-wound Skin No Abnormality Appearance) (Pt Warm) -Tenderness on Palpation (Jenny-wound No Skin Appearance) -Ulcer Cleansing Rinsed/ Irrigated with Saline -Foul Odor after Cleansing No -Anesthetic Used 5% Lidocaine Gel #5 left lower leg medial -Combined with other wound No -Current Size (cm) - Length 1.3 -Current Size (cm) - Width 0.9 -Current Size (cm) - Depth 0.1 -Total Square Cm 1.17 -Photo Taken No -Epithelialization Small 1-33% -Tunneling No -Undermining/Tunneling No -Circular Undermining No -Exudate Amt Small -Exudate Type Serosanguineous -Wound Margin Flat & Intact -Granulation Amt Medium (34-66%) -Granulation Quality Red -Slough/Fibrin Yes -Necrosis Amt Small (1-33%) -Necrotic Tissue Type Adherent Slough -Structure Exposed N/A -Texture (Jenny-wound Skin Appearance) Assessed, Localized Edema ,Scarring -Moisture (Jenny-wound Skin Appearance Assessed,Dry/ ) Scaly -Color (Jenny-wound Skin Appearance) Assessed, Ecchymosis, Hemosiderin Staining -Temperature (Jenny-wound Skin No Abnormality Appearance) (Pt Warm) -Tenderness on Palpation (Jenny-wound No Skin Appearance) -Ulcer Cleansing Rinsed/ Irrigated with Saline -Foul Odor after Cleansing No -Anesthetic Used 5% Lidocaine Gel [Edema Assessment] -Lower Limb Edema Present Yes -Left Calf (cm) 51.3 -Left Ankle (cm) 29.0 WC - Nurse 2 - General Ulcer CM Notes Start: 12/30/18 15:40 Freq: Status: Active Protocol: Activity Type Activity Date Activity User E-Sign Co-Sign Detail Recorded Client Recorded Date Recorded By Document 01/06/19 15:47 AN [id number] 01/06/19 15:50 AN 01/06/19 15:47 Wound Center Nurse 2 [Procedure/Treatment] #6 LLE ellison superior -Time 15:48 -Correct Patient Yes -Correct Side, Site, Position Yes -Correct Procedure Yes -Procedure Performed Yes -Type of Procedure Debridement -Clinical Debridement Subcutaneous -Post Debridement Size (cm) - Length 2.3 -Post Debridement Size (cm) - Width 1.8 -Post Debridement Size (cm) - Depth 0.1 -Total Square Cm 4.14 -Wound/Ulcer Outcome Not Healed -Ulcer Cleansing Rinsed/ Irrigated with Saline -Foul Odor after Cleansing No -Bioengineered Tissue No -Bleeding Controlled with Pressure -Treatment Response Procedure Tolerated Well #5 left lower leg medial -Time 15:49 -Correct Patient Yes -Correct Side, Site, Position Yes -Correct Procedure Yes -Procedure Performed Yes -Type of Procedure Debridement -Clinical Debridement Subcutaneous -Post Debridement Size (cm) - Length 1.4 -Post Debridement Size (cm) - Width 1.0 -Post Debridement Size (cm) - Depth 0.1 -Total Square Cm 1.40 -Wound/Ulcer Outcome Not Healed -Ulcer Cleansing Rinsed/ Irrigated with Saline -Foul Odor after Cleansing No -Bioengineered Tissue No -Bleeding Controlled with Pressure -Offloading No -Treatment Response Procedure Tolerated Well [See Physician Procedure note for Specifics] Pain Scale: 0-10 Numeric [Pain] -Is Patient Pain Free? Yes Musculoskeletal: No Tenderness to Palpation of Joints or Extremities, Muscle Wasting Neurological: - - Normal epicritic sensation light touch Psych/Mental Status: Normal Affect, Appropriate Debridement Note Post-Debridement Measurements/Treatment WC - Nurse 2 - General Ulcer CM Notes Start: 12/30/18 15:40 Freq: Status: Active Protocol: Activity Type Activity Date Activity User E-Sign Co-Sign Detail Recorded Client Recorded Date Recorded By Document 12/30/18 17:55 AN [id number] 12/30/18 17:57 AN Document 01/06/19 15:47 AN [id number] 01/06/19 15:50 AN 12/30/18 01/06/19 17:55 15:47 Wound Center Nurse 2 #6 LLE ellison superior -Time 16:00 15:48 -Correct Patient Yes Yes -Correct Side, Site, Position Yes Yes -Correct Procedure Yes Yes -Procedure Performed Yes Yes -Type of Procedure Debridement Debridement -Clinical Debridement Subcutaneous Subcutaneous -Post Debridement Size (cm) - Length 1.5 2.3 -Post Debridement Size (cm) - Width 1.3 1.8 -Post Debridement Size (cm) - Depth 0.1 0.1 -Total Square Cm 1.95 4.14 -Wound/Ulcer Outcome Not Healed Not Healed -Ulcer Cleansing Rinsed/ Rinsed/ Irrigated with Irrigated with Saline Saline -Foul Odor after Cleansing No No -Bioengineered Tissue No No -Bleeding Controlled with Pressure Pressure -Offloading No -Treatment Response Procedure Procedure Tolerated Well Tolerated Well #5 left lower leg medial -Time 16:00 15:49 -Correct Patient Yes Yes -Correct Side, Site, Position Yes Yes -Correct Procedure Yes Yes -Procedure Performed Yes Yes -Type of Procedure Debridement Debridement -Clinical Debridement Subcutaneous Subcutaneous -Post Debridement Size (cm) - Length 1.6 1.4 -Post Debridement Size (cm) - Width 1.7 1.0 -Post Debridement Size (cm) - Depth 0.1 0.1 -Total Square Cm 2.72 1.40 -Wound/Ulcer Outcome Not Healed Not Healed -Ulcer Cleansing Rinsed/ Irrigated with Saline -Foul Odor after Cleansing No -Bioengineered Tissue No -Bleeding Controlled with Pressure Pressure -Offloading No No -Treatment Response Procedure Procedure Tolerated Well Tolerated Well Pain Scale: 0-10 Numeric Is Patient Pain Free? Yes Yes Wound debrided: anterior leg Laterality: Left Type of Debridement: Excisional debridement Anesthesia Used: 5% Lidocaine Gel Depth: in the subcutaneous layer Percentage of wound debrided: 100 Instrument Used: #15 blade Tissue Removed: fibrous, devitalized subcutaneous, biofilm, slough Severity: Fat Layer Exposed Amount of bleeding with debridement: Mild Bleeding Controlled with: Pressure Patient tolerated procedure well Assessment/Plan Active Problems Lymphedema (Chronic) Venous insufficiency (chronic) (peripheral) (Chronic) Delayed wound healing (Chronic) Chronic ulcer of left lower extremity with fat layer exposed (Chronic) new on 12/09 visit Assessment: Chronic and recurrent ulcer to the left ellison. venous insufficiency. h/o DVT to left lower extremity, already treated. lymphedema. non compliance. delayed healing Plan: I reviewed and discussed her case. The ulcer site was debrided today as noted in the clinical panel. She has lack of gross local or systemic signs of illness. She is completed a course of epi fix, advanced wound healing product. I recommend changing the dressing daily at this upcoming week with Adaptic and hydrogel; this was applied today. Adequate arterial perfusion is present to support ulcer healing. To continue nutritional supplementation. It is noted she cannot afford Trevor supplementation and this is not covered under her insurance at this time. She is reassured there are no signs of infection. Her previous venous intervention with Dr. Machado is noted and appreciated. I do recommend follow-up with Dr. Machado to see if additional intervention is an option and for maintenance follow-up. She is advised to schedule. To continue surgery compression dressing; to avoid over tightening strap directly over the ulcer site to avoid pressure. To continue with lymphedema pumps up to twice daily and periodic elevation. To avoid idle standing or sitting. To continue elevation during work breaks; I agree this has helped with ulcer size reduction and edema as well. She will change her dressing daily at home. To continue periodic hourly elevation throughout the day. I recommend replacing the specialized compression garments with an updated pair of farrow wraps and this order was placed and she was not approved. I recommend a nutrition referral to optimize wound healing and reduce edema and weight. She was previously adamant that she will not attend; this is consistent with noncompliance. I explained the purpose and the benefits of this referral. To return to clinic in 1 week at the wound care center or call sooner if questions or concerns. I answered all of her questions today.
[2019-01-13 15:41] VITALS: BP 139/74; PULSE 76; RESP 16; TEMP 35.5
--- NOTE | 2019-01-13 16:04 | PN.PCM_ITS ---
(1) Chronic ulcer of left lower extremity with fat layer exposed Status: Chronic Current Visit: Yes Code(s): L97.922 - Non-pressure chronic ulcer of unspecified part of left lower leg with fat layer exposed Comment: new on 12/09 visit (2) Lymphedema Status: Chronic Current Visit: Yes Code(s): I89.0 - Lymphedema, not elsewhere classified (3) Venous insufficiency (chronic) (peripheral) Status: Chronic Current Visit: Yes Code(s): I87.2 - Venous insufficiency (chronic) (peripheral) (4) Delayed wound healing Status: Chronic Current Visit: Yes Code(s): T14.8XXD - Other injury of u nspecified body region, subsequent encounter Type of Wound Date of Service: 01/15/19 Chief Complaint: Chronic ulcer to the left lower extremity History of Wound: This 63 year old patient returns to the wound healing center for follow up of her chronic ulcer to her left ellison. She uses circaid wrap senior care and compression pumps. She denies pain, fever, chill, nausea, vomiting. She continues with aggressive compression therapy as advised. She denies redness or odor. Progress of Wound: Improving - Physical Exam Vital Signs Temp Pulse Resp BP 96 F L 76 16 139/74 H 01/13/19 15:41 01/13/19 15:41 01/13/19 15:41 01/13/19 15:41 General: Alert, Oriented x3, Cooperative, No apparent distress Extremities: No cyanosis, Capillary Refill Less than 3 Seconds, No Calf Tenderness - negative tonya and palencia signs left, Diminished Peripheral Pulses, Edema Skin: Ulcer/ Wound - no purulence, no erythema, no streaking, no odor , no necrosis, no deep tissue expsure, no infection. peripheral skin is hairless and atrophic with peripheral ulcer hyperpigmentation is noted Wound Measurements and Assessment WC - Nurse 1 - General Ulcer Measurement Start: 12/30/18 15:40 Freq: Status: Active Protocol: Activity Type Activity Date Activity User E-Sign Co-Sign Detail Recorded Client Recorded Date Recorded By Document 01/13/19 15:41 BMF [id number] 01/13/19 15:48 BMF 01/13/19 15:41 Wound Center Nurse 1 [Ulcer Assessment] #6 LLE ellison superior -Combined with other wound No -Current Size (cm) - Length 2.3 -Current Size (cm) - Width 1.9 -Current Size (cm) - Depth 0.1 -Total Square Cm 4.37 -Photo Taken No -Epithelialization Small 1-33% -Tunneling No -Undermining/Tunneling No -Circular Undermining No -Exudate Amt Small -Exudate Type Serosanguineous -Wound Margin Distinct, Outline Attached -Granulation Amt Medium (34-66%) -Granulation Quality Red -Slough/Fibrin Yes -Necrosis Amt Medium (34-66%) -Necrotic Tissue Type Adherent Slough -Texture (Chaya-wound Skin Appearance) Assessed, Scarring -Moisture (Chaya-wound Skin Appearance Assessed,Dry/ ) Scaly -Color (Chaya-wound Skin Appearance) Assessed, Hemosiderin Staining -Temperature (Chaya-wound Skin No Abnormality Appearance) (Pt Warm) -Tenderness on Palpation (Chaya-wound No Skin Appearance) -Ulcer Cleansing Rinsed/ Irrigated with Saline -Foul Odor after Cleansing No -Anesthetic Used 4% Lidocaine Solution #5 left lower leg medial -Combined with other wound No -Current Size (cm) - Length 1 -Current Size (cm) - Width 0.9 -Current Size (cm) - Depth 0.1 -Total Square Cm 0.9 -Photo Taken No -Epithelialization Small 1-33% -Tunneling No -Undermining/Tunneling No -Circular Undermining No -Exudate Amt Small -Exudate Type Serosanguineous -Wound Margin Distinct, Outline Attached -Granulation Amt Large (67-100%) -Granulation Quality Red -Slough/Fibrin Yes -Necrosis Amt Small (1-33%) -Necrotic Tissue Type Adherent Slough -Texture (Chaya-wound Skin Appearance) Assessed, Scarring -Moisture (Chaya-wound Skin Appearance Assessed,Dry/ ) Scaly -Color (Chaya-wound Skin Appearance) Assessed, Hemosiderin Staining -Temperature (Chaya-wound Skin No Abnormality Appearance) (Pt Warm) -Tenderness on Palpation (Chaya-wound No Skin Appearance) -Ulcer Cleansing Rinsed/ Irrigated with Saline -Foul Odor after Cleansing No -Anesthetic Used 4% Lidocaine Solution [Edema Assessment] -Lower Limb Edema Present Yes -Left Calf (cm) 50 -Left Ankle (cm) 29.6 WC - Nurse 2 - General Ulcer CM Notes Start: 12/30/18 15:40 Freq: Status: Active Protocol: Activity Type Activity Date Activity User E-Sign Co-Sign Detail Recorded Client Recorded Date Recorded By Document 01/13/19 15:58 AN [id number] 01/13/19 16:01 AN 01/13/19 15:58 Wound Center Nurse 2 [Procedure/Treatment] #6 LLE ellison superior -Time 15:59 -Correct Patient Yes -Correct Side, Site, Position Yes -Correct Procedure Yes -Procedure Performed Yes -Type of Procedure Debridement -Clinical Debridement Subcutaneous -Post Debridement Size (cm) - Length 2.4 -Post Debridement Size (cm) - Width 2.0 -Post Debridement Size (cm) - Depth 0.1 -Total Square Cm 4.80 -Wound/Ulcer Outcome Not Healed -Ulcer Cleansing Rinsed/ Irrigated with Saline -Foul Odor after Cleansing No -Bioengineered Tissue No -Bleeding Controlled with Pressure -Offloading No -Treatment Response Procedure Tolerated Well #5 left lower leg medial -Time 15:59 -Correct Patient Yes -Correct Side, Site, Position Yes -Correct Procedure Yes -Procedure Performed Yes -Type of Procedure Debridement -Clinical Debridement Subcutaneous [See Physician Procedure note for Specifics] Pain Scale: 0-10 Numeric [Pain] -Is Patient Pain Free? Yes Musculoskeletal: No Tenderness to Palpation of Joints or Extremities, Muscle Wasting Neurological: - - lack of normal epicritic sensation via light touch at chaya ulcer site Psych/Mental Status: Normal Affect, Appropriate Debridement Note Post-Debridement Measurements/Treatment WC - Nurse 2 - General Ulcer CM Notes Start: 12/30/18 15:40 Freq: Status: Active Protocol: Activity Type Activity Date Activity User E-Sign Co-Sign Detail Recorded Client Recorded Date Recorded By Document 12/30/18 17:55 AN [id number] 12/30/18 17:57 AN Document 01/06/19 15:47 AN [id number] 01/06/19 15:50 AN Document 01/13/19 15:58 AN [id number] 01/13/19 16:01 AN 12/30/18 01/06/19 01/13/19 17:55 15:47 15:58 Wound Center Nurse 2 #6 LLE ellison superior -Time 16:00 15:48 15:59 -Correct Patient Yes Yes Yes -Correct Side, Site, Position Yes Yes Yes -Correct Procedure Yes Yes Yes -Procedure Performed Yes Yes Yes -Type of Procedure Debridement Debridement Debridement -Clinical Debridement Subcutaneous Subcutaneous Subcutaneous -Post Debridement Size (cm) - Length 1.5 2.3 2.4 -Post Debridement Size (cm) - Width 1.3 1.8 2.0 -Post Debridement Size (cm) - Depth 0.1 0.1 0.1 -Total Square Cm 1.95 4.14 4.80 -Wound/Ulcer Outcome Not Healed Not Healed Not Healed -Ulcer Cleansing Rinsed/ Rinsed/ Rinsed/ Irrigated with Irrigated with Irrigated with Saline Saline Saline -Foul Odor after Cleansing No No No -Bioengineered Tissue No No No -Bleeding Controlled with Pressure Pressure Pressure -Offloading No No -Treatment Response Procedure Procedure Procedure Tolerated Well Tolerated Well Tolerated Well #5 left lower leg medial -Time 16:00 15:49 15:59 -Correct Patient Yes Yes Yes -Correct Side, Site, Position Yes Yes Yes -Correct Procedure Yes Yes Yes -Procedure Performed Yes Yes Yes -Type of Procedure Debridement Debridement Debridement -Clinical Debridement Subcutaneous Subcutaneous Subcutaneous -Post Debridement Size (cm) - Length 1.6 1.4 -Post Debridement Size (cm) - Width 1.7 1.0 -Post Debridement Size (cm) - Depth 0.1 0.1 -Total Square Cm 2.72 1.40 -Wound/Ulcer Outcome Not Healed Not Healed -Ulcer Cleansing Rinsed/ Irrigated with Saline -Foul Odor after Cleansing No -Bioengineered Tissue No -Bleeding Controlled with Pressure Pressure -Offloading No No -Treatment Response Procedure Procedure Tolerated Well Tolerated Well Pain Scale: 0-10 Numeric Is Patient Pain Free? Yes Yes Yes Wound debrided: leg Laterality: Left Type of Debridement: Excisional debridement Anesthesia Used: 5% Lidocaine Gel Depth: in the subcutaneous layer Percentage of wound debrided: 100 Instrument Used: #15 blade Tissue Removed: fibrous, devitalized subcutaneous, biofilm, slough Severity: Fat Layer Exposed Amount of bleeding with debridement: Mild Bleeding Controlled with: Pressure Patient tolerated procedure well Assessment/Plan Active Problems Lymphedema (Chronic) Venous insufficiency (chronic) (peripheral) (Chronic) Delayed wound healing (Chronic) Chronic ulcer of left lower extremity with fat layer exposed (Chronic) new on 12/09 visit Assessment: Chronic and recurrent ulcer to the left ellison. venous insufficiency. h/o DVT to left lower extremity, already treated. lymphedema. non compliance. delayed healing Plan: I reviewed and discussed her case. The ulcer site was debrided today as noted in the clinical panel. She has lack of gross local or systemic signs of illness. She is completed a course of epi fix, advanced wound healing product. I recommend changing the dressing daily at this upcoming week with Adaptic and hydrogel; this was applied today. Adequate arterial perfusion is present to support ulcer healing. To continue nutritional supplementation. It is noted she cannot afford Trevor supplementation and this is not covered under her insurance at this time. She is reassured there are no signs of infection. Her previous venous intervention with Dr. Machado is noted and appreciated. I do recommend follow-up with Dr. Machado to see if additional intervention is an option and for maintenance follow-up. She is advised to schedule again today to investigate additional opportunities. Continue circaid wraps. I recommend an updated advanced gradient compression dressing because these lose their elasticity over time. Prior authorization is in process for farrow wraps which tends to fit longer legs better. This was discussed again today. To continue with lymphedema pumps up to twice daily and periodic elevation. To avoid idle standing or sitting. To continue elevation during work breaks; I agree this has helped with ulcer size reduction and edema as well. She will change her dressing daily at home. To continue periodic hourly elevation throughout the day. I recommend replacing the specialized compression garments with an updated pair of farrow wraps and this order was placed and she was not approved. I recommend a nutrition referral to optimize wound healing and reduce edema and weight. She was previously adamant that she will not attend; this is consistent with noncompliance. I explained the purpose and the benefits of this referral. To return to clinic in 1 week at the wound care center or call sooner if questions or concerns. I answered all of her questions today.
[2019-01-20 15:55] VITALS: BP 140/60; PULSE 62; RESP 16; TEMP 36.1
--- NOTE | 2019-01-20 16:52 | PN.PCM_ITS ---
(1) Chronic ulcer of left lower extremity with fat layer exposed Status: Chronic Current Visit: Yes Code(s): L97.922 - Non-pressure chronic ulcer of unspecified part of left lower leg with fat layer exposed Comment: new on 12/09 visit (2) Lymphedema Status: Chronic Current Visit: Yes Code(s): I89.0 - Lymphedema, not elsewhere classified (3) Venous insufficiency (chronic) (peripheral) Status: Chronic Current Visit: Yes Code(s): I87.2 - Venous insufficiency (chronic) (peripheral) (4) Delayed wound healing Status: Chronic Current Visit: Yes Code(s): T14.8XXD - Other injury of u nspecified body region, subsequent encounter Type of Wound Date of Service: 01/20/19 Chief Complaint: Chronic ulcer to the left lower extremity History of Wound: This 63 year old patient returns to the wound healing center for follow up of her chronic ulcer to her left ellison. She uses circaid wrap retirement and compression pumps. She denies pain, fever, chill, nausea, vomiting. She continues with aggressive compression therapy as advised. She denies redness or odor. She did not schedule her follow-up with Dr. Machado as advised. Progress of Wound: Improving - Physical Exam Vital Signs Temp Pulse Resp BP 96.9 F L 62 16 140/60 H 01/20/19 15:55 01/20/19 15:55 01/20/19 15:55 01/20/19 15:55 General: Alert, Oriented x3, Cooperative, No apparent distress Extremities: No cyanosis, Capillary Refill Less than 3 Seconds, No Calf Tenderness - Negative Italo and Castillo sign, Diminished Peripheral Pulses, Edema - Consistent with venous insufficiency and lymphedema Skin: Ulcer/ Wound - No purulence, erythema, streaking, odor, infection. The peripheral skin is hairless, atrophic, and hyperpigmented. There is no necrosis or deep tissue exposed. The ulcer bed has improved with granulation status Wound Measurements and Assessment WC - Nurse 1 - General Ulcer Measurement Start: 12/30/18 15:40 Freq: Status: Active Protocol: Activity Type Activity Date Activity User E-Sign Co-Sign Detail Recorded Client Recorded Date Recorded By Document 01/20/19 15:55 [facility] [id number] 01/20/19 16:00 [facility] 01/20/19 15:55 Wound Center Nurse 1 [Ulcer Assessment] #6 LLE ellison superior -Combined with other wound No -Current Size (cm) - Length 5.9 -Current Size (cm) - Width 1.7 -Current Size (cm) - Depth 0.1 -Total Square Cm 10.03 -Photo Taken No -Epithelialization Small 1-33% -Tunneling No -Undermining/Tunneling No -Circular Undermining No -Exudate Amt Small -Exudate Type Serosanguineous -Wound Margin Flat & Intact -Granulation Amt Medium (34-66%) -Granulation Quality Red -Slough/Fibrin Yes -Necrosis Amt Medium (34-66%) -Necrotic Tissue Type Adherent Slough -Texture (Jenny-wound Skin Appearance) Assessed, Scarring -Moisture (Jenny-wound Skin Appearance Assessed,Dry/ ) Scaly -Color (Jenny-wound Skin Appearance) Assessed, Hemosiderin Staining -Temperature (Jenny-wound Skin No Abnormality Appearance) (Pt Warm) -Tenderness on Palpation (Jenny-wound No Skin Appearance) -Ulcer Cleansing Rinsed/ Irrigated with Saline -Foul Odor after Cleansing No -Anesthetic Used 4% Lidocaine Solution [Edema Assessment] -Lower Limb Edema Present Yes -Left Calf (cm) 48.1 -Left Ankle (cm) 28.5 WC - Nurse 2 - General Ulcer CM Notes Start: 12/30/18 15:40 Freq: Status: Active Protocol: Activity Type Activity Date Activity User E-Sign Co-Sign Detail Recorded Client Recorded Date Recorded By Document 01/20/19 16:46 AN [id number] 01/20/19 16:47 AN 01/20/19 16:46 Wound Center Nurse 2 [Procedure/Treatment] #6 [id number] ellison superior -Time 16:47 -Correct Patient Yes -Correct Side, Site, Position Yes -Correct Procedure Yes -Procedure Performed Yes -Type of Procedure Debridement -Clinical Debridement Subcutaneous -Post Debridement Size (cm) - Length 6.0 -Post Debridement Size (cm) - Width 1.8 -Post Debridement Size (cm) - Depth 0.1 -Total Square Cm 10.80 -Wound/Ulcer Outcome Not Healed -Ulcer Cleansing Rinsed/ Irrigated with Saline -Foul Odor after Cleansing No -Bioengineered Tissue No -Bleeding Controlled with Pressure -Offloading No -Treatment Response Procedure Tolerated Well [See Physician Procedure note for Specifics] Pain Scale: 0-10 Numeric [Pain] -Is Patient Pain Free? Yes Musculoskeletal: No Tenderness to Palpation of Joints or Extremities, Muscle Wasting Neurological: - - Lack of normal epicritic sensation at the ulcer site Psych/Mental Status: Normal Affect, Appropriate Debridement Note Post-Debridement Measurements/Treatment WC - Nurse 2 - General Ulcer CM Notes Start: 12/30/18 15:40 Freq: Status: Active Protocol: Activity Type Activity Date Activity User E-Sign Co-Sign Detail Recorded Client Recorded Date Recorded By Document 12/30/18 17:55 AN [id number] 12/30/18 17:57 AN Document 01/06/19 15:47 AN [id number] 01/06/19 15:50 AN Document 01/13/19 15:58 AN [id number] 01/13/19 16:01 AN Document 01/20/19 16:46 AN [id number] 01/20/19 16:47 AN 12/30/18 01/06/19 01/13/19 17:55 15:47 15:58 Wound Center Nurse 2 #6 LLE ellison superior -Time 16:00 15:48 15:59 -Correct Patient Yes Yes Yes -Correct Side, Site, Position Yes Yes Yes -Correct Procedure Yes Yes Yes -Procedure Performed Yes Yes Yes -Type of Procedure Debridement Debridement Debridement -Clinical Debridement Subcutaneous Subcutaneous Subcutaneous -Post Debridement Size (cm) - Length 1.5 2.3 2.4 -Post Debridement Size (cm) - Width 1.3 1.8 2.0 -Post Debridement Size (cm) - Depth 0.1 0.1 0.1 -Total Square Cm 1.95 4.14 4.80 -Wound/Ulcer Outcome Not Healed Not Healed Not Healed -Ulcer Cleansing Rinsed/ Rinsed/ Rinsed/ Irrigated with Irrigated with Irrigated with Saline Saline Saline -Foul Odor after Cleansing No No No -Bioengineered Tissue No No No -Bleeding Controlled with Pressure Pressure Pressure -Offloading No No -Treatment Response Procedure Procedure Procedure Tolerated Well Tolerated Well Tolerated Well #5 left lower leg medial -Time 16:00 15:49 15:59 -Correct Patient Yes Yes Yes -Correct Side, Site, Position Yes Yes Yes -Correct Procedure Yes Yes Yes -Procedure Performed Yes Yes Yes -Type of Procedure Debridement Debridement Debridement -Clinical Debridement Subcutaneous Subcutaneous Subcutaneous -Post Debridement Size (cm) - Length 1.6 1.4 -Post Debridement Size (cm) - Width 1.7 1.0 -Post Debridement Size (cm) - Depth 0.1 0.1 -Total Square Cm 2.72 1.40 -Wound/Ulcer Outcome Not Healed Not Healed -Ulcer Cleansing Rinsed/ Irrigated with Saline -Foul Odor after Cleansing No -Bioengineered Tissue No -Bleeding Controlled with Pressure Pressure -Offloading No No -Treatment Response Procedure Procedure Tolerated Well Tolerated Well Pain Scale: 0-10 Numeric Is Patient Pain Free? Yes Yes Yes 01/20/19 16:46 Wound Center Nurse 2 #6 LLE ellison superior -Time 16:47 -Correct Patient Yes -Correct Side, Site, Position Yes -Correct Procedure Yes -Procedure Performed Yes -Type of Procedure Debridement -Clinical Debridement Subcutaneous -Post Debridement Size (cm) - Length 6.0 -Post Debridement Size (cm) - Width 1.8 -Post Debridement Size (cm) - Depth 0.1 -Total Square Cm 10.80 -Wound/Ulcer Outcome Not Healed -Ulcer Cleansing Rinsed/ Irrigated with Saline -Foul Odor after Cleansing No -Bioengineered Tissue No -Bleeding Controlled with Pressure -Offloading No -Treatment Response Procedure Tolerated Well #5 left lower leg medial -Time -Correct Patient -Correct Side, Site, Position -Correct Procedure -Procedure Performed -Type of Procedure -Clinical Debridement -Post Debridement Size (cm) - Length -Post Debridement Size (cm) - Width -Post Debridement Size (cm) - Depth -Total Square Cm -Wound/Ulcer Outcome -Ulcer Cleansing -Foul Odor after Cleansing -Bioengineered Tissue -Bleeding Controlled with -Offloading -Treatment Response Pain Scale: 0-10 Numeric Is Patient Pain Free? Yes Wound debrided: anterior leg Laterality: Left Type of Debridement: Excisional debridement Anesthesia Used: 5% Lidocaine Gel Depth: in the subcutaneous layer Percentage of wound debrided: - - 35% Instrument Used: #15 blade Tissue Removed: fibrous, devitalized subcutaneous, biofilm, slough Severity: Fat Layer Exposed Amount of bleeding with debridement: Mild Bleeding Controlled with: Pressure Patient tolerated procedure well Assessment/Plan Active Problems Lymphedema (Chronic) Venous insufficiency (chronic) (peripheral) (Chronic) Delayed wound healing (Chronic) Chronic ulcer of left lower extremity with fat layer exposed (Chronic) new on 12/09 visit Assessment: Chronic and recurrent ulcer to the left ellison. venous insufficiency. h/o DVT to left lower extremity, already treated. lymphedema. non compliance. delayed healing Plan: I reviewed and discussed her case. The ulcer site was debrided today as noted in the clinical panel. She has lack of gross local or systemic signs of illness. She is completed a course of epi fix, advanced wound healing product. I recommend changing the dressing daily at this upcoming week with Adaptic and hydrogel; this was applied today. Adequate arterial perfusion is present to support ulcer healing. To continue nutritional supplementation. It is noted she cannot afford Trevor supplementation and this is not covered under her insurance at this time. She is reassured there are no signs of infection. Her previous venous intervention with Dr. Machado is noted and appreciated. I do recommend follow-up with Dr. Machado to see if additional intervention is an option and for maintenance follow-up. She is advised to schedule again today to investigate additional opportunities. Continue circaid wraps. I recommend an updated advanced gradient compression dressing because these lose their elasticity over time. Prior authorization is in process for farrow wraps which tends to fit longer legs better. This was discussed again today. To continue with lymphedema pumps up to twice daily and periodic elevation. To avoid idle standing or sitting. To continue elevation during work breaks; I agree this has helped with ulcer size reduction and edema as well. She will change her dressing daily at home. To continue periodic hourly elevation throughout the day. I recommend replacing the specialized compression garments with an updated pair of farrow wraps and this order was placed and she was not approved. I recommend a nutrition referral to optimize wound healing and reduce edema and weight. She was previously adamant that she will not attend; this is consistent with noncompliance. I explained the purpose and the benefits of this referral. To return to clinic in 1 week at the wound care center or call sooner if questions or concerns. I answered all of her questions today.
[2019-01-27 15:43] VITALS: BP 125/67; PULSE 63; RESP 18; TEMP 36.2
--- NOTE | 2019-01-27 17:14 | PN.PCM_ITS ---
(1) Chronic ulcer of left lower extremity with fat layer exposed Status: Chronic Code(s): L97.922 - Non-pressure chronic ulcer of unspecified part of left lower leg with fat layer exposed Comment: new on 12/09 visit (2) Lymphedema Status: Chronic Code(s): I89.0 - Lymphedema, not elsewhere classified (3) Venous insufficiency (chronic) (peripheral) Status: Chronic Code(s): I87.2 - Venous insufficiency (chronic) (peripheral) (4) Delayed wound healing Status: Chronic Code(s): T14.8XXD - Other injury of unspecified body region, subsequent encounter Type of Wound Date of Service: 01/27/19 Chief Complaint: Chronic ulcer to the left lower extremity History of Wound: This 63 year old patient returns to the wound healing center for follow up of her chronic ulcer to her left ellison. She uses circaid wrap mcc and compression pumps. She denies pain, fever, chill, nausea, vomiting. She continues with aggressive compression therapy as advised. She denies redness or odor. She did not schedule her follow-up with Dr. Machado as advised. Progress of Wound: Improving - Physical Exam Vital Signs Temp Pulse Resp BP 97.1 F L 63 18 125/67 H 01/27/19 15:43 01/27/19 15:43 01/27/19 15:43 01/27/19 15:43 General: Alert, Oriented x3, Cooperative, No apparent distress HEENT: Atraumatic Extremities: No cyanosis, Capillary Refill Less than 3 Seconds, No Calf Tenderness - Negative Italo and Castillo signs left, Diminished Peripheral Pulses, Edema Skin: Ulcer/ Wound - No purulence, erythema, streaking, odor, infection. Granular base. Peripheral skin is hyperpigmented, hairless, and atrophic Wound Measurements and Assessment WC - Nurse 1 - General Ulcer Measurement Start: 12/30/18 15:40 Freq: Status: Active Protocol: Activity Type Activity Date Activity User E-Sign Co-Sign Detail Recorded Client Recorded Date Recorded By Document 01/27/19 15:43 RB [id number] 01/27/19 15:45 RB 01/27/19 15:43 Wound Center Nurse 1 [Ulcer Assessment] #6 LLE ellison superior -Combined with other wound No -Current Size (cm) - Length 1.8 -Current Size (cm) - Width 1.3 -Current Size (cm) - Depth 0.2 -Total Square Cm 2.34 -Tunneling No -Undermining/Tunneling No -Circular Undermining No -Exudate Amt Small -Exudate Type Serosanguineous -Wound Margin Flat & Intact -Granulation Amt Small (1-33%) -Granulation Quality Winding [place] -Slough/Fibrin Yes -Necrosis Amt Large (67-100%) -Necrotic Tissue Type Adherent Slough -Structure Exposed N/A -Texture (Jenny-wound Skin Appearance) Assessed -Moisture (Jenny-wound Skin Appearance Assessed ) -Color (Jenny-wound Skin Appearance) Hemosiderin Staining -Temperature (Jenny-wound Skin No Abnormality Appearance) (Pt Warm) -Tenderness on Palpation (Jenny-wound No Skin Appearance) -Ulcer Cleansing Wound Cleanser -Foul Odor after Cleansing No -Anesthetic Used 4% Lidocaine Solution [Edema Assessment] -Lower Limb Edema Present Yes -Left Calf (cm) 50 -Left Ankle (cm) 28.7 WC - Nurse 2 - General Ulcer CM Notes Start: 12/30/18 15:40 Freq: Status: Active Protocol: Activity Type Activity Date Activity User E-Sign Co-Sign Detail Recorded Client Recorded Date Recorded By Document 01/27/19 16:37 AN [id number] 01/27/19 16:39 AN 01/27/19 16:37 Wound Center Nurse 2 [Procedure/Treatment] #6 LLE ellison superior -Time 16:39 -Correct Patient Yes -Correct Side, Site, Position Yes -Correct Procedure Yes -Procedure Performed Yes -Type of Procedure Debridement -Clinical Debridement Subcutaneous -Post Debridement Size (cm) - Length 1.9 -Post Debridement Size (cm) - Width 1.4 -Post Debridement Size (cm) - Depth 0.2 -Total Square Cm 2.66 -Wound/Ulcer Outcome Not Healed -Ulcer Cleansing Rinsed/ Irrigated with Saline -Foul Odor after Cleansing No -Bioengineered Tissue No -Bleeding Controlled with Pressure -Offloading Yes -Treatment Response Procedure Tolerated Well [See Physician Procedure note for Specifics] Pain Scale: 0-10 Numeric [Pain] -Is Patient Pain Free? Yes Musculoskeletal: No Tenderness to Palpation of Joints or Extremities, Muscle Wasting Neurological: - - Lack of normal sensation to ulcer manipulation left Psych/Mental Status: Normal Affect, Appropriate Debridement Note Post-Debridement Measurements/Treatment WC - Nurse 2 - General Ulcer CM Notes Start: 12/30/18 15:40 Freq: Status: Active Protocol: Activity Type Activity Date Activity User E-Sign Co-Sign Detail Recorded Client Recorded Date Recorded By Document 12/30/18 17:55 AN [id number] 12/30/18 17:57 AN Document 01/06/19 15:47 AN [id number] 01/06/19 15:50 AN Document 01/13/19 15:58 AN [id number] 01/13/19 16:01 AN Document 01/20/19 16:46 AN [id number] 01/20/19 16:47 AN Document 01/27/19 16:37 AN [id number] 01/27/19 16:39 AN 12/30/18 01/06/19 01/13/19 17:55 15:47 15:58 Wound Center Nurse 2 #6 LLE ellison superior -Time 16:00 15:48 15:59 -Correct Patient Yes Yes Yes -Correct Side, Site, Position Yes Yes Yes -Correct Procedure Yes Yes Yes -Procedure Performed Yes Yes Yes -Type of Procedure Debridement Debridement Debridement -Clinical Debridement Subcutaneous Subcutaneous Subcutaneous -Post Debridement Size (cm) - Length 1.5 2.3 2.4 -Post Debridement Size (cm) - Width 1.3 1.8 2.0 -Post Debridement Size (cm) - Depth 0.1 0.1 0.1 -Total Square Cm 1.95 4.14 4.80 -Wound/Ulcer Outcome Not Healed Not Healed Not Healed -Ulcer Cleansing Rinsed/ Rinsed/ Rinsed/ Irrigated with Irrigated with Irrigated with Saline Saline Saline -Foul Odor after Cleansing No No No -Bioengineered Tissue No No No -Bleeding Controlled with Pressure Pressure Pressure -Offloading No No -Treatment Response Procedure Procedure Procedure Tolerated Well Tolerated Well Tolerated Well #5 left lower leg medial -Time 16:00 15:49 15:59 -Correct Patient Yes Yes Yes -Correct Side, Site, Position Yes Yes Yes -Correct Procedure Yes Yes Yes -Procedure Performed Yes Yes Yes -Type of Procedure Debridement Debridement Debridement -Clinical Debridement Subcutaneous Subcutaneous Subcutaneous -Post Debridement Size (cm) - Length 1.6 1.4 -Post Debridement Size (cm) - Width 1.7 1.0 -Post Debridement Size (cm) - Depth 0.1 0.1 -Total Square Cm 2.72 1.40 -Wound/Ulcer Outcome Not Healed Not Healed -Ulcer Cleansing Rinsed/ Irrigated with Saline -Foul Odor after Cleansing No -Bioengineered Tissue No -Bleeding Controlled with Pressure Pressure -Offloading No No -Treatment Response Procedure Procedure Tolerated Well Tolerated Well Pain Scale: 0-10 Numeric Is Patient Pain Free? Yes Yes Yes 01/20/19 01/27/19 16:46 16:37 Wound Center Nurse 2 #6 LLE ellison superior -Time 16:47 16:39 -Correct Patient Yes Yes -Correct Side, Site, Position Yes Yes -Correct Procedure Yes Yes -Procedure Performed Yes Yes -Type of Procedure Debridement Debridement -Clinical Debridement Subcutaneous Subcutaneous -Post Debridement Size (cm) - Length 6.0 1.9 -Post Debridement Size (cm) - Width 1.8 1.4 -Post Debridement Size (cm) - Depth 0.1 0.2 -Total Square Cm 10.80 2.66 -Wound/Ulcer Outcome Not Healed Not Healed -Ulcer Cleansing Rinsed/ Rinsed/ Irrigated with Irrigated with Saline Saline -Foul Odor after Cleansing No No -Bioengineered Tissue No No -Bleeding Controlled with Pressure Pressure -Offloading No Yes -Treatment Response Procedure Procedure Tolerated Well Tolerated Well #5 left lower leg medial -Time -Correct Patient -Correct Side, Site, Position -Correct Procedure -Procedure Performed -Type of Procedure -Clinical Debridement -Post Debridement Size (cm) - Length -Post Debridement Size (cm) - Width -Post Debridement Size (cm) - Depth -Total Square Cm -Wound/Ulcer Outcome -Ulcer Cleansing -Foul Odor after Cleansing -Bioengineered Tissue -Bleeding Controlled with -Offloading -Treatment Response Pain Scale: 0-10 Numeric Is Patient Pain Free? Yes Yes Wound debrided: leg Laterality: Left Type of Debridement: Excisional debridement Anesthesia Used: 5% Lidocaine Gel Depth: in the subcutaneous layer Percentage of wound debrided: 100 Instrument Used: #15 blade Tissue Removed: fibrous, devitalized subcutaneous, biofilm, slough Severity: Fat Layer Exposed Amount of bleeding with debridement: Mild Bleeding Controlled with: Pressure Patient tolerated procedure well Assessment/Plan Assessment: Chronic and recurrent ulcer to the left ellison. venous insufficiency. h/o DVT to left lower extremity, already treated. lymphedema. non compliance. delayed healing Plan: I reviewed and discussed her case. The ulcer site was debrided today as noted in the clinical panel. She has lack of gross local or systemic signs of illness. She is completed a course of epi fix, advanced wound healing product. I recommend changing the dressing daily at this upcoming week with Adaptic and hydrogel; this was applied today. Adequate arterial perfusion is present to support ulcer healing. To continue nutritional supplementation. It is noted she cannot afford Trevor supplementation and this is not covered under her insurance at this time. She is reassured there are no signs of infection. Her previous venous intervention with Dr. Machado is noted and appreciated. I do recommend follow-up with Dr. Machado to see if additional intervention is an option and for maintenance follow-up. She is advised to schedule again today to investigate additional opportunities. Continue circaid wraps. I recommend an updated advanced gradient compression dressing because these lose their elasticity over time. Prior authorization is in process for farrow wraps which tends to fit longer legs better. This was discussed again today. To continue with lymphedema pumps up to twice daily and periodic elevation. To avoid idle standing or sitting. To continue elevation during work breaks; I agree this has helped with ulcer size reduction and edema as well. She will change her dressing daily at home. To continue periodic hourly elevation throughout the day. I recommend replacing the specialized compression garments with an updated pair of farrow wraps and this order was placed and she was not approved. I recommend a nutrition referral to optimize wound healing and reduce edema and weight. She was previously adamant that she will not attend; this is consistent with noncompliance. I explained the purpose and the benefits of this referral. To return to clinic in 1 week at the wound care center or call sooner if questions or concerns. I answered all of her questions today.
== END 2019-01-28 23:59 ==
LOC: WC 16:00
PROVIDERS: Family Provider Internal Medicine; PCP Internal Medicine; Visit Provider Podiatrist
DX: I87.2 Venous insufficiency (chronic) (peripheral) (principal); I89.0 Lymphedema, not elsewhere classified; L97.822 Non-pressure chronic ulcer of other part of left lower leg with fat layer exposed; M79.89 Other specified soft tissue disorders; Z86.718 Personal history of other venous thrombosis and embolism; Z91.19 Patient's noncompliance with other medical treatment and regimen
CPT/HCPCS: 11042

== ENCOUNTER 2019-02-17 16:00 | Outpatient (RCR) | payer MEDICAID, SELFPAY ==
[2019-01-29 00:33] VITALS: BP 125/67; PULSE 63; RESP 18; TEMP 36.2
[2019-02-03 15:54] VITALS: BP 142/75; PULSE 68; RESP 16; TEMP 36.6
--- NOTE | 2019-02-03 16:46 | PN.PCM_ITS ---
(1) Chronic ulcer of left lower extremity with fat layer exposed Status: Chronic Current Visit: Yes Code(s): L97.922 - Non-pressure chronic ulcer of unspecified part of left lower leg with fat layer exposed Comment: new on 12/09 visit (2) Non-compliance Status: Chronic Current Visit: Yes Code(s): Z91.19 - Patient's noncompliance with other medical treatment and regimen (3) Lymphedema Status: Chronic Current Visit: Yes Code(s): I89.0 - Lymphedema, not elsewhere classified (4) Venous insufficiency (chronic) (peripheral) Status: Chronic Current Visit: Yes Code(s): I87.2 - Venous insufficiency (chronic) (peripheral) (5) Delayed wound healing Status: Chronic Current Visit: Yes Code(s): T14.8XXD - Other injury of unspecified body region, subsequent encounter Type of Wound Date of Service: 02/03/19 Chief Complaint: Chronic ulcer to the left lower extremity History of Wound: This 63 year old patient returns to the wound healing center for follow up of her chronic ulcer to her left ellison. She uses circaid wrap usp and compression pumps. She denies pain, fever, chill, nausea, vomiting. She continues with aggressive compression therapy as advised. She denies redness or odor. She did not schedule her follow-up with Dr. Machado as advised. Progress of Wound: Improving - Physical Exam Vital Signs Temp Pulse Resp BP 97.8 F 68 16 142/75 H 02/03/19 15:54 02/03/19 15:54 02/03/19 15:54 02/03/19 15:54 General: Alert, Oriented x3, Cooperative, No apparent distress HEENT: Atraumatic Extremities: No cyanosis, Capillary Refill Less than 3 Seconds, No Calf Tenderness, Diminished Peripheral Pulses, Edema Skin: Ulcer/ Wound - No purulence, erythema, streaking, odor, infection. Peripheral skin is hairless, atrophic, and with hyperpigmentation. There is no necrosis or deep tissue exposure noted Wound Measurements and Assessment WC - Nurse 1 - General Ulcer Measurement Start: 02/03/19 15:54 Freq: Status: Active Protocol: Activity Type Activity Date Activity User E-Sign Co-Sign Detail Recorded Client Recorded Date Recorded By Document 02/03/19 15:54 [facility] [id number] 02/03/19 15:57 BMF 02/03/19 15:54 Wound Center Nurse 1 [Ulcer Assessment] #6 LLE ellison superior -Combined with other wound No -Current Size (cm) - Length 1.9 -Current Size (cm) - Width 0.7 -Current Size (cm) - Depth 0.1 -Total Square Cm 1.33 -Photo Taken No -Epithelialization Small 1-33% -Tunneling No -Undermining/Tunneling No -Circular Undermining No -Exudate Amt Small -Exudate Type Serosanguineous -Wound Margin Distinct, Outline Attached -Granulation Amt Small (1-33%) -Granulation Quality Red -Slough/Fibrin Yes -Necrosis Amt Large (67-100%) -Necrotic Tissue Type Adherent Slough -Texture (Jenny-wound Skin Appearance) Assessed, Scarring -Moisture (Jenny-wound Skin Appearance Assessed,Dry/ ) Scaly -Color (Jenny-wound Skin Appearance) Assessed, Hemosiderin Staining -Temperature (Jenny-wound Skin No Abnormality Appearance) (Pt Warm) -Tenderness on Palpation (Jenny-wound No Skin Appearance) -Ulcer Cleansing Rinsed/ Irrigated with Saline -Foul Odor after Cleansing No -Anesthetic Used 5% Lidocaine Gel [Edema Assessment] -Lower Limb Edema Present Yes -Left Calf (cm) 52 -Left Ankle (cm) 27.3 WC - Nurse 2 - General Ulcer CM Notes Start: 02/03/19 15:54 Freq: Status: Active Protocol: Activity Type Activity Date Activity User E-Sign Co-Sign Detail Recorded Client Recorded Date Recorded By Document 02/03/19 16:33 [id number] 02/03/19 16:34 02/03/19 16:33 Wound Center Nurse 2 [Procedure/Treatment] #6 LLE ellison superior -Time 16:34 -Correct Patient Yes -Correct Side, Site, Position Yes -Correct Procedure Yes -Procedure Performed Yes -Type of Procedure Debridement -Clinical Debridement Subcutaneous -Post Debridement Size (cm) - Length 1.9 -Post Debridement Size (cm) - Width 1.0 -Post Debridement Size (cm) - Depth 0.1 -Total Square Cm 1.90 -Wound/Ulcer Outcome Not Healed -Ulcer Cleansing Rinsed/ Irrigated with Saline -Foul Odor after Cleansing No -Bioengineered Tissue No -Bleeding Controlled with Pressure -Offloading No -Treatment Response Procedure Tolerated Well [See Physician Procedure note for Specifics] Pain Scale: 0-10 Numeric [Pain] -Is Patient Pain Free? Yes Musculoskeletal: No Tenderness to Palpation of Joints or Extremities, Muscle Wasting, - - Bilateral lower extremity lymphedema. Compartments are soft to palpate. Neurological: - - Lack of epicritic sensation light touch to ulcer site is noted Psych/Mental Status: Normal Affect, Appropriate Debridement Note Post-Debridement Measurements/Treatment WC - Nurse 2 - General Ulcer CM Notes Start: 02/03/19 15:54 Freq: Status: Active Protocol: Activity Type Activity Date Activity User E-Sign Co-Sign Detail Recorded Client Recorded Date Recorded By Document 02/03/19 16:33 [id number] 02/03/19 16:34 JEFF 02/03/19 16:33 Wound Center Nurse 2 #6 LLE ellison superior -Time 16:34 -Correct Patient Yes -Correct Side, Site, Position Yes -Correct Procedure Yes -Procedure Performed Yes -Type of Procedure Debridement -Clinical Debridement Subcutaneous -Post Debridement Size (cm) - Length 1.9 -Post Debridement Size (cm) - Width 1.0 -Post Debridement Size (cm) - Depth 0.1 -Total Square Cm 1.90 -Wound/Ulcer Outcome Not Healed -Ulcer Cleansing Rinsed/ Irrigated with Saline -Foul Odor after Cleansing No -Bioengineered Tissue No -Bleeding Controlled with Pressure -Offloading No -Treatment Response Procedure Tolerated Well Pain Scale: 0-10 Numeric Is Patient Pain Free? Yes Wound debrided: leg Laterality: Left Type of Debridement: Excisional debridement Anesthesia Used: 5% Lidocaine Gel Depth: in the subcutaneous layer Percentage of wound debrided: 100 Instrument Used: #15 blade Tissue Removed: fibrous, devitalized subcutaneous, biofilm, slough Severity: Fat Layer Exposed Amount of bleeding with debridement: Mild Bleeding Controlled with: Pressure Patient tolerated procedure well Assessment/Plan Active Problems Non-compliance (Chronic) Lymphedema (Chronic) Venous insufficiency (chronic) (peripheral) (Chronic) Delayed wound healing (Chronic) Chronic ulcer of left lower extremity with fat layer exposed (Chronic) new on 12/09 visit Assessment: Chronic and recurrent ulcer to the left ellison. venous insufficiency. h/o DVT to left lower extremity, already treated. lymphedema. non compliance. delayed healing Plan: I reviewed and discussed her case. The ulcer site was debrided today as noted in the clinical panel. She has lack of gross local or systemic signs of illness. She is completed a course of epi fix, advanced wound healing product. I recommend changing the dressing daily at this upcoming week with Adaptic and hydrogel; this was applied today. Adequate arterial perfusion is present to support ulcer healing. To continue nutritional supplementation. It is noted she cannot afford Trevor supplementation and this is not covered under her insurance at this time. She is reassured there are no signs of infection. Her previous venous intervention with Dr. Machado is noted and appreciated. I do recommend follow-up with Dr. Machado to see if additional intervention is an option and for maintenance follow-up. She is advised to schedule again today to investigate additional opportunities. Continue circaid wraps. I recommend an updated advanced gradient compression dressing because these lose their elasticity over time. Prior authorization is in process for farrow wraps which tends to fit longer legs better. This was discussed again today. To continue with lymphedema pumps up to twice daily and periodic elevation. To avoid idle standing or sitting. To continue elevation during work breaks; I agree this has helped with ulcer size reduction and edema as well. She will change her dressing daily at home. To continue periodic hourly elevation throughout the day. I recommend replacing the specialized compression garments with an updated pair of farrow wraps and this order was placed and she was not approved. I recommend a nutrition referral to optimize wound healing and reduce edema and weight. She was previously adamant that she will not attend; this is consistent with noncompliance. I explained the purpose and the benefits of this referral. To return to clinic in 1 week at the wound care center or call sooner if questions or concerns. I answered all of her questions today.
[2019-02-10 16:03] VITALS: BP 134/71; PULSE 67; RESP 18; TEMP 36.7
--- NOTE | 2019-02-10 16:27 | PN.PCM_ITS ---
(1) Chronic ulcer of left lower extremity with fat layer exposed Status: Chronic Current Visit: Yes Code(s): L97.922 - Non-pressure chronic ulcer of unspecified part of left lower leg with fat layer exposed Comment: new on 12/09 visit (2) Non-compliance Status: Chronic Current Visit: Yes Code(s): Z91.19 - Patient's noncompliance with other medical treatment and regimen (3) Lymphedema Status: Chronic Current Visit: Yes Code(s): I89.0 - Lymphedema, not elsewhere classified (4) Venous insufficiency (chronic) (peripheral) Status: Chronic Current Visit: Yes Code(s): I87.2 - Venous insufficiency (chronic) (peripheral) (5) Delayed wound healing Status: Chronic Current Visit: Yes Code(s): T14.8XXD - Other injury of unspecified body region, subsequent encounter Type of Wound Date of Service: 02/10/19 Chief Complaint: Chronic ulcer to the left lower extremity History of Wound: This 63 year old patient returns to the wound healing center for follow up of her chronic ulcer to her left ellison. She uses circaid wrap assisted and compression pumps. She denies pain, fever, chill, nausea, vomiting. She continues with aggressive compression therapy as advised. She denies redness or odor. She did schedule her follow-up with Dr. Machado as advised. She did not complete her paperwork to see if she can get approval for Farrow wraps to better control her lower extremity edema. Progress of Wound: stAble - Physical Exam Vital Signs Temp Pulse Resp BP 98.0 F 67 18 134/71 H 02/10/19 16:03 02/10/19 16:03 02/10/19 16:03 02/10/19 16:03 General: Alert, Oriented x3, Cooperative, No apparent distress Extremities: No cyanosis, Capillary Refill Less than 3 Seconds, No Calf Tenderness - Negative Italo and Castillo sign, Diminished Peripheral Pulses, Edema Skin: Ulcer/ Wound - No purulence, erythema hamstring, odor, infection Wound Measurements and Assessment WC - Nurse 1 - General Ulcer Measurement Start: 02/03/19 15:54 Freq: Status: Active Protocol: Activity Type Activity Date Activity User E-Sign Co-Sign Detail Recorded Client Recorded Date Recorded By Document 02/10/19 16:03 MW [id number] 02/10/19 16:08 MW 02/10/19 16:03 Wound Center Nurse 1 [Ulcer Assessment] #6 LLE ellison superior -Combined with other wound No -Current Size (cm) - Length 1.8 -Current Size (cm) - Width 0.6 -Current Size (cm) - Depth 0.1 -Total Square Cm 1.08 -Photo Taken No -Epithelialization Small 1-33% -Tunneling No -Undermining/Tunneling No -Circular Undermining No -Exudate Amt Small -Exudate Type Serosanguineous -Wound Margin Flat & Intact -Granulation Amt Large (67-100%) -Granulation Quality Red -Slough/Fibrin Yes -Necrosis Amt Small (1-33%) -Necrotic Tissue Type Adherent Slough -Structure Exposed N/A -Texture (Jenny-wound Skin Appearance) Assessed, Localized Edema ,Scarring -Moisture (Jenny-wound Skin Appearance No Abnormality, ) Assessed -Color (Jenny-wound Skin Appearance) No Abnormality, Assessed -Temperature (Jenny-wound Skin No Abnormality Appearance) (Pt Warm) -Tenderness on Palpation (Jenny-wound Yes Skin Appearance) -Ulcer Cleansing Rinsed/ Irrigated with Saline -Foul Odor after Cleansing No -Anesthetic Used 4% Lidocaine Solution [Edema Assessment] -Lower Limb Edema Present Yes -Left Calf (cm) 51.4 -Left Ankle (cm) 28.5 WC - Nurse 2 - General Ulcer CM Notes Start: 02/03/19 15:54 Freq: Status: Active Protocol: Activity Type Activity Date Activity User E-Sign Co-Sign Detail Recorded Client Recorded Date Recorded By Document 02/10/19 16:16 [id number] 02/10/19 16:18 02/10/19 16:16 Wound Center Nurse 2 [Procedure/Treatment] #6 LLE ellison superior -Time 16:16 -Correct Patient Yes -Correct Side, Site, Position Yes -Correct Procedure Yes -Procedure Performed Yes -Type of Procedure Debridement -Clinical Debridement Subcutaneous -Post Debridement Size (cm) - Length 1.8 -Post Debridement Size (cm) - Width 0.7 -Post Debridement Size (cm) - Depth 0.1 -Total Square Cm 1.26 -Wound/Ulcer Outcome Not Healed -Ulcer Cleansing Rinsed/ Irrigated with Saline -Foul Odor after Cleansing No -Bioengineered Tissue No -Bleeding Controlled with Pressure -Offloading No -Treatment Response Procedure Tolerated Well [See Physician Procedure note for Specifics] Pain Scale: 0-10 Numeric [Pain] -Is Patient Pain Free? Yes Musculoskeletal: No Tenderness to Palpation of Joints or Extremities, Muscle Wasting, - - Compartment soft to palpate no bogginess Neurological: - - Lack of normal epicritic sensation to light touch at the ulcer site Psych/Mental Status: Normal Affect, Appropriate Debridement Note Post-Debridement Measurements/Treatment WC - Nurse 2 - General Ulcer CM Notes Start: 02/03/19 15:54 Freq: Status: Active Protocol: Activity Type Activity Date Activity User E-Sign Co-Sign Detail Recorded Client Recorded Date Recorded By Document 02/03/19 16:33 [id number] 02/03/19 16:34 Document 02/10/19 16:16 [id number] 02/10/19 16:18 02/03/19 02/10/19 16:33 16:16 Wound Center Nurse 2 #6 LLE ellison superior -Time 16:34 16:16 -Correct Patient Yes Yes -Correct Side, Site, Position Yes Yes -Correct Procedure Yes Yes -Procedure Performed Yes Yes -Type of Procedure Debridement Debridement -Clinical Debridement Subcutaneous Subcutaneous -Post Debridement Size (cm) - Length 1.9 1.8 -Post Debridement Size (cm) - Width 1.0 0.7 -Post Debridement Size (cm) - Depth 0.1 0.1 -Total Square Cm 1.90 1.26 -Wound/Ulcer Outcome Not Healed Not Healed -Ulcer Cleansing Rinsed/ Rinsed/ Irrigated with Irrigated with Saline Saline -Foul Odor after Cleansing No No -Bioengineered Tissue No No -Bleeding Controlled with Pressure Pressure -Offloading No No -Treatment Response Procedure Procedure Tolerated Well Tolerated Well Pain Scale: 0-10 Numeric Is Patient Pain Free? Yes Yes Wound debrided: anterior leg Laterality: Left Type of Debridement: Excisional debridement Anesthesia Used: 5% Lidocaine Gel Depth: in the subcutaneous layer Percentage of wound debrided: 100 Instrument Used: #15 blade Tissue Removed: fibrous, devitalized subcutaneous, biofilm, slough Severity: Fat Layer Exposed Amount of bleeding with debridement: Mild Bleeding Controlled with: Pressure Patient tolerated procedure well Assessment/Plan Active Problems Non-compliance (Chronic) Lymphedema (Chronic) Venous insufficiency (chronic) (peripheral) (Chronic) Delayed wound healing (Chronic) Chronic ulcer of left lower extremity with fat layer exposed (Chronic) new on 12/09 visit Assessment: Chronic and recurrent ulcer to the left ellison. venous insufficiency. h/o DVT to left lower extremity, already treated. lymphedema. non compliance. delayed healing Plan: I reviewed and discussed her case. The ulcer site was debrided today as noted in the clinical panel. She has lack of gross local or systemic signs of illness. She has completed a course of epi fix, advanced wound healing product. I recommend changing the dressing daily at this upcoming week with Adaptic and hydrogel; this was applied today. Adequate arterial perfusion is present to support ulcer healing. To continue nutritional supplementation. It is noted she cannot afford Trevor supplementation and this is not covered under her insurance at this time. She is reassured there are no signs of infection. Her previous venous intervention with Dr. Machado is noted and appreciated. I do recommend follow-up with Dr. Machado to see if additional intervention is an option and for maintenance follow-up. This has been scheduled. Continue circaid wraps. I recommend an updated advanced gradient compression dressing because these lose their elasticity over time. Prior authorization is in process for farrow wraps which tends to fit longer legs better. This was discussed again today and she did not complete the paper work yet that she still has at home. To continue with lymphedema pumps up to twice daily and periodic elevation. To avoid idle standing or sitting. To continue elevation during work breaks; I agree this has helped with ulcer size reduction and edema as well. She will change her dressing daily at home. To continue periodic hourly elevation throughout the day. I recommend a nutrition referral to optimize wound healing and reduce edema and weight. She was previously adamant that she will not attend; this is consistent with noncompliance. I explained the purpose and the benefits of this referral. To return to clinic in 1 week at the wound care center or call sooner if questions or concerns. I answered all of her questions today.
== END 2019-02-27 23:59 ==
LOC: WC 16:00
PROVIDERS: Family Provider Internal Medicine; PCP Internal Medicine; Visit Provider Podiatrist
DX: I87.2 Venous insufficiency (chronic) (peripheral) (principal); I89.0 Lymphedema, not elsewhere classified; Z91.19 Patient's noncompliance with other medical treatment and regimen; L97.822 Non-pressure chronic ulcer of other part of left lower leg with fat layer exposed; Z86.718 Personal history of other venous thrombosis and embolism
CPT/HCPCS: 11042

== ENCOUNTER → 2022-12-10 | Outpatient (CLI) | payer MEDICARE, MEDICAID, SELFPAY ==
--- NOTE | 2022-12-10 12:43 | VDLE_ITS ---
Reason For Study: edema RIGHT LEFT GSV is normal. CFV is compressible, spontaneous, phasic, CFV is compressible, spontaneous, phasic, competent, and demonstrates normal competent and demonstrates normal augmentation. augmentation. FV is compressible, spontaneous, phasic, competent and demonstrates normal augmentation. POP V is compressible, spontaneous, phasic, competent and demonstrates normal augmentation. T/P Trunk is compressible. PTV is compressible. RT PerV is compressible. Procedure This is a venous duplex using B-mode, color flow and spectral Doppler. Exam performed in department. The exam was diagnostic. A preliminary report was called and/or faxed to Courtney's office. VL/Venous Duplex US, Unilateral Interpretation Summary Deep veins of the right lower extremity are patent and compressible segmentally . There is no evidence of right lower extremity deep vein thrombosis. Valvular competence maia ears intact within the proximal deep venous system on the right . The right great saphenous vein a ppears patent and compressible segmentally. The left common femoral vein is patent and compressib le . Ordering Physician: CORY NESS Referring Physician: Sarah Barnes Performed By: Ramón Kennedy RVT
== END | disposition home or self-care (01) ==
PROVIDERS: PCP Internal Medicine; Referring Provider Nurse Practitioner; Visit Provider Nurse Practitioner
DX: M79.604 Pain in right leg (principal); R60.0 Localized edema
CPT/HCPCS: 93971